=== PATIENT | female | born 1970 | race Caucasian/White ===

== ENCOUNTER → 2019-10-03 14:01 | Outpatient (BNVA) | payer MEDICAID, SELFPAY | PROVIDERS: Family Provider Family Medicine; PCP Nurse Practitioner; Visit Provider Anesthesiology | DX: M54.5 Low back pain (principal); Z79.891 Long term (current) use of opiate analgesic | CPT/HCPCS: 99213; 99214 ==

== ENCOUNTER → 2019-10-10 15:27 | Outpatient (BNVA) | payer MEDICAID, SELFPAY | PROVIDERS: Family Provider Family Medicine; PCP Nurse Practitioner; Visit Provider Internal Medicine Rheumatology | DX: M06.00 Rheumatoid arthritis without rheumatoid factor, unspecified site (principal); Z79.899 Other long term (current) drug therapy; Z11.1 Encounter for screening for respiratory tuberculosis; Z11.59 Encounter for screening for other viral diseases; Z72.89 Other problems related to lifestyle | CPT/HCPCS: 36415; 80076; 82565; 86480; 86706; 86803; 87340 ==

== ENCOUNTER → 2019-10-10 15:28 | Outpatient (BNVA) | payer MEDICAID, SELFPAY | PROVIDERS: Family Provider Family Medicine; PCP Nurse Practitioner; Visit Provider Internal Medicine Rheumatology | DX: M06.00 Rheumatoid arthritis without rheumatoid factor, unspecified site (principal) | CPT/HCPCS: 85025 ==

== ENCOUNTER → 2019-11-08 09:15 | Outpatient (BNVA) | payer MEDICAID, SELFPAY | PROVIDERS: Family Provider Family Medicine; PCP Nurse Practitioner; Visit Provider Internal Medicine Rheumatology | DX: M06.00 Rheumatoid arthritis without rheumatoid factor, unspecified site (principal); Z11.59 Encounter for screening for other viral diseases; Z79.899 Other long term (current) drug therapy; M17.0 Bilateral primary osteoarthritis of knee | CPT/HCPCS: 36415; G0463 ==

== ENCOUNTER 2019-11-08 11:02 | Outpatient (CLI) | payer MEDICAID, SELFPAY ==
--- NOTE | 2019-11-08 11:40 | XR_ITS ---
WS: [id number] XR hand RT min 3V* [id number] REASON FOR EXAM: rheumatoid arthritis FINDINGS: The right hand shows no swelling at the styloid processes of the ulna or radius. No destructive changes of the phalanges, metacarpals, carpals. XR/XR hand RT min 3V* [id number] IMPRESSION: Negative right hand.
--- NOTE | 2019-11-08 11:40 | XR_ITS ---
WS: [id number] XR hand LT min 3V* [id number] REASON FOR EXAM: rheumatoid arthritis FINDINGS: No swelling is seen in the wrist area. The phalanges, metacarpals, and carpal bones show no lytic changes or destructive changes. XR/XR hand LT min 3V* [id number] IMPRESSION: Negative left hand.
--- NOTE | 2019-11-08 11:40 | XR_ITS ---
WS: [id number] XR foot RT min 3V* [id number] REASON FOR EXAM: rheumatoid arthritis FINDINGS: The phalanges, metatarsals, tarsals all appear to be essentially normal. A prominent calcaneal spur is seen. XR/XR foot RT min 3V* [id number] IMPRESSION: Prominent calcaneal spur.
== END 2019-11-08 11:03 | disposition home or self-care (01) ==
LOC: RADWPI 11:05
PROVIDERS: Family Provider Family Medicine; PCP Nurse Practitioner; Visit Provider Internal Medicine Rheumatology
DX: M06.00 Rheumatoid arthritis without rheumatoid factor, unspecified site (principal); M77.32 Calcaneal spur, left foot; Z79.899 Other long term (current) drug therapy; Z11.59 Encounter for screening for other viral diseases
CPT/HCPCS: 73130; 73630; 82306; 85651; 86140; 86704

== ENCOUNTER 2020-01-10 08:58 | Outpatient (CLI) | payer MEDICAID, SELFPAY ==
[2020-01-10 09:05] VITALS: BP 143/88; PULSE 97; RESP 16; TEMP 36.8; O2SAT 98
[2020-01-10] MEDS: diphenhydrAMINE 50 mg/mL SDV 1mL 25 MG IVP (10:11)
[2020-01-10] MEDS: rituximab 1,000 MG in sodium chloride 0.9% 250 ML, primary tubing onc 1 EACH 70 MG IV (10:11)
[2020-01-10 14:40] VITALS: BP 130/77; PULSE 83; RESP 16; O2SAT 98
== END 2020-01-10 08:59 | disposition home or self-care (01) ==
LOC: RHEOACUTE 08:58
PROVIDERS: Family Provider Family Medicine; PCP Nurse Practitioner; Visit Provider Internal Medicine Rheumatology
DX: Z79.899 Other long term (current) drug therapy (principal); M06.09 Rheumatoid arthritis without rheumatoid factor, multiple sites
CPT/HCPCS: 36415; 80076; 82565; 85025; 85651; 86140; 96365; 96366; 96374; 96375; J1200; J2930; J7050; J9312

== ENCOUNTER → 2020-01-18 19:24 | Outpatient (BNVA) | payer MEDICAID, SELFPAY | PROVIDERS: Family Provider Family Medicine; PCP Nurse Practitioner; Visit Provider Internal Medicine Rheumatology | DX: D89.9 Disorder involving the immune mechanism, unspecified (principal); Z79.899 Other long term (current) drug therapy; R10.9 Unspecified abdominal pain | CPT/HCPCS: 81001; 87077; 87086; 87186 ==

== ENCOUNTER → 2020-01-25 12:46 | Outpatient (BNVA) | payer MEDICAID, SELFPAY | PROVIDERS: Family Provider Family Medicine; PCP Nurse Practitioner; Visit Provider Nurse Practitioner | DX: M54.5 Low back pain (principal); Z79.891 Long term (current) use of opiate analgesic | CPT/HCPCS: 99214 ==

== ENCOUNTER → 2020-01-31 12:55 | Outpatient (BNVA) | payer MEDICAID, SELFPAY | PROVIDERS: Family Provider Family Medicine; PCP Nurse Practitioner; Visit Provider Internal Medicine Rheumatology | DX: Z79.899 Other long term (current) drug therapy (principal); N39.0 Urinary tract infection, site not specified; A49.9 Bacterial infection, unspecified | CPT/HCPCS: 81001; 87077; 87086; 87186 ==

== ENCOUNTER → 2020-02-22 14:55 | Outpatient (BNVA) | payer MEDICAID, SELFPAY | PROVIDERS: Family Provider Family Medicine; PCP Nurse Practitioner; Visit Provider Anesthesiology | DX: M54.5 Low back pain (principal); Z51.81 Encounter for therapeutic drug level monitoring; Z79.891 Long term (current) use of opiate analgesic | CPT/HCPCS: 99213; 99214 ==

== ENCOUNTER → 2020-03-14 11:54 | Outpatient (BNVA) | payer MEDICAID, SELFPAY | PROVIDERS: Family Provider Family Medicine; PCP Nurse Practitioner; Visit Provider Internal Medicine Rheumatology | DX: E27.40 Unspecified adrenocortical insufficiency (principal); M06.09 Rheumatoid arthritis without rheumatoid factor, multiple sites; M17.0 Bilateral primary osteoarthritis of knee; M51.35 Other intervertebral disc degeneration, thoracolumbar region; M51.36 Other intervertebral disc degeneration, lumbar region; M92.72 Juvenile osteochondrosis of metatarsus, left foot; Z79.899 Other long term (current) drug therapy | CPT/HCPCS: 99214 ==

== ENCOUNTER → 2020-04-24 13:27 | Outpatient (BNVA) | payer MEDICAID, SELFPAY | PROVIDERS: Family Provider Family Medicine; PCP Nurse Practitioner; Visit Provider Nurse Practitioner | DX: M54.5 Low back pain (principal); Z79.891 Long term (current) use of opiate analgesic | CPT/HCPCS: 99214 ==

== ENCOUNTER → 2020-06-17 13:11 | Outpatient (BNVA) | payer MEDICAID, SELFPAY | PROVIDERS: Family Provider Family Medicine; PCP Nurse Practitioner; Visit Provider Internal Medicine Rheumatology | DX: M06.00 Rheumatoid arthritis without rheumatoid factor, unspecified site (principal); Z79.899 Other long term (current) drug therapy; B99.9 Unspecified infectious disease; Z23 Encounter for immunization; Z87.19 Personal history of other diseases of the digestive system; M17.0 Bilateral primary osteoarthritis of knee | CPT/HCPCS: 36415; 80076; 82565; 85025; 85651; 86140; 90471; 90686; 99214 ==

== ENCOUNTER → 2020-06-21 12:36 | Outpatient (BNVA) | payer MEDICAID, SELFPAY | PROVIDERS: Family Provider Family Medicine; PCP Nurse Practitioner; Visit Provider Anesthesiology | DX: M54.5 Low back pain (principal); Z79.891 Long term (current) use of opiate analgesic | CPT/HCPCS: 99212; 99214 ==

== ENCOUNTER → 2020-08-21 12:49 | Outpatient (BNVA) | payer MEDICAID, SELFPAY | PROVIDERS: Family Provider Family Medicine; PCP Nurse Practitioner; Visit Provider Anesthesiology | DX: M54.5 Low back pain (principal); M79.606 Pain in leg, unspecified; Z51.81 Encounter for therapeutic drug level monitoring; Z79.891 Long term (current) use of opiate analgesic | CPT/HCPCS: 99213; 99214 ==

== ENCOUNTER 2020-09-19 13:37 | Outpatient (CLI) | payer MEDICAID, SELFPAY ==
[2020-09-19 14:21] LABS: Basophils % 0.3 %; Hematocrit 44.2 % (37.0-47.0); Hemoglobin 14.8 g/dL (11.5-15.3); Lymphocytes # 0.8 10^3/uL (0.8-4.8); Lymphocytes % 8.2 %; Mean Corpuscular HGB Conc 33.5 g/dL (30.0-36.0); Mean Corpuscular Hemoglobin 29.6 pg (28.0-34.0); Mean Corpuscular Volume 88.4 fL (81-99); Mean Platelet Volume 9.1 fL (7.4-10.4); Monocytes # 0.4 10^3/uL (0.2-0.9); Monocytes % 4.6 %; Neutrophils # 8.27 10^3/uL (1.8-7.7); Neutrophils % 86.5 %; Nucleated Red Blood Cells % 0 %; Platelet Count 460 10^3/cmm (130-400); Red Cell Distribution Width 12.2 % (12.1-15.1); White Blood Count 9.6 10^3/uL (4.0-10.0)
[2020-09-19 14:43] LABS: Alanine Aminotransferase 28 U/L (0-33); Albumin Level 4.4 g/dL (3.5-5.2); Alkaline Phosphatase 70 IU/L (35-105); Aspartate Amino Transferase 14 U/L (0-32); C Reactive Protein 0.8 mg/L (0.0-4.9); Globulin 3.1 g/dL (1.3-4.6); Glomerular Filtration Rate 75.3 mL/min (90-130); Total Bilirubin 0.2 mg/dL (0.15-1.2); Total Protein 7.5 g/dL (6.6-8.7)
[2020-09-19 15:18] LABS: Erythrocyte Sedimentation Rate 16 mm/hr (0-15)
== END 2020-09-19 13:38 | disposition home or self-care (01) ==
LOC: LAB 13:43
PROVIDERS: PCP Nurse Practitioner; Visit Provider Internal Medicine Rheumatology
DX: Z79.899 Other long term (current) drug therapy (principal); M06.00 Rheumatoid arthritis without rheumatoid factor, unspecified site
CPT/HCPCS: 36415; 80076; 82565; 85025; 85651; 86140

== ENCOUNTER → 2020-10-24 13:14 | Outpatient (BNVA) | payer MEDICAID, SELFPAY | PROVIDERS: PCP Nurse Practitioner; Visit Provider Anesthesiology | DX: M54.5 Low back pain (principal); Z79.891 Long term (current) use of opiate analgesic | CPT/HCPCS: 99213 ==

== ENCOUNTER → 2020-12-24 13:16 | Outpatient (BNVA) | payer MEDICAID, SELFPAY | PROVIDERS: PCP Nurse Practitioner; Visit Provider Anesthesiology | DX: M54.5 Low back pain (principal); Z79.891 Long term (current) use of opiate analgesic | CPT/HCPCS: 99213 ==

== ENCOUNTER → 2021-01-07 13:16 | Outpatient (BNVA) | payer MEDICAID, SELFPAY | PROVIDERS: PCP Nurse Practitioner; Visit Provider Internal Medicine Rheumatology | DX: M06.041 Rheumatoid arthritis without rheumatoid factor, right hand (principal); M06.042 Rheumatoid arthritis without rheumatoid factor, left hand; Z79.899 Other long term (current) drug therapy; D80.1 Nonfamilial hypogammaglobulinemia; M17.0 Bilateral primary osteoarthritis of knee; M47.895 Other spondylosis, thoracolumbar region; Z87.891 Personal history of nicotine dependence | CPT/HCPCS: 99214 ==

== ENCOUNTER 2021-01-07 16:24 | Outpatient (CLI) | payer MEDICAID, SELFPAY ==
[2021-01-07 17:06] LABS: Basophils # 0.1 10^3/uL (0.0-0.1); Basophils % 1.3 %; Eosinophils # 0.1 10^3/uL (0.0-0.8); Hematocrit 44.1 % (37.0-47.0); Hemoglobin 14.7 g/dL (11.5-15.3); Lymphocytes # 1.7 10^3/uL (0.8-4.8); Lymphocytes % 19.8 %; Mean Corpuscular HGB Conc 33.3 g/dL (30.0-36.0); Mean Corpuscular Hemoglobin 30.1 pg (28.0-34.0); Mean Corpuscular Volume 90.2 fL (81-99); Mean Platelet Volume 8.7 fL (7.4-10.4); Monocytes # 0.5 10^3/uL (0.2-0.9); Neutrophils # 6.24 10^3/uL (1.8-7.7); Neutrophils % 71.6 %; Nucleated Red Blood Cells % 0 %; Platelet Count 401 10^3/cmm (130-400); Red Blood Count 4.89 10^6/uL (4.1-5.3); Red Cell Distribution Width 13.1 % (12.1-15.1); White Blood Count 8.7 10^3/uL (4.0-10.0)
[2021-01-07 20:07] LABS: Alanine Aminotransferase 52 U/L (0-33); Albumin Level 4.7 g/dL (3.5-5.2); Alkaline Phosphatase 69 IU/L (35-105); Aspartate Amino Transferase 31 U/L (0-32); C Reactive Protein 4.4 mg/L (0.0-4.9); Globulin 2.5 g/dL (1.3-4.6); Glomerular Filtration Rate 87.9 mL/min (90-130); Total Bilirubin 0.3 mg/dL (0.15-1.2); Total Protein 7.2 g/dL (6.6-8.7)
[2021-01-08 12:27] LABS: Creatinine, Random Urine 55 mg/dL (20-275); Protein, Total, Random 9 mg/dL (5-24); Protein/Creatinine Ratio 0.164 (0.021-0.161); Protein/Creatinine Ratio 164 mg/g creat (21-161)
[2021-01-09 08:58] LABS: Albumin,Urine Random 100 %; Alpha-1-Globulins Urine Random 0 %; Alpha-2-Globulins Urine Random 0 %; Beta-Globulin,Urine Random 0 %; Gamma Globulin,Urine Random 0 %
[2021-01-09 13:18] LABS: ALBUMIN 4.4 g/dL (3.8-4.8); ALPHA 1 GLOBULIN 0.4 g/dL (0.2-0.3); ALPHA 2 GLOBULIN 0.8 g/dL (0.5-0.9); BETA 1 GLOBULIN 0.6 g/dL (0.4-0.6); BETA 2 GLOBULIN 0.3 g/dL (0.2-0.5); GAMMA GLOBULIN 0.6 g/dL (0.8-1.7)
== END 2021-01-07 16:25 | disposition home or self-care (01) ==
PROVIDERS: PCP Nurse Practitioner; Visit Provider Internal Medicine Rheumatology
DX: M06.041 Rheumatoid arthritis without rheumatoid factor, right hand (principal); M06.042 Rheumatoid arthritis without rheumatoid factor, left hand; Z79.899 Other long term (current) drug therapy
CPT/HCPCS: 36415; 80076; 82565; 84155; 84165; 84260; 85025; 86140; 86335; 86355; 86357; 86359; 86360

== ENCOUNTER → 2021-02-21 13:35 | Outpatient (BNVA) | payer MEDICAID, SELFPAY | PROVIDERS: PCP Nurse Practitioner; Visit Provider Anesthesiology | DX: M54.5 Low back pain (principal); Z79.891 Long term (current) use of opiate analgesic; Z79.899 Other long term (current) drug therapy | CPT/HCPCS: 99213 ==

== ENCOUNTER → 2021-04-15 08:26 | Outpatient (BNVA) | payer MEDICAID, SELFPAY | PROVIDERS: PCP Nurse Practitioner; Visit Provider Anesthesiology | DX: M54.5 Low back pain (principal); Z51.81 Encounter for therapeutic drug level monitoring; Z79.899 Other long term (current) drug therapy; Z79.891 Long term (current) use of opiate analgesic | CPT/HCPCS: 99213 ==

== ENCOUNTER → 2021-06-17 08:16 | Outpatient (BNVA) | payer MEDICAID, SELFPAY | PROVIDERS: PCP Nurse Practitioner; Visit Provider Anesthesiology | DX: M54.50 Low back pain, unspecified (principal); Z02.89 Encounter for other administrative examinations; Z51.81 Encounter for therapeutic drug level monitoring; Z79.899 Other long term (current) drug therapy; Z79.891 Long term (current) use of opiate analgesic | CPT/HCPCS: 99213 ==

== ENCOUNTER → 2021-07-15 09:44 | Outpatient (BNVA) | payer MEDICAID, SELFPAY | PROVIDERS: PCP Family Medicine; Visit Provider Anesthesiology | DX: M54.50 Low back pain, unspecified (principal); Z51.81 Encounter for therapeutic drug level monitoring; Z79.891 Long term (current) use of opiate analgesic; Z79.899 Other long term (current) drug therapy; Z87.891 Personal history of nicotine dependence | CPT/HCPCS: 99213 ==

== ENCOUNTER → 2021-09-11 09:45 | Outpatient (BNVA) | payer MEDICAID, SELFPAY | PROVIDERS: PCP Family Medicine; Visit Provider Anesthesiology | DX: M54.50 Low back pain, unspecified (principal); Z79.891 Long term (current) use of opiate analgesic; Z79.899 Other long term (current) drug therapy | CPT/HCPCS: 99213 ==

== ENCOUNTER → 2021-09-22 11:45 | Outpatient (BNVA) | payer MEDICAID, SELFPAY | PROVIDERS: PCP Family Medicine; Visit Provider Internal Medicine Rheumatology | DX: M06.041 Rheumatoid arthritis without rheumatoid factor, right hand (principal); M06.042 Rheumatoid arthritis without rheumatoid factor, left hand; Z79.899 Other long term (current) drug therapy; D80.1 Nonfamilial hypogammaglobulinemia; M17.0 Bilateral primary osteoarthritis of knee; M47.896 Other spondylosis, lumbar region; M47.894 Other spondylosis, thoracic region; E27.40 Unspecified adrenocortical insufficiency; Z87.19 Personal history of other diseases of the digestive system; Z90.49 Acquired absence of other specified parts of digestive tract; Z71.89 Other specified counseling | CPT/HCPCS: 99214 ==

== ENCOUNTER → 2022-01-07 11:32 | Outpatient (BNVA) | payer MEDICAID, SELFPAY | PROVIDERS: PCP Family Medicine; Visit Provider Internal Medicine Rheumatology | DX: M06.041 Rheumatoid arthritis without rheumatoid factor, right hand (principal); M06.042 Rheumatoid arthritis without rheumatoid factor, left hand; M15.9 Polyosteoarthritis, unspecified; Z79.899 Other long term (current) drug therapy; D80.1 Nonfamilial hypogammaglobulinemia; Z71.89 Other specified counseling; Z90.49 Acquired absence of other specified parts of digestive tract | CPT/HCPCS: 99214 ==

== ENCOUNTER 2022-02-05 04:33 | Observation (INO) | payer MEDICAID, SELFPAY ==
[2022-02-05] VITALS (15 sets, daily range): BP systolic 131–172; BP diastolic 81–115; PULSE 73–98; RESP 14–22; TEMP 36.5–36.9; O2SAT 93–100; BMI 36.0; BMI 34.7
--- NOTE | 2022-02-05 04:35 | ED_ITS ---
Documented by User: Byron Rodriguez MD 02/18/22 19:36 HPI - Abdominal Pain General: Chief Complaint: Abdominal Pain Stated Complaint: ABD pain Time Seen by Provider: 02/05/22 04:36 History of Present Illness: Ms. Smith is a 51-year-old lady with history of se ronegative rheumatoid arthritis, hypogammaglobulinemia, history of diverticulitis, and history of abdominal surgery who presents to the emergency department due to abdominal pain. Onset of symptoms was subacute approximately 36 hours ago without known specific provoking event. She reports initially mild symptoms however they progressively worsened and are now moderate to severe. This has been a significant worsening over the past 6 hours. She has had a few episodes of nonbloody emesis. She reports a small bowel movement yesterday morning which was loose. Denies other changes in bowel movements or urination. No vaginal bleeding or discharge. She reports that this feels similar to prior episode of bowel perforation related to medication that required resection of colon a few years ago No other specific changes in health, exacerbating, or alleviating factors identified. Onset (ago): hour(s) Pain Consistency: constant Location: Diffuse Severity: severe Radiation: back Exacerbating factors: movement Relieving factors: nothing Associated Symptoms: Reports nausea and vomiting Review of Systems General: Reports: 10 or more systems reviewed and unremarkable except in HPI and below GI: Reports: nausea and vomiting PFSH ED PFSH: Medical History Anxiety state Back pain, lumbosacral Cholecystectomy planned Cystocele Encounter for long-term use of opiate analgesic High risk medication use Hx of diverticulitis of colon Hypogammaglobulinemia Immunization counseling Immunosuppression Opioid contract exists Rectocele Recurrent infections Rheumatoid arthritis with negative rheumatoid factor Seronegative rheumatoid arthritis Seronegative rheumatoid arthritis of both hands Surgical History H/O arthroscopic knee surgery H/O section H/O dilation and curettage H/O hernia repair H/O left knee surgery ACL right History of colon resection Family History Other CAD (coronary artery disease) Diabetes Hypertension Psychiatric illness Rheumatoid arthritis Systemic lupus erythematosus, unspecified Denies family history of Anesthesia complication Bleeding disorder Social History Smoking and tobacco status: never smoked Second hand smoke exposure: No Alcohol intake: former History of recent travel: No Physical Exam Const: COMMON NORMALS: alert GENERAL APPEARANCE: cooperative, well developed, in distress (Physical discomfort due to pain) and ill appearing (Mildly) HENMT: COMMON NORMALS: normocephalic and atraumatic HEAD & SCALP: normocephalic and atraumatic Eye: COMMON NORMALS: conjunctivae normal CONJUNCTIVA: Yes conjunctivae normal SCLERA: sclerae normal Neck/C-Spine: COMMON NORMALS: supple GENERAL: Yes trachea midline Resp: COMMON NORMALS: normal respiratory effort and clear to auscultation bilaterally EFFORT & INSPECTION: Yes able to speak in complete sentences AUSCULTATION: clear to auscultation bilaterally Cardio: COMMON NORMALS: regular rhythm RATE: tachycardic RHYTHM: regular rhythm GI: COMMON NORMALS: Soft to palpation PALPATION: Yes Soft to palpation, Yes Tenderness to palpation present (GI), No Guarding due to palpation present (GI) and No Rigid due to palpation PERCUSSION: normal to percussion Extremity: GENERAL: Yes normal exam except as noted and No edema Neuro: COMMON NORMALS: moves all extremities SENSORIUM/ORIENTATION: Yes alert and No Orientation impaired Psych: COMMON NORMALS: mental status grossly normal and Normal thought process present THOUGHT PROCESS: Normal thought process present Course ED course: - Patient was seen and evaluated by me at bedside - Patient placed on cardiac monitors, IV access obtained - Initial evaluation notable for exam as above, discomfort due to pain. - Labs and xrays personally interpreted by me. EKG notable for sinus rhythm, nonspecific abnormalities, no STEMI. -Analgesia and antiemetic ordered. - Labs notable for minimal leukocytosis, normal hemoglobin. Electrolytes unremarkable, mild elevated ALT of unclear etiology. - Patient care handed off to morning ED physician Dr. Jones pending imaging read for disposition. Vital Signs: Vital signs: Vital Signs Temperature 98.4 F 02/06/22 15:30 Pulse Rate 101 H 02/06/22 15:30 Respiratory Rate 16 02/06/22 15:30 Blood Pressure 152/100 02/06/22 15:30 Pulse Oximetry 97 02/06/22 15:30 MDM - Abdominal Pain Medical Records I reviewed the patient's medical records. Lab Data I reviewed the patient's lab results. : 02/06/22 03:04 02/06/22 03:04 Labs/Radiology: Radiology Impressions Abdomen/Pelvis CT 02/05/22 05:10 IMPRESSION: Infraumbilical ventral hernia causing small bowel obstruction with signs suggesting strangulation. ADDENDUM: 02/05/22 0658 THIS REPORT CONTAINS FINDINGS THAT MAY BE CRITICAL TO PATIENT CARE. The exam findings were verbally communicated by me via telephone conference to DR. JONES at 6:50 AM CDT on 02/05/2022. The findings were acknowledged and understood. Chest X-Ray 02/05/22 08:52 Impression: Insertion of nasogastric tube. Laboratory Results WBC 10.3 10^3/uL (4.0-10.0) H 02/05/22 04:45 RBC 5.10 10^6/uL (4.1-5.3) 02/05/22 04:45 Hgb 15.2 g/dL (11.5-15.3) 02/05/22 04:45 Hct 43.6 % (37.0-47.0) 02/05/22 04:45 MCV 85.5 fl (81-99) 02/05/22 04:45 MCH 29.8 pg (28.0-34.0) 02/05/22 04:45 MCHC 34.9 g/dL (30.0-36.0) 02/05/22 04:45 RDW 12.8 % (12.1-15.1) 02/05/22 04:45 Plt Count 387 10^3/cmm (130-400) 02/05/22 04:45 MPV 8.9 fL (7.4-10.4) 02/05/22 04:45 Neut % (Auto) 60.6 % 02/05/22 04:45 Lymph % (Auto) 32.5 % 02/05/22 04:45 [place] % (Auto) 4.4 % 02/05/22 04:45 Eos % (Auto) 1.2 % 02/05/22 04:45 Baso % (Auto) 0.9 % 02/05/22 04:45 Neut # (Auto) 6.23 10^3/uL (1.8-7.7) 02/05/22 04:45 Lymph # (Auto) 3.3 10^3/uL (0.8-4.8) 02/05/22 04:45 [place] # (Auto) 0.5 10^3/uL (0.2-0.9) 02/05/22 04:45 Eos # (Auto) 0.1 10^3/uL (0.0-0.8) 02/05/22 04:45 Baso # (Auto) 0.1 10^3/uL (0.0-0.1) 02/05/22 04:45 Nucleated RBC % (auto) 0 % 02/05/22 04:45 Nucleated RBCs # 0.0 /100WBC 02/05/22 04:45 Sodium 140 mmol/L (136-145) 02/05/22 04:45 Potassium 3.8 mmol/L (3.5-5.1) 02/05/22 04:45 Chloride 98 mmol/L (98-107) 02/05/22 04:45 Carbon Dioxide 29 mmol/L (22-29) 02/05/22 04:45 Anion Gap 16.8 (5-19) 02/05/22 04:45 BUN 13 mg/dL (6-20) 02/05/22 04:45 Creatinine 0.8 mg/dL (0.5-0.9) 02/05/22 04:45 GFR Calculation 75.0 mL/min (90-130) L 02/05/22 04:45 Glucose 128 mg/dL (65-115) H 02/05/22 04:45 Calculated Osmolality 292 mOsm/kg (285-295) 02/05/22 04:45 Lactic Acid 2.6 mmol/L (0.5-2.2) H 02/05/22 04:55 Calcium 9.6 mg/dL (8.5-10.5) 02/05/22 04:45 Total Bilirubin 0.3 mg/dL (0.15-1.2) 02/05/22 04:45 AST 29 U/L (0-32) 02/05/22 04:45 ALT 43 U/L (0-33) H 02/05/22 04:45 Alkaline Phosphatase 76 IU/L (35-105) 02/05/22 04:45 Total Protein 7.6 g/dL (6.6-8.7) 02/05/22 04:45 Albumin 4.5 g/dL (3.5-5.2) 02/05/22 04:45 Globulin 3.1 g/dL (1.3-4.6) 02/05/22 04:45 Lipase 22 U/L (13-60) 02/05/22 04:45 Discharge Plan Discharge Patient Disposition: Admitted As Inpatient Admit Provider: Pola Macias Clinical Impression: Hernia of abdominal wall Condition: Stable Discharge Diet: Advance as tolerated Discharge Activity: Resume usual activity Sign Out Sign Out Data: Patient Sign Out occurred on 02/05/22 at 06:08. Patient's care was discussed, and care was transferred from to Richard Jones DO. Coding Level of Care Code ED Industrial Tractor Driver for Chg Fwd Exam Comprehensive Documented by User: Richard Jones DO 02/05/22 08:17 HPI - Abdominal Pain 2 General: Chief Complaint: Abdominal Pain Stated Complaint: ABD pain Time Seen by Provider: 02/05/22 04:36 PFSH ED PFSH: Medical History Anxiety state Back pain, lumbosacral Cholecystectomy planned Cystocele Encounter for long-term use of opiate analgesic High risk medication use Hx of diverticulitis of colon Hypogammaglobulinemia Immunization counseling Immunosuppression Opioid contract exists Rectocele Recurrent infections Rheumatoid arthritis with negative rheumatoid factor Seronegative rheumatoid arthritis Seronegative rheumatoid arthritis of both hands Surgical History H/O arthroscopic knee surgery H/O section H/O dilation and curettage H/O hernia repair H/O left knee surgery ACL right History of colon resection Family History Other CAD (coronary artery disease) Diabetes Hypertension Psychiatric illness Rheumatoid arthritis Systemic lupus erythematosus, unspecified Denies family history of Anesthesia complication Bleeding disorder Social History Smoking and tobacco status: never smoked Second hand smoke exposure: No Alcohol intake: former History of recent travel: No Course Vital Signs: Vital signs: Vital Signs Temperature 98.4 F 02/06/22 15:30 Pulse Rate 101 H 02/06/22 15:30 Respiratory Rate 16 02/06/22 15:30 Blood Pressure 152/100 02/06/22 15:30 Pulse Oximetry 97 02/06/22 15:30 MDM - Abdominal Pain Medical Decision Making Patient CT exam shows an infraumbilical ventral hernia that has an SBO with likely strangulation. Patient was seen by Dr. Macias in the ER. Dr. Macias was able to reduce. He will admit her to his service for further management. Patient did have an NG tube placed per his request in the ER. Patient was stable upon admission. Lab Data : 02/06/22 03:04 02/06/22 03:04 Labs/Radiology: Radiology Impressions Abdomen/Pelvis CT 02/05/22 05:10 IMPRESSION: Infraumbilical ventral hernia causing small bowel obstruction with signs suggesting strangulation. ADDENDUM: 02/05/22 0658 THIS REPORT CONTAINS FINDINGS THAT MAY BE CRITICAL TO PATIENT CARE. The exam findings were verbally communicated by me via telephone conference to DR. JONES at 6:50 AM CDT on 02/05/2022. The findings were acknowledged and understood. Chest X-Ray 02/05/22 08:52 Impression: Insertion of nasogastric tube. Laboratory Results WBC 10.3 10^3/uL (4.0-10.0) H 02/05/22 04:45 RBC 5.10 10^6/uL (4.1-5.3) 02/05/22 04:45 Hgb 15.2 g/dL (11.5-15.3) 02/05/22 04:45 Hct 43.6 % (37.0-47.0) 02/05/22 04:45 MCV 85.5 fl (81-99) 02/05/22 04:45 MCH 29.8 pg (28.0-34.0) 02/05/22 04:45 MCHC 34.9 g/dL (30.0-36.0) 02/05/22 04:45 RDW 12.8 % (12.1-15.1) 02/05/22 04:45 Plt Count 387 10^3/cmm (130-400) 02/05/22 04:45 MPV 8.9 fL (7.4-10.4) 02/05/22 04:45 Neut % (Auto) 60.6 % 02/05/22 04:45 Lymph % (Auto) 32.5 % 02/05/22 04:45 [place] % (Auto) 4.4 % 02/05/22 04:45 Eos % (Auto) 1.2 % 02/05/22 04:45 Baso % (Auto) 0.9 % 02/05/22 04:45 Neut # (Auto) 6.23 10^3/uL (1.8-7.7) 02/05/22 04:45 Lymph # (Auto) 3.3 10^3/uL (0.8-4.8) 02/05/22 04:45 [place] # (Auto) 0.5 10^3/uL (0.2-0.9) 02/05/22 04:45 Eos # (Auto) 0.1 10^3/uL (0.0-0.8) 02/05/22 04:45 Baso # (Auto) 0.1 10^3/uL (0.0-0.1) 02/05/22 04:45 Nucleated RBC % (auto) 0 % 02/05/22 04:45 Nucleated RBCs # 0.0 /100WBC 02/05/22 04:45 Sodium 140 mmol/L (136-145) 02/05/22 04:45 Potassium 3.8 mmol/L (3.5-5.1) 02/05/22 04:45 Chloride 98 mmol/L (98-107) 02/05/22 04:45 Carbon Dioxide 29 mmol/L (22-29) 02/05/22 04:45 Anion Gap 16.8 (5-19) 02/05/22 04:45 BUN 13 mg/dL (6-20) 02/05/22 04:45 Creatinine 0.8 mg/dL (0.5-0.9) 02/05/22 04:45 GFR Calculation 75.0 mL/min (90-130) L 02/05/22 04:45 Glucose 128 mg/dL (65-115) H 02/05/22 04:45 Calculated Osmolality 292 mOsm/kg (285-295) 02/05/22 04:45 Lactic Acid 2.6 mmol/L (0.5-2.2) H 02/05/22 04:55 Calcium 9.6 mg/dL (8.5-10.5) 02/05/22 04:45 Total Bilirubin 0.3 mg/dL (0.15-1.2) 02/05/22 04:45 AST 29 U/L (0-32) 02/05/22 04:45 ALT 43 U/L (0-33) H 02/05/22 04:45 Alkaline Phosphatase 76 IU/L (35-105) 02/05/22 04:45 Total Protein 7.6 g/dL (6.6-8.7) 02/05/22 04:45 Albumin 4.5 g/dL (3.5-5.2) 02/05/22 04:45 Globulin 3.1 g/dL (1.3-4.6) 02/05/22 04:45 Lipase 22 U/L (13-60) 02/05/22 04:45 Discharge Plan Discharge Patient Disposition: Admitted As Inpatient Admit Provider: Pola Macias Clinical Impression: Hernia of abdominal wall Condition: Stable Discharge Diet: Advance as tolerated Discharge Activity: Resume usual activity Sign Out Sign Out Data: Patient Sign Out occurred on 02/05/22 at 06:08. Patient's care was discussed, and care was transferred from to Richard Jones . Coding Level of Care Code ED Industrial Tractor Driver for Dannyg Fwd Exam Comprehensive
--- NOTE | 2022-02-05 04:44 | ECG_ITS ---
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 Measurements Intervals [place] Rate: P: RI: QRS: QRSD: T: QT: QTc: Interpretive Statements Normal sinus rhythm Possible left atrial enlargement Possible old septal IN ATYPICAL ECG WARNING: DATA QUALITY MAY AFFECT INTERPRETATION Compared to ECG 08/08/2017 12:25:41 Sinus rhythm no longer present Electronically Signed On 02-06-2022 5:44:44 CDT by Kun Spencer M.D. [email or web address]
[2022-02-05] MEDS: morphine 4 mg/mL SDV 1 mL IVP ×4 (04:48→17:56)
[2022-02-05] MEDS: ondansetron 2 mg/ML SDV 2 mL 4 MG IVP ×3 (04:49→15:22)
[2022-02-05 04:52] LABS: Basophils # 0.1 10^3/uL (0.0-0.1); Basophils % 0.9 %; Eosinophils # 0.1 10^3/uL (0.0-0.8); Eosinophils % 1.2 %; Hematocrit 43.6 % (37.0-47.0); Hemoglobin 15.2 g/dL (11.5-15.3); Lymphocytes # 3.3 10^3/uL (0.8-4.8); Lymphocytes % 32.5 %; Mean Corpuscular HGB Conc 34.9 g/dL (30.0-36.0); Mean Corpuscular Hemoglobin 29.8 pg (28.0-34.0); Mean Corpuscular Volume 85.5 fl (81-99); Mean Platelet Volume 8.9 fL (7.4-10.4); Monocytes # 0.5 10^3/uL (0.2-0.9); Monocytes % 4.4 %; Neutrophils # 6.23 10^3/uL (1.8-7.7); Neutrophils % 60.6 %; Nucleated Red Blood Cells % 0 %; Platelet Count 387 10^3/cmm (130-400); Red Cell Distribution Width 12.8 % (12.1-15.1); White Blood Count 10.3 10^3/uL (4.0-10.0)
--- NOTE | 2022-02-05 05:10 | CTR_ITS ---
PROCEDURE INFORMATION: Exam: CT Abdomen And Pelvis With Contrast Exam date and time: 02/05/2022 5:25 AM Age: 51 years old Clinical indication: Abdominal pain; Prior surgery; Surgery type: Csection. Hernia repair. Colon resection. Patient HX: C/O severe periumbilical pain x 3 days. History of bowel perforation. ; Additional info: Abdominal pain, n/v, radiation to back; elevated lactic acid. TECHNIQUE: Imaging protocol: Computed tomography of the abdomen and pelvis with contrast. Radiation optimization: All CT scans at this facility use at least one of these dose optimization techniques: automated exposure control; mA and/or kV adjustment per patient size (includes targeted exams where dose is matched to clinical indication); or iterative reconstruction. Contrast material: OMNI 350; Contrast volume: 75 ml; Contrast route: INTRAVENOUS (IV); COMPARISON: CT Abdomen/Pelvis Renal [id number] 05/18/2016 9:30 AM RADIATION DOSE METRICS: Total DLP (mGy-cm): 1645.15 FINDINGS: Liver: The liver is homogeneous and is not enlarged. Gallbladder and bile ducts: Prior cholecystectomy. No biliary ductal dilatation allowing for that. Pancreas: No pancreatic mass. No peripancreatic inflammation. No pancreatic ductal dilation. Spleen: The spleen is homogeneous and is not enlarged. Adrenal glands: No adrenal mass. Kidneys and ureters: No hydronephrosis, nephrolithiasis, or renal mass. Stomach and bowel: There are multiple loops of mid and distal small bowel which are distended, contain fluid, and demonstrate air-fluid levels and a small bowel feces sign . There is wall thickening involving the terminal ileum which is located in an infraumbilical ventral hernia. Large amount of stool in the proximal colon. No diverticulitis. Prior resection in the sigmoid colon with a widely patent anastomosis. Appendix: No evidence of appendicitis. Intraperitoneal space: There is small volume low-attenuation free intraperitoneal fluid. No pneumoperitoneum. Vasculature: No abdominal aortic aneurysm. The mesenteric arteries are patent. The mesenteric, portal, and hepatic veins are patent. Lymph nodes: No enlarged lymph nodes. Urinary bladder: No urinary bladder calculus or wall thickening. Reproductive: Prior hysterectomy. Bones/joints: Multilevel facet arthropathy in the lumbar spine. Grade 1 degenerative spondylolisthesis at L4-L5. Multilevel disc degeneration with vacuum disc phenomenon in the lower thoracic spine. Nonspecific sclerotic focus in the L5 vertebral body. Soft tissues: There is an infraumbilical ventral hernia containing fluid and a short segment of small bowel. The bowel in the hernia is the terminal ileum as the cecum is located in the mid abdomen. This is associated with obstruction of the small bowel. The terminal ileal wall is thickened. CT/CT abdomen pelvis w con* [id number] IMPRESSION: Infraumbilical ventral hernia causing small bowel obstruction with signs suggesting strangulation.
[2022-02-05 05:20] LABS: Alanine Aminotransferase 43 U/L (0-33); Albumin Level 4.5 g/dL (3.5-5.2); Alkaline Phosphatase 76 IU/L (35-105); Anion Gap 16.8 (5-19); Aspartate Amino Transferase 29 U/L (0-32); Blood Urea Nitrogen 13 mg/dL (6-20); Calcium 9.6 mg/dL (8.5-10.5); Carbon Dioxide 29 mmol/L (22-29); Chloride 98 mmol/L (98-107); Globulin 3.1 g/dL (1.3-4.6); Glucose 128 mg/dL (65-115); Lipase 22 U/L (13-60); Osmolality Calculated 292 mOsm/kg (285-295); Potassium 3.8 mmol/L (3.5-5.1); Sodium 140 mmol/L (136-145); Total Bilirubin 0.3 mg/dL (0.15-1.2); Total Protein 7.6 g/dL (6.6-8.7)
[2022-02-05 05:21] LABS: Lactic Sepsis W/Reflex 2.6 mmol/L (0.5-2.2)
[2022-02-05] MEDS: iohexol 350 mg/mL 100 mL Btl IV (05:23)
[2022-02-05] MEDS: sodium chloride 0.9% 1,000 ML 999 ML IV (05:47)
[2022-02-05] MEDS: morphine 4 mg/mL SDV 1 mL 2 MG IVP (06:36)
[2022-02-05 06:43] LABS: Reflex Lactate Order REFLEX LACTIC ORDERD
--- NOTE | 2022-02-05 07:50 | PC.NURSE ---
Patient reports pain and nausea.
--- NOTE | 2022-02-05 08:52 | XR_ITS ---
WS: [id number] Portable AP upright chest, 02/05/2022 Clinical Data: ng tube placement Comparison: Portable chest, 08/08/2017. Findings: A nasogastric gastric tube has been inserted and appears to end in the body of the stomach. No acute cardiopulmonary changes are seen. XR/XR chest 1V [id number] Impression: Insertion of nasogastric tube.
--- NOTE | 2022-02-05 09:48 | PC.NURSE ---
Called pharmacy for antibiotic, stated they are working on the verification so that medication can be pulled.
[2022-02-05] MEDS: piperacillin-tazobactam 3.375 GM in sodium chloride 0.9% (plus) 50 ML IV ×2 (09:55→17:54)
--- NOTE | 2022-02-05 10:21 | PC.NURSE ---
Patient ambulating to the bathroom.
[2022-02-05 10:48] LABS: Lactic Acid level (Lactate) 1.1 mmol/L (0.5-2.2)
--- NOTE | 2022-02-05 11:38 | P.HP_ITS ---
Providers/Chief Complaint Admitting Physician: Pola Macias DO Primary Care Provider: Nir Paulson Chief Complaint: ABD pain History of Present Illness Cathi Smith is a 51 year old female who presented to the hospital with a 3-day history of abdominal pain. She reports that her pain began to become severe 12 hours ago prompting her to come to the hospital. She reports nausea and vomiting. Denies any hematemesis. Her pain is suprapubic sharp and severe. Pain does not radiate. Palpation makes the pain worse. Nothing makes pain better. She had not had a bowel movement in 1 day. Denies any other symptoms Review of Systems General: Reports: 10 or more systems reviewed and unremarkable except in HPI and below Medications/Allergies Home Medications Medication Instructions Recorded Confirmed Last Taken Type conjugated estrogens 0.625 mg/gram 0.625 mg VAGINAL .COMPLEX 10/03/19 02/05/22 02/04/22 History vaginal cream (Premarin) losartan 100 mg tablet 100 mg PO DAILY 10/03/19 02/05/22 02/04/22 History promethazine 25 mg tablet 25 mg PO Q6H PRN 10/03/19 02/05/22 Unknown History fluticasone propionate 50 1 spray INTRANASAL DAILY 11/08/19 02/05/22 Unknown History mcg/actuation nasal spray,suspension levalbuterol tartrate 45 2 inh INHALATION Q4H PRN gm 11/08/19 02/05/22 Unknown History mcg/actuation aerosol inhaler (Xopenex HFA) mometasone-formoterol HFA 100 2 puff INHALATION BID 11/08/19 02/05/22 Unknown History mcg-5 mcg/actuation aerosol inhaler (Dulera) lancets 33 gauge (Micro Thin #100 each 11/09/19 02/05/22 Unknown History Lancets) azelastine 137 mcg (0.1 %) nasal 1 spray INTRANASAL BID 11/29/19 02/05/22 Unknown History spray aerosol ascorbic acid (vitamin C) 500 mg 500 mg PO DAILY cap 01/25/20 02/05/22 02/04/22 History capsule vitamin B complex 1 cap PO DAILY 01/25/20 02/05/22 02/04/22 History famotidine 40 mg tablet 40 mg PO DAILY #90 tab 03/05/20 02/05/22 02/04/22 Rx jaden root 1 tab PO DAILY 04/24/20 02/05/22 02/04/22 History cholecalciferol (vitamin D3) 50 50 mcg PO DAILY 06/17/20 02/05/22 02/04/22 His tory mcg (2,000 unit) capsule spironolactone 50 mg tablet 50 mg PO BID #60 tab 07/26/20 02/05/22 02/04/22 Rx hydrocortisone 10 mg tablet 20 mg PO BID tab 01/07/21 02/05/22 02/04/22 History immune globulin,gamma(IgG)klhw 10 g SUBCUT Q7D ml 04/15/21 02/05/22 Unknown History levocetirizine 5 mg tablet (Xyzal) 5 mg PO DAILY 06/17/21 02/05/22 02/04/22 History metformin 500 mg tablet 500 mg PO BID 06/17/21 02/05/22 02/04/22 History hydrocodone 10 mg-acetaminophen 1 tab PO .5 times a day PRN 30 09/11/21 02/05/22 Unknown Rx 325 mg tablet Days #150 tab sarilumab 200 mg/1.14 mL 200 mg (1.14 mL) SUBCUT .[id number] 12/16/21 02/05/22 Unknown Rx subcutaneous pen injector (Jeffzara) #2.28 ml prednisone 10 mg tablet See Rx Instructions PO .COMPLEX 01/07/22 02/05/22 Unknown Rx PRN #30 tab amlodipine 5 mg tablet 5 mg PO DAILY 02/05/22 02/05/22 02/04/22 History diclofenac sodium 1 % topical gel 4 g TOPICAL QID PRN 02/05/22 02/05/22 Unknown History Allergies Allergy/AdvReac Type Severity Reaction Status Date / Time gabapentin Allergy unknown Verified 01/07/22 11:52 albuterol AdvReac Unknown RASH, Verified 01/07/22 11:52 BLISTERS TO FACE AND HTN certolizumab pegol AdvReac Unknown SWELLING Verified 01/07/22 11:52 [From Cimzia] etanercept [From Enbrel] AdvReac Unknown UNKNOWN Verified 01/07/22 11:52 hydralazine AdvReac Unknown HEADACHE/HT Verified 01/07/22 11:52 N/FLUSHING lisinopril AdvReac Unknown Unknown Verified 01/07/22 11:52 PFSH Acute 2 PFSH: Medical History Anxiety state Back pain, lumbosacral Cholecystectomy planned Cystocele Encounter for long-term use of opiate analgesic High risk medication use Hx of diverticulitis of colon Hypogammaglobulinemia Immunization counseling Immunosuppression Opioid contract exists Rectocele Recurrent infections Rheumatoid arthritis with negative rheumatoid factor Seronegative rheumatoid arthritis Seronegative rheumatoid arthritis of both hands Surgical History H/O arthroscopic knee surgery H/O section H/O dilation and curettage H/O hernia repair H/O left knee surgery ACL right History of colon resection Family History Other CAD (coronary artery disease) Diabetes Hypertension Psychiatric illness Rheumatoid arthritis Systemic lupus erythematosus, unspecified Denies family history of Anesthesia complication Bleeding disorder Social History Smoking and tobacco status: never smoked Second hand smoke exposure: No Alcohol intake: former History of recent travel: No Vitals/I&O/Wt Last Vital Signs Temp 98.0 F 02/05/22 04:45 Pulse 82 02/05/22 10:10 Resp 18 02/05/22 10:10 BP 143/81 02/05/22 10:10 Pulse Ox 93 02/05/22 10:10 Weight last 48 hrs Weight 230 lb Physical Exam Narrative: General : Patient is well developed , no acute distress, oriented x3 Head : Normal cephalic, a-traumatic. Ears : Pinnae and external canal are normal. Hearing is normal. Eyes : PERRLA, Sclera and injection are normal. No conjunctival discharge. Nose : Mucous membranes are without erythema. Throat : buccal mucosa is normal, gums are without significant recession or hypertrophy. Lungs : Equal chest rise bilaterally, no use of accessory muscles, trachea is midline. Cor : Rate and rhythm are normal. Abdomen : Soft, distended, tender palpation suprapubically over an incisional hernia which I was able to reduce no g/r/m Extremities : No edema, no cyanosis or clubbing, dorsalis pedis pulses are present bilaterally, non-tender to palpation of calves. Upper extremities are normal bilaterally. Back : non-tender to palpation, no CVA tenderness. Neuro : CN II - XII intact, Upper and lower extremities have equal and full strength Data : 02/05/22 04:45 02/05/22 04:45 A&P Assessment and plan (1) Incarcerated incisional hernia: Status: Acute (2) Small bowel obstruction: Status: Acute Plan CT shows signs of strangulation. I was able to reduce her hernia. I will admit her and take her to the operating room. To OR for laparoscopic incisional hernia repair with mesh, possible open The risks and benefits of the procedure, including but not limited to, bleeding, infection, mesh infection requiring mesh excision antibiotic therapy and repeat surgery, damage surrounding structures, conversion to an open procedure, scar, numbness, pain, and/or recurrence were explained to the patient. Patient is understanding of the risks and wishes to proceed. See orders Attestations Medical Necessity Statement*: Patient has had a surgery for repair of incarcerated incisional hernia. 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
[2022-02-05] MEDS: pantoprazole 40 mg SDV IVP (12:40)
--- NOTE | 2022-02-05 13:09 | PC.NURSE ---
Patient went to surgery
--- NOTE | 2022-02-05 13:29 | ANES.PREANE2 ---
Pre-Anesthetic Assessment Height/Weight: Height 1.7 m Weight 100.743 kg Temp Pulse Resp BP Pulse Ox 97.8 F 80 18 155/84 99 02/05/22 13:19 02/05/22 13:19 02/05/22 13:19 02/05/22 13:19 02/05/22 13:19 Operation Date: 02/05/22 13:05 Proposed Procedures p Laparoscopic Incisional Hernia Repair(Not Applicable) - Pola Macias DO Familial anesthetic complications: PONV Was Beta Hank taken within 24 hours: N/A Was Clonidine taken within 24 hours: N/A Last intake: Intake Last Liquid Date 02/05/22 Last Liquid Time 00:00 Last Solid Date 02/04/22 Last Solid Time 14:00 Social No alcohol and No tobacco Exam alert, oriented x 3, clear to auscultation bilaterally and regular rate & rhythm Airway Mallampati: Class IV Dentition: full Pulmonary Asthma CV/HEM Hypertension Metabolic Adrenal insufficiency - will give hydrocortisone 100 mg IVP before surgery. Patient has not taken her normal doses todaly Musc/skel Rheumatoid Arthritis (adrenal insufficiency d/t chronic prednisone use) Neuropsych None reported Anesthetic Plan ASA status: 4 Anesthesia: General Risk of > 500 ml blood loss (7ml/kg in children): No Medications/Allergies Home Medications Medication Instructions Recorded Confirmed Last Taken Type conjugated estrogens 0.625 mg/gram 0.625 mg VAGINAL .COMPLEX 10/03/19 02/05/22 02/04/22 History vaginal cream (Premarin) losartan 100 mg tablet 100 mg PO DAILY 10/03/19 02/05/22 02/04/22 History promethazine 25 mg tablet 25 mg PO Q6H PRN 10/03/19 02/05/22 Unknown History fluticasone propionate 50 1 spray INTRANASAL DAILY 11/08/19 02/05/22 Unknown History mcg/actuation nasal spray,suspension levalbuterol tartrate 45 2 inh INHALATION Q4H PRN gm 11/08/19 02/05/22 Unknown History mcg/actuation aerosol inhaler (Xopenex HFA) mometasone-formoterol HFA 100 2 puff INHALATION BID 11/08/19 02/05/22 Unknown History mcg-5 mcg/actuation aerosol inhaler (Dulera) lancets 33 gauge (Micro Thin #100 each 11/09/19 02/05/22 Unknown History Lancets) azelastine 137 mcg (0.1 %) nasal 1 spray INTRANASAL BID 11/29/19 02/05/22 Unknown History spray aerosol ascorbic acid (vitamin C) 500 mg 500 mg PO DAILY cap 01/25/20 02/05/22 02/04/22 History capsule vitamin B complex 1 cap PO DAILY 01/25/20 02/05/22 02/04/22 History famotidine 40 mg tablet 40 mg PO DAILY #90 tab 03/05/20 02/05/22 02/04/22 Rx jaden root 1 tab PO DAILY 04/24/20 02/05/22 02/04/22 History cholecalciferol (vitamin D3) 50 50 mcg PO DAILY 06/17/20 02/05/22 02/04/22 History mcg (2,000 unit) capsule spironolactone 50 mg tablet 50 mg PO BID #60 tab 07/26/20 02/05/22 02/04/22 Rx hydrocortisone 10 mg tablet 20 mg PO BID tab 01/07/21 02/05/22 02/04/22 History immune globulin,gamma(IgG)klhw 10 g SUBCUT Q7D ml 04/15/21 02/05/22 Unknown History levocetirizine 5 mg tablet (Xyzal) 5 mg PO DAILY 06/17/21 02/05/22 02/04/22 History metformin 500 mg tablet 500 mg PO BID 06/17/21 02/05/22 02/04/22 History hydrocodone 10 mg-acetaminophen 1 tab PO .5 times a day PRN 30 09/11/21 02/05/22 Unknown Rx 325 mg tablet Days #150 tab sarilumab 200 mg/1.14 mL 200 mg (1.14 mL) SUBCUT .[id number] 12/16/21 02/05/22 Unknown Rx subcutaneous pen injector (Kevzara) #2.28 ml prednisone 10 mg tablet See Rx Instructions PO .COMPLEX 01/07/22 02/05/22 Unknown Rx PRN #30 tab amlodipine 5 mg tablet 5 mg PO DAILY 02/05/22 02/05/22 02/04/22 History diclofenac sodium 1 % topical gel 4 g TOPICAL QID PRN 02/05/22 02/05/22 Unknown History Allergies Allergy/AdvReac Type Severity Reaction Status Date / Time gabapentin Allergy unknown Verified 01/07/22 11:52 albuterol AdvReac Unknown RASH, Verified 01/07/22 11:52 BLISTERS TO FACE AND HTN certolizumab pegol AdvReac Unknown SWELLING Verified 01/07/22 11:52 [From Cimzia] etanercept [From Enbrel] AdvReac Unknown UNKNOWN Verified 01/07/22 11:52 hydralazine AdvReac Unknown HEADACHE/HT Verified 01/07/22 11:52 N/FLUSHING lisinopril AdvReac Unknown Unknown Verified 01/07/22 11:52 Current Medications Generic Name Dose Route Start Last Admin Trade Name Freq PRN Reason Stop Dose Admin Piperacillin Sod/Tazobactam 50 mls @ 12.5 mls/hr 02/05/22 10:00 02/05/22 09:55 Sod 3.375 gm/ Sodium Chloride IV 12.5 mls/hr Q8H BIGG Administration Protocol Morphine Sulfate 4 mg 02/05/22 12:09 02/05/22 12:39 Morphine 4 Mg/Ml Sdv 1 Ml IVP 4 mg Q4H PRN Administration SEVERE PAIN Pantoprazole Sodium 40 mg 02/05/22 13:00 02/05/22 12:40 Pantoprazole 40 Mg Sdv IVP 40 mg Q24H BIGG Administration PFSH Anesthesia Medical History Anxiety state Back pain, lumbosacral Cholecystectomy planned Cystocele Encounter for long-term use of opiate analgesic High risk medication use Hx of diverticulitis of colon Hypogammaglobulinemia Immunization counseling Immunosuppression Opioid contract exists Rectocele Recurrent infections Rheumatoid arthritis with negative rheumatoid factor Seronegative rheumatoid arthritis Seronegative rheumatoid arthritis of both hands Surgical History H/O arthroscopic knee surgery H/O section H/O dilation and curettage H/O hernia repair H/O left knee surgery ACL right History of colon resection Family History Other CAD (coronary artery disease) Diabetes Hypertension Psychiatric illness Rheumatoid arthritis Systemic lupus erythematosus, unspecified Denies family history of Anesthesia complication Bleeding disorder Social History Smoking and tobacco status: never smoked Second hand smoke exposure: No Alcohol intake: former History of recent travel: No Data Anesthesia : 02/05/22 04:45 02/05/22 04:45 Short CBC 02/05/22 Range/Units 04:45 WBC 10.3 H (4.0-10.0) 10^3/uL Hgb 15.2 (11.5-15.3) g/dL Hct 43.6 (37.0-47.0) % MCV 85.5 (81-99) fl Plt Count 387 (130-400) 10^3/cmm Neut % (Auto) 60.6 % Neut # (Auto) 6.23 (1.8-7.7) 10^3/uL BMP 02/05/22 04:45 Sodium 140 Potassium 3.8 Chloride 98 Carbon Dioxide 29 BUN 13 Creatinine 0.8 Glucose 128 H Calcium 9.6 Liver Function 02/05/22 Range/Units 04:45 Total Bilirubin 0.3 (0.15-1.2) mg/dL AST 29 (0-32) U/L ALT 43 H (0-33) U/L Alkaline Phosphatase 76 (35-105) IU/L Albumin 4.5 (3.5-5.2) g/dL Cardiac Studies: No Data to Display
[2022-02-05] MEDS: scopolamine 1.5 Patch 1 PATCH TRANSDERMA (13:33)
[2022-02-05] MEDS: sodium chloride 0.9% 1,000 ML 30 ML IV (13:34)
[2022-02-05] MEDS: heparin 5,000 unit/mL INJ 1 mL 5000 UNIT SUBCUT (14:43)
--- NOTE | 2022-02-05 15:17 | SUR.PREOP ---
case cancelled for today, supposed to be put on schedule for tomorrow due to OR schedule timing and Dr. Macias states he wants the patient to have more IV antibiotics prior to surgery. patient had NG tube when transported from floor to ops, was not hooked to suction. this was clarified with Dr. Macias and he states NG should be connected to suction on floor. Pt received first dose of heparin SQ injection in ops. Dr. Macias also stated that he would be managing Adrenal meds for patient while she is here and plans to order a dose for this evening and tomorrow morning. all of this was relayed to the patient and the RN Serenity. Patient was transported back to the floor via gurney, awake and alert. NG was connected to low intermittent suction in room. Patient ambulated from gurney to floor bed. Pt in room on arrival. SCDs in place and hooked up in room. RN aware of patient back on floor and plan for surgery for tomorrow.
[2022-02-05] MEDS: lactated ringers 1,000 ML 150 ML IV (15:23)
[2022-02-05] MEDS: HYDROmorphone 1 mg/mL INJ 1 mL IVP (20:40)
[2022-02-05] MEDS: hydrocortisone 100 mg/2 mL SDV IVP (20:55)
[2022-02-06] VITALS (23 sets, daily range): BP systolic 135–190; BP diastolic 66–113; PULSE 67–101; RESP 13–20; TEMP 36.1–37; O2SAT 93–99
[2022-02-06] MEDS: HYDROmorphone 1 mg/mL INJ 1 mL IVP ×3 (01:51→15:17)
[2022-02-06] MEDS: ondansetron 2 mg/ML SDV 2 mL 4 MG IVP (01:51)
[2022-02-06] MEDS: piperacillin-tazobactam 3.375 GM in sodium chloride 0.9% (plus) 50 ML IV ×2 (01:54→10:08)
[2022-02-06] MEDS: lactated ringers 1,000 ML 150 ML IV (01:55)
[2022-02-06 03:59] LABS: Basophils # 0.1 10^3/uL (0.0-0.1); Basophils % 0.8 %; Eosinophils # 0.1 10^3/uL (0.0-0.8); Eosinophils % 0.7 %; Hematocrit 40.5 % (37.0-47.0); Hemoglobin 13.5 g/dL (11.5-15.3); Lymphocytes # 1.3 10^3/uL (0.8-4.8); Lymphocytes % 15.5 %; Mean Corpuscular HGB Conc 33.3 g/dL (30.0-36.0); Mean Corpuscular Hemoglobin 29.3 pg (28.0-34.0); Mean Corpuscular Volume 87.9 fl (81-99); Mean Platelet Volume 9.2 fL (7.4-10.4); Monocytes # 0.3 10^3/uL (0.2-0.9); Neutrophils # 6.62 10^3/uL (1.8-7.7); Neutrophils % 79.6 %; Nucleated Red Blood Cells % 0 %; Platelet Count 363 10^3/cmm (130-400); Red Blood Count 4.61 10^6/uL (4.1-5.3); White Blood Count 8.3 10^3/uL (4.0-10.0)
[2022-02-06 04:32] LABS: Anion Gap 13.2 (5-19); Blood Urea Nitrogen 12 mg/dL (6-20); Calcium 9.2 mg/dL (8.5-10.5); Carbon Dioxide 30 mmol/L (22-29); Chloride 100 mmol/L (98-107); Glucose 114 mg/dL (65-115); Magnesium 2.5 mg/dL (1.7-2.3); Osmolality Calculated 289 mOsm/kg (285-295); Phosphorus 4.9 mg/dL (2.5-4.5); Potassium 4.2 mmol/L (3.5-5.1); Sodium 139 mmol/L (136-145)
--- NOTE | 2022-02-06 07:42 | SUR.OPER ---
Saida used in surgical procedure
[2022-02-06] MEDS: HYDROmorphone 1 mg/mL INJ 1 mL 0.5 MG IVP ×3 (08:35→09:01)
--- NOTE | 2022-02-06 09:31 | PC.NURSE ---
Report called from CHEIKH Vee in PACU
--- NOTE | 2022-02-06 09:48 | PC.NURSE ---
Patient back from OR at this time. Patient is awake and alert. Mild pain noted. Patient returned to floor without previous NG tube. SCDs placed on bilateral legs per order. Will continue to monitor throughout the rest of this shift, passing along care to oncoming shift this evening
--- NOTE | 2022-02-06 10:09 | PC.NURSE ---
Patient brought to patient. No transfer orders were placed. This nurse called PACU and they messaged doctor Macias. Patient is asking for pain medication. All her previous pain medications are on hold at this time.
[2022-02-06] MEDS: amlodipine 5 mg Tablet PO (11:23)
[2022-02-06] MEDS: estrogens Conjugated Cream 30 gm 0.625 APPLIC VAGINAL (12:28)
[2022-02-06] MEDS: pantoprazole 40 mg SDV IVP (12:29)
[2022-02-06] MEDS: HYDROcodone-acetaminophen 10-325 mg Tablet 1 TAB PO (14:04)
[2022-02-06] MEDS: heparin 5,000 unit/mL INJ 1 mL 5000 UNIT SUBCUT (14:10)
--- NOTE | 2022-02-06 14:41 | PM.DCS ---
Discharge Providers Date of Admission: 02/05/22 08:24 Date of Discharge: February 06, 2022 Attending Provider at Admission: Pola Macias DO Attending Provider at Discharge: Pola Macias DO Primary Care Provider: Nir Paulson Diagnoses at Discharge Discharge Diagnosis (1) Incarcerated incisional hernia: Status: Acute (2) Small bowel obstruction: Status: Acute Reason for Visit Reason for Visit: ABD pain Hospital Course Hospital Course 51-year-old female, with a history of perforated colon and hernia repair with mesh, came in with an incarcerated incisional hernia and small bowel obstruction. She underwent laparoscopic incisional hernia repair with mesh. She is tolerating a diet postoperatively and was discharged home in good condition. Physical Exam Narrative: General : Patient is well developed , no acute distress, oriented x3 Head : Normal cephalic, a-traumatic. Ears : Pinnae and external canal are normal. Hearing is normal. Eyes : PERRLA, Sclera and injection are normal. No conjunctival discharge. Nose : Mucous membranes are without erythema. Throat : buccal mucosa is normal, gums are without significant recession or hypertrophy. Lungs : Equal chest rise bilaterally, no use of accessory muscles, trachea is midline. Cor : Rate and rhythm are normal. Abdomen : Soft, ND, appropriately tender, no g/r/m, incisions intact without erythema or exudate Extremities : No edema, no cyanosis or clubbing, dorsalis pedis pulses are present bilaterally, non-tender to palpation of calves. Upper extremities are normal bilaterally. Back : non-tender to palpation, no CVA tenderness. Neuro : CN II - XII intact, Upper and lower extremities have equal and full strength Discharge Data Studies Completed and Pending Completed Studies During Hospitalization Category Date Time Status CT abdomen pelvis w con* [id number] Stat Cat Scan 02/05/22 05:10 Completed XR chest 1V [id number] Stat Exams 02/05/22 08:52 Completed Pending at discharge Category Date Time Status Basic Metabolic Panel AM LABS Lab 02/07/22 04:00 Ordered Basic Metabolic Panel AM LABS Lab 02/08/22 04:00 Ordered Complete Blood Count w/Auto AM LABS Lab 02/07/22 04:00 Ordered Complete Blood Count w/Auto AM LABS Lab 02/08/22 04:00 Ordered Magnesium AM LABS Lab 02/07/22 04:00 Ordered Magnesium AM LABS Lab 02/08/22 04:00 Ordered Phosphorus AM LABS Lab 02/07/22 04:00 Ordered Phosphorus AM LABS Lab 02/08/22 04:00 Ordered Urinalysis Stat Lab 02/05/22 09:30 Ordered Radiology Impressions Abdomen/Pelvis CT 02/05/22 05:10 IMPRESSION: Infraumbilical ventral hernia causing small bowel obstruction with signs suggesting strangulation. ADDENDUM: 02/05/22 0658 THIS REPORT CONTAINS FINDINGS THAT MAY BE CRITICAL TO PATIENT CARE. The exam findings were verbally communicated by me via telephone conference to DR. JONES at 6:50 AM CDT on 02/05/2022. The findings were acknowledged and understood. Chest X-Ray 02/05/22 08:52 Impression: Insertion of nasogastric tube. Laboratory Results WBC 8.3 10^3/uL (4.0-10.0) 02/06/22 03:04 RBC 4.61 10^6/uL (4.1-5.3) 02/06/22 03:04 Hgb 13.5 g/dL (11.5-15.3) 02/06/22 03:04 Hct 40.5 % (37.0-47.0) 02/06/22 03:04 MCV 87.9 fl (81-99) 02/06/22 03:04 MCH 29.3 pg (28.0-34.0) 02/06/22 03:04 MCHC 33.3 g/dL (30.0-36.0) 02/06/22 03:04 RDW 13.0 % (12.1-15.1) 02/06/22 03:04 Plt Count 363 10^3/cmm (130-400) 02/06/22 03:04 MPV 9.2 fL (7.4-10.4) 02/06/22 03:04 Neut % (Auto) 79.6 % 02/06/22 03:04 Lymph % (Auto) 15.5 % 02/06/22 03:04 Talbot % (Auto) 3.0 % 02/06/22 03:04 Eos % (Auto) 0.7 % 02/06/22 03:04 Baso % (Auto) 0.8 % 02/06/22 03:04 Neut # (Auto) 6.62 10^3/uL (1.8-7.7) 02/06/22 03:04 Lymph # (Auto) 1.3 10^3/uL (0.8-4.8) 02/06/22 03:04 Talbot # (Auto) 0.3 10^3/uL (0.2-0.9) 02/06/22 03:04 Eos # (Auto) 0.1 10^3/uL (0.0-0.8) 02/06/22 03:04 Baso # (Auto) 0.1 10^3/uL (0.0-0.1) 02/06/22 03:04 Nucleated RBC % (auto) 0 % 02/06/22 03:04 Nucleated RBCs # 0.0 /100WBC 02/06/22 03:04 Sodium 139 mmol/L (136-145) 02/06/22 03:04 Potassium 4.2 mmol/L (3.5-5.1) 02/06/22 03:04 Chloride 100 mmol/L (98-107) 02/06/22 03:04 Carbon Dioxide 30 mmol/L (22-29) H 02/06/22 03:04 Anion Gap 13.2 (5-19) 02/06/22 03:04 BUN 12 mg/dL (6-20) 02/06/22 03:04 Creatinine 0.8 mg/dL (0.5-0.9) 02/06/22 03:04 GFR Calculation 75.0 mL/min (90-130) L 02/06/22 03:04 Glucose 114 mg/dL (65-115) 02/06/22 03:04 Calculated Osmolality 289 mOsm/kg (285-295) 02/06/22 03:04 Lactic Acid 2.6 mmol/L (0.5-2.2) H 02/05/22 04:55 Lactic Acid (Sepsis) 1.1 mmol/L (0.5-2.2) 02/05/22 10:28 Calcium 9.2 mg/dL (8.5-10.5) 02/06/22 03:04 Phosphorus 4.9 mg/dL (2.5-4.5) H 02/06/22 03:04 Magnesium 2.5 mg/dL (1.7-2.3) H 02/06/22 03:04 Total Bilirubin 0.3 mg/dL (0.15-1.2) 02/05/22 04:45 AST 29 U/L (0-32) 02/05/22 04:45 ALT 43 U/L (0-33) H 02/05/22 04:45 Alkaline Phosphatase 76 IU/L (35-105) 02/05/22 04:45 Total Protein 7.6 g/dL (6.6-8.7) 02/05/22 04:45 Albumin 4.5 g/dL (3.5-5.2) 02/05/22 04:45 Globulin 3.1 g/dL (1.3-4.6) 02/05/22 04:45 Lipase 22 U/L (13-60) 02/05/22 04:45 Procedures Performed Laparoscopic incisional hernia repair with mesh Vitals Last Vital Signs Temp 98.6 F 02/06/22 11:43 Pulse 87 02/06/22 11:43 Resp 16 02/06/22 11:43 BP 142/83 02/06/22 11:43 Pulse Ox 97 02/06/22 11:43 Discharge Plan Discharge Patient Disposition: Home Condition: Stable Prescriptions: Continued losartan 100 mg tablet 100 mg PO DAILY 0RF promethazine 25 mg tablet 25 mg PO Q6H PRN (Reason: Nausea) 0RF Premarin 0.625 mg/gram cream 0.625 mg VAGINAL .COMPLEX 0RF Rx Instructions: 0.625 mg vaginal PEA SIZE 2-3 TIMES PER WEEK; levalbuterol tartrate [Xopenex HFA] 45 mcg/actuation HFA aerosol inhaler 2 inh INHALATION Q4H PRN (Reason: Shortness Of Breath) 0RF Dulera 100-5 mcg/actuation HFA aerosol inhaler 2 puff INHALATION BID 0RF azelastine 137 mcg (0.1 %) aerosol,spray 1 spray INTRANASAL BID 0RF fluticasone propionate 50 mcg/actuation spray,suspension 1 spray INTRANASAL DAILY 0RF (DME) lancets [Micro Thin Lancets] 33 gauge misc See Rx Instructions .ROUTE .MEDSUPPLY Qty: 100 0RF Rx Instructions: As directed ascorbic acid (vitamin C) 500 mg capsule 500 mg PO DAILY 0RF vitamin B complex Capsule 1 cap PO DAILY 0RF hydrocortisone 10 mg tablet 20 mg PO BID 0RF cholecalciferol (vitamin D3) 50 mcg (2,000 unit) capsule 50 mcg PO DAILY 0RF prednisone 10 mg tablet See Rx Instructions PO .COMPLEX PRN (Reason: joint pain flare) Qty: 30 1RF Rx Instructions: take 1 tab daily for 3-7 days prn joint pain flare PO PRN; jaden root 1 tab PO DAILY 0RF immune globulin,gamma(IgG)klhw 10 gram/50 mL (20 %) solution 10 g SUBCUT Q7D 0RF levocetirizine [Xyzal] 5 mg tablet 5 mg PO DAILY 0RF metformin 500 mg tablet 500 mg PO BID 0RF hydrocodone-acetaminophen 10-325 mg tablet 1 tab PO .5 times a day PRN (Reason: pain) 30 Days Qty: 150 0RF Rx Instructions: fill on or after 10/21/21 famotidine 40 mg tablet 40 mg PO DAILY Qty: 90 0RF Rx Instructions: refill request spironolactone 50 mg tablet 50 mg PO BID Qty: 60 0RF Rx Instructions: need apt for refills Kevzara 200 mg/1.14 mL pen injector 200 mg SUBCUT .[id number] Qty: 2.28 3RF amlodipine 5 mg tablet 5 mg PO DAILY 0RF diclofenac sodium 1 % gel 4 g TOPICAL QID PRN (Reason: Pain) 0RF Rx Instructions: apply lumbar region Discharge Orders: Discharge Order (Routine); Ordered 02/06/22 Ordered By: Pola Macias Referrals: Nir Paulson [Primary Care Provider] - 4-7 days Pola Macias DO [Physician] - 2 weeks Discharge Diet: Advance as tolerated Discharge Activity: Resume usual activity Patient Instructions: Opioid Safety Activity Restrictions/Additional Instructions: No lifting, pushing or pulling over 15 lbs for 6 weeks. Do not soak incisions under water for 2 weeks. Shower daily. Discharge Attestations Time Spent in Discharge Care*: less than 30 min Quality Metrics Clinical Quality Measures [ No reported AMI, CVA or VTE this stay] Coding Level of Care Code Acute Chg [facility] note Diagnoses Incarcerated incisional hernia K43.0 Small bowel obstruction K56.609
--- NOTE | 2022-02-09 17:23 | P.OP_ITS ---
Operative Report Date of procedure: February 05, 2022 Pre-op diagnosis: Incarcerated recurrent incisional hernia Post-op diagnosis: same Procedure done: Laparoscopic repair of incarcerated recurrent incisional hernia with mesh Specimens removed/disposition: none Surgeon: Dr. Pola Macias DO Estimated blood loss: 5 Complications: none apparent Brief History: 51 year old female with a recurrent incarcerated incisional hernia and resulting small bowel obstruction. Laparoscopic repair with mesh is indicated. Risks were explained and documented. Procedure: Patient was wheeled into the operative room and placed on the OR table in a supine position. Abdomen was inspected prepped and draped in usual sterile fash ion. Time-out was performed and all present were in agreement. A 15 blade scalp was used to make a 5 millimeter incision left upper quadrant. A Veress needle was placed into the incision and intra-abdominal insufflation was brought to 15 millimeters of mercury. A 2nd 5 millimeter trocar was placed into the left lower quadrant. The energy but device was then used to cut out the hernia sac. An 11.4 centimeter mesh was placed into the abdomen and brought up through the umbilicus using an 0 Vicryl suture. The mesh was then tacked in place in a double crown fashion. The hernia sac was then removed from the abdomen via an endobag at the left lower quadrant. The 0 Vicryl suture was removed from the mesh. The left lower quadrant port site was closed with an 0 Vicryl suture in a Alexsander-Suzanne in a lnquua-mb-xwurr fashion. Incisions were closed with 4 O Vicryl in a subcuticular interrupted fashion. Skin glue was applied. A dressing that included cotton balls and a Tegaderm was placed over the umbilicus. Patient tolerated the procedure well.
== END 2022-02-06 17:28 | disposition home or self-care (01) ==
LOC: ER 10:22 → MEDSURG 19:23
PROVIDERS: Emergency Medicine; Admitting Provider Surgery; Emergency Provider Student in an Organized Health Care Education/Training Program; PCP Family Medicine; Visit Provider Surgery
PROC: 0WQF4ZZ Repair Abdominal Wall, Percutaneous Endoscopic Approach (ICD-10-PCS; CPT 49657; principal; 2022-02-05 12:45)
DX: K43.0 Incisional hernia with obstruction, without gangrene (principal); K56.609 Unspecified intestinal obstruction, unspecified as to partial versus complete obstruction; I10 Essential (primary) hypertension; J45.909 Unspecified asthma, uncomplicated; M06.9 Rheumatoid arthritis, unspecified; Z79.52 Long term (current) use of systemic steroids; Z79.899 Other long term (current) drug therapy; Z90.49 Acquired absence of other specified parts of digestive tract
CPT/HCPCS: 49657; 36415; 71045; 74177; 80048; 80053; 83605; 83690; 83735; 84100; 85025; 93005; 96365; 96372; 96375; 96376; 99285; C9113; G0378; J1100; J1170; J1644; J1720; J2001; J2250; J2270; J2370; J2405; J2543; J2704; J3010; J3490; J7030; Q9967

== ENCOUNTER → 2022-02-20 08:20 | Outpatient (BNVA) | payer MEDICAID, SELFPAY | PROVIDERS: PCP Family Medicine; Visit Provider Surgery | DX: Z98.890 Other specified postprocedural states (principal) | CPT/HCPCS: 99024 ==

== ENCOUNTER → 2022-12-03 09:48 | Outpatient (BNVA) | payer MEDICAID, SELFPAY | PROVIDERS: PCP Family Medicine; Visit Provider Internal Medicine Rheumatology | DX: M06.041 Rheumatoid arthritis without rheumatoid factor, right hand (principal); M06.042 Rheumatoid arthritis without rheumatoid factor, left hand; Z79.899 Other long term (current) drug therapy; M06.00 Rheumatoid arthritis without rheumatoid factor, unspecified site; M19.90 Unspecified osteoarthritis, unspecified site | CPT/HCPCS: 36415; 80076; 82565; 85025; 86140; 96372; 99214; J1030 ==

== ENCOUNTER → 2023-01-11 14:35 | Outpatient (BNVA) | payer MEDICAID, SELFPAY | PROVIDERS: PCP Family Medicine; Visit Provider Internal Medicine Rheumatology | DX: M06.00 Rheumatoid arthritis without rheumatoid factor, unspecified site (principal); Z79.899 Other long term (current) drug therapy | CPT/HCPCS: 20605; J1030 ==

== ENCOUNTER → 2023-03-10 09:35 | Outpatient (BNVA) | payer MEDICAID, SELFPAY | PROVIDERS: PCP Family Medicine; Visit Provider Internal Medicine Rheumatology | DX: M06.041 Rheumatoid arthritis without rheumatoid factor, right hand (principal); M06.042 Rheumatoid arthritis without rheumatoid factor, left hand; Z79.899 Other long term (current) drug therapy | CPT/HCPCS: 36415; 80076; 82565; 85025; 86140; 96372; 99214 ==

== ENCOUNTER 2023-03-19 17:21 | Emergency (ER) | payer MEDICAID, SELFPAY ==
[2023-03-19 17:34] VITALS: BP 209/95; PULSE 99; RESP 16; TEMP 36.8; O2SAT 99; BMI 33.6
--- NOTE | 2023-03-19 18:14 | XRR_ITS ---
PROCEDURE INFORMATION: Exam: XR Left Tibia and Fibula Exam date and time: 03/19/2023 6:26 PM Age: 53 years old Clinical indication: Injury or trauma; Fall; Blunt trauma; Lower leg; Left; Additional info: Fall injury, PT states most of her pain in anterior left lower leg TECHNIQUE: Imaging protocol: Radiologic exam of the left tibia and fibula. Views: 2 views. COMPARISON: No relevant prior studies available. FINDINGS: Bones/joints: Tibia and fibula are intact. Negative for fracture. Soft tissues: Focal soft tissue swelling/hematoma along the proximal anterior mabry. XR/XR tibia fibula LT 2V [id number] IMPRESSION: 1. No acute osseous abnormalities. 2. Soft tissue swelling/hematoma along the proximal anterior mabry.
--- NOTE | 2023-03-19 18:14 | XRR_ITS ---
PROCEDURE INFORMATION: Exam: XR Left Knee Exam date and time: 03/19/2023 6:26 PM Age: 53 years old Clinical indication: Injury or trauma; Fall; Blunt trauma; Lower leg; Left; Additional info: Fall, injury, no sunrise view TECHNIQUE: Imaging protocol: Radiologic exam of the left knee. Views: 1 or 2 views. COMPARISON: No relevant prior studies available. FINDINGS: Bones/joints: Osseous structures are intact. Negative for fracture. Mild DJD centered in the medial compartment. Soft tissues: Soft tissue swelling along the proximal anterior mabry. XR/XR knee LT 1-2V [id number] IMPRESSION: 1. No acute osseous abnormalities. 2. Soft tissue swelling along the proximal anterior mabry.
--- NOTE | 2023-03-19 18:14 | XRR_ITS ---
PROCEDURE INFORMATION: Exam: XR Right Shoulder Exam date and time: 03/19/2023 6:26 PM Age: 53 years old Clinical indication: Injury or trauma; Fall; Blunt trauma (contusions or hematomas); Shoulder; Right; Additional info: Fall, injury TECHNIQUE: Imaging protocol: Radiologic exam of the right shoulder. Views: 2 or more views. COMPARISON: CR XR chest 1V [id number] 02/05/2022 8:56 AM FINDINGS: Bones/joints: Osseous structures are intact. Negative for fracture or dislocation. Soft tissues: Normal. XR/XR shoulder RT min 2V* [id number] IMPRESSION: No acute findings.
--- NOTE | 2023-03-19 18:16 | W.ED.EXTPRO ---
HPI - Extremity Problem General: Chief complaint: Extremity Injury, Lower Stated complaint: Fell, Leg injury Time Seen by Provider: 03/19/23 18:05 History of Present Illness: Leonie Smith is a 53-year-old [id number] female that presents to the emergency department with complaints of left knee pain, left tibia pain, right shoulder pain. Patient states that she tripped and fell at 1400 today. She denies striking her head or loss of consciousness. She reports that she was able to get up and ambulate without difficulty but had increasing pain since 1400. Primarily, she is complaining of left lower extremity pain. She has a large hematoma noted to anterior tibia She has been icing the extremity. She is also taken a Rudd. Patient does report some low back muscle spasm. She states she is status post lumbar fusion within the last 12 months. Associated symptoms: Deny chest pain, fever(s) or rash Review of Systems General: Reports: 10 or more systems reviewed and unremarkable except in HPI and below Const: Denies: fever(s), chills, change in appetite, change in weight, fatigue or malaise Eyes: Denies: change in vision, eye discomfort, eye discharge or eye redness ENMT: Denies: throat pain, enlarged tonsils, odynophagia, hoarseness, ear or mastoid pain, ear discharge, change in hearing, tinnitus, nasal discharge, nasal congestion, post nasal drip or sinus pain Card: Denies: chest pain, palpitations, irregular heart rhythm, edema, dyspnea on exertion, orthopnea or leg pain with exertion Resp: Denies: dyspnea, productive cough, non-productive cough, wheezing, stridor or chest congestion GI: Denies: abdominal pain, nausea, vomiting, dysphagia, diarrhea, constipation, bloating, GI cramping or hematochezia : Denies: flank pain, difficulty voiding, dysuria, urinary frequency, urinary urgency, urinary hesitancy, oliguria or hematuria Musc: Reports: back pain, extremity pain and joint pain; Denies: neck pain, joint swelling, joint redness, joint warmth or muscle weakness Skin/Breast: Denies: rash, pruritus, erythema, photosensitivity or new lesions Neuro: Denies: headache(s), numbness in extremities, weakness in extremities, sensory changes, lack of coordination, difficulty walking, frequent falls, dizziness, confusion, Slurred speech present, difficulty communicating thoughts, seizure-like activity or involuntary movements Endo: Denies: polyuria, polydipsia or tired all the time Nile/Lymph: Denies: easy bruising or easy bleeding PFSH ED PFSH: Medical History Anxiety state Back pain, lumbosacral Cholecystectomy planned Cystocele Encounter for long-term use of opiate analgesic High risk medication use Hx of diverticulitis of colon Hypogammaglobulinemia Immunization counseling Immunosuppression Opioid contract exists Rectocele Recurrent infections Rheumatoid arthritis with negative rheumatoid factor Seronegative rheumatoid arthritis Seronegative rheumatoid arthritis of both hands Surgical History H/O arthroscopic knee surgery H/O section H/O dilation and curettage H/O hernia repair H/O left knee surgery ACL right History of colon resection S/P hernia repair Laparoscopic Incisional Hernia Repair 02/05/22 Family History Other CAD (coronary artery disease) Diabetes Hypertension Psychiatric illness Rheumatoid arthritis Systemic lupus erythematosus, unspecified Denies family history of Anesthesia complication Bleeding disorder Social History Smoking and tobacco status: never smoked Second hand smoke exposure: No Alcohol intake: former Substance/Drug Use: never Physical Exam Const: COMMON NORMALS: no acute distress, patient oriented x3 and alert GENERAL APPEARANCE: cooperative ORIENTATION/CONSCIOUSNESS: Yes awake, Yes oriented to person, Yes oriented to place and Yes oriented to time HENMT: COMMON NORMALS: normocephalic and atraumatic HEAD & SCALP: normocephalic and atraumatic FACE & SINUS: normal facial exam MOUTH: Normal oral and palatal mucosa present THROAT: posterior oropharynx normal Eye: COMMON NORMALS: Equal, round and reactive pupils present, EOMs intact bilaterally, conjunctivae normal and no scleral icterus GENERAL EYE: appearance normal, both eyes and all related structures ALIGNMENT: Yes alignment normal PERIORBITAL: periorbital findings normal CONJUNCTIVA: Yes conjunctivae normal PUPIL: Yes Equal, round and reactive pupils present Neck/C-Spine: COMMON NORMALS: full ROM GENERAL: Yes normal visual inspection Lymph: LYMPHATIC: no lymphadenopathy noted Chest: COMMONS NORMALS: normal inspection of the chest Breast/axilla inspection: Yes no chest deformity, asymmetry, normal contours, no nodules, masses, tenderness Resp: COMMON NORMALS: normal respiratory effort, No retractions, No use of accessory muscles and clear to auscultation bilaterally EFFORT & INSPECTION: Yes able to speak in complete sentences and Yes symmetric chest movement AUSCULTATION: clear to auscultation bilaterally Cardio: COMMON NORMALS: regular rate, regular rhythm and Peripheral pulses 2+ throughout RATE: regular rate RHYTHM: regular rhythm PERIPHERAL PULSES: Peripheral pulses 2+ throughout GI: COMMON NORMALS: Normal to inspection, nondistended, normoactive bowel sounds present, Soft to palpation, non-tender and No hepatosplenomegaly present INSPECTION: Yes normal to inspection AUSCULTATION: Yes normoactive bowel sounds PALPATION: Yes Soft to palpation and Yes No hepatosplenomegaly present RECTAL EXAM: deferred Back/Pelvis: OTHER: Lumbar tightness Denies sensory changes in lower extremities 5/5 strength?hip flexor, quad, anterior tibialis in right lower extremity 4 -/5 strength hip flexor, quad, anterior tibialis and left lower extremity?this is limited due to pain. Sensation intact throughout lower extremities Extremity: COMMON NORMALS: normal to inspection GENERAL: Yes normal exam except as noted OTHER: Right upper extremity: Skin is clean dry and intact Ecchymosis in several stages of healing in the right hand and forearm Full active range of motion of shoulder, elbow Able to extend wrist, give a thumbs up, make an okay sign, cross fingers, abduct fingers and make a fist Sensation intact to light touch at axillary, radial, median, ulnar nerve distribution Radial pulses palpable and cap refills less than 3 seconds Left lower extremity: Skin is clean dry and intact Ecchymosis and edema to proximal aspect of the anterior tibia. Tissue is compressible in all compartments. Patient is able to flex and extend the knee although limited due to pain Patient is able to perform a straight leg raise Sensation intact to light touch at medial, lateral, dorsal, plantar surface of the foot and first webspace Posterior tibialis pulses palpable and cap refills less than 3 seconds Neuro: COMMON NORMALS: patient oriented x3 SENSORIUM/ORIENTATION: Yes alert, Yes oriented to person, Yes oriented to place and Yes oriented to time CRANIAL NERVES: Yes CN normal except as noted Psych: COMMON NORMALS: mental status grossly normal, Normal thought process present, cooperative, activity/motor behavior normal, denies homicidal ideation and denies suicidal ideation THOUGHT PROCESS: Normal thought process present Skin: COMMON NORMALS: no rashes or lesions noted, no wounds and turgor normal GENERAL SKIN EXAM: no rashes or lesions noted and turgor normal Course Vital Signs: Vital signs: Vital Signs Temperature 98.2 F 03/19/23 17:34 Pulse Rate 93 03/19/23 18:24 Respiratory Rate 16 03/19/23 18:24 Blood Pressure 177/108 03/19/23 18:24 Pulse Oximetry 96 03/19/23 18:24 Oxygen Delivery Me thod Room Air 03/19/23 17:34 MDM - Extremity (Nontraumatic) Medical Decision Making Differential diagnosis includes fracture, fracture dislocation, hardware failure, contusions, compartment syndrome. Patient underwent XR imaging of the shoulder, lumbar spine, tibia, and knee. Imaging reveals no acute fractures. I did treat her pain here in the emergency department with oxycodone. Minimal relief. Patient's compartments in the left lower extremity remain compressible and there is been no further extension of the hematoma while here. Patient and I discussed sequela of trauma and swelling. I have advised patient to use RICE as well as NSAIDs/topical NSAIDs, acetaminophen, and her newly prescribed hydrocodone. Patient was offered a CT as well as ultrasound to evaluate the hematoma but after discussion on utility, we opted to forego any further imaging. Well the right upper extremity/shoulder x-ray does not reveal any acute fractures or obvious separation of the AC joint, there is a chance she may have more severely injured the ligaments. Ultimately she will require an MRI but this is not available here. Patient was offered a sling but has declined. I am going to discharge her home with her . She is to return to the emergency department for new concerning or worsening symptoms. Follow-up with primary care. Lab Data Radiology Impressions Knee X-Ray 03/19/23 18:14 IMPRESSION: 1. No acute osseous abnormalities. 2. Soft tissue swelling along the proximal anterior mabry. Shoulder X-Ray 03/19/23 18:14 IMPRESSION: No acute findings. Tibia/Fibula X-Ray 03/19/23 18:14 IMPRESSION: 1. No acute osseous abnormalities. 2. Soft tissue swelling/hematoma along the proximal anterior mabry. Lumbar Spine X-Ray 03/19/23 18:20 IMPRESSION: No acute findings. Discharge Plan Discharge Patient Disposition: Home Clinical Impression: Multiple contusions, Sprain and strain, Acute lumbar myofascial strain Condition: Stable Prescriptions: No Action losartan 100 mg tablet 100 mg PO DAILY promethazine 25 mg tablet 25 mg PO Q6H PRN (Reason: Nausea) Premarin 0.625 mg/gram cream 0.625 mg VAGINAL .COMPLEX Rx Instructions: 0.625 mg vaginal PEA SIZE 2-3 TIMES PER WEEK; levalbuterol tartrate [Xopenex HFA] 45 mcg/actuation HFA aerosol inhaler 2 inh INHALATION Q4H PRN (Reason: Shortness Of Breath) Dulera 100-5 mcg/actuation HFA aerosol inhaler 2 puff INHALATION BID azelastine 137 mcg (0.1 %) aerosol,spray 1 spray INTRANASAL BID fluticasone propionate 50 mcg/actuation spray,suspension 1 spray INTRANASAL DAILY (DME) lancets [Micro Thin Lancets] 33 gauge misc See Rx Instructions .ROUTE .MEDSUPPLY Qty: 100 Rx Instructions: As directed ascorbic acid (vitamin C) 500 mg capsule 500 mg PO DAILY vitamin B complex Capsule 1 cap PO DAILY hydrocortisone 10 mg tablet 20 mg PO BID cholecalciferol (vitamin D3) 50 mcg (2,000 unit) capsule 50 mcg PO DAILY jaden root 1 tab PO DAILY immune globulin,gamma(IgG)klhw 10 gram/50 mL (20 %) solution 10 g SUBCUT Q7D levocetirizine [Xyzal] 5 mg tablet 5 mg PO DAILY metformin 500 mg tablet 500 mg PO BID hydrocodone-acetaminophen 10-325 mg tablet 1 tab PO .5 times a day PRN (Reason: pain) 30 Days Qty: 150 0RF Rx Instructions: fill on or after 10/21/21 famotidine 40 mg tablet 40 mg PO DAILY Qty: 90 1RF Rx Instructions: refill request spironolactone 50 mg tablet 50 mg PO BID Qty: 60 0RF Rx Instructions: need apt for refills prednisone 10 mg tablet 10 mg PO DAILY Qty: 90 1RF Rinvoq 15 mg tablet extended release 24 hr 15 mg PO DAILY Qty: 30 3RF amlodipine 5 mg tablet 5 mg PO DAILY diclofenac sodium 1 % gel 4 g TOPICAL QID PRN (Reason: Pain) Rx Instructions: apply lumbar region Discharge Orders: Discharge ED (Routine); Ordered 03/19/23 Ordered By: Yasmine Oliveros Referrals: Nir Paulson [Primary Care Provider] - Discharge Diet: Advance as tolerated Discharge Activity: Resume usual activity Patient Instructions: Contusion in Adults (ED), Opioid Safety, Pain Management Activity Restrictions/Additional Instructions: Use RICE?rest, ice, compression, elevation. Use Bryan wrap provided for compression You can trial Voltaren cream over the left leg to see if it helps with pain Take a multimodal approach to managing your pain. 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
--- NOTE | 2023-03-19 18:20 | XRR_ITS ---
PROCEDURE INFORMATION: Exam: XR Lumbosacral Spine Exam date and time: 03/19/2023 6:26 PM Age: 53 years old Clinical indication: Injury or trauma; Fall; Blunt trauma (contusions or hematomas); Additional info: Fall, lower back fusion done in August TECHNIQUE: Imaging protocol: Radiologic exam of the lumbosacral spine. Views: 2 or 3 views. COMPARISON: CR XR lumbar spine 2-3V* [id number] 05/19/2016 12:25 PM FINDINGS: Bones/joints: Intact posterior spinal fusion hardware at the L4-S1 segment with intervertebral disc spacers. No acute fracture. Normal alignment. Soft tissues: Unremarkable. XR/XR lumbar spine 2-3V* [id number] IMPRESSION: No acute findings.
[2023-03-19 18:23] VITALS: RESP 16
[2023-03-19] MEDS: oxyCODONE-APAP 5-325 mg Tablet 1 TAB PO (18:23)
[2023-03-19 18:24] VITALS: BP 177/108; PULSE 93; RESP 16; O2SAT 96
== END 2023-03-19 20:31 | disposition home or self-care (01) ==
PROVIDERS: Emergency Provider Nurse Practitioner; PCP Family Medicine
DX: S39.012A Strain of muscle, fascia and tendon of lower back, initial encounter (principal); S60.221A Contusion of right hand, initial encounter; S50.11XA Contusion of right forearm, initial encounter; S80.12XA Contusion of left lower leg, initial encounter; M06.042 Rheumatoid arthritis without rheumatoid factor, left hand; M06.041 Rheumatoid arthritis without rheumatoid factor, right hand; Z79.899 Other long term (current) drug therapy; W01.0XXA Fall on same level from slipping, tripping and stumbling without subsequent striking against object, initial encounter; Z98.1 Arthrodesis status
CPT/HCPCS: 72100; 73030; 73560; 73590; 99283

== ENCOUNTER → 2023-06-14 15:58 | Outpatient (BNVA) | payer MEDICAID, SELFPAY | PROVIDERS: PCP Family Medicine; Visit Provider Specialist | DX: R26.9 Unspecified abnormalities of gait and mobility (principal); G62.9 Polyneuropathy, unspecified; G95.9 Disease of spinal cord, unspecified; M06.9 Rheumatoid arthritis, unspecified; Z91.81 History of falling | CPT/HCPCS: 99205 ==

== ENCOUNTER 2023-07-13 15:21 | Outpatient (CLI) | payer MEDICAID, SELFPAY ==
--- NOTE | 2023-07-13 15:15 | MR_ITS ---
WS: [id number] MRI CERVICAL SPINE NONCONTRAST TECHNIQUE: Sagittal T1, T2 and STIR imaging. Axial T2, gradient, and fiesta imaging. CLINICAL INFORMATION: R29.90 - Unspecified symptoms and signs involving the ner... COMPARISON: None. FINDINGS: Straightening of the normal cervical doses. Slight anterolisthesis C3 on C4. Disc osteophyte protrusi on C5-C6. C2-C3: Mild facet arthropathy. Mild LEFT and no significant RIGHT foraminal narrowing. Spinal canal i s patent. C3-C4: Slight anterolisthesis. Moderate facet arthropathy. The spinal canal and foramen are patent. C4-C5: Mild disc osteophytic ridging. Moderate facet arthropathy. Mild LEFT and no significant RIGHT foraminal narrowing. C5-C6: Disc osteophyte complex with a RIGHT paracentral disc osteophyte protrusion. Mild central daniel l stenosis. Slight contact of the RIGHT ventral cervical cord. Severe RIGHT and moderate LEFT bony fo raminal narrowing. Moderate facet arthropathy. C6-C7: Mild LEFT and no significant RIGHT foraminal narrowing. Spinal canal is patent. C7-T1: Spinal canal and foramen are patent. Visualized brain stem structures: Normal. Prevertebral soft tissues: Normal. IMPRESSION: 1. Straightening of the normal cervical lordosis with slight anterolisthesis C3 on C4 and C4 on C5. 2. Disc osteophyte protrusion C5-C6 with slight contact of the RIGHT ventral cervical cord and mild central canal stenosis. 3. Severe RIGHT and moderate LEFT bony foraminal narrowing at C5-C6. 4. Moderate facet arthropathy C3-C4 C4-C5 and C5-C6.
--- NOTE | 2023-07-13 16:00 | MR_ITS ---
WS: [id number] MRI LUMBAR SPINE WITH CONTRAST TECHNIQUE: Sagittal T1, T2 and STIR imaging. Axial T1 and T2 imaging. Post gadolinium imaging was obt ained. CLINICAL INFORMATION: M54.5 - Low back pain COMPARISON: None. FINDINGS: Mild lumbar curve. No acute compression. Prior pedicle screw fixation L4-S1 with interbody fusion gra fts. Slight anterolisthesis L4 on L5. Slight retrolisthesis L1 on L2 and L2 on L3. L1-L2: Mild annular bulging with slight effacement of the ventral thecal sac. Slight retrolisthesis. Narrowing of the subarticular recess bilaterally LEFT greater than RIGHT. Mild facet arthropathy. Mil d LEFT greater than RIGHT foraminal narrowing. L2-L3: Slight retrolisthesis. Mild annular bulging with slight effacement of the ventral thecal sac. Mild facet arthropathy. Small RIGHT foraminal protrusion with mild RIGHT greater than LEFT foraminal narrowing. L3-L4: Slight anterolisthesis. Moderate facet arthropathy. Mild LEFT greater than RIGHT foraminal clifford rowing. L4-L5: Pedicle screw fixation with interbody fusion. Spinal canal and foramen are patent. Laminectomy defects. L5-S1: Pedicle screw fixation. Mild RIGHT bony foraminal narrowing. Spinal canal and LEFT foramen are patent. Interbody fusion graft. Visualized pelvic bony structures: Normal. Paravertebral soft tissues: Normal. IMPRESSION: 1. Prior postoperative changes pedicle screw fixation L4-S1. Interbody fusion grafts and laminectomy defects. Spinal canal is patent. 2. Mild RIGHT L5-S1 bony foraminal narrowing. 3. Disc bulging L1-2 with narrowing of the subarticular recess bilaterally. Slight retrolisthesis. M ild LEFT foraminal narrowing with a small LEFT foraminal protrusion. 4. Slight retrolisthesis L2-L3 with mild annular bulging and narrowing of the subarticular recess bi laterally. Mild RIGHT L2-3 foraminal narrowing with a small RIGHT foraminal protrusion. 5. Small LEFT foraminal protrusion L3-4 slightly impinges the LEFT L3 nerve root.
== END 2023-07-13 15:22 | disposition home or self-care (01) ==
LOC: RAD 15:21
PROVIDERS: PCP Family Medicine; Visit Provider Specialist
DX: M51.36 Other intervertebral disc degeneration, lumbar region (principal); R29.90 Unspecified symptoms and signs involving the nervous system; Z98.1 Arthrodesis status; M48.07 Spinal stenosis, lumbosacral region; M43.16 Spondylolisthesis, lumbar region
CPT/HCPCS: 72141; 72158; A9577

== ENCOUNTER → 2023-07-29 09:42 | Outpatient (BNVA) | payer MEDICAID, SELFPAY | PROVIDERS: PCP Family Medicine; Visit Provider Specialist | DX: G62.89 Other specified polyneuropathies (principal) | CPT/HCPCS: 95908; 95910 ==

== ENCOUNTER → 2023-08-31 15:38 | Outpatient (BNVA) | payer MEDICAID, SELFPAY | PROVIDERS: PCP Family Medicine; Visit Provider Specialist | DX: M62.838 Other muscle spasm (principal); G95.9 Disease of spinal cord, unspecified; G62.89 Other specified polyneuropathies; M06.00 Rheumatoid arthritis without rheumatoid factor, unspecified site; D80.1 Nonfamilial hypogammaglobulinemia; R26.9 Unspecified abnormalities of gait and mobility; Z91.81 History of falling | CPT/HCPCS: 99215 ==

== ENCOUNTER → 2023-09-21 09:31 | Outpatient (BNVA) | payer MEDICAID, SELFPAY | PROVIDERS: PCP Family Medicine; Visit Provider Internal Medicine Rheumatology | DX: M06.041 Rheumatoid arthritis without rheumatoid factor, right hand (principal); M06.042 Rheumatoid arthritis without rheumatoid factor, left hand; Z79.899 Other long term (current) drug therapy; Z71.89 Other specified counseling; D80.1 Nonfamilial hypogammaglobulinemia | CPT/HCPCS: 36415; 80076; 82565; 85025; 86140; 99214 ==

== ENCOUNTER → 2023-10-14 08:31 | Outpatient (BNVA) | payer MEDICAID, SELFPAY | PROVIDERS: PCP Family Medicine; Visit Provider Specialist | DX: M62.838 Other muscle spasm (principal); R26.9 Unspecified abnormalities of gait and mobility | CPT/HCPCS: 64642; J0585 ==

== ENCOUNTER 2024-01-11 11:12 | Outpatient (CLI) | payer MEDICAID, SELFPAY ==
[2024-01-11 13:11] LABS: Basophils % 0.4 %; Eosinophils # 0.1 10^3/uL (0.0-0.8); Eosinophils % 0.7 %; Hematocrit 37.7 % (36-47); Lymphocytes # 1.6 10^3/uL (0.8-4.8); Mean Corpuscular HGB Conc 32.1 g/dL (30-55); Mean Corpuscular Hemoglobin 30.3 pg (27-33); Mean Corpuscular Volume 94.3 fl (85-98); Mean Platelet Volume 8.6 fL (7.4-10.4); Monocytes # 0.5 10^3/uL (0.2-0.9); Monocytes % 6.7 %; Neutrophils # 5.06 10^3/uL (1.8-7.7); Neutrophils % 69.8 %; Nucleated Red Blood Cells % 0 %; Platelet Count 318 10^3/cmm (157-399); Red Cell Distribution Width 13.7 % (12.1-15.1); White Blood Count 7.26 10^3/uL (3.29-11.43)
[2024-01-11 13:18] LABS: Erythrocyte Sedimentation Rate 5 mm/hr (0-15)
[2024-01-11 13:27] LABS: Alanine Aminotransferase 41 U/L (0-33); Albumin Level 4.2 g/dL (3.5-5.2); Alkaline Phosphatase 77 U/L (35-105); Aspartate Amino Transferase 32 U/L (0-32); Globulin 2.4 g/dL (1.3-4.6); Glomerular Filtration Rate 86.9 mL/min (90-130); Total Bilirubin 0.2 mg/dL (0.15-1.2); Total Protein 6.6 g/dL (6.6-8.7)
== END 2024-01-11 11:13 | disposition home or self-care (01) ==
LOC: LAB 11:13
PROVIDERS: PCP Family Medicine; Visit Provider Internal Medicine Rheumatology
DX: Z79.899 Other long term (current) drug therapy (principal); M06.00 Rheumatoid arthritis without rheumatoid factor, unspecified site
CPT/HCPCS: 36415; 80076; 82565; 85025; 85651; 86140; 99214; J1010

== ENCOUNTER 2024-01-13 13:17 | Outpatient (CLI) | payer MEDICAID, SELFPAY ==
--- NOTE | 2024-01-13 13:15 | USCV_ITS ---
Luis Cathi Age: 53 Gender: F : 1970 Exam Date: 01/13/2024 13:49 Ordering Phys: Rowan Romero MD Technologist: JUAN [place] [facility] [place] RLE PAIN AND SWELLING HISTORY: Lower extremity swelling. Lower extremity pain. PROCEDURES: Venous duplex imaging was performed in only the right lower extremity. The following venous structures were evaluated: common femoral vein, profunda vein, proximal portion of the greater saphenous vein, superficial femoral vein, and the popliteal vein. In addition, the posterior tibial and peroneal trunk were evaluated. Serial compression, augmentation maneuvers, and spectral Doppler flow evaluation were performed. FINDINGS: No evidence of DVT seen in any vessel visualized at this time. Edema seen in lower Right Leg CONCLUSIONS No DVT right lower extremity. Dr. Dinoar Craft DO (Electronically Signed) Final Date: 13 Jan 2024 15:17 S
== END 2024-01-13 13:18 | disposition home or self-care (01) ==
LOC: RAD 13:17
PROVIDERS: PCP Family Medicine; Visit Provider Specialist
DX: I82.401 Acute embolism and thrombosis of unspecified deep veins of right lower extremity (principal); M79.604 Pain in right leg; M62.838 Other muscle spasm; R22.41 Localized swelling, mass and lump, right lower limb; G95.9 Disease of spinal cord, unspecified; R26.9 Unspecified abnormalities of gait and mobility; R60.0 Localized edema
CPT/HCPCS: 64642; 93971; 99213; J0585

== ENCOUNTER → 2024-03-29 15:00 | Outpatient (BNVA) | payer MEDICAID, SELFPAY | PROVIDERS: PCP Family Medicine; Visit Provider Internal Medicine Rheumatology | DX: M06.041 Rheumatoid arthritis without rheumatoid factor, right hand (principal); M06.042 Rheumatoid arthritis without rheumatoid factor, left hand; Z71.89 Other specified counseling | CPT/HCPCS: 96372 ==

== ENCOUNTER → 2024-04-04 11:48 | Outpatient (BNVA) | payer MEDICAID, SELFPAY | PROVIDERS: PCP Family Medicine; Visit Provider Internal Medicine Rheumatology | DX: M06.041 Rheumatoid arthritis without rheumatoid factor, right hand (principal); M06.042 Rheumatoid arthritis without rheumatoid factor, left hand; D80.1 Nonfamilial hypogammaglobulinemia; M17.0 Bilateral primary osteoarthritis of knee; M92.72 Juvenile osteochondrosis of metatarsus, left foot; M47.816 Spondylosis without myelopathy or radiculopathy, lumbar region; M47.814 Spondylosis without myelopathy or radiculopathy, thoracic region; Z79.899 Other long term (current) drug therapy; Z71.85 Encounter for immunization safety counseling | CPT/HCPCS: 36415; 80076; 82565; 85025; 85651; 86140; 86480; 86803; 87340; 99214 ==

== ENCOUNTER 2024-04-17 10:43 | Oncology outpatient (recurring) (ONCR) | payer MEDICAID, SELFPAY ==
[2024-04-17] VITALS (9 sets, daily range): BP systolic 125–160; BP diastolic 78–86; PULSE 74–91; RESP 16–18; TEMP 35.9–36.4; O2SAT 96–100
--- NOTE | 2024-04-17 11:27 | PC.NURSE ---
patient reports that she has already taken 650mg PO of tylenol at home prior to arrival.
[2024-04-17] MEDS: sodium chloride 0.9% 250 ML 75 ML IV (11:32)
[2024-04-17] MEDS: methylPREDNISolone sod succ 40 mg/mL INJ IVP (11:34)
[2024-04-17] MEDS: diphenhydrAMINE 50 mg/mL SDV 1mL 25 MG IVP (11:36)
[2024-04-17] MEDS: infliximab-abda 500 MG in sodium chloride 0.9% 250 ML 10 MG IV (12:10)
== END 2024-04-22 23:59 | disposition home or self-care (01) ==
PROVIDERS: PCP Family Medicine; Visit Provider Internal Medicine Rheumatology
DX: M06.042 Rheumatoid arthritis without rheumatoid factor, left hand (principal); M06.041 Rheumatoid arthritis without rheumatoid factor, right hand; Z79.899 Other long term (current) drug therapy
CPT/HCPCS: 96375; 96413; 96415; A4222; J1200; J2919; J7050; Q5104

== ENCOUNTER → 2024-04-27 09:15 | Outpatient (BNVA) | payer MEDICAID, SELFPAY | PROVIDERS: PCP Family Medicine; Visit Provider Specialist | DX: R60.0 Localized edema (principal); G95.9 Disease of spinal cord, unspecified; M62.838 Other muscle spasm; R26.9 Unspecified abnormalities of gait and mobility | CPT/HCPCS: 64642; J0585 ==

== ENCOUNTER 2024-05-01 11:07 | Oncology outpatient (recurring) (ONCR) | payer MEDICAID, SELFPAY ==
[2024-05-01] VITALS (8 sets, daily range): BP systolic 133–164; BP diastolic 80–95; PULSE 74–97; RESP 16; TEMP 35.9–36.3; O2SAT 93–99
--- NOTE | 2024-05-01 11:19 | PC.NURSE ---
Pre-medications 05/01/24 Patient stated she took Tylenol 1000mg PO at 0700. Patient refused Tylenol 650mg PO prior to Infliximab today.
[2024-05-01] MEDS: diphenhydrAMINE 50 mg/mL SDV 1mL 25 MG IVP (11:26)
[2024-05-01] MEDS: sodium chloride 0.9% 250 ML 75 ML IV (11:26)
[2024-05-01] MEDS: methylPREDNISolone sod succ 40 mg/mL INJ IVP (11:27)
[2024-05-01] MEDS: infliximab-abda 500 MG in sodium chloride 0.9% 250 ML 10 MG IV (12:10)
== END 2024-05-22 23:59 | disposition home or self-care (01) ==
PROVIDERS: PCP Family Medicine; Visit Provider Internal Medicine Rheumatology
DX: Z79.899 Other long term (current) drug therapy (principal); M06.042 Rheumatoid arthritis without rheumatoid factor, left hand; M06.041 Rheumatoid arthritis without rheumatoid factor, right hand
CPT/HCPCS: 96375; 96413; 96415; A4222; J1200; J2919; J7050; Q5104

== ENCOUNTER 2024-05-31 11:05 | Oncology outpatient (recurring) (ONCR) | payer MEDICAID, SELFPAY ==
[2024-05-31] VITALS (10 sets, daily range): BP systolic 125–151; BP diastolic 79–90; PULSE 78–95; RESP 16–17; TEMP 35.9–36.7; O2SAT 98–99
[2024-05-31] MEDS: sodium chloride 0.9% 250 ML 75 ML IV (11:34)
[2024-05-31] MEDS: methylPREDNISolone sod succ 40 mg/mL INJ IVP (11:36)
[2024-05-31] MEDS: acetaminophen 325 mg Tablet 650 MG PO (11:36)
[2024-05-31] MEDS: diphenhydrAMINE 50 mg/mL SDV 1mL 25 MG IVP (11:38)
[2024-05-31] MEDS: infliximab-abda 500 MG in sodium chloride 0.9% 250 ML 10 MG IV (12:10)
--- NOTE | 2024-05-31 16:37 | PC.NURSE ---
Dr. Lyons notified of no change in patient condition or change in viatlm signs. Patient family took her to ER to be evaluated per <D suggestions via wheelchair.
== END 2024-06-22 23:59 | disposition home or self-care (01) ==
PROVIDERS: PCP Family Medicine; Visit Provider Internal Medicine Rheumatology
DX: M06.042 Rheumatoid arthritis without rheumatoid factor, left hand (principal); M06.041 Rheumatoid arthritis without rheumatoid factor, right hand; Z79.899 Other long term (current) drug therapy
CPT/HCPCS: 96375; 96413; 96415; A4222; J1200; J2919; J7050; Q5104

== ENCOUNTER 2024-05-31 16:32 | Emergency (ER) | payer MEDICAID, SELFPAY ==
[2024-05-31 16:38] VITALS: BP 159/95; PULSE 102; RESP 18; TEMP 37; O2SAT 100; BMI 32.7
--- NOTE | 2024-05-31 17:23 | PC.NURSE ---
pt family presented to registrations desk with c/o increased difficulty breathing, this nurse placed pt in VF on pulse ox & b/p monitor, currently no open rooms in back. pt states she used personal inhaler, oxygen sat currently 97% on room air. pt states lungs feel weird but denies throat tightness
--- NOTE | 2024-05-31 17:30 | ED_ITS ---
HPI - Allergic Reaction General: Chief complaint: Allergic Reaction Stated complaint: allergic reation Time Seen by Provider: 05/31/24 17:22 Source: patient Mode of arrival: ambulatory Limitations: no limitations History of Present Illness: HPI narrative: Patient is a 54-year-old female here in the emergency department for evaluation of a possible allergic reaction. She was reportedly sent over from the infusion center. She was receiving her third dose of Remicade for her rheumatoid arthritis. Patient states she had no previous reactions to her previous 2 doses however she does have a longstanding history of allergic reactions to several other different medications including other DMARDs. Patient states she was receiving her infusion when she stood up and immediately got dizzy and lightheaded and felt like her vision was blurry. She states she sat back down and symptoms did improve but now she feels jittery on the inside . She does not having any lip or tongue swelling. No difficulty breathing or trouble swallowing. She arrives no acute distress. No abdominal pain, vomiting, or diarrhea. No rash or pruritus. MD complaint: allergic reaction Onset (ago): hour(s) Exposure: medication Associated symptoms: Reports dizziness (improved); Deny abdominal pain, nausea or vomiting Severity: mild Treatment prior to arrival: none Previous Allergic Reaction History: other Related Data Home Medications Medication Instructions Recorded Confirmed conjugated estrogens 0.625 mg/gram 0.625 mg vaginal .COMPLEX 10/03/19 04/27/24 vaginal cream (Premarin) losartan 100 mg tablet 100 mg PO DAILY 10/03/19 04/27/24 promethazine 25 mg tablet 25 mg PO Q6H PRN Nausea 10/03/19 04/27/24 fluticasone propionate 50 1 spray intranasal DAILY 11/08/19 04/27/24 mcg/actuation nasal spray,suspension levalbuterol tartrate 45 2 inh inhalation Q4H PRN Shortness 11/08/19 04/27/24 mcg/actuation aerosol inhaler Of Breath (Xopenex HFA) mometasone-formoterol HFA 100 2 puff inhalation BID 11/08/19 04/27/24 mcg-5 mcg/actuation aerosol inhaler (Dulera) lancets 33 gauge (Micro Thin #100 ea 11/09/19 04/27/24 Lancets) azelastine 137 mcg (0.1 %) nasal 1 spray intranasal BID 11/29/19 04/27/24 spray ascorbic acid (vitamin C) 500 mg 500 mg PO DAILY 01/25/20 04/27/24 capsule vitamin B complex 1 cap PO DAILY 01/25/20 04/27/24 jaden root 1 tab PO DAILY 04/24/20 04/27/24 cholecalciferol (vitamin D3) 50 50 mcg PO DAILY 06/17/20 04/27/24 mcg (2,000 unit) capsule hydrocortisone 10 mg tablet 20 mg PO BID 01/07/21 04/27/24 immune globulin,gamma(IgG)klhw 10 10 g SUBCUT Q7D 04/15/21 04/27/24 gram/50 mL(20%)subcut solution levocetirizine 5 mg tablet (Xyzal) 5 mg PO DAILY 06/17/21 04/27/24 metformin 500 mg tablet 500 mg PO BID 06/17/21 04/27/24 amlodipine 5 mg tablet 5 mg PO DAILY 02/05/22 04/27/24 diclofenac sodium 1 % topical gel 4 g topical QID PRN Pain 02/05/22 04/27/24 azithromycin 250 mg tablet ea PO 06/14/23 04/27/24 methocarbamol 750 mg tablet ea PO 06/14/23 04/27/24 acetaminophen 500 mg capsule 500 mg PO BID 09/21/23 04/27/24 Previous Rx's Medication Instructions Recorded spironolactone 50 mg tablet 50 mg PO BID #60 tabs 07/26/20 hydrocodone 10 mg-acetaminophen 1 tab PO .5 times a day PRN pain 09/11/21 325 mg tablet 30 days #150 tabs famotidine 40 mg tablet 40 mg PO DAILY #90 tabs 01/11/24 prednisone 5 mg tablet 5 mg PO DAILY #90 tabs 04/04/24 Allergies Allergy/AdvReac Type Severity Reaction Status Date / Time gabapentin Allergy unknown Verified 04/27/24 09:43 albuterol AdvReac Unknown RASH, Verified 04/27/24 09:43 BLISTERS TO FACE AND HTN certolizumab pegol AdvReac Unknown SWELLING Verified 04/27/24 09:43 [From Cimzia] etanercept [From Enbrel] AdvReac Unknown UNKNOWN Verified 04/27/24 09:43 hydralazine AdvReac Unknown HEADACHE/HT Verified 04/27/24 09:43 N/FLUSHING lisinopril AdvReac Unknown Unknown Verified 04/27/24 09:43 Review of Systems Const: Reports: other (states she feels jittery on the inside ); Denies: fever(s), chills, body aches, fatigue or malaise Eyes: Reports: change in vision (resolved); Denies: blurry vision, photophobia, floaters or seeing flashes ENMT: Denies: throat pain or odynophagia Card: Reports: lightheadedness (improved); Denies: chest pain, palpitations, irregular heart rhythm, edema, syncope, pre- syncope or dyspnea on exertion Resp: Denies: dyspnea GI: Denies: abdominal pain, nausea, vomiting or diarrhea Musc: Denies: neck pain, back pain, extremity pain, extremity swelling, joint pain or joint swelling Skin/Breast: Denies: rash Neuro: Reports: dizziness (improved); Denies: headache(s), numbness in extremities, weakness in extremities, sensory changes, confusion or behavioral changes PFSH ED PFSH: Medical History Hypogammaglobulinemia Seronegative rheumatoid arthritis of both hands Hx of diverticulitis of colon Recurrent infections Cholecystectomy planned Anxiety state Immunization counseling Rheumatoid arthritis with negative rheumatoid factor High risk medication use Immunosuppression Seronegative rheumatoid arthritis Opioid contract exists Encounter for long-term use of opiate analgesic Back pain, lumbosacral Cystocele Rectocele Surgical History S/P hernia repair Laparoscopic Incisional Hernia Repair 02/05/22 H/O left knee surgery ACL right H/O dilation and curettage H/O section H/O hernia repair H/O arthroscopic knee surgery History of colon resection Family History Other CAD (coronary artery disease) Diabetes Hypertension Lupus (systemic lupus erythematosus) Psychiatric illness Rheumatoid arthritis Denies family history of Anesthesia complication Bleeding disorder Social History Smoking and tobacco/nicotine status: never used tobacco/nicotine Second hand smoke exposure: No Alcohol intake: former Substance/Drug Use: never Course Vital Signs: Vital signs: Vital Signs Temperature 98.6 F 05/31/24 16:38 Pulse Rate 93 05/31/24 17:53 Respiratory Rate 16 05/31/24 17:53 Blood Pressure 145/87 05/31/24 17:53 Pulse Oximetry 100 05/31/24 17:53 Oxygen Delivery Me thod Room Air 05/31/24 17:39 MDM - Allergic Reaction Medical Decision Making No concerns for angioedema/anaphylactic reaction. Vital signs are stable. Patient has no acute neurologic deficits. NIHSS of 0. She was ambulatory here without difficulty or assistance. She is ready to go home. Given IV solu-medrol, benadryl, pepcid here. Return precautions given. Differential Diagnosis Likely allergic reaction and adverse reaction to drug Medical Records I reviewed the patient's medical records. No radiology studies performed this visit Discharge Plan Discharge Patient Disposition: Home Clinical Impression: Allergic reaction caused by a drug Qualifiers: Encounter type: initial encounter Qualified Code(s): T78.40XA - Allergy, unspecified, initial encounter Condition: Stable Prescriptions: No Action losartan 100 mg tablet 100 mg PO DAILY promethazine 25 mg tablet 25 mg PO Q6H PRN (Reason: Nausea) Premarin 0.625 mg/gram cream 0.625 mg VAGINAL .COMPLEX Rx Instructions: 0.625 mg vaginal PEA SIZE 2-3 TIMES PER WEEK; levalbuterol tartrate [Xopenex HFA] 45 mcg/actuation HFA aerosol inhaler 2 inh INHALATION Q4H PRN (Reason: Shortness Of Breath) Dulera 100-5 mcg/actuation HFA aerosol inhaler 2 puff INHALATION BID azelastine 137 mcg (0.1 %) aerosol,spray 1 spray INTRANASAL BID fluticasone propionate 50 mcg/actuation spray,suspension 1 spray INTRANASAL DAILY (DME) lancets [Micro Thin Lancets] 33 gauge misc See Rx Instructions .ROUTE .MEDSUPPLY Qty: 100 Rx Instructions: As directed ascorbic acid (vitamin C) 500 mg capsule 500 mg PO DAILY vitamin B complex Capsule 1 cap PO DAILY hydrocortisone 10 mg tablet 20 mg PO BID cholecalciferol (vitamin D3) 50 mcg (2,000 unit) capsule 50 mcg PO DAILY jaden root 1 tab PO DAILY immune globulin,gamma(IgG)klhw 10 gram/50 mL (20 %) solution 10 g SUBCUT Q7D levocetirizine [Xyzal] 5 mg tablet 5 mg PO DAILY metformin 500 mg tablet 500 mg PO BID hydrocodone-acetaminophen 10-325 mg tablet 1 tab PO .5 times a day PRN (Reason: pain) 30 Days Qty: 150 0RF Rx Instructions: fill on or after 10/21/21 acetaminophen 500 mg capsule 500 mg PO BID prednisone 5 mg tablet 5 mg PO DAILY Qty: 90 1RF methocarbamol 750 mg tablet PO azithromycin 250 mg tablet PO famotidine 40 mg tablet 40 mg PO DAILY Qty: 90 1RF Rx Instructions: refill request spironolactone 50 mg tablet 50 mg PO BID Qty: 60 0RF Rx Instructions: need apt for refills amlodipine 5 mg tablet 5 mg PO DAILY diclofenac sodium 1 % gel 4 g TOPICAL QID PRN (Reason: Pain) Rx Instructions: apply lumbar region Discharge Orders: Discharge ED (Routine); Ordered 05/31/24 Ordered By: Telma Argueta Referrals: Nir Paulson [Primary Care Provider] - Activity Restrictions/Additional Instructions: As we discussed, you may continue Benadryl at home every 4-6 hours as needed. 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 You may return to the emergency department immediately for onset of shortness of breath, difficulty breathing, any swelling to your lips or tongue, generally feeling worse or unwell, or any other concerns you may have. Hope you begin to feel better soon. Coding Level of Care Code ED [employer]or [employer] for Josh Hogan
--- NOTE | 2024-05-31 17:35 | ECG_ITS ---
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
[2024-05-31 17:39] VITALS: BP 138/80; PULSE 97; RESP 16; O2SAT 97
[2024-05-31] MEDS: sodium chloride 0.9% 1,000 ML 999 ML IV (17:44)
[2024-05-31] MEDS: famotidine 20 mg/2 mL INJ 40 MG IVP (17:46)
[2024-05-31] MEDS: diphenhydrAMINE 50 mg/mL SDV 1mL 25 MG IVP (17:47)
[2024-05-31] MEDS: methylPREDNISolone sod succ 125 mg/2 mL INJ 80 MG IVP (17:51)
[2024-05-31 17:53] VITALS: BP 145/87; PULSE 93; RESP 16; O2SAT 100
[2024-05-31 18:30] VITALS: BP 162/82; PULSE 113; RESP 20; O2SAT 99
--- NOTE | 2024-05-31 18:45 | PC.NURSE ---
Patient ambulated down the [place] to bathroom without difficulties. Pt states that she did feel a little out of breath. Vitals WNL. Sats upper 90s on RA.
[2024-05-31 19:02] VITALS: BP 152/89; PULSE 92; RESP 18; O2SAT 100
== END 2024-05-31 19:05 | disposition home or self-care (01) ==
PROVIDERS: Emergency Provider Physician Assistant; PCP Family Medicine
DX: R42 Dizziness and giddiness (principal); T39.4X5A Adverse effect of antirheumatics, not elsewhere classified, initial encounter; Z79.84 Long term (current) use of oral hypoglycemic drugs
CPT/HCPCS: 93005; 96361; 96374; 96375; 99284; J1200; J2919; J3490; J7030

== ENCOUNTER → 2024-08-04 09:15 | Outpatient (BNVA) | payer MEDICAID, SELFPAY | PROVIDERS: PCP Family Medicine; Visit Provider Specialist | DX: M62.838 Other muscle spasm (principal); G95.9 Disease of spinal cord, unspecified; R26.9 Unspecified abnormalities of gait and mobility; R60.0 Localized edema | CPT/HCPCS: 64642; J0585 ==

== ENCOUNTER → 2024-08-08 11:00 | Outpatient (BNVA) | payer MEDICAID, SELFPAY | PROVIDERS: PCP Family Medicine; Visit Provider Internal Medicine Rheumatology | DX: Z79.899 Other long term (current) drug therapy (principal); M06.00 Rheumatoid arthritis without rheumatoid factor, unspecified site; M06.041 Rheumatoid arthritis without rheumatoid factor, right hand; M06.042 Rheumatoid arthritis without rheumatoid factor, left hand; Z71.89 Other specified counseling; D80.1 Nonfamilial hypogammaglobulinemia; M17.0 Bilateral primary osteoarthritis of knee; M51.34 Other intervertebral disc degeneration, thoracic region; M51.369 Other intervertebral disc degeneration, lumbar region without mention of lumbar back pain or lower extremity pain | CPT/HCPCS: 36415; 80076; 82565; 85025; 85651; 86140; 99214 ==

== ENCOUNTER 2024-09-23 09:40 | Emergency (ER) | payer MEDICAID, SELFPAY ==
[2024-09-23 09:44] VITALS: BP 117/70; PULSE 95; RESP 16; TEMP 37.3; O2SAT 93; BMI 32.5
--- NOTE | 2024-09-23 10:04 | XRR_ITS ---
PROCEDURE INFORMATION: Exam: XR Chest Exam date and time: 09/23/2024 4:32 PM Age: 54 years old Clinical indication: Fever TECHNIQUE: Imaging protocol: Radiologic exam of the chest. Views: 1 view. COMPARISON: CR XR chest 1V [id number] 02/05/2022 8:56 AM FINDINGS: Limitations: Patient rotation. Lungs: No pulmonary consolidation. Pleural spaces: No pleural effusion or pneumothorax. Heart/Mediastinum: The cardiomediastinal silhouette is within normal limits. Bones/joints: No acute osseous abnormalities are seen. XR/XR chest 1V portable [id number] IMPRESSION: No acute cardiopulmonary disease.
[2024-09-23 11:14] LABS: Covid PCR NEGATIVE (Negative); Influenza A POSITIVE (Negative); Influenza B NEGATIVE (Negative); Respiratory Syncytial Virus Ce NEGATIVE (Negative)
[2024-09-23 11:39] LABS: Basophils % 0.2 %; Hematocrit 39.3 % (36-47); Lymphocytes # 0.4 10^3/uL (0.8-4.8); Lymphocytes % 3.3 %; Mean Corpuscular HGB Conc 32.1 g/dL (30-55); Mean Corpuscular Hemoglobin 29.2 pg (27-33); Mean Platelet Volume 8.3 fL (7.4-10.4); Monocytes # 0.4 10^3/uL (0.2-0.9); Monocytes % 3.4 %; Neutrophils # 9.93 10^3/uL (1.8-7.7); Neutrophils % 92.8 %; Nucleated Red Blood Cells % 0 %; Platelet Count 329 10^3/cmm (157-399); Red Blood Count 4.32 10^6/uL (3.85-5.65); Red Cell Distribution Width 14.6 % (12.1-15.1); White Blood Count 10.69 10^3/uL (3.29-11.43)
[2024-09-23 11:43] LABS: Erythrocyte Sedimentation Rate 37 mm/hr (0-15)
[2024-09-23 11:58] LABS: Alanine Aminotransferase 27 U/L (0-33); Albumin Level 3.8 g/dL (3.5-5.2); Alkaline Phosphatase 86 U/L (35-105); Anion Gap 17.8 (5-19); Aspartate Amino Transferase 21 U/L (0-32); Blood Urea Nitrogen 9 mg/dL (6-20); C Reactive Protein 52.1 mg/L (0.0-4.9); Calcium 9.2 mg/dL (8.5-10.5); Carbon Dioxide 25 mmol/L (22-29); Chloride 95 mmol/L (98-107); Creatinine Clr Calc Pharmacy 105.8233; Glomerular Filtration Rate 86.6 mL/min (90-130); Glucose 216 mg/dL (65-115); Osmolality Calculated 283 mOsm/kg (285-295); Potassium 3.8 mmol/L (3.5-5.1); Sodium 134 mmol/L (136-145); Total Bilirubin 0.2 mg/dL (0.15-1.2); Total Protein 6.8 g/dL (6.6-8.7)
[2024-09-23 11:59] LABS: Lactic Sepsis W/Reflex 3.2 mmol/L (0.5-2.2)
[2024-09-23 13:14] LABS: Reflex Lactate Order REFLEX LACTIC ORDERD
[2024-09-23 16:43] LABS: Bilirubin Urine Negative (Negative); Blood Urine Negative (Negative); Glucose Urine UA Negative (Normal); Ketones Urine Negative (Negative); Leukocyte Esterase Urine Negative (Negative); Nitrate Urine Negative (Negative); Protein Urine Negative (Negative); Specific Gravity, Urine 1.008 (1.005-1.030); Urine Appearance Clear (CLEAR); Urine Color Yellow (Yellow); Urobilinogen Urine 0.2 mg/dL (Negative); pH Urine 6.5 (5-7)
[2024-09-23 16:50] LABS: Bacteria Urine EXCEEDS /hpf; Hyaline Casts Urine 0-4 /lpf; RBC Urine 0-2 /hpf (0-2); Squamous Epithelial Cell Urine 0-5 /hpf (0-5); WBC Urine 0-5 /hpf (0-5)
[2024-09-23 16:56] VITALS: BP 155/93; PULSE 99; O2SAT 98
--- NOTE | 2024-09-23 17:05 | ED_ITS ---
Documented by User: Sloane Meza MD 09/23/24 17:37 HPI - Fever 2 General: Chief Complaint: Fever Stated Complaint: post op fever Time Seen by Provider: 09/23/24 11:52 History of Present Illness: Patient presents with diffuse body aches, shortness of breath, and cough that began morning following a spinal injection procedure performed on Wednesday. Patient received an injection near the tailbone area. Reports fever, dry nonproductive cough, and significant bone pain throughout the body. Patient notes increased use of rescue inhaler for asthma symptoms. Reports sore throat and post-nasal drainage. Patient tested positive for influenza during this visit, despite having had influenza approximately 3 months ago. Patient has not received flu vaccination this year. Reports poor oral intake over several days but maintains fluid intake, though possibly inadequate. The injection site is described as bruised and tender but without signs of infection such as redness or warmth. Constitutional: Positive for fever, body aches, and fatigue Respiratory: Positive for cough, shortness of breath, and increased rescue inhaler use ENT: Positive for sore throat and post-nasal drainage Musculoskeletal: Positive for diffuse bone pain and back pain GI: Negative for nausea or vomiting, poor appetite Skin: Reports some bruising at injection site Related Data Home Medications Medication Instructions Recorded Confirmed conjugated estrogens 0.625 mg/gram 0.625 mg vaginal .COMPLEX 10/03/19 08/08/24 vaginal cream (Premarin) losartan 100 mg tablet 100 mg PO DAILY 10/03/19 08/08/24 promethazine 25 mg tablet 25 mg PO Q6H PRN Nausea 10/03/19 08/08/24 fluticasone propionate 50 1 spray intranasal DAILY 11/08/19 08/08/24 mcg/actuation nasal spray,suspension levalbuterol tartrate 45 2 inh inhalation Q4H PRN Shortness 11/08/19 08/08/24 mcg/actuation aerosol inhaler Of Breath (Xopenex HFA) mometasone-formoterol HFA 100 2 puff inhalation BID 11/08/19 08/08/24 mcg-5 mcg/actuation aerosol inhaler (Dulera) lancets 33 gauge (Micro Thin #100 ea 11/09/19 08/08/24 Lancets) azelastine 137 mcg (0.1 %) nasal 1 spray intranasal BID 11/29/19 08/08/24 spray ascorbic acid (vitamin C) 500 mg 500 mg PO DAILY 01/25/20 08/08/24 capsule vitamin B complex 1 cap PO DAILY 01/25/20 08/08/24 jaden root 1 tab PO DAILY 04/24/20 08/08/24 cholecalciferol (vitamin D3) 50 50 mcg PO DAILY 06/17/20 08/08/24 mcg (2,000 unit) capsule hydrocortisone 10 mg tablet 20 mg PO BID 01/07/21 08/08/24 immune globulin,gamma(IgG)klhw 10 10 g SUBCUT Q7D 04/15/21 08/08/24 gram/50 mL(20%)subcut solution levocetirizine 5 mg tablet (Xyzal) 5 mg PO DAILY 06/17/21 08/08/24 metformin 500 mg tablet 500 mg PO BID 06/17/21 08/08/24 amlodipine 5 mg tablet 5 mg PO DAILY 02/05/22 08/08/24 diclofenac sodium 1 % topical gel 4 g topical QID PRN Pain 02/05/22 08/08/24 azithromycin 250 mg tablet ea PO 06/14/23 08/08/24 methocarbamol 750 mg tablet ea PO 06/14/23 08/08/24 acetaminophen 500 mg capsule 500 mg PO BID 09/21/23 08/08/24 celecoxib 100 mg capsule (Celebrex) 100 mg PO BID 08/08/24 08/08/24 Previous Rx's Medication Instructions Recorded spironolactone 50 mg tablet 50 mg PO BID #60 tabs 07/26/20 hydrocodone 10 mg-acetaminophen 1 tab PO .5 times a day PRN pain 09/11/21 325 mg tablet 30 days #150 tabs famotidine 40 mg tablet 40 mg PO DAILY #90 tabs 01/11/24 etanercept 50 mg/mL (1 mL) 50 mg SUBCUT .Q7days #4 mL 08/08/24 subcutaneous syringe (Enbrel) prednisone 5 mg tablet 7.5 mg (1.5 x 5 mg) PO DAILY #135 08/08/24 tabs benzonatate 200 mg capsule 200 mg PO TID PRN cough #20 caps 09/23/24 cefdinir 300 mg capsule 300 mg PO Q12H 10 days #20 caps 09/23/24 oseltamivir 75 mg capsule (Tamiflu) 75 mg PO BID 5 days #10 caps 09/23/24 prednisone 50 mg tablet 50 mg PO DAILY 7 days #7 tabs 09/23/24 Allergies Allergy/AdvReac Type Severity Reaction Status Date / Time gabapentin Allergy unknown Verified 09/23/24 09:53 albuterol AdvReac Unknown RASH, Verified 09/23/24 09:53 BLISTERS TO FACE AND HTN certolizumab pegol AdvReac Unknown SWELLING Verified 09/23/24 09:53 [From Cimzia] hydralazine AdvReac Unknown HEADACHE/HT Verified 09/23/24 09:53 N/FLUSHING lisinopril AdvReac Unknown Unknown Verified 09/23/24 09:53 PFSH ED 2 PFSH: Medical History Hypogammaglobulinemia Seronegative rheumatoid arthritis of both hands Hx of diverticulitis of colon Recurrent infections Cholecystectomy planned Anxiety state Immunization counseling Rheumatoid arthritis with negative rheumatoid factor High risk medication use Immunosuppression Seronegative rheumatoid arthritis Opioid contract exists Encounter for long-term use of opiate analgesic Back pain, lumbosacral Cystocele Rectocele Surgical History S/P hernia repair Laparoscopic Incisional Hernia Repair 02/05/22 H/O left knee surgery ACL right H/O dilation and curettage H/O section H/O hernia repair H/O arthroscopic knee surgery History of colon resection Family History Other CAD (coronary artery disease) Diabetes Hypertension Lupus (systemic lupus erythematosus) Psychiatric illness Rheumatoid arthritis Denies family history of Anesthesia complication Bleeding disorder Social History Smoking and tobacco/nicotine status: former use of tobacco/nicotine Second hand smoke exposure: No Alcohol intake: former Substance/Drug Use: never Physical Exam 2 Const: COMMON NORMALS: no acute distress, patient oriented x3 and well nourished HENMT: COMMON NORMALS: normocephalic and atraumatic HEAD & SCALP: normal to inspection, normocephalic and atraumatic NOSE: Other nasal findings present (Positive nasal congestion) THROAT: posterior oropharynx normal and other (Mucous membranes slightly dry) Eye: COMMON NORMALS: Equal, round and reactive pupils present, EOMs intact bilaterally and no scleral icterus PUPIL: Yes Equal, round and reactive pupils present Neck/C-Spine: OTHER: No cervical lymphadenopathy, neck is supple, no meningeal signs Resp: OTHER: Diffuse expiratory wheezes in all lung smalls, breath sounds are equal bilaterally Cardio: OTHER: Heart is regular, no murmur. Rate is controlled GI: OTHER: Abdomen is soft, nontender, normal bowel sounds Back/Pelvis: OTHER: Posterior lower back area is not tender, there is no erythema or induration. Extremity: NARRATIVE EXTREMITY EXAM: Extremities have no tenderness or swelling Neuro: COMMON NORMALS: patient oriented x3 Course 2 Vital Signs: Vital signs: Vital Signs Temperature 99.1 F 09/23/24 09:44 Pulse Rate 103 H 09/23/24 18:15 Respiratory Rate 17 09/23/24 17:24 Blood Pressure 166/89 09/23/24 18:15 Pulse Oximetry 100 09/23/24 18:15 Oxygen Delivery Me thod Room Air 09/23/24 17:17 MDM - Fever Medical Decision Making 43-year-old patient with asthma and RA presenting with flu-like symptoms and body aches following recent spinal injection, found to be influenza positive with evidence of dehydration. Patient does have a low-grade fever of 99.1 Problem List: 1. Influenza infection 2. Dehydration 3. Asthma exacerbation 4. Post-procedure pain 5. Possible early sepsis Differential Diagnosis: 1. Influenza infection 2. Post-procedure infection/sepsis 3. Asthma exacerbation 4. Pneumonia 5. COVID-19 6. Post- procedure complications ED Course: Patient to receive IV fluids, IV steroids, breathing treatment, IV Toradol for pain. Plan for repeat lactic acid in 2 hours. Blood cultures to be drawn. Will initiate empiric antibiotics and Tamiflu. Will give the patient Solu-Medrol 125 mg, 1 L of normal saline, Rocephin 2 g IV, Tamiflu 75 mg p.o. as well as a Xopenex nebulizer treatment. Chest x-ray per my interpretation shows no infiltrate or effusion or acute finding. EKG shows no acute ischemic changes from interpretation. After the patient's IV fluids have infused, will repeat her lactic acid. As long as her lactic acid is improving, she should be able to go home on oral steroids and antibiotics for her influenza. She also has rheumatoid arthritis. Given the rheumatoid arthritis, she is somewhat immune compromised. Plan to empirically cover her with antibiotics primarily due to her immune compromised state. Also will give her Tamiflu to keep her from getting worse. 1. Influenza A/B: - Initiate Tamiflu - Symptomatic treatment - Patient education regarding rest and hydration 2. Dehydration: - IV fluid hydration - Monitor lactic acid levels 3. Asthma Exacerbation: - IV steroids - Breathing treatments - Continue home inhalers 4. Post-procedure pain/possible infection: - IV Toradol for pain - Empiric antibiotics after blood cultures - Monitor for signs of sepsis 5. Disposition: - Observe in ED for response to treatment - Will reassess need for admission based on clinical response and repeat labs Lab Data Patient's white blood cell count is normal at 10.6. Remainder the CBC is also normal. She is hyponatremic with a sodium of 134, this may be contributing to her body aches and fatigue but not significant enough for admission. Her chloride is low at 95. Potassium is 3.8, CO2 is 25. Glucose is 216. Renal function is normal. She is positive for influenza A. Urinalysis is negative for UTI. Lactic acid is elevated at 3.2. Her CRP is also elevated at 52.1. This somewhat may be related to her recent injection of steroids. 09/23/24 11:03 09/23/24 11:03 Radiology Impressions Chest X-Ray 09/23/24 10:04 IMPRESSION: No acute cardiopulmonary disease. Laboratory Results WBC 10.69 10^3/uL (3.29-11.43) 09/23/24 11:03 RBC 4.32 10^6/uL (3.85-5.65) 09/23/24 11:03 Hgb 12.60 g/dL (11.27-16.99) 09/23/24 11:03 Hct 39.3 % (36-47) 09/23/24 11:03 MCV 91.0 fl (85-98) 09/23/24 11:03 MCH 29.2 pg (27-33) 09/23/24 11:03 MCHC 32.1 g/dL (30-55) 09/23/24 11:03 RDW 14.6 % (12.1-15.1) 09/23/24 11:03 Plt Count 329 10^3/cmm (157-399) 09/23/24 11:03 MPV 8.3 fL (7.4-10.4) 09/23/24 11:03 Neut % (Auto) 92.8 % 09/23/24 11:03 Lymph % (Auto) 3.3 % 09/23/24 11:03 [place] % (Auto) 3.4 % 09/23/24 11:03 Eos % (Auto) 0.0 % 09/23/24 11:03 Baso % (Auto) 0.2 % 09/23/24 11:03 Neut # (Auto) 9.93 10^3/uL (1.8-7.7) H 09/23/24 11:03 Lymph # (Auto) 0.4 10^3/uL (0.8-4.8) L 09/23/24 11:03 [place] # (Auto) 0.4 10^3/uL (0.2-0.9) 09/23/24 11:03 Eos # (Auto) 0.0 10^3/uL (0.0-0.8) 09/23/24 11:03 Baso # (Auto) 0.0 10^3/uL (0.0-0.1) 09/23/24 11:03 Nucleated RBC % (auto) 0 % 09/23/24 11:03 Nucleated RBCs # 0.0 /100WBC 09/23/24 11:03 ESR 37 mm/hr (0-15) H 09/23/24 11:03 Sodium 134 mmol/L (136-145) L 09/23/24 11:03 Potassium 3.8 mmol/L (3.5-5.1) 09/23/24 11:03 Chloride 95 mmol/L (98-107) L 09/23/24 11:03 Carbon Dioxide 25 mmol/L (22-29) 09/23/24 11:03 Anion Gap 17.8 (5-19) 09/23/24 11:03 BUN 9 mg/dL (6-20) 09/23/24 11:03 Creatinine 0.7 mg/dL (0.5-0.9) 09/23/24 11:03 GFR Calculation 86.6 mL/min (90-130) L 09/23/24 11:03 Glucose 216 mg/dL (65-115) H 09/23/24 11:03 Calculated Osmolality 283 mOsm/kg (285-295) L 09/23/24 11:03 Lactic Acid 3.2 mmol/L (0.5-2.2) H 09/23/24 11:03 Lactic Acid (Sepsis) 3.0 mmol/L (0.5-2.2) H 09/23/24 18:48 Calcium 9.2 mg/dL (8.5-10.5) 09/23/24 11:03 Total Bilirubin 0.2 mg/dL (0.15-1.2) 09/23/24 11:03 AST 21 U/L (0-32) 09/23/24 11:03 ALT 27 U/L (0-33) 09/23/24 11:03 Alkaline Phosphatase 86 U/L (35-105) 09/23/24 11:03 C-Reactive Protein 52.1 mg/L (0.0-4.9) H 09/23/24 11:03 Total Protein 6.8 g/dL (6.6-8.7) 09/23/24 11:03 Albumin 3.8 g/dL (3.5-5.2) 09/23/24 11:03 Globulin 3.0 g/dL (1.3-4.6) 09/23/24 11:03 Urine Color Yellow (Yellow) 09/23/24 16:31 Urine Appearance Clear (CLEAR) 09/23/24 16:31 Urine pH 6.5 (5-7) 09/23/24 16:31 Ur Specific [place] 1.008 (1.005-1.030) 09/23/24 16:31 Urine Protein Negative (Negative) 09/23/24 16:31 Urine Glucose (UA) Negative (Normal) 09/23/24 16:31 Urine Ketones Negative (Negative) 09/23/24 16:31 Urine Blood Negative (Negative) 09/23/24 16:31 Urine Nitrate Negative (Negative) 09/23/24 16:31 Urine Bilirubin Negative (Negative) 09/23/24 16:31 Urine Urobilinogen 0.2 mg/dL (Negative) 09/23/24 16:31 Ur Leukocyte Esterase Negative (Negative) 09/23/24 16:31 Urine RBC 0-2 /hpf (0-2) 09/23/24 16:31 Urine WBC 0-5 /hpf (0-5) 09/23/24 16:31 Ur Squamous Epith Cells 0-5 /hpf (0-5) 09/23/24 16:31 Amorphous Sediment Not Reportable 09/23/24 16:31 Urine Bacteria Exceeds /hpf (NONE) 09/23/24 16:31 Hyaline Casts 0-4 /lpf H 09/23/24 16:31 Coronavirus (PCR) Negative (Negative) 09/23/24 10:32 Influenza A (PCR) Positive (Negative) 09/23/24 10:32 Influenza Type B (PCR) Negative (Negative) 09/23/24 10:32 RSV (PCR) Negative (Negative) 09/23/24 10:32 Discharge Plan Discharge Patient Disposition: Home Clinical Impression: Influenza A, Bronchitis, Asthma exacerbation Condition: Stable Prescriptions: New prednisone 50 mg tablet 50 mg PO DAILY 7 Days Qty: 7 0RF cefdinir 300 mg capsule 300 mg PO Q12H 10 Days Qty: 20 0RF oseltamivir [Tamiflu] 75 mg capsule 75 mg PO BID 5 Days Qty: 10 0RF benzonatate 200 mg capsule 200 mg PO TID PRN (Reason: cough) Qty: 20 0RF No Action losartan 100 mg tablet 100 mg PO DAILY promethazine 25 mg tablet 25 mg PO Q6H PRN (Reason: Nausea) Premarin 0.625 mg/gram cream 0.625 mg VAGINAL .COMPLEX Rx Instructions: 0.625 mg vaginal PEA SIZE 2-3 TIMES PER WEEK; levalbuterol tartrate [Xopenex HFA] 45 mcg/actuation HFA aerosol inhaler 2 inh INHALATION Q4H PRN (Reason: Shortness Of Breath) Dulera 100-5 mcg/actuation HFA aerosol inhaler 2 puff INHALATION BID azelastine 137 mcg (0.1 %) aerosol,spray 1 spray INTRANASAL BID fluticasone propionate 50 mcg/actuation spray,suspension 1 spray INTRANASAL DAILY (DME) lancets [Micro Thin Lancets] 33 gauge misc See Rx Instructions .ROUTE .MEDSUPPLY Qty: 100 Rx Instructions: As directed ascorbic acid (vitamin C) 500 mg capsule 500 mg PO DAILY vitamin B complex Capsule 1 cap PO DAILY hydrocortisone 10 mg tablet 20 mg PO BID cholecalciferol (vitamin D3) 50 mcg (2,000 unit) capsule 50 mcg PO DAILY jaden root 1 tab PO DAILY immune globulin,gamma(IgG)klhw 10 gram/50 mL (20 %) solution 10 g SUBCUT Q7D levocetirizine [Xyzal] 5 mg tablet 5 mg PO DAILY metformin 500 mg tablet 500 mg PO BID hydrocodone-acetaminophen 10-325 mg tablet 1 tab PO .5 times a day PRN (Reason: pain) 30 Days Qty: 150 0RF Rx Instructions: fill on or after 10/21/21 acetaminophen 500 mg capsule 500 mg PO BID celecoxib [Celebrex] 100 mg capsule 100 mg PO BID prednisone 5 mg tablet 7.5 mg PO DAILY Qty: 135 1RF Enbrel 50 mg/mL (1 mL) syringe 50 mg SUBCUT .Q7days Qty: 4 5RF methocarbamol 750 mg tablet PO azithromycin 250 mg tablet PO famotidine 40 mg tablet 40 mg PO DAILY Qty: 90 1RF Rx Instructions: refill request spironolactone 50 mg tablet 50 mg PO BID Qty: 60 0RF Rx Instructions: need apt for refills amlodipine 5 mg tablet 5 mg PO DAILY diclofenac sodium 1 % gel 4 g TOPICAL QID PRN (Reason: Pain) Rx Instructions: apply lumbar region Discharge Orders: Discharge ED (Routine); Ordered 09/23/24 Ordered By: Stevan Crowley Referrals: Nir Paulson [Primary Care Provider] - Discharge Diet: Advance as tolerated and Usual diet Discharge Activity: Increase activity as tolerated Patient Instructions: Asthma Exacerbation - Adult, Influenza (ED), Acute Bronchitis (ED), Opioid Safety, Pain Management Activity Restrictions/Additional Instructions: take her medications as prescribed. Tylenol and/or ibuprofen as needed for fever and pain. Continue her other regular pain medications. Return if her symptoms are worsening. Continue to use your inhalers as you normally do. Follow-up in 3 to 5 days with your primary care provider Coding Level of Care Code ED Executive Asst for Chg Fwd Documented by User: Stevan Crowley DO 09/23/24 19:32 HPI - Fever 2 General: Chief Complaint: Fever Stated Complaint: post op fever Time Seen by Provider: 09/23/24 11:52 Related Data Home Medications Medication Instructions Recorded Confirmed conjugated estrogens 0.625 mg/gram 0.625 mg vaginal .COMPLEX 10/03/19 08/08/24 vaginal cream (Premarin) losartan 100 mg tablet 100 mg PO DAILY 10/03/19 08/08/24 promethazine 25 mg tablet 25 mg PO Q6H PRN Nausea 10/03/19 08/08/24 fluticasone propionate 50 1 spray intranasal DAILY 11/08/19 08/08/24 mcg/actuation nasal spray,suspension levalbuterol tartrate 45 2 inh inhalation Q4H PRN Shortness 11/08/19 08/08/24 mcg/actuation aerosol inhaler Of Breath (Xopenex HFA) mometasone-formoterol HFA 100 2 puff inhalation BID 11/08/19 08/08/24 mcg-5 mcg/actuation aerosol inhaler (Dulera) lancets 33 gauge (Micro Thin #100 ea 11/09/19 08/08/24 Lancets) azelastine 137 mcg (0.1 %) nasal 1 spray intranasal BID 11/29/19 08/08/24 spray ascorbic acid (vitamin C) 500 mg 500 mg PO DAILY 01/25/20 08/08/24 capsule vitamin B complex 1 cap PO DAILY 01/25/20 08/08/24 jaden root 1 tab PO DAILY 04/24/20 08/08/24 cholecalciferol (vitamin D3) 50 50 mcg PO DAILY 06/17/20 08/08/24 mcg (2,000 unit) capsule hydrocortisone 10 mg tablet 20 mg PO BID 01/07/21 08/08/24 immune globulin,gamma(IgG)klhw 10 10 g SUBCUT Q7D 04/15/21 08/08/24 gram/50 mL(20%)subcut solution levocetirizine 5 mg tablet (Xyzal) 5 mg PO DAILY 06/17/21 08/08/24 metformin 500 mg tablet 500 mg PO BID 06/17/21 08/08/24 amlodipine 5 mg tablet 5 mg PO DAILY 02/05/22 08/08/24 diclofenac sodium 1 % topical gel 4 g topical QID PRN Pain 02/05/22 08/08/24 azithromycin 250 mg tablet ea PO 06/14/23 08/08/24 methocarbamol 750 mg tablet ea PO 06/14/23 08/08/24 acetaminophen 500 mg capsule 500 mg PO BID 09/21/23 08/08/24 celecoxib 100 mg capsule (Celebrex) 100 mg PO BID 08/08/24 08/08/24 Previous Rx's Medication Instructions Recorded spironolactone 50 mg tablet 50 mg PO BID #60 tabs 07/26/20 hydrocodone 10 mg-acetaminophen 1 tab PO .5 times a day PRN pain 09/11/21 325 mg tablet 30 days #150 tabs famotidine 40 mg tablet 40 mg PO DAILY #90 tabs 01/11/24 etanercept 50 mg/mL (1 mL) 50 mg SUBCUT .Q7days #4 mL 08/08/24 subcutaneous syringe (Enbrel) prednisone 5 mg tablet 7.5 mg (1.5 x 5 mg) PO DAILY #135 08/08/24 tabs benzonatate 200 mg capsule 200 mg PO TID PRN cough #20 caps 09/23/24 cefdinir 300 mg capsule 300 mg PO Q12H 10 days #20 caps 09/23/24 oseltamivir 75 mg capsule (Tamiflu) 75 mg PO BID 5 days #10 caps 09/23/24 prednisone 50 mg tablet 50 mg PO DAILY 7 days #7 tabs 09/23/24 Allergies Allergy/AdvReac Type Severity Reaction Status Date / Time gabapentin Allergy unknown Verified 09/23/24 09:53 albuterol AdvReac Unknown RASH, Verified 09/23/24 09:53 BLISTERS TO FACE AND HTN certolizumab pegol AdvReac Unknown SWELLING Verified 09/23/24 09:53 [From Cimzia] hydralazine AdvReac Unknown HEADACHE/HT Verified 09/23/24 09:53 N/FLUSHING lisinopril AdvReac Unknown Unknown Verified 09/23/24 09:53 PFSH ED 2 PFSH: Medical History Hypogammaglobulinemia Seronegative rheumatoid arthritis of both hands Hx of diverticulitis of colon Recurrent infections Cholecystectomy planned Anxiety state Immunization counseling Rheumatoid arthritis with negative rheumatoid factor High risk medication use Immunosuppression Seronegative rheumatoid arthritis Opioid contract exists Encounter for long-term use of opiate analgesic Back pain, lumbosacral Cystocele Rectocele Surgical History S/P hernia repair Laparoscopic Incisional Hernia Repair 02/05/22 H/O left knee surgery ACL right H/O dilation and curettage H/O section H/O hernia repair H/O arthroscopic knee surgery History of colon resection Family History Other CAD (coronary artery disease) Diabetes Hypertension Lupus (systemic lupus erythematosus) Psychiatric illness Rheumatoid arthritis Denies family history of Anesthesia complication Bleeding disorder Social History Smoking and tobacco/nicotine status: former use of tobacco/nicotine Second hand smoke exposure: No Alcohol intake: former Substance/Drug Use: never Course 2 Vital Signs: Vital signs: Vital Signs Temperature 99.1 F 09/23/24 09:44 Pulse Rate 103 H 09/23/24 18:15 Respiratory Rate 17 09/23/24 17:24 Blood Pressure 166/89 09/23/24 18:15 Pulse Oximetry 100 09/23/24 18:15 Oxygen Delivery Me thod Room Air 09/23/24 17:17 MDM - Fever Medical Decision Making 43-year-old patient with asthma and RA presenting with flu-like symptoms and body aches following recent spinal injection, found to be influenza positive with evidence of dehydration. Patient does have a low-grade fever of 99.1 Problem List: 1. Influenza infection 2. Dehydration 3. Asthma exacerbation 4. Post-procedure pain 5. Possible early sepsis Differential Diagnosis: 1. Influenza infection 2. Post-procedure infection/sepsis 3. Asthma exacerbation 4. Pneumonia 5. COVID-19 6. Post- procedure complications ED Course: Patient to receive IV fluids, IV steroids, breathing treatment, IV Toradol for pain. Plan for repeat lactic acid in 2 hours. Blood cultures to be drawn. Will initiate empiric antibiotics and Tamiflu. Will give the patient Solu-Medrol 125 mg, 1 L of normal saline, Rocephin 2 g IV, Tamiflu 75 mg p.o. as well as a Xopenex nebulizer treatment. Chest x-ray per my interpretation shows no infiltrate or effusion or acute finding. EKG shows no acute ischemic changes from interpretation. After the patient's IV fluids have infused, will repeat her lactic acid. As long as her lactic acid is improving, she should be able to go home on oral steroids and antibiotics for her influenza. She also has rheumatoid arthritis. Given the rheumatoid arthritis, she is somewhat immune compromised. Plan to empirically cover her with antibiotics primarily due to her immune compromised state. Also will give her Tamiflu to keep her from getting worse. 1. Influenza A/B: - Initiate Tamiflu - Symptomatic treatment - Patient education regarding rest and hydration 2. Dehydration: - IV fluid hydration - Monitor lactic acid levels 3. Asthma Exacerbation: - IV steroids - Breathing treatments - Continue home inhalers 4. Post-procedure pain/possible infection: - IV Toradol for pain - Empiric antibiotics after blood cultures - Monitor for signs of sepsis 5. Disposition: - Observe in ED for response to treatment - Will reassess need for admission based on clinical response and repeat labs Lactic has fallen after IV fluids. Response to medication seems to be appropriate. Home with medication for antibiotic coverage, steroids, Tamiflu. Return for worsening symptoms. Close outpatient follow-up. Lab Data 09/23/24 11:03 09/23/24 11:03 Radiology Impressions Chest X-Ray 09/23/24 10:04 IMPRESSION: No acute cardiopulmonary disease. Laboratory Results WBC 10.69 10^3/uL (3.29-11.43) 09/23/24 11:03 RBC 4.32 10^6/uL (3.85-5.65) 09/23/24 11:03 Hgb 12.60 g/dL (11.27-16.99) 09/23/24 11:03 Hct 39.3 % (36-47) 09/23/24 11:03 MCV 91.0 fl (85-98) 09/23/24 11:03 MCH 29.2 pg (27-33) 09/23/24 11:03 MCHC 32.1 g/dL (30-55) 09/23/24 11:03 RDW 14.6 % (12.1-15.1) 09/23/24 11:03 Plt Count 329 10^3/cmm (157-399) 09/23/24 11:03 MPV 8.3 fL (7.4-10.4) 09/23/24 11:03 Neut % (Auto) 92.8 % 09/23/24 11:03 Lymph % (Auto) 3.3 % 09/23/24 11:03 [place] % (Auto) 3.4 % 09/23/24 11:03 Eos % (Auto) 0.0 % 09/23/24 11:03 Baso % (Auto) 0.2 % 09/23/24 11:03 Neut # (Auto) 9.93 10^3/uL (1.8-7.7) H 09/23/24 11:03 Lymph # (Auto) 0.4 10^3/uL (0.8-4.8) L 09/23/24 11:03 [place] # (Auto) 0.4 10^3/uL (0.2-0.9) 09/23/24 11:03 Eos # (Auto) 0.0 10^3/uL (0.0-0.8) 09/23/24 11:03 Baso # (Auto) 0.0 10^3/uL (0.0-0.1) 09/23/24 11:03 Nucleated RBC % (auto) 0 % 09/23/24 11:03 Nucleated RBCs # 0.0 /100WBC 09/23/24 11:03 ESR 37 mm/hr (0-15) H 09/23/24 11:03 Sodium 134 mmol/L (136-145) L 09/23/24 11:03 Potassium 3.8 mmol/L (3.5-5.1) 09/23/24 11:03 Chloride 95 mmol/L (98-107) L 09/23/24 11:03 Carbon Dioxide 25 mmol/L (22-29) 09/23/24 11:03 Anion Gap 17.8 (5-19) 09/23/24 11:03 BUN 9 mg/dL (6-20) 09/23/24 11:03 Creatinine 0.7 mg/dL (0.5-0.9) 09/23/24 11:03 GFR Calculation 86.6 mL/min (90-130) L 09/23/24 11:03 Glucose 216 mg/dL (65-115) H 09/23/24 11:03 Calculated Osmolality 283 mOsm/kg (285-295) L 09/23/24 11:03 Lactic Acid 3.2 mmol/L (0.5-2.2) H 09/23/24 11:03 Lactic Acid (Sepsis) 3.0 mmol/L (0.5-2.2) H 09/23/24 18:48 Calcium 9.2 mg/dL (8.5-10.5) 09/23/24 11:03 Total Bilirubin 0.2 mg/dL (0.15-1.2) 09/23/24 11:03 AST 21 U/L (0-32) 09/23/24 11:03 ALT 27 U/L (0-33) 09/23/24 11:03 Alkaline Phosphatase 86 U/L (35-105) 09/23/24 11:03 C-Reactive Protein 52.1 mg/L (0.0-4.9) H 09/23/24 11:03 Total Protein 6.8 g/dL (6.6-8.7) 09/23/24 11:03 Albumin 3.8 g/dL (3.5-5.2) 09/23/24 11:03 Globulin 3.0 g/dL (1.3-4.6) 09/23/24 11:03 Urine Color Yellow (Yellow) 09/23/24 16:31 Urine Appearance Clear (CLEAR) 09/23/24 16:31 Urine pH 6.5 (5-7) 09/23/24 16:31 Ur Specific [place] 1.008 (1.005-1.030) 09/23/24 16:31 Urine Protein Negative (Negative) 09/23/24 16:31 Urine Glucose (UA) Negative (Normal) 09/23/24 16:31 Urine Ketones Negative (Negative) 09/23/24 16:31 Urine Blood Negative (Negative) 09/23/24 16:31 Urine Nitrate Negative (Negative) 09/23/24 16:31 Urine Bilirubin Negative (Negative) 09/23/24 16:31 Urine Urobilinogen 0.2 mg/dL (Negative) 09/23/24 16:31 Ur Leukocyte Esterase Negative (Negative) 09/23/24 16:31 Urine RBC 0-2 /hpf (0-2) 09/23/24 16:31 Urine WBC 0-5 /hpf (0-5) 09/23/24 16:31 Ur Squamous Epith Cells 0-5 /hpf (0-5) 09/23/24 16:31 Amorphous Sediment Not Reportable 09/23/24 16:31 Urine Bacteria Exceeds /hpf (NONE) 09/23/24 16:31 Hyaline Casts 0-4 /lpf H 09/23/24 16:31 Coronavirus (PCR) Negative (Negative) 09/23/24 10:32 Influenza A (PCR) Positive (Negative) 09/23/24 10:32 Influenza Type B (PCR) Negative (Negative) 09/23/24 10:32 RSV (PCR) Negative (Negative) 09/23/24 10:32 All radiology interpretation(s) finalized by discharge Discharge Plan Discharge Patient Disposition: Home Clinical Impression: Influenza A, Bronchitis, Asthma exacerbation Condition: Stable Prescriptions: New prednisone 50 mg tablet 50 mg PO DAILY 7 Days Qty: 7 0RF cefdinir 300 mg capsule 300 mg PO Q12H 10 Days Qty: 20 0RF oseltamivir [Tamiflu] 75 mg capsule 75 mg PO BID 5 Days Qty: 10 0RF benzonatate 200 mg capsule 200 mg PO TID PRN (Reason: cough) Qty: 20 0RF No Action losartan 100 mg tablet 100 mg PO DAILY promethazine 25 mg tablet 25 mg PO Q6H PRN (Reason: Nausea) Premarin 0.625 mg/gram cream 0.625 mg VAGINAL .COMPLEX Rx Instructions: 0.625 mg vaginal PEA SIZE 2-3 TIMES PER WEEK; levalbuterol tartrate [Xopenex HFA] 45 mcg/actuation HFA aerosol inhaler 2 inh INHALATION Q4H PRN (Reason: Shortness Of Breath) Dulera 100-5 mcg/actuation HFA aerosol inhaler 2 puff INHALATION BID azelastine 137 mcg (0.1 %) aerosol,spray 1 spray INTRANASAL BID fluticasone propionate 50 mcg/actuation spray,suspension 1 spray INTRANASAL DAILY (DME) lancets [Micro Thin Lancets] 33 gauge misc See Rx Instructions .ROUTE .MEDSUPPLY Qty: 100 Rx Instructions: As directed ascorbic acid (vitamin C) 500 mg capsule 500 mg PO DAILY vitamin B complex Capsule 1 cap PO DAILY hydrocortisone 10 mg tablet 20 mg PO BID cholecalciferol (vitamin D3) 50 mcg (2,000 unit) capsule 50 mcg PO DAILY jaden root 1 tab PO DAILY immune globulin,gamma(IgG)klhw 10 gram/50 mL (20 %) solution 10 g SUBCUT Q7D levocetirizine [Xyzal] 5 mg tablet 5 mg PO DAILY metformin 500 mg tablet 500 mg PO BID hydrocodone-acetaminophen 10-325 mg tablet 1 tab PO .5 times a day PRN (Reason: pain) 30 Days Qty: 150 0RF Rx Instructions: fill on or after 10/21/21 acetaminophen 500 mg capsule 500 mg PO BID celecoxib [Celebrex] 100 mg capsule 100 mg PO BID prednisone 5 mg tablet 7.5 mg PO DAILY Qty: 135 1RF Enbrel 50 mg/mL (1 mL) syringe 50 mg SUBCUT .Q7days Qty: 4 5RF methocarbamol 750 mg tablet PO azithromycin 250 mg tablet PO famotidine 40 mg tablet 40 mg PO DAILY Qty: 90 1RF Rx Instructions: refill request spironolactone 50 mg tablet 50 mg PO BID Qty: 60 0RF Rx Instructions: need apt for refills amlodipine 5 mg tablet 5 mg PO DAILY diclofenac sodium 1 % gel 4 g TOPICAL QID PRN (Reason: Pain) Rx Instructions: apply lumbar region Discharge Orders: Discharge ED (Routine); Ordered 09/23/24 Ordered By: Stevan Crowley Referrals: Nir Paulson [Primary Care Provider] - Discharge Diet: Advance as tolerated and Usual diet Discharge Activity: Increase activity as tolerated Patient Instructions: Asthma Exacerbation - Adult, Influenza (ED), Acute Bronchitis (ED), Opioid Safety, Pain Management Activity Restrictions/Additional Instructions: take her medications as prescribed. Tylenol and/or ibuprofen as needed for fever and pain. Continue her other regular pain medications. Return if her symptoms are worsening. Continue to use your inhalers as you normally do. Follow-up in 3 to 5 days with your primary care provider Coding Level of Care Code ED Executive Asst for Josh Hogan
[2024-09-23 17:17] VITALS: PULSE 97; RESP 16; O2SAT 98
[2024-09-23] MEDS: levalbuterol 1.25 mg/3 mL Neb INHALATION (17:17)
[2024-09-23] MEDS: methylPREDNISolone sod succ 125 mg/2 mL INJ IVP (17:23)
[2024-09-23 17:24] VITALS: RESP 17; O2SAT 99
[2024-09-23] MEDS: morphine 4 mg/mL SDV 1 mL IVP (17:24)
[2024-09-23] MEDS: cefTRIAXone 2,000 mg SDV 2000 MG IVP (17:26)
[2024-09-23] MEDS: sodium chloride 0.9% 1,000 ML 999 ML IV (17:26)
[2024-09-23] MEDS: oseltamivir phosphate 75 mg Capsule PO (17:41)
[2024-09-23 18:15] VITALS: BP 166/89; PULSE 103; O2SAT 100
[2024-09-23] MEDS: ketorolac 30 mg/mL INJ 15 MG IVP (19:50)
[2024-09-23 19:53] VITALS: BP 156/82; PULSE 104; RESP 16; O2SAT 95
== END 2024-09-23 19:58 | disposition home or self-care (01) ==
PROVIDERS: Emergency Medicine; Emergency Provider Emergency Medicine; PCP Family Medicine
DX: J10.1 Influenza due to other identified influenza virus with other respiratory manifestations (principal); J45.901 Unspecified asthma with (acute) exacerbation; Z11.52 Encounter for screening for COVID-19; Z87.891 Personal history of nicotine dependence
CPT/HCPCS: 36415; 71045; 80053; 81001; 83605; 85025; 85651; 86140; 87040; 87637; 94640; 96361; 96374; 96375; 99284; J0696; J1885; J2270; J2919; J7030; J7614

== ENCOUNTER → 2024-11-03 10:03 | Outpatient (BNVA) | payer MEDICAID, SELFPAY | PROVIDERS: PCP Family Medicine; Visit Provider Specialist | DX: M62.838 Other muscle spasm (principal) | CPT/HCPCS: 64642; J0585; J9999 ==

== ENCOUNTER → 2024-12-11 11:36 | Outpatient (BNVA) | payer MEDICAID, SELFPAY | PROVIDERS: PCP Family Medicine; Visit Provider Internal Medicine Rheumatology | DX: M06.041 Rheumatoid arthritis without rheumatoid factor, right hand (principal); M06.042 Rheumatoid arthritis without rheumatoid factor, left hand; Z79.899 Other long term (current) drug therapy; Z71.89 Other specified counseling; D80.1 Nonfamilial hypogammaglobulinemia | CPT/HCPCS: 36415; 80076; 82565; 85025; 85651; 86140; 99214 ==

== ENCOUNTER → 2025-02-09 09:37 | Outpatient (BNVA) | payer MEDICAID, SELFPAY | PROVIDERS: PCP Family Medicine; Visit Provider Specialist | DX: M62.838 Other muscle spasm (principal) | CPT/HCPCS: 64642; 99213; J0585; J9999 ==

== ENCOUNTER → 2025-05-02 11:26 | Outpatient (BNVA) | payer MEDICAID, SELFPAY | PROVIDERS: PCP Family Medicine; Visit Provider Podiatrist Foot & Ankle Surgery | DX: L97.521 Non-pressure chronic ulcer of other part of left foot limited to breakdown of skin (principal); M20.42 Other hammer toe(s) (acquired), left foot | CPT/HCPCS: 99203 ==

== ENCOUNTER 2025-06-24 10:26 | Inpatient (IN) | payer MEDICAID, SELFPAY ==
--- OUTSIDE RECORDS SUMMARY | 2025-02-01 08:40 | XMS_ITS ---
Author Organization [facility] Address [address] [place] [address] Care Team Providers Care Block Stacker Name Role Phone Nir Paulson MD Primary Care Provider UnavailKira Silva Unavailable Nanda Wright Unavailable [phone] REASON FOR VISIT 6 weeks f/u CNA GNA Encounters Encounter Location Date Provider Diagnosis [facility] [place] [address] [place] [address] 02/01/2025 Nanda Wright Chronic pain syndrome G89.4 [...] Treatment Next Appt Details Provider Name:Kira Weinstein, 07/03/2025 10:00:00 AM, [address] [place], [address], History and Physical Notes * HPI (History of Present Illness) Category Sub-Category Detail Notes Category Not es Provider Note Interventions: 09/20/2024 caudal DELFINO L4-S1 TLIF on 09/07/22 Dr. Womack Pertinent Imaging: LS MRI in [facility] at [place] The EMG/NCV study shows a chronic right [...] Donohue who is an ER physician in [place], [place]. She got dismissed from that clinic [...] Tools Last Urine Drug Screen 07/2024 Confirmation [place] Prescription Monitoring Program PDMP Reviewed Progress Notes * Eri SMITHYannB:1970 ( 55 yo F)Acc No.[id number]:02/01/2025 Progress Notes Patient: Cathi Perez Provider: GEOVANNA Grove :1970 A ge:54 Y S ex:Female Date:02/01/2025 Address:[address] [place], [place] [id number] Pcp:Nir Paulson MD Subjective: * Chief Complaints: * 6 weeks f/u CNA GNA * HPI: P ain Details: Pain Location [...] Last Urine Drug Screen 1 09/2023 Confirmation. [place] Prescription Monitoring Program P TINA Reviewed.? Diana [...] Dr. Womack Pertinent Imaging: LS MRI in [facility] at [place] The EMG/NCV study shows a chronic right S1 radiculopathy and a chronic left L5 radiculopathy. Original HPI: [facility] She is being referred by Dr. Womack, [...] Donohue who is an ER physician in [place], [place]. She got dismissed from that clinic [...] Electronic signature of Meagan Wright APRN on 06/24/2025 at 10:31 AM SCHOOL PSYCHOLOGY PROFESSOR Sign off status: Pending * Provider: GEOVANNA Grove Date: 0 02/01/2025 Generated for Rahat beckford/Destiny/Steviesmitting on: 1 08/24/2024 10:31 AM SCHOOL PSYCHOLOGY PROFESSOR
--- OUTSIDE RECORDS SUMMARY | 2025-06-18 14:00 | XMS_ITS | Encounter Summary ---
Author Organization [facility] Address [address] [place] [address] Care Team Providers Care Supervisor Tumbling And Rolling Name Role Phone Nir Paulson MD Primary Care Provider [phone] Reason for Referral * MRI (Routine) - Open Specialty Diagnoses / Procedures Referred By Kang t Referred To Contact Radiology Diagnoses Myelopathy Procedures MRI CERVICAL WO CONTRAST Martínez Han MD [address] [place] [address] Phone: tel: fax: [facility] [place] [address] [place] [address] Phone: tel: fax: Referral ID Status Reason Start Date Expiration Date V isits Requested Visits Authorized [id number] Open NVN View CTS to Schedule 06/18/2025 07/19/2026 1 1 * Eval and Treat (Routine) - Authorized Specialty Diagnoses / Procedures Referred By Kang t Referred To Contact Neurology Diagnoses Myelopathy Procedures WI OFFICE/OUTPATIENT ESTABLISHED MOD MDM 30 MIN WI OFFICE/OUTPATIENT NEW MODERATE MDM 45 MINUTES Martínez Han MD [address] [place] [address] Phone: tel: fax: [facility] Neurology - [place] [address] [place] [address] Phone: tel: fax: Referral ID Status Reason Start Date Expiration Date V isits Requested Visits Authorized [id number] Authorized 06/18/2025 06/18/2026 1 1 Reason for Visit * Reason Comments Consult * Eval and Treat (Routine) - Closed Specialty Diagnoses / Procedures Referred By Contac t Referred To Contact Neurosurgery Diagnoses S/P lumbar fusion Lumbosacral spondylosis without myelopathy Procedures WI OFFICE/OUTPATIENT ESTABLISHED MOD MDM 30 MIN WI OFFICE/OUTPATIENT NEW MODERATE MDM 45 MINUTES Oralia Elliott FNP [address] [place] [address] Phone: tel: fax: [facility] [address] [place] [address] Phone: tel: fax: Referral ID Status Reason Start Date Expiration Date Visits Re quested Visits Authorized [id number] Closed 04/20/2025 04/20/2026 1 1 Encounter Details Date Type Department Care Team (Latest Contact Info) Description 06/18/2025 3:00 PM CDT Office Visit [facility] Neuro[facility] [address] [place] [address] Martínez Han MD [address] [place] [address] Myelopathy (Primary Dx) Social History Tobacco Use Types Packs/Day Years Used Date Smoking Tobacco: Former Cigarettes 0.5 15 0 02/01/1981 - 02/02/1996 Passive Smoke Exposure: Past Smokeless Tobacco: Never Alcohol Use Standard Drinks/Week Comments No 0 (1 standard drink = 0.6 oz pur e alcohol) Food Insecurity Answer Date Recorded Do you find you are eating l ess than you should because you can t pay for food? No 06/01/2025 Transportation Needs Answer Date Record ed Have you gone without health care because you didn t have a way to get there? Or worry about transportation for future doctor visits, supervisor picking crew medication, etc.? No 2024 Housing Stability Answer Date Recorded Do you worry you won t have a steady place to sleep or struggle to pay rent or mortgage? No 06/01/2025 Utility Needs Answer Date Recorded Do you have difficulty payin g for utility costs (electric, water or gas bills)? No 06/01/2025 Medication Needs Answer Date Recorded Have you skipped taking medi cation due to cost or worry you can t afford new medications? No 06/01/2025 Feeling Safe Answer Date Recorded Are you in a relationship wi th someone who hurts you emotionally and/or physically? No 06/01/2025 Comments No Sex and Gender Information Value Date Recorded Sex Assigned at Not on file Legal Sex Female 3:40 AM LYRIC WRITER Gender Identity Not on file Sexual Orientation Not on file documented as of this encounter Last Filed Vital Signs Vital Sign Reading Time Taken Comments Blood Pressure 130/74 06/18/2025 3:14 PM CDT Pulse 72 06/18/2025 3:14 PM CDT Temperature - - Respiratory Rate - - Oxygen Saturation - - Inhaled Oxygen Concentration - - Weight 93.4 kg (206 lb) 06/18/2025 3:14 PM CDT Height 170.2 cm (5' 7 ) 06/18/2025 3:14 PM CDT Body Mass Index 32.26 06/18/2025 3:14 PM CDT documented in this encounter Miscellaneous Notes * Patient Instructions - Janine Coto, RMA - 06/18/2025 3:[address] Han and Venkatesh [facility] may need further testing or referrals to treat you. If you are referred to another doctor or specialty that referring office will contact you within 7-10 business days. If you do not hear anything from us (or the other physician???s office) within 7-10 business days, please contact our office at [phone] and ask for Janine Joint Maker Machine so we can help ensure your referral has been arranged. If you had labs or imaging ordered at your appointment today, you may schedule this by calling centralized scheduling at [phone]. Labs: Go to [facility] ([address] [place] [address]). Enter through the Main Entrance. Admitting Department is on the 1st floor on the left and they will check you in for your labs and direct you from there or any other [facility] Lab. Imaging/Diagnostic such as MRI, CT, Ultrasound or Angiogram. Please Schedule at [phone] or youwill be contacted within 1-2 weeks. 3. If you had Imaging/Diagnostic such as MRI,CT, or Ultrasound. [facility] Central Scheduling will call you within 1-2 weeks. They will make every effort to reach you at home or cell number. However, if we request the test be delayed for extended period, then [facility] scheduling will contact you closer to the requested time frame. If you have any questions, please feel to contact [facility] [employer] Schedulingat [phone] or [phone]. Wednesday -Wednesday 7:30 am to 6pm. 4. If you have FMLA or Insurance paperwork for our office to fill out, please have your portion of the paperwork complete prior to giving it to our office. This will help to insure that your documentation is completed in a timely manner. Any paperwork needed from our office will normally take 48 to72 business hours to be completed. If paperwork is to be faxed or mailed, please provide the fax number or the address for the documents to be sent to. If you have requested our office to mail documents, please be aware that the mail system at [facility] may take up to 1 week to process prior to entering the [place] mail system. Thank You Also, Please be sure to check out [employer] as another tool to contact Venkatesh Caraballo, or Brigitte email. documented in this encounter Plan of Treatment Upcoming Encounters Date Type Department Care Team (Late st Contact Info) Description 06/25/2025 1:00 PM LYRIC WRITER Appointment [facility] [place] [address] [place] [address] [employer]ralia, DIRECTOR DIGITAL SALES [address] [facility] [address] [place] [address] 06/25/2025 2:00 PM LYRIC WRITER Appointment [facility] Ultrasound [place] [address] [place] [address] Lima Perez, [address]STAN[address] [place] [address] 06/25/2025 2:45 PM LYRIC WRITER Appointment [facility] CT Scan [place] [address] [place] [address] Lima Perez, CONSTAN[address] [place] [address] 07/04/2025 1:40 PM LYRIC WRITER Office Visit [facility]opedics [place] [address] [place] [address] Byron Rubi PA-C [address] [place] [address] 07/10/2025 1:00 PM LYRIC WRITER Office Visit [facility] [address] [place] [address] Berlin Summers PA [address] [place] [address] 08/08/2025 3:30 PM LYRIC WRITER Office Visit [facility] Douglas Norm Groton [address] [place] [address] Nanda Mg NP [address] [place] [address] 08/27/2025 2:20 PM LYRIC WRITER Telephone Check Up [facility] Neurosurgery [address] [place] [address] Martínez Han MD [address] [place] [address] 11/07/2025 2:40 PM CDT Office Visit [facility] Family Medicine [place] [address] [address] Nir Paulson MD [address] [place] [address] 11/13/2025 2:30 PM CDT Office Visit [facility] [address] [place] [address] Alfred Tracy MD [address] [place] [address] 01/15/2026 8:45 AM CDT Office Visit [facility] Neu[facility] - [place] [address] [place] [address] Martínez Han MD [address] [place] [address] Yaneth Bass MD [address] [place] [address] Scheduled Orders Name Type Priority Associated Diagnoses Orde r Schedule MRI CERVICAL WO CONTRAST Imaging Routine Myelopathy Expected: 06/18/2025, Expires: 06/18/2026 Scheduled Referrals Name Type Priority Associated Diagnoses Orde r Schedule AMB REFERRAL TO NEUROLOGY Outpatient Referral Routine Myelopathy Ordered: 06/18/2025 documented as of this encounter Visit Diagnoses Diagnosis Myelopathy- Primary Unspecified disease of spinal cord documented in this encounter Care Teams Supervisor Tumbling And Rolling Relationship Specialty Start Date End Date Nir Paulson MD [address] [place] [id number] PCP - General Family Practice 10/13/21 documented as of this encounter
--- OUTSIDE RECORDS SUMMARY | 2025-06-18 14:00 | XMS_ITS | Encounter Summary ---
Author Organization [employer] Address [address] [place] [address] Care Team Providers Care Marketing Co Op Name Role Phone Nir Paulson MD Primary Care Provider [phone] Reason for Referral * MRI (Routine) - Open Specialty Diagnoses / Procedures Referred By Kang t Referred To Contact Radiology Diagnoses Myelopathy Procedures MRI CERVICAL WO CONTRAST Martínez Han MD [address] [place] [address] Phone: tel: fax: [facility] [place] [address] [place] [address] Phone: tel: fax: Referral ID Status Reason Start Date Expiration Date V isits Requested Visits Authorized [id number] Open NYN View CTS to Schedule 06/18/2025 07/19/2026 1 1 * Eval and Treat (Routine) - Authorized Specialty Diagnoses / Procedures Referred By Kang t Referred To Contact Neurology Diagnoses Myelopathy Procedures MO OFFICE/OUTPATIENT ESTABLISHED MOD MDM 30 MIN MO OFFICE/OUTPATIENT NEW MODERATE MDM 45 MINUTES Martínez Han MD [address] [place] [address] Phone: tel: fax: [facility] Neurology - [place] [address] [place] [address] Phone: tel: fax: Referral ID Status Reason Start Date Expiration Date V isits Requested Visits Authorized [id number] Authorized 06/18/2025 06/18/2026 1 1 Reason for Visit * Reason Comments Consult * Eval and Treat (Routine) - Closed Specialty Diagnoses / Procedures Referred By Contac t Referred To Contact Neurosurgery Diagnoses S/P lumbar fusion Lumbosacral spondylosis without myelopathy Procedures MO OFFICE/OUTPATIENT ESTABLISHED MOD MDM 30 MIN MO OFFICE/OUTPATIENT NEW MODERATE MDM 45 MINUTES Oralia Elliott FNP [address] [facility] [address] [place] [address] Phone: tel: fax: [facility] Neurosurgery [address] [place] [address] Phone: tel: fax: Referral ID Status Reason Start Date Expiration Date Visits Re quested Visits Authorized [id number] Closed 04/20/2025 04/20/2026 1 1 Encounter Details Date Type Department Care Team (Latest Contact Info) Description 06/18/2025 3:00 PM CDT Office Visit [facility] Neurosurgery [address] [place] [address] Martínez Han MD [address] [place] [address] Myelopathy (Primary Dx) Social History [...] worry about transportation for future doctor visits, tack picker medication, etc.? No 2024 Housing Stability Answer [...] on file Legal Sex Female 3:40 AM KNITTING MACHINE FIXER HEAD Gender Identity Not on file Sexual Orientation [...] 3:[address] Han and Venkatesh [facility] may need further testing or referrals to treat you. If you are referred to another doctor or specialty that referring office will contact you within 7-10 business days. If you do not hear anything from us (or the other physician???s office) within 7-10 business days, please contact our office at [phone] and ask for Janine Composite Layup Worker so we can help ensure your referral has been arranged. If you had labs or imaging ordered at your appointment today, you may schedule this by calling centralized scheduling at [phone]. Labs: Go to [facility] ([address] [place] [address]). Enter through the Main Entrance. Admitting Department is on the 1st floor on the left and they will check you in for your labs and direct you from there or any other [facility] Lab. Imaging/Diagnostic such as MRI, CT, Ultrasound or Angiogram. Please Schedule at [phone] or youwill be contacted within 1-2 weeks. 3. If you had Imaging/Diagnostic such as MRI,CT, or Ultrasound. [facility] Central Scheduling will call you within 1-2 weeks. They will make every effort to reach you at home or cell number. However, if we request the test be delayed for extended period, then [facility] scheduling will contact you closer to the requested time frame. If you have any questions, please feel to contact [facility] [employer] Schedulingat [phone] or [phone]. Wednesday -Wednesday 7:30 am to 6pm. 4. [...] be aware that the mail system at [facility] may take up to 1 week to process prior to entering the [place] mail system. Thank You Also, Please be sure to check out [employer] as another tool to contact Venkatesh Caraballo, or Brigitte email. documented in this encounter Plan of Treatment Upcoming Encounters Date Type Department Care Team (Late st Contact Info) Description 06/25/2025 1:00 PM KNITTING MACHINE FIXER HEAD Appointment [facility] [employer] [place] [address] [place] [address] EarlOralia, VAT TENDER [address] [facility] [address] [place] [address] 06/25/2025 2:00 PM KNITTING MACHINE FIXER HEAD Appointment [facility] Ultrasound [place] [address] [place] [address] Lima Perez, [address]AN[address] [place] [address] 06/25/2025 2:45 PM KNITTING MACHINE FIXER HEAD Appointment [facility] CT Scan [place] [address] [place] [address] Lima Perez, [address]STAN[address] [place] [address] 07/04/2025 1:40 PM KNITTING MACHINE FIXER HEAD Office Visit [facility] Orthopedics [place] [address] [place] [address] Byron Rubi PA-C [address] [place] [address] 07/10/2025 1:00 PM KNITTING MACHINE FIXER HEAD Office Visit [facility] [address] [place] [address] Berlin Summers PA [address] [place] [address] 08/08/2025 3:30 PM KNITTING MACHINE FIXER HEAD Office Visit [facility] Douglas [place] [address] [place] [address] Nanda Mg NP [address] [place] [address] 08/27/2025 2:20 PM KNITTING MACHINE FIXER HEAD Telephone Check Up [facility] Neurosurgery [address] [place] [address] Martínez Han MD [address] [place] [address] 11/07/2025 2:40 PM CDT Office Visit [facility] Family Medicine [place] [address] [address] Nir Paulson MD [address] [place] [address] 11/13/2025 2:30 PM CDT Office Visit [facility] [address] [place] [address] Alfred Tracy MD [address] [place] [address] 01/15/2026 8:45 AM CDT Office Visit [facility] Neurology - [place] [address] [place] [address] Martínez Han MD [address] [place] [address] Yaneth Bass MD [address] [place] [address] Scheduled Orders Name Type Priority [...] cord documented in this encounter Care Teams Marketing Co Op Relationship Specialty Start Date End Date Nir Paulson MD [address] [place] [address] PCP - General Family Practice 10/13/21 documented as of this encounter
--- OUTSIDE RECORDS SUMMARY | 2025-06-18 14:00 | XMS_ITS | Encounter Summary ---
Author Organization [employer] Address [address] [place] [address] Care Team Providers Care Sand Screener Name Role Phone Nir Paulson MD Primary Care Provider [phone] Reason for Referral * MRI (Routine) - Open Specialty Diagnoses / Procedures Referred By Kang t Referred To Contact Radiology Diagnoses Myelopathy Procedures MRI CERVICAL WO CONTRAST Martínez Han MD [address] [place] [address] Phone: tel: fax: [facility] [place] [address] [place] [address] Phone: tel: fax: Referral ID Status Reason Start Date Expiration Date V isits Requested Visits Authorized [id number] Open ALN View CTS to Schedule 06/18/2025 07/19/2026 1 1 * Eval and Treat (Routine) - Authorized Specialty Diagnoses / Procedures Referred By Kang t Referred To Contact Neurology Diagnoses Myelopathy Procedures MD OFFICE/OUTPATIENT ESTABLISHED MOD MDM 30 MIN MD OFFICE/OUTPATIENT NEW MODERATE MDM 45 MINUTES Martínez Han MD [address] [place] [address] Phone: tel: fax: [facility] Neurology - [place] [address] [place] [address] Phone: tel: fax: Referral ID Status Reason Start Date Expiration Date V isits Requested Visits Authorized [id number] Authorized 06/18/2025 06/18/2026 1 1 Reason for Visit * Reason Comments Consult * Eval and Treat (Routine) - Closed Specialty Diagnoses / Procedures Referred By Contac t Referred To Contact Neurosurgery Diagnoses S/P lumbar fusion Lumbosacral spondylosis without myelopathy Procedures MD OFFICE/OUTPATIENT ESTABLISHED MOD MDM 30 MIN MD OFFICE/OUTPATIENT NEW MODERATE MDM 45 MINUTES Oralia Elliott FNP [address] [facility] [place] [address] Phone: tel: fax: [facility] Neurosurgery [address] [place] [address] Phone: tel: fax: Referral ID Status Reason Start Date Expiration Date Visits Re quested Visits Authorized [id number] Closed 04/20/2025 04/20/2026 1 1 Encounter Details Date Type Department Care Team (Latest Contact Info) Description 06/18/2025 3:00 PM CDT Office Visit [facility] Neurosurgery [address] [place] [address] Martínez Han MD [address] [place] [address] Myelopathy (Primary Dx) Social History [...] worry about transportation for future doctor visits, 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 medication, etc.? No 2024 Housing Stability Answer [...] on file Legal Sex Female 3:40 AM DATA ENTRY Gender Identity Not on file Sexual Orientation [...] 3:[address] Han and [facility] may need further testing or referrals to treat you. If you are referred to another doctor or specialty that referring office will contact you within 7-10 business days. If you do not hear anything from us (or the other physician???s office) within 7-10 business days, please contact our office at [phone] and ask for Janine Cattyman so we can help ensure your referral has been arranged. If you had labs or imaging ordered at your appointment today, you may schedule this by calling centralized scheduling at [phone]. Labs: Go to [facility] ([address] [place] [address]). Enter through the Main Entrance. Admitting Department is on the 1st floor on the left and they will check you in for your labs and direct you from there or any other [facility] Lab. Imaging/Diagnostic such as MRI, CT, Ultrasound or Angiogram. Please Schedule at [phone] or youwill be contacted within 1-2 weeks. 3. If you had Imaging/Diagnostic such as MRI,CT, or Ultrasound. [facility] Central Scheduling will call you within 1-2 weeks. They will make every effort to reach you at home or cell number. However, if we request the test be delayed for extended period, then [facility] scheduling will contact you closer to the requested time frame. If you have any questions, please feel to contact [facility] [employer] Schedulingat [phone] or [phone]. Wednesday -Wednesday 7:30 am to 6pm. 4. [...] be aware that the mail system at [facility] may take up to 1 week to process prior to entering the [place] mail system. Thank You Also, Please be sure to check out [employer] as another tool to contact Venkatesh Caraballo, or Brigitte email. documented in this encounter Plan of Treatment Upcoming Encounters Date Type Department Care Team (Late st Contact Info) Description 06/25/2025 1:00 PM DATA ENTRY Appointment [facility] [employer] [place] [address] [place] [address] EarlOralia, CONSULTING MARINE ENGINEER [address] [facility] [address] [place] [address] 06/25/2025 2:00 PM DATA ENTRY Appointment [facility] Ultrasound [place] [address] [place] [address] Lima Perez, CONSTANZA [address] [place] [address] 06/25/2025 2:45 PM DATA ENTRY Appointment [facility] CT Scan [place] [address] [place] [address] Lima Perez, CONSTANZA [address] [place] [address] 07/04/2025 1:40 PM DATA ENTRY Office Visit [facility] Orthopedics [place] [address] [place] [address] Byron Rubi PA-C [address] [place] [address] 07/10/2025 1:00 PM DATA ENTRY Office Visit [facility] [address] [place] [address] Berlin Summers PA [address] [place] [address] 08/08/2025 3:30 PM DATA ENTRY Office Visit [facility] Douglas Norm [place] [address] [place] [address] Nanda Mg NP [address] [place] [address] 08/27/2025 2:20 PM DATA ENTRY Telephone Check Up [facility] Neurosurgery [address] [place] [address] Martínez Han MD [address] [place] [address] 11/07/2025 2:40 PM CDT Office Visit [facility] Family Medicine [place] [address] [address] Nir Paulson MD [address] [place] [address] 11/13/2025 2:30 PM CDT Office Visit [facility] [address] [place] [address] Alfred Tracy MD [address] [place] [address] 01/15/2026 8:45 AM CDT Office Visit [facility] Neurology - [place] [address] [place] [address] Martínez Han MD [address] [place] [address] Yaneth Bass MD [address] [place] [address] Scheduled Orders Name Type Priority [...] cord documented in this encounter Care Teams Sand Screener Relationship Specialty Start Date End Date Nir Paulson MD [address] [place] [address] PCP - General Family Practice 10/13/21 documented as of this encounter
--- OUTSIDE RECORDS SUMMARY | 2025-06-19 12:20 | XMS_ITS | Encounter Summary ---
Author Organization [facility] Address 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 CVID (common variable immunodeficiency) Productive cough Procedures RESPIRATORY PATHOGEN PCR PANEL Nir Paulson MD [address] [address] Phone: tel: fax: [facility] Medicine [address] [address] Phone: tel: fax: Referral ID Status Reason Start Date Expiration Date Visits Re quested Visits Authorized [id number] Closed 06/19/2025 07/20/2026 1 1 Reason for Visit * Reason Comments Follow Up Respiratory symptoms for 6-8 months Cough Cough x months; prod uctive dark green Shortness of Breath Using nebulizer and inhaler but feels she cannot take deep breath Wheezing Needs Orders Written Nebulizer; previous is 15 years old; [facility] * Laboratory Services (Routine) - Closed Specialty Diagnoses / Procedures Referred By Kang owens Referred To Contact Family Practice Diagnoses Severe persistent asthma with acute exacerbation (CMS/HCC) 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 CVID (common variable immunodeficiency) Productive cough Procedures RESPIRATORY PATHOGEN PCR PANEL Nir Paulson MD [address] [address] Phone: tel: fax: [facility] [address] [address] Phone: tel: fax: Referral ID Status Reason Start Date Expiration Date Visits Re quested Visits Authorized [id number] Closed 06/19/2025 07/20/2026 1 1 Encounter Details Date Type Department Care Team (Late st Contact Info) Description 06/19/2025 1:20 PM CDT Office Visit [facility] [address] [address] Nir Paulson MD [address] [address] Productive cough (Primary Dx); Severe persistent asthma with acute exacerbation (CMS/HCC); FPC (current) use of systemic steroids; CVID (common variable immunodeficiency) Social History Tobacco Use Types Packs/Day Years [...] worry about transportation for future doctor visits, order picker medication, etc.? No 2024 Housing Stability [...] on file Legal Sex Female 3:40 AM MAGNETIC TESTER Gender Identity Not on file Sexual Orientation Not on file documented as of this encounter Last Filed Vital Signs Vital Sign Reading Time Taken Comments Blood Pressure 138/86 06/19/2025 1:28 PM CDT Pulse 114 06/19/2025 1:28 PM CDT Temperature 36.8 C (98.2 F) 06/19/2025 1:28 PM CDT Respiratory Rate 22 06/19/2025 1:28 PM CDT Oxygen Saturation 96% 06/19/2025 1:28 PM CDT Inhaled Oxygen Concentration - - Weight 91.2 kg (201 lb) 06/19/2025 1:28 PM CDT Height 170.2 cm (5' 7 ) 06/19/2025 1:28 PM CDT Body Mass Index 31.48 06/19/2025 1:28 PM CDT documented in this encounter Progress Notes * Nir Paulson MD - 06/19/2025 2:03 PM CDT [facility] 06/19/2025 Subjective: Cathi Smith is a 55 y.o. female who comes today for evaluation of Follow Up (Respiratory symptoms for 6-8 months), Cough (Cough x months; productive dark green), Shortness of Breath (Using nebulizer and inhaler but feels she cannot take deep breath), Wheezing, and Needs Orders Written (Nebulizer; previous is 13 years old; [facility]) . History of Present Illness The patient presents for evaluation of a persistent cough. She has been experiencing recurrent infections since September 2024, coinciding with the initiation of IgG infusions. She reports that her pneumonia did not resolve completely. However, she noticed some improvement after applying Mentholatum to her muscles 4 to 5 days ago. Currently, she is experiencing fatigue and shortness of breath, even with minimal exertion such as walking across a room. She also reports difficulty in deep inhalation. She has been producing thick green sputum for the past 3days. She has been under the care of an allergy and asthma specialist, Dr. Parker, who also administers her IgG infusions. Her current medications include neb levalbuterol, Xopenex as a rescue inhaler, Spiriva twice daily, and Dulera twice daily. She has not required the use of her rescue inhaler until this recent episode. She owns a nebulizer machine that is over 20 years old. She has undergone several courses of antibiotics for UTI and upper respiratory infections since September 2024, with the most recent course of Augmentin completed a month ago. She had a CT scan 2 weeks ago for chest pain and fractured ribs. Patient has history of osteoporosis related to long-term corticosteroid use Review of Systems Constitutional: Positive for malaise/fatigue. Negative for fever. HENT: Positive for congestion. Respiratory: Positive for cough, sputum production and shortness of breath. Cardiovascular: Negative for chest pain. Gastrointestinal: Negative for abdominal pain. Skin: Negative for rash. Neurological: Negative for weakness. Objective: Vitals: 06/19/25 1328 Temp: 98.2 ??F (36.8 ??C) Pulse: (!) 114 BP: 138/86 Resp: 22 SpO2: 96% Physical Exam Vitals and nursing note reviewed. Constitutional: General: She is not in acute distress. Appearance: Normal appearance. She is ill-appearing. HENT: Head: Normocephalic and atraumatic. Eyes: Conjunctiva/sclera: Conjunctivae normal. Cardiovascular: Rate and Rhythm: Normal rate and regular rhythm. Pulmonary: Effort: Pulmonary effort is normal. Breath sounds: Rhonchi (Left lower lobe) present. Abdominal: Palpations: Abdomen is soft. Musculoskeletal: Cervical back: Neck supple. Skin: Findings: No rash. Neurological: Mental Status: She is alert and oriented to person, place, and time. Mental status is at baseline. Psychiatric: Mood and Affect: Mood normal. Behavior: Behavior normal. Past medical history, surgical history and social history reviewed. Past Medical History: Diagnosis Date Asthma Blood in urine Cyst, thyroid 06/30/2016 Diabetes mellitus 2014 States metformin stopped 11/2017 by PCP Headache(784.0) per pt HTN (hypertension) Inflammatory arthritis Injury of back Arthritis Injury of face and neck age 17 Joint pain Migraines Motion sickness Post-operative nausea and vomiting RA (rheumatoid arthritis) 2010 Procedures Assessment/Plan: ICD-10-CM ICD-9-CM 1. Productive cough R05.8 786.2 SPUTUM CULTURE WITH GRAM STAIN RESPIRATORY PATHOGEN PCR PANEL XR CHEST PA AND LATERAL 2 VW 2. Severe persistent asthma with acute exacerbation ([facility]) J45.51 493.92 SPUTUM CULTURE WITH GRAM STAIN RESPIRATORY PATHOGEN PCR PANEL XR CHEST PA AND LATERAL 2 VW nebulizer 3. FPC (current) use of systemic steroids Z79.52 V58.65 SPUTUM CULTURE WITH GRAM STAIN RESPIRATORY PATHOGEN PCR PANEL 4. CVID (common variable immunodeficiency) D83.9 279.06 SPUTUM CULTURE WITH GRAM STAIN RESPIRATORY PATHOGEN PCR PANEL Assessment & Plan 1. Lower respiratory infection - The patient has been experiencing a persistent cough for the past 4-5 days - She reports bringing up thick green mucus for the last 3 days. - A sputum culture and a respiratory pathogen panel will be conducted to identify any potential pathogens. A repeat chest x-ray will be ordered to assess for any new infections that may have developed over the past 2 weeks. - An antibiotic prescription will be sent to her pharmacy. A nebulizer machine will be ordered for her use. If symptoms persist, a referral to a customs appraiser will be considered. 2. Suspected osteoporosis: - Given her history of steroid use, she likely has osteoporosis, which could explain the ease of rib fractures. Nir Paulson MD The author of this note, patient (or authorized technical sales representative), and all other persons present consent to the audio recording of this visit for charting documentation purposes. This note was automatically generated by a Generative AI technology (Burt), reviewed, edited, and finalized by Nir Paulson MD. documented in this encounter Plan of Treatment Upcoming Encounters Date Type Department Care Team (Late st Contact Info) Description 06/25/2025 1:00 PM MAGNETIC TESTER Appointment [facility] [place] [address] [phone] Earl, NEYDA Estrada [address] [place] [phone] 06/25/2025 2:00 PM MAGNETIC TESTER [facility] [place] [address] [place] [address] Lima Perez, [address]STAN[address] [place] [phone] 06/25/2025 2:45 PM MAGNETIC TESTER Appointment [facility] CT Scan [place] [address] [place] [address] Lima Perez NP [address] [place] [address] 07/04/2025 1:40 PM MAGNETIC TESTER Office Visit [facility] Orthopedics [place] [address] [place] [address] Byron Rubi PA-C [address] [place] [address] 07/10/2025 1:00 PM MAGNETIC TESTER Office Visit [facility] [address] [place] [address] Berlin Summers PA [address] [place] [address] 08/08/2025 3:30 PM MAGNETIC TESTER Office Visit [facility] Douglas Zheng [place] [address] [place] [address] Nanda Mg NP [address] [place] [address] 08/27/2025 2:20 PM MAGNETIC TESTER Telephone Check Up [facility] Neurosurgery [address] [place] [address] [place] [address] Martínez Han MD [address] [place] [address] 11/07/2025 2:40 PM CDT Office Visit [facility] Medicine [place] [address] [address] Nir Paulson MD [address] [address] 11/13/2025 2:30 PM CDT Office Visit [facility] Endocrinology [facility] [address] [place] [address] Alfred Tracy MD [address] [place] [address] 01/15/2026 8:45 AM CDT Office Visit [facility] Neurology - [place] [address] [place] [address] Martínez Han MD [address] [place] [address] Yaneth Bass MD [address] [place] [address] Scheduled Orders Name Type Priority Associated Diagnoses Orde r Schedule SPUTUM CULTURE WITH GRAM STAIN Microbiology Routine Severe persistent asthma with acute exacerbation (CMS/HCC) Productive cough Expected: 06/26/2025 (Approximate), Expires: 06/19/2026 documented as of this encounter Procedures Procedure Name Priority Date/Time Associated Diagnosis Comments RESPIRATORY PATHOGEN PCR PANEL Routine 06/20/2025 2:11 PM CDT Severe persistent asthma with acute exacerbation (CMS/HCC) FPC (current) use of systemic steroids CVID (common variable immunodeficiency) Productive cough documented in this encounter Results * (ABNORMAL) RESPIRATORY PATHOGEN PCR PANEL (06/20/2025 2:11 PM CDT) COVID-19 PCR NOT DETECTED Not Detected 06/20/2025 6:41 PM CDT [facility] Parainfluenza 2 by PCR DETECTED(A) Not Detected 06/20/2025 6:41 PM CDT [facility] Upper Respiratory ENTIRE NASOPHARYNX / Unknown Collection / Unknown 06/20/2025 2:11 PM CDT 06/20/2025 4:43 PM CDT Narrative [facility] - 06/20/2025 6:41 PM CDT The Film Array Respiratory Panel (RP2.1) is a multiplex nucleic acid detection test for 22 targets. Viruses: Adenovirus Coronavirus HKU1, NL63, 229E, and OC43 COVID-19/Severe Acute Respiratory Syndrome Coronavirus 2 Influenza A with the following subtypes: H1, H1-2009, and H3 Influenza B Human Metapneumovirus Parainfluenza virus 1, 2, 3, and 4 Respiratory Syncytial virus (RSV) Rhinovirus/Enterovirus (cannot differentiate due to genetic similarities) Bacteria: Bordetella pertussis Bordetella parapertussis Chlamydophila pneumoniae Mycoplasma pneumoniae Nir Paulson MD MICROBIOLOGY - GENERAL OR DERABLES Final Result [facility] CLIA # [id number] [address] [place] [address] * XR CHEST PA AND LATERAL 2 VW (06/19/2025 2:57 PM CDT) Anatomical Region Laterality Modality Chest Computed Radiogr aphy 06/19/2025 2:57 PM CDT Impressions 06/20/2025 11:06 AM CDT IMPRESSION: Small left pleural effusion with associated left basilar atelectasis or airspace disease. Narrative 06/20/2025 11:06 AM CDT Exam: XR CHEST PA AND LATERAL 2 VW Date/Time of Exam: 06/19/2025 2:57 PM Reason For Exam: See Diagnosis. Diagnosis: Severe persistent asthma with acute exacerbation (CMS/HCC); Productive cough. Findings: The cardiomediastinal silhouette is normal in size and contour. The lung volumes are mildly increased. There is a small left pleural effusion with associated atelectasis or airspace disease. Bilateral rib fractures are redemonstrated. Kyphosis is noted in the upper thoracic spine with associated compression fractures. Procedure Note Gume Levin MD - 06/20/2025 Exam: XR CHEST PA AND LATERAL 2 VW Date/Time of Exam: 06/19/2025 2:57 PM Reason For Exam: See Diagnosis. Diagnosis: Severe persistent asthma with acute exacerbation (CMS/HCC); Productive cough. Findings: The cardiomediastinal silhouette is normal in size and contour. The lung volumes are mildly increased. There is a small left pleural effusion with associated atelectasis or airspace disease. Bilateral rib fractures are redemonstrated. Kyphosis is noted in the upper thoracic spine with associated compression fractures. IMPRESSION: Small left pleural effusion with associated left basilar atelectasis or airspace disease. Nir Paulson MD DIAGNOSTIC IMAGING ORDERA BLES Final Result documented in this encounter Visit Diagnoses Diagnosis Productive cough- Primary Cough Severe persistent asthma with acute exacerbation (CMS/HCC) Unspecified asthma, with exacerbation FPC (current) use of systemic steroids CVID (common variable immunodeficiency) Common variable immunodeficiency Severe persistent asthma with acute exacerbation (CMS/HCC) Unspecified asthma, with exacerbation Productive cough Cough documented in this encounter Additional Health Concerns Infection Onset Date Last Indicated Resolved Time R/O Respiratory 06/19/2025 06/20/2025 06/20/2025 6 :41 PM CDT documented as of this encounter Care Teams Paradichlorobenzene Machine Operator Relationship Specialty Start Date End Date Nir Paulson MD [address] [facility] [place] [address] PCP - General Family Practice 10/13/21 documented as of this encounter
--- OUTSIDE RECORDS SUMMARY | 2025-06-19 12:20 | XMS_ITS | Encounter Summary ---
Author Organization [facility] Address 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 CVID (common variable immunodeficiency) Productive cough Procedures RESPIRATORY PATHOGEN PCR PANEL Nir Paulson MD [address] [address] Phone: tel: fax: [facility] Medicine [address] [address] Phone: tel: fax: Referral ID Status Reason Start Date Expiration Date Visits Re quested Visits Authorized [id number] Closed 06/19/2025 07/20/2026 1 1 Reason for [...] Severe persistent asthma with acute exacerbation (CMS/HCC) 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 CVID (common variable immunodeficiency) Productive cough Procedures RESPIRATORY PATHOGEN PCR PANEL Nir Paulson MD [address] [address] Phone: tel: fax: [facility] [address] [address] Phone: tel: fax: Referral ID Status Reason Start Date Expiration Date Visits Re quested Visits Authorized [id number] Closed 06/19/2025 07/20/2026 1 1 Encounter Details Date Type Department Care Team (Late st Contact Info) Description 06/19/2025 1:20 PM CDT Office Visit [facility] [address] [address] Nir Paulson MD [address] [address] Productive cough (Primary Dx); Severe persistent asthma with acute exacerbation (CMS/HCC); MCFP (current) use of systemic steroids; CVID (common [...] worry about transportation for future doctor visits, nut picker medication, etc.? 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 Severe persistent asthma with acute exacerbation ([facility]) J45.51 493.92 SPUTUM CULTURE WITH GRAM STAIN RESPIRATORY PATHOGEN PCR PANEL XR CHEST PA AND LATERAL 2 VW nebulizer 3. MCFP (current) use of systemic steroids Z79.52 V58.65 [...] If symptoms persist, a referral to a printed circuit boards laminator will be considered. 2. Suspected osteoporosis: - Given her history of steroid use, she likely has osteoporosis, which could explain the ease of rib fractures. Nir Paulson MD The author of this note, patient (or authorized retail service representative), and all other persons present consent to the audio recording of this visit for charting documentation purposes. This note was automatically generated by a Generative AI technology (Regenerate), reviewed, edited, and finalized by Nir Paulson MD. documented in this encounter Plan of Treatment Upcoming Encounters Date Type Department Care Team (Late st Contact Info) Description 06/25/2025 1:00 PM STATISTICAL MACHINE SERVICER Appointment [facility] [place] [address] [phone] Earl, NEYDA Estrada [address] [place] [address] 06/25/2025 2:00 PM STATISTICAL MACHINE SERVICER [facility] [place] [address] [place] [address] Lima Perez, CONSTANZA [address] [place] [phone] 06/25/2025 2:45 PM STATISTICAL MACHINE SERVICER Appointment [facility] CT Scan [place] [address] [place] [address] Lima Perez NP [address] [place] [address] 07/04/2025 1:40 PM STATISTICAL MACHINE SERVICER Office Visit [facility] Orthopedics [place] [address] [place] [address] Byron Rubi PA-C [address] [place] [address] 07/10/2025 1:00 PM STATISTICAL MACHINE SERVICER Office Visit [facility] [address] [place] [address] Berlin Summers PA [address] [place] [address] 08/08/2025 3:30 PM STATISTICAL MACHINE SERVICER Office Visit [facility] Douglas Zheng [place] [address] [place] [address] Nanda Mg NP [address] [place] [address] 08/27/2025 2:20 PM STATISTICAL MACHINE SERVICER Telephone Check Up [facility] Neurosurgery [address] [place] [address] [place] [address] Martínez Han MD [address] [place] [address] 11/07/2025 2:40 PM CDT Office Visit [facility] Medicine [place] [address] [address] Nir Paulson MD [address] [address] 11/13/2025 2:30 PM CDT Office Visit [facility] Endocrinology [facility] [address] [place] [address] Alfred Tracy MD [address] [place] [address] 01/15/2026 8:45 AM CDT Office Visit [facility] Neurology - [place] [address] [place] [address] Martínez Han MD [address] [place] [address] Yaneth Bass MD [address] [place] [address] Scheduled Orders Name Type Priority Associated Diagnoses Orde r Schedule SPUTUM CULTURE WITH GRAM STAIN Microbiology Routine Severe persistent asthma with acute exacerbation (CMS/HCC) Productive cough Expected: 06/26/2025 (Approximate), Expires: 06/19/2026 documented as of this encounter Procedures Procedure Name Priority Date/Time Associated Diagnosis Comments RESPIRATORY PATHOGEN PCR PANEL Routine 06/20/2025 2:11 PM CDT Severe persistent asthma with acute exacerbation (CMS/HCC) MCFP (current) use of systemic steroids CVID (common variable immunodeficiency) Productive cough documented in this encounter Results * (ABNORMAL) RESPIRATORY PATHOGEN PCR PANEL (06/20/2025 2:11 PM CDT) COVID-19 PCR NOT DETECTED Not Detected 06/20/2025 6:41 PM CDT [facility] Parainfluenza 2 by PCR DETECTED(A) Not Detected 06/20/2025 6:41 PM CDT [facility] Upper Respiratory ENTIRE NASOPHARYNX / Unknown Collection / Unknown 06/20/2025 2:11 PM CDT 06/20/2025 4:43 PM CDT Narrative [facility] - 06/20/2025 6:41 PM CDT The Film [...] MICROBIOLOGY - GENERAL OR DERABLES Final Result [facility] CLIA # [id number] [address] [place] [id number] * XR CHEST PA AND LATERAL 2 [...] acute exacerbation (CMS/HCC) Unspecified asthma, with exacerbation MCFP (current) use of systemic steroids CVID (common variable immunodeficiency) Common variable immunodeficiency Severe persistent asthma with acute exacerbation (CMS/HCC) Unspecified asthma, with exacerbation Productive cough Cough documented in this encounter Additional Health Concerns Infection Onset Date Last Indicated Resolved Time R/O Respiratory 06/19/2025 06/20/2025 06/20/2025 6 :41 PM CDT documented as of this encounter Care Teams Formal Service Waiter Relationship Specialty Start Date End Date Nir Paulson MD [address] [facility] [place] [address] PCP - General Family Practice 10/13/21 documented as of this encounter
--- OUTSIDE RECORDS SUMMARY | 2025-06-19 12:20 | XMS_ITS | Encounter Summary ---
Author Organization [facility] Address [address] [place] [id number] Care Team Providers Care Data Warehousing Engineer Name Role Phone Nir Paulson MD Primary Care Provider [phone] [phone] Reason for Referral * Laboratory Services (Routine) - Closed Specialty Diagnoses / Procedures Referred By Kang owens Referred To Contact Family Practice Diagnoses Severe persistent asthma with acute exacerbation (CMS/[facility]) gas adjuster (current) use of systemic steroids CVID (common variable immunodeficiency) Productive cough Procedures RESPIRATORY PATHOGEN PCR PANEL Nir Paulson MD [address] [address] Phone: tel: fax: [facility] Medicine [address] [address] Phone: tel: fax: Referral ID Status Reason Start Date Expiration Date Visits Re quested Visits Authorized [id number] Closed 06/19/2025 07/20/2026 1 1 Reason for [...] Severe persistent asthma with acute exacerbation (CMS/HCC) gas adjuster (current) use of systemic steroids CVID (common variable immunodeficiency) Productive cough Procedures RESPIRATORY PATHOGEN PCR PANEL Nir Paulson MD [address] [address] Phone: tel: fax: [facility] [address] [address] Phone: tel: fax: Referral ID Status Reason Start Date Expiration Date Visits Re quested Visits Authorized [id number] Closed 06/19/2025 07/20/2026 1 1 Encounter Details Date Type Department Care Team (Late st Contact Info) Description 06/19/2025 1:20 PM CDT Office Visit [facility] [address] [address] Nir Paulson MD [address] [address] Productive cough (Primary Dx); Severe persistent asthma with acute exacerbation (CMS/HCC); jail (current) use of systemic steroids; CVID (common [...] worry about transportation for future doctor visits, bean picker machine operator medication, etc.? No 2024 Housing Stability Answer [...] on file Legal Sex Female 3:40 AM RHINESTONE SETTER Gender Identity Not on file Sexual Orientation [...] Paulson MD - 06/19/2025 2:[address] [facility] 06/19/2025 Subjective: Cathi Smith is [...] 2. Severe persistent asthma with acute exacerbation ([facility]) J45.51 493.92 SPUTUM CULTURE WITH GRAM STAIN RESPIRATORY PATHOGEN PCR PANEL XR CHEST PA AND LATERAL 2 VW nebulizer 3. jail (current) use of systemic steroids Z79.52 V58.65 [...] If symptoms persist, a referral to a diversity intern will be considered. 2. Suspected osteoporosis: - Given her history of steroid use, she likely has osteoporosis, which could explain the ease of rib fractures. Nir Paulson MD The author of this note, patient (or authorized employee's representative), and all other persons present consent to the audio recording of this visit for charting documentation purposes. This note was automatically generated by a Generative AI technology (Pokelabo), reviewed, edited, and finalized by Nir Paulson MD. documented in this encounter Plan of Treatment Upcoming Encounters Date Type Department Care Team (Late st Contact Info) Description 06/25/2025 1:00 PM RHINESTONE SETTER Appointment [facility] play140 [place] [address] [phone] Earl, NEYDA Estrada [address] [place] [phone] 06/25/2025 2:00 PM RHINESTONE SETTER [facility] [place] [address] [place] [address] Lima Perez, CONSTANZA [address] [place] [phone] 06/25/2025 2:45 PM RHINESTONE SETTER Appointment [facility] CT Scan [place] [address] [place] [address] Lima Perez NP [address] [place] [address] 07/04/2025 1:40 PM RHINESTONE SETTER Office Visit [facility] Orthopedics [place] [address] [place] [address] Byron Rubi PA-C [address] [place] [address] 07/10/2025 1:00 PM RHINESTONE SETTER Office Visit [facility] [address] [place] [address] Berlin Summers PA [address] [place] [address] 08/08/2025 3:30 PM RHINESTONE SETTER Office Visit [facility] Douglas Zheng [place] [address] [place] [address] Nanda Mg NP [address] [place] [address] 08/27/2025 2:20 PM RHINESTONE SETTER Telephone Check Up [facility] Neurosurgery [address] [place] [address] [place] [address] Martínez Han MD [address] [place] [address] 11/07/2025 2:40 PM CDT Office Visit [facility] Medicine [place] [address] [address] Nir Paulson MD [address] [address] 11/13/2025 2:30 PM CDT Office Visit [facility] Endocrinology [facility] [address] [place] [address] Alfred Tracy MD [address] [place] [address] 01/15/2026 8:45 AM CDT Office Visit [facility] Neurology - [place] [address] [place] [address] Martínez Han MD [address] [place] [address] [place] [address] Yaneth Bass MD [address] [place] [address] Scheduled Orders Name Type Priority Associated Diagnoses Orde r Schedule SPUTUM CULTURE WITH GRAM STAIN Microbiology Routine Severe persistent asthma with acute exacerbation (CMS/HCC) Productive cough Expected: 06/26/2025 (Approximate), Expires: 06/19/2026 documented as of this encounter Procedures Procedure Name Priority Date/Time Associated Diagnosis Comments RESPIRATORY PATHOGEN PCR PANEL Routine 06/20/2025 2:11 PM CDT Severe persistent asthma with acute exacerbation (CMS/HCC) jail (current) use of systemic steroids CVID (common variable immunodeficiency) Productive cough documented in this encounter Results * (ABNORMAL) RESPIRATORY PATHOGEN PCR PANEL (06/20/2025 2:11 PM CDT) COVID-19 PCR NOT DETECTED Not Detected 06/20/2025 6:41 PM CDT [facility] Parainfluenza 2 by PCR DETECTED(A) Not Detected 06/20/2025 6:41 PM CDT [facility] Upper Respiratory ENTIRE NASOPHARYNX / Unknown Collection / Unknown 06/20/2025 2:11 PM CDT 06/20/2025 4:43 PM CDT Narrative [facility] - 06/20/2025 6:41 PM CDT The Film [...] MICROBIOLOGY - GENERAL OR DERABLES Final Result [facility] CLIA # [id number] [address] [place] [id number] * XR CHEST PA AND LATERAL 2 [...] acute exacerbation (CMS/HCC) Unspecified asthma, with exacerbation jail (current) use of systemic steroids CVID (common variable immunodeficiency) Common variable immunodeficiency Severe persistent asthma with acute exacerbation (CMS/HCC) Unspecified asthma, with exacerbation Productive cough Cough documented in this encounter Additional Health Concerns Infection Onset Date Last Indicated Resolved Time R/O Respiratory 06/19/2025 06/20/2025 06/20/2025 6 :41 PM CDT documented as of this encounter Care Teams Data Warehousing Engineer Relationship Specialty Start Date End Date Nir Paulson MD [address] [facility] [place] [address] PCP - General Family Practice 10/13/21 documented as of this encounter
--- OUTSIDE RECORDS SUMMARY | 2025-06-19 13:40 | XMS_ITS | Encounter Summary ---
Author Organization [facility] Address [address] [place] [address] Care Team Providers Care Fresh Work Inspector Name Role Phone Nir Paulson MD Primary Care Provider [phone] [phone] Encounter Details Date Type Department Care Team (Latest Contact Info) Description 06/19/2025 2:40 PM CDT - 06/19/2025 11:59 PM CDT Hospital Encounter [facility] [address] [phone] Nir Paulson MD 104 [address] [facility] 60 [place] [address] Discharge Disposition: Home or Self Care Social History Tobacco Use Types Packs/Day Years [...] worry about transportation for future doctor visits, peanut picker medication, etc.? No 2024 Housing Stability [...] on file Legal Sex Female 3:40 AM MERCHANDISING MANAGER Gender Identity Not on file Sexual Orientation Not on file documented as of this encounter Medications at Time of Discharge doxycycline hyclate (VIBRAMYCIN) 100 mg tablet Take 1 Tablet (100 mg) by mouth 2 times daily for 10 days. 20 Tablet 5 06/29/20 25 nebulizerIndicati ons:Severe persistent asthma with acute exacerbation ([facility]) Length of need 99 months Nebulizer with compressor, Kit: Disposable Nebulizer Kit, 2 per month, filters , areosol mask: Yes. Name of Medication: Levalbuterol 1 Each 5 hydrocortisone (CORTEF) 10 mg tablet Take 1 Tablet (10 mg) by mouth 2 times daily. 180 Tablet 1 5 naproxen (NAPROSYN) 500 mg tablet Take 1 Tablet (500 mg) by mouth 2 times daily with meals. 60 Tablet 1 5 losartan (COZAAR) 100 mg tabletIndications :Benign hypertension TAKE 1 TABLET BY MOUTH EVERY DAY 100 Tablet 1 5 methocarbamoL (ROBAXIN) 750 mg tabletIndications :Seronegative rheumatoid arthritis ([facility]) TAKE 1-2 TABLETS (750-1,500 MG) BY MOUTH 3 TIMES DAILY 600 Tablet 1 5 metoprolol succinate (TOPROL XL) 25 mg Extended Release 24 hour tabletIndications :Benign hypertension TAKE 1 TABLET (25 MG) BY MOUTH DAILY. TAKE WITH 50 MG TABLET FOR 75 MG DOSE TOTAL 100 Tablet 1 5 metoprolol succinate (TOPROL XL) 50 mg Extended Release 24 hour tabletIndications :Benign hypertension TAKE 1 TABLET BY MOUTH DAILY. TAKE WITH 25 MG TABLET FOR 75 MG DOSE TOTAL 100 Tablet 1 5 morphine (MS CONTIN) 60 mg Controlled Release tablet TAKE 1 TABLET BY MOUTH ONCE EVERY 12-24 HOURS FOR EXTENDED PAIN RELIEF 5 furosemide (Lasix) 20 mg tabletIndications :Bilateral edema of lower extremity Take 1 Tablet (20 mg) by mouth 1 time daily as needed (swelling). 90 Tablet 2 5 predniSONE (DELTASONE) 10 mg tabletIndications :Rib pain on left side Take 4 tablets for 3 days then 3 tablets for 3 days then 2 tablets for 3 days and 1 tablet for 3 days 30 Tablet 5 lidocaine (LIDODERM) 5 % Adhesive Patch, MedicatedIndicati ons:Rib pain on left side Apply 1 Patch to affected area every 24 hours. 30 Patch 5 promethazine (PHENERGAN) 25 mg tabletIndications :Nausea TAKE 1 TABLET BY MOUTH EVERY 6 HOURS NEEDED FOR NAUSEA AND VOMITING 90 Tablet 5 levalbuterol HFA (XOPENEX HFA) 45 mcg/Actuation HFA Aerosol InhalerIndication s:Moderate persistent asthma without complication Take 1-2 Puffs by inhalation every 4 hours as needed for Shortness of Breath. 15 Gram 1 5 metoprolol tartrate (LOPRESSOR) 25 mg tabletIndications :Chronic migraine without aura, intractable, without status migrainosus TAKE 1 TABLET BY MOUTH EVERY DAY NEEDED FOR MIGRAINE 30 Tablet 6 5 mupirocin (BACTROBAN) 2 % OintmentIndicatio ns:Skin ulcer of toe of left foot, limited to breakdown of skin (CMS/HCC) Apply to affected area daily. 15 Gram 5 spironolactone (ALDACTONE) 50 mg tabletIndications :Benign hypertension Take 1 Tablet (50 mg) by mouth 2 times daily. 200 Tablet 3 5 EnbreL 50 mg/mL (1 mL) Syringe INJECT ONE syringe UNDER THE SKIN EVERY SEVEN DAYS 5 cloNIDine HCL (CATAPRES) 0.1 mg tabletIndications :HTN (hypertension), benign TAKE 1 TABLET BY MOUTH IF BP IS >170/100 ONLY NEEDED 20 Tablet 5 traMADol (ULTRAM) 50 mg tablet take 1 tablet by mouth three times daily as needed for pain 5 amLODIPine (NORVASC) 10 mg tabletIndications :HTN (hypertension), benign Take 1 Tablet (10 mg) by mouth daily. 90 Tablet 3 5 conjugated estrogens (Premarin) 0.625 mg/gram vaginal creamIndications: Post-menopausal INSERT 0.5 GRAM VAGINALLY 2 TIMES A WEEK 30 Gram 11 4 levalbuterol (XOPENEX) 0.63 mg/3 mL Solution for NebulizationIndic ations:Moderate persistent asthma without complication,Mild intermittent asthma, unspecified whether complicated Take 3 mL (0.63 mg) by inhalation every 8 hours as needed for Shortness of Breath or Wheezing. USE 1 VIAL VIA NEBULIZER EVERY 6 HOURS NEEDED FOR SHORTNESS OF BREATH 90 mL 5 4 mometasone-formot judith (Dulera) 200-5 mcg/actuation inhaler Take 2 Puffs by inhalation 2 times daily. 13 Gram 11 4 metFORMIN (GLUCOPHAGE) 500 mg tabletIndications :Controlled type 2 diabetes mellitus without complication, without long-term current use of insulin Take 1 Tablet (500 mg) by mouth 2 times daily with meals. 180 Tablet 4 tiotropium (SPIRIVA RESPIMAT) 1.25 mcg/actuation Mist Take 2 Puffs by inhalation daily. During harder asthma seasons, and interventionally for acute respiratory infections 4 Gram 5 4 oxyCODONE (ROXICODONE) 10 mg tablet TAKE ONE TABLET BY MOUTH TWICE DAILY FOR breakthrough pain 4 morphine (MS CONTIN) 30 mg Controlled Release tablet TAKE ONE TABLET BY MOUTH TWICE DAILY FOR EXTENDED PAIN RELIEF 4 Cholecalciferol, Vitamin D3, (VITAMIN D3) 10 mcg (400 unit) capsule Take 50 mcg by mouth daily. 0 EpiPen 2-Rudy 0.3 mg/0.3 mL Auto-Injector TURMERIC ORAL Turmeric NITRIC ACID, BULK, MISC as directed HALLIE, BULK, MISC as directed azelastine (ASTELIN) 137 mcg/actuation nasal spray USE 1 TO 2 SPRAYS IN EACH NOSTRIL EVERY 12 HOURS NEEDED FOR CONGESTION 30 mL 5 2 famotidine (PEPCID) 40 mg tabletIndications :Gastroesophageal reflux disease without esophagitis TAKE 1 TABLET(40 MG) BY MOUTH TWICE DAILY 180 Tablet 1 2 cetirizine (ZyrTEC) 10 mg tablet Take 30 mg by mouth acetaminophen (TYLENOL) 500 mg tablet 1-2 tabs fluticasone propionate (FLONASE) 50 mcg/spray [place], Suspension nasal inhaler SHAKE LIQUID AND USE 1 TO 2 SPRAYS IN EACH NOSTRIL DAILY 16 Gram 1 multivitamin (DAILY-ART) tablet Take 1 Tablet by mouth daily. levocetirizine (XYZAL) 5 mg tablet Take 5 mg by mouth late in the day. 1 documented as of this encounter Plan of Treatment Upcoming Encounters Date Type Department Care Team (Late st Contact Info) Description 06/25/2025 1:00 PM MERCHANDISING MANAGER Appointment [facility] Services [place] [address] [phone] Oralia Elliott, SHEET METAL SHOP SUPERVISOR [address] [phone] 06/25/2025 2:00 PM MERCHANDISING MANAGER Appointment [facility] Ultrasound [place] [address] [address] Lima Perez NP [address] [place] [phone] 06/25/2025 2:45 PM MERCHANDISING MANAGER Appointment [facility] CT Scan [place] [address] [address] Lima Perez NP [address] [place] [address] 07/04/2025 1:40 PM MERCHANDISING MANAGER Office Visit [facility] Orthopedics [place] [address] [facility] [address] [place] [address] Byron Rubi PA-C [address] [place] [address] 07/10/2025 1:00 PM MERCHANDISING MANAGER Office Visit [facility] [address] [place] [address] Berlin Summers PA [address] [place] [address] 08/08/2025 3:30 PM MERCHANDISING MANAGER Office Visit [facility] Douglas Zheng [place] [address] [place] [address] Nanda Mg NP [address] [place] [address] 08/27/2025 2:20 PM MERCHANDISING MANAGER Telephone Check Up [facility] Neurosurgery [address] [place] [address] [place] [address] [place] [address] Martínez Han MD [address] [place] [address] [place] [address] 11/07/2025 2:40 PM CDT Office Visit [facility] Family Medicine [place] [address] [address] Nir Paulson MD [address] [address] 11/13/2025 2:30 PM CDT Office Visit [facility] Endocrinology [facility] [address] [place] [address] Alfred Tracy MD [address] [place] [address] 01/15/2026 8:45 AM CDT Office Visit [facility] Neurology - [place] [address] [place] [phone] Martínez Han MD [address] [place] [address] [place] [address] Yaneth Bass MD [address] [place] [address] documented as of this encounter Procedures Procedure Name Priority Date/Time Associated Diagnosis Comments XR CHEST PA AND LATERAL 2 VW Routine 06/19/2025 2:57 PM CDT Severe persistent asthma with acute exacerbation (CMS/HCC) Productive cough documented in this encounter Results * XR CHEST PA AND LATERAL 2 [...] documented in this encounter Visit Diagnoses Diagnosis Severe persistent asthma with acute exacerbation ([facility]) Unspecified asthma, with exacerbation Productive cough Cough documented in this encounter Additional Health Concerns Infection Onset Date Last Indicated Resolved Time R/O Respiratory 06/19/2025 06/20/2025 06/20/2025 6 :41 PM CDT documented as of this encounter Care Teams Fresh Work Inspector Relationship Specialty Start Date End Date Nir Paulson MD [address] [place] [address] PCP - General Family Practice 10/13/21 documented as of this encounter
--- OUTSIDE RECORDS SUMMARY | 2025-06-19 13:40 | XMS_ITS | Encounter Summary ---
Author Organization [facility] Address [address] [place] [address] Care Team Providers Care Second Worker Name Role Phone Nir Paulson MD Primary Care Provider [phone] Encounter Details Date Type Department Care Team (Latest Contact Info) Description 06/19/2025 2:40 PM CDT - 06/19/2025 11:59 PM CDT Hospital Encounter [facility] [employer] [facility] [address] [phone] Nir Paulson MD [address] [facility] [address] [place] [address] Discharge Disposition: Home or Self [...] on file Legal Sex Female 3:40 AM DIRECTOR OF STRATEGIC COMMUNICATIONS Gender Identity Not on file Sexual Orientation Not on file documented as of this encounter Medications at Time of Discharge doxycycline hyclate (VIBRAMYCIN) 100 mg tablet Take 1 Tablet (100 mg) by mouth 2 times daily for 10 days. 20 Tablet 5 06/29/20 25 nebulizerIndicati ons:Severe persistent asthma with acute exacerbation ([facility]) Length of need 99 months Nebulizer with [...] (ROBAXIN) 750 mg tabletIndications :Seronegative rheumatoid arthritis ([facility]) TAKE 1-2 TABLETS (750-1,500 MG) BY MOUTH [...] 1-2 tabs fluticasone propionate (FLONASE) 50 mcg/spray [place], Suspension nasal inhaler SHAKE LIQUID AND USE [...] st Contact Info) Description 06/25/2025 1:00 PM DIRECTOR OF STRATEGIC COMMUNICATIONS Appointment [facility] Services [place] [address] [phone] Oralia Elliott, BANKING SERVICES CLERK [address] [phone] 06/25/2025 2:00 PM DIRECTOR OF STRATEGIC COMMUNICATIONS Appointment [facility] Ultrasound [place] [address] [address] Lima Perez NP [address] [place] [phone] 06/25/2025 2:45 PM DIRECTOR OF STRATEGIC COMMUNICATIONS Appointment [facility] CT Scan [place] [address] [address] Lima Perez NP [address] [place] [address] 07/04/2025 1:40 PM DIRECTOR OF STRATEGIC COMMUNICATIONS Office Visit [facility] Orthopedics [place] [address] [facility] [address] [place] [address] Byron Rubi PA-C [address] [place] [address] 07/10/2025 1:00 PM DIRECTOR OF STRATEGIC COMMUNICATIONS Office Visit [facility] [address] [place] [address] Berlin Summers PA [address] [place] [address] 08/08/2025 3:30 PM DIRECTOR OF STRATEGIC COMMUNICATIONS Office Visit [facility] Douglas Zheng [place] [address] [place] [address] Nanda Mg NP [address] [place] [address] 08/27/2025 2:20 PM DIRECTOR OF STRATEGIC COMMUNICATIONS Telephone Check Up [facility] Neurosurgery [address] [place] [address] [place] [address] Martínez Han MD [address] [place] [address] 11/07/2025 2:40 PM CDT Office Visit [facility] Family Medicine [place] [address] [address] Nir Paulson MD [address] [address] 11/13/2025 2:30 PM CDT Office Visit [facility] Endocrinology [facility] [address] [place] [address] Alfred Tracy MD [address] [place] [address] 01/15/2026 8:45 AM CDT Office Visit [facility] Neurology - [place] [address] [place] [phone] Martínez Han MD [address] [place] [address] Yaneth Bass MD [address] [place] [address] documented as of this encounter [...] Diagnosis Severe persistent asthma with acute exacerbation ([facility]) Unspecified asthma, with exacerbation Productive cough Cough documented in this encounter Additional Health Concerns Infection Onset Date Last Indicated Resolved Time R/O Respiratory 06/19/2025 06/20/2025 06/20/2025 6 :41 PM CDT documented as of this encounter Care Teams Second Worker Relationship Specialty Start Date End Date Nir Paulson MD [address] [place] [address] PCP - General Family Practice 10/13/21 documented as of this encounter
--- OUTSIDE RECORDS SUMMARY | 2025-06-19 13:40 | XMS_ITS | Encounter Summary ---
Author Organization [facility] Address [address] [place] [address] Care Team Providers Care Senior Scientist Name Role Phone Nir Paulson MD Primary Care Provider [phone] [phone] Encounter Details Date Type Department Care Team (Latest Contact Info) Description 06/19/2025 2:40 PM CDT - 06/19/2025 11:59 PM CDT Hospital Encounter [facility] [address] [phone] Nir Paulson MD [address] [facility] [address] [place] [address] Discharge Disposition: Home or Self [...] on file Legal Sex Female 3:40 AM RAILROAD CAR REPAIR SUPERVISOR Gender Identity Not on file Sexual Orientation Not on file documented as of this encounter Medications at Time of Discharge doxycycline hyclate (VIBRAMYCIN) 100 mg tablet Take 1 Tablet (100 mg) by mouth 2 times daily for 10 days. 20 Tablet 5 06/29/20 25 nebulizerIndicati ons:Severe persistent asthma with acute exacerbation ([facility]) Length of need 99 months Nebulizer [...] (ROBAXIN) 750 mg tabletIndications :Seronegative rheumatoid arthritis ([facility]) TAKE 1-2 TABLETS (750-1,500 MG) BY [...] 1-2 tabs fluticasone propionate (FLONASE) 50 mcg/spray [place], Suspension nasal inhaler SHAKE LIQUID AND USE [...] st Contact Info) Description 06/25/2025 1:00 PM RAILROAD CAR REPAIR SUPERVISOR Appointment [facility] [place] [address] [phone] Oralia Elliott, MOISTURE TESTER [address] [phone] 06/25/2025 2:00 PM RAILROAD CAR REPAIR SUPERVISOR Appointment [facility] Ultrasound [place] [address] [address] Lima Perez NP [address] [place] [phone] 06/25/2025 2:45 PM RAILROAD CAR REPAIR SUPERVISOR Appointment [facility] CT Scan [place] [address] [address] Lima Perez NP [address] [place] [address] 07/04/2025 1:40 PM RAILROAD CAR REPAIR SUPERVISOR Office Visit [facility] Orthopedics [place] [address] [facility] [address] [place] [address] Byron Rubi PA-C [address] [place] [address] 07/10/2025 1:00 PM RAILROAD CAR REPAIR SUPERVISOR Office Visit [facility] [address] [place] [address] Berlin Summers PA [address] [place] [address] 08/08/2025 3:30 PM RAILROAD CAR REPAIR SUPERVISOR Office Visit [facility] Douglas Zheng Lea [address] [place] [address] Nanda Mg NP [address] [place] [address] 08/27/2025 2:20 PM RAILROAD CAR REPAIR SUPERVISOR Telephone Check Up [facility] Neurosurgery [address] [place] [address] Martínez Han MD [address] [place] [address] 11/07/2025 2:40 PM CDT Office Visit [facility] Family Medicine [place] [address] [address] Nir Paulson MD [address] [address] 11/13/2025 2:30 PM CDT Office Visit [facility] Endocrinology [facility] [address] [place] [address] Alfred Tracy MD [address] [place] [address] 01/15/2026 8:45 AM CDT Office Visit [facility] Neurology - [place] [address] [place] [phone] Martínez Han MD [address] [place] [address] Yaneth Bass MD [address] [place] [address] documented as of this encounter [...] Diagnosis Severe persistent asthma with acute exacerbation ([facility]) Unspecified asthma, with exacerbation Productive cough Cough documented in this encounter Additional Health Concerns Infection Onset Date Last Indicated Resolved Time R/O Respiratory 06/19/2025 06/20/2025 06/20/2025 6 :41 PM CDT documented as of this encounter Care Teams Senior Scientist Relationship Specialty Start Date End Date Nir Paulson MD [address] [place] [address] PCP - General Family Practice 10/13/21 documented as of this encounter
[2025-06-24] VITALS (21 sets, daily range): BP systolic 123–152; BP diastolic 69–101; PULSE 81–107; RESP 12–22; TEMP 36.8–36.9; O2SAT 92–98; BMI 31.3; BMI 30.5
--- OUTSIDE RECORDS SUMMARY | 2025-06-24 10:30 | XMS_ITS | Encounter Summary ---
Author Organization [facility] Address [address] [place] [address] Care Team Providers Care Airplane Pilot Crop Dusting Name Role Phone Nir Paulson MD Primary Care Provider [phone] [phone] Reason for Visit * Reason Comments Provider Call Encounter Details Date Type Department Care Team (Late st Contact Info) Description 06/22/2025 Telephone [facility] Family Medicine [address] [address] Nir Paulson MD [address] [address] Provider Call Social History Tobacco Use Types Packs/Day Years [...] worry about transportation for future doctor visits, brick picker medication, etc.? No 2024 Housing Stability Answer Date Recorded Do you worry you won t have a steady place to sleep or struggle to pay rent or mortgage? No 06/01/2025 Utility Needs Answer Date Recorded Do you have difficulty payin g for utility costs ([employer] water or gas bills)? 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 Visit summary faxed. Arianna Serrato LPN, 06/22/2025 9:24 AM * Telephone Encounter - Brayan Da Silva - 06/22/2025 9:18 AM CDT Copied from [facility] #[id number]. Topic: [id number]-[id number] Call >> Jun 22, 2025 9:02 AM Brayan Reeves wrote: Caller is requesting to speak with Clinical Care Team. Caller Name: Marianne with [employer] Callback Number: Telephone Information: Is the caller a Physician, Nurse Practitioner or Physician Supervisor Heat Treating? No Call Notes: Needing a prior authorization from [place] Medicaid and chart note from the visit on 06/19/2025 for the DME Nebulizer Machine needed for the patient. Please review and fax information tofax # [phone] Is this addressing an immediate patient care need? No documented in this encounter Plan of Treatment Upcoming Encounters Date Type Department Care Team (Late st Contact Info) Description 06/25/2025 1:00 PM RIVERS AND LAKES BOATMAN Appointment [facility] [address] [facility] [address] [place] [address] Oralia Elliott, PAPER CUP HANDLE MACHINE OPERATOR [address] [facility] 60 [place] [address] 06/25/2025 2:00 PM RIVERS AND LAKES BOATMAN Appointment [facility] Ultrasound [place] [address] [place] [address] Lima Perez, CONSTANZA [address] [place] [address] 06/25/2025 2:45 PM RIVERS AND LAKES BOATMAN Appointment [facility] CT Scan [place] [address] [place] [address] Lima Perez, CONSTANZA [address] [place] [address] 07/04/2025 1:40 PM RIVERS AND LAKES BOATMAN Office Visit [facility] Orthopedics [place] [address] [place] [address] Byron Rubi PA-C [address] [place] [address] 07/10/2025 1:00 PM RIVERS AND LAKES BOATMAN Office Visit [facility] [address] [place] [address] Berlin Summers PA [address] [place] [address] 08/08/2025 3:30 PM RIVERS AND LAKES BOATMAN Office Visit [facility] Douglas Zheng [place] [address] [place] [address] Nanda Mg NP [address] [place] [address] 08/27/2025 2:20 PM RIVERS AND LAKES BOATMAN Telephone Check Up [facility] Neurosurgery [address] [place] [address] Martínez Han MD [address] [place] [address] 11/07/2025 2:40 PM CDT Office Visit [facility] Family Medicine [place] [address] [address] Nir Paulson MD [address] [place] [address] 11/13/2025 2:30 PM CDT Office Visit [facility] [address] [place] [address] Alfred Tracy MD [address] [place] [address] 01/15/2026 8:45 AM CDT Office Visit [facility] Neurology - [place] [address] [place] [address] Martínez Han MD [address] [place] [address] Yaneth Bass MD [address] [place] [address] documented as of this encounter Visit Diagnoses Not on filedocumented in this encounter Additional Health Concerns Infection Onset Date Last Indicated Resolved Time Parainfluenza 06/20/2025 06/20/2025 documented as of this encounter Care Teams Airplane Pilot Crop Dusting Relationship Specialty Start Date End Date Nir Paulson MD [address] [address] PCP - General Family Practice 10/13/21 documented as of this encounter
--- OUTSIDE RECORDS SUMMARY | 2025-06-24 10:31 | XMS_ITS | Encounter Summary ---
Author Organization [facility] Address [address] [place] [address] Care Team Providers Care Laboratory Animal Caretaker Name Role Phone Veronica Carvajal MD Primary Care Provider [phone]- [phone] Reason for Referral * Outpatient Services (Routine) - Closed Specialty Diagnoses / Procedures Referred By Contac t Referred To Contact Radiology Diagnoses Abnormal mammogram Procedures MAMMO DIAGNOSTIC UNI LEFT W OR WO CAD MAMMO DIAGNOSTIC UNI LEFT W OR WO CAD Nir Paulson MD [address] [address] Phone: tel: fax: [facility] [address] [facility] [address] [place] [address] Phone: tel: fax: Referral ID Status Reason Start Date Expiration Date V isits Requested Visits Authorized [id number] Closed [facility] TO SCHEDULE (SGF) 12/17/2017 01/17/2019 1 1 Encounter Details Date Type Department Care Team (Late st Contact Info) Description 02/10/2018 Ancillary Orders [facility] [address] 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 Gender Identity Not on file Sexual Orientation Not on file Occupation Industry Job Start Date Job End Date Not on file Not on file Not on file Not on file Not on file Not on file Not on file Not on file documented as of this encounter Plan of Treatment Not on file documented as of this encounter Results * MAMMO DIAGNOSTIC UNI LEFT W OR WO CAD (02/10/2018 1:42 PM CDT) Anatomical Region Laterality Modality Breast Left Mammography 02/10/2018 1:11 PM CDT Narrative 02/10/2018 2:43 PM CDT MAMMO DIAGNOSTIC UNI LEFT W OR WO CAD INDICATION FOR EXAMINATION: Abnormal mammogram COMPARISONS: Mammogram dated 05/24/2017, 05/31/2017, 06/02/2017. Ultrasound dated 06/02/2017, 05/31/2017. BREAST COMPOSITION: Heterogeneously dense which may obscure small masses. FINDINGS: This digital mammogram was also analyzed by the Computer Aided Detection System (CAD), [employer] ImageChecker, Version 8.3. The patient is status post benign left breast biopsy in May 2017. A biopsy clip is seen within the upper outer quadrant of the left breast at mid depth. The previously biopsied left breast mass is unchanged. The left breast fibroglandular pattern is stable; no suspicious abnormality is identified. ASSESSMENT: Benign. No evidence of malignancy. BI-RADS 2. RECOMMENDATIONS: Bilateral diagnostic mammogram in 6 months. [id number] Procedure Note Natanael Salazar MD - 02/10/2018 MAMMO DIAGNOSTIC UNI LEFT W OR WO CAD INDICATION FOR EXAMINATION: Abnormal mammogram COMPARISONS: Mammogram dated 05/24/2017, 05/31/2017, 06/02/2017. Ultrasound dated 06/02/2017, 05/31/2017. BREAST COMPOSITION: Heterogeneously dense which may obscure small masses. FINDINGS: This digital mammogram was also analyzed by the Computer Aided Detection System (CAD), [employer], Version 8.3. The patient is status post benign left breast biopsy in May 2017. A biopsy clip is seen within the upper outer quadrant of the left breast at mid depth. The previously biopsied left breast mass is unchanged. The left breast fibroglandular pattern is stable; no suspicious abnormality is identified. ASSESSMENT: Benign. No evidence of malignancy. BI-RADS 2. RECOMMENDATIONS: Bilateral diagnostic mammogram in 6 months. [id number] Nir Paulson MD MAMMO ORDERABLES Final Re sult documented in this encounter Visit Diagnoses Diagnosis Abnormal mammogram Abnormal mammogram, unspecified Abnormal mammogram Abnormal mammogram, unspecified documented in this encounter Care Teams Laboratory Animal Caretaker Relationship Specialty Start Date End Date Veronica Carvajal MD [address] [address] PCP - General Family Practice 11/20/20 documented as of this encounter
--- OUTSIDE RECORDS SUMMARY | 2025-06-24 10:31 | XMS_ITS | Encounter Summary ---
Author Organization [facility] Address [address] [place] [address] Care Team Providers Care Leather Tanner Name Role Phone Veronica Carvajal MD Primary Care Provider [phone]- [phone] Reason for Referral * Radiology Services (Routine) - Closed Specialty Diagnoses / Procedures Referred By Contac t Referred To Contact Radiology Diagnoses Abnormal mammogram Procedures MAMMO DIAGNOSTIC BILATERAL W OR WO CAD Nir Paulson MD [address] [address] Phone: tel: fax: [facility] [address] [address] Phone: tel: fax: Referral ID Status Reason Start Date Expiration Date V isits Requested Visits Authorized [id number] Closed F [facility] TO SCHEDULE (SGF) 08/03/2018 09/03/2019 1 1 HELPER Encounter Details Date Type Department Care Team (Late st Contact Info) Description 08/03/2018 Ancillary Orders [facility] Pre-Registration [place] CALL TO MAKE APPOINTMENT ONLY [address] [place] [address] Nir Paulson MD [address] [address] Abnormal mammogram Social History Tobacco Use Types Packs/Day Years Used Date Smoking Tobacco: Former Cigarettes 0.5 12 0 02/02/1984 - 02/02/1996 Smokeless Tobacco: Never Alcohol Use Standard Drinks/Week Comments No 0 (1 standard drink = 0.6 oz pur e alcohol) Comments No Sex and Gender Information Value Date Recorded Sex Assigned at Not on file 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 PAN HELPER Gender Identity Not on file Sexual Orientation Not on file Occupation Industry Job Start Date Job End Date Not on file Not on file Not on file Not on file Not on file Not on file Not on file Not on file documented as of this encounter Plan of Treatment Not on file documented as of this encounter Results * MAMMO DIAGNOSTIC BILATERAL W OR WO CAD (10/18/2018 3:42 PM PAN HELPER) Anatomical Region Laterality Modality Breast Bilateral Mammography 10/18/2018 3:42 PM PAN HELPER Impressions 10/20/2018 5:59 AM PAN HELPER : No mammographic evidence of malignancy. Stable postbiopsy changes of the left breast. Recommend returning to bilateral annual screening mammography in one year. The patient was given verbal and written results/recommendations. BI-RADS ASSESSMENT: 2 - Benign RECOMMENDATION: Bilateral annual screening mammography [id number] Narrative 10/20/2018 5:59 AM PAN HELPER EXAM: MAMMO DIAGNOSTIC BILATERAL W OR WO CAD INDICATION: 48-year-old female presents for six month follow-up after a benign left breast biopsy. She has no current concerns. COMPARISON: Mammogram 02/10/2018, 06/02/2017, 05/31/2017, 05/24/2017 MAMMOGRAM TECHNIQUE: MLO and CC digital mammographic images were acquired. In addition, ML, spot compression CC and spot compression MLO images of the right breast were obtained. This digital mammogram was also analyzed by the Computer Aided Detection System (CAD). FINDINGS: The breasts are heterogeneously dense, which may obscure small masses. Stable postbiopsy changes are identified in the upper outer quadrant of the left breast. On additional imaging, there are no new findings in the right breast. There are no suspicious masses, calcifications, or architectural distortions in either breast. Nir Paulson MD MAMMO ORDERABLES Final Re sult documented in this encounter Visit Diagnoses Diagnosis Abnormal mammogram Abnormal mammogram, unspecified Abnormal mammogram Abnormal mammogram, unspecified documented in this encounter Care Teams Leather Tanner Relationship Specialty Start Date End Date Veronica Carvajal MD [address] [phone] PCP - General Family Practice 11/20/20 documented as of this encounter
--- OUTSIDE RECORDS SUMMARY | 2025-06-24 10:31 | XMS_ITS | Clinical Summary ---
Author Organization [facility] Address [address] [facility] Attn: Epic [place] [address] Care Team Providers Care Strategic Manager Name Role Phone Nir Paulson MD Primary Care Provider [phone] Allergies Active Allergy Reactions Criticality Noted Date Comments Albuterol Rash Low 08/20/2017 Certolizumab Pegol Swelling Low 06/04/2014 Cyclobenzaprine Nausea and Vomiting Low 05/07/2022 Diphenhydramine Hcl Other (See Comments) Medium 2018 insomnia Etanercept Unknown 09/11/2021 Gabapentin Dizziness,Unknown Low 10/23/2021 Hydralazine Headache Low 09/11/2021 Leflunomide Other (See Comments) 04/28/2022 Lisinopril Other (See Comments) 03/23/2017 Cough Methotrexate Sodium Other (See Comments) 2021 Phentermine Hcl Other (See Comments) 04/28/2022 Pregabalin Nausea and Vomiting Low 01/03/2019 Propranolol Other (See Comments) 09/02/2023 Shakes / tremors all over body Medications levocetirizine (XYZAL) 5 mg tablet Take 5 mg by mouth late in the day. 021 Active multivitamin (DAILY-ART) tablet Take 1 Tablet by mouth daily. Active fluticasone propionate (FLONASE) 50 mcg/spray [place], Suspension nasal inhaler SHAKE LIQUID AND USE 1 TO 2 SPRAYS IN EACH NOSTRIL DAILY 16 Gram 021 Active cetirizine (ZyrTEC) 10 mg tablet Take 30 mg by mouth Active acetaminophen (TYLENOL) 500 mg tablet 1-2 tabs Active famotidine (PEPCID) 40 mg tabletIndicati ons:Gastroesop hageal reflux disease without esophagitis TAKE 1 TABLET(40 MG) BY MOUTH TWICE DAILY 180 Tablet 1 022 Active azelastine (ASTELIN) 137 mcg/actuation nasal spray USE 1 TO 2 SPRAYS IN EACH NOSTRIL EVERY 12 HOURS NEEDED FOR CONGESTION 30 mL 5 Active TURMERIC ORAL Turmeric Active NITRIC ACID, BULK, MISC as directed Active HALLIE, BULK, MISC as directed Active EpiPen 2-Rudy 0.3 mg/0.3 mL Auto-Injector Active Cholecalcifero l, Vitamin D3, (VITAMIN D3) 10 mcg (400 unit) capsule Take 50 mcg by mouth daily. Active morphine (MS CONTIN) 30 mg Controlled Release tablet TAKE ONE TABLET BY MOUTH TWICE DAILY FOR EXTENDED PAIN RELIEF 024 Active oxyCODONE (ROXICODONE) 10 mg tablet TAKE ONE TABLET BY MOUTH TWICE DAILY FOR breakthrough pain 024 Active tiotropium (SPIRIVA RESPIMAT) 1.25 mcg/actuation Mist Take 2 Puffs by inhalation daily. During harder asthma seasons, and interventionally for acute respiratory infections 4 Gram 5 024 Active metFORMIN (GLUCOPHAGE) 500 mg tabletIndicati ons:Controlled type 2 diabetes mellitus without complication, without long-term current use of insulin Take 1 Tablet (500 mg) by mouth 2 times daily with meals. 180 Tablet 024 Active mometasone-for moterol (Dulera) 200-5 mcg/actuation inhaler Take 2 Puffs by inhalation 2 times daily. 13 Gram 11 024 Active levalbuterol (XOPENEX) 0.63 mg/3 mL Solution for NebulizationIn dications:Mode rate persistent asthma without complication,M ild intermittent asthma, unspecified whether complicated Take 3 mL (0.63 mg) by inhalation every 8 hours as needed for Shortness of Breath or Wheezing. USE 1 VIAL VIA NEBULIZER EVERY 6 HOURS NEEDED FOR SHORTNESS OF BREATH 90 mL 5 024 Active conjugated estrogens (Premarin) 0.625 mg/gram vaginal creamIndicatio ns:Post-menopa usal INSERT 0.5 GRAM VAGINALLY 2 TIMES A WEEK 30 Gram 11 024 Active amLODIPine (NORVASC) 10 mg tabletIndicati ons:HTN (hypertension) , benign Take 1 Tablet (10 mg) by mouth daily. 90 Tablet 3 025 Active traMADol (ULTRAM) 50 mg tablet take 1 tablet by mouth three times daily as needed for pain 025 Active cloNIDine HCL (CATAPRES) 0.1 mg tabletIndicati ons:HTN (hypertension) , benign TAKE 1 TABLET BY MOUTH IF BP IS >170/100 ONLY NEEDED 20 Tablet 025 Active EnbreL 50 mg/mL (1 mL) Syringe INJECT ONE syringe UNDER THE SKIN EVERY SEVEN DAYS 025 Active spironolactone (ALDACTONE) 50 mg tabletIndicati ons:Benign hypertension Take 1 Tablet (50 mg) by mouth 2 times daily. 200 Tablet 3 025 Active mupirocin (BACTROBAN) 2 % OintmentIndica tions:Skin ulcer of toe of left foot, limited to breakdown of skin (CMS/HCC) Apply to affected area daily. 15 Gram 025 Active metoprolol tartrate (LOPRESSOR) 25 mg tabletIndicati ons:Chronic migraine without aura, intractable, without status migrainosus TAKE 1 TABLET BY MOUTH EVERY DAY NEEDED FOR MIGRAINE 30 Tablet 6 025 Active levalbuterol HFA (XOPENEX HFA) 45 mcg/Actuation HFA Aerosol InhalerIndicat ions:Moderate persistent asthma without complication Take 1-2 Puffs by inhalation every 4 hours as needed for Shortness of Breath. 15 Gram 1 025 Active promethazine (PHENERGAN) 25 mg tabletIndicati ons:Nausea TAKE 1 TABLET BY MOUTH EVERY 6 HOURS NEEDED FOR NAUSEA AND VOMITING 90 Tablet 025 Active predniSONE (DELTASONE) 10 mg tabletIndicati ons:Rib pain on left side Take 4 tablets for 3 days then 3 tablets for 3 days then 2 tablets for 3 days and 1 tablet for 3 days 30 Tablet 025 Active lidocaine (LIDODERM) 5 % Adhesive Patch, MedicatedIndic ations:Rib pain on left side Apply 1 Patch to affected area every 24 hours. 30 Patch 025 Active losartan (COZAAR) 100 mg tabletIndicati ons:Benign hypertension TAKE 1 TABLET BY MOUTH EVERY DAY 100 Tablet 1 025 Active methocarbamoL (ROBAXIN) 750 mg tabletIndicati ons:Seronegati ve rheumatoid arthritis (CMS/HCC) TAKE 1-2 TABLETS (750-1,500 MG) BY MOUTH 3 TIMES DAILY 600 Tablet 1 025 Active metoprolol succinate (TOPROL XL) 25 mg Extended Release 24 hour tabletIndicati ons:Benign hypertension TAKE 1 TABLET (25 MG) BY MOUTH DAILY. TAKE WITH 50 MG TABLET FOR 75 MG DOSE TOTAL 100 Tablet 1 025 Active metoprolol succinate (TOPROL XL) 50 mg Extended Release 24 hour tabletIndicati ons:Benign hypertension TAKE 1 TABLET BY MOUTH DAILY. TAKE WITH 25 MG TABLET FOR 75 MG DOSE TOTAL 100 Tablet 1 025 Active morphine (MS CONTIN) 60 mg Controlled Release tablet TAKE 1 TABLET BY MOUTH ONCE EVERY 12-24 HOURS FOR EXTENDED PAIN RELIEF Active furosemide (Lasix) 20 mg tabletIndicati ons:Bilateral edema of lower extremity Take 1 Tablet (20 mg) by mouth 1 time daily as needed (swelling). 90 Tablet 2 025 Active naproxen (NAPROSYN) 500 mg tablet Take 1 Tablet (500 mg) by mouth 2 times daily with meals. 60 Tablet 1 025 Active hydrocortisone (CORTEF) 10 mg tablet Take 1 Tablet (10 mg) by mouth 2 times daily. 180 Tablet 1 025 Active doxycycline hyclate (VIBRAMYCIN) 100 mg tablet Take 1 Tablet (100 mg) by mouth 2 times daily for 10 days. 20 Tablet 025 2024 Active nebulizerIndic ations:Severe persistent asthma with acute exacerbation (CMS/HCC) Length of need 99 months Nebulizer with compressor, Kit: Disposable Nebulizer Kit, 2 per month, filters , areosol mask: Yes. Name of Medication: Levalbuterol 1 Each 025 Active amoxicillin-cl avulanate (AUGMENTIN) 875-125 mg tablet Take 1 Tablet by mouth every 12 hours for 7 days. 14 Tablet 025 2024 Active methocarbamoL (ROBAXIN) 750 mg tabletIndicati ons:Seronegati ve rheumatoid arthritis ([facility]) Take 1-2 Tablets (750-1,500 mg) by mouth 3 times daily. 180 Tablet 11 024 2024 Discontinued losartan (COZAAR) 100 mg tabletIndicati ons:Benign hypertension Take 1 Tablet (100 mg) by mouth daily. 30 Tablet 11 024 2024 Discontinued metoprolol succinate (TOPROL XL) 50 mg Extended Release 24 hour tabletIndicati ons:Benign hypertension Take 1 Tablet (50 mg) by mouth daily. Take with 25 mg tablet for 75 mg dose total 30 Tablet 11 024 2024 Discontinued metoprolol succinate (TOPROL XL) 25 mg Extended Release 24 hour tabletIndicati ons:Benign hypertension Take 1 Tablet (25 mg) by mouth daily. Take with 50 mg tablet for 75 mg dose total 30 Tablet 11 024 2024 Discontinued hydrocortisone (CORTEF) 10 mg tablet TAKE 1 TABLET BY MOUTH 3 TIMES DAILY 90 Tablet 5 025 2024 Discontinued predniSONE (DELTASONE) 5 mg tablet TAKE 1 AND 1/2 TABS BY MOUTH DAILY] 025 2024 Discontinued Phentermine 30 mg CapsuleIndicat ions:Severe obesity (BMI 35.0-39.9) with comorbidity ([facility]) TAKE 1 CAPSULE BY MOUTH EVERY DAY 30 Capsule 2 025 2024 Discontinued furosemide (Lasix) 20 mg tabletIndicati ons:Bilateral edema of lower extremity Take 1 Tablet (20 mg) by mouth 1 time daily as needed (swelling). 30 Tablet 2 025 2024 Discontinued(R eorder) predniSONE (DELTASONE) 10 mg tablet Take 1 tablet by mouth for 3 days and 0.5 tab by mouth for 3 days 5 Tablet 025 2024 Discontinued Hospital, Clinic, or Other Facility Administered Medication Ordered Dose Route Frequency Start Date End Date Status ketorolac (TORADOL) injection 30 mgIndications:Closed fracture of multiple ribs of left side with routine healing, subsequent encounter 30 mg IM ONE TIME ONLY 06/06/2025 06/06/2025 E nded Active Problems Problem Noted Date Diagnosed Date Hamstring tear 01/31/2025 CVID (common variable immunodeficiency) 10/03/19 Severe persistent asthma without complication Controlled type 2 diabetes m ellitus without complication, without long-term current use of insulin 10/03/2024 S/P lumbar fusion 06/12/2024 Influenza vaccination declined 05/29/2024 Post-menopausal 05/29/2024 Osteoporosis with current pa thological fracture with routine healing 07/27/2023 Hematoma of muscle 05/25/2023 Hematoma of thigh, right, initial encounter 10/2022 Traumatic hematoma of buttock 05/25/2023 Swelling of right lower extremity 05/24/2023 Migraine without status migrainosus, not intract able 05/06/2022 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 Spondylolisthesis of lumbar region 09/16/2020 Lumbosacral spondylosis without myelopathy 09/16 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 09/16/2020 Gastroesophageal reflux disease without esophagi tis 08/09/2018 Chronic migraine without aur a, intractable, without status migrainosus 12/16/2017 Atopic dermatitis 10/28/2017 Chronic migraine 09/10/2017 Benign hypertension 09/10/2017 Immunosuppression 09/10/2017 Rectocele 04/09/2017 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 Primary osteoarthritis of both feet 11/11/2016 Freiberg's infraction 10/28/2016 Tenosynovitis of left foot 10/28/2016 Tailor's bunion of left foot 10/28/2016 Neuroma of second interspace of left foot 2016 Ovarian cyst, bilateral 07/15/2015 Seronegative rheumatoid arthritis 06/28/2015 Tendinitis of right rotator cuff 06/28/2015 De Quervain's tenosynovitis, right 06/28/2015 Bilateral carpal tunnel syndrome 06/28/2015 H/O chronic inflammatory arthritis 05/29/2015 Fibromyalgia 05/29/2015 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 9) with comorbidity 05/21/2015 10/03/2024 Prediabetes 05/21/2015 10/03/2024 Acute diverticulitis 019 Sigmoid diverticulitis 01/06 Abdominal pain 01/31/2025 Encounters Date Type Department Care Team Description 06/22/[address] [phone] Nir Paulson MD Provider Call 06/21/[address] [address] Nir Paulson MD Provider Call 06/21/2025 Results Follow-Up [address] [address] Nir Paulson MD RESPIRATORY PATHOGEN PCR PANEL, XR CHEST PA AND LATERAL 2 VW 06/19/2025 2:40 PM CDT - 06/19/2025 11:59 PM CDT Hospital Encounter [facility] [address] [phone] Nir Paulson MD Discharge Disposition: Home or Self Care 06/19/2025 1:20 PM CDT Office Visit [address] [address] Nir Paulson MD Productive cough (Primary Dx); Severe persistent asthma with acute exacerbation (CMS/HCC); correction (current) use of systemic steroids; CVID (common variable immunodeficiency) 06/19/[address] [phone] Nir Paulson MD Provider Call 06/18/2025 3:00 PM CDT Office Visit [facility] [address] [place] [address] Martínez Han MD Myelopathy (Primary Dx) 06/11/2025 Refill [facility] [address] [place] [address] Alfred Tracy MD 06/07/2025 3:20 PM CDT Office Visit [address] [phone] Byron Rubi PA-C Bilateral foot pain (Primary Dx); Left knee injury, initial encounter; Nondisplaced fracture of fourth metatarsal bone, left foot, initial encounter for closed fracture; Closed nondisplaced fracture of fifth metatarsal bone of left foot, initial encounter 06/07/2025 2:40 PM CDT Ancillary Procedure [address] [phone] Byron Rubi PA-C Bilateral foot pain 06/07/2025 2:35 PM CDT Ancillary Procedure [address] [phone] Byron Rubi PA-C Left knee injury, initial encounter 06/07/2025 Results Follow-Up [address] [phone] Oralia Elliott FNP CBC WITH DIFFERENTIAL, BASIC METABOLIC PANEL 06/06/2025 11:00 AM CDT Office Visit [address] [phone] Earl, Crystal Yoly, CLIENT EXPERIENCE CONSULTANT Closed fracture of multiple ribs of left side with routine healing, subsequent encounter (Primary Dx); correction (current) use of systemic steroids; Osteopenia of multiple sites; Localized swelling of both lower legs; Bilateral edema of lower extremity; Serum calcium elevated; Alkaline phosphatase elevation 06/06/[address] [phone] Nir Paulson MD Benign hypertension; Seronegative rheumatoid arthritis ([facility]) 06/05/2025 External Device Data STL ABSTRACTION Provider, Abstract 06/05/2025 External Device Data ST[facility] ABSTRACTION Provider, Abstract 06/05/2025 External Device Data ST[place] ABSTRACTION Provider, Abstract 06/02/2025 Results Follow-Up [facility] Emergency Medicine [address] [place] [phone] Adriana Kauffman APRN URINE CULTURE 06/01/2025 10:12 AM CDT - 06/01/2025 12:30 PM CDT Emergency [facility] Medicine [address] [place] [phone] Closed fracture of multiple ribs of left side, initial encounter (Primary Dx) Discharge Disposition: Home or Self Care 06/01/2025 Travel 05/30/2025 Results Follow-Up [address] [phone] Lima Perez, AUTO BODY MECHANIC BRAIN NATRIURETIC PEPTIDE, BNP OR PROBNP, COMPREHENSIVE METABOLIC PANEL, C-REACTIVE PROTEIN, CBC WITH DIFFERENTIAL 05/30/2025 Results Follow-Up [address] [phone] Lima Perez NP XR CHEST PA AND LATERAL 2 VW 05/30/[address] [phone] Nir Paulson MD Remote Monitoring 05/29/2025 4:27 PM CDT - 05/29/2025 11:59 PM CDT Hospital Encounter [facility] [address] [facility] [address] [place] [phone] Chris, Lima, AUTO BODY MECHANIC Discharge Disposition: Home or Self Care 05/29/2025 4:25 PM CDT - 05/29/2025 11:59 PM CDT Hospital Encounter [facility] [place] [address] [facility] [address] [place] [phone] Chris, Lima, AUTO BODY MECHANIC Chest pain, unspecified Discharge Disposition: Home or Self Care 05/29/2025 4:00 PM CDT Office Visit [address] [place] [phone] Chris, Lima, AUTO BODY MECHANIC Rib pain on left side (Primary Dx); Left-sided chest pain; Bilateral lower extremity edema 05/29/2025 Lab Requisition [facility] [place] 100 [facility] [address] [place] [phone] Raleigh, Lima, AUTO BODY MECHANIC Chest pain, unspecified; Localized edema 05/25/2025 Telephone [facility] [address] [place] [address] Berlin Summers PA Advice Only 05/23/[address] [place] [address] Nir Paulson MD Nausea 05/22/2025 External Device Data STL ABSTRACTION Provider, Abstract 05/18/2025 2:30 PM CDT Office Visit [facility] [address] [place] [address] Berlin Summers PA CVID (common variable immunodeficiency) (CMS/HCC) (Primary Dx); Moderate persistent asthma without complication; Allergic rhinitis due to fungal spores, unspecified seasonality 05/17/2025 Results Follow-Up [facility] [address] [place] [phone] Alfred Tracy MD TSH, VITAMIN D 25 HYDROXY, HEMOGLOBIN A1C 05/16/2025 2:30 PM CDT Office Visit [facility] [address] [place] [address] Alfred Tracy MD Controlled type 2 diabetes mellitus without complication, without long-term current use of insulin ([facility]) (Primary Dx); Hypovitaminosis D; Class 1 obesity with serious comorbidity and body mass index (BMI) of 31.0 to 31.9 in adult, unspecified obesity type 05/16/2025 Results Follow-Up [address] [phone] Oralia Elliott FNP URINE CULTURE 05/10/2025 4:00 PM CDT Office Visit [address] [phone] Oralia Elliott FNP Infection due to salmonella (Primary Dx); Encounter for routine adult health examination with abnormal findings; Yeast infection; Upper respiratory tract infection, unspecified type; Controlled type 2 diabetes mellitus without complication, without long-term current use of insulin ([facility]) 05/07/[address] [phone] Nir Paulson MD Chronic migraine without aura, intractable, without status migrainosus 05/02/[address] [phone] Corie Das, CLIENT EXPERIENCE CONSULTANT Nausea 04/30/2025 Results Follow-Up [address] [phone] Marnie Burns FNP XR CHEST PA AND LATERAL 2 VW 04/27/2025 3:15 PM CDT - 04/27/2025 11:59 PM CDT Hospital Encounter [facility] [address] [phone] Oralia Elliott FNP Discharge Disposition: Home or Self Care 04/27/2025 2:20 PM CDT Office Visit [address] [phone] Oralia Elliott FNP Upper respiratory tract infection, unspecified type (Primary Dx); Skin ulcer of toe of left foot, limited to breakdown of skin (CMS/HCC) 04/19/2025 3:40 PM CDT - 04/19/2025 11:59 PM CDT Hospital Encounter [facility] [address] [address] [place] [phone] Oralia Elliott FNP Discharge Disposition: Home or Self Care 04/18/2025 Results Follow-Up [address] [phone] Marnie Burns FNP COMPREHENSIVE METABOLIC PANEL, CBC WITH DIFFERENTIAL 04/17/2025 2:00 PM CDT Office Visit [address] [phone] Marnie Burns FNP Skin ulcer of toe of left foot, limited to breakdown of skin (CMS/HCC) (Primary Dx); Edema leg 04/11/[address] [facility] [place] [phone] Corie Das FNP Nausea 04/10/2025 External Device Data STL ABSTRACTION Provider, Abstract 04/03/[address] [phone] Oralia Elliott FNP Information 04/02/[address] [phone] Oralia Elliott FNP Acute cystitis without hematuria (Primary Dx) 03/30/2025 Results Follow-Up [address] [place] [phone] Earl Oralia Francon, CLIENT EXPERIENCE CONSULTANT XR FOOT 3+ VW LEFT, POC URINALYSIS DIPSTICK AUTOMATED, BASIC METABOLIC PANEL, Additional followed-up results: 2 03/29/2025 3:37 PM CDT - 03/29/2025 11:59 PM CDT Hospital Encounter [facility] [address] [place] [phone] Earl, Crystal Yoly, CLIENT EXPERIENCE CONSULTANT Discharge Disposition: Home or Self Care 03/29/2025 2:40 PM CDT Office Visit [facility] [address] [phone] Earl, Crystal Yoly, CLIENT EXPERIENCE CONSULTANT Dysuria (Primary Dx); Benign hypertension; Bilateral edema of lower extremity; Chronic bilateral low back pain with bilateral sciatica; Spondylolisthesis of lumbar region; Lumbosacral spondylosis without myelopathy; S/P lumbar fusion; Skin ulcer of toe of left foot, limited to breakdown of skin ([facility]) 03/28/2025 External Device Data ST[facility] ABSTRACTION Provider, Abstract 03/27/[address] [phone] Corie Das FNP Benign hypertension from Last 3 Months Immunizations Immunization Administration Dates Next Due (ADACEL/BOOSTRIX)(10 YR UP) TDAP VACCINE, 0.5ML, IM 09/24/2020 (PNEUMOVAX 23)(50 YRS UP) PN EUMOCOCCAL POLYSACCHARIDE (PPV23) 0.5 ML, IM 12/25/2020 INFLUENZA VACCINE QUADRIVALE NT 3 YR UP PF IM 05/30/2015 INFLUENZA VACCINE QUADRIVALE NT 6 MOS UP PF IM 08/10/2022,07/03/2021,06/13/2019,06/22 Influenza Seasonal Unspecifi ed Formulation IM 08/10/2022,07/03/2021,06/06/2020,06/22,06/22/2017,05/23/2016 Influenza Vaccine Tri Split 4+ Im 2019,06/22/2018,06/22/2017,05/23 PNEUMOVAX (PPSV23) pneumococ migel polysaccharide 23-valent Vaccine 12/25/2020 Family History Medical History Relation Name Comments Heart Disease Maternal Grandfather Hypertension Maternal Grandfather Stroke Maternal Grandfather Heart Disease Mother Hypertension Mother Sickle Cell Anemia Mother Stroke Mother Cancer Paternal Uncle Pancreatic Ca ncer- See media tab Amblyopia Neg Hx Blindness Neg Hx Breast Cancer Neg Hx Colon Cancer Neg Hx Glaucoma Neg Hx Macular Degen Neg Hx Ovarian Cancer Neg Hx Strabismus Neg Hx Relation Name Status Comments Father Alive Maternal Grandfather Mother Alive Paternal Uncle Social History Tobacco Use Types Packs/Day Years Used Date Smoking Tobacco: Former Cigarettes 0.5 15 0 02/01/1981 - 02/02/1996 Passive Smoke Exposure: Past Smokeless Tobacco: Never Tobacco Cessation:Counseling Given: No Alcohol Use Standard Drinks/Week Comments No 0 [...] worry about transportation for future doctor visits, pick up worker medication, etc.? No 2024 Housing Stability Answer [...] on file Legal Sex Female 3:40 AM CARE CONSULTANT Gender Identity Not on file Sexual Orientation Not on file Last Filed Vital Signs Vital Sign Reading [...] Mass Index 31.48 06/19/2025 1:28 PM CDT Plan of Treatment Upcoming Encounters Date Type Department Care Team (Late st Contact Info) Description 06/25/2025 1:00 PM CARE CONSULTANT Appointment [facility] [place] [address] [phone] Oralia Elliott, CLIENT EXPERIENCE CONSULTANT [address] [phone] 06/25/2025 2:00 PM CARE CONSULTANT Appointment [facility] [place] [address] [address] Lima Perez, CONSTANZA [address] [place] [address] 06/25/2025 2:45 PM CARE CONSULTANT Appointment [facility] Scan [place] [address] [phone] Lima Perez, CONSTANZA [address] [place] [phone] 07/04/2025 1:40 PM CARE CONSULTANT Office Visit [facility] [place] [address] [facility] [address] [place] [address] Byron Rubi PA-C [address] [place] [address] 07/10/2025 1:00 PM CARE CONSULTANT Office Visit [facility] [address] [place] [address] Berlin Summers PA [address] [place] [address] 08/08/2025 3:30 PM CARE CONSULTANT Office Visit [facility] Douglas Zheng [place] [address] [place] [address] Nanda Mg NP [address] [place] [address] 08/27/2025 2:20 PM CARE CONSULTANT Telephone Check Up [facility] [address] [place] [address] Martínez Han MD [address] [place] [address] 11/07/2025 2:40 PM CDT Office Visit [facility] Medicine [address] [phone] Nir Paulson MD [address] [phone] 11/13/2025 2:30 PM CDT Office Visit [facility] [address] [place] [address] Alfred Tracy MD [address] [place] [address] 01/15/2026 8:45 AM CDT Office Visit [facility] [place] [address] [address] [place] [address] Martínez Han MD [address] [place] [address] Yaneth Bass MD [address] [place] [address] Health Maintenance Due Date Last Done Comments HEPATITIS B VACCINES (1 of 3 - 19+ 3-dose series) 1987 ZOSTER VACCINE (1 of 2) 1987 FIT-DNA Q 3 years 2013 FIT/FOBT Q 1 year 2013 Flex Sig/CT Colonography Q 5 years 2013 Preventative Visit- Commercial 08/23/2024 1 10/03/2023, 07/28/2023, 07/27/2022, Additional history exists LDL CHOLESTEROL ANNUAL 01/03/2025 , 07/20/2017, 12/24/2016, Additional history exists BREAST CANCER SCREENING 06/14/2025 06/14/20, 10/18/2018, 10/18/2018, Additional history exists DIABETES ANNUAL RETINAL EXAM 07/18/2025 07/18/2024, 05/20/2022 DIABETES HBA1C Q 6 MONTHS 11/13/20252024, 11/14/2024, 05/15/2024, Additional history exists DIABETES ANNUAL FOOT EXAM 12/29/20252024, 08/25/2023, 06/04/2022 DIABETES MICROALBUMIN ANNUAL SCREEN 05/11/2026 05/11/2025, 11/07/2024, 05/06/2023 DIABETES: A1C (Auto Order) 05/16/202605/16, 11/14/2024, 05/15/2024, Additional history exists COLORECTAL SCREENING 03/22/2029 03/22/2019, 03/22/20 Colorectal Cancer Screening 03/22/2029 DTAP/TDAP/TD VACCINES (2 - T d or Tdap) 09/24/2030 09/24/2020 INFLUENZA VACCINE Completed 05/10/2025, , 08/10/2022, Additional history exists Medical Devices Implanted Type Area [employer]ess Device Identifier Shelf Expiration Date Model / Serial / Lot Tightrope Btb Acl [id number] - Sn/A Implanted:Qty: 1 on 06/13/2014 by Onel Ross MD [place] Right: Knee [employer] 02/19/2019 [id number] / N/A / [id number] Mesh Ventralight St 4x6in [id number] - Sna Implanted:Qty: 1 on 09/28/2018 by Andre Law MD Mesh N/A: Abdomen CR [employer] 01/18/2020 [id number] / NA / [id number] Description:Soaked in Ropiva cristian 0.5% 100mg/20mL. Lot [id number], exp 02/11 Screw Biocomp Intrfrnc 9x35mm [id number] - [id number] Implanted:Qty: 1 on 06/13/2014 by Onel Ross MD [place] Right: Knee [employer] 03/22/2015 [id number] / / [id number] Procedures Procedure Name Priority Date/Time Associated Diagnosis Comments RESPIRATORY PATHOGEN PCR PANEL Routine 06/20/2025 2:11 PM CDT Severe persistent asthma with acute exacerbation (CMS/HCC) correction (current) use of systemic steroids CVID (common variable immunodeficiency) Productive cough XR CHEST PA AND LATERAL 2 VW Routine 06/19/2025 2:57 PM CDT Severe persistent asthma with acute exacerbation (CMS/HCC) Productive cough XR FOOT 3+ VW BILAT Routine 06/07/2025 3 :00 PM CDT Bilateral foot pain XR KNEE 3 VW LEFT Routine 06/07/2025 2:5 9 PM CDT Left knee injury, initial encounter COMPREHENSIVE METABOLIC PANEL Routine 06/06/2025 11:39 AM CDT Serum calcium elevated Alkaline phosphatase elevation BASIC METABOLIC PANEL Routine 06/06/2025 11:39 AM CDT Localized swelling of both lower legs CBC WITH DIFFERENTIAL Stat 06/06/2025 11:39 AM CDT Localized swelling of both lower legs CT CHEST W CONTRAST Stat 06/01/2025 1 1:42 AM CDT URINALYSIS W/REFLEX MICROSCOPIC Stat 06/01/2025 10:37 AM CDT BRAIN NATRIURETIC PEPTIDE, BNP OR PROBNP Stat 06/01/2025 10:37 AM CDT COMPREHENSIVE METABOLIC PANEL Stat 06/01/2025 10:37 AM CDT CBC WITH DIFFERENTIAL Stat 06/01/2025 10:37 AM CDT URINE CULTURE Stat 06/01/2025 10:37 AM CDT XR CHEST PA AND LATERAL 2 VW Stat 05/29/2025 4:38 PM CDT Left-sided chest pain CBC WITH DIFFERENTIAL Stat 05/29/2025 4:35 PM CDT Chest pain, unspecified Localized edema C-REACTIVE PROTEIN Stat 05/29/2025 4: 35 PM CDT Chest pain, unspecified Localized edema COMPREHENSIVE METABOLIC PANEL Stat 05/29/2025 4:35 PM CDT Chest pain, unspecified Localized edema BRAIN NATRIURETIC PEPTIDE, BNP OR PROBNP Stat 05/29/2025 4:35 PM CDT Chest pain, unspecified Localized edema HEMOGLOBIN A1C Routine 05/16/2025 3:07 PM CDT Controlled type 2 diabetes mellitus without complication, without long-term current use of insulin ([facility]) VITAMIN D 25 HYDROXY Routine 05/16/2025 3:07 PM CDT Controlled type 2 diabetes mellitus without complication, without long-term current use of insulin ([facility]) Hypovitaminosis D TSH Routine 05/16/2025 3:07 PM CDT Controlled type 2 diabetes mellitus without complication, without long-term current use of insulin ([facility]) Hypovitaminosis D MICROALBUMIN/CREATINI NE RATIO, RANDOM UR Routine 05/11/2025 8:38 AM CDT Controlled type 2 diabetes mellitus without complication, without long-term current use of insulin ([facility]) URINE CULTURE Routine 05/11/2025 8:38 AM CDT Infection due to salmonella XR CHEST PA AND LATERAL 2 VW Routine 04/27/2025 3:23 PM CDT Upper respiratory tract infection, unspecified type MRI LUMBAR WO CONTRAST Routine 04/19/2025 4:17 PM CDT Chronic bilateral low back pain with bilateral sciatica Spondylolisthesis of lumbar region Lumbosacral spondylosis without myelopathy S/P lumbar fusion CBC WITH DIFFERENTIAL Routine 04/17/2025 2:46 PM CDT Skin ulcer of toe of left foot, limited to breakdown of skin (CMS/HCC) COMPREHENSIVE METABOLIC PANEL Routine 04/17/2025 2:41 PM CDT Skin ulcer of toe of left foot, limited to breakdown of skin (CMS/HCC) Edema leg URINE CULTURE Routine 03/29/2025 4:05 PM CDT Dysuria POC URINALYSIS DIPSTICK AUTOMATED Routine 03/29/2025 4:01 PM CDT Dysuria XR FOOT 3+ VW LEFT Routine 03/29/2025 3: 59 PM CDT Skin ulcer of toe of left foot, limited to breakdown of skin (CMS/HCC) BASIC METABOLIC PANEL Routine 03/29/2025 3:21 PM CDT Bilateral edema of lower extremity HM DIABETES EYE EXAM Routine 07/18/2024 12:39 PM CARE CONSULTANT MAMMO 3D SANDRA SCREEN BILAT W OR WO CAD Routine 06/14/2024 3:45 PM CDT Breast cancer screening by mammogram LIPID PANEL Routine 01/04/2024 11:41 AM CDT Controlled type 2 diabetes mellitus without complication, without long-term current use of insulin ([facility]) from Last 3 Months or Most Recently Relevant to Health Maintenance Results * (ABNORMAL) RESPIRATORY PATHOGEN PCR PANEL (06/20/2025 2:11 PM CDT) COVID-19 PCR NOT DETECTED Not Detected 06/20/2025 6:41 PM CDT [facility] Parainfluenza 2 by PCR DETECTED(A) Not Detected 06/20/2025 6:41 PM CDT [facility] Upper Respiratory ENTIRE NASOPHARYNX / Unknown Collection / Unknown 06/20/2025 2:11 PM CDT 06/20/2025 4:43 PM CDT Narrative [facility] - 06/20/2025 6:41 PM CDT The [...] pertussis Bordetella parapertussis Chlamydophila pneumoniae Mycoplasma pneumoniae us Nir Paulson MD MICROBIOLOGY - GENERAL OR DERABLES Final Result [facility] CLIA # [id number] [address] [place] [address] * XR CHEST PA AND LATERAL 2 VW (06/19/2025 2:57 PM CDT) Only the most recent of3 resultswithin the time period is included. Anatomical Region Laterality Modality Chest Computed Radiogr [...] MD DIAGNOSTIC IMAGING ORDERA BLES Final Result * XR FOOT 3+ VW BILAT (06/07/2025 3:00 PM CDT) Anatomical Region Laterality Modality Ankle / Foot Computed Radiogr aphy Narrative 06/11/2025 1:55 PM CDT 3 views of the bilateral feet are significant for a closed, nondisplaced fracture of the 4th and 5th metatarsal heads. There are notable osteoarthritic changes present at the midfoot of both feet and pes planus. Byron Rubi PA-C DIAGNOSTIC IMAGING ORDERABLES Final Result * XR KNEE 3 VW LEFT (06/07/2025 2:59 PM CDT) Anatomical Region Laterality Modality Lower Extremity Computed Radiogr aphy Narrative 06/11/2025 1:55 PM CDT 3 views of the left knee are negative for any acute fractures or dislocation. There are severe tricompartmental degenerative changes most pronounced in medial and lateral compartments. Byron Rubi PA-C DIAGNOSTIC IMAGING ORDERABLES Final Result * (ABNORMAL) CBC WITH DIFFERENTIAL (06/06/2025 11:39 AM CDT) Only the most recent of4 resultswithin the time period is included. WBC 8.6 3.8 - 10.8 Thousand/u L [facility] RBC 4.38 3.80 - 5.10 Million/uL [facility] HEMOGLOBIN 13.7 11.7 - 15.5 g/dL [facility] HEMATOCRIT 42.1 35.0 - 45.0 % [facility] MCV 96.1 80.0 - 100.0 fL [facility] MCH 31.3 27.0 - 33.0 pg [facility] MCHC 32.5 32.0 - 36.0 g/dL [facility] Comment: For adults, a slight decrease in the calculated MCHC value (in the range of 30 to 32 g/dL) is most likely not clinically significant; however, it should be interpreted with caution in correlation with other red cell parameters and the patient's clinical condition. RDW 13.1 11.0 - 15.0 % [facility] PLATELETS 406(H) 140 - 400 Thousand/u L [facility] MPV 8.3 7.5 - 12.5 fL [facility] NEUTROPHIL ABSOLUTE 7,749 1,500 - 7,800 cells/uL [facility] LYMPHOCYTE ABSOLUTE 636(L) 850 - 3,900 cells/uL [facility] MONOCYTE ABSOLUTE 198(L) 200 - 950 cells/uL [facility] EOSINOPHIL ABSOLUTE 0(L) 15 - 500 cells/uL [facility] BASOPHILS ABSOLUTE 17 0 - 200 cells/uL [facility] NEUTROPHIL 90.1 % [facility] LYMPHOCYTES 7.4 % [facility] MONOCYTE 2.3 % [facility] EOSINOPHILS 0.0 % [facility] BASOPHILS 0.2 % [facility] Comment: Test Performed at: [facility] [address] [facility] [place] [address] Tanvir Montero MD Blood 06/06/2025 11:3 9 AM CDT 06/07/2025 3:04 AM CDT Oralia Elliott CLIENT EXPERIENCE CONSULTANT HEMATOLOGY ORDERABLES Fi nal Result [facility] [phone] [facility] [address] [place] [address] * (ABNORMAL) COMPREHENSIVE METABOLIC PANEL (06/06/2025 11:39 AM CDT) Only the most recent of4 resultswithin the time period is included. GLUCOSE 257(H) 65 - 99 mg/dL [facility] Comment: Fasting reference interval For someone without known diabetes, a glucose value >125 mg/dL indicates that they may have diabetes and this should be confirmed with a follow-up test. BUN 15 7 - 25 mg/dL [facility] CREATININE 0.84 0.50 - 1.03 mg/dL [facility] GFR 81 > OR = 60 mL/min/1. 73m2 [facility] BUN/CREAT RATIO SEE NOTE: 6 - 22 (calc) [facility] Comment: Not Reported: BUN and Creatinine are within reference range. SODIUM 135 135 - 146 mmol/L [facility] POTASSIUM 4.3 3.5 - 5.3 mmol/L [facility] CHLORIDE 98 98 - 110 mmol/L [facility] CO2 27 20 - 32 mmol/L [facility] CALCIUM 9.5 8.6 - 10.4 mg/dL [facility] TOTAL PROTEIN 6.8 6.1 - 8.1 g/dL [facility] ALBUMIN 4.4 3.6 - 5.1 g/dL [facility] GLOBULIN 2.4 1.9 - 3.7 g/dL (calc) [facility] ALBUMIN/GLOBULIN RATIO 1.8 1.0 - 2.5 (calc) [facility] BILIRUBIN TOTAL 0.2 0.2 - 1.2 mg/dL [facility] ALKALINE PHOSPHATASE 126 37 - 153 U/L [facility] AST 25 10 - 35 U/L [facility] ALT 36(H) 6 - 29 U/L [facility] Comment: Test Performed at: [email or web address] [place] [address] Tanvir Montero MD Blood 06/06/2025 11:3 9 AM CDT 06/07/2025 3:04 AM CDT us Lima Perez NP CHEMISTRY ORDERABLES Final Res ult [facility] [phone] [facility] [address] [place] [address] * (ABNORMAL) BASIC METABOLIC PANEL (06/06/2025 11:39 AM CDT) Only the most recent of2 resultswithin the time period is included. GLUCOSE 254(H) 65 - 99 mg/dL [facility] Comment: Fasting reference interval For someone without known diabetes, a glucose value >125 mg/dL indicates that they may have diabetes and this should be confirmed with a follow-up test. BUN 14 7 - 25 mg/dL [facility] CREATININE 0.80 0.50 - 1.03 mg/dL [facility] GFR 86 > OR = 60 mL/min/1.7 3m2 [facility] BUN/CREAT RATIO SEE NOTE: 6 - 22 (calc) [facility] Comment: Not Reported: BUN and Creatinine are within reference range. SODIUM 135 135 - 146 mmol/L [facility] POTASSIUM 4.2 3.5 - 5.3 mmol/L [facility] CHLORIDE 99 98 - 110 mmol/L [facility] CO2 27 20 - 32 mmol/L [facility] CALCIUM 9.5 8.6 - 10.4 mg/dL [facility] Comment: Test Performed at: [facility] [address] [place] [address] Tanvir Montero MD Blood 06/06/2025 11:3 9 AM CDT 06/07/2025 3:04 AM CDT us Oralia Elliott CLIENT EXPERIENCE CONSULTANT CHEMISTRY ORDERABLES Fin al Result Performing Organization Address City/State/[facility] Co de Phone Number [facility] [phone] [facility] [address] [place] [address] * CT CHEST W CONTRAST (06/01/2025 11:42 AM CDT) Anatomical Region Laterality Modality Chest Computed Tomogra phy 06/01/2025 11:0 6 AM CDT Impressions 06/01/2025 12:06 PM CDT IMPRESSION: 1. Recent six and seven left rib fractures. 2. No evidence of any pulmonary infiltrates. Narrative 06/01/2025 12:06 PM CDT Exam: CT CHEST W CONTRAST Date/Time of Exam: 06/01/2025 11:42 AM Reason For Exam: Chest wall pain, nontraumatic, infection or inflammation suspected, xray done, Pleural effusion, malignancy suspected. Axial images were obtained through the chest. Sagittal and coronal reformatted images are included. 85 mL of Isovue-300 was given intravenously. Recent fractures are present laterally in ribs six and seven on the left. There is no evidence of any abnormal soft tissue masses or adenopathy in the chest. Subsegmental atelectasis is present in the lung bases. There is no evidence of any pulmonary infiltrates. There is no evidence of any pleural effusion or other abnormal fluid collections. There is no evidence of any thoracic aortic aneurysm or dissection. No pneumothorax is seen. Old T4 and T5 compression fractures are incidentally noted. Procedure Note Leon Aviles MD - 06/01/2025 Exam: CT CHEST W CONTRAST Date/Time of Exam: 06/01/2025 11:42 AM Reason For Exam: Chest wall pain, nontraumatic, infection or inflammation suspected, xray done, Pleural effusion, malignancy suspected. Axial images were obtained through the chest. Sagittal and coronal reformatted images are included. 85 mL of Isovue-300 was given intravenously. Recent fractures are present laterally in ribs six and seven on the left. There is no evidence of any abnormal soft tissue masses or adenopathy in the chest. Subsegmental atelectasis is present in the lung bases. There is no evidence of any pulmonary infiltrates. There is no evidence of any pleural effusion or other abnormal fluid collections. There is no evidence of any thoracic aortic aneurysm or dissection. No pneumothorax is seen. Old T4 and T5 compression fractures are incidentally noted. IMPRESSION: 1. Recent six and seven left rib fractures. 2. No evidence of any pulmonary infiltrates. Adriana Kauffman APRN CT ORDERABLES Final R esult * (ABNORMAL) URINALYSIS WITH REFLEX MICROSCOPIC (06/01/2025 10:37 AM CDT) COLOR UA Yellow Pale to Dark Yellow 06/01/2025 10:48 AM T [facility] CLARITY UA Clear Clear 06/01/2025 10:48 AM CDT [facility] SPECIFIC GRAVITY UA 1.015 1.003 - 1.035 06/01/2025 10:48 AM [facility] PH UA 7.5 5.0 - 8.0 06/01/2025 10:48 AM [facility] LEUKOCYTE ESTERASE UA Negative Negative 06/01/2025 10:48 AM T [facility] NITRITE UA Negative Negative 06/01/2025 10:48 AM [facility] PROTEIN UA Trace(A) Negative 06/01/2025 10:48 AM CDT [facility] GLUCOSE UA 2+(A) Negative 06/01/2025 10:48 AM CDT [facility] KETONES UA Negative Negative 06/01/2025 10:48 AM CDT [facility] UROBILINOGEN UA 0.2 <2.0 mg/dL 10:48 AM CDT [facility] BILIRUBIN UA Negative Negative 06/01/2025 10:48 AM CDT [facility] BLOOD UA Negative Negative 06/01/2025 10:48 AM CDT [facility] Urine URINE SPECIMEN OBTAINED BY CLEAN CATCH PROCEDURE / Unknown Collection / Unknown 06/01/2025 10:37 AM CDT 06/01/2025 10:44 AM CDT Adriana Kauffman APRN URINE ORDERABLES Final Result Performing Organization Address City/[facility]/ZIP Co de Phone Number [facility] CLIA # [id number] [address] [place] [address] * URINE CULTURE (06/01/2025 10:37 AM CDT) Only the most recent of3 resultswithin the time period is included. CULTURE Polymicrobial growth consistent with normal urethral lala and/or colonizing bacteria 06/02/2025 12:31 PM CDT [facility] Urine URINE SPECIMEN OBTAINED BY CLEAN CATCH PROCEDURE / Unknown Collection / Unknown 06/01/2025 10:37 AM CDT 06/01/2025 10:44 AM CDT Adriana Kauffman APRN MICROBIOLOGY - GENERAL ORDERABLES Final Result [facility] CLIA # [id number] [address] [place] [address] * (ABNORMAL) BRAIN NATRIURETIC PEPTIDE, BNP OR PROBNP (06/01/2025 10:37 AM CDT) Only the most recent of2 resultswithin the time period is included. PROBNP, N TERMINAL 230(H) 0 - 125 pg/mL 06/01/2025 11:02 AM CDT [facility] Comment: INTERPRETIVE COMMENT based on diagnosis: Diagnostic NT pro-BNP cutoffs for Heart Failure in the absence of renal failure is suggested for the following ranges <75 years: <125 pg/mL >=75 years: <450 pg/mL Exclusionary rule out cut-point for Acute Decompensated Heart Failure(ADHF) All ages: <300 pg/mL Diagnostic NT pro-BNP cutoffs for Acute Decompensated Heart Failure(ADHF) in the absence of renal failure is suggested for the following ages <50 years: > 450 pg/mL 50-75 years: > 900 pg/mL >75 years: >1800 pg/mL Blood Venipuncture / Unknown 06/01/2025 10:37 AM CDT 06/01/2025 10:42 AM CDT us Adriana Kauffman APRN CHEMISTRY ORDERABLES Fi nal Result Performing Organization Address [facility] Co de Phone Number [facility] CLIA # [id number] [address] [place] [phone] * (ABNORMAL) C-REACTIVE PROTEIN (05/29/2025 4:35 PM CDT) CRP 7.7(H) <5.0 mg/L 05/29/2025 4:54 PM CDT [facility] Blood BLOOD SPECIMEN / Unknown Collection / Unknown 05/29/2025 4:35 PM CDT 05/29/2025 4:38 PM CDT us Lima Perez AUTO BODY MECHANIC CHEMISTRY ORDERABLES Final Res ult Performing Organization Address [facility]/ZIP Co de Phone Number [facility] CLIA # [id number] [address] [place] [phone] * (ABNORMAL) VITAMIN D 25 HYDROXY (05/16/2025 3:07 PM CDT) VITAMIN D, 25 [place], TOTAL 29(L) 30 - 100 ng/mL [facility] Comment: Vitamin D Status 25-OH Vitamin D: Deficiency: <20 ng/mL Insufficiency: 20 - 29 ng/mL Optimal: > or = 30 ng/mL For 25-OH Vitamin D testing on patients on D2-supplementation and patients for whom quantitation of D2 and D3 fractions is required, the [facility]) 25-OH VIT D, (D2,D3), LC/MS/MS is recommended: order code 51334 (patients >2yrs). See Note 1 Note 1 For additional information, please refer to http://education.iSTAR/faq/JXG916 (This link is being provided for informational/ educational purposes only.) FASTING:NO FASTING: NO Test Performed at: [facility] [address] [place] [address] Tanvir Montero MD Blood 05/16/2025 3:07 PM CDT 05/16/2025 3:10 PM CDT us Alfred Tracy MD CHEMISTRY ORDERABLES Final Res ult Performing Organization Address City/[facility]/ZIP Co de Phone Number [facility] [phone] [facility] [address] [place] [phone] * TSH (05/16/2025 3:07 PM CDT) Pathologist [facility] TSH 0.43 0.40 - 4.50 mIU/L [facility] Comment: Test Performed at: [facility] [address] [place] [address] Tanvir Montero MD Blood 05/16/2025 3:07 PM CDT 05/16/2025 3:10 PM CDT us Alfred Tracy MD CHEMISTRY ORDERABLES Final Res ult [facility] [phone] [facility] [address] * (ABNORMAL) HEMOGLOBIN A1C (05/16/2025 3:07 PM CDT) Pathologist [facility] HEMOGLOBIN A1C 6.5(H) <5.7 % [facility] Comment: For someone without known diabetes, a hemoglobin A1c value of 6.5% or greater indicates that they may have diabetes and this should be confirmed with a follow-up test. For someone with known diabetes, a value <7% indicates that their diabetes is well controlled and a value greater than or equal to 7% indicates suboptimal control. A1c targets should be individualized based on duration of diabetes, age, comorbid conditions, and other considerations. Currently, no consensus exists regarding use of hemoglobin A1c for diagnosis of diabetes for children. ESTIMATED AVERAGE GLUCOSE (MG/DL) 140 mg/dL [facility] ESTIMATED AVERAGE GLUCOSE (MMOL/L) 7.7 mmol/L [facility] Comment: FASTING:NO FASTING: NO Test Performed at: [facility] [address] Tanvir Montero MD Blood 05/16/2025 3:07 PM CDT 05/16/2025 3:10 PM CDT Alfred Tracy MD CHEMISTRY ORDERABLES Final Res ult [facility] [phone] [facility] [address] * MICROALBUMIN/CREATININE RATIO, RANDOM UR (05/11/2025 8:38 AM CDT) CREATININE, URINE 232 20 - 275 mg/dL [facility] ALBUMIN, URINE 1.8 See Note: mg/dL [facility] Comment: Reference Range: Reference Range Not established ALB/CREAT RATIO, URINE 8 <30 mg/g creat [facility] Comment: The ADA defines abnormalities in albumin excretion as follows: Albuminuria Category Result (mg/g creatinine) Normal to Mildly increased <30 Moderately increased 30-299 Severely increased > OR = 300 The ADA recommends that at least two of three specimens collected within a 3-6 month period be abnormal before considering a patient to be within a diagnostic category. Test Performed at: [facility] [address] [facility] [place] [address] Tanvir Montero MD Urine URINE SPECIMEN OBTAINED BY CLEAN CATCH PROCEDURE / Unknown 05/11/2025 8:38 AM CDT 05/12/2025 3:12 AM CDT us Nir Paulson MD URINE ORDERABLES Final Re sult [facility] [phone] [facility] [address] [address] [facility] [place] [address] * MRI LUMBAR WO CONTRAST (04/19/2025 4:17 PM CDT) Anatomical Region Laterality Modality Spine Magnetic Resonan ce 04/19/2025 4:17 PM CDT Impressions 04/19/2025 5:02 PM CDT IMPRESSION: Previous L4-S1 posterior decompression and fusion without evidence of hardware failure. Persistent mild to moderate right L5-S1 neural foraminal remaining. Degenerative changes within the upper lumbar spine with moderate to severe neuroforaminal narrowing. Narrative 04/19/2025 5:02 PM CDT Exam: MRI LUMBAR WO CONTRAST Date/Time of Exam: 04/19/2025 4:17 PM Reason For Exam: Low back pain, symptoms persist with > 6 wks treatment. Diagnosis: Chronic bilateral low back pain with bilateral sciatica; Chronic bilateral low back pain with bilateral sciatica; Chronic bilateral low back pain with bilateral sciatica; Spondylolisthesis of lumbar region; Lumbosacral spondylosis without myelopathy; S/P lumbar fusion. Technique: MRI of the lumbar spine was performed without the administration of intravenous contrast. Findings: Previous L4-S1 posterior decompression and fusion. No evidence of hardware failure. Mild retrolisthesis of L1 on L2, L2 on L3 and L3 on L4. No acute fracture or aggressive osseous lesion. The conus medullaris terminates at L1-2. The paraspinal musculature demonstrates moderate atrophy. The retroperitoneal structures demonstrate no acute abnormality. L1-2: Symmetric disc bulge and facet arthropathy with severe bilateral neural foraminal narrowing. L2-3: Symmetric disc bulge and facet arthropathy with severe right and moderate left neural foraminal narrowing. L3-4: Symmetric disc bulge and facet arthropathy. Severe bilateral neural foraminal narrowing. L4-5: Uncovered disc and facet arthropathy. Patent spinal canal and neural foramen. L5-S1: Posterior osteophyte formation facet arthropathy. Mild to moderate right neural foraminal narrowing. Procedure Note Santiago Warner, DO - 04/19/2025 Exam: MRI LUMBAR WO CONTRAST Date/Time of Exam: 04/19/2025 4:17 PM Reason For Exam: Low back pain, symptoms persist with > 6 wks treatment. Diagnosis: Chronic bilateral low back pain with bilateral sciatica; Chronic bilateral low back pain with bilateral sciatica; Chronic bilateral low back pain with bilateral sciatica; Spondylolisthesis of lumbar region; Lumbosacral spondylosis without myelopathy; S/P lumbar fusion. Technique: MRI of the lumbar spine was performed without the administration of intravenous contrast. Findings: Previous L4-S1 posterior decompression and fusion. No evidence of hardware failure. Mild retrolisthesis of L1 on L2, L2 on L3 and L3 on L4. No acute fracture or aggressive osseous lesion. The conus medullaris terminates at L1-2. The paraspinal musculature demonstrates moderate atrophy. The retroperitoneal structures demonstrate no acute abnormality. L1-2: Symmetric disc bulge and facet arthropathy with severe bilateral neural foraminal narrowing. L2-3: Symmetric disc bulge and facet arthropathy with severe right and moderate left neural foraminal narrowing. L3-4: Symmetric disc bulge and facet arthropathy. Severe bilateral neural foraminal narrowing. L4-5: Uncovered disc and facet arthropathy. Patent spinal canal and neural foramen. L5-S1: Posterior osteophyte formation facet arthropathy. Mild to moderate right neural foraminal narrowing. IMPRESSION: Previous L4-S1 posterior decompression and fusion without evidence of hardware failure. Persistent mild to moderate right L5-S1 neural foraminal remaining. Degenerative changes within the upper lumbar spine with moderate to severe neuroforaminal narrowing. us Oralia Elliott CLIENT EXPERIENCE CONSULTANT MR ORDERABLES Final Re sult * (ABNORMAL) POC URINALYSIS DIPSTICK AUTOMATED (03/29/2025 4:01 PM CDT) COLOR UA POC Dark Yellow Pale to Dark Yellow [facility] CLARITY UA POC Slightly Cloudy(A) Clear, Other [facility] GLUCOSE UA POC Negative Negative, Normal [facility] BILIRUBIN UA POC 1+(A) Negative [facility] KETONES UA POC Trace(A) Negative [facility] SPECIFIC GRAVITY UA POC >=1.030 1.000 - 1.030 [facility] BLOOD UA POC Trace(A) Negative [facility] PH UA POC 6.0 5.0 - 8.0 [facility] PROTEIN UA POC 2+(A) Negative [facility] UROBILINOGEN UA POC 0.2 <2.0 mg/dL [facility] NITRITE UA POC Negative Negative [facility] LEUKOCYTE ESTERASE UA POC Negative Negative [facility] KIT LOT NUMBER POC [phone] [facility] KIT EXP DATE POC 03/22/2026 [place] Urine 03/29/2025 4:01 PM CDT Oralia Frederick Earl CLIENT EXPERIENCE CONSULTANT POINT OF CARE TESTING Fi nal Result [facility] CLIA# [id number] [address] [place] [address] * XR FOOT 3+ VW LEFT (03/29/2025 3:59 PM CDT) Anatomical Region Laterality Modality Ankle / Foot Computed Radiogr aphy 03/29/2025 3:59 PM CDT Narrative 03/30/2025 5:46 AM CDT XR FOOT 3+ VW LEFT 03/29/2025 3:59 PM Reason For Exam: See Diagnosis. Diagnosis: Skin ulcer of toe of left foot, limited to breakdown of skin (CMS/HCC). COMPARISON: 02/28/2025 FINDINGS: Healed fracture of the fifth metatarsal noted. No dislocation or subluxation. No overt destructive process is seen to strongly suggest osteomyelitis. Reported soft tissue ulcer is not well visualized. Procedure Note Pola Dao MD - 03/30/2025 XR FOOT 3+ VW LEFT 03/29/2025 3:59 PM Reason For Exam: See Diagnosis. Diagnosis: Skin ulcer of toe of left foot, limited to breakdown of skin (CMS/HCC). COMPARISON: 02/28/2025 FINDINGS: Healed fracture of the fifth metatarsal noted. No dislocation or subluxation. No overt destructive process is seen to strongly suggest osteomyelitis. Reported soft tissue ulcer is not well visualized. Oralia Elliott CLIENT EXPERIENCE CONSULTANT DIAGNOSTIC IMAGING ORDER JANESSA Final Result * DIABETES EYE EXAM (07/18/2024 12:39 PM CARE CONSULTANT) Abstract Provider HEALTH MAINTENANCE Edited Resu lt - Final * MAMMO 3D SANDRA SCREEN BILAT W OR WO CAD (06/14/2024 3:45 PM CDT) Anatomical Region Laterality Modality Breast Bilateral Mammography, Dig ital Radiography Impressions 06/25/2024 2:39 PM CARE CONSULTANT : No mammographic evidence of malignancy. BI-RADS ASSESSMENT: 1 - Negative RECOMMENDATION: Routine annual screening mammography. Narrative 06/25/2024 2:39 PM CARE CONSULTANT EXAM: MAMMO SCRN BILAT 3D SANDRA W OR WO CAD INDICATION: Screening COMPARISON: 10/18/2018 MAMMO DIAGNOSTIC BILATERAL W OR WO CAD, 02/10/2018 MAMMO DIAGNOSTIC UNI LEFT W OR WO CAD, 05/31/2017 MAMMO DIAG UNI LEFT 3D SANDRA W OR WO CAD, and 05/24/2017 MAMMO SCREEN BILAT W OR WO CAD BREAST COMPOSITION: There are scattered areas of fibroglandular density. FINDINGS: RIGHT BREAST: There are no suspicious masses, calcifications, or areas of architectural distortion. LEFT BREAST: There are no suspicious masses, calcifications, or areas of architectural distortion. us Nir Paulson MD MAMMO ORDERABLES Final Re sult * (ABNORMAL) LIPID PANEL (01/04/2024 11:41 AM CDT) CHOLESTEROL 185 <200 mg/dL [facility] HDL 67 > OR = 50 mg/dL [facility] TRIGLYCERIDE 253(H) <150 mg/dL [facility] Comment: If a non-fasting specimen was collected, consider repeat triglyceride testing on a fasting specimen if clinically indicated. Vy et al. J. of Clin. Lipidol. 2015;9:129-169. LDL CALCULATED 85 mg/dL (calc) [facility] Comment: Reference range: <100 Desirable range <100 mg/dL for primary prevention; <70 mg/dL for patients with CHD or diabetic patients with > or = 2 CHD risk factors. LDL-C is now calculated using the Dread-Sykes calculation, which is a validated novel method providing better accuracy than the Friedewald equation in the estimation of LDL-C. Dread SS et al. JOSEF. 2013;310(19): 8441-2796 (http://education.iSTAR/faq/NPB092) CHOL/HDL RATIO 2.8 <5.0 (calc) [facility] TOTAL NON-HDL CHOL(LDL+VLDL) 118 <130 mg/dL (calc) [facility] Comment: For patients with diabetes plus 1 major ASCVD risk factor, treating to a non-HDL-C goal of <100 mg/dL (LDL-C of <70 mg/dL) is considered a therapeutic option. Test Performed at: [facility] [id number] [id number] Tanvir Montero MD Blood 01/04/2024 11:4 1 AM CDT 01/05/2024 3:09 AM CDT Alfred Tracy MD CHEMISTRY ORDERABLES Final Res ult [facility] [phone] [facility] [id number] [phone] from Last 3 Months or Most Recently Relevant to Health Maintenance Additional Health Concerns Infection Onset Date Last Indicated Parainfluenza 06/20/2025 06/20/2025 Insurance [facility] Medicaid [place] Care Teams Strategic Manager Relationship Specialty Start Date End Date Nir Paulson MD [address] [place] [id number] PCP - General Family Practice 10/13/21
--- OUTSIDE RECORDS SUMMARY | 2025-06-24 10:31 | XMS_ITS | Encounter Summary ---
Author Organization [facility] Address [address] [place] [address] Care Team Providers Care Milk Hauler Name Role Phone Veronica Carvajal MD Primary Care Provider [phone] Encounter Details Date Type Department Care Team ([facility] st Contact Info) Description 12/17/[address] 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 WORKER Gender Identity Not on file Sexual Orientation Not on file Occupation Industry Job Start Date Job End Date Not on file Not on file Not on file Not on file Not on file Not on file Not on file Not on file documented as of this encounter Plan of Treatment Not on file documented as of this encounter Visit Diagnoses Diagnosis Abnormal mammogram Abnormal mammogram, unspecified documented in this encounter Care Teams Milk Hauler Relationship Specialty Start Date End Date Veronica Carvajal MD [address] [address] PCP - General Family Practice 11/20/20 documented as of this encounter
--- OUTSIDE RECORDS SUMMARY | 2025-06-24 10:31 | XMS_ITS | Encounter Summary ---
Author Organization [facility] Address [address] [place] [address] Care Team Providers Care Pharmacy Services Representative Name Role Phone Nir Paulson MD Primary Care Provider [phone] Encounter Details Date Type Department Care Team (Late st Contact Info) Description 06/02/2025 Results Follow-Up [facility] Emergency Medicine [address] [facility] [address] [place] [address] Adriana Kauffman, LAND MEASURER [address] [facility] [address] [place] [address] URINE CULTURE Social History Tobacco Use Types Packs/Day Years [...] worry about transportation for future doctor visits, rock picker medication, etc.? No 2024 Housing Stability [...] on file Legal Sex Female 3:40 AM COSTUMER ASSISTANT Gender Identity Not on file Sexual Orientation Not on file documented as of this encounter Plan of Treatment Upcoming Encounters Date Type Department Care Team (Late st Contact Info) Description 06/25/2025 1:00 PM COSTUMER ASSISTANT [facility] [place] [address] [address] Oralia Elliott, BUTCHER HELPER [address] [facility] [address] [place] [address] 06/25/2025 2:00 PM COSTUMER ASSISTANT Appointment [facility] Ultrasound [place] [address] [address] Lima Perez NP [address] [place] [address] 06/25/2025 2:45 PM COSTUMER ASSISTANT Appointment [facility] CT Scan [place] [address] [address] Lima Perez NP [address] [place] [address] 07/04/2025 1:40 PM COSTUMER ASSISTANT Office Visit [facility] Orthopedics [place] [address] [facility] [address] [place] [address] Byron Rubi PA-C [address] [place] [address] 07/10/2025 1:00 PM COSTUMER ASSISTANT Office Visit [facility] [address] [place] [address] Berlin Summers PA [address] [place] [address] 08/08/2025 3:30 PM COSTUMER ASSISTANT Office Visit [facility] Douglas Zheng Olivier [address] [place] [address] Nanda Mg NP [address] [place] [address] 08/27/2025 2:20 PM COSTUMER ASSISTANT Telephone Check Up [facility] Neurosurgery [address] [place] [address] [place] [address] Martínez Han MD [address] [place] [address] 11/07/2025 2:40 PM CDT Office Visit [facility] Family Medicine [place] [address] [address] Nir Paulson MD [address] [address] 11/13/2025 2:30 PM CDT Office Visit [facility] Endocrinology [facility] [address] [place] [address] Alfred Tracy MD [address] [place] [address] 01/15/2026 8:45 AM CDT Office Visit [facility] Neurology - [place] [address] [place] [address] Martínez Han MD [address] [place] [address] Yaneth Bass MD [address] [place] [address] documented as of this encounter Visit Diagnoses Not on filedocumented in this encounter Additional Health Concerns Infection Onset Date Last Indicated Resolved Time R/O Respiratory 06/19/2025 06/20/2025 06/20/2025 6 :41 PM CDT Parainfluenza 06/20/2025 06/20/2025 documented as of this encounter Care Teams Pharmacy Services Representative Relationship Specialty Start Date End Date Nir Paulson MD [address] [facility] [place] [address] PCP - General Family Practice 10/13/21 documented as of this encounter
--- OUTSIDE RECORDS SUMMARY | 2025-06-24 10:31 | XMS_ITS | Encounter Summary ---
Author Organization [facility] Address [address] [place] [address] Care Team Providers Care Globe Tester Name Role Phone Nir Paulson MD Primary Care Provider [phone] Encounter Details Date Type Department Care Team (Late st Contact Info) Description 05/29/2025 Lab Requisition [facility] General Laboratory Services [place] [address] [place] [address] Lima Perez NP [address] [place] [address] Chest pain, unspecified; Localized edema Social History Tobacco Use Types Packs/Day Years [...] worry about transportation for future doctor visits, medicinal plant picker medication, etc.? No 2024 Housing Stability Answer Date Recorded Do you worry you won t have a steady place to sleep or struggle to pay rent or mortgage? No 06/01/2025 Utility Needs Answer Date Recorded Do you have difficulty payin g for utility costs (Talkable water or gas bills)? No 06/01/2025 Medication [...] on file Legal Sex Female 3:40 AM RETREAD OPERATOR Gender Identity Not on file Sexual Orientation Not on file documented as of this encounter Plan of Treatment Upcoming Encounters Date Type Department Care Team (Late st Contact Info) Description 06/25/2025 1:00 PM RETREAD OPERATOR [facility] [place] [address] [address] Oralia Elliott, PARKING METER INSTALLER [address] [facility] [address] [place] [address] 06/25/2025 2:00 PM RETREAD OPERATOR Appointment [facility] Ultrasound [place] [address] [address] Lima Perez NP [address] [place] [address] 06/25/2025 2:45 PM RETREAD OPERATOR Appointment [facility] CT Scan [place] [address] [address] Lima Perez NP [address] [place] [address] 07/04/2025 1:40 PM RETREAD OPERATOR Office Visit [facility] Orthopedics [place] [address] [facility] [address] [place] [address] Byron Rubi PA-C [address] [place] [address] 07/10/2025 1:00 PM RETREAD OPERATOR Office Visit [facility] [address] [place] [address] Berlin Summers PA [address] [place] [address] 08/08/2025 3:30 PM RETREAD OPERATOR Office Visit [facility] Douglas Zheng [place] [address] [place] [address] Nanda Mg NP [address] [place] [address] 08/27/2025 2:20 PM RETREAD OPERATOR Telephone Check Up [facility] Neurosurgery [address] [place] [address] [place] [address] Martínez Han MD [address] [place] [place] [address] 11/07/2025 2:40 PM CDT Office Visit [facility] Family Medicine [place] [address] [address] Nir Paulson MD [address] [address] 11/13/2025 2:30 PM CDT Office Visit [facility] Endocrinology [facility] [address] [place] [address] Alfred Tracy MD [address] [place] [address] 01/15/2026 8:45 AM CDT Office Visit [facility] Neurology - [place] [address] [place] [address] Martínez Han MD [address] [place] [address] [place] [address] Yaneth Bass MD [address] [place] [address] documented as of this encounter Procedures Procedure Name Priority Date/Time Associated Diagnosis Comments CBC WITH DIFFERENTIAL Stat 05/29/2025 4:35 PM CDT Chest pain, unspecified Localized edema C-REACTIVE PROTEIN Stat 05/29/2025 4: 35 PM CDT Chest pain, unspecified Localized edema BRAIN NATRIURETIC PEPTIDE, BNP OR PROBNP Stat 05/29/2025 4:35 PM CDT Chest pain, unspecified Localized edema COMPREHENSIVE METABOLIC PANEL Stat 05/29/2025 4:35 PM CDT Chest pain, unspecified Localized edema documented in this encounter Results * (ABNORMAL) CBC WITH DIFFERENTIAL (05/29/2025 4:35 PM CDT) WBC 8.4 4.0 - 10.0 K/uL 05/29/2025 4:41 PM [facility] RBC 4.16 3.93 - 5.22 M/uL 05/29/2025 4:41 PM [facility] HEMOGLOBIN 12.7 11.2 - 15.7 g/dL 05/29/2025 4:41 PM [facility] HEMATOCRIT 37.8 34.1 - 44.9 % 05/29/2025 4:41 PM [facility] MCV 90.9 79.4 - 94.8 fL 05/29/2025 4:41 PM [facility] MCH 30.5 25.6 - 32.2 pg 05/29/2025 4:41 PM [facility] MCHC 33.6 32.2 - 35.5 g/dL 05/29/2025 4:41 PM [facility] RDW 13.3 11.0 - 14.5 % 05/29/2025 4:41 PM [facility] RDW-STDEV 44.1 36.9 - 56.9 fL 05/29/2025 4:41 PM [facility] PLATELETS 388(H) 163 - 337 K/uL 05/29/2025 4:41 PM [facility] MPV 8.4(L) 10.0 - 14.8 fL 05/29/2025 4:41 PM [facility] NEUTROPHILS 82(H) 34 - 71 % 05/29/2025 4:41 PM [facility] LYMPHOCYTES 11(L) 19 - 52 % 05/29/2025 4:41 PM [facility] MONOCYTES 5 5 - 13 % 05/29/2025 4:41 PM [facility] EOSINOPHILS 0(L) 1 - 6 % 05/29/2025 4:41 PM [facility] BASOPHILS 1 0 - 1 % 05/29/2025 4:41 PM [facility] IMMATURE GRANULOCYTES 1 % 05/29/2025 4:41 PM [facility] NEUTROPHIL ABSOLUTE 6.87(H) 1.56 - 6.13 K/uL 05/29/2025 4:41 PM [facility] LYMPHOCYTE ABSOLUTE 0.92(L) 1.20 - 3.40 K/uL 05/29/2025 4:41 PM [facility] MONOCYTE ABSOLUTE 0.45(H) 0.24 - 0.36 K/uL 05/29/2025 4:41 PM [facility] EOSINOPHIL ABSOLUTE 0.00(L) 0.04 - 0.36 K/uL 05/29/2025 4:41 PM [facility] BASOPHILS ABSOLUTE 0.04 0.01 - 0.08 K/uL 05/29/2025 4:41 PM [facility] IMMATURE GRANULOCYTES ABSOLUTE 0.09 K/uL 05/29/2025 4:41 PM [facility] Blood BLOOD SPECIMEN / Unknown Collection / Unknown 05/29/2025 4:35 PM CDT 05/29/2025 4:38 PM CDT us Lima Chris EDUCATION REPORTER HEMATOLOGY ORDERABLES Final Re sult [facility] CLIA # [id number] [address] [place] [address] * (ABNORMAL) C-REACTIVE PROTEIN (05/29/2025 4:35 PM CDT) CRP 7.7(H) <5.0 mg/L 05/29/2025 4:54 PM CDT [facility] Blood BLOOD SPECIMEN / Unknown Collection / Unknown 05/29/2025 4:35 PM CDT 05/29/2025 4:38 PM CDT us Lima Omaha EDUCATION REPORTER CHEMISTRY ORDERABLES Final Res ult [facility] CLIA # [id number] [address] [place] [address] * (ABNORMAL) COMPREHENSIVE METABOLIC PANEL (05/29/2025 4:35 PM CDT) SODIUM 140 136 - 145 mmol/L 05/29/2025 4:54 PM CDT [facility] POTASSIUM 4.2 3.5 - 5.1 mmol/L 05/29/2025 4:54 PM CDT [facility] CHLORIDE 100 98 - 107 mmol/L 05/29/2025 4:54 PM CDT [facility] CO2 25 22 - 29 mmol/L 05/29/2025 4:54 PM CDT [facility] CALCIUM 10.1(H) 8.6 - 10.0 mg/dL 05/29/2025 4:54 PM CDT [facility] BUN 16 6 - 20 mg/dL 05/29/2025 4:54 PM CDT [facility] CREATININE 0.81 0.51 - 0.95 mg/dL 05/29/2025 4:54 PM CDT [facility] GLUCOSE 153(H) 74 - 99 mg/dL 05/29/2025 4:54 PM T [facility] TOTAL PROTEIN 7.0 6.6 - 8.7 g/dL 05/29/2025 4:54 PM [facility] ALBUMIN 4.3 3.5 - 5.2 g/dL 05/29/2025 4:54 PM [facility] BILIRUBIN TOTAL 0.2 0.0 - 1.2 mg/dL 05/29/2025 4:54 PM [facility] ALKALINE PHOSPHATASE 124(H) 35 - 104 U/L 05/29/2025 4:54 PM [facility] AST 31 0 - 35 U/L 05/29/2025 4:54 PM [facility] ALT 45(H) 0 - 35 U/L 05/29/2025 4:54 PM [facility] GFR >60 >=60 mL/min/1.7 3 sq meter 05/29/2025 4:54 PM T [facility] Comment:eGFR calculated with 2020 CKD-EPI equation. Vegetarian diet, extremely high or low muscle mass, and may affect results. Cystatin C with Glomerular Filtration Rate is a suitable alternative for these patients. ANION GAP 15 5 - 20 mmol/L 05/29/2025 4:54 PM [facility] Blood BLOOD SPECIMEN / Unknown Collection / Unknown 05/29/2025 4:35 PM CDT 05/29/2025 4:38 PM CDT us Lima Perez NP CHEMISTRY ORDERABLES Final Res ult [facility] CLIA # [id number] [address] [place] [address] * (ABNORMAL) BRAIN NATRIURETIC PEPTIDE, BNP OR PROBNP (05/29/2025 4:35 PM CDT) PROBNP, N TERMINAL 278(H) 0 - 125 pg/mL 05/29/2025 4:54 PM CDT [facility] Comment: INTERPRETIVE COMMENT based on diagnosis: Diagnostic [...] 900 pg/mL >75 years: >1800 pg/mL Blood BLOOD SPECIMEN / Unknown Collection / Unknown 05/29/2025 4:35 PM CDT 05/29/2025 4:38 PM CDT us Lima Perez EDUCATION REPORTER CHEMISTRY ORDERABLES Final Res ult [facility] CLIA # [id number] [address] [place] [address] documented in this encounter Visit Diagnoses Diagnosis Chest pain, unspecified Localized edema Edema documented in this encounter Additional Health Concerns Infection Onset Date Last Indicated Resolved Time R/O Respiratory 06/19/2025 06/20/2025 06/20/2025 6 :41 PM CDT Parainfluenza 06/20/2025 06/20/2025 documented as of this encounter Care Teams Globe Tester Relationship Specialty Start Date End Date Nir Paulson MD [address] [facility] [place] [address] PCP - General Family Practice 10/13/21 documented as of this encounter
--- OUTSIDE RECORDS SUMMARY | 2025-06-24 10:31 | XMS_ITS | Encounter Summary ---
Author Organization [facility] Address [address] [place] [address] Care Team Providers Care Care Navigator Name Role Phone Nir Paulson MD Primary Care Provider [phone] Reason for Visit * Reason Onset Date Comments Results 06/21/2025 Encounter Details Date Type Department Care Team (Late st Contact Info) Description 06/21/2025 Results Follow-Up [facility] Family Medicine [address] [address] Nir Paulson MD [address] [address] RESPIRATORY PATHOGEN PCR PANEL, XR CHEST PA AND LATERAL 2 VW Social History Tobacco Use Types Packs/Day Years [...] worry about transportation for future doctor visits, shrimp picker medication, etc.? 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 Voiced understanding. Suri SALAMANCA * Telephone Encounter - Suri Palacios RN - 06/21/2025 9:54 AM CDT ----- Message from Dr. Nir Paulson sent at 06/21/2025 9:49 AM CDT ----- Chest x-ray confirms small lower left pneumonia, this is consistent with her exam in the office, she is currently on doxycycline, will add Augmentin, patient should take both antibiotics together. ----- Message ----- From: [facility] Incoming Radiology Results Sent: 06/20/2025 11:06 AM CDT To: Nir Paulson MD * Telephone Encounter - Suri Palacios RN - 06/21/2025 9:54 AM CDT ----- Message from Dr. Nir Paulson sent at 06/21/2025 9:47 AM CDT ----- Respiratory pathogen panel tests for 22 different viruses and bacteria, parainfluenza was detected,this is a virus similar to the flu and likely is responsible for patient's current symptoms. There are no proven antivirals, continue current management as secondary bacterial infections can occur in the setting of parainfluenza. ----- Message ----- From: [facility], Background Sent: 06/20/2025 6:41 PM CDT To: Nir Paulson MD documented in this encounter Plan of Treatment Upcoming Encounters Date Type Department Care Team (Late st Contact Info) Description 06/25/2025 1:00 PM BRIDGE CRANE OPERATOR Appointment [facility] Services [place] [address] [address] Oralia Elliott, LARD MIXER [address] [facility] 60 [place] [address] 06/25/2025 2:00 PM BRIDGE CRANE OPERATOR Appointment [facility] Ultrasound [place] [address] [address] Lima Perez, PACKER AND CARRY OUT [address] [place] [address] 06/25/2025 2:45 PM BRIDGE CRANE OPERATOR Appointment [facility] CT Scan [place] [address] [address] Lima Perez, PACKER AND CARRY OUT [address] [place] [address] 07/04/2025 1:40 PM BRIDGE CRANE OPERATOR Office Visit [facility] Orthopedics [place] [address] [facility] [address] [place] [address] Byron Rubi PA-C [address] [place] [address] 07/10/2025 1:00 PM BRIDGE CRANE OPERATOR Office Visit [facility] [address] [place] [address] Berlin Summers PA [address] [place] [address] 08/08/2025 3:30 PM BRIDGE CRANE OPERATOR Office Visit [facility] Douglas Zheng Olivier [address] [place] [address] Nanda Mg NP [address] [place] [address] 08/27/2025 2:20 PM BRIDGE CRANE OPERATOR Telephone Check Up [facility] Neurosurgery [place] [address] [place] [address] Martínez Han MD [address] [place] [address] 11/07/2025 2:40 PM CDT Office Visit [facility] Family [facility] [place] [address] [address] Nir Paulson MD [address] [address] 11/13/2025 2:30 PM CDT Office Visit [facility] Endocrinology [facility] [address] [place] [address] Alfred Tracy MD [address] [place] [address] 01/15/2026 8:45 AM CDT Office Visit [facility] [place]rology - [place] [address] [place] [address] Martínez Han MD [address] [place] [address] Yaneth Bass MD [address] [facility] [address] [place] [address] documented as of this encounter Visit Diagnoses Not on filedocumented in this encounter Additional Health Concerns Infection Onset Date Last Indicated Resolved Time Parainfluenza 06/20/2025 06/20/2025 documented as of this encounter Care Teams Care Navigator Relationship Specialty Start Date End Date Nir Paulson MD [address] [facility] [place] [address] PCP - General Family Practice 10/13/21 documented as of this encounter
--- OUTSIDE RECORDS SUMMARY | 2025-06-24 10:31 | XMS_ITS | Encounter Summary ---
Author Organization [facility] Address [address] [place] [address] Care Team Providers Care Hosted Services Analyst Name Role Phone Veronica Carvajal MD Primary Care Provider Encounter Details Date Type Department Care Team (Late st Contact Info) Description 02/10/2018 Ancillary Orders [facility] [address] [facility] [address] [place] [address] Nir Paulson MD [address] [address] Screening for breast cancer Social History Tobacco Use Types Packs/Day Years Used Date Smoking Tobacco: Former Cigarettes 0.5 12 0 02/02/1984 - 02/02/1996 Smokeless Tobacco: Never Alcohol Use Standard Drinks/Week Comments No 0 (1 standard drink = 0.6 oz pur e alcohol) Comments No Sex and Gender Information Value Date Recorded Sex Assigned at Not on file 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 Gender Identity Not on file Sexual Orientation Not on file Occupation Industry Job Start Date Job End Date Not on file Not on file Not on file Not on file Not on file Not on file Not on file Not on file documented as of this encounter Plan of Treatment Not on file documented as of this encounter Visit Diagnoses Diagnosis Screening for breast cancer Breast screening, unspecified documented in this encounter Care Teams Hosted Services Analyst Relationship Specialty Start Date End Date Veronica Carvajal MD [address] [address] PCP - General Family Practice 11/20/20 documented as of this encounter
--- OUTSIDE RECORDS SUMMARY | 2025-06-24 10:31 | XMS_ITS | Encounter Summary ---
Author Organization [facility] Address [address] [place] [address] Care Team Providers Care Plaster Machine Operator Name Role Phone Nir Paulson MD Primary Care Provider [phone] Reason for Visit * Reason Comments Provider Call Encounter Details Date Type Department Care Team (Late st Contact Info) Description 06/21/2025 Telephone [facility] Family Medicine [address] [address] Nir Paulson MD [address] [address] Provider Call Social History Tobacco [...] have difficulty payin g for utility costs ([employer] water or gas bills)? No 06/01/2025 Medication [...] on file Legal Sex Female 3:40 AM SERVICE STATION CASHIER Gender Identity Not on file Sexual Orientation Not on file documented as of this encounter Miscellaneous Notes * Telephone Encounter - Arianna Serrato LPN - 06/21/2025 1:48 PM CDT Approval via Medicaid. [facility] DME notified. Arianna Serrato LPN, 06/21/2025 1:49 PM * Telephone Encounter - Anant Stover - 06/21/2025 11:26 AM CDT Copied from [facility] #[id number]. Topic: [id number] Call >> Jun 21, 2025 11:25 AM Anant Chase wrote: Caller is requesting to speak with Clinical Care Team. Caller Name: Mariam phan/ [employer] (Other) Callback Number: [phone] Is the caller a Physician, Nurse Practitioner or Physician Piece Marker [employer]? No Call Notes: Mariam states that an order for a nebulizer was received. They are needing a pre-cert started by care team in order to bill insurance. Is this addressing an immediate patient care need? No documented in this encounter Plan of Treatment Upcoming Encounters Date Type Department Care Team (Late st Contact Info) Description 06/25/2025 1:00 PM SERVICE STATION CASHIER Appointment [place] [employer] [facility] [address] [address] Oralia Elliott FNP [address] [facility] 60 [place] [address] 06/25/2025 2:00 PM SERVICE STATION CASHIER Appointment [facility] Ultrasound [place] [address] [place] [address] Lima Perez, CONSTANZA [address] [place] [address] 06/25/2025 2:45 PM SERVICE STATION CASHIER Appointment [facility] CT Scan [place] [address] [place] [address] Lima Perez NP [address] [place] [address] 07/04/2025 1:40 PM SERVICE STATION CASHIER Office Visit [facility] Orthopedics [place] [address] [place] [address] Byron Rubi PA-C [address] [place] [address] 07/10/2025 1:00 PM SERVICE STATION CASHIER Office Visit [facility] [address] [place] [address] Berlin Summers PA [address] [place] [address] 08/08/2025 3:30 PM SERVICE STATION CASHIER Office Visit [facility] Douglas Zheng [place] [address] [place] [address] Nanda Mg NP [address] [place] [address] 08/27/2025 2:20 PM SERVICE STATION CASHIER Telephone Check Up [facility] Neurosurgery [place] [address] [place] [address] Martínez Han MD [address] [place] [address] 11/07/2025 2:40 PM CDT Office Visit [facility] Medicine [place] [address] [address] Nir Paulson MD [address] [place] [address] 11/13/2025 2:30 PM CDT Office Visit [facility] [address] [place] [address] Alfred Tracy MD [address] [place] [address] 01/15/2026 8:45 AM CDT Office Visit [facility] Neurology - [place] [address] [place] [address] Martínez Han MD [address] [place] [address] Yaneth Bass MD [address] [place] [address] documented as of this encounter Visit Diagnoses Not on filedocumented in this encounter Additional Health Concerns Infection Onset Date Last Indicated Resolved Time Parainfluenza 06/20/2025 06/20/2025 documented as of this encounter Care Teams Plaster Machine Operator Relationship Specialty Start Date End Date Nir Paulson MD [address] [facility] [email or web address] [address] PCP - General Family Practice 10/13/21 documented as of this encounter
--- OUTSIDE RECORDS SUMMARY | 2025-06-24 10:31 | XMS_ITS | Encounter Summary ---
Author Organization [facility] Address [address] [place] [address] Care Team Providers Care Mercury Washer Name Role Phone Nir Paulson MD Primary Care Provider [phone] Reason for Visit * Reason Comments Provider Call Encounter Details Date Type Department Care Team (Late st Contact Info) Description 06/19/2025 Telephone [facility] Family Medicine [address] [address] Nir Paulson MD [address] [address] Provider Call Social History Tobacco [...] worry about transportation for future doctor visits, strip picker medication, etc.? No 2024 Housing Stability Answer Date Recorded Do you worry you won t have a steady place to sleep or struggle to pay rent or mortgage? No 06/01/2025 Utility Needs Answer Date Recorded Do you have difficulty payin g for utility costs ([employer] water or gas bills)? No 06/01/2025 Medication [...] on file Legal Sex Female 3:40 AM PERSONAL VEHICLE ADVISOR Gender Identity Not on file Sexual Orientation Not on file documented as of this encounter Miscellaneous Notes * Telephone Encounter - Arianna Serrato LPN - 06/19/2025 4:58 PM CDT Faxed again. Arianna Serrato LPN, 06/19/2025 4:58 PM * Telephone Encounter - Aneta Guerrero - 06/19/2025 4:23 PM CDT Copied from [facility] #[id number]. Topic: [id number] Call >> Jun 19, 2025 4:21 PM Aneta Reeves wrote: Caller is requesting to speak with Clinical Care Team. Caller Name: [employer] [facility] [employer]. Callback Number: Ph [phone] Fax [phone] Is the caller a Physician, Nurse Practitioner or Physician Manager Ed? No Call Notes: Please refax the nebulizer order to [employer]. They didn't get it. Is this addressing an immediate patient care need? No documented in this encounter Plan of Treatment Upcoming Encounters Date Type Department Care Team (Late st Contact Info) Description 06/25/2025 1:00 PM PERSONAL VEHICLE ADVISOR Appointment [facility] [address] [phone] EarlOralia echeverria, HATCH SUPERVISOR [address] [address] 06/25/2025 2:00 PM PERSONAL VEHICLE ADVISOR Appointment [facility] Ultrasound [place] [address] [place] [address] Lima Perez, CLAIMS ASSISTANT [address] [place] [address] 06/25/2025 2:45 PM PERSONAL VEHICLE ADVISOR Appointment [facility] CT Scan [place] [address] [place] [address] Lima Perez, CONSTANZA [address] [place] [address] 07/04/2025 1:40 PM PERSONAL VEHICLE ADVISOR Office Visit [facility] Orthopedics [place] [address] [place] [address] Byron Rubi PA-C [address] [place] [address] 07/10/2025 1:00 PM PERSONAL VEHICLE ADVISOR Office Visit [facility] [address] [place] [address] Berlin Summers PA [address] [place] [address] 08/08/2025 3:30 PM PERSONAL VEHICLE ADVISOR Office Visit [facility] Douglas Zheng [place] [address] [place] [address] Nanda Mg NP [address] [place] [address] 08/27/2025 2:20 PM PERSONAL VEHICLE ADVISOR Telephone Check Up [facility] Neurosurgery [address] [place] [address] [place] [address] Martínez Han MD [address] [place] [address] 11/07/2025 2:40 PM CDT Office Visit [facility] Medicine [place] [address] [place] [address] Nir Paulson MD [address] [place] [address] 11/13/2025 2:30 PM CDT Office Visit [facility] [address] [place] [address] Alfred Tracy MD [address] [place] [address] 01/15/2026 8:45 AM CDT Office Visit [facility] Neurology - [place] [address] [place] [address] Martínez Han MD [address] [place] [address] Yaneth Bass MD [address] [place] [address] documented as of this encounter Visit Diagnoses Not on filedocumented in this encounter Additional Health Concerns Infection Onset Date Last Indicated Resolved Time R/O Respiratory 06/19/2025 06/20/2025 06/20/2025 6 :41 PM CDT documented as of this encounter Care Teams Mercury Washer Relationship Specialty Start Date End Date Nir Pualson MD [address] [facility] [place] [address] PCP - General Family Practice 10/13/21 documented as of this encounter
--- OUTSIDE RECORDS SUMMARY | 2025-06-24 10:32 | XMS_ITS | Encounter Summary ---
Author Organization [facility] Address [address] [place] [address] Care Team Providers Care Supervisor White Sugar Name Role Phone Veronica Carvajal MD Primary Care Provider [phone] Encounter Details Date Type Department Care Team (Latest Contact Info) Description 05/11/2000 Outpatient Historical [facility] Nir Soto MD [address] [place] [id number] Headache(784.0) (Primary Dx); Depressive disorder, not elsewhere classified Social History Tobacco Use Types Packs/Day Years Used Date Smoking Tobacco: Never Assessed Comments Unknown Sex and Gender Information Value Date Recorded Sex Assigned at Not on file 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
--- OUTSIDE RECORDS SUMMARY | 2025-06-24 10:32 | XMS_ITS | Encounter Summary ---
Author Organization [facility] Address [address] [place] [address] Care Team Providers Care Quill Worker Name Role Phone Veronica Carvajal MD Primary Care Provider [phone] Encounter Details Date Type Department Care Team (Latest Contact Info) Description 11/05/2000 Outpatient Historical [facility] Nir Soto MD [address] [place] [address] Headache(784.0) (Primary Dx); Depressive disorder, not elsewhere classified Social History Tobacco Use Types Packs/Day Years Used Date Smoking Tobacco: Never Assessed Comments Unknown Sex and Gender Information Value Date Recorded Sex Assigned at Not on file 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
--- OUTSIDE RECORDS SUMMARY | 2025-06-24 10:32 | XMS_ITS | Encounter Summary ---
Author Organization [facility] Address [address] [place] [address] Care Team Providers Care Early Childhood Teacher Name Role Phone Veronica Carvajal MD Primary Care Provider Encounter Details Date Type Department Care Team (Latest Contact Info) Description 05/15/1999 Outpatient Historical [facility] Nir Soto MD [address] [place] [address] Other diseases of trachea and bronchus, not elsewhere classified (Primary Dx); Acute upper respiratory infections of unspecified site Social History Tobacco Use Types Packs/Day Years Used Date Smoking Tobacco: Never Assessed Comments Unknown Sex and Gender Information Value Date Recorded Sex Assigned at Not on file 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
--- OUTSIDE RECORDS SUMMARY | 2025-06-24 10:32 | XMS_ITS | Encounter Summary ---
Author Organization [facility] Address [address] [place] [address] Care Team Providers Care Tennis Coach Name Role Phone Veronica Carvajal MD Primary Care Provider Encounter Details Date Type Department Care Team (Latest Contact Info) Description 05/28/2000 Outpatient Historical [facility] Nir Soto MD [address] [place] [address] Acute sinusitis, unspecified (Primary Dx); Acute bronchitis Social History Tobacco Use Types Packs/Day Years Used Date Smoking Tobacco: Never Assessed Comments Unknown Sex and Gender Information Value Date Recorded Sex Assigned at Not on file 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
--- OUTSIDE RECORDS SUMMARY | 2025-06-24 10:32 | XMS_ITS | Encounter Summary ---
Author Organization [email or web address] Address [address] [place] [address] Care Team Providers Care Electrical Calibrator Name Role Phone Veronica Carvajal MD Primary Care Provider [phone] Encounter Details Date Type Department Care Team (Latest Contact Info) Description 04/10/2002 Outpatient Historical [facility] Nir Soto MD [address] [place] [address] TENSION HEADACHE (Primary Dx) Social History Tobacco Use Types Packs/Day Years Used Date Smoking Tobacco: Never Assessed Comments Unknown Sex and Gender Information Value Date Recorded Sex Assigned at Not on file 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 ROTOR WINDER Gender Identity Not on file Sexual Orientation Not on file documented as of this encounter Plan of Treatment Not on file documented as of this encounter Visit Diagnoses Diagnosis Tension headache- Primary documented in this encounter Care Teams Electrical Calibrator Relationship Specialty Start Date End Date Veronica Carvajal MD [address] [address] PCP - General Family Practice 11/20/20 documented as of this encounter
--- OUTSIDE RECORDS SUMMARY | 2025-06-24 10:32 | XMS_ITS | Encounter Summary ---
Author Organization [facility] Address [address] [place] [address] Care Team Providers Care Residential Case Manager Name Role Phone Veronica Carvajal MD Primary Care Provider [phone] Reason for Referral * Outpatient Services (Routine) - Closed Specialty Diagnoses / Procedures Referred By Contac t Referred To Contact Diagnoses Abnormal findings on diagnostic imaging of breast Procedures MAMMO POST US/STEREO GUIDED PROCEDURE LT Tom Steen Jr., MD Phone: tel: fax: [facility] Pre-Registration [place] CALL TO MAKE APPOINTMENT ONLY [address] [place] [address] Phone: tel: fax: Referral ID Status Reason Start Date Expiration Date Visits Re quested Visits Authorized [id number] Closed 05/31/2017 07/01/2018 1 1 * Outpatient Services (Routine) - Closed Specialty Diagnoses / Procedures Referred By Contac t Referred To Contact Diagnoses Abnormal findings on diagnostic imaging of breast Procedures MAMMO BREAST US BIOPSY LEFT Tom Steen Jr., MD Phone: tel: fax: [facility] Pre-Registration [place] CALL TO MAKE APPOINTMENT ONLY [address] [place] [address] Phone: tel: fax: Referral ID Status Reason Start Date Expiration Date Visits Re quested Visits Authorized [id number] Closed 05/31/2017 07/01/2018 1 1 Encounter Details Date Type Department Care Team (Late st Contact Info) Description 05/31/2017 Ancillary Orders [facility] Breast [place] [address] [place] [phone] Tom Steen Jr., MD [address] [place] [phone] Abnormal findings on diagnostic imaging of breast Social History Tobacco Use Types Packs/Day Years Used Date Smoking Tobacco: Former Cigarettes 0.5 12 0 02/02/1984 - 02/02/1996 Smokeless Tobacco: Never Alcohol Use Standard Drinks/Week Comments No 0 (1 standard drink = 0.6 oz pur e alcohol) Comments No Sex and Gender Information Value Date Recorded Sex Assigned at Not on file 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 This is a benign and concordant result. Recommend repeat left breast diagnostic mammogram in 6 months to ensure stability. [id number] Narrative 06/03/2017 3:46 PM CDT EXAM: MAMMO BREAST US BIOPSY LEFT, MAMMO POST US/STEREO GUIDED PROCEDURE LT, 06/02/2017 8:09 AM PRE-PROCEDURE DIAGNOSIS: Indeterminate left breast mass POST-PROCEDURE DIAGNOSIS: Same COMPARISON: 05/31/2017 FINDINGS: Consent: Following a thorough discussion of the risks, benefits and alternatives of the procedure written informed consent was obtained. Time out was performed. Position: The patient was placed in a supine position on the US table and a preliminary scan was obtained. The abnormality was again identified in the left breast. Preparation: The patient's skin was cleansed, and the skin and subcutaneous tissues anesthetized with 1% Xylocaine. Procedure: A coaxial needle was inserted into the skin. A 14-gauge Bard needle was placed through the coaxial needle into the biopsy site. Multiple core samples were obtained. A butterfly-shaped biopsy clip was positioned into the site. The biopsy device was removed and handheld pressure was applied. The estimated blood loss is minimal. The patient tolerated the procedure well without evidence of immediate complications. Post-procedure: A left digital mammogram in the ML and CC projections was submitted for review. This demonstrates biopsy clip in appropriate position. Tom Steen Jr., MD MAMMO ORDERABLES Jodie keene Result * MAMMO BREAST US BIOPSY LEFT (06/02/2017 8:09 AM CDT) Anatomical Region Laterality Modality Breast Left Ultrasound Tissue SPECIMEN FROM BREAST / Unknown 06/02/2017 8:11 AM CDT Impressions 06/03/2017 3:46 PM CDT : Technically successful ultrasound-guided biopsy of the breast. 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 This is a benign and concordant result. Recommend repeat left breast diagnostic mammogram in 6 months to ensure stability. [id number] Narrative 06/03/2017 3:46 PM CDT EXAM: MAMMO BREAST US BIOPSY LEFT, MAMMO POST US/STEREO GUIDED PROCEDURE LT, 06/02/2017 8:09 AM PRE-PROCEDURE DIAGNOSIS: Indeterminate left breast mass POST-PROCEDURE DIAGNOSIS: Same COMPARISON: 05/31/2017 FINDINGS: Consent: Following a thorough discussion of the risks, benefits and alternatives of the procedure written informed consent was obtained. Time out was performed. Position: The patient was placed in a supine position on the US table and a preliminary scan was obtained. The abnormality was again identified in the left breast. Preparation: The patient's skin was cleansed, and the skin and subcutaneous tissues anesthetized with 1% Xylocaine. Procedure: A coaxial needle was inserted into the skin. A 14-gauge Bard needle was placed through the coaxial needle into the biopsy site. Multiple core samples were obtained. A butterfly-shaped biopsy clip was positioned into the site. The biopsy device was removed and handheld pressure was applied. The estimated blood loss is minimal. The patient tolerated the procedure well without evidence of immediate complications. Post-procedure: A left digital mammogram in the ML and CC projections was submitted for review. This demonstrates biopsy clip in appropriate position. Tom Steen Jr., MD MAMMO ORDERABLES Jodie l Result documented in this encounter Visit Diagnoses Diagnosis Abnormal findings on diagnostic imaging of breast Other (abnormal) findings on radiological examination of breast Abnormal findings on diagnostic imaging of breast Other (abnormal) findings on radiological examination of breast Abnormal findings on diagnostic imaging of breast Other (abnormal) findings on radiological examination of breast documented in this encounter Care Teams Residential Case Manager Relationship Specialty Start Date End Date Veronica Carvajal MD [address] [facility] [address] [place] [phone] PCP - General Family Practice 11/20/20 documented as of this encounter
--- OUTSIDE RECORDS SUMMARY | 2025-06-24 10:32 | XMS_ITS | Encounter Summary ---
Author Organization [facility] Address [address] [place] [address] Care Team Providers Care Casting Machine Set Up Operator Name Role Phone Veronica Carvajal MD Primary Care Provider Encounter Details Date Type Department Care Team (Latest Contact Info) Description 10/09/2002 Outpatient Historical [facility] Nir Soto MD [address] [place] [phone] CHEST PAIN NOS (Primary Dx); SOMATIC DYSFUNCTION NEC Social History Tobacco Use Types Packs/Day Years Used Date Smoking Tobacco: Never Assessed Comments Unknown Sex and Gender Information Value Date Recorded Sex Assigned at Not on file 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
--- OUTSIDE RECORDS SUMMARY | 2025-06-24 10:32 | XMS_ITS | Encounter Summary ---
Author Organization [facility] Address [address] [place] [address] Care Team Providers Care Manager Case Management Name Role Phone Nir Paulson MD Primary Care Provider [phone] Reason for Visit * Reason Onset Date Comments Results 09/14/2024 Encounter Details Date Type Department Care Team (Late st Contact Info) Description 09/14/2024 Results Follow-Up [facility] [place] [address] [address] Oralia Elliott, [facility] [address] [address] URIC ACID Social History Tobacco Use Types Packs/Day Years Used Date Smoking Tobacco: Former Cigarettes 0.5 15 0 02/01/1981 - 02/02/1996 Passive Smoke Exposure: Past Smokeless Tobacco: Never Alcohol Use Standard Drinks/Week Comments No 0 (1 standard drink = 0.6 oz pur e alcohol) Feeling Safe Answer Date Recorded Are you in a relationship wi th someone who hurts you emotionally and/or physically? No 05/25/2023 Comments No Sex and Gender Information Value Date Recorded Sex Assigned at Not on file Legal Sex Female 3:40 AM CLIENT RELATIONS SPECIALIST Gender Identity Not on file Sexual Orientation Not on file documented as of this encounter Miscellaneous Notes * Telephone Encounter - Suri Palacios RN - 09/14/2024 2:48 PM CLIENT RELATIONS SPECIALIST 09/14/2024 2:48 PM No answer. No voicemail or answering machine. Will continue to try to reach patient/caregiver. . Ifpatient/caregiver calls back, contact center please tell caller to review the information which canbe accessed via [facility] and call back with any questions. Suri RN NT RELATIONS SPECIALIST * Telephone Encounter - Suri Palacios RN - 09/14/2024 2:48 PM CLIENT RELATIONS SPECIALIST ----- Message from Oralia Elliott sent at 09/14/2024 2:40 PM CLIENT RELATIONS SPECIALIST ----- Uric acid is normal NEYDA Ramos, 09/14/2024 2:40 PM NT RELATIONS SPECIALIST documented in this encounter Plan of Treatment Upcoming Encounters Date Type Department Care Team (Late st Contact Info) Description 06/25/2025 1:00 PM CLIENT RELATIONS SPECIALIST [facility] [place] [address] [phone] Oralia Elliott FNP [address] [facility] [address] [place] [phone] 06/25/2025 2:00 PM CLIENT RELATIONS SPECIALIST Appointment [facility] Ultrasound [place] [address] [phone] Lima Perez, [address] [place] [phone] 06/25/2025 2:45 PM CLIENT RELATIONS SPECIALIST Appointment [facility] CT Scan [place] [address] [facility] [address] [place] [address] Lima Perez, [address]STAN[address] [place] [phone] 07/04/2025 1:40 PM CLIENT RELATIONS SPECIALIST Office Visit [facility] [place] [address] [place] [address] Byron Rubi PA-C [address] [place] [address] 07/10/2025 1:00 PM CLIENT RELATIONS SPECIALIST Office Visit [facility] [address] [place] [address] Berlin Summers PA [address] [place] [address] 08/08/2025 3:30 PM CLIENT RELATIONS SPECIALIST Office Visit [facility] Douglas Aguayo [address] [place] [address] Nanda Mg NP [address] [place] [address] 08/27/2025 2:20 PM CLIENT RELATIONS SPECIALIST Telephone Check Up [facility] [address] [place] [address] Martínez Han MD [address] [place] [address] 11/07/2025 2:40 PM CDT Office Visit [facility] [place] [address] [phone] Nir Paulson MD [address] [address] 11/13/2025 2:30 PM CDT Office Visit [facility] [address] [place] [address] Alfred Tracy MD [address] [place] [address] 01/15/2026 8:45 AM CDT Office Visit [facility] - [place] [address] [place] [address] Martínez Han MD [address] [place] [address] Yaneth Bass MD [address] [place] [address] documented as of this encounter Visit Diagnoses Not on filedocumented in this encounter Additional Health Concerns Infection Onset Date Last Indicated Resolved Time R/O Respiratory 06/19/2025 06/20/2025 06/20/2025 6 :41 PM CDT Parainfluenza 06/20/2025 06/20/2025 documented as of this encounter Care Teams Manager Case Management Relationship Specialty Start Date End Date Nir Paulson MD [address] [facility] [place] [phone] PCP - General Family Practice 10/13/21 documented as of this encounter
--- OUTSIDE RECORDS SUMMARY | 2025-06-24 10:32 | XMS_ITS | Encounter Summary ---
Author Organization [facility] Address [address] [place] [address] Care Team Providers Care Facing Baster Name Role Phone Veronica Carvajal MD Primary Care Provider [phone] Reason for Referral * Outpatient Services (Routine) - Closed Specialty Diagnoses / Procedures Referred By Contac t Referred To Contact Diagnoses Inconclusive mammography Procedures MAMMO BREAST US LEFT LTD Tom Steen Jr., MD Phone: tel: fax: [facility] Pre-Registration [place] CALL TO MAKE APPOINTMENT ONLY [address] [place] [address] Phone: tel: fax: Referral ID Status Reason Start Date Expiration Date Visits Re quested Visits Authorized [id number] Closed 05/25/2017 06/25/2018 1 1 * Outpatient Services (Routine) - Closed Specialty Diagnoses / Procedures Referred By Contac t Referred To Contact Diagnoses Inconclusive mammography Procedures MAMMO DIAG UNI LEFT 3D SANDRA W OR WO CAD Tom Steen Jr., MD Phone: tel: fax: [facility] Pre-Registration [place] CALL TO MAKE APPOINTMENT ONLY [address] [place] [address] Phone: tel: fax: Referral ID Status Reason Start Date Expiration Date Visits Re quested Visits Authorized [id number] Closed 05/25/2017 06/25/2018 1 1 Encounter Details Date Type Department Care Team (Latest Contact Info) Description 05/25/2017 Ancillary Orders [facility] [address] [place] [phone] Tom Steen Jr., MD [address] [place] [phone] Inconclusive mammography Social History Tobacco Use Types Packs/Day Years Used Date Smoking Tobacco: Former Cigarettes 0.5 12 0 02/02/1984 - 02/02/1996 Smokeless Tobacco: Never Alcohol Use Standard Drinks/Week Comments No 0 (1 standard drink = 0.6 oz pur e alcohol) Comments No Sex and Gender Information Value Date Recorded Sex Assigned at Not on file 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 Gender Identity Not on file Sexual Orientation Not on file Occupation Industry Job Start Date Job End Date Not on file Not on file Not on file Not on file Not on file Not on file Not on file Not on file documented as of this encounter Plan of Treatment Not on file documented as of this encounter Results * (ABNORMAL) MAMMO BREAST US LEFT LTD (05/31/2017 2:54 PM CDT) Anatomical Region Laterality Modality Left Ultrasound 05/31/2017 2:54 PM CDT Narrative 06/01/2017 7:25 AM CDT MAMMO DIAG UNI LEFT 3D SANDRA W OR WO CAD, MAMMO BREAST US LEFT LTD INDICATION FOR EXAMINATION: Inconclusive mammography COMPARISONS: Mammogram dated 05/24/2017. BREAST COMPOSITION: Heterogeneously dense which may obscure small masses. FINDINGS: 3D MLO and CC digital tomosynthesis images were acquired and synthesized 2D images (C view) were generated. This digital mammogram was also analyzed by the Computer Aided Detection System CAD). There is a persistent oval circumscribed, approximately 2 cm, mass within the upper outer quadrant of the left breast at mid depth. A left breast ultrasound was performed. Static sonographic images of the left breast were obtained with Doppler interrogation. At 1:00, a 5 cm oval hypoechoic 1.7 x 1.2 x 1.6 cm mass with predominantly circumscribed margins; however, angular margins are also noted. This mass demonstrates no posterior acoustic shadowing or internal blood flow. Biopsy is recommended. ASSESSMENT: Suspicious abnormality. BI-RADS 4. RECOMMENDATIONS: Ultrasound-guided left breast biopsy. Patient received a result/recommendation letter. [id number] Procedure Note Natanael Salazar MD - 06/01/2017 MAMMO DIAG UNI LEFT 3D SANDRA W OR WO CAD, MAMMO BREAST US LEFT LTD INDICATION FOR EXAMINATION: Inconclusive mammography COMPARISONS: Mammogram dated 05/24/2017. BREAST COMPOSITION: Heterogeneously dense which may obscure small masses. FINDINGS: 3D MLO and CC digital tomosynthesis images were acquired and synthesized 2D images (C view) were generated. This digital mammogram was also analyzed by the Computer Aided Detection System CAD). There is a persistent oval circumscribed, approximately 2 cm, mass within the upper outer quadrant of the left breast at mid depth. A left breast ultrasound was performed. Static sonographic images of the left breast were obtained with Doppler interrogation. At 1:00, a 5 cm oval hypoechoic 1.7 x 1.2 x 1.6 cm mass with predominantly circumscribed margins; however, angular margins are also noted. This mass demonstrates no posterior acoustic shadowing or internal blood flow. Biopsy is recommended. ASSESSMENT: Suspicious abnormality. BI-RADS 4. RECOMMENDATIONS: Ultrasound-guided left breast biopsy. Patient received a result/recommendation letter. [id number] us Tom Steen Jr., MD MAMMO ORDERABLES Jodie keene Result * (ABNORMAL) MAMMO DIAG UNI LEFT 3D SANDRA W OR WO CAD (05/31/2017 2:22 PM CDT) Anatomical Region Laterality Modality Breast Left Mammography 05/31/2017 2:22 PM CDT Narrative 06/01/2017 7:25 AM CDT MAMMO DIAG UNI LEFT 3D SNADRA W OR WO CAD, MAMMO BREAST US LEFT LTD INDICATION FOR EXAMINATION: Inconclusive mammography COMPARISONS: Mammogram dated 05/24/2017. BREAST COMPOSITION: Heterogeneously dense which may obscure small masses. FINDINGS: 3D MLO and CC digital tomosynthesis images were acquired and synthesized 2D images (C view) were generated. This digital mammogram was also analyzed by the Computer Aided Detection System CAD). There is a persistent oval circumscribed, approximately 2 cm, mass within the upper outer quadrant of the left breast at mid depth. A left breast ultrasound was performed. Static sonographic images of the left breast were obtained with Doppler interrogation. At 1:00, a 5 cm oval hypoechoic 1.7 x 1.2 x 1.6 cm mass with predominantly circumscribed margins; however, angular margins are also noted. This mass demonstrates no posterior acoustic shadowing or internal blood flow. Biopsy is recommended. ASSESSMENT: Suspicious abnormality. BI-RADS 4. RECOMMENDATIONS: Ultrasound-guided left breast biopsy. Patient received a result/recommendation letter. [id number] Procedure Note Natanael Salazar MD - 06/01/2017 MAMMO DIAG UNI LEFT 3D SANDRA W OR WO CAD, MAMMO BREAST US LEFT LTD INDICATION FOR EXAMINATION: Inconclusive mammography COMPARISONS: Mammogram dated 05/24/2017. BREAST COMPOSITION: Heterogeneously dense which may obscure small masses. FINDINGS: 3D MLO and CC digital tomosynthesis images were acquired and synthesized 2D images (C view) were generated. This digital mammogram was also analyzed by the Computer Aided Detection System CAD). There is a persistent oval circumscribed, approximately 2 cm, mass within the upper outer quadrant of the left breast at mid depth. A left breast ultrasound was performed. Static sonographic images of the left breast were obtained with Doppler interrogation. At 1:00, a 5 cm oval hypoechoic 1.7 x 1.2 x 1.6 cm mass with predominantly circumscribed margins; however, angular margins are also noted. This mass demonstrates no posterior acoustic shadowing or internal blood flow. Biopsy is recommended. ASSESSMENT: Suspicious abnormality. BI-RADS 4. RECOMMENDATIONS: Ultrasound-guided left breast biopsy. Patient received a result/recommendation letter. [id number] Tom Steen Jr., MD MAMMO ORDERABLES Jodie l Result documented in this encounter Visit Diagnoses Diagnosis Inconclusive mammography Inconclusive mammogram Inconclusive mammography Inconclusive mammogram Inconclusive mammography Inconclusive mammogram documented in this encounter Care Teams Facing Baster Relationship Specialty Start Date End Date Veronica Carvajal MD [address] [phone] PCP - General Family Practice 11/20/20 documented as of this encounter
--- OUTSIDE RECORDS SUMMARY | 2025-06-24 10:32 | XMS_ITS | Encounter Summary ---
Author Organization [facility] Address [address] [place] [address] Care Team Providers Care Workers Compensation Specialist Name Role Phone Veronica Carvajal MD Primary Care Provider Encounter Details Date Type Department Care Team (Latest Contact Info) Description 04/13/2000 Outpatient Historical [facility] Nir Soto MD [address] [place] [address] Headache(784.0) (Primary Dx); Tension headache; Anxiety state, unspecified; Depressive disorder, not elsewhere classified Social History Tobacco Use Types Packs/Day Years Used Date Smoking Tobacco: Never Assessed Comments Unknown Sex and Gender Information Value Date Recorded Sex Assigned at Not on file 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
--- OUTSIDE RECORDS SUMMARY | 2025-06-24 10:32 | XMS_ITS | Clinical Summary ---
[facility] Organization [facility] Address [address] [place] [address] Care Team Providers Care Video Game Programmer Name Role Phone Veronica Carvajal MD Primary Care Provider Allergies Active Allergy Reactions Criticality Noted Date Comments Albuterol Rash Low 08/20/2017 Certolizumab Pegol Swelling Low 06/04/2014 Diphenhydramine Hcl Other (See Comments) Medium 2018 insomnia Lisinopril Other (See Comments) 03/23/2017 Cough Pregabalin Nausea and Vomiting Low 01/03/2019 Medications multivitamin (DAILY-ART) tablet Take 1 Tab by mouth daily. Active furosemide (LASIX) 20 mg tabletIndications: Benign hypertension TAKE ONE TABLET BY MOUTH EVERY DAY NEEDED FOR EDEMA 90 Tablet 1 8 Active HYDROcodone-acetam inophen (NORCO) 7.5-325 mg Tablet TK 1 T PO Q 6 H PRN FOR PAIN. FILL ON OR AFTER 01/28/2020. 0 Active OTHERIndications:L umbar radiculopathy,Spon dylolisthesis of lumbar region 1 time daily as needed for Other (See Comment) (when up and active). Provide aspen [place] 631 lumbar brace Suggested vendors: [phone] [employer] [phone] Bach 1 Each 0 Active Dulera 200-5 mcg/actuation inhaler INHALE 2 PUFFS BY MOUTH TWICE DAILY 13 Gram 5 1 Active fluticasone propionate (FLONASE) 50 mcg/spray [place], Suspension nasal inhaler INSTILL 1-2 SPRAYS IN EACH NOSTRIL DAILY 16 Gram 5 1 Active azelastine (ASTELIN) 137 mcg/actuation nasal spray INSTILL 1-2 SPRAYS IN EACH NOSTRIL EVERY 12 HOURS NEEDED FOR CONGESTION 30 mL 5 1 Active spironolactone (ALDACTONE) 50 mg tabletIndications: Benign hypertension Take 1 Tablet (50 mg) by mouth 2 times daily. 180 Tablet 1 1 Active metFORMIN (GLUCOPHAGE) 500 mg tablet Take 1 Tablet (500 mg) by mouth 2 times daily with meals. 180 Tablet 3 1 Active amLODIPine (NORVASC) 5 mg tablet Take 1 Tablet (5 mg) by mouth daily. 90 Tablet 1 1 Active conjugated estrogens (Premarin) 0.625 mg/gram vaginal cream INSERT 0.5 GRAMS VAGINALLY 2 TIMES A WEEK. 30 Gram 2 1 Active Spiriva with HandiHaler 18 mcg capsule INHALE ONE CAPSULE VIA HANDIHALER ONCE DAILY 1 Active losartan (COZAAR) 100 mg tabletIndications: Benign hypertension TAKE 1 TABLET BY MOUTH EVERY DAY 90 Tablet 1 1 Active methenamine hippurate (HIPREX) 1 gram TabletIndications: Recurrent UTI Take 1 Tablet (1,000 mg) by mouth 2 times daily. 180 Tablet 1 Active Phentermine 30 mg CapsuleIndications :Severe obesity (BMI 35.0-39.9) with comorbidity (CMS/HCC) Take 30 mg by mouth daily. 30 Capsule 4 1 Active famotidine (PEPCID) 40 mg tabletIndications: Gastroesophageal reflux disease without esophagitis Take 1 Tablet (40 mg) by mouth 2 times daily. 180 Tablet 1 1 Active promethazine (PHENERGAN) 25 mg tabletIndications: Chronic migraine,Nausea TAKE 1 TABLET BY MOUTH EVERY 6 NEEDED FOR FOR NAUSEA AND VOMITING 30 Tablet 1 1 Active levalbuterol HFA (XOPENEX HFA) 45 mcg/Actuation HFA Aerosol InhalerIndications :Moderate persistent asthma without complication INHALE 2 PUFFS BY MOUTH EVERY 6 HOURS NEEDED FOR SHORTNESS OF BREATH 15 Gram 5 1 Active levocetirizine (Xyzal) 5 mg tablet Take 5 mg by mouth late in the day. Active hydrocortisone (CORTEF) 20 mg tabletIndications: Adrenal insufficiency due to corticosteroid withdrawal,Moderat e persistent asthma without complication Take 3 Tablets (60 mg) by mouth daily. 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 09/16/2020 Gastroesophageal reflux disease without esophagi tis 08/09/2018 Chronic migraine without aur a, intractable, without status migrainosus 12/16/2017 Atopic dermatitis 10/28/2017 Moderate persistent asthma without complication 09/10/2017 Chronic migraine 09/10/2017 Benign hypertension 09/10/2017 Immunosuppression 09/10/2017 Rectocele 04/09/2017 Hematuria 03/12/2017 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 Primary osteoarthritis of both feet 11/11/2016 Tenosynovitis of left foot 10/28/2016 Freiberg's infraction 10/28/2016 Tailor's bunion of left foot 10/28/2016 Neuroma of second interspace of left foot 2016 Ovarian cyst, bilateral 07/15/2015 Seronegative rheumatoid arthritis 06/28/2015 Tendinitis of right rotator cuff 06/28/2015 De Quervain's tenosynovitis, right 06/28/2015 Bilateral carpal tunnel syndrome 06/28/2015 H/O chronic inflammatory arthritis 05/29/2015 Fibromyalgia 05/29/2015 Severe obesity (BMI 35.0-39.9) with comorbidity 05/21/2015 meterman (current) use of systemic steroids Prediabetes 05/21/2015 Abdominal pain Resolved Problems Problem Noted Date Diagnosed Date Resolved Date Diverticulitis of large inte vianca with perforation without bleeding 12/26/2018 01/06/2019 IC (interstitial cystitis) 11/11/2017 0 09/16/2020 ERRONEOUS ENCOUNTER--DISREGARD 01/14/2017 09/10/2017 Cyst, thyroid 06/30/2016 12/21/2020 On prednisone therapy 05/29/20152017 Chronic back pain greater th an 3 months duration 05/29/2015 09/10/2017 Acute diverticulitis 019 Sigmoid diverticulitis 01/06 Immunizations Immunization Administration Dates Next Due (ADACEL/BOOSTRIX)(10 YR UP) TDAP VACCINE, 0.5ML, IM 09/24/2020 (PNEUMOVAX 23)(50 YRS UP) PN EUMOCOCCAL POLYSACCHARIDE (PPV23) 0.5 ML, IM 12/25/2020 INFLUENZA VACCINE QUADRIVALE NT 3 YR UP PF IM 05/30/2015 Influenza Seasonal Unspecifi ed Formulation IM 06/06/2020,06/22/2018,06/22/2017,05/23 Influenza Vaccine Tri Split 4+ Im 2019,06/22/2018,06/22/2017,05/23 Family History Medical History Relation Name Comments [...] 0 02/02/1984 - 02/02/1996 Smokeless Tobacco: Never Tobacco Cessation:Counseling Given: Yes Alcohol Use Standard Drinks/Week Comments No 0 (1 standard drink = 0.6 oz pur e alcohol) Comments No Sex and Gender Information Value Date Recorded Sex Assigned at Not on file 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 Gender Identity Not on file Sexual Orientation Not on file Occupation Industry Job Start Date Job End Date Not on file Not on file Not on file Not on file Not on file Not on file Not on file Not on file Last Filed Vital Signs Vital Sign Reading Time Taken Comments Blood Pressure 161/96 01/30/2021 12:31 PM CDT Pulse 93 01/30/2021 12:31 PM CDT Temperature 36.6 C (97.8 F) 01/30/2021 11:45 AM CDT Respiratory Rate 16 01/30/2021 12:31 PM CDT Oxygen Saturation 98% 01/30/2021 12:31 PM CDT Inhaled Oxygen Concentration - - Weight 105.7 kg (233 lb) 01/30/2021 11:45 AM CDT Height 160 cm (5' 3 ) 01/30/2021 11:45 AM CDT Body Mass Index 41.27 01/30/2021 11:45 AM CDT Plan of Treatment Health Maintenance Due Date Last Done Comments DIABETES ANNUAL FOOT EXAM 1986 DIABETES MICROALBUMIN ANNUAL SCREEN 1986 HEPATITIS B VACCINES (1 of 3 - 19+ 3-dose series) 1987 ZOSTER VACCINE (1 of 2) 1987 HPV/Cotest (21-29) 1989 CERVICAL CANCER SCREENING 1998 HPV/Cotest (30-65) 1998 PAP SMEAR 1998 FIT-DNA Q 3 years 2013 FIT/FOBT Q 1 year 2013 Flex Sig/CT Colonography Q 5 years 2013 LDL CHOLESTEROL ANNUAL 07/20/2018 7, 12/24/2016, 05/30/2015 BREAST CANCER SCREENING 10/18/2019 10/18/19 19, 02/10/2018, 05/31/2017, Additional history exists DIABETES HBA1C Q 6 MONTHS 03/24/20212020, 04/02/2020, 11/16/2018, Additional history exists DIABETES ANNUAL RETINAL EXAM 05/20/2023 05/20/2022 Preventative Visit-Managed Medicaid 07/29/2024 07/28/2023, 07/27/2022, 04/03/2021, Additional history exists INFLUENZA VACCINE (#1) 2025 , 06/06/2020, 06/22/2018, Additional history exists COLORECTAL SCREENING 03/22/2029 03/22/2019 Colorectal Cancer Screening 03/22/2029 DTAP/TDAP/TD VACCINES (2 - T d or Tdap) 09/24/2030 09/24/2020 Medical Devices Implanted Type Area Vending Machine Coin Collector Device Identifier Shelf Expiration Date Model / Serial / Lot Tightrope Btb Acl [id number] - Sn/A Implanted:Qty: 1 on 06/13/2014 by Onel Ross MD at [facility] [place] Right: Knee [employer] 02/19/2019 [id number] / N/A / [id number] Mesh Ventralight St 4x6in [id number] - Sna Implanted:Qty: 1 on 09/28/2018 by Andre Law MD at [facility] Mesh N/A: Abdomen CR [employer]ARD[employer] 01/18/2020 [id number] / NA / [id number] Description:Soaked in Ropiva cristian 0.5% 100mg/20mL. Lot [id number], exp 02/11 Screw Biocomp Intrfrnc 9x35mm [id number] - [id number] Implanted:Qty: 1 on 06/13/2014 by Onel Ross MD at [facility] [place] Right: Knee [employer] 03/22/2015 [id number] / / [id number] Procedures Procedure Name Priority Date/Time Associated Diagnosis Comments HEMOGLOBIN A1C Routine 09/24/2020 10:42 AM HR ANALYST Type 2 diabetes mellitus without complication, without long-term current use of insulin ([facility]) MAMMO DIAGNOSTIC BILATERAL W OR WO CAD Routine 10/18/2018 3:42 PM HR ANALYST Abnormal mammogram LIPID PANEL Routine 07/20/2017 3:32 PM HR ANALYST Seronegative rheumatoid arthritis ([facility]) Essential hypertension Hypertriglyceridemi a from Last 3 Months or Most Recently Relevant to Health Maintenance Results * (ABNORMAL) HEMOGLOBIN A1C (09/24/2020 10:42 AM HR ANALYST) HEMOGLOBIN A1C 7.0(H) See Comment % 09/24/2020 9:03 PM HR ANALYST [facility] EST. AVG GLUCOSE, A1C 154 mg/dL 09/24/2020 9:03 PM HR ANALYST [facility] Blood Collection / Unknown 09/24/2020 10:42 AM HR ANALYST 09/24/2020 8:38 PM HR ANALYST Narrative [facility] - 09/24/2020 9:03 PM HR ANALYST HGB A1C INTERPRETATION NORMAL: <5.7% PRE-DIABETES: 5.7 - 6.4% DIABETES: 6.5% OR GREATER Falsely low A1C measurements can occur when: 1. Anemia and/or hemolytic anemia is present. 2. Hemoglobin variants present. 3. Renal failure. 4. Transfusion of blood product in the last 120 days. We recommend ordering a fructosamine test([id number]) to more accurately assess glycemic status if any of the above conditions are present. us [place] JOHN CHEMISTRY ORDERABLES Final Re sult [facility] CLIA# [id number] [address] [place] [address] * MAMMO DIAGNOSTIC BILATERAL W OR WO CAD (10/18/2018 3:42 PM HR ANALYST) Anatomical Region Laterality Modality Breast Bilateral Mammography 10/18/2018 3:42 PM HR ANALYST Impressions 10/20/2018 5:59 AM HR ANALYST : No mammographic evidence of malignancy. Stable postbiopsy changes of the left breast. Recommend returning to bilateral annual screening mammography in one year. The patient was given verbal and written results/recommendations. BI-RADS ASSESSMENT: 2 - Benign RECOMMENDATION: Bilateral annual screening mammography [id number] Narrative 10/20/2018 5:59 AM HR ANALYST EXAM: MAMMO DIAGNOSTIC BILATERAL W OR WO [...] calcifications, or architectural distortions in either breast. us Nir Paulson MD MAMMO ORDERABLES Final Re sult * (ABNORMAL) LIPID PANEL (07/20/2017 3:32 PM HR ANALYST) CHOLESTEROL 235(H) <200 mg/dL 07/26/2017 8:46 AM [facility] TRIGLYCERIDE 162(H) <150 mg/dL 07/26/2017 8:46 AM [facility] HDL 62(H) 40 - 59 mg/dL 07/26/2017 8:46 AM [facility] LDL CALCULATED 141(H) <100 mg/dL 07/26/2017 8:46 AM [facility] NON-HDL CHOLESTEROL 173(H) <130 mg/dL 07/26/2017 8:46 AM [facility] Blood Collection / Unknown 07/20/2017 3:32 PM HR ANALYST 07/26/2017 8:32 AM HR ANALYST [facility] - 07/26/2017 8:46 AM HR ANALYST TOTAL CHOLESTEROL mg/dL Desirable <200 Borderline high 200-239 High >=240 TRIGLYCERIDES mg/dL Normal <150 Borderline high 150-199 High 200-499 Very high >=500 HDL CHOLESTEROL mg/dL Low <40 Normal 40-59 Desirable >=60 NON HDL CHOLESTEROL mg/dL Optimal <130 Near Optimal 130-159 Borderline High 160-189 Very High >=190 Calculated LDL mg/dL Optimal <100 Near Optimal 100-129 Borderline High 130-159 High 160-189 Very High >=190 ATPIII Guidelines Reference Ranges for Lipid Panels (NCEP/AMA) us Tom Steen Jr., MD CHEMISTRY ORDERABLES Final Result [facility] CHRISTIE# [id number] [facility] [place] [id number] from Last 3 Months or Most Recently Relevant to Health Maintenance Insurance [place] RX INFOCROSSING Medicaid [place] Advance Directives For more information, please contact: [phone] * Full Code (Latest Code Status on File) Date Activated Date Inactivated Comments 03/22/2019 11:37 AM 03/22/2019 3:25 PM * Full Code Date Activated Date Inactivated Comments 01/03/2019 6:02 PM 01/06/2019 4:01 PM * Full Code Date Activated Date Inactivated Comments 09/28/2018 6:51 AM 09/28/2018 9:38 AM * Full Code Date Activated Date Inactivated Comments 09/28/2018 6:42 AM 09/28/2018 6:51 AM * Full Code Date Activated Date Inactivated Comments 04/09/2017 2:52 PM 04/09/2017 11:59 PM Care Teams Video Game Programmer Relationship Specialty Start Date End Date Veronica Carvajal MD [address] [phone] PCP - General Family Practice 11/20/20
--- OUTSIDE RECORDS SUMMARY | 2025-06-24 10:32 | XMS_ITS | Encounter Summary ---
Author Organization [facility] Address [address] [place] [address] Care Team Providers Care Payroll Secretary Name Role Phone Nir Paulson MD Primary Care Provider [phone] Encounter Details Date Type Department Care Team ([facility] Contact Info) Description 11/02/2024 Lab Requisition [facility] Laboratory Services [place] [address] [facility] [address] [place] [phone] EarlOralia echeverria, CASE PACKER AND SEALER [address] [address] Cramp and spasm; Spontaneous ecchymoses Social History Tobacco Use Types Packs/Day Years [...] on file Legal Sex Female 3:40 AM FLIGHT ENGINEER MANAGER Gender Identity Not on file Sexual Orientation Not on file documented as of this encounter Plan of Treatment Upcoming Encounters Date Type Department Care Team ([facility] Contact Info) Description 06/25/2025 1:00 PM FLIGHT ENGINEER MANAGER Appointment [facility] [employer] [facility] [address] [facility] [address] [place] [address] EarlOralia, CASE PACKER AND SEALER [address] [facility] [address] [place] [address] 06/25/2025 2:00 PM FLIGHT ENGINEER MANAGER Appointment [facility] Ultrasound [place] [address] [place] [address] Lima Perez, CONSTANZA [address] [place] [address] 06/25/2025 2:45 PM FLIGHT ENGINEER MANAGER Appointment [facility] CT Scan [place] [address] [place] [address] Lima Perez, CONSTANZA [address] [place] [address] 07/04/2025 1:40 PM FLIGHT ENGINEER MANAGER Office Visit [facility] Orthopedics [place] [address] [place] [address] Byron Rubi PA-C [address] [place] [address] 07/10/2025 1:00 PM FLIGHT ENGINEER MANAGER Office Visit [facility] [address] [place] [address] [place] Summers PA [address] [place] [address] 08/08/2025 3:30 PM FLIGHT ENGINEER MANAGER Office Visit [facility] Douglas Norm Iredell [address] [place] [address] Nanda Mg NP [address] [place] [address] 08/27/2025 2:20 PM FLIGHT ENGINEER MANAGER Telephone Check Up [facility] Neurosurgery [address] [place] [address] Martínez Han MD [address] [place] [address] 11/07/2025 2:40 PM CDT Office Visit [facility] Family Medicine [place] [address] [place] [address] Nir Paulson MD [address] [place] [address] 11/13/2025 2:30 PM CDT Office Visit [facility] Endocrinology [facility] [address] [place] [address] Alfred Tracy MD [address] [place] [address] 01/15/2026 8:45 AM CDT Office Visit [facility] Neurology - [place] [address] [place] [address] Martínez Han MD [address] [place] [address] Yaneth Bass MD [address] [place] [address] documented as of this encounter Procedures Procedure Name Priority Date/Time Associated Diagnosis Comments CBC WITH DIFFERENTIAL Stat 11/02/2024 3:30 PM CDT Cramp and spasm Spontaneous ecchymoses MAGNESIUM LEVEL Stat 11/02/2024 3:30 PM CDT Cramp and spasm Spontaneous ecchymoses CK Stat 11/02/2024 3:30 PM CDT Cramp and spasm Spontaneous ecchymoses COMPREHENSIVE METABOLIC PANEL Stat 11/02/2024 3:30 PM CDT Cramp and spasm Spontaneous ecchymoses documented in this encounter Results * CK (11/02/2024 3:30 PM CDT) CK 133 26 - 192 U/L 11/02/2024 3:59 PM CDT [facility] Blood BLOOD SPECIMEN / Unknown Collection / Unknown 11/02/2024 3:30 PM CDT 11/02/2024 3:37 PM CDT us [employer] [facility] CHEMISTRY ORDERABLES Fin al Result Performing Organization Address City/[facility]/ZIP Co de Phone Number [facility] CLIA # [id number] [address] [place] [address] * MAGNESIUM LEVEL (11/02/2024 3:30 PM CDT) Pathologist [facility] MAGNESIUM 2.2 1.6 - 2.6 mg/dL 11/02/2024 3:59 PM CDT [facility] Blood BLOOD SPECIMEN / Unknown Collection / Unknown 11/02/2024 3:30 PM CDT 11/02/2024 3:37 PM CDT us [employer] CASE PACKER AND SEALER CHEMISTRY ORDERABLES Fin al Result [facility] CLIA # [id number] [address] [place] [address] * (ABNORMAL) COMPREHENSIVE METABOLIC PANEL (11/02/2024 3:30 PM CDT) SODIUM 136 136 - 145 mmol/L 11/02/2024 3:59 PM CDT [facility] POTASSIUM 4.6 3.5 - 5.1 mmol/L 11/02/2024 3:59 PM [facility] CHLORIDE 97(L) 98 - 107 mmol/L 11/02/2024 3:59 PM [facility] CO2 28 22 - 29 mmol/L 11/02/2024 3:59 PM [facility] CALCIUM 9.6 8.6 - 10.0 mg/dL 11/02/2024 3:59 PM [facility] BUN 19 6 - 20 mg/dL 11/02/2024 3:59 PM [facility] CREATININE 0.84 0.51 - 0.95 mg/dL 11/02/2024 3:59 PM [facility] GLUCOSE 181(H) 74 - 99 mg/dL 11/02/2024 3:59 PM [facility] TOTAL PROTEIN 7.0 6.6 - 8.7 g/dL 11/02/2024 3:59 PM [facility] ALBUMIN 4.3 4.0 - 4.9 g/dL 11/02/2024 3:59 PM [facility] BILIRUBIN TOTAL 0.3 <=1.2 mg/dL 11/02/2024 3:59 PM [facility] ALKALINE PHOSPHATASE 91 35 - 104 U/L 11/02/2024 3:59 PM [facility] AST 25 0 - 35 U/L 11/02/2024 3:59 PM [facility] ALT 29 0 - 35 U/L 11/02/2024 3:59 PM [facility] GFR >60 >=60 mL/min/1.7 3 sq meter 11/02/2024 3:59 PM [facility] Comment:eGFR calculated with 2020 CKD-EPI equation. Vegetarian diet, extremely high or low muscle mass, and may affect results. Cystatin C with Glomerular Filtration Rate is a suitable alternative for these patients. ANION GAP 11 5 - 20 mmol/L 11/02/2024 3:59 PM [facility] Blood BLOOD SPECIMEN / Unknown Collection / Unknown 11/02/2024 3:30 PM CDT 11/02/2024 3:37 PM CDT Oralia Elliott CASE PACKER AND SEALER CHEMISTRY ORDERABLES Griffin garza Result [facility] CLIA # [id number] [address] [place] [address] * (ABNORMAL) CBC WITH DIFFERENTIAL (11/02/2024 3:30 PM CDT) Pathologist [facility] WBC 11.0(H) 4.0 - 10.0 K/uL 11/02/2024 3:41 PM CDT [facility] RBC 4.00 3.93 - 5.22 M/uL 11/02/2024 3:41 PM T [facility] HEMOGLOBIN 12.1 11.2 - 15.7 g/dL 11/02/2024 3:41 PM T [facility] HEMATOCRIT 36.8 34.1 - 44.9 % 11/02/2024 3:41 PM T [facility] MCV 92.0 79.4 - 94.8 fL 11/02/2024 3:41 PM T [facility] MCH 30.3 25.6 - 32.2 pg 11/02/2024 3:41 PM [facility] MCHC 32.9 32.2 - 35.5 g/dL 11/02/2024 3:41 PM T [facility] RDW 15.5(H) 11.0 - 14.5 % 11/02/2024 3:41 PM [facility] RDW-STDEV 52.7 36.9 - 56.9 fL 11/02/2024 3:41 PM [facility] PLATELETS 504(H) 163 - 337 K/uL 11/02/2024 3:41 PM [facility] MPV 8.6(L) 10.0 - 14.8 fL 11/02/2024 3:41 PM T [facility] NEUTROPHILS 76(H) 34 - 71 % 11/02/2024 3:41 PM T [facility] LYMPHOCYTES 16(L) 19 - 52 % 11/02/2024 3:41 PM T [facility] MONOCYTES 7 5 - 13 % 11/02/2024 3:41 PM [facility] EOSINOPHILS 0(L) 1 - 6 % 11/02/2024 3:41 PM [facility] BASOPHILS 1 0 - 1 % 11/02/2024 3:41 PM [facility] IMMATURE GRANULOCYTES 1 % 11/02/2024 3:41 PM [facility] NEUTROPHIL ABSOLUTE 8.33(H) 1.56 - 6.13 K/uL 11/02/2024 3:41 PM [facility] LYMPHOCYTE ABSOLUTE 1.75 1.20 - 3.40 K/uL 11/02/2024 3:41 PM T [facility] MONOCYTE ABSOLUTE 0.71(H) 0.24 - 0.36 K/uL 11/02/2024 3:41 PM T [facility] EOSINOPHIL ABSOLUTE 0.02(L) 0.04 - 0.36 K/uL 11/02/2024 3:41 PM [facility] BASOPHILS ABSOLUTE 0.09(H) 0.01 - 0.08 K/uL 11/02/2024 3:41 PM [facility] IMMATURE GRANULOCYTES ABSOLUTE 0.09 K/uL 11/02/2024 3:41 PM [facility] Blood BLOOD SPECIMEN / Unknown Collection / Unknown 11/02/2024 3:30 PM CDT 11/02/2024 3:37 PM CDT us Oralia Elliott CASE PACKER AND SEALER HEMATOLOGY ORDERABLES Fi nal Result [facility] CLIA # [id number] [address] [place] [address] documented in this encounter Visit Diagnoses Diagnosis Cramp and spasm Spontaneous ecchymoses documented in this encounter Additional Health Concerns Infection Onset Date Last Indicated Resolved Time R/O Respiratory 06/19/2025 06/20/2025 06/20/2025 6 :41 PM CDT Parainfluenza 06/20/2025 06/20/2025 documented as of this encounter Care Teams Payroll Secretary Relationship Specialty Start Date End Date Nir Paulson MD [address] [place] [address] PCP - General Family Practice 10/13/21 documented as of this encounter
--- OUTSIDE RECORDS SUMMARY | 2025-06-24 10:32 | XMS_ITS | Encounter Summary ---
Author Organization [facility] Address [address] [place] [address] Care Team Providers Care Animal Nutrition Teacher Name Role Phone Veronica Carvajal MD Primary Care Provider Encounter Details Date Type Department Care Team (Latest Contact Info) Description 02/14/2001 Outpatient Historical [facility] Nir Soto MD [address] [place] [id number] Headache(784.0) (Primary Dx) Social History Tobacco Use Types Packs/Day Years Used Date Smoking Tobacco: Never Assessed Comments Unknown Sex and Gender Information Value Date Recorded Sex Assigned at Not on file 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 SIZE MIXER Gender Identity Not on file Sexual Orientation Not on file documented as of this encounter Plan of Treatment Not on file documented as of this encounter Visit Diagnoses Diagnosis Headache(784.0)- Primary Headache documented in this encounter Care Teams Animal Nutrition Teacher Relationship Specialty Start Date End Date Veronica Carvajal MD [address] [facility] [address] [place] [address] PCP - General Family Practice 11/20/20 documented as of this encounter
--- OUTSIDE RECORDS SUMMARY | 2025-06-24 10:32 | XMS_ITS | Encounter Summary ---
Author Organization [facility] Address [address] [place] [address] Care Team Providers Care Forming Yardage Control Operator Name Role Phone Veronica Carvajal MD Primary Care Provider [phone]- [phone] Encounter Details Date Type Department Care Team (Late st Contact Info) Description 09/22/2018 Ancillary Orders [facility] Pain Management [address] [place] [address] Shannen Harrison PA [address] [place] [address] Chronic bilateral low back pain with bilateral sciatica; Subluxation of L4-L5 lumbar vertebra, sequela Social History Tobacco Use Types Packs/Day Years Used Date Smoking Tobacco: Former Cigarettes 0.5 12 0 02/02/1984 - 02/02/1996 Smokeless Tobacco: Never Alcohol Use Standard Drinks/Week Comments No 0 (1 standard drink = 0.6 oz pur e alcohol) Comments No Sex and Gender Information Value Date Recorded Sex Assigned at Not on file 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 SENIOR HEALTH PHYSICS TECHNICIAN Gender Identity Not on file Sexual Orientation Not on file Occupation Industry Job Start Date Job End Date Not on file Not on file Not on file Not on file Not on file Not on file Not on file Not on file documented as of this encounter Plan of Treatment Not on file documented as of this encounter Results * XR LUMBAR SPINE 4+ VW (09/22/2018 8:45 AM SENIOR HEALTH PHYSICS TECHNICIAN) Anatomical Region Laterality Modality Spine Computed Radiogr aphy 09/22/2018 8:45 AM SENIOR HEALTH PHYSICS TECHNICIAN Impressions 09/22/2018 3:42 PM SENIOR HEALTH PHYSICS TECHNICIAN IMPRESSION: Please see below. Exam: XR LUMBAR SPINE 4+ VW Date/Time of Exam: 09/22/2018 8:45 AM Reason For Exam: See Diagnosis. Diagnosis: Chronic bilateral low back pain with bilateral sciatica; Chronic bilateral low back pain with bilateral sciatica; Chronic bilateral low back pain with bilateral sciatica; Subluxation of L4-L5 lumbar vertebra, sequela. Comparison: 10/22/2017. Findings: Stable height and alignment of the lumbar vertebra including a slight retrolisthesis at L1-2 and mild anterior subluxation at L4-5. Slight increase in the subluxation at L4-5 with flexion and a slight decrease with extension. Stable superior L5 endplate sclerosis. Mild multilevel endplate degenerative changes. Multilevel lower lumbar facet arthrosis. IMPRESSION: 1. Evidence of minimal instability at L4-5 with flexion and extension. 2. Multilevel degenerative changes. [id number] Narrative Procedure Note Brayan Roman MD - 09/22/2018 IMPRESSION: Please see below. Exam: XR LUMBAR SPINE 4+ VW Date/Time of Exam: 09/22/2018 8:45 AM Reason For Exam: See Diagnosis. Diagnosis: Chronic bilateral low back pain with bilateral sciatica; Chronic bilateral low back pain with bilateral sciatica; Chronic bilateral low back pain with bilateral sciatica; Subluxation of L4-L5 lumbar vertebra, sequela. Comparison: 10/22/2017. Findings: Stable height and alignment of the lumbar vertebra including a slight retrolisthesis at L1-2 and mild anterior subluxation at L4-5. Slight increase in the subluxation at L4-5 with flexion and a slight decrease with extension. Stable superior L5 endplate sclerosis. Mild multilevel endplate degenerative changes. Multilevel lower lumbar facet arthrosis. IMPRESSION: 1. Evidence of minimal instability at L4-5 with flexion and extension. 2. Multilevel degenerative changes. [id number] Shannen JOHN DIAGNOSTIC IMAGING ORDERABLES Final Result documented in this encounter Visit Diagnoses Diagnosis Chronic bilateral low back pain with bilateral sciatica Subluxation of L4-L5 lumbar vertebra, sequela Chronic bilateral low back pain with bilateral sciatica Subluxation of L4-L5 lumbar vertebra, sequela documented in this encounter Care Teams Forming Yardage Control Operator Relationship Specialty Start Date End Date Veronica Carvajal MD [address] [address] PCP - General Family Practice 11/20/20 documented as of this encounter
--- OUTSIDE RECORDS SUMMARY | 2025-06-24 10:32 | XMS_ITS | Encounter Summary ---
Author Organization [facility] Address [address] [place] [address] Care Team Providers Care Manager University Name Role Phone Nir Paulson MD Primary Care Provider [phone] [phone] Encounter Details Date Type Department Care Team (Latest Contact Info) Description 04/18/2025 Results Follow-Up [facility] Family Medicine [place] [address] [address] Marnie Burns, [facility] [address] [address] COMPREHENSIVE METABOLIC PANEL, CBC WITH DIFFERENTIAL Social History Tobacco Use Types Packs/Day Years [...] on file Legal Sex Female 3:40 AM FORGING ENGINEER Gender Identity Not on file Sexual Orientation Not on file documented as of this encounter Plan of Treatment Upcoming Encounters Date Type Department Care Team (Late st Contact Info) Description 06/25/2025 1:00 PM FORGING ENGINEER [facility] [place] [address] [address] Oralia Elliott, FLORAL SPECIALIST [address] [address] 06/25/2025 2:00 PM FORGING ENGINEER Appointment [facility] Ultrasound [place] [address] [address] Lima Perez NP [address] [place] [address] 06/25/2025 2:45 PM FORGING ENGINEER Appointment [facility] CT Scan [place] [address] [address] Lima Perez NP [address] [place] [address] 07/04/2025 1:40 PM FORGING ENGINEER Office Visit [facility] Orthopedics [place] [address] [facility] [address] [place] [address] Byron Rubi PA-C [address] [place] [address] 07/10/2025 1:00 PM FORGING ENGINEER Office Visit [facility] [address] [place] [address] Berlin Summers PA [address] [place] [address] 08/08/2025 3:30 PM FORGING ENGINEER Office Visit [facility] Douglas Zheng Olivier [address] [place] [address] Nanda Mg NP [address] [place] [address] 08/27/2025 2:20 PM FORGING ENGINEER Telephone Check Up [facility] Neurosurgery [address] [place] [address] [place] [address] Martínez Han MD [address] [place] [address] 11/07/2025 2:40 PM CDT Office Visit [facility] Family Medicine [place] [address] [address] Nir Paulson MD [address] [address] 11/13/2025 2:30 PM CDT Office Visit [facility] Endocrinology [facility] [address] [place] [address] Alfred Tracy MD [address] [place] [address] 01/15/2026 8:45 AM CDT Office Visit [facility] Neurology - [place] [address] [place] [address] Martínez Han MD [address] [place] [address] Yaneth Bass MD [address] [facility] [address] [place] [address] documented as of this encounter Visit Diagnoses Not on filedocumented in this encounter Care Teams Manager University Relationship Specialty Start Date End Date Nir Paulson MD [address] [place] [address] PCP - General Family Practice 10/13/21 documented as of this encounter
--- OUTSIDE RECORDS SUMMARY | 2025-06-24 10:32 | XMS_ITS | Encounter Summary ---
Author Organization [facility] Address [address] [place] [address] Care Team Providers Care City Administrator Name Role Phone Veronica Carvajal MD Primary Care Provider Encounter Details Date Type Department Care Team (Latest Contact Info) Description 08/10/2002 Outpatient Historical HIS [facility] Nir Soto MD [address] [place] [address] UNS ASTHMA WOSTATUS ASTHMATICUS (Primary Dx); MIGRAINE NOS W/O MENTN INTRACTABLE Social History Tobacco Use Types Packs/Day Years Used Date Smoking Tobacco: Never Assessed Comments Unknown Sex and Gender Information Value Date Recorded Sex Assigned at Not on file 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 POULTRY PROCESS WORKER Gender Identity Not on file Sexual Orientation Not on file documented as of this encounter Plan of Treatment Not on file documented as of this encounter Visit Diagnoses Diagnosis Unspecified asthma(493.90)- Primary Unspecified asthma Migraine, unspecified, without mention of intractable migraine without mention of status migrainosus documented in this encounter Care Teams City Administrator Relationship Specialty Start Date End Date Veronica Carvajal MD [address] [phone] PCP - General Family Practice 11/20/20 documented as of this encounter
--- OUTSIDE RECORDS SUMMARY | 2025-06-24 10:32 | XMS_ITS | Encounter Summary ---
Author Organization [facility] Address [address] [place] [address] Care Team Providers Care Plumbing Inspector Name Role Phone Veronica Carvajal MD Primary Care Provider Encounter Details Date Type Department Care Team (Latest Contact Info) Description 04/04/2001 Outpatient Historical HIS [facility] Nir Soto MD [address] [place] [address] Unspecified asthma(493.90) (Primary Dx); Nausea alone; state, incidental Social History Tobacco Use Types Packs/Day Years Used Date Smoking Tobacco: Never Assessed Comments Unknown Sex and Gender Information Value Date Recorded Sex Assigned at Not on file 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 SQL DEVELOPER Gender Identity Not on file Sexual Orientation Not on file documented as of this encounter Plan of Treatment Not on file documented as of this encounter Visit Diagnoses Diagnosis Unspecified asthma(493.90)- Primary Unspecified asthma Nausea alone state, incidental documented in this encounter Care Teams Plumbing Inspector Relationship Specialty Start Date End Date Veronica Carvajal MD [address] [facility] [address] [place] [address] PCP - General Family Practice 11/20/20 documented as of this encounter
--- OUTSIDE RECORDS SUMMARY | 2025-06-24 10:32 | XMS_ITS | Encounter Summary ---
Author Organization [facility] Address [address] [place] [address] Care Team Providers Care Manufacturing Supervisor 2Nd Shift Name Role Phone Veronica Carvajal MD Primary Care Provider Encounter Details Date Type Department Care Team (Latest Contact Info) Description 07/04/1999 Outpatient Historical HIS [facility] Nir Soto MD [address] [place] [phone] Foreign body in unspecified site on external eye (Primary Dx) Social History Tobacco Use Types Packs/Day Years Used Date Smoking Tobacco: Never Assessed Comments Unknown Sex and Gender Information Value Date Recorded Sex Assigned at Not on file 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 FISH NET MAKER Gender Identity Not on file Sexual Orientation Not on file documented as of this encounter Plan of Treatment Not on file documented as of this encounter Visit Diagnoses Diagnosis Foreign body in unspecified site on external eye- Primary documented in this encounter Care Teams Manufacturing Supervisor 2Nd Shift Relationship Specialty Start Date End Date Veronica Carvajal MD [address] [facility] [address] [place] [address] PCP - General Family Practice 11/20/20 documented as of this encounter
--- OUTSIDE RECORDS SUMMARY | 2025-06-24 10:32 | XMS_ITS | Encounter Summary ---
Author Organization [facility] Address [address] [place] [address] Care Team Providers Care Industry Analyst Name Role Phone Veronica Carvajal MD Primary Care Provider [phone] Reason for Referral * Radiology Services (Routine) - Closed Specialty Diagnoses / Procedures Referred By Contac t Referred To Contact Pain Management Diagnoses Other back pain, unspecified chronicity Lumbosacral radiculitis Procedures XR FLUORO LESS THAN 1 HOUR Reymundo Liao MD [facility] Pain Management Procedures [place] [address] [place] [address] Phone: tel: fax: Referral ID Status Reason Start Date Expiration Date Visits Re quested Visits Authorized [id number] Closed 08/19/2020 09/19/2021 1 1 RDOUS WASTE TECHNICIAN Encounter Details Date Type Department Care Team (Late st Contact Info) Description 08/19/2020 Ancillary Orders [facility] Pain Management [place] [address] [place] [address] Reymundo Liao MD NO ADDRESS ON FILE Other back pain, unspecified chronicity; Lumbosacral radiculitis Social History Tobacco Use Types Packs/Day Years Used Date Smoking Tobacco: Former Cigarettes 0.5 12 0 02/02/1984 - 02/02/1996 Smokeless Tobacco: Never Alcohol Use Standard Drinks/Week Comments No 0 (1 standard drink = 0.6 oz pur e alcohol) Comments No Sex and Gender Information Value Date Recorded Sex Assigned at Not on file 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 HAZARDOUS WASTE TECHNICIAN Gender Identity Not on file Sexual Orientation Not on file Occupation Industry Job Start Date Job End Date Not on file Not on file Not on file Not on file Not on file Not on file Not on file Not on file COVID-19 Exposure Response Date Recorded In the last month, have you been in contact with someone who was confirmed or suspected to have Coronavirus / COVID-19? No / Unsure 08/22/2020 1:19 PM HAZARDOUS WASTE TECHNICIAN documented as of this encounter Plan of Treatment Not on file documented as of this encounter Results * XR FLUORO LESS THAN 1 HOUR (08/19/2020 7:35 AM HAZARDOUS WASTE TECHNICIAN) Narrative 08/19/2020 7:51 AM HAZARDOUS WASTE TECHNICIAN Order information only. Exam was auto-finalized. Reymundo Liao MD DIAGNOSTIC IMAGING ORDERAB LES Final Result documented in this encounter Visit Diagnoses Diagnosis Other back pain, unspecified chronicity Lumbosacral radiculitis Thoracic or lumbosacral neuritis or radiculitis, unspecified Other back pain, unspecified chronicity Lumbosacral radiculitis Thoracic or lumbosacral neuritis or radiculitis, unspecified documented in this encounter Care Teams Industry Analyst Relationship Specialty Start Date End Date Veronica Carvajal MD [address] [facility] [address] [place] [address] PCP - General Family Practice 11/20/20 documented as of this encounter
--- OUTSIDE RECORDS SUMMARY | 2025-06-24 10:32 | XMS_ITS | Encounter Summary ---
Author Organization [facility] Address [address] [place] [address] Care Team Providers Care Optoelectronics Engineer Name Role Phone Veronica Carvajal MD Primary Care Provider [phone] Encounter Details Date Type Department Care Team (Latest Contact Info) Description 06/15/2000 Outpatient Historical HIS [facility] Nir Soto MD [address] [place] [address] Allergic rhinitis, cause unspecified (Primary Dx) Social History Tobacco Use Types Packs/Day Years Used Date Smoking Tobacco: Never Assessed Comments Unknown Sex and Gender Information Value Date Recorded Sex Assigned at Not on file 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 HEATING AND VENTILATING DRAFTER Gender Identity Not on file Sexual Orientation Not on file documented as of this encounter Plan of Treatment Not on file documented as of this encounter Visit Diagnoses Diagnosis Allergic rhinitis, cause unspecified- Primary documented in this encounter Care Teams Optoelectronics Engineer Relationship Specialty Start Date End Date Veronica Carvajal MD [address] [facility] [address] [place] [address] PCP - General Family Practice 11/20/20 documented as of this encounter
--- OUTSIDE RECORDS SUMMARY | 2025-06-24 10:32 | XMS_ITS | Encounter Summary ---
Author Organization [facility] Address [address] [place] [address] Care Team Providers Care Coin Rolling Machine Operator Name Role Phone Veronica Carvajal MD Primary Care Provider [phone]- [phone] Reason for Referral * Outpatient Services (Routine) - Closed Specialty Diagnoses / Procedures Referred By Contac t Referred To Contact Diagnoses Pain Procedures XR FLUORO LESS THAN 1 HOUR Salvador Baca MD [address] [address] Phone: tel: fax: Referral ID Status Reason Start Date Expiration Date Visits Re quested Visits Authorized [id number] Closed 03/18/2017 04/18/2018 1 1 Encounter Details Date Type Department Care Team (Late st Contact Info) Description 03/18/2017 Ancillary Orders [facility] Radiology [place] [address] [place] [address] Salvador Baca MD [address] [address] Pain Social History Tobacco Use Types Packs/Day Years Used Date Smoking Tobacco: Former Cigarettes 0.5 12 0 02/02/1984 - 02/02/1996 Smokeless Tobacco: Never Alcohol Use Standard Drinks/Week Comments No 0 (1 standard drink = 0.6 oz pur e alcohol) Comments No Sex and Gender Information Value Date Recorded Sex Assigned at Not on file 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 RN LACTATION Gender Identity Not on file Sexual Orientation [...] * XR FLUORO LESS THAN 1 HOUR (03/18/2017 10:58 AM CDT) Narrative José Marnie F, RT - 03/18/2017 11:34 PM CDT Order information only. Exam was auto-finalized. Salvador Baca MD DIAGNOSTIC IMAGING ORDERAB LES Final Result documented in this encounter Visit Diagnoses Diagnosis Pain Generalized pain Pain Generalized pain documented in this encounter Care Teams Coin Rolling Machine Operator Relationship Specialty Start Date End Date Veronica Carvajal MD [address] [place] [address] PCP - General Family Practice 11/20/20 documented as of this encounter
--- OUTSIDE RECORDS SUMMARY | 2025-06-24 10:32 | XMS_ITS | Encounter Summary ---
Author Organization [facility] Address [address] [place] [address] Care Team Providers Care Wool Shearing Supervisor Name Role Phone Nir Paulson MD Primary Care Provider [phone] [phone] Encounter Details Date Type Department Care Team (Latest Contact Info) Description 05/17/2025 Results Follow-Up [facility] Endocrinology [facility] [address] [place] [address] Alfred Tracy MD [address] [place] [address] TSH, VITAMIN D 25 HYDROXY, HEMOGLOBIN A1C Social History Tobacco Use Types Packs/Day Years [...] on file Legal Sex Female 3:40 AM DENTAL CLAIMS PROCESSOR Gender Identity Not on file Sexual Orientation Not on file documented as of this encounter Miscellaneous Notes * Result Encounter Note - Alfred Tracy MD - 05/17/2025 1:16 PM CDT Vitamin D level is on the low side. Take extra 1000 international units of vitamin D daily for 3 months. Thyroid level came back within acceptable limits. A1c went up but this could be due to prednisone documented in this encounter Plan of Treatment Upcoming Encounters Date Type Department Care Team (Late st Contact Info) Description 06/25/2025 1:00 PM DENTAL CLAIMS PROCESSOR [facility] [place] [address] [address] Oralia Elliott, HOSPITAL PERSONNEL DIRECTOR [address] [facility] [address] [place] [address] 06/25/2025 2:00 PM DENTAL CLAIMS PROCESSOR Appointment [facility] Ultrasound [place] [address] [address] Lima Perez NP [address] [place] [address] 06/25/2025 2:45 PM DENTAL CLAIMS PROCESSOR Appointment [facility] CT Scan [place] [address] [address] Lima Perez NP [address] [place] [address] 07/04/2025 1:40 PM DENTAL CLAIMS PROCESSOR Office Visit [facility] Orthopedics [place] [address] [place] [address] Byron Rubi PA-C [address] [place] [address] 07/10/2025 1:00 PM DENTAL CLAIMS PROCESSOR Office Visit [facility] [address] [place] [address] Berlin Summers PA [address] [place] [address] 08/08/2025 3:30 PM DENTAL CLAIMS PROCESSOR Office Visit [facility] Douglas Zheng Olivier [address] [place] [address] Haritha Nandapat Tello, CONSTAN[place] [address] [place] [address] 08/27/2025 2:20 PM DENTAL CLAIMS PROCESSOR Telephone Check Up [facility] Neurosurgery [address] [place] [address] Martínez Han MD [address] [place] [address] 11/07/2025 2:40 PM CDT Office Visit [facility] Family Medicine [address] [address] Nir Paulson MD [address] [address] 11/13/2025 2:30 PM CDT Office Visit [facility] [address] [place] [address] Alfred Tracy MD [address] [place] [address] 01/15/2026 8:45 AM CDT Office Visit [facility] Neurology - [place] [address] [place] [address] Martínez Han MD [address] [place] [address] Yaneth Bass MD [address] [place] [address] documented as of this encounter Visit Diagnoses Not on filedocumented in this encounter Additional Health Concerns Infection Onset Date Last Indicated Resolved Time R/O Respiratory 06/19/2025 06/20/2025 06/20/2025 6 :41 PM CDT Parainfluenza 06/20/2025 06/20/2025 documented as of this encounter Care Teams Wool Shearing Supervisor Relationship Specialty Start Date End Date Nir Paulson MD [address] [place] [address] PCP - General Family Practice 10/13/21 documented as of this encounter
--- OUTSIDE RECORDS SUMMARY | 2025-06-24 10:32 | XMS_ITS | Patient Health Record ---
Author Organization [facility] Address [address] [place] [address] Drive RAFA NELSON [address] Care Team Providers Care [employer] Studies Professor Name Role Phone Nir Paulson MD Primary Care Provider Unavaila Kira Harkins Unavailable Jalil Womack Unavailable [phone] Nanda Wright Unavailable [phone] Allergies Allergen (clinical drug ingredient) Drug/Non Drug Allergy documented on EMR Reaction Allergy Type Onset Date Status leflunomide Arava Hair loss Drug Allergy Activ e methotrexate Methotrexate Sodium nausea Drug Allergy Active phentermine Phentermine HCl headache, hypertension Drug Allergy Active certolizumab pegol Cimzia Unknown Drug Allergy Active lisinopril Lisinopril Unknown Drug Allergy Activ e Results Component Value Reference Range Flag Notes Basic Metabolic Panel (BMP) [id number] Reviewed date:11/14/2024 08:02:05 AM Interpretation: Performing Lab: Notes/Report: Sodium 138 136-145 MMOL/L Potassium 3.9 3.5-5.1 MMOL/L Chloride 98 98-107 MMOL/L CO2 30.0 20.0-31.0 MMOL/L Glucose Serum 103 71-110 MG/DL Testing p erformed at [facility], [address] [place] [address] Dr. Myesha Glover, RAFA [address]. CLIA ID#: [id number] BUN 17 7-21 MG/DL Creat .77 .51-1.17 MG/DL F-acrlel-m-benzoquinone imine (NAPQI) is a metabolite of acetaminophen, NAPQI concentrations of apparoximately 10 mg/L correlation to toxic levels of acetaminophen demonstrates a greater than or equil to 10% change in results. NAPQI concentrations greater than this may lead to falsely depressed results for patient samples. Use of this assay is not recommended for patients undergoing treatment with phenindione, due to the potential for falsely depressed results. GFR 90.7 NA Calculation pe rformed from GFR calculator provided by the [employer]. Glomerular Filtration rate(GRF) is the best overall index of kidney function. Normal GFR varies according to age,sex, body size, and declines with age. The National [employer] recommends using the CKD-EPI Creatinine Equation(2020) to estimate GFR. Anion Gap 14 5-15 BUN/Creat Ratio 22.1 12.0-20.0 % HI Calcium 9.9 8.7-10.4 MG/DL Osmo Serum,Calculated 288 280-300 MOSM/KG Fluoro Needle For Placement - Spine 96825 Reviewed date:09/20/2024 10:20:34 AM Interpretation: Performing Lab: Notes/Report: Urine Drug Screen (cup read) - [id number] Reviewed date:08/22/2024 11:16:40 AM Interpretation:Positive Performing Lab: Notes/Report: Positive AMP + BZO + OXY + zzzUrine Drug Screen (confir mation by instrument) - [id number] Reviewed date:08/29/2024 12:48:06 PM Interpretation: Performing Lab: Notes/Report: Reason For Referral Reason Comprehensive Pain M anagement Diagnosis 1 Spondylolisthesis at L4-L5 level (M43.16) Referral Organization [facility] [place] Referring Provider First Name Jalil Referring Provider Last Name Vu Referring Provider Speciality Neurosurge kinza Referred Organization [facility] Referred Provider Erin Muro Referred Address [address] [place] [address],[place],[phone], Referred Provider Specialty Pain Medicin e Referral Priority Routine Reason Comprehensive pain m anagement Diagnosis 1 Chronic pain syndrom e (G89.4) Diagnosis 2 Arthrodesis status ( Z98.1) Diagnosis 3 Spondylolisthesis at L4-L5 level (M43.16) Referral Organization [facility] [place] Referring Provider First Name Jalil Referring Provider Last Name Vu Referring Provider Speciality Neurosurge kinza Referred Provider [facility] [place] Referred Provider Specialty Pain Medicin e Referral Priority Routine Medications Medication SIG (Take, Route, Frequency, Duration) Notes Start Date End Date Status Famotidine 40 MG Tablet 1 tablet at bedtime Orally Once a day Active HYDROcodone-Acetaminoph en 10-325 MG Tablet 1 tablet as needed Orally every 6 hrs Active predniSONE 5 MG Tablet 1-2 tabs po daily prn Oral; Duration: 30 Prednisone 5mg Tablet 1-2 tabs po daily prn 05/24/20 13 Not-Phoenixin g Morphine Sulfate 15 MG Tablet Take 1 tab by mouth BID. Oral; Duration: 30 Morphine Sulfate 15mg Tablet Take 1 tab by mouth BID. 05/24/20 13 Not-Phoenixin g Hydrocortisone 20 MG Tablet 1 tablet with food or milk Orally Four times a day Active Acetaminophen 500 MG Capsule 1 capsule as needed Orally every 6 hrs Active Fluconazole 150 MG Tablet 1 tablet Orally Active diazePAM 5 MG Tablet 1/2 tab po q am, and 1 tab po q hs Oral; Duration: 30 Diazepam 5mg Tablet 1/2 tab po q am, and 1 tab po q hs 05/24/20 13 Not-Phoenixin g Cyclobenzaprine HCl 10 MG Tablet 1 tab (s) po q 8 hours prn muscle spasm Oral; Duration: 30 Cyclobenzaprine HCl 10mg Tablet 1 tab (s) po q 8 hours prn muscle spasm 05/24/20 13 Not-Phoenixin g Hizentra 10 GM/50ML Solution as directed Subcutaneous Active medroxyPROGESTERone Acetate 10 MG Tablet 1 tab(s) po qd Oral; Duration: 30 Medroxyprogesterone Acetate 10mg Tablet 1 tab(s) po qd 05/24/20 13 Not-Dipak g hydroCHLOROthiazide 50 MG Tablet Take 1 tablet(s) by mouth daily Oral; Duration: 30 Hydrochlorothiazide (HCTZ) 50mg Tablet Take 1 tablet(s) by mouth daily 05/24/20 13 Not-Takin g Spiriva HandiHaler 18 MCG Capsule 1 capsule by inhaling the contents of the capsule using the HandiHaler device Inhalation Once a day Active Promethazine HCl 25 MG Tablet 1 tablet as needed Orally every 12 hrs Active Flonase Allergy Relief 50 MCG/ACT Suspension 1 spray in each nostril Nasally Once a day Active CeleBREX 200 MG Capsule Take 1 capsule(s) by mouth bid Oral; Duration: 30 Celebrex (Celecoxib) 200mg Capsules Take 1 capsule(s) by mouth bid #60 (Sixty) capsule(s) 05/25/20 13 Not-Takin g Spironolactone 50 MG Tablet 1 tablet Orally Once a day Active amLODIPine Besylate 5 MG Tablet 1 tablet Orally Once a day Active EPINEPHrine 0.3 MG/0.3ML Solution Prefilled Syringe as directed Injection Active Phentermine HCl 30 MG Capsule 1 capsule Orally Once a day Active Multivitamin - Tablet 1 tablet Orally Once a day Active Excedrin Extra Strength 250-250-65 MG Tablet 2 tablets Orally Once a day Active Premarin 0.625 MG/GM Cream as directed Vaginal Active Cetirizine HCl 10 MG Tablet 1 tablet Orally Once a day Active Meloxicam 7.5 MG Tablet 1 tablet Orally Once a day Active Losartan Potassium 100 MG Tablet 1 tablet Orally Once a day Active Dulera 200-5 MCG/ACT Aerosol 2 puffs Inhalation Twice a day Active Metoprolol Tartrate 25 MG Tablet 1 tablet with food Orally Twice a day Active metFORMIN HCl 500 MG Tablet 1 tablet with a meal Orally Once a day Active Azelastine HCl 137 MCG/SPRAY Solution 1 puff in each nostril Nasally Twice a day Active Levalbuterol Tartrate 45 MCG/ACT Aerosol 1 puff as needed Inhalation every 6 hrs Active Hydrocortisone 10 MG Tablet 1 tablet with food or milk Orally every 12 hrs Active Social History Tobacco Use: Social History Observation Description Date Details (start date - stop date) Never Smoker NA - NA Social History Drugs/Alcohol: Social Info Question Answer Notes Alcohol Screen (Audit-C) Did you have a drink containing alcohol in the past year? No Points 0 Interpretation Negative Drugs Have you used drugs other than those for medical reasons in the past 12 months? 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 Problems Problem Type SNOMED Code ICD Code Onset Dates Problem Status W/U Status Risk Notes Problem Chronic pain syndrome (263354469) Chronic pain syndrome (G89.4) Active confirmed Problem Lumbosacral radiculopathy (6526711) Radiculopathy, lumbosacral region (M54.17) Active confirmed Problem Neurogenic claudication (424762603) Spinal stenosis, lumbar region with neurogenic claudication (M48.062) Active confirmed Problem Lumbar radiculopathy (844616787) Lumbar radiculopathy (M54.16) Active confirmed Problem Pain in right leg (074926280) Right leg pain (M79.604) Active confirmed Problem Pain in left leg (524504839) Left leg pain (M79.605) Active confirmed Problem Degeneration of lumbar intervertebral disc (72544163) Lumbar degenerative disc disease (M51.36) Active confirmed Problem Degeneration of lumbar intervertebral disc (09815128) Degenerative disc disease, lumbar (M51.36) Active confirmed Problem Chronic pain (37011984) Chronic pain (G89.29) Active confirmed Problem Acquired spondylolisthesis (069792286) Spondylolisthesis at L4-L5 level (M43.16) Active confirmed Problem Arthropathy of lumbar facet joint (disorder) (154170919) Facet arthropathy, lumbar (M47.816) Active confirmed Problem Rheumatoid arthritis (61151841) Rheumatoid arthritis (714.0) 013 Active confirmed [facility] 5911- Vital Signs Height-cm 170.18 cm 05/01/2025 Weight-kg 91.63 kg 05/01/2025 Height 67 in 05/01/2025 Weight 202 lbs 05/01/2025 BMI 31.63 kg/m2 05/01/2025 Procedures Procedure Date Ordered Date Performed Result Body Sit e Epidural, Lumbar/Sacral (Cau judy), w/ imaging guidance - [id number] 09/20/2024 09/20/2024 N/A Conscious Sedation, Professi onal Only - 89564 09/20/2024 09/20/2024 N/A Encounters Encounter Location Date Provider Diagnosis [facility] [place] [address] [place] [address] 05/01/2025 Kira [facility] e Chronic pain syndrome G89.4 ; Radiculopathy, lumbosacral region M54.17 ; Spinal stenosis, lumbar region with neurogenic claudication M48.062 ; Strain of muscle, fascia and tendon of the posterior muscle group at thigh level, unspecified thigh, sequela S76.319S ; Chronic prescription opiate use Z79.891 and Hamstring tear S76.319A [facility] [place] [address] [place] [phone] 02/08/2025 Nanda Wright Chronic pain syndrome G89.4 ; Radiculopathy, lumbosacral region M54.17 ; Spinal stenosis, lumbar region with neurogenic claudication M48.062 and Chronic prescription opiate use Z79.891 [facility] [place] [address] [place] [address] 12/19/2024 Kira [facility] e Chronic pain syndrome G89.4 ; Radiculopathy, lumbosacral region M54.17 ; Spinal stenosis, lumbar region with neurogenic claudication M48.062 ; Hamstring tear S76.319A and Chronic prescription opiate use Z79.891 [facility] [address] [address] 11/28/2024 Kira [facility] Chronic pain syndrome G89.4 ; Radiculopathy, lumbosacral region M54.17 ; Spinal stenosis, lumbar region with neurogenic claudication M48.062 and Chronic prescription opiate use Z79.891 [facility] [address] [address] 11/08/2024 Kira [facility]yutova[facility] Chronic pain syndrome G89.4 ; Radiculopathy, lumbosacral region M54.17 ; Spinal stenosis, lumbar region with neurogenic claudication M48.062 and Chronic prescription opiate use Z79.891 [facility] [place] [address] [place] [address] 10/10/2024 Kira [facility]uksyutova[facility] e Chronic pain syndrome G89.4 ; Radiculopathy, lumbosacral region M54.17 ; Spinal stenosis, lumbar region with neurogenic claudication M48.062 and Chronic prescription opiate use Z79.891 [facility] [address] [facility] [place] [address] 09/20/2024 Kira [facility]ova[facility] Spinal stenosis, lumbar region with neurogenic claudication M48.062 [facility] [place] [address] [place] [place] [address] 08/22/2024 Kira [facility] Chronic pain syndrome G89.4 ; Radiculopathy, lumbosacral region M54.17 ; Spinal stenosis, lumbar region with neurogenic claudication M48.062 and Chronic prescription opiate use Z79.891 [facility] [address] [facility] [place] [address] 12/28/2024 Kira [facility] [address] [facility] [place] [address] 11/10/2024 Kira [facility] [address] [facility] [place] [address] 11/01/2024 Kira [facility]ova[facility] e [facility] [address] [facility] [place] [address] 09/21/2024 Kira [facility]uks[facility]utova[facility] e [facility] [address] [facility] [place] [address] 09/21/2024 Kira [facility]ova[facility] [place] [address] [place] [address] 07/06/2024 Jalil Womack Assessments Encounter Date Diagnosis (ICD Code) Assessment Notes Treatment Notes Treatment Clinical Notes Section Notes 05/01/2025 Chronic pain syndrome (ICD-10 - G89.4) She is a very pleasant patient with a history of immunodeficiency, hypogammaglobulinemia, rheumatoid arthritis, hypertension, EMG confirmed left sided L5 radiculopathy and right sided S1 radiculopathy. She has laminectomy fusion from L4 to S1 from [address] Womack. Back in August in 2024, she had a caudal DELFINO with good benefit. Unfortunately, she developed pneumonia and was bed bound for about 1 month afterward. Overall, she was deconditioned and ended up obtaining left hamstring rupture complicated by hematoma and rhabdomyolysis. This was back in October, and she was treated by me with over the counter PO hydration and close BMP monitoring. She recovered from her rhabdomyolysis with no significant sequelae. She has been working with her physician in [place] who manages her hypogammaglobulinemia, and they have slowly been taking her off her IgG infusions. She has now developed multiple infections over the last few months, having a new infection every 3 - 4 weeks requiring antibiotics. I discussed with her that I can offer her a caudal DELFINO, but I was concerned with the steroid hypogammaglobulinemia anemia and adrenal insufficiency regarding infection She continues her home exercise program and her opioids are managed by Dr. Baldwin out of [place]. I encouraged her to discuss with her prior physician options to take care of her general immunocompromised state. She is also seeing a neurosurgeon and had an updated MRI L spine that I reviewed with her utilizing a 3D model. My recommendation to hold off on the caudal DELFINO still holds. I will see her back in 8 weeks after she has further workup and evaluation from her doctor in [place]. 05/01/2025 Radiculopathy, lumbosacral region (ICD-10 - M54.17) 08/22/2024 Chronic pain syndrome (ICD-10 - G89.4) Ms. Smith is a very pleasant female with history and physical exam of lumbar post-laminectomy syndrome and neurogenic claudication. She has a syrinx at L4 and L5, which makes me hesitant to do epidural steroid injections at that location. Thus, we will perform a caudal epidural steroid injection on her. Can consider trans S1 in the future as well versus scs trial . Her opiates are prescribed by a physician in [place], we discussed that I will not be taking over these, she is just seeing me for interventional procedures. 08/22/2024 Radiculopathy, lumbosacral region (ICD-10 - M54.17) 09/20/2024 Spinal stenosis, lumbar region with neurogenic claudication (ICD-10 - M48.062) 12/19/2024 Chronic pain syndrome (ICD-10 - G89.4) Ms. Smith is a pleasant patient who had an acute hamstring tear several weeks ago. She's still recovering from this on her left side. She wanted to come in today because she's having some paresthesias in the area of her left ischial tuberosity. From our discussion today, I suspect she's having some strainage of the smaller nerve fibers within the hamstring tenet itself. I provided her an aquatic therapy regimen for her to be able to kathe at the therapy pool that her son is the web development manager of. We'll see her back in one months time. I also counseled her to trial Lidocaine patches OTC as her insurance does not cover Lidocaine 5% patches for her diagnosis. 12/19/2024 Radiculopathy, lumbosacral region (ICD-10 - M54.17) 11/28/2024 Chronic pain syndrome (ICD-10 - G89.4) Ms. Smith is a pleasant patient who had an acute hamstring tear but she's doing much better with the compression that I recommended for her. She'll start gentle range of motion and hamstring exercises. I want to hold off on the caudal epidural steroid injection at this time. I'll see her back in 2 months. At that point, we can get her schedueld for episodic caudal DELFINO. 11/08/2024 Chronic pain syndrome (ICD-10 - G89.4) Ms. Smith is a pleasant patient with history, physical exam, and imaging consistent with acute left hamstring rupture complicated by hematoma. She reports she's not interested in surgery, but I also encouraged her to visit with an orthopedic surgeon regarding options. She did present me with her blood work. She has had a significant increase in her creatine and a decrease in her GFR over the course of 5 days. From 11/02 I have her BUN is 19 and creatine is 0.84 and from 11/07 her BUN is 20 and creatine is 1.56. She is not drinking appropriate amounts of water. I encouraged her to continue hydrating and I will repeat the BMP on Wednesday to make sure she's not going into rhabdomyolosis. I counseled her regarding signs and symptoms of this and gave her ER precautions. I also encouraged range of motion and compression of her hamstring and calf in a graduated manner and tort in order to help the pooling of blood to be returned back to the core. All questions addressed, and she has a follow up already scheduled with me in [place]. I'll call her with the lab results. 11/08/2024 Radiculopathy, lumbosacral region (ICD-10 - M54.17) 10/10/2024 Chronic pain syndrome (ICD-10 - G89.4) Ms. Smith is a pleasant patient who had a caudal epidural steroid injection with me on 09/20/2024. She reports 50-60% pain relief on going and 60-80% functional improvement. She did unfortunately get sick shortly thereafter with the flu. I'll see her back in 2 months to reevaluate. At that time, we can repeat the caudal epidural steroid injection versus doing a trans S1 TFESI. 10/10/2024 Radiculopathy, lumbosacral region (ICD-10 - M54.17) 02/08/2025 Chronic pain syndrome (ICD-10 - G89.4) I had a nice discussion with the patient today regarding her chronic pain complaints. She states she is doing much better from her hamstring tear. She still has some occasional pain and tingling but feels it is much improved and states she continues to improve daily. She feels she is ready to proceed with another caudal DELFINO. She continues with lower back pain as well as radicular symptoms. She has had 1 of these in the past and apparently ended up with influenza A and then with sepsis pretty soon after. Therefore she feels she is not really sure how much it helped as she was so sick for a while during that time. I did review her most recent MRI with her. She denies any other changes. She continues with physical therapy exercises in a pool which she feels is helping some. She will return to clinic after procedure to monitor for treatment effectiveness and compliance The procedure and risks were discussed with the patient including but not limited to infection, bleeding, neurological complications, side effects from medications, no change in pain, worsening of pain, or even . We also discussed conservative options, surgical options, and medical management with patient as well. The patient indicates understanding and wishes to proceed with the recommended treatment approach. The patient was given written information about the procedure and all questions were answered. 02/08/2025 Radiculopathy, lumbosacral region (ICD-10 - M54.17) 10/10/2024 Spinal stenosis, lumbar region with neurogenic claudication (ICD-10 - M48.062) 11/08/2024 Spinal stenosis, lumbar region with neurogenic claudication (ICD-10 - M48.062) 11/28/2024 Radiculopathy, lumbosacral region (ICD-10 - M54.17) 12/19/2024 Spinal stenosis, lumbar region with neurogenic claudication (ICD-10 - M48.062) 05/01/2025 Spinal stenosis, lumbar region with neurogenic claudication (ICD-10 - M48.062) 08/22/2024 Spinal stenosis, lumbar region with neurogenic claudication (ICD-10 - M48.062) Patient has imaging, history, and physical exam consistent with pain generated from neurogenic claudication of the lumbosacral region. Patient has tried conservative measures including medication with limited benefit including medications to include gabapentin if they could tolerate it and physical therapy including home exercise regimen under a physician's guidance for at least 6 weeks. They have had a decrease in their quality of life as a result of this pain. This pain is impairing their ability to perform ADLs and care for their family. This pain is also interfering with their ability to work. They now have had to increase their medication use. It is medically necessary to proceed with this procedure, risks and expectations of the procedure where discussed with the patient and they agreed to proceed. The options for treatment were explained in detail, this included PT, medications, injections, lifestyle modifications and exercise. Proceed with caudal DELFINO w/ sedation The aforementioned procedure is medically necessary to be performed with minimal sedation. This sedation is necessary to ensure patient comfort and cooperation, while also minimizing anxiety and discomfort. 05/01/2025 Strain of muscle, fascia and tendon of the posterior muscle group at thigh level, unspecified thigh, sequela (ICD-10 - S76.319S) 08/22/2024 Chronic prescription opiate use (ICD-10 - Z79.891) 12/19/2024 Hamstring tear (ICD-10 - S76.319A) 11/28/2024 Spinal stenosis, lumbar region with neurogenic claudication (ICD-10 - M48.062) 11/08/2024 Chronic prescription opiate use (ICD-10 - Z79.891) 10/10/2024 Chronic prescription opiate use (ICD-10 - Z79.891) 02/08/2025 Spinal stenosis, lumbar region with neurogenic claudication (ICD-10 - M48.062) 02/08/2025 Chronic prescription opiate use (ICD-10 - Z79.891) 11/28/2024 Chronic prescription opiate use (ICD-10 - Z79.891) 05/01/2025 Chronic prescription opiate use (ICD-10 - Z79.891) 12/19/2024 Chronic prescription opiate use (ICD-10 - Z79.891) 05/01/2025 Hamstring tear (ICD-10 - S76.319A) 08/22/2024 Other RECOMMEND THERAPEUTIC Caudal EPIDURAL STEROID INJECTION The patient reports overall 50% improvement in function and decrease in pain for greater than one month from previous diagnostic DELFINO. The patient also reports improvement in tolerance to activities which generally cause pain. Based on the results of previous diagnostic DELFINO, a therapeutic DELFINO is recommended. Expectation from a successful therapeutic epidural steroid injection is at least 50-70% relief of pain from baseline and evidence of improved function for at least six to eight weeks after delivery. The goal of epidural steroid injections is to reduce pain and inflammation, restoring range of motion and, thereby, facilitating progress in more active treatment programs, and avoiding surgery. The procedure and risks were discussed with the patient including but not limited to infection, bleeding, neurological complications, side effects from medications, no change in pain, worsening of pain, or even . We also discussed conservative options, surgical options, and medical management with patient as well. The patient indicates understanding and wishes to proceed with the recommended treatment approach. The patient was given written information about the procedure and all questions were answered. Total time spent caring for the patient today was greater than 45 minutes. This includes time spent before the visit reviewing the chart, time spent during the visit, and time spent after the visit on documentation Dolores Lyons am scribing for Dr. Frye. Dr. Uday Lyons, personally performed the services described in this documentatio n, as scribed by Dolores Peña, and it is both accurate and complete. 10/10/2024 Other Dolores Lyons am scribing for Dr. Frye. Dr. Uday Lyons, personally performed the services described in this documentation, as scribed by Dolores Peña, and it is both accurate and complete. 11/08/2024 Other Dolores Lyons am scribing for Dr. Frye. I, Dr. Frye, personally performed the services described in this documentation, as scribed by Dolores Peña, and it is both accurate and complete. 11/28/2024 Other Dolores Lyons, am scribing for Dr. Frye. I, Dr. Frye, personally performed the services described in this documentation, as scribed by Dolores Peña, and it is both accurate and complete. 12/19/2024 Other lidocaine 4 % patches called in to patient's POC #15 for hamstring tear IDolores am scribing for Dr. Frye. I, Dr. Frye, personally performed the services described in this documentation, as scribed by Dolores Peña, and it is both accurate and complete. 05/01/2025 Other Johnathan Lyons am scribing for Dr. Kira Muro. Kira Lyons, personally performed the services described in this documentation, as scribed by Johnathan Kay, and it is both accurate and complete. Plan Of Treatment Pending Test Test Name Order Date Prothrombin Time 08398 07/29/2022 Prothrombin Time 20585 08/03/2022 Prothrombin Time 76550 08/31/2022 ABORh 74432, 41314 08/03/2022 ABORh 84399, 02882 08/31/2022 ABORh 66226, 33265 07/29/2022 Antibody Screen 25838 07/29/2022 Antibody Screen 31227 08/31/2022 Antibody Screen 01468 08/03/2022 Basic Metabolic Panel (BMP) 65456 2021 Basic Metabolic Panel (BMP) 48673 2022 Basic Metabolic Panel (BMP) 98070 2021 Basic Metabolic Panel (BMP) 79488 2022 Basic Metabolic Panel (BMP) 49211 2022 CBC w\ Auto Diff 82462 09/08/2022 CBC w\ Auto Diff 00772 07/29/2022 CBC w\ Auto Diff 04109 01/26/2023 CBC w\ Auto Diff 17558 08/31/2022 CBC w\ Auto Diff 77318 08/03/2022 Comprehensive Metabolic Panel (CMP) 8005 3 01/26/2023 Partial Thromboplastin Time 87553 2021 Partial Thromboplastin Time 22134 2021 Partial Thromboplastin Time 12232 2022 Sedimentation Rate 02750 01/26/2023 CBC Reflex Man Diff 47234, 72928 023 CRP 37396 01/26/2023 Chest PA/Lat-66734 07/29/2022 Chest PA/Lat-73939 08/03/2022 CT L-Spine w/o Contrast incl Recon-17003 02/23/2024 CT L-Spine w/o Contrast incl Recon-55550 01/25/2024 Lumbosacral Spine AP/Lat-65336 3 Lumbosacral Spine AP/Lat-42458 3 Lumbosacral Spine AP/Lat-96313 3 Lumbosacral Spine AP/Lat-67437 3 Lumbosacral Spine AP/Lat-75794 3 Lumbosacral Spine AP/Lat-40468 3 Lumbosacral Spine AP/Lat-07203 3 Lumbosacral Spine AP/Lat-45503 3 MRI Lumbar Spine w/o Cont-26538 01/27/20 23 MRI Lumbar Spine w/o Cont-73489 06/23/20 22 MRI Lumbar Spine w/o Cont-81418 07/15/20 22 Electrocardiogram 12 Lead Tracing-10936 07/29/2022 Electrocardiogram 12 Lead Tracing-64108 08/03/2022 Glucometer WBG--66112 09/07/2022 WBC Auto Diff--77840 09/07/2022 BB ABORH-63488,60861 08/31/2022 zzzFluoro >1h4 09/07/2022 Schedule Confirmation 02/23/2024 Schedule Confirmation 02/23/2024 Future Test Test Name Order Date Epidural, Lumbar/Sacral (Caudal), w/ oswald ging guidance - 57548 04/03/2025 Next Appt Details Provider Name:Kira Lyons Esequiel Weinstein, 07/03/2025 10:00:00 AM, [address] [place], [address], Insurance Providers Payer Name Payer Address Payer Phone Subscriber Number Group Number Insured Name Patient Relationship to Insured Coverage Start Date Coverage End Date [place] Medicaid [address] [place] [phone] [phone] [id number] Cathi Smith Self - patient is the insured Medical (General) History Medical History History ICD Code Rheumatoid Arthritis Migrain e Headaches CURRENT MEDICAL PROVIDERS:Undercutter: [employer] PREVENTIVE HEALTH MAINTENANCE INFLUENZA VACCINE: was last done 2010 PNEUMOCOCCAL VACCINE: was last done 2010 TETANUS VACCINE: cannot recall chicken pox scarlet fever pneumonia arthritis bladder infections migraine headaches diabetes hernia back trouble high blood pressure asthma fibromyalgia IBS RA Surgical History Surgery Date(Month/Year) section: X 1; hernia repair colon resection ACL repair hysterectomy Lumbar fusion 09/2022 Hospitalization History Reason Date(Month/Year) see surgical hx
--- NOTE | 2025-06-24 10:38 | XRR_ITS ---
PROCEDURE INFORMATION: Exam: XR Chest Exam date and time: 06/24/2025 10:46 AM Age: 55 years old Clinical indication: Shortness of breath; Additional info: SOB TECHNIQUE: Imaging protocol: Radiologic exam of the chest. Views: 1 view. COMPARISON: CR XR chest 1V portable [id number] 09/23/2024 4:32 PM FINDINGS: Lungs: Mild left basilar opacity. Pleural spaces: Small dependent left pleural effusion. Mild left basilar opacity. Heart/Mediastinum: Unremarkable. No cardiomegaly. Bones/joints: New fracture deformities of the lateral aspects of multiple right ribs. XR/XR chest 1V portable [id number] IMPRESSION: 1. Mild left basilar opacity with small left effusion. Pneumonia is not excluded. 2. Interval development of multiple apparent fracture deformities of the upper right chest.
--- NOTE | 2025-06-24 10:40 | ECG_ITS ---
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 Measurements Intervals [place] Rate: 88 P: 58 [place]: 168 QRS: -8 QRSD: 78 T: 34 QT: 329 QTc: 399 Interpretive Statements SINUS RHYTHM POSSIBLE LEFT ATRIAL ENLARGEMENT [-0.1mV P-WAVE IN V1/V2] INFERIOR MYOCARDIAL INFARCTION , PROBABLY OLD [40+ ms Q WAVE AND/OR ST/T ABNORMALITY IN II/aVF] Compared to ECG 05/31/2024 17:58:13 Myocardial infarct finding now present Electronically Signed On 06-24-2025 14:09:18 CEMENT CUTTER by Nicholas Liu M.D. [email or web address]
--- NOTE | 2025-06-24 10:42 | W.ED.SOB ---
HPI - SOB/Dyspnea General: Chief Complaint: Shortness of Breath/Dyspnea Stated Complaint: Sob and cant walk Time Seen by Provider: 06/24/25 10:28 Source: patient Mode of arrival: ambulatory Limitations: no limitations History of Present Illness: HPI Narrative: 55-year-old female history of adrenal insufficiency states she has been having shortness of breath cough is going on for 3 to 4 days. She states that she has been on Augmentin and doxycycline and has had worsening symptoms. She has had subjective fevers. She has had some sharp chest pains as well. She denies any vomiting or diarrhea. Related Data Home Medications ?Medication ?Instructions ?Recorded ?Confirmed conjugated estrogens 0.625 mg/gram 0.625 mg vaginal .COMPLEX 10/03/19 05/02/25 vaginal cream (Premarin) losartan 100 mg tablet 100 mg PO DAILY 10/03/19 05/02/25 promethazine 25 mg tablet 25 mg PO Q6H PRN Nausea 10/03/19 05/02/25 fluticasone propionate 50 1 spray intranasal DAILY 11/08/19 05/02/25 mcg/actuation nasal spray,suspension levalbuterol tartrate 45 2 inh inhalation Q4H PRN Shortness 11/08/19 05/02/25 mcg/actuation aerosol inhaler Of Breath (Xopenex HFA) mometasone-formoterol HFA 100 2 puff inhalation BID 11/08/19 05/02/25 mcg-5 mcg/actuation aerosol inhaler (Dulera) azelastine 137 mcg (0.1 %) nasal 1 spray intranasal BID 11/29/19 05/02/25 spray ascorbic acid (vitamin C) 500 mg 500 mg PO DAILY 01/25/20 05/02/25 capsule vitamin B complex 1 cap PO DAILY 01/25/20 05/02/25 jaden root 1 tab PO DAILY 04/24/20 05/02/25 cholecalciferol (vitamin D3) 50 50 mcg PO DAILY 06/17/20 05/02/25 mcg (2,000 unit) capsule hydrocortisone 10 mg tablet 20 mg PO BID 01/07/21 05/02/25 immune globulin,gamma(IgG)klhw 10 10 g SUBCUT Q7D 04/15/21 05/02/25 gram/50 mL(20%)subcut solution levocetirizine 5 mg tablet (Xyzal) 5 mg PO DAILY 06/17/21 05/02/25 metformin 500 mg tablet 500 mg PO BID 06/17/21 05/02/25 amlodipine 5 mg tablet 5 mg PO DAILY 02/05/22 05/02/25 methocarbamol 750 mg tablet ea PO 06/14/23 05/02/25 acetaminophen 500 mg capsule 500 mg PO BID 09/21/23 05/02/25 celecoxib 100 mg capsule (Celebrex) 100 mg PO BID 08/08/24 05/02/25 Previous Rx's ?Medication ?Instructions ?Recorded spironolactone 50 mg tablet 50 mg PO BID #60 tabs 07/26/20 etanercept 50 mg/mL (1 mL) 50 mg SUBCUT .Q7days #4 mL 12/11/24 subcutaneous syringe (Enbrel) prednisone 5 mg tablet 7.5 mg (1.5 x 5 mg) PO DAILY #135 12/11/24 tabs tramadol 50 mg tablet 50 mg PO TID PRN pain #60 tabs 04/20/25 mupirocin 2 % topical ointment 1 applic topical TID #15 grams 05/02/25 famotidine 40 mg tablet 40 mg PO DAILY #90 tabs 06/13/25 Allergies Allergy/AdvReac Type Severity Reaction Status Date / Time gabapentin Allergy unknown Verified 05/02/25 11:28 albuterol AdvReac Unknown RASH, Verified 05/02/25 11:28 BLISTERS TO FACE AND HTN certolizumab pegol (From AdvReac Unknown SWELLING Verified 05/02/25 11:28 Cimzia) hydralazine AdvReac Unknown HEADACHE/HT Verified 05/02/25 11:28 N/FLUSHING lisinopril AdvReac Unknown Unknown Verified 05/02/25 11:28 Review of Systems Resp: Reports: dyspnea PFSH ED PFSH: Medical History Hypogammaglobulinemia Seronegative rheumatoid arthritis of both hands Hx of diverticulitis of colon Recurrent infections Cholecystectomy planned Anxiety state Immunization counseling Rheumatoid arthritis with negative rheumatoid factor High risk medication use Immunosuppression Seronegative rheumatoid arthritis Opioid contract exists Encounter for long-term use of opiate analgesic Back pain, lumbosacral Cystocele Rectocele Surgical History S/P hernia repair Laparoscopic Incisional Hernia Repair 02/05/22 H/O left knee surgery ACL right H/O dilation and curettage H/O section H/O hernia repair H/O arthroscopic knee surgery History of colon resection Family History Other CAD (coronary artery disease) Diabetes Hypertension Lupus (systemic lupus erythematosus) Psychiatric illness Rheumatoid arthritis Denies family history of Anesthesia complication Bleeding disorder Social History Smoking and tobacco/nicotine status: former use of tobacco/nicotine Second hand smoke exposure: No Alcohol intake: former Substance/Drug Use: never Physical Exam Const: COMMON NORMALS: no acute distress, patient oriented x3 and healthy appearing HENMT: COMMON NORMALS: normocephalic and atraumatic HEAD & SCALP: normocephalic and atraumatic Neck/C-Spine: COMMON NORMALS: full ROM and supple Chest: COMMONS NORMALS: normal inspection of the chest and normal palpation of entire chest wall Resp: COMMON NORMALS: No retractions and No use of accessory muscles AUSCULTATION: rales Cardio: COMMON NORMALS: regular rate, regular rhythm and No murmurs present (Cardio) RATE: regular rate RHYTHM: regular rhythm GI: COMMON NORMALS: Normal to inspection, nondistended, normoactive bowel sounds present, Soft to palpation, non-tender and no masses PALPATION: Yes Soft to palpation Extremity: COMMON NORMALS: normal to inspection and full ROM Neuro: COMMON NORMALS: patient oriented x3, moves all extremities and no focal motor deficits Psych: COMMON NORMALS: mental status grossly normal, Normal thought process present and cooperative THOUGHT PROCESS: Normal thought process present Skin: COMMON NORMALS: no rashes or lesions noted and no wounds GENERAL SKIN EXAM: no rashes or lesions noted Course Vital Signs: Vital signs: Vital Signs Temperature 98.2 F 06/24/25 10:31 Pulse Rate 82 06/24/25 11:13 Respiratory Rate 18 06/24/25 11:08 Blood Pressure 133/69 06/24/25 10:31 Pulse Oximetry 94 06/24/25 11:08 Oxygen Delivery Me thod Room Air 06/24/25 11:08 MDM - SOB/Dyspnea Medical Decision Making Patient presents here with shortness of breath. Differential included pulmonary emboli, pneumothorax. Patient has no signs of pulm emboli here x-ray shows no signs of a pneumothorax. Patient does have a small left pleural effusion with likely left-sided pneumonia. Does have an elevated white count as well. Patient is not septic she has been on outpatient antibiotics does get very dyspneic here with exertion we will start her on azithromycin and Rocephin. I did go over her chest x-ray and labs with her. EKG here showed normal sinus rhythm heart rate [address] elevation QRS 86 QTc 380. I spoke to physician Dr. Mathews and will admit for observation for pneumonia. Medical Records I reviewed the patient's medical records. Lab Data I reviewed the patient's lab results. 06/24/25 10:47 06/24/25 10:47 Labs/Radiology: Radiology Impressions Chest X-Ray 06/24/25 10:38 IMPRESSION: 1. Mild left basilar opacity with small left effusion. Pneumonia is not excluded. 2. Interval development of multiple apparent fracture deformities of the upper right chest. Laboratory Results WBC 13.25 10^3/uL (3.29-11.43) H 06/24/25 10:47 RBC 4.60 10^6/uL (3.85-5.65) 06/24/25 10:47 Hgb 13.50 g/dL (11.27-16.99) 06/24/25 10:47 Hct 42.8 % (36-47) 06/24/25 10:47 MCV 93.0 fl (85-98) 06/24/25 10:47 MCH 29.3 pg (27-33) 06/24/25 10:47 MCHC 31.5 g/dL (30-55) 06/24/25 10:47 RDW 14.0 % (12.1-15.1) 06/24/25 10:47 Plt Count 449 10^3/cmm (157-399) H 06/24/25 10:47 MPV 8.3 fL (7.4-10.4) 06/24/25 10:47 Neut % (Auto) 84.9 % 06/24/25 10:47 Lymph % (Auto) 8.7 % 06/24/25 10:47 Hunt % (Auto) 4.2 % 06/24/25 10:47 Eos % (Auto) 0.8 % 06/24/25 10:47 Baso % (Auto) 0.6 % 06/24/25 10:47 Neut # (Auto) 11.26 10^3/uL (1.8-7.7) H 06/24/25 10:47 Lymph # (Auto) 1.2 10^3/uL (0.8-4.8) 06/24/25 10:47 Hunt # (Auto) 0.6 10^3/uL (0.2-0.9) 06/24/25 10:47 Eos # (Auto) 0.1 10^3/uL (0.0-0.8) 06/24/25 10:47 Baso # (Auto) 0.1 10^3/uL (0.0-0.1) 06/24/25 10:47 Nucleated RBC % (auto) 0 % 06/24/25 10:47 Nucleated RBCs # 0.0 /100WBC 06/24/25 10:47 Sodium 135 mmol/L (136-145) L 06/24/25 10:47 Potassium 4.0 mmol/L (3.5-5.1) 06/24/25 10:47 Chloride 93 mmol/L (98-107) L 06/24/25 10:47 Carbon Dioxide 29 mmol/L (22-29) 06/24/25 10:47 Anion Gap 17.0 (5-19) 06/24/25 10:47 BUN 11 mg/dL (6-20) 06/24/25 10:47 Creatinine 0.8 mg/dL (0.5-0.9) 06/24/25 10:47 GFR Calculation 73.9 mL/min (90-130) L 06/24/25 10:47 Glucose 218 mg/dL (65-115) H 06/24/25 10:47 Calculated Osmolality 286 mOsm/kg (285-295) 06/24/25 10:47 Calcium 9.6 mg/dL (8.5-10.5) 06/24/25 10:47 Total Bilirubin 0.3 mg/dL (0.15-1.2) 06/24/25 10:47 AST 24 U/L (0-32) 06/24/25 10:47 ALT 36 U/L (0-33) H 06/24/25 10:47 Alkaline Phosphatase 174 U/L (35-105) H 06/24/25 10:47 NT-Pro-B Natriuret Pep 127 pg/mL (0-125) H 06/24/25 10:47 Total Protein 7.2 g/dL (6.6-8.7) 06/24/25 10:47 Albumin 4.2 g/dL (3.5-5.2) 06/24/25 10:47 Globulin 3.0 g/dL (1.3-4.6) 06/24/25 10:47 Influenza A (PCR) Negative (Negative) 06/24/25 11:08 Influenza Type B (PCR) Negative (Negative) 06/24/25 11:08 RSV (PCR) Negative (Negative) 06/24/25 11:08 SARS-CoV-2 (PCR) Negative (Negative) 06/24/25 11:08 All radiology interpretation(s) finalized by discharge EKG Data EKG 1: I personally reviewed and interpreted this EKG as follows: EKG Interpretation Date: 06/24/25 EKG interpretation time: 10:34 Interpretation: nsr hr [address] elevation qrs 86 qtc 380 Discharge Plan Discharge Patient Disposition: Admitted As Inpatient Clinical Impression: Community acquired pneumonia Condition: Stable Coding Level of Care Code ED Community Director for Josh Hogan
[2025-06-24 10:54] LABS: Hematocrit 42.8 % (36-47); Hemoglobin 13.50 g/dL (11.27-16.99); Mean Corpuscular HGB Conc 31.5 g/dL (30-55); Mean Corpuscular Hemoglobin 29.3 pg (27-33); Mean Corpuscular Volume 93.0 fl (85-98); Nucleated Red Blood Cells % 0 %; Platelet Count 449 10^3/cmm (157-399); Red Blood Count 4.60 10^6/uL (3.85-5.65); White Blood Count 13.25 10^3/uL (3.29-11.43)
[2025-06-24 11:26] LABS: Alanine Aminotransferase 36 U/L (0-33); Albumin Level 4.2 g/dL (3.5-5.2); Alkaline Phosphatase 174 U/L (35-105); Anion Gap 17.0 (5-19); Aspartate Amino Transferase 24 U/L (0-32); Blood Urea Nitrogen 11 mg/dL (6-20); Calcium 9.6 mg/dL (8.5-10.5); Carbon Dioxide 29 mmol/L (22-29); Chloride 93 mmol/L (98-107); Globulin 3.0 g/dL (1.3-4.6); Glucose 218 mg/dL (65-115); NT Pro B Type Natriuretic Pept 127 pg/mL (0-125); Osmolality Calculated 286 mOsm/kg (285-295); Potassium 4.0 mmol/L (3.5-5.1); Sodium 135 mmol/L (136-145); Total Protein 7.2 g/dL (6.6-8.7)
[2025-06-24 11:53] LABS: Respiratory Syncytial Virus Ce NEGATIVE (Negative); SARS-CoV-2 PCR NEGATIVE (Negative)
--- NOTE | 2025-06-24 12:17 | USR_ITS ---
PROCEDURE INFORMATION: Exam: US Duplex Lower Extremity Veins, Bilateral Exam date and time: 06/24/2025 1:14 PM Age: 55 years old Clinical indication: Swelling (edema) of limb; Lower extremity, bilateral TECHNIQUE: Imaging protocol: Real-time duplex ultrasound of the bilateral extremities with 2-D burgos scale, color Doppler flow and spectral waveform analysis including responses to compression and other maneuvers (when performed) with image documentation. Complete exam focused on the lower extremity veins. COMPARISON: CT abdomen pelvis w con* [id number] 02/05/2022 5:25 AM FINDINGS: Right deep veins: Unremarkable. The common femoral, femoral, proximal profunda femoral and popliteal veins are patent without thrombus. Normal Doppler waveforms. Normal compressibility and/or augmentation response. Left deep veins: Unremarkable. The common femoral, femoral, proximal profunda femoral and popliteal veins are patent without thrombus. Normal Doppler waveforms. Normal compressibility and/or augmentation response. Superficial veins: Greater saphenous veins at the saphenofemoral junctions are patent bilaterally without thrombus. Soft tissues: Unremarkable. US/CV venous duplex [facility] [id number] IMPRESSION: No evidence of deep vein thrombosis.
--- NOTE | 2025-06-24 12:17 | ECG_ITS ---
[facility] Test Date: 2025-06-24 Pat Name: Cathi Smith Department: Room: Gender: Female Flour Inspector: : 1970 Requested By: Daniel Hardy Order Number: [id number] Roblero MD: Nicholas Liu M.D. Measurements Intervals [place] Rate: 82 P: 50 [place]: 166 QRS: -1 QRSD: 88 T: 33 QT: 350 QTc: 411 Interpretive Statements SINUS RHYTHM NONSPECIFIC T-WAVE ABNORMALITY Compared to ECG 06/24/2025 10:34:32 T-wave abnormality now present Electronically Signed On 06-24-2025 14:06:16 [employer]LAY STAIN MIXER by Nicholas Liu M.D. [email or web address] [id number]
--- NOTE | 2025-06-24 12:17 | CTR_ITS ---
PROCEDURE INFORMATION: Exam: CTA Chest With Contrast Exam date and time: 06/24/2025 1:33 PM Age: 55 years old Clinical indication: Shortness of breath; Additional info: SOB TECHNIQUE: Imaging protocol: Computed tomographic angiography of the chest with contrast. Exam focused on the arteries. 3D rendering (Not supervised by radiologist): MIP and/or 3D reconstructed images were created by the technologist. Radiation optimization: All CT scans at this facility use at least one of these dose optimization techniques: automated exposure control; mA and/or kV adjustment per patient size (includes targeted exams where dose is matched to clinical indication); or iterative reconstruction. Contrast material: OMNI 350; Contrast volume: 62 ml; Contrast route: INTRAVENOUS (IV); COMPARISON: CR (CHEST, ) 06/24/2025 10:46 AM. MR cervical spine dated 07/13/2023. CT abdomen and pelvis dated 02/05/2022. RADIATION DOSE METRICS: Total DLP (mGy-cm): 432.31 FINDINGS: Pulmonary arteries: Pulmonary arteries are normal. No pulmonary embolus. Aorta: The aorta is unremarkable. No aneurysm. Lungs: 23 mm soft tissue nodule, right lung base, image 5/37. 16 mm soft tissue nodule, lower lobe right lung, image 5/29. Additional smaller nodules of the right lung. Small dependent left pleural effusion. Compressive atelectasis of the posterior left lung base. Pleural spaces: No pneumothorax. Heart: There is cardiomegaly. Esophagus: The esophagus is unremarkable. Lymph nodes: Mediastinal and right hilar adenopathy. Lymph nodes measure up to 12 mm in short axis, as seen with a subcarinal node, image 5/24. Adrenal glands: The adrenal glands are normal in appearance. Status post cholecystectomy. Remaining visible upper abdomen is unremarkable. Bones/joints: Chronic appearing severe compression deformity of the T4 vertebral body, image 9/25. Chronic appearing [id number]-pnownmpz compression deformity of the T5 vertebral body. Acute nondisplaced fracture, posterior aspect right 2nd rib, image 8/17. Acute nondisplaced fracture, lateral aspect, right 5th rib. Acute mildly displaced fracture, lateral aspect, right 6th rib. Acute nondisplaced fracture, posterior left 1st rib, image 5/6. Acute mildly displaced fracture, lateral aspect left 8th rib, image 5/44. Acute mildly displaced fracture, lateral aspect left 9th rib, image 5/49. Multiple chronic, healed fracture deformities of multiple left and right ribs. Soft tissues: 13 mm ovoid nodule with macro calcification, lateral left breast consistent with hyalinized fibroadenoma. The remaining soft tissue is unremarkable. CT/CT angio chest PE protcl [id number] IMPRESSION: 1. Pulmonary arteries are normal. No pulmonary embolus. 2. Multiple soft tissue nodules of the right lung, the largest measures 23 mm, concerning for primary lung carcinoma or metastases. Consider non-emergent PET/CT or tissue sampling. (Reference: Radha) References: Radha Reeves, et al. Guidelines for Management of Incidental Pulmonary Nodules Detected on CT Images: From the Fleischner Society 2017. Radiology. 2017;284(1):228-243. 3. Multiple bilateral rib fractures of different ages, including multiple acute fractures. 4. Chronic appearing compression deformities of the T4 and T5 vertebral bodies. 5. Small left pleural effusion with compressive atelectasis of the left lung. 6. Pneumothorax. 7. Multiple enlarged mediastinal and right hilar lymph nodes concerning for lymph node metastases.
--- NOTE | 2025-06-24 12:18 | PC.PHAR ---
Pt has 5 total, orders for pain management. Tylenol, Naprosyn, Tramadol, Morphine, and Oxycodone.
[2025-06-24] MEDS: cefTRIAXone 1,000 mg SDV 1000 MG IVP (12:24)
[2025-06-24] MEDS: hydrocortisone 100 mg/2 mL SDV IVP (12:26)
--- NOTE | 2025-06-24 12:35 | PM.HP ---
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 Currently patient alert oriented x 3, follow commands, she is on room air, blood pressure 133/69, pulse is 82, respiratory rate is 18, temperature 98.2. She tells me that about a week ago she had a fall, she really did not have any rib pain but she had what it sounds like fracture involving her left foot, she has been in the boot, she is weightbearing, is being medically managed, but she tells me that she has been short of breath, she has had a cough, fatigue, malaise, wheezing, shortness of breath, she has been more immobile, no sick contacts, no recent travel, does have left-sided chest discomfort, more chest wall discomfort with taking a deep breath in, Review of Systems Const: Reports: fever(s) and chills Card: Reports: chest pain Resp: Reports: dyspnea Medications/Allergies Home Medications ?Medication ?Instructions ?Recorded ?Confirmed ?Last Taken ?Type conjugated estrogens 0.625 mg/gram 0.625 mg vaginal .COMPLEX 10/03/19 06/24/25 02/04/22 History vaginal cream (Premarin) losartan 100 mg tablet 100 mg PO DAILY 10/03/19 06/24/25 06/24/25 History promethazine 25 mg tablet 25 mg PO Q6H PRN Nausea 10/03/19 06/24/25 Unknown History fluticasone propionate 50 1 spray intranasal DAILY PRN 11/08/19 06/24/25 Unknown History mcg/actuation nasal allergies spray,suspension levalbuterol tartrate 45 2 inh inhalation Q4H PRN Shortness 11/08/19 06/24/25 Unknown History mcg/actuation aerosol inhaler Of Breath (Xopenex HFA) mometasone-formoterol HFA 100 2 puff inhalation BID 11/08/19 06/24/25 06/24/25 History mcg-5 mcg/actuation aerosol inhaler (Dulera) azelastine 137 mcg (0.1 %) nasal 1 spray intranasal BID PRN 11/29/19 06/24/25 Unknown History spray allergies ascorbic acid (vitamin C) 500 mg 500 mg PO DAILY 01/25/20 06/24/25 06/24/25 History capsule vitamin B complex 1 cap PO DAILY 01/25/20 06/24/25 06/24/25 History jaden root 1 tab PO DAILY 04/24/20 06/24/25 06/24/25 History cholecalciferol (vitamin D3) 50 50 mcg PO DAILY 06/17/20 06/24/25 06/24/25 History mcg (2,000 unit) capsule spironolactone 50 mg tablet 50 mg PO BID #60 tabs 07/26/20 06/24/25 06/24/25 Rx hydrocortisone 10 mg tablet See Rx Instructions .Route .COMPLEX 01/07/21 06/24/25 06/24/25 History immune globulin,gamma(IgG)klhw 10 10 g SUBCUT Q7D 04/15/21 06/24/25 05/06/25 History gram/50 mL(20%)subcut solution levocetirizine 5 mg tablet (Xyzal) 5 mg PO DAILY 06/17/21 06/24/25 06/24/25 History methocarbamol 750 mg tablet 750 mg PO TID PRN Muscle Spasm 06/14/23 06/24/25 Unknown History acetaminophen 500 mg capsule 500 mg PO BID PRN Pain 09/21/23 06/24/25 Unknown History etanercept 50 mg/mL (1 mL) 50 mg SUBCUT .Q7days #4 mL 12/11/24 06/24/25 Unknown Rx subcutaneous syringe (Enbrel) prednisone 5 mg tablet 7.5 mg (1.5 x 5 mg) PO DAILY #135 12/11/24 06/24/25 06/24/25 Rx tabs tramadol 50 mg tablet 50 mg PO TID PRN pain #60 tabs 04/20/25 06/24/25 Unknown Rx mupirocin 2 % topical ointment 1 applic topical TID #15 grams 05/02/25 06/24/25 Unknown Rx amlodipine 10 mg tablet 10 mg PO DAILY 06/24/25 06/24/25 06/24/25 History celecoxib 200 mg capsule 200 mg PO BID 06/24/25 06/24/25 06/24/25 History famotidine 40 mg tablet 40 mg PO DAILY PRN upset stomach 06/24/25 06/24/25 Unknown History furosemide 20 mg tablet 20 mg PO DAILY PRN swelling 06/24/25 06/24/25 Unknown History lidocaine 5 % topical patch 1 patch topical Q24H PRN Pain 06/24/25 06/24/25 Unknown History metoprolol succinate 25 mg 25 mg PO DAILY 06/24/25 06/24/25 06/24/25 History tablet,extended release 24 hr metoprolol succinate 50 mg 50 mg PO DAILY 06/24/25 06/24/25 06/24/25 History tablet,extended release 24 hr metoprolol tartrate 25 mg tablet 25 mg PO DAILY PRN Migraine 06/24/25 06/24/25 Unknown History Headache morphine 30 mg tablet,extended 30 mg PO BID PRN extended relief 06/24/25 06/24/25 Unknown History release naproxen 500 mg tablet 500 mg PO BID 06/24/25 06/24/25 06/24/25 History oxycodone 10 mg tablet 10 mg PO .2-3 TIMES DAILY PRN 06/24/25 06/24/25 Unknown History Breakthrough Pain Allergies Allergy/AdvReac Type Severity Reaction Status Date / Time gabapentin Allergy unknown Verified 05/02/25 11:28 albuterol AdvReac Unknown RASH, Verified 05/02/25 11:28 BLISTERS TO FACE AND HTN certolizumab pegol (From AdvReac Unknown SWELLING Verified 05/02/25 11:28 Cimzia) hydralazine AdvReac Unknown HEADACHE/HT Verified 05/02/25 11:28 N/FLUSHING lisinopril AdvReac Unknown Unknown Verified 05/02/25 11:28 PFSH Acute PFSH: Medical History Hypogammaglobulinemia Seronegative rheumatoid arthritis of both hands Hx of diverticulitis of colon Recurrent infections Cholecystectomy planned Anxiety state Immunization counseling Rheumatoid arthritis with negative rheumatoid factor High risk medication use Immunosuppression Seronegative rheumatoid arthritis Opioid contract exists Encounter for long-term use of opiate analgesic Back pain, lumbosacral Cystocele Rectocele Surgical History S/P hernia repair Laparoscopic Incisional Hernia Repair 02/05/22 H/O left knee surgery ACL right H/O dilation and curettage H/O section H/O hernia repair H/O arthroscopic knee surgery History of colon resection Family History Other CAD (coronary artery disease) Diabetes Hypertension Lupus (systemic lupus erythematosus) Psychiatric illness Rheumatoid arthritis Denies family history of Anesthesia complication Bleeding disorder Social History Smoking and tobacco/nicotine status: former use of tobacco/nicotine Second hand smoke exposure: No Alcohol intake: former Substance/Drug Use: never Vitals/I&O/Wt Last Vital Signs Temp 98.2 F 06/24/25 10:31 Pulse 82 06/24/25 11:13 Resp 18 06/24/25 11:08 BP 133/69 06/24/25 10:31 Pulse Ox 94 06/24/25 11:08 O2 Del Method Room Air 06/24/25 11:08 06/23/25 06/24/25 06/24/25 22:59 05:59 14:59 Intake Total 0 / 0 Balance 0 / 0 Weight last 48 hrs Weight 90.718 kg Physical Exam Const: COMMON NORMALS: no acute distress and patient oriented x3 Resp: OTHER: Nasal flaring or intercostal retractions, suprasternal retractions, tachypnea, wheezing and crackles in all lung smalls, short of breath with a few words Cardio: COMMON NORMALS: no JVD, regular rate, regular rhythm, S1 normal heart sound present and S2 normal heart sound present RATE: regular rate RHYTHM: regular rhythm HEART SOUNDS: S1 normal heart sound present and S2 normal heart sound present GI: COMMON NORMALS: Normal to inspection, nondistended, normoactive bowel sounds present, Soft to palpation and non-tender Extremity: COMMON NORMALS: no pedal edema NARRATIVE EXTREMITY EXAM: Bilateral calf pain Neuro: COMMON NORMALS: patient oriented x3, CN's II-XII intact bilaterally and moves all extremities Psych: COMMON NORMALS: mental status grossly normal Data 06/24/25 10:47 06/24/25 10:47 Micro: Microbiology 06/24/25 12:00 Blood Culture - Preliminary Blood SPECIMEN COLLECTED 06/24/25 12:00 Blood Culture - Preliminary Blood SPECIMEN COLLECTED A&P Assessment and plan 1. Acute hypoxic respiratory failure: Plan: Acute hypoxic respiratory failure - Secondary to concerns for left lower lobe pneumonia - Left pleural effusion - With immunocompromise state, chronically on IgG, currently on Enbrel - Chronically on hydrocortisone, prednisone -Clinically patient has mild respiratory distress, nasal flaring, intercostal retractions, tachypnea, short of breath after fevers diffuse crackles and wheezing in all lung smalls -Left chest pleurisy Plan - Monitor respiratory status closely -CT angiogram of the chest, serial troponins, venous ultrasound bilateral lower extremity - Xopenex - Stress dose steroids - Sputum culture - Blood culture - Rocephin - Azithromycin - Continue home prednisone, and hydrocortisone - Low-dose insulin sliding scale, A1c - Full code - Lovenox for DVT prophylaxis Left-sided chest pain - More like left-sided chest pleurisy - Serial EKGs, serial troponins, telemetry monitoring PDMP PDMP Reviewed: Last Reviewed 06/24/25 12:20 by Daniel Hardy MD Attestations Medical Necessity Statement*: Patient requires hospitalization, inpatient, greater than 2 midnights for acute hypoxic respiratory failure Diagnoses Acute hypoxic respiratory failure J96.01
[2025-06-24 12:39] LABS: Estmated Average Glucose 163; Hemoglobin A1C 7.3 % (4.0-6.0); Troponin(5th) Baseline 50 ng/L (0-10)
[2025-06-24] MEDS: iohexol 350 mg/mL 500 mL Btl (per mL) IV (12:40)
[2025-06-24 12:47] LABS: Troponin 5 2HR 35.88 ng/L (0-10); Troponin 5 2HR Delta -14.12 ABS# (0-10)
[2025-06-24 12:51] LABS: Lactic Sepsis W/Reflex 2.6 mmol/L (0.5-2.2)
[2025-06-24 12:51] LABS: Procalcitonin 0.10 ng/mL (0-0.5)
[2025-06-24 12:55] LABS: Reflex Lactate Order REFLEX LACTIC ORDERD
--- NOTE | 2025-06-24 14:17 | ECG_ITS ---
[facility] Test Date: 2025-06-24 Pat Name: Cathi Smith Department: Room: Gender: Female Financial Cost Analyst: : 1970 Requested By: Daniel Hardy Order Number: [id number] Roblero MD: Nicholas Liu M.D. Measurements Intervals [place] Rate: 92 P: 50 RI: 155 QRS: 2 QRSD: 84 T: 48 QT: 333 QTc: 413 Interpretive Statements SINUS RHYTHM POSSIBLE LEFT ATRIAL ENLARGEMENT [-0.1mV P-WAVE IN V1/V2] Compared to ECG 06/24/2025 12:29:05 NO SIGNIFICANT CHANGE Electronically Signed On 06-24-2025 15:30:14 SAFETY PATROL OFFICER by Nicholas Liu M.D. [email or web address]
[2025-06-24 15:16] LABS: Lactic Acid level (Lactate) 2.1 mmol/L (0.5-2.2)
--- OUTSIDE RECORDS SUMMARY | 2025-06-24 15:51 | XMS_ITS | Encounter Summary ---
Author Organization [facility] Address [address] [place] [address] Care Team Providers Care Car Salesperson Name Role Phone Nir Paulson MD Primary Care Provider [phone] Reason for Visit * Reason Comments Provider Call Encounter Details Date Type Department Care Team (Late st Contact Info) Description 06/22/[address] [facility] Family Medicine [address] [address] Nir Paulson MD [address] [address] Provider Call Social History Tobacco [...] worry about transportation for future doctor visits, picking belt operator medication, etc.? No 2024 Housing Stability Answer Date Recorded Do you worry you won t have a steady place to sleep or struggle to pay rent or mortgage? No 06/01/2025 Utility Needs Answer Date Recorded Do you have difficulty payin g for utility costs ([employer] water or gas bills)? No 06/01/2025 Medication [...] on file Legal Sex Female 3:40 AM LABORATORY VETERINARIAN Gender Identity Not on file Sexual Orientation Not on file documented as of this encounter Miscellaneous Notes * Telephone Encounter - Arianna Serrato LPN - 06/22/2025 9:24 AM CDT Approval received 06-21-25. Visit summary faxed. Arianna Serrato LPN, 06/22/2025 9:24 AM * Telephone Encounter - Brayan Da Silva - 06/22/2025 9:18 AM CDT Copied from [facility] #[id number]. Topic: [place] Call >> Jun 22, 2025 9:02 AM Brayan Reeves wrote: Caller is requesting to speak with Clinical Care Team. Caller Name: Marianne with [employer] Callback Number: Telephone Information: Is the caller a Physician, Nurse Practitioner or Physician Commissary Officer? No Call Notes: Needing a prior authorization from [place] Medicaid and chart note from the visit on 06/19/2025 for the DME Nebulizer Machine needed for the patient. Please review and fax information tofax # [phone] Is this addressing an immediate patient care need? No documented in this encounter Plan of Treatment Upcoming Encounters Date Type Department Care Team (Late st Contact Info) Description 06/25/2025 1:00 PM LABORATORY VETERINARIAN Appointment [facility] [address] [facility] [address] [place] [address] Oralia Elliott, CLINICAL RESEARCH SPECIALIST [address] [facility] [address] [place] [address] 06/25/2025 2:00 PM LABORATORY VETERINARIAN Appointment [facility] Ultrasound [place] [address] [place] [address] Lima Perez, CONSTANZA [address] [place] [address] 06/25/2025 2:45 PM LABORATORY VETERINARIAN Appointment [facility] CT Scan [place] [address] [place] [address] Lima Perez, CONSTANZA [address] [place] [address] 07/04/2025 1:40 PM LABORATORY VETERINARIAN Office Visit [facility] Orthopedics [place] [address] [place] [address] Byron Rubi PA-C [address] [place] [address] 07/10/2025 1:00 PM LABORATORY VETERINARIAN Office Visit [facility] [address] [place] [address] Berlin Summers PA [address] [place] [address] [place] [address] 08/08/2025 3:30 PM LABORATORY VETERINARIAN Office Visit [facility] Douglas Zheng [place] [address] [place] [address] Nanda Mg NP [address] [place] [address] [place] [address] 08/27/2025 2:20 PM LABORATORY VETERINARIAN Telephone Check Up [facility] Neurosurgery [address] [place] [address] [place] [address] Martínez Han MD [address] [place] [address] 11/07/2025 2:40 PM CDT Office Visit [facility] Family Medicine [place] [address] [address] Nir Paulson MD [address] [place] [address] 11/13/2025 2:30 PM CDT Office Visit [facility] [address] [place] [address] Alfred Tracy MD [address] [place] [address] [place] [address] 01/15/2026 8:45 AM CDT Office Visit [facility] Neurology - [place] [address] [place] [address] Martínez Han MD [address] [place] [address] Yaneth Bsas MD [address] [place] [address] documented as of this encounter Visit Diagnoses Not on filedocumented in this encounter Additional Health Concerns Infection Onset Date Last Indicated Resolved Time Parainfluenza 06/20/2025 06/20/2025 documented as of this encounter Care Teams Car Salesperson Relationship Specialty Start Date End Date Nir Paulson MD [address] [address] PCP - General Family Practice 10/13/21 documented as of this encounter
--- OUTSIDE RECORDS SUMMARY | 2025-06-24 15:51 | XMS_ITS | Encounter Summary ---
Author Organization [facility] Address [address] [place] [address] Care Team Providers Care Filenet Admin Name Role Phone Nir Paulson MD Primary Care Provider [phone] Encounter Details Date Type Department Care Team (Late st Contact Info) Description 05/29/2025 Lab Requisition [facility] General Laboratory Services [place] [address] [place] [address] Lima Perez NP [address] [place] [address] Chest pain, unspecified; Localized edema [...] have difficulty payin g for utility costs ([employer] water or gas bills)? No 06/01/2025 Medication [...] on file Legal Sex Female 3:40 AM MARKET RELATIONSHIP MANAGER Gender Identity Not on file Sexual Orientation Not on file documented as of this encounter Plan of Treatment Upcoming Encounters Date Type Department Care Team (Late st Contact Info) Description 06/25/2025 1:00 PM MARKET RELATIONSHIP MANAGER [facility] [place] [address] [address] Oralia Elliott, VISITOR SERVICES ASSISTANT [address] [facility] [address] [place] [address] 06/25/2025 2:00 PM MARKET RELATIONSHIP MANAGER Appointment [facility] Ultrasound [place] [address] [address] Lima Perez NP [address] [place] [address] 06/25/2025 2:45 PM MARKET RELATIONSHIP MANAGER Appointment [facility] CT Scan [place] [address] [address] Lima Perez NP [address] [place] [address] 07/04/2025 1:40 PM MARKET RELATIONSHIP MANAGER Office Visit [facility] Orthopedics [place] [address] [facility] [address] [place] [address] Byron Rubi PA-C [address] [place] [address] 07/10/2025 1:00 PM MARKET RELATIONSHIP MANAGER Office Visit [facility] [address] [place] [address] Berlin Summers PA [address] [place] [address] 08/08/2025 3:30 PM MARKET RELATIONSHIP MANAGER Office Visit [facility] Douglas [place] [address] [place] [address] Nanda Mg NP [address] [place] [address] 08/27/2025 2:20 PM MARKET RELATIONSHIP MANAGER Telephone Check Up [facility] Neurosurgery [address] [place] [address] [place] [address] Martínez Han MD [address] [place] [address] 11/07/2025 2:40 PM CDT Office Visit [facility] Family Medicine [place] [address] [address] Nir Paulson MD [address] [address] 11/13/2025 2:30 PM CDT Office Visit [facility] Endocrinology [facility] [address] [place] [address] Alfred Tracy MD [address] [place] [address] 01/15/2026 8:45 AM CDT Office Visit [facility] Neurology - [place] [address] [place] [address] Martínez Han MD [address] [place] [address] Yaneth Bass MD [address] [place] [address] documented as of this encounter [...] 4.0 - 10.0 K/uL 05/29/2025 4:41 PM [facility] RBC 4.16 3.93 - 5.22 M/uL 05/29/2025 4:41 PM [facility] HEMOGLOBIN 12.7 11.2 - 15.7 g/dL 05/29/2025 4:41 PM [facility] HEMATOCRIT 37.8 34.1 - 44.9 % 05/29/2025 4:41 PM [facility] MCV 90.9 79.4 - 94.8 fL 05/29/2025 4:41 PM [facility] MCH 30.5 25.6 - 32.2 pg 05/29/2025 4:41 PM [facility] MCHC 33.6 32.2 - 35.5 g/dL 05/29/2025 4:41 PM [facility] RDW 13.3 11.0 - 14.5 % 05/29/2025 4:41 PM [facility] RDW-STDEV 44.1 36.9 - 56.9 fL 05/29/2025 4:41 PM [facility] PLATELETS 388(H) 163 - 337 K/uL 05/29/2025 4:41 PM [facility] MPV 8.4(L) 10.0 - 14.8 fL 05/29/2025 4:41 PM [facility] NEUTROPHILS 82(H) 34 - 71 % 05/29/2025 4:41 PM [facility] LYMPHOCYTES 11(L) 19 - 52 % 05/29/2025 4:41 PM [facility] MONOCYTES 5 5 - 13 % 05/29/2025 4:41 PM [facility] EOSINOPHILS 0(L) 1 - 6 % 05/29/2025 4:41 PM [facility] BASOPHILS 1 0 - 1 % 05/29/2025 4:41 PM [facility] IMMATURE GRANULOCYTES 1 % 05/29/2025 4:41 PM [facility] NEUTROPHIL ABSOLUTE 6.87(H) 1.56 - 6.13 K/uL 05/29/2025 4:41 PM [facility] LYMPHOCYTE ABSOLUTE 0.92(L) 1.20 - 3.40 K/uL 05/29/2025 4:41 PM [facility] MONOCYTE ABSOLUTE 0.45(H) 0.24 - 0.36 K/uL 05/29/2025 4:41 PM [facility] EOSINOPHIL ABSOLUTE 0.00(L) 0.04 - 0.36 K/uL 05/29/2025 4:41 PM [facility] BASOPHILS ABSOLUTE 0.04 0.01 - 0.08 K/uL 05/29/2025 4:41 PM [facility] IMMATURE GRANULOCYTES ABSOLUTE 0.09 K/uL 05/29/2025 4:41 PM [facility] Blood BLOOD SPECIMEN / Unknown Collection / Unknown 05/29/2025 4:35 PM CDT 05/29/2025 4:38 PM CDT us Lima Chris PROTECTION MANAGER HEMATOLOGY ORDERABLES Final Re sult [facility] CLIA # [id number] [address] [place] [address] * (ABNORMAL) C-REACTIVE PROTEIN (05/29/2025 4:35 PM CDT) CRP 7.7(H) <5.0 mg/L 05/29/2025 4:54 PM CDT [facility] Blood BLOOD SPECIMEN / Unknown Collection / Unknown 05/29/2025 4:35 PM CDT 05/29/2025 4:38 PM CDT us Lima [place] PROTECTION MANAGER CHEMISTRY ORDERABLES Final Res ult [facility] CLIA # [id number] [address] [place] [address] * (ABNORMAL) COMPREHENSIVE METABOLIC PANEL (05/29/2025 4:35 PM CDT) SODIUM 140 136 - 145 mmol/L 05/29/2025 4:54 PM CDT [facility] POTASSIUM 4.2 3.5 - 5.1 mmol/L 05/29/2025 4:54 PM CDT [facility] CHLORIDE 100 98 - 107 mmol/L 05/29/2025 4:54 PM CDT [facility] CO2 25 22 - 29 mmol/L 05/29/2025 4:54 PM CDT [facility] CALCIUM 10.1(H) 8.6 - 10.0 mg/dL 05/29/2025 4:54 PM CDT [facility] BUN 16 6 - 20 mg/dL 05/29/2025 4:54 PM CDT [facility] CREATININE 0.81 0.51 - 0.95 mg/dL 05/29/2025 4:54 PM CDT [facility] GLUCOSE 153(H) 74 - 99 mg/dL 05/29/2025 4:54 PM T [facility] TOTAL PROTEIN 7.0 6.6 - 8.7 g/dL 05/29/2025 4:54 PM [facility] ALBUMIN 4.3 3.5 - 5.2 g/dL 05/29/2025 4:54 PM [facility] BILIRUBIN TOTAL 0.2 0.0 - 1.2 mg/dL 05/29/2025 4:54 PM [facility] ALKALINE PHOSPHATASE 124(H) 35 - 104 U/L 05/29/2025 4:54 PM [facility] AST 31 0 - 35 U/L 05/29/2025 4:54 PM [facility] ALT 45(H) 0 - 35 U/L 05/29/2025 4:54 PM [facility] GFR >60 >=60 mL/min/1.7 3 sq meter 05/29/2025 4:54 PM T [facility] Comment:eGFR calculated with 2020 CKD-EPI equation. Vegetarian diet, extremely high or low muscle mass, and may affect results. Cystatin C with Glomerular Filtration Rate is a suitable alternative for these patients. ANION GAP 15 5 - 20 mmol/L 05/29/2025 4:54 PM [facility] Blood BLOOD SPECIMEN / Unknown Collection / Unknown 05/29/2025 4:35 PM CDT 05/29/2025 4:38 PM CDT us Lima Perez NP CHEMISTRY ORDERABLES Final Res ult [facility] CLIA # [id number] [address] [place] [address] * (ABNORMAL) BRAIN NATRIURETIC PEPTIDE, BNP OR PROBNP (05/29/2025 4:35 PM CDT) PROBNP, N TERMINAL 278(H) 0 - 125 pg/mL 05/29/2025 4:54 PM CDT [facility] Comment: INTERPRETIVE COMMENT based on [...] 05/29/2025 4:38 PM CDT us Lima Perez PROTECTION MANAGER CHEMISTRY ORDERABLES Final Res ult [facility] CLIA # [id number] [address] [place] [address] documented in this encounter Visit Diagnoses Diagnosis Chest pain, unspecified Localized edema Edema documented in this encounter Additional Health Concerns Infection Onset Date Last Indicated Resolved Time R/O Respiratory 06/19/2025 06/20/2025 06/20/2025 6 :41 PM CDT Parainfluenza 06/20/2025 06/20/2025 documented as of this encounter Care Teams Filenet Admin Relationship Specialty Start Date End Date Nir Paulson MD [address] [facility] [place] [address] PCP - General Family Practice 10/13/21 documented as of this encounter
--- OUTSIDE RECORDS SUMMARY | 2025-06-24 15:51 | XMS_ITS | Encounter Summary ---
Author Organization [facility] Address [address] [place] [address] Care Team Providers Care Mushroom Sorter Grader Name Role Phone Veronica Carvajal MD Primary Care Provider [phone] Reason for Referral * Outpatient Services (Routine) - Closed Specialty Diagnoses / Procedures Referred By Contac t Referred To Contact Diagnoses Abnormal findings on diagnostic imaging of breast Procedures MAMMO POST US/STEREO GUIDED PROCEDURE LT Tom Steen Jr., MD Phone: tel: fax: [facility] Pre-Registration [place] CALL TO MAKE APPOINTMENT ONLY [address] [place] [address] Phone: tel: fax: Referral ID Status Reason Start Date Expiration Date Visits Re quested Visits Authorized [id number] Closed 05/31/2017 07/01/2018 1 1 * Outpatient Services (Routine) - Closed Specialty Diagnoses / Procedures Referred By Contac t Referred To Contact Diagnoses Abnormal findings on diagnostic imaging of breast Procedures MAMMO BREAST US BIOPSY LEFT Tom Steen Jr., MD Phone: tel: fax: [facility] Pre-Registration [place] CALL TO MAKE APPOINTMENT ONLY [address] [place] [address] Phone: tel: fax: Referral ID Status Reason Start Date Expiration Date Visits Re quested Visits Authorized [id number] Closed 05/31/2017 07/01/2018 1 1 Encounter Details Date Type Department Care Team (Late st Contact Info) Description 05/31/2017 Ancillary Orders [facility] Breast [place] [address] [place] [phone] Tom Steen Jr., MD [address] [place] [phone] Abnormal findings on diagnostic imaging of breast [...] on file 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 [id number] Narrative 06/03/2017 3:46 PM CDT EXAM: MAMMO [...] mammogram in 6 months to ensure stability. [id number] Narrative 06/03/2017 3:46 PM CDT EXAM: MAMMO [...] breast documented in this encounter Care Teams Mushroom Sorter Grader Relationship Specialty Start Date End Date Veronica Carvajal MD [address] [facility] [address] [place] [address] PCP - General Family Practice 11/20/20 documented as of this encounter
--- OUTSIDE RECORDS SUMMARY | 2025-06-24 15:51 | XMS_ITS | Encounter Summary ---
Author Organization [facility] Address [address] [place] [address] Care Team Providers Care Office Analyst Name Role Phone Veronica Carvajal MD Primary Care Provider Encounter Details Date Type Department Care Team (Latest Contact Info) Description 08/10/2002 Outpatient Historical HIS [facility] Nir Soto MD [address] [place] [address] UNS ASTHMA WOSTATUS ASTHMATICUS (Primary Dx); MIGRAINE NOS W/O MENTN INTRACTABLE Social History Tobacco Use Types Packs/Day Years Used Date Smoking Tobacco: Never Assessed Comments Unknown Sex and Gender Information Value Date Recorded Sex Assigned at Not on file 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 WAITER/WAITRESS TAKE OUT Gender Identity Not on file Sexual Orientation Not on file documented as of this encounter Plan of Treatment Not on file documented as of this encounter Visit Diagnoses Diagnosis Unspecified asthma(493.90)- Primary Unspecified asthma Migraine, unspecified, without mention of intractable migraine without mention of status migrainosus documented in this encounter Care Teams Office Analyst Relationship Specialty Start Date End Date Veronica Carvajal MD [address] [phone] PCP - General Family Practice 11/20/20 documented as of this encounter
--- OUTSIDE RECORDS SUMMARY | 2025-06-24 15:51 | XMS_ITS | Encounter Summary ---
Author Organization [facility] Address [address] [place] [address] Care Team Providers Care Commission Agent Livestock Name Role Phone Nir Paulson MD Primary Care Provider [phone] Reason for Visit * Reason Onset Date Comments Results 06/21/2025 Encounter Details Date Type Department Care Team (Late st Contact Info) Description 06/21/2025 Results Follow-Up [facility] Family Medicine [address] [address] Nir Paulson MD [address] [address] RESPIRATORY PATHOGEN PCR PANEL, [...] worry about transportation for future doctor visits, olive picker medication, etc.? No 2024 Housing Stability [...] on file Legal Sex Female 3:40 AM SPOUT LINER HELPER Gender Identity Not on file Sexual [...] st Contact Info) Description 06/25/2025 1:00 PM SPOUT LINER HELPER Appointment [facility] Services [place] [address] [address] Oralia Elliott, SAWMILL PRODUCTION WORKER [address] [facility] 60 [place] [address] 06/25/2025 2:00 PM SPOUT LINER HELPER Appointment [facility] Ultrasound [place] [address] [address] Lima Perez, GARAGE DOOR TECHNICIAN [address] [place] [address] 06/25/2025 2:45 PM SPOUT LINER HELPER Appointment [facility] CT Scan [place] [address] [address] Lima Perez, GARAGE DOOR TECHNICIAN [address] [place] [address] 07/04/2025 1:40 PM SPOUT LINER HELPER Office Visit [facility] Orthopedics [place] [address] [facility] [address] [place] [address] Byron Rubi PA-C [address] [place] [address] 07/10/2025 1:00 PM SPOUT LINER HELPER Office Visit [facility] [address] [place] [address] Berlin Summers PA [address] [place] [address] 08/08/2025 3:30 PM SPOUT LINER HELPER Office Visit [facility] Douglas Zheng Olivier [address] [place] [address] Nanda Mg NP [address] [place] [address] 08/27/2025 2:20 PM SPOUT LINER HELPER Telephone Check Up [facility] Neurosurgery [address] [place] [address] [place] [address] Martínez Han MD [address] [place] [address] 11/07/2025 2:40 PM CDT Office Visit [facility] Family Medicine [place] [address] [address] Nir Paulson MD [address] [address] 11/13/2025 2:30 PM CDT Office Visit [facility] Endocrinology [facility] [address] [place] [address] Alfred Tracy MD [address] [place] [address] 01/15/2026 8:45 AM CDT Office Visit [facility] Neurology - [place] [address] [place] [address] Martínez Han MD [address] [place] [address] Yaneth Bass MD [address] [facility] [address] [place] [address] documented as of this encounter Visit Diagnoses Not on filedocumented in this encounter Additional Health Concerns Infection Onset Date Last Indicated Resolved Time Parainfluenza 06/20/2025 06/20/2025 documented as of this encounter Care Teams Commission Agent Livestock Relationship Specialty Start Date End Date Nir Paulson MD [address] [place] [phone] PCP - General Family Practice 10/13/21 documented as of this encounter
--- OUTSIDE RECORDS SUMMARY | 2025-06-24 15:51 | XMS_ITS | Encounter Summary ---
Author Organization [facility] Address [address] [place] [address] Care Team Providers Care Tube Mill Operator Name Role Phone Veronica Carvajal MD Primary Care Provider [phone] Reason for Referral * Radiology Services (Routine) - Closed Specialty Diagnoses / Procedures Referred By Contac t Referred To Contact Pain Management Diagnoses Other back pain, unspecified chronicity Lumbosacral radiculitis Procedures XR FLUORO LESS THAN 1 HOUR Reymundo Liao MD [facility] Pain Management Procedures [place] [address] [place] [address] Phone: tel: fax: Referral ID Status Reason Start Date Expiration Date Visits Re quested Visits Authorized [id number] Closed 08/19/2020 09/19/2021 1 1 TANNER Encounter Details Date Type Department Care Team (Late st Contact Info) Description 08/19/2020 Ancillary Orders [facility] Pain Management Procedures [place] [address] [place] [address] Reymundo Liao MD NO ADDRESS [...] on file 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 BARK TANNER Gender Identity Not on file Sexual Orientation [...] COVID-19? No / Unsure 08/22/2020 1:19 PM BARK TANNER documented as of this encounter Plan of Treatment Not on file documented as of this encounter Results * XR FLUORO LESS THAN 1 HOUR (08/19/2020 7:35 AM BARK TANNER) Narrative 08/19/2020 7:51 AM BARK TANNER Order information only. Exam was auto-finalized. Reymundo Liao MD DIAGNOSTIC IMAGING ORDERAB LES Final Result documented in this encounter Visit Diagnoses Diagnosis Other back pain, unspecified chronicity Lumbosacral radiculitis Thoracic or lumbosacral neuritis or radiculitis, unspecified Other back pain, unspecified chronicity Lumbosacral radiculitis Thoracic or lumbosacral neuritis or radiculitis, unspecified documented in this encounter Care Teams Tube Mill Operator Relationship Specialty Start Date End Date Veronica Carvajal MD [address] [facility] [address] [place] [address] PCP - General Family Practice 11/20/20 documented as of this encounter
--- OUTSIDE RECORDS SUMMARY | 2025-06-24 15:51 | XMS_ITS | Encounter Summary ---
Author Organization [facility] Address [address] [place] [address] Care Team Providers Care Splicing Technician Name Role Phone Nir Paulson MD Primary Care Provider [phone] Reason for Visit * Reason Onset Date Comments Results 09/14/2024 Encounter Details Date Type Department Care Team (Late st Contact Info) Description 09/14/2024 Results Follow-Up [facility] Family Medicine [place] [address] [address] Oralia Elliott, [facility] [address] [address] URIC ACID Social History Tobacco [...] on file Legal Sex Female 3:40 AM RIFLE CASE REPAIRER Gender Identity Not on file Sexual Orientation Not on file documented as of this encounter Miscellaneous Notes * Telephone Encounter - Suri Palacios RN - 09/14/2024 2:48 PM RIFLE CASE REPAIRER 09/14/2024 2:48 PM No answer. No voicemail or answering machine. Will continue to try to reach patient/caregiver. . Ifpatient/caregiver calls back, contact center please tell caller to review the information which canbe accessed via [facility] and call back with any questions. Suri RN E CASE REPAIRER * Telephone Encounter - Suri Palacios RN - 09/14/2024 2:48 PM RIFLE CASE REPAIRER ----- Message from Oralia Elliott sent at 09/14/2024 2:40 PM RIFLE CASE REPAIRER ----- Uric acid is normal NEYDA Ramos, 09/14/2024 2:40 PM E CASE REPAIRER documented in this encounter Plan of Treatment Upcoming Encounters Date Type Department Care Team (Late st Contact Info) Description 06/25/2025 1:00 PM RIFLE CASE REPAIRER [facility] [place] [address] [phone] Oralia Elliott FNP [address] [facility] [address] [place] [address] 06/25/2025 2:00 PM RIFLE CASE REPAIRER Appointment [facility] Ultrasound [place] [address] [phone] Lima Perez, CONSTANZA [address] [place] [address] 06/25/2025 2:45 PM RIFLE CASE REPAIRER Appointment [facility] CT Scan [place] [address] [facility] 60 [place] [address] Lima Perez, CONSTANZA [address] [place] [address] 07/04/2025 1:40 PM RIFLE CASE REPAIRER Office Visit [facility] Orthopedics [place] [address] [place] [address] Byron Rubi PA-C [address] [place] [address] 07/10/2025 1:00 PM RIFLE CASE REPAIRER Office Visit [facility] [address] [place] [address] Berlin Summers PA [address] [place] [address] 08/08/2025 3:30 PM RIFLE CASE REPAIRER Office Visit [facility] Douglas Aguayo [address] [place] [address] Nanda Mg NP [address] [place] [address] 08/27/2025 2:20 PM RIFLE CASE REPAIRER Telephone Check Up [facility] Neurosurgery [address] [place] [address] [place] [address] Martínez Han MD [address] [place] [address] 11/07/2025 2:40 PM CDT Office Visit [facility] Family Medicine [place] [address] [address] Nir Paulson MD [address] [address] 11/13/2025 2:30 PM CDT Office Visit [facility] [address] [place] [address] Alfred Tracy MD [address] [place] [address] 01/15/2026 8:45 AM CDT Office Visit [facility] Neurology - [place] [address] [place] [address] Martínez Han MD [address] [place] [address] Yaneth Bass MD [address] [place] [address] documented as of this encounter Visit Diagnoses Not on filedocumented in this encounter Additional Health Concerns Infection Onset Date Last Indicated Resolved Time R/O Respiratory 06/19/2025 06/20/2025 06/20/2025 6 :41 PM CDT Parainfluenza 06/20/2025 06/20/2025 documented as of this encounter Care Teams Splicing Technician Relationship Specialty Start Date End Date Nir Paulson MD [address] [facility] [place] [phone] PCP - General Family Practice 10/13/21 documented as of this encounter
--- OUTSIDE RECORDS SUMMARY | 2025-06-24 15:51 | XMS_ITS | Encounter Summary ---
Author Organization [facility] Address [address] [place] [address] Care Team Providers Care Hotel Baggage Handler Name Role Phone Veronica Carvajal MD Primary Care Provider Encounter Details Date Type Department Care Team (Latest Contact Info) Description 04/10/2002 Outpatient Historical HIS [facility] Nir Soto MD [address] [place] [address] TENSION HEADACHE (Primary Dx) Social History Tobacco Use Types Packs/Day Years Used Date Smoking Tobacco: Never Assessed Comments Unknown Sex and Gender Information Value Date Recorded Sex Assigned at Not on file 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 QUARTER LINING SMOOTHER Gender Identity Not on file Sexual Orientation Not on file documented as of this encounter Plan of Treatment Not on file documented as of this encounter Visit Diagnoses Diagnosis Tension headache- Primary documented in this encounter Care Teams Hotel Baggage Handler Relationship Specialty Start Date End Date Veronica Carvajal MD [address] [address] PCP - General Family Practice 11/20/20 documented as of this encounter
--- OUTSIDE RECORDS SUMMARY | 2025-06-24 15:51 | XMS_ITS | Encounter Summary ---
Author Organization [facility] Address [address] [place] [address] Care Team Providers Care Scout Name Role Phone Veronica Carvajal MD Primary Care Provider Encounter Details Date Type Department Care Team (Latest Contact Info) Description 02/14/2001 Outpatient Historical HIS [facility] Nir Soto MD [address] [place] [phone] Headache(784.0) (Primary Dx) Social History Tobacco Use Types Packs/Day Years Used Date Smoking Tobacco: Never Assessed Comments Unknown Sex and Gender Information Value Date Recorded Sex Assigned at Not on file 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 QUALITY REP Gender Identity Not on file Sexual Orientation Not on file documented as of this encounter Plan of Treatment Not on file documented as of this encounter Visit Diagnoses Diagnosis Headache(784.0)- Primary Headache documented in this encounter Care Teams Scout Relationship Specialty Start Date End Date Veronica Carvajal MD [address] [facility] 60 [place] [address] PCP - General Family Practice 11/20/20 documented as of this encounter
--- OUTSIDE RECORDS SUMMARY | 2025-06-24 15:51 | XMS_ITS | Encounter Summary ---
Author Organization [facility] Address [address] [place] [address] Care Team Providers Care Cat Scan Tech Name Role Phone Veronica Carvajal MD Primary Care Provider [phone] Reason for Referral * Radiology Services (Routine) - Closed Specialty Diagnoses / Procedures Referred By Contac t Referred To Contact Radiology Diagnoses Abnormal mammogram Procedures MAMMO DIAGNOSTIC BILATERAL W OR WO CAD Nir Paulson MD [address] [address] Phone: tel: fax: [facility] [address] [address] Phone: tel: fax: Referral ID Status Reason Start Date Expiration Date V isits Requested Visits Authorized [id number] Closed F [facility] TO SCHEDULE (SGF) 08/03/2018 09/03/2019 1 1 ARIST Encounter Details Date Type Department Care Team (Late st Contact Info) Description 08/03/2018 Ancillary Orders [facility] Pre-Registration [place] CALL TO MAKE APPOINTMENT ONLY [address] [place] [address] Nir Paulson MD [address] [address] Abnormal mammogram Social History Tobacco Use Types Packs/Day Years Used Date Smoking Tobacco: Former Cigarettes 0.5 12 0 02/02/1984 - 02/02/1996 Smokeless Tobacco: Never Alcohol Use Standard Drinks/Week Comments No 0 (1 standard drink = 0.6 oz pur e alcohol) Comments No Sex and Gender Information Value Date Recorded Sex Assigned at Not on file 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 OCULARIST Gender Identity Not on file Sexual Orientation [...] W OR WO CAD (10/18/2018 3:42 PM OCULARIST) Anatomical Region Laterality Modality Breast Bilateral Mammography 10/18/2018 3:42 PM OCULARIST Impressions 10/20/2018 5:59 AM OCULARIST : No mammographic evidence of malignancy. Stable postbiopsy changes of the left breast. Recommend returning to bilateral annual screening mammography in one year. The patient was given verbal and written results/recommendations. BI-RADS ASSESSMENT: 2 - Benign RECOMMENDATION: Bilateral annual screening mammography [id number] Narrative 10/20/2018 5:59 AM OCULARIST EXAM: MAMMO DIAGNOSTIC BILATERAL W OR WO [...] unspecified documented in this encounter Care Teams Cat Scan Tech Relationship Specialty Start Date End Date Veronica Carvajal MD [address] [phone] PCP - General Family Practice 11/20/20 documented as of this encounter
--- OUTSIDE RECORDS SUMMARY | 2025-06-24 15:51 | XMS_ITS | Encounter Summary ---
Author Organization [facility] Address [address] [place] [address] Care Team Providers Care Changer Fixer Name Role Phone Veronica Carvajal MD Primary Care Provider [phone] Encounter Details Date Type Department Care Team (Latest Contact Info) Description 05/15/1999 Outpatient Historical HIS [facility] Nir Soto MD [address] [place] [address] Other diseases of trachea and bronchus, not elsewhere classified (Primary Dx); Acute upper respiratory infections of unspecified site Social History Tobacco Use Types Packs/Day Years Used Date Smoking Tobacco: Never Assessed Comments Unknown Sex and Gender Information Value Date Recorded Sex Assigned at Not on file 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 MACHINED PARTS QUALITY INSPECTOR Gender Identity Not on file Sexual Orientation Not on file documented as of this encounter Plan of Treatment Not on file documented as of this encounter Visit Diagnoses Diagnosis Other diseases of trachea and bronchus, not elsewhere classified- Primary Acute upper respiratory infections of unspecified site documented in this encounter Care Teams Changer Fixer Relationship Specialty Start Date End Date Veronica Carvajal MD [address] [facility] [address] [place] [address] PCP - General Family Practice 11/20/20 documented as of this encounter
--- OUTSIDE RECORDS SUMMARY | 2025-06-24 15:51 | XMS_ITS | Encounter Summary ---
Author Organization [facility] Address [address] [place] [address] Care Team Providers Care Crook Operator Name Role Phone Veronica Carvajal MD Primary Care Provider [phone] Encounter Details Date Type Department Care Team ([facility] st Contact Info) Description 12/17/2017 Ancillary Orders [facility] Pre-Registration [place] CALL TO MAKE APPOINTMENT ONLY [address] [place] [address] Tom Steen Jr., MD [address] [facility] 3 [place] [address] Abnormal mammogram Social History Tobacco Use Types Packs/Day Years Used Date Smoking Tobacco: Former Cigarettes 0.5 12 0 02/02/1984 - 02/02/1996 Smokeless Tobacco: Never Alcohol Use Standard Drinks/Week Comments No 0 (1 standard drink = 0.6 oz pur e alcohol) Comments No Sex and Gender Information Value Date Recorded Sex Assigned at Not on file 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 TONGER Gender Identity Not on file Sexual Orientation [...] unspecified documented in this encounter Care Teams Crook Operator Relationship Specialty Start Date End Date Veronica Carvajal MD [address] [address] PCP - General Family Practice 11/20/20 documented as of this encounter
--- OUTSIDE RECORDS SUMMARY | 2025-06-24 15:51 | XMS_ITS | Encounter Summary ---
Author Organization [facility] Address [address] [place] [address] Care Team Providers Care Antique Repairer Name Role Phone Nir Paulson MD Primary Care Provider [phone] Encounter Details Date Type Department Care Team (Latest Contact Info) Description 04/18/2025 Results Follow-Up [facility] Family Medicine [place] [address] [address] Marnie Burns, [facility] [address] [address] COMPREHENSIVE METABOLIC PANEL, CBC WITH [...] about transportation for future doctor visits, order picker/assembler medication, etc.? No 2024 Housing Stability Answer [...] on file Legal Sex Female 3:40 AM SITE MEDICAL DIRECTOR Gender Identity Not on file Sexual Orientation Not on file documented as of this encounter Plan of Treatment Upcoming Encounters Date Type Department Care Team (Late st Contact Info) Description 06/25/2025 1:00 PM SITE MEDICAL DIRECTOR [facility]ment [facility] [place] [address] [address] Oralia Elliott, TUBING MACHINE OPERATOR [address] [address] 06/25/2025 2:00 PM SITE MEDICAL DIRECTOR Appointment [facility] Ultrasound [place] [address] [address] Lima Perez NP [address] [place] [address] 06/25/2025 2:45 PM SITE MEDICAL DIRECTOR Appointment [facility] CT Scan [facility] [address] [address] Lima Perez NP [address] [place] [address] 07/04/2025 1:40 PM SITE MEDICAL DIRECTOR Office Visit [facility] Orthopedics [place] [address] [facility] [address] [place] [address] Byron Rubi PA-C [address] [place] [address] 07/10/2025 1:00 PM SITE MEDICAL DIRECTOR Office Visit [facility] [address] [place] [address] [place] Summers PA [address] [place] [address] 08/08/2025 3:30 PM SITE MEDICAL DIRECTOR Office Visit [facility] Douglas Zheng Olivier [address] [place] [address] Nanda Mg NP [address] [place] [address] 08/27/2025 2:20 PM SITE MEDICAL DIRECTOR Telephone Check Up [facility] Neurosurgery [address] [place] [address] [place] [address] Martínez Han MD [address] [place] [address] 11/07/2025 2:40 PM CDT Office Visit [facility] Family Medicine [place] [address] [address] Nir Paulson MD [address] [address] 11/13/2025 2:30 PM CDT Office Visit [facility] Endocrinology [facility] [address] [place] [address] Alfred Tracy MD [address] [place] [address] 01/15/2026 8:45 AM CDT Office Visit [facility] Neurology - [place] [address] [place] [address] Martínez Han MD [address] [place] [address] Yaenth Bass MD [address] [facility] [address] [place] [address] documented as of this encounter Visit Diagnoses Not on filedocumented in this encounter Care Teams Antique Repairer Relationship Specialty Start Date End Date Nir Paulson MD [address] [place] [phone] PCP - General Family Practice 10/13/21 documented as of this encounter
--- OUTSIDE RECORDS SUMMARY | 2025-06-24 15:51 | XMS_ITS | Encounter Summary ---
Author Organization [facility] Address [address] [place] [address] Care Team Providers Care Melt Superintendant Name Role Phone Nir Paulson MD Primary Care Provider [phone] Encounter Details Date Type Department Care Team (Latest Contact Info) Description 05/17/2025 Results Follow-Up [facility] Endocrinology [facility] [address] [place] [address] Alfred Tracy MD [address] [place] [address] TSH, VITAMIN D 25 HYDROXY, [...] on file Legal Sex Female 3:40 AM WRAPPER LAYER Gender Identity Not on file Sexual Orientation [...] st Contact Info) Description 06/25/2025 1:00 PM WRAPPER LAYER [facility] [place] [address] [address] Oralia Elliott, BED MANAGER [address] [facility] [address] [place] [address] 06/25/2025 2:00 PM WRAPPER LAYER Appointment [facility] Ultrasound [place] [address] [address] Lima Perez NP [address] [place] [address] 06/25/2025 2:45 PM WRAPPER LAYER Appointment [facility] CT Scan [place] [address] [address] Lmia Perez NP [address] [place] [address] 07/04/2025 1:40 PM WRAPPER LAYER Office Visit [facility] Orthopedics [place] [address] [place] [address] Byron Rubi PA-C [address] [place] [address] 07/10/2025 1:00 PM WRAPPER LAYER Office Visit [facility] [address] [place] [address] [place] Summers PA [address] [place] [address] 08/08/2025 3:30 PM WRAPPER LAYER Office Visit [facility] Douglas Zheng [place] [address] [place] [address] Haritha Nandapat Tello, CONSTANZA [address] [place] [address] 08/27/2025 2:20 PM WRAPPER LAYER Telephone Check Up [facility] Neurosurgery [address] [place] [address] [place] [address] Martínez Han MD [address] [place] [address] 11/07/2025 2:40 PM CDT Office Visit [facility] Family Medicine [address] [address] Nir Paulson MD [address] [address] 11/13/2025 2:30 PM CDT Office Visit [facility] [address] [place] [address] Alfred Tracy MD [address] [place] [address] 01/15/2026 8:45 AM CDT Office Visit [facility] Neurology - [place] [address] [place] [address] Martínez Han MD [address] [place] [place] [address] Yaneth Bass MD [address] [place] [address] documented as of this encounter Visit Diagnoses Not on filedocumented in this encounter Additional Health Concerns Infection Onset Date Last Indicated Resolved Time R/O Respiratory 06/19/2025 06/20/2025 06/20/2025 6 :41 PM CDT Parainfluenza 06/20/2025 06/20/2025 documented as of this encounter Care Teams Melt Superintendant Relationship Specialty Start Date End Date Nir Paulson MD [address] [place] [address] PCP - General Family Practice 10/13/21 documented as of this encounter
--- OUTSIDE RECORDS SUMMARY | 2025-06-24 15:51 | XMS_ITS | Encounter Summary ---
Author Organization [facility] Address [address] [place] [address] Care Team Providers Care Manager Hospital Name Role Phone Veronica Carvajal MD Primary Care Provider [phone] Encounter Details Date Type Department Care Team (Latest Contact Info) Description 10/09/2002 Outpatient Historical [facility] Nir Soto MD [address] [place] [address] CHEST PAIN NOS (Primary Dx); SOMATIC DYSFUNCTION NEC Social History Tobacco Use Types Packs/Day Years Used Date Smoking Tobacco: Never Assessed Comments Unknown Sex and Gender Information Value Date Recorded Sex Assigned at Not on file 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 SUB ACUTE CARE NURSE Gender Identity Not on file Sexual Orientation Not on file documented as of this encounter Plan of Treatment Not on file documented as of this encounter Visit Diagnoses Diagnosis Chest pain, unspecified- Primary Nonallopathic lesion of abdomen and other sites, not elsewhere classified documented in this encounter Care Teams Manager Hospital Relationship Specialty Start Date End Date Veronica Carvajal MD [address] [facility] [address] [place] [address] PCP - General Family Practice 11/20/20 documented as of this encounter
--- OUTSIDE RECORDS SUMMARY | 2025-06-24 15:51 | XMS_ITS | Encounter Summary ---
Author Organization [facility] Address [address] [place] [address] Care Team Providers Care Underwear Finisher Name Role Phone Veronica Carvajal MD Primary Care Provider [phone] Encounter Details Date Type Department Care Team (Latest Contact Info) Description 07/04/1999 Outpatient Historical [facility] Nir Soto MD [address] [place] [address] Foreign body in unspecified site on external eye (Primary Dx) Social History Tobacco Use Types Packs/Day Years Used Date Smoking Tobacco: Never Assessed Comments Unknown Sex and Gender Information Value Date Recorded Sex Assigned at Not on file 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 DIRECTOR SYSTEMS Gender Identity Not on file Sexual Orientation Not on file documented as of this encounter Plan of Treatment Not on file documented as of this encounter Visit Diagnoses Diagnosis Foreign body in unspecified site on external eye- Primary documented in this encounter Care Teams Underwear Finisher Relationship Specialty Start Date End Date Veronica Carvajal MD [address] [facility] [address] [place] [address] PCP - General Family Practice 11/20/20 documented as of this encounter
--- OUTSIDE RECORDS SUMMARY | 2025-06-24 15:51 | XMS_ITS | Encounter Summary ---
Author Organization [facility] Address [address] [place] [address] Care Team Providers Care Regulatory Law Specialist Name Role Phone Veronica Carvajal MD Primary Care Provider [phone] Reason for Referral * Outpatient Services (Routine) - Closed Specialty Diagnoses / Procedures Referred By Contac t Referred To Contact Radiology Diagnoses Abnormal mammogram Procedures MAMMO DIAGNOSTIC UNI LEFT W OR WO CAD MAMMO DIAGNOSTIC UNI LEFT W OR WO CAD Nir Paulson MD [address] [address] Phone: tel: fax: [facility] [address] [facility] [address] [place] [address] Phone: tel: fax: Referral ID Status Reason Start Date Expiration Date V isits Requested Visits Authorized [id number] Closed SGF [facility] TO SCHEDULE (SGF) 12/17/2017 01/17/2019 1 1 Encounter Details Date Type Department Care Team (Late st Contact Info) Description 02/10/2018 Ancillary Orders [facility] [address] [facility] [address] [place] [address] Nir Paulson MD [address] [address] Abnormal mammogram Social History Tobacco Use Types Packs/Day Years Used Date Smoking Tobacco: Former Cigarettes 0.5 12 0 02/02/1984 - 02/02/1996 Smokeless Tobacco: Never Alcohol Use Standard Drinks/Week Comments No 0 (1 standard drink = 0.6 oz pur e alcohol) Comments No Sex and Gender Information Value Date Recorded Sex Assigned at Not on file 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 The patient is status [...] RECOMMENDATIONS: Bilateral diagnostic mammogram in 6 months. [id number] Procedure Note Natanael Salazar MD - 02/10/2018 MAMMO DIAGNOSTIC UNI LEFT W OR WO CAD INDICATION FOR EXAMINATION: Abnormal mammogram COMPARISONS: Mammogram dated 05/24/2017, 05/31/2017, 06/02/2017. Ultrasound dated 06/02/2017, 05/31/2017. BREAST COMPOSITION: Heterogeneously dense which may obscure small masses. FINDINGS: This digital mammogram was also analyzed by the Computer Aided Detection System (CAD), Solmentumer, Version 8.3. The patient is status post [...] RECOMMENDATIONS: Bilateral diagnostic mammogram in 6 months. [id number] Nir Paulson MD MAMMO ORDERABLES Final Re sult documented in this encounter Visit Diagnoses Diagnosis Abnormal mammogram Abnormal mammogram, unspecified Abnormal mammogram Abnormal mammogram, unspecified documented in this encounter Care Teams Regulatory Law Specialist Relationship Specialty Start Date End Date Veronica Carvajal MD [address] [address] PCP - General Family Practice 11/20/20 documented as of this encounter
--- OUTSIDE RECORDS SUMMARY | 2025-06-24 15:51 | XMS_ITS | Encounter Summary ---
Author Organization [facility] Address [address] [place] [address] Care Team Providers Care Political Researcher Name Role Phone Veronica Carvajal MD Primary Care Provider [phone] Encounter Details Date Type Department Care Team (Latest Contact Info) Description 04/04/2001 Outpatient Historical [facility] Nir Soto MD [address] [place] [phone] Unspecified asthma(493.90) (Primary Dx); Nausea alone; state, incidental Social History Tobacco Use Types Packs/Day Years Used Date Smoking Tobacco: Never Assessed Comments Unknown Sex and Gender Information Value Date Recorded Sex Assigned at Not on file 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
--- OUTSIDE RECORDS SUMMARY | 2025-06-24 15:51 | XMS_ITS | Encounter Summary ---
Author Organization [facility] Address [address] [place] [address] Care Team Providers Care Buffing Wheel Raker Name Role Phone Veronica Carvajal MD Primary Care Provider Encounter Details Date Type Department Care Team (Latest Contact Info) Description 11/05/2000 Outpatient Historical HIS [facility] Nir Soto MD [address] [place] [phone] Headache(784.0) (Primary Dx); Depressive disorder, not elsewhere classified Social History Tobacco Use Types Packs/Day Years Used Date Smoking Tobacco: Never Assessed Comments Unknown Sex and Gender Information Value Date Recorded Sex Assigned at Not on file 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
--- OUTSIDE RECORDS SUMMARY | 2025-06-24 15:51 | XMS_ITS | Encounter Summary ---
Author Organization [facility] Address [address] [place] [address] Care Team Providers Care Weight Clerk Name Role Phone Veronica Carvajal MD Primary Care Provider [phone] Reason for Referral * Outpatient Services (Routine) - Closed Specialty Diagnoses / Procedures Referred By Contac t Referred To Contact Diagnoses Inconclusive mammography Procedures MAMMO BREAST US LEFT LTD Tom Steen Jr., MD Phone: tel: fax: [facility] Pre-Registration [place] CALL TO MAKE APPOINTMENT ONLY [address] [place] [address] Phone: tel: fax: Referral ID Status Reason Start Date Expiration Date Visits Re quested Visits Authorized [id number] Closed 05/25/2017 06/25/2018 1 1 * Outpatient Services (Routine) - Closed Specialty Diagnoses / Procedures Referred By Contac t Referred To Contact Diagnoses Inconclusive mammography Procedures MAMMO DIAG UNI LEFT 3D SANDRA W OR WO CAD Tom Steen Jr., MD Phone: tel: fax: [facility] Pre-Registration [place] CALL TO MAKE APPOINTMENT ONLY [address] [place] [address] Phone: tel: fax: Referral ID Status Reason Start Date Expiration Date Visits Re quested Visits Authorized [id number] Closed 05/25/2017 06/25/2018 1 1 Encounter Details Date Type Department Care Team (Latest Contact Info) Description 05/25/2017 Ancillary Orders [facility] Breast Center [address] [place] [address] Tom Steen Jr., MD [address] [place] [address] Inconclusive mammography Social History Tobacco Use Types Packs/Day Years Used Date Smoking Tobacco: Former Cigarettes 0.5 12 0 02/02/1984 - 02/02/1996 Smokeless Tobacco: Never Alcohol Use Standard Drinks/Week Comments No 0 (1 standard drink = 0.6 oz pur e alcohol) Comments No Sex and Gender Information Value Date Recorded Sex Assigned at Not on file 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 Patient received a result/recommendation letter. [id number] Procedure Note Natanael aSlazar MD - 06/01/2017 MAMMO DIAG UNI LEFT [...] breast biopsy. Patient received a result/recommendation letter. [id number] us Tom Steen Jr., MD MAMMO ORDERABLES [...] breast biopsy. Patient received a result/recommendation letter. [id number] Procedure Note Natanael Salazar MD - 06/01/2017 [...] breast biopsy. Patient received a result/recommendation letter. [id number] Tom Steen Jr., MD MAMMO ORDERABLES Jodie l Result documented in this encounter Visit Diagnoses Diagnosis Inconclusive mammography Inconclusive mammogram Inconclusive mammography Inconclusive mammogram Inconclusive mammography Inconclusive mammogram documented in this encounter Care Teams Weight Clerk Relationship Specialty Start Date End Date Veronica Carvajal MD [address] [address] PCP - General Family Practice 11/20/20 documented as of this encounter
--- OUTSIDE RECORDS SUMMARY | 2025-06-24 15:51 | XMS_ITS | Clinical Summary ---
Author Organization [facility] Address [address] [facility] Attn: Epic [place] [address] Care Team Providers Care Collar Trimmer Name Role Phone Nir Paulson MD Primary Care Provider [phone] Allergies Active Allergy Reactions Criticality Noted Date [...] daily. Active fluticasone propionate (FLONASE) 50 mcg/spray Flushing, Suspension nasal inhaler SHAKE LIQUID AND USE [...] 750 mg tabletIndicati ons:Seronegati ve rheumatoid arthritis ([facility]) Take 1-2 Tablets (750-1,500 mg) by mouth [...] CapsuleIndicat ions:Severe obesity (BMI 35.0-39.9) with comorbidity ([facility]) TAKE 1 CAPSULE BY MOUTH EVERY DAY [...] H/O chronic inflammatory arthritis 05/29/2015 Fibromyalgia 05/29/2015 long term (current) use of systemic steroids Resolved Problems [...] Type Department Care Team Description 06/22/[address] [phone] Nir Paulson MD Provider Call 06/21/[address] [phone] Nir Paulson MD Provider Call 06/21/2025 Results Follow-Up [address] [address] Nir Paulson MD RESPIRATORY PATHOGEN PCR PANEL, XR CHEST PA AND LATERAL 2 VW 06/19/2025 2:40 PM CDT - 06/19/2025 11:59 PM CDT Hospital Encounter [facility] [address] [phone] Nir Paulson MD Discharge Disposition: Home or Self Care 06/19/2025 1:20 PM CDT Office Visit [address] [phone] Nir Paulson MD Productive cough (Primary Dx); Severe persistent asthma with acute exacerbation (CMS/HCC); MCFP (current) use of systemic steroids; CVID (common variable immunodeficiency) 06/19/[address] [address] Nir Paulson MD Provider Call 06/18/2025 3:00 PM CDT Office Visit [facility] [address] [place] [address] [place] [address] Martínez Han MD Myelopathy (Primary Dx) 06/11/2025 Refill [facility] [address] [place] [address] Alrfed Tracy MD 06/07/2025 3:20 PM CDT Office Visit [address] [phone] Byron Rubi PA-C Bilateral foot pain (Primary Dx); Left knee injury, initial encounter; Nondisplaced fracture of fourth metatarsal bone, left foot, initial encounter for closed fracture; Closed nondisplaced fracture of fifth metatarsal bone of left foot, initial encounter 06/07/2025 2:40 PM CDT Ancillary Procedure [address] [phone] Byron Rubi PA-C Bilateral foot pain 06/07/2025 2:35 PM CDT Ancillary Procedure [address] [phone] Byron Rubi PA-C Left knee injury, initial encounter 06/07/2025 Results Follow-Up [address] [phone] Oralia Elliott FNP CBC WITH DIFFERENTIAL, BASIC METABOLIC PANEL 06/06/2025 11:00 AM CDT Office Visit [address] [phone] Earl, Crystal Yoly, BOLTER HELPER Closed fracture of multiple ribs of left side with routine healing, subsequent encounter (Primary Dx); MCFP (current) use of systemic steroids; Osteopenia of multiple sites; Localized swelling of both lower legs; Bilateral edema of lower extremity; Serum calcium elevated; Alkaline phosphatase elevation 06/06/[address] [phone] Nir Paulson MD Benign hypertension; Seronegative rheumatoid arthritis ([facility]) 06/05/2025 External Device Data STL ABSTRACTION Provider, Abstract 06/05/2025 External Device Data STL ABSTRACTION Provider, Abstract 06/05/2025 External Device Data STL ABSTRACTION Provider, Abstract 06/02/2025 Results Follow-Up [facility] Emergency Medicine [address] [place] [address] Adriana Kauffman APRN URINE CULTURE 06/01/2025 10:12 AM CDT - 06/01/2025 12:30 PM CDT Emergency [facility][note 3] Medicine [address] [place] [phone] Closed fracture of multiple ribs of left side, initial encounter (Primary Dx) Discharge Disposition: Home or Self Care 06/01/2025 Travel 05/30/2025 Results Follow-Up [address] [phone] Lima Perez, MANAGER FINE DINING BRAIN NATRIURETIC PEPTIDE, BNP OR PROBNP, COMPREHENSIVE METABOLIC PANEL, C-REACTIVE PROTEIN, CBC WITH DIFFERENTIAL 05/30/2025 Results Follow-Up [address] [phone] Lima Perez NP XR CHEST PA AND LATERAL 2 VW 05/30/[address] [phone] Nir Paulson MD Remote Monitoring 05/29/2025 4:27 PM CDT - 05/29/2025 11:59 PM CDT Hospital Encounter [facility] [address] [facility] [address] [place] [phone] Chris, Lima, MANAGER FINE DINING Discharge Disposition: Home or Self Care 05/29/2025 4:25 PM CDT - 05/29/2025 11:59 PM CDT Hospital Encounter [facility] [place] [address] [facility] [address] [place] [address] Chris, Lima, MANAGER FINE DINING Chest pain, unspecified Discharge Disposition: Home or Self Care 05/29/2025 4:00 PM CDT Office Visit [address] [place] [phone] Chris, Lima, MANAGER FINE DINING Rib pain on left side (Primary Dx); Left-sided chest pain; Bilateral lower extremity edema 05/29/2025 Lab Requisition [facility] Services [place] 100 [facility] [address] [place] [phone] [place], Lima, MANAGER FINE DINING Chest pain, unspecified; Localized edema 05/25/2025 Telephone [facility] [address] [place] [address] Berlin Summers PA Advice Only 05/23/[address] [place] [address] Nir Paulson MD Nausea 05/22/2025 External Device Data STL ABSTRACTION Provider, Abstract 05/18/2025 2:30 PM CDT Office Visit [facility] [address] [place] [address] Berlin Summers PA CVID (common variable immunodeficiency) (CMS/HCC) (Primary Dx); Moderate persistent asthma without complication; Allergic rhinitis due to fungal spores, unspecified seasonality 05/17/2025 Results Follow-Up [facility] [address] [place] [address] Alfred Tracy MD TSH, VITAMIN D 25 HYDROXY, HEMOGLOBIN A1C 05/16/2025 2:30 PM CDT Office Visit [facility] [address] [place] [address] Alfred Tracy MD Controlled type 2 diabetes mellitus without complication, without long-term current use of insulin ([facility]) (Primary Dx); Hypovitaminosis D; Class 1 obesity with serious comorbidity and body mass index (BMI) of 31.0 to 31.9 in adult, unspecified obesity type 05/16/2025 Results Follow-Up [address] [phone] Oralia Elliott FNP URINE CULTURE 05/10/2025 4:00 PM CDT Office Visit [address] [phone] Oralia Elliott FNP Infection due to salmonella (Primary Dx); Encounter for routine adult health examination with abnormal findings; Yeast infection; Upper respiratory tract infection, unspecified type; Controlled type 2 diabetes mellitus without complication, without long-term current use of insulin ([facility]) 05/07/[address] [phone] Nir Paulson MD Chronic migraine without aura, intractable, without status migrainosus 05/02/[address] [phone] Corie Das, BOLTER HELPER Nausea 04/30/2025 Results Follow-Up [address] [phone] Marnie Burns FNP XR CHEST PA AND LATERAL 2 VW 04/27/2025 3:15 PM CDT - 04/27/2025 11:59 PM CDT Hospital Encounter [facility] [address] [phone] Oralia Elliott FNP Discharge Disposition: Home or Self Care 04/27/2025 2:20 PM CDT Office Visit [address] [phone] Oralia Elliott FNP Upper respiratory tract infection, unspecified type (Primary Dx); Skin ulcer of toe of left foot, limited to breakdown of skin (CMS/HCC) 04/19/2025 3:40 PM CDT - 04/19/2025 11:59 PM CDT Hospital Encounter [facility] [place] [address] [place] [phone] Oralia Elliott FNP Discharge Disposition: Home or Self Care 04/18/2025 Results Follow-Up [address] [phone] Marnie Burns FNP COMPREHENSIVE METABOLIC PANEL, CBC WITH DIFFERENTIAL 04/17/2025 2:00 PM CDT Office Visit [address] [phone] Marnie Burns FNP Skin ulcer of toe of left foot, limited to breakdown of skin (CMS/HCC) (Primary Dx); Edema leg 04/11/[address] [facility] [place] [phone] Corie Das FNP Nausea 04/10/2025 External Device Data STL ABSTRACTION Provider, Abstract 04/03/[address] [phone] Oralia Elliott FNP Information 04/02/[address] [phone] Oralia Elliott FNP Acute cystitis without hematuria (Primary Dx) 03/30/2025 Results Follow-Up [address] [place] [phone] Earl Oralia Francon, BOLTER HELPER XR FOOT 3+ VW LEFT, POC URINALYSIS DIPSTICK AUTOMATED, BASIC METABOLIC PANEL, Additional followed-up results: 2 03/29/2025 3:37 PM CDT - 03/29/2025 11:59 PM CDT Hospital Encounter [facility] [address] [place] [phone] Earl, Crystal Yoly, BOLTER HELPER Discharge Disposition: Home or Self Care 03/29/2025 2:40 PM CDT Office Visit [facility] [address] [phone] Earl, Crystal Yoly, BOLTER HELPER Dysuria (Primary Dx); Benign hypertension; Bilateral edema of lower extremity; Chronic bilateral low back pain with bilateral sciatica; Spondylolisthesis of lumbar region; Lumbosacral spondylosis without myelopathy; S/P lumbar fusion; Skin ulcer of toe of left foot, limited to breakdown of skin ([facility]) 03/28/2025 External Device Data STL ABSTRACTION Provider, Abstract 03/27/[address] [phone] Corie Das FNP Benign hypertension from Last [...] worry about transportation for future doctor visits, roller picker medication, etc.? No 2024 Housing Stability [...] on file Legal Sex Female 3:40 AM LANGUAGE INSTRUCTOR Gender Identity Not on file Sexual Orientation [...] st Contact Info) Description 06/25/2025 1:00 PM LANGUAGE INSTRUCTOR Appointment [facility] Services [place] [address] [phone] Oralia Elliott, BOLTER HELPER [address] [phone] 06/25/2025 2:00 PM LANGUAGE INSTRUCTOR Appointment [facility] Ultrasound [place] [address] [address] Lima Perez, CONSTANZA [address] [place] [address] 06/25/2025 2:45 PM LANGUAGE INSTRUCTOR Appointment [facility] CT Scan [place] [address] [address] Lima Perez, CONSTANZA [address] [place] [phone] 07/04/2025 1:40 PM LANGUAGE INSTRUCTOR Office Visit [facility] [place] [address] [facility] [address] [place] [address] Byron Rubi PA-C [address] [place] [address] 07/10/2025 1:00 PM LANGUAGE INSTRUCTOR Office Visit [facility] [address] [place] [address] Berlin Summers PA [address] [place] [address] 08/08/2025 3:30 PM LANGUAGE INSTRUCTOR Office Visit [facility] [place] [address] [place] [address] Nanda Mg NP [address] [place] [address] 08/27/2025 2:20 PM LANGUAGE INSTRUCTOR Telephone Check Up [facility] [address] [place] [address] [place] [address] Martínez Han MD [address] [place] [address] 11/07/2025 2:40 PM CDT Office Visit [facility] [address] [phone] Nir Paulson MD [address] [address] 11/13/2025 2:30 PM CDT Office Visit [facility] [address] [place] [address] Alfred Tracy MD [address] [place] [address] 01/15/2026 8:45 AM CDT Office Visit [facility] [place] [address] [place] [address] Martínez Han MD [address] [place] [address] Yaneth Bass MD [address] [place] [address] Health Maintenance Due Date Last [...] history exists Medical Devices Implanted Type Area Tank Worker Device Identifier Shelf Expiration Date Model / Serial / Lot Tightrope Btb Acl [id number] - Sn/A Implanted:Qty: 1 on 06/13/2014 by Onel Ross MD Marvell Right: Knee [employer] 02/19/2019 [id number] / N/A / [id number] Mesh Ventralight St 4x6in [id number] - Sna Implanted:Qty: 1 on 09/28/2018 by Andre Law MD Mesh N/A: Abdomen CR [employer]ARD[employer] 01/18/2020 [id number] / NA / [id number] Description:Soaked in Ropiva cristian 0.5% 100mg/20mL. Lot [id number], exp 02/11 Screw Biocomp Intrfrnc 9x35mm [id number] - [id number] Implanted:Qty: 1 on 06/13/2014 by Onel Ross MD Screw Right: Knee [employer] 03/22/2015 [id number] / / [id number] Procedures Procedure Name Priority Date/Time Associated Diagnosis [...] complication, without long-term current use of insulin ([facility]) VITAMIN D 25 HYDROXY Routine 05/16/2025 3:07 PM CDT Controlled type 2 diabetes mellitus without complication, without long-term current use of insulin ([facility]) Hypovitaminosis D TSH Routine 05/16/2025 3:07 PM CDT Controlled type 2 diabetes mellitus without complication, without long-term current use of insulin ([facility]) Hypovitaminosis D MICROALBUMIN/CREATINI NE RATIO, RANDOM UR Routine 05/11/2025 8:38 AM CDT Controlled type 2 diabetes mellitus without complication, without long-term current use of insulin ([facility]) URINE CULTURE Routine 05/11/2025 8:38 AM CDT [...] DIABETES EYE EXAM Routine 07/18/2024 12:39 PM LANGUAGE INSTRUCTOR MAMMO 3D SANDRA SCREEN BILAT W OR WO CAD Routine 06/14/2024 3:45 PM CDT Breast cancer screening by mammogram LIPID PANEL Routine 01/04/2024 11:41 AM CDT Controlled type 2 diabetes mellitus without complication, without long-term current use of insulin ([facility]) from Last 3 Months or Most Recently Relevant to Health Maintenance Results * (ABNORMAL) RESPIRATORY PATHOGEN PCR PANEL (06/20/2025 2:11 PM CDT) COVID-19 PCR NOT DETECTED Not Detected 06/20/2025 6:41 PM CDT [facility] Parainfluenza 2 by PCR DETECTED(A) Not Detected 06/20/2025 6:41 PM CDT [facility] Upper Respiratory ENTIRE NASOPHARYNX / Unknown Collection / Unknown 06/20/2025 2:11 PM CDT 06/20/2025 4:43 PM CDT Narrative [facility] - 06/20/2025 6:41 PM CDT The Film [...] MICROBIOLOGY - GENERAL OR DERABLES Final Result [facility] CLIA # [id number] [address] [place] [address] * XR CHEST PA AND LATERAL 2 [...] [facility] Comment: Test Performed at: [facility] [address] [facility] [place] [address] Tanvir Monetro MD Blood 06/06/2025 11:3 9 AM CDT 06/07/2025 3:04 AM CDT Oralia Elliott BOLTER HELPER HEMATOLOGY ORDERABLES Fi nal Result [facility] [phone] [facility] [address] [place] [address] * (ABNORMAL) COMPREHENSIVE METABOLIC PANEL (06/06/2025 11:39 AM CDT) Only the most recent of4 resultswithin the time period is included. GLUCOSE 257(H) 65 - 99 mg/dL [facility] Comment: Fasting reference interval For someone [...] [facility] Comment: Test Performed at: [facility] [place] [address] Tanvir Montero MD Blood 06/06/2025 11:3 9 AM CDT 06/07/2025 3:04 AM CDT us Lima Perez NP CHEMISTRY ORDERABLES Final Res ult [facility] [phone] [facility] [address] [place] [address] * (ABNORMAL) BASIC METABOLIC PANEL (06/06/2025 11:39 AM CDT) Only the most recent of2 resultswithin the time period is included. GLUCOSE 254(H) 65 - 99 mg/dL [facility] Comment: Fasting reference interval For someone [...] [facility] Comment: Test Performed at: [facility] [address] [place] [address] Tanvir Montero MD Blood 06/06/2025 11:3 9 AM CDT 06/07/2025 3:04 AM CDT us Oralia Elliott BOLTER HELPER CHEMISTRY ORDERABLES Fin al Result Performing Organization Address City/State/[facility] Co de Phone Number [facility] [phone] [facility] [address] [place] [address] * CT CHEST W CONTRAST (06/01/2025 11:42 [...] compression fractures are incidentally noted. Procedure Note Leno Aviles MD - 06/01/2025 Exam: CT CHEST [...] to Dark Yellow 06/01/2025 10:48 AM T [facility] CLARITY UA Clear Clear 06/01/2025 10:48 AM CDT [facility] SPECIFIC GRAVITY UA 1.015 1.003 - 1.035 06/01/2025 10:48 AM [facility] PH UA 7.5 5.0 - 8.0 06/01/2025 10:48 AM [facility] LEUKOCYTE ESTERASE UA Negative Negative 06/01/2025 10:48 AM T [facility] NITRITE UA Negative Negative 06/01/2025 10:48 AM [facility] PROTEIN UA Trace(A) Negative 06/01/2025 10:48 AM CDT [facility] GLUCOSE UA 2+(A) Negative 06/01/2025 10:48 AM CDT [facility] KETONES UA Negative Negative 06/01/2025 10:48 AM CDT [facility] UROBILINOGEN UA 0.2 <2.0 mg/dL 10:48 AM CDT [facility] BILIRUBIN UA Negative Negative 06/01/2025 10:48 AM CDT [facility] BLOOD UA Negative Negative 06/01/2025 10:48 AM CDT [facility] Urine URINE SPECIMEN OBTAINED BY CLEAN CATCH PROCEDURE / Unknown Collection / Unknown 06/01/2025 10:37 AM CDT 06/01/2025 10:44 AM CDT Adriana Kauffman APRN URINE ORDERABLES Final Result Performing Organization Address City/[facility]/ZIP Co de Phone Number [facility] CLIA # [id number] [address] [place] [address] * URINE CULTURE (06/01/2025 10:37 AM CDT) Only the most recent of3 resultswithin the time period is included. CULTURE Polymicrobial growth consistent with normal urethral lala and/or colonizing bacteria 06/02/2025 12:31 PM CDT [facility] Urine URINE SPECIMEN OBTAINED BY CLEAN CATCH PROCEDURE / Unknown Collection / Unknown 06/01/2025 10:37 AM CDT 06/01/2025 10:44 AM CDT Adriana Kauffman APRN MICROBIOLOGY - GENERAL ORDERABLES Final Result [facility] CLIA # [id number] [address] [place] [address] * (ABNORMAL) BRAIN NATRIURETIC PEPTIDE, BNP OR PROBNP (06/01/2025 10:37 AM CDT) Only the most recent of2 resultswithin the time period is included. PROBNP, N TERMINAL 230(H) 0 - 125 pg/mL 06/01/2025 11:02 AM CDT [facility] Comment: INTERPRETIVE COMMENT based on [...] ORDERABLES Fi nal Result Performing Organization Address [facility] Co de Phone Number [facility] CLIA # [id number] [address] [place] [phone] * (ABNORMAL) C-REACTIVE PROTEIN (05/29/2025 4:35 PM CDT) CRP 7.7(H) <5.0 mg/L 05/29/2025 4:54 PM CDT [facility] Blood BLOOD SPECIMEN / Unknown Collection / Unknown 05/29/2025 4:35 PM CDT 05/29/2025 4:38 PM CDT us Lima Perez MANAGER FINE DINING CHEMISTRY ORDERABLES Final Res ult Performing Organization Address [facility]/ZIP Co de Phone Number [facility] CLIA # [id number] [address] [place] [address] * (ABNORMAL) VITAMIN D 25 HYDROXY (05/16/2025 3:07 PM CDT) VITAMIN D, 25 OH, TOTAL 29(L) 30 - 100 ng/mL [facility] Comment: Vitamin D Status 25-OH Vitamin D: Deficiency: <20 ng/mL Insufficiency: 20 - 29 ng/mL Optimal: > or = 30 ng/mL For 25-OH Vitamin D testing on patients on D2-supplementation and patients for whom quantitation of D2 and D3 fractions is required, the [facility] 25-OH VIT D, (D2,D3), LC/MS/MS is recommended: order code 72547 (patients >2yrs). See Note 1 Note 1 For additional information, please refer to http://education.Tempered Mind/faq/HVS790 (This link is being provided for informational/ educational purposes only.) FASTING:NO FASTING: NO Test Performed at: [facility] [address] [place] [address] Tanvir Montero MD Blood 05/16/2025 3:07 PM CDT 05/16/2025 3:10 PM CDT us Alfred Tracy MD CHEMISTRY ORDERABLES Final Res ult Performing Organization Address City/[facility]/ZIP Co de Phone Number [facility] [phone] [facility] [address] [place] [address] * TSH (05/16/2025 3:07 PM CDT) Pathologist [facility] TSH 0.43 0.40 - 4.50 mIU/L [facility] Comment: Test Performed at: [facility] [address] [place] [address] Tanvir Montero MD Blood 05/16/2025 3:07 PM CDT 05/16/2025 3:10 PM CDT us Alfred Tracy MD CHEMISTRY ORDERABLES Final Res ult [facility] [phone] [address] * (ABNORMAL) HEMOGLOBIN A1C (05/16/2025 3:07 PM CDT) Pathologist [facility] HEMOGLOBIN A1C 6.5(H) <5.7 % [facility] Comment: For someone without known diabetes, [...] children. ESTIMATED AVERAGE GLUCOSE (MG/DL) 140 mg/dL [facility] ESTIMATED AVERAGE GLUCOSE (MMOL/L) 7.7 mmol/L [facility] Comment: FASTING:NO FASTING: NO Test Performed at: [facility] [address] Tanvir Montero MD Blood 05/16/2025 3:07 PM CDT 05/16/2025 3:10 PM CDT Alfred Tracy MD CHEMISTRY ORDERABLES Final Res ult [facility] [phone] [address] * MICROALBUMIN/CREATININE RATIO, RANDOM UR (05/11/2025 8:38 AM CDT) CREATININE, URINE 232 20 - 275 mg/dL [facility] ALBUMIN, URINE 1.8 See Note: mg/dL [...] within a diagnostic category. Test Performed at: [facility] [address] [facility] [place] [address] Tanvir Montero MD Urine URINE SPECIMEN OBTAINED BY CLEAN CATCH PROCEDURE / Unknown 05/11/2025 8:38 AM CDT 05/12/2025 3:12 AM CDT us Nir Paulson MD URINE ORDERABLES Final Re sult [facility] [phone] [facility] [address] [address] [facility] [place] [address] * MRI LUMBAR WO CONTRAST (04/19/2025 4:17 [...] to severe neuroforaminal narrowing. us Oralia Elliott BOLTER HELPER MR ORDERABLES Final Re sult * (ABNORMAL) POC URINALYSIS DIPSTICK AUTOMATED (03/29/2025 4:01 PM CDT) COLOR UA POC Dark Yellow Pale to Dark Yellow [facility] CLARITY UA POC Slightly Cloudy(A) Clear, Other [facility] GLUCOSE UA POC Negative Negative, Normal [facility] BILIRUBIN UA POC 1+(A) Negative [facility] KETONES UA POC Trace(A) Negative [facility] SPECIFIC GRAVITY UA POC >=1.030 1.000 - 1.030 [facility] BLOOD UA POC Trace(A) Negative [facility] LINIC [facility] PH UA POC 6.0 5.0 - 8.0 [facility] IC [facility] PROTEIN UA POC 2+(A) Negative [facility] UROBILINOGEN UA POC 0.2 <2.0 mg/dL [facility] NITRITE UA POC Negative Negative [facility] LEUKOCYTE ESTERASE UA POC Negative Negative [facility] KIT LOT NUMBER POC [phone] [facility] KIT EXP DATE POC 03/22/2026 [facility] Urine 03/29/2025 4:01 PM CDT Oralia Frederick Earl BOLTER HELPER POINT OF CARE TESTING Fi nal Result [facility] CLIA# [id number] [address] [place] [address] * XR FOOT 3+ VW LEFT (03/29/2025 [...] ulcer is not well visualized. Oralia Elliott BOLTER HELPER DIAGNOSTIC IMAGING ORDER JANESSA Final Result * DIABETES EYE EXAM (07/18/2024 12:39 PM LANGUAGE INSTRUCTOR) Abstract Provider HEALTH MAINTENANCE Edited Resu lt - Final * MAMMO 3D SANDRA SCREEN BILAT W OR WO CAD (06/14/2024 3:45 PM CDT) Anatomical Region Laterality Modality Breast Bilateral Mammography, Dig ital Radiography Impressions 06/25/2024 2:39 PM LANGUAGE INSTRUCTOR : No mammographic evidence of malignancy. BI-RADS ASSESSMENT: 1 - Negative RECOMMENDATION: Routine annual screening mammography. Narrative 06/25/2024 2:39 PM LANGUAGE INSTRUCTOR EXAM: MAMMO SCRN BILAT 3D SANDRA W [...] LDL-C. Dread SS et al. JOSEF. 2013;310(19): 2341-9395 (http://education.Tempered Mind/faq/UOA354) CHOL/HDL RATIO 2.8 <5.0 (calc) [facility] TOTAL NON-HDL CHOL(LDL+VLDL) 118 <130 mg/dL (calc) [facility] Comment: For patients with diabetes plus 1 major ASCVD risk factor, treating to a non-HDL-C goal of <100 mg/dL (LDL-C of <70 mg/dL) is considered a therapeutic option. Test Performed at: [facility] [address] [address] Tanvir Montero MD Blood 01/04/2024 11:4 1 AM CDT 01/05/2024 3:09 AM CDT Alfred Tracy MD CHEMISTRY ORDERABLES Final Res ult [facility] [phone] [facility] [address] [phone] from Last 3 Months or Most Recently Relevant to Health Maintenance Additional Health Concerns Infection Onset Date Last Indicated Parainfluenza 06/20/2025 06/20/2025 Insurance [facility] Medicaid [place] Care Teams Collar Trimmer Relationship Specialty Start Date End Date Nir Paulson MD [address] [place] [phone] PCP - General Family Practice 10/13/21
--- OUTSIDE RECORDS SUMMARY | 2025-06-24 15:51 | XMS_ITS | Encounter Summary ---
Author Organization [facility] Address [address] [place] [address] Care Team Providers Care Lacquer Sizer Name Role Phone Veronica Carvajal MD Primary Care Provider Encounter Details Date Type Department Care Team (Latest Contact Info) Description 06/15/2000 Outpatient Historical [facility] Nir Soto MD [address] [place] [address] Allergic rhinitis, cause unspecified (Primary Dx) Social History Tobacco Use Types Packs/Day Years Used Date Smoking Tobacco: Never Assessed Comments Unknown Sex and Gender Information Value Date Recorded Sex Assigned at Not on file 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 BLOCK PAVER Gender Identity Not on file Sexual Orientation Not on file documented as of this encounter Plan of Treatment Not on file documented as of this encounter Visit Diagnoses Diagnosis Allergic rhinitis, cause unspecified- Primary documented in this encounter Care Teams Lacquer Sizer Relationship Specialty Start Date End Date Veroncia Carvajal MD [address] [facility] [address] [place] [address] PCP - General Family Practice 11/20/20 documented as of this encounter
--- OUTSIDE RECORDS SUMMARY | 2025-06-24 15:51 | XMS_ITS | Encounter Summary ---
Author Organization [facility] Address [address] [place] [address] Care Team Providers Care Wood Buffer Name Role Phone Nir Paulson MD Primary Care Provider [phone] Encounter Details Date Type Department Care Team (Late st Contact Info) Description 06/02/2025 Results Follow-Up [facility] Emergency Medicine [address] [facility] 60 [place] [address] Adriana Kauffman, CATERING TRUCK OPERATOR [address] [facility] [address] [place] [address] URINE CULTURE Social History Tobacco [...] on file Legal Sex Female 3:40 AM SENIOR MAINFRAME DEVELOPER Gender Identity Not on file Sexual Orientation Not on file documented as of this encounter Plan of Treatment Upcoming Encounters Date Type Department Care Team (Late st Contact Info) Description 06/25/2025 1:00 PM SENIOR MAINFRAME DEVELOPER [facility] [place] [address] [address] Oralia Elliott, WIRE INSPECTOR [address] [facility] 60 [place] [address] 06/25/2025 2:00 PM SENIOR MAINFRAME DEVELOPER Appointment [facility] Ultrasound [place] [address] [address] Lima Perez NP [address] [place] [address] 06/25/2025 2:45 PM SENIOR MAINFRAME DEVELOPER Appointment [facility] CT Scan [place] [address] [address] Lima Peerz NP [address] [place] [address] 07/04/2025 1:40 PM SENIOR MAINFRAME DEVELOPER Office Visit [facility] Orthopedics [place] [address] [facility] [address] [place] [address] Byron Rubi PA-C [address] [place] [address] 07/10/2025 1:00 PM SENIOR MAINFRAME DEVELOPER Office Visit [facility] [address] [place] [address] Berlin Summers PA [address] [place] [address] 08/08/2025 3:30 PM SENIOR MAINFRAME DEVELOPER Office Visit [facility] Douglas Zheng Olivier [address] [place] [address] Nanda Mg NP [address] [place] [address] 08/27/2025 2:20 PM SENIOR MAINFRAME DEVELOPER Telephone Check Up [facility] Neurosurgery [address] [place] [address] Martínez Han MD [address] [place] [address] 11/07/2025 2:40 PM CDT Office Visit [facility] Family Medicine [place] [address] [address] Nir Paulson MD [address] [address] 11/13/2025 2:30 PM CDT Office Visit [facility] Endocrinology [facility] [address] [place] [address] Alfred Tracy MD [address] [place] [address] 01/15/2026 8:45 AM CDT Office Visit [facility] Neurology - [place] [address] [place] [address] Martínez Han MD [address] [place] [address] Yaneth Bass MD [address] [place] [address] documented as of this encounter Visit Diagnoses Not on filedocumented in this encounter Additional Health Concerns Infection Onset Date Last Indicated Resolved Time R/O Respiratory 06/19/2025 06/20/2025 06/20/2025 6 :41 PM CDT Parainfluenza 06/20/2025 06/20/2025 documented as of this encounter Care Teams Wood Buffer Relationship Specialty Start Date End Date Nir Paulson MD [address] [facility] [place] [address] PCP - General Family Practice 10/13/21 documented as of this encounter
--- OUTSIDE RECORDS SUMMARY | 2025-06-24 15:51 | XMS_ITS | Clinical Summary ---
[facility] Organization [facility] Address [address] [place] [address] Care Team Providers Care Web Content Manager Name Role Phone Veronica Carvajal MD [...] Comment) (when up and active). 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) use of systemic steroids Prediabetes 05/21/2015 [...] on file 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 LIEUTENANT/DEPUTY Gender Identity Not on file Sexual Orientation [...] 09/24/2030 09/24/2020 Medical Devices Implanted Type Area Web Marketing Assistant Device Identifier Shelf Expiration Date Model / Serial / Lot Tightrope Btb Acl [id number] - Sn/A Implanted:Qty: 1 on 06/13/2014 by Onel Ross MD at [facility] Right: Knee [employer] 02/19/2019 [id number] / N/A / [id number] Mesh Ventralight St 4x6in [id number] - Sna Implanted:Qty: 1 on 09/28/2018 by Andre Law MD at [facility] Mesh N/A: Abdomen CR [employer]ARD[employer] 01/18/2020 [id number] / NA / [id number] Description:Soaked in Ropiva cristian 0.5% 100mg/20mL. Lot [id number], exp 02/11 Screw Biocomp Intrfrnc 9x35mm [id number] - [id number] Implanted:Qty: 1 on 06/13/2014 by Onel Ross MD at [facility] Right: Knee [employer] 03/22/2015 [id number] / / [id number] Procedures Procedure Name Priority Date/Time Associated Diagnosis Comments HEMOGLOBIN A1C Routine 09/24/2020 10:42 AM LIEUTENANT/DEPUTY Type 2 diabetes mellitus without complication, without long-term current use of insulin ([facility]) MAMMO DIAGNOSTIC BILATERAL W OR WO CAD Routine 10/18/2018 3:42 PM LIEUTENANT/DEPUTY Abnormal mammogram LIPID PANEL Routine 07/20/2017 3:32 PM LIEUTENANT/DEPUTY Seronegative rheumatoid arthritis ([facility]) Essential hypertension Hypertriglyceridemi a from Last 3 Months or Most Recently Relevant to Health Maintenance Results * (ABNORMAL) HEMOGLOBIN A1C (09/24/2020 10:42 AM LIEUTENANT/DEPUTY) HEMOGLOBIN A1C 7.0(H) See Comment % 09/24/2020 9:03 PM LIEUTENANT/DEPUTY [facility] EST. AVG GLUCOSE, A1C 154 mg/dL 09/24/2020 9:03 PM LIEUTENANT/DEPUTY [facility] Blood Collection / Unknown 09/24/2020 10:42 AM LIEUTENANT/DEPUTY 09/24/2020 8:38 PM LIEUTENANT/DEPUTY Narrative [facility] - 09/24/2020 9:03 PM LIEUTENANT/DEPUTY HGB A1C INTERPRETATION NORMAL: <5.7% PRE-DIABETES: 5.7 - 6.4% DIABETES: 6.5% OR GREATER Falsely low A1C measurements can occur when: 1. Anemia and/or hemolytic anemia is present. 2. Hemoglobin variants present. 3. Renal failure. 4. Transfusion of blood product in the last 120 days. We recommend ordering a fructosamine test([id number]) to more accurately assess glycemic status if any of the above conditions are present. us [place] JOHN CHEMISTRY ORDERABLES Final Re sult [facility] CLIA# [id number] [address] [place] [address] * MAMMO DIAGNOSTIC BILATERAL W OR WO CAD (10/18/2018 3:42 PM LIEUTENANT/DEPUTY) Anatomical Region Laterality Modality Breast Bilateral Mammography 10/18/2018 3:42 PM LIEUTENANT/DEPUTY Impressions 10/20/2018 5:59 AM LIEUTENANT/DEPUTY : No mammographic evidence of malignancy. Stable postbiopsy changes of the left breast. Recommend returning to bilateral annual screening mammography in one year. The patient was given verbal and written results/recommendations. BI-RADS ASSESSMENT: 2 - Benign RECOMMENDATION: Bilateral annual screening mammography [id number] Narrative 10/20/2018 5:59 AM LIEUTENANT/DEPUTY EXAM: MAMMO DIAGNOSTIC BILATERAL W OR WO [...] * (ABNORMAL) LIPID PANEL (07/20/2017 3:32 PM LIEUTENANT/DEPUTY) CHOLESTEROL 235(H) <200 mg/dL 07/26/2017 8:[address] [facility] TRIGLYCERIDE 162(H) <150 mg/dL 07/26/2017 8:[address] [facility] HDL 62(H) 40 - 59 mg/dL 07/26/2017 8:[address] [facility] LDL CALCULATED 141(H) <100 mg/dL 07/26/2017 8:[address] [facility] NON-HDL CHOLESTEROL 173(H) <130 mg/dL 07/26/2017 8:[address] [facility] Blood Collection / Unknown 07/20/2017 3:32 PM LIEUTENANT/DEPUTY 07/26/2017 8:32 AM LIEUTENANT/DEPUTY [facility] - 07/26/2017 8:46 AM LIEUTENANT/DEPUTY TOTAL CHOLESTEROL mg/dL Desirable <200 Borderline high [...] Steen Jr., MD CHEMISTRY ORDERABLES Final Result [facility]STIE# [id number] [facility] [place] [id number] from Last 3 Months or Most Recently Relevant to Health Maintenance Insurance [place] RX INFOCROSSING Medicaid [place] Advance Directives For more information, please contact: [phone] * Full Code (Latest Code Status on [...] 2:52 PM 04/09/2017 11:59 PM Care Teams Web Content Manager Relationship Specialty Start Date End Date Veronica Carvajal MD [address] [phone] PCP - General Family Practice 11/20/20
--- OUTSIDE RECORDS SUMMARY | 2025-06-24 15:51 | XMS_ITS | Encounter Summary ---
Author Organization [facility] Address [address] [place] [address] Care Team Providers Care Student Admissions Clerk Name Role Phone Veronica Carvajal MD Primary Care Provider [phone] Encounter Details Date Type Department Care Team (Late st Contact Info) Description 09/22/2018 Ancillary Orders [facility] Pain Management [address] [place] [address] Shannen Harrison PA [address] [place] [address] Chronic bilateral low back pain [...] on file 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 PROGRAM SERVICES ASSISTANT Gender Identity Not on file Sexual [...] LUMBAR SPINE 4+ VW (09/22/2018 8:45 AM PROGRAM SERVICES ASSISTANT) Anatomical Region Laterality Modality Spine Computed Radiogr aphy 09/22/2018 8:45 AM PROGRAM SERVICES ASSISTANT Impressions 09/22/2018 3:42 PM PROGRAM SERVICES ASSISTANT IMPRESSION: Please see below. Exam: XR LUMBAR [...] flexion and extension. 2. Multilevel degenerative changes. [id number] Narrative Procedure Note Brayan Roman MD - [...] flexion and extension. 2. Multilevel degenerative changes. [id number] Shannen JOHN DIAGNOSTIC IMAGING ORDERABLES Final Result documented in this encounter Visit Diagnoses Diagnosis Chronic bilateral low back pain with bilateral sciatica Subluxation of L4-L5 lumbar vertebra, sequela Chronic bilateral low back pain with bilateral sciatica Subluxation of L4-L5 lumbar vertebra, sequela documented in this encounter Care Teams Student Admissions Clerk Relationship Specialty Start Date End Date Veronica Carvajal MD [address] [address] PCP - General Family Practice 11/20/20 documented as of this encounter
--- OUTSIDE RECORDS SUMMARY | 2025-06-24 15:51 | XMS_ITS | Encounter Summary ---
Author Organization [facility] Address [address] [place] [address] Care Team Providers Care Lens Blocker Name Role Phone Veronica Carvajal MD Primary Care Provider Encounter Details Date Type Department Care Team (Latest Contact Info) Description 05/11/2000 Outpatient Historical [facility] Nir Soto MD [address] [place] [address] Headache(784.0) (Primary Dx); Depressive disorder, not elsewhere classified Social History Tobacco Use Types Packs/Day Years Used Date Smoking Tobacco: Never Assessed Comments Unknown Sex and Gender Information Value Date Recorded Sex Assigned at Not on file 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 MORTGAGE PROCESSOR Gender Identity Not on file Sexual Orientation Not on file documented as of this encounter Plan of Treatment Not on file documented as of this encounter Visit Diagnoses Diagnosis Headache(784.0)- Primary Headache Depressive disorder, not elsewhere classified documented in this encounter Care Teams Lens Blocker Relationship Specialty Start Date End Date Veronica Carvajal MD [address] [facility] [address] [place] [address] PCP - General Family Practice 11/20/20 documented as of this encounter
--- OUTSIDE RECORDS SUMMARY | 2025-06-24 15:51 | XMS_ITS | Encounter Summary ---
Author Organization [facility] Address [address] [place] [address] Care Team Providers Care Lift Mechanic Name Role Phone Veronica Carvajal MD Primary Care Provider Encounter Details Date Type Department Care Team (Latest Contact Info) Description 04/13/2000 Outpatient Historical [facility] Nir Soto MD [address] [place] [address] Headache(784.0) (Primary Dx); Tension headache; Anxiety state, unspecified; Depressive disorder, not elsewhere classified Social History Tobacco Use Types Packs/Day Years Used Date Smoking Tobacco: Never Assessed Comments Unknown Sex and Gender Information Value Date Recorded Sex Assigned at Not on file 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 MAINTENANCE AIDE Gender Identity Not on file Sexual Orientation Not on file documented as of this encounter Plan of Treatment Not on file documented as of this encounter Visit Diagnoses Diagnosis Headache(784.0)- Primary Headache Tension headache Anxiety state, unspecified Depressive disorder, not elsewhere classified documented in this encounter Care Teams Lift Mechanic Relationship Specialty Start Date End Date Veronica Carvajal MD [address] [address] PCP - General Family Practice 11/20/20 documented as of this encounter
--- OUTSIDE RECORDS SUMMARY | 2025-06-24 15:51 | XMS_ITS | Encounter Summary ---
Author Organization [facility] Address [address] [place] [address] Care Team Providers Care Franchise Field Consultant Name Role Phone Nir Paulson MD Primary Care Provider [phone] Reason for Visit * Reason Comments Provider Call Encounter Details Date Type Department Care Team (Late st Contact Info) Description 06/19/2025 Telephone [facility] Family Medicine [address] [address] Nir Paulson MD [address] [address] Provider Call Social History Tobacco [...] have difficulty payin g for utility costs ([employer] water or gas bills)? No 06/01/2025 Medication [...] on file Legal Sex Female 3:40 AM CHILD DEVELOPMENT ASSISTANT Gender Identity Not on file Sexual Orientation Not on file documented as of this encounter Miscellaneous Notes * Telephone Encounter - Arianna Serrato LPN - 06/19/2025 4:58 PM CDT Faxed again. Arianna Serrato LPN, 06/19/2025 4:58 PM * Telephone Encounter - Aneta Guerrero - 06/19/2025 4:23 PM [address]T [address]ied from [facility] #[id number]. Topic: [id number] Call >> Jun 19, 2025 4:21 PM Aneta Reeves wrote: Caller is requesting to speak with Clinical Care Team. Caller Name: [employer] [facility] [employer]. Callback Number: Ph [phone] Fax [phone] Is the caller a Physician, Nurse Practitioner or Physician Twisting Frame Changer? No Call Notes: Please refax the nebulizer order to [facility]. They didn't get it. Is this addressing an immediate patient care need? No documented in this encounter Plan of Treatment Upcoming Encounters Date Type Department Care Team (Late st Contact Info) Description 06/25/2025 1:00 PM CHILD DEVELOPMENT ASSISTANT Appointment Lacie [facility] [address] [phone] EarlOralia echeverria, FLORICULTURE TEACHER [address] [address] 06/25/2025 2:00 PM CHILD DEVELOPMENT ASSISTANT Appointment [facility] Ultrasound [place] [address] [place] [address] Lima Perez, DEER FARMER [address] [place] [address] 06/25/2025 2:45 PM CHILD DEVELOPMENT ASSISTANT Appointment [facility] CT Scan [place] [address] [place] [address] Lima Perez, CONSTANZA [address] [place] [address] 07/04/2025 1:40 PM CHILD DEVELOPMENT ASSISTANT Office Visit [facility] Orthopedics [place] [address] [place] [address] Byron Rubi PA-C [address] [place] [address] 07/10/2025 1:00 PM CHILD DEVELOPMENT ASSISTANT Office Visit [facility] [address] [place] [address] Berlin Summers PA [address] [place] [address] 08/08/2025 3:30 PM CHILD DEVELOPMENT ASSISTANT Office Visit [facility] Douglas Zheng [place] [address] [place] [address] Nanda Mg NP [address] [place] [address] 08/27/2025 2:20 PM CHILD DEVELOPMENT ASSISTANT Telephone Check Up [facility] Neurosurgery [address] [place] [address] [place] [address] Martínez Han MD [address] [place] [address] 11/07/2025 2:40 PM CDT Office Visit [facility] Medicine [place] [address] [place] [address] Nir Paulson MD [address] [place] [address] 11/13/2025 2:30 PM CDT Office Visit [facility] [address] [place] [address] Alfred Tracy MD [address] [place] [address] 01/15/2026 8:45 AM CDT Office Visit [facility] Neurology - [place] [address] [place] [address] Martínez Han MD [address] [place] [address] Yaneth Bass MD [address] [place] [address] documented as of this encounter Visit Diagnoses Not on filedocumented in this encounter Additional Health Concerns Infection Onset Date Last Indicated Resolved Time R/O Respiratory 06/19/2025 06/20/2025 06/20/2025 6 :41 PM CDT documented as of this encounter Care Teams Franchise Field Consultant Relationship Specialty Start Date End Date Nir Paulson MD [address] [place] [address] PCP - General Family Practice 10/13/21 documented as of this encounter
--- OUTSIDE RECORDS SUMMARY | 2025-06-24 15:51 | XMS_ITS | Encounter Summary ---
Author Organization [facility] Address [address] [place] [address] Care Team Providers Care Principal Database Developer Name Role Phone Nir Paulson MD Primary Care Provider +1 [phone] Encounter Details Date Type Department Care Team ([facility] Contact Info) Description 11/02/2024 Lab Requisition [facility] Laboratory Services [place] [address] [facility] [address] [place] [phone] EarlOralia echeverria, REFERRAL AGENT [address] [address] Cramp and spasm; Spontaneous ecchymoses [...] on file Legal Sex Female 3:40 AM APPLICATIONS DEVELOPMENT ANALYST Gender Identity Not on file Sexual Orientation Not on file documented as of this encounter Plan of Treatment Upcoming Encounters Date Type Department Care Team ([facility] Contact Info) Description 06/25/2025 1:00 PM APPLICATIONS DEVELOPMENT ANALYST Appointment [facility] [address] [facility] [address] [place] [address] EarlOralia, REFERRAL AGENT [address] [facility] 60 [place] [address] 06/25/2025 2:00 PM APPLICATIONS DEVELOPMENT ANALYST Appointment [facility] Ultrasound [place] [address] [place] [address] Lima Perez, CONSTANZA [address] [place] [address] 06/25/2025 2:45 PM APPLICATIONS DEVELOPMENT ANALYST Appointment [facility] CT Scan [place] [address] [place] [address] Lima Perez, CONSTANZA [address] [place] [address] 07/04/2025 1:40 PM APPLICATIONS DEVELOPMENT ANALYST Office Visit [facility] Orthopedics [place] [address] [place] [address] Byron Rubi PA-C [address] [place] [address] 07/10/2025 1:00 PM APPLICATIONS DEVELOPMENT ANALYST Office Visit [facility] [address] [place] [address] Berlin Summers PA [address] [place] [address] 08/08/2025 3:30 PM APPLICATIONS DEVELOPMENT ANALYST Office Visit [facility] Douglas Norm [place] [address] [place] [address] Nanda Mg NP [address] [place] [address] 08/27/2025 2:20 PM APPLICATIONS DEVELOPMENT ANALYST Telephone Check Up [facility] Neurosurgery [address] [place] [address] [place] [address] Martínez Han MD [address] [place] [address] 11/07/2025 2:40 PM CDT Office Visit [facility] Family Medicine [place] [address] [place] [address] Nir Paulson MD [address] [place] [address] 11/13/2025 2:30 PM CDT Office Visit [facility] Endocrinology [facility] [address] [place] [address] Alfred Tracy MD [address] [place] [address] 01/15/2026 8:45 AM CDT Office Visit [facility] Neurology - [place] [address] [place] [address] Martínez Han MD [address] [place] [address] Yaneth Bass MD [address] [place] [address] documented as of this encounter [...] - 192 U/L 11/02/2024 3:59 PM CDT [facility] Blood BLOOD SPECIMEN / Unknown Collection / Unknown 11/02/2024 3:30 PM CDT 11/02/2024 3:37 PM CDT us [employer] [facility] CHEMISTRY ORDERABLES Fin al Result Performing Organization Address City/[facility]/ZIP Co de Phone Number [facility] CLIA # [id number] [address] [place] [address] * MAGNESIUM LEVEL (11/02/2024 3:30 PM CDT) Pathologist [facility] MAGNESIUM 2.2 1.6 - 2.6 mg/dL 11/02/2024 3:59 PM CDT [facility] Blood BLOOD SPECIMEN / Unknown Collection / Unknown 11/02/2024 3:30 PM CDT 11/02/2024 3:37 PM CDT us Adociapps REFERRAL AGENT CHEMISTRY ORDERABLES Fin al Result [facility] CLIA # [id number] [address] [place] [address] * (ABNORMAL) COMPREHENSIVE METABOLIC PANEL (11/02/2024 3:30 PM CDT) SODIUM 136 136 - 145 mmol/L 11/02/2024 3:59 PM CDT [facility] POTASSIUM 4.6 3.5 - 5.1 mmol/L 11/02/2024 3:59 PM [facility] CHLORIDE 97(L) 98 - 107 mmol/L 11/02/2024 3:59 PM [facility] CO2 28 22 - 29 mmol/L 11/02/2024 3:59 PM [facility] CALCIUM 9.6 8.6 - 10.0 mg/dL 11/02/2024 3:59 PM [facility] BUN 19 6 - 20 mg/dL 11/02/2024 3:59 PM [facility] CREATININE 0.84 0.51 - 0.95 mg/dL 11/02/2024 3:59 PM [facility] GLUCOSE 181(H) 74 - 99 mg/dL 11/02/2024 3:59 PM [facility] TOTAL PROTEIN 7.0 6.6 - 8.7 g/dL 11/02/2024 3:59 PM [facility] ALBUMIN 4.3 4.0 - 4.9 g/dL 11/02/2024 3:59 PM [facility] BILIRUBIN TOTAL 0.3 <=1.2 mg/dL 11/02/2024 3:59 PM [facility] ALKALINE PHOSPHATASE 91 35 - 104 U/L 11/02/2024 3:59 PM [facility] AST 25 0 - 35 U/L 11/02/2024 3:59 PM [facility] ALT 29 0 - 35 U/L 11/02/2024 3:59 PM [facility] GFR >60 >=60 mL/min/1.7 3 sq meter 11/02/2024 3:59 PM [facility] Comment:eGFR calculated with 2020 CKD-EPI equation. Vegetarian diet, extremely high or low muscle mass, and may affect results. Cystatin C with Glomerular Filtration Rate is a suitable alternative for these patients. ANION GAP 11 5 - 20 mmol/L 11/02/2024 3:59 PM [facility] Blood BLOOD SPECIMEN / Unknown Collection / Unknown 11/02/2024 3:30 PM CDT 11/02/2024 3:37 PM CDT Oralia Elliott REFERRAL AGENT CHEMISTRY ORDERABLES Griffin garza Result [facility] CLIA # [id number] [address] [place] [address] * (ABNORMAL) CBC WITH DIFFERENTIAL (11/02/2024 3:30 PM CDT) Pathologist [facility] WBC 11.0(H) 4.0 - 10.0 K/uL 11/02/2024 3:41 PM CDT [facility] RBC 4.00 3.93 - 5.22 M/uL 11/02/2024 3:41 PM T [facility] HEMOGLOBIN 12.1 11.2 - 15.7 g/dL 11/02/2024 3:41 PM T [facility] HEMATOCRIT 36.8 34.1 - 44.9 % 11/02/2024 3:41 PM T [facility] MCV 92.0 79.4 - 94.8 fL 11/02/2024 3:41 PM T [facility] MCH 30.3 25.6 - 32.2 pg 11/02/2024 3:41 PM [facility] MCHC 32.9 32.2 - 35.5 g/dL 11/02/2024 3:41 PM T [facility] RDW 15.5(H) 11.0 - 14.5 % 11/02/2024 3:41 PM [facility] RDW-STDEV 52.7 36.9 - 56.9 fL 11/02/2024 3:41 PM [facility] PLATELETS 504(H) 163 - 337 K/uL 11/02/2024 3:41 PM [facility] MPV 8.6(L) 10.0 - 14.8 fL 11/02/2024 3:41 PM T [facility] NEUTROPHILS 76(H) 34 - 71 % 11/02/2024 3:41 PM T [facility] LYMPHOCYTES 16(L) 19 - 52 % 11/02/2024 3:41 PM T [facility] MONOCYTES 7 5 - 13 % 11/02/2024 3:41 PM [facility] EOSINOPHILS 0(L) 1 - 6 % 11/02/2024 3:41 PM [facility] BASOPHILS 1 0 - 1 % 11/02/2024 3:41 PM [facility] IMMATURE GRANULOCYTES 1 % 11/02/2024 3:41 PM [facility] NEUTROPHIL ABSOLUTE 8.33(H) 1.56 - 6.13 K/uL 11/02/2024 3:41 PM [facility] LYMPHOCYTE ABSOLUTE 1.75 1.20 - 3.40 K/uL 11/02/2024 3:41 PM T [facility] MONOCYTE ABSOLUTE 0.71(H) 0.24 - 0.36 K/uL 11/02/2024 3:41 PM T [facility] EOSINOPHIL ABSOLUTE 0.02(L) 0.04 - 0.36 K/uL 11/02/2024 3:41 PM [facility] BASOPHILS ABSOLUTE 0.09(H) 0.01 - 0.08 K/uL 11/02/2024 3:41 PM [facility] IMMATURE GRANULOCYTES ABSOLUTE 0.09 K/uL 11/02/2024 3:41 PM [facility] Blood BLOOD SPECIMEN / Unknown Collection / Unknown 11/02/2024 3:30 PM CDT 11/02/2024 3:37 PM CDT us Oralia Elliott REFERRAL AGENT HEMATOLOGY ORDERABLES Fi nal Result [facility] CLIA # [id number] [address] [place] [address] documented in this encounter Visit Diagnoses Diagnosis Cramp and spasm Spontaneous ecchymoses documented in this encounter Additional Health Concerns Infection Onset Date Last Indicated Resolved Time R/O Respiratory 06/19/2025 06/20/2025 06/20/2025 6 :41 PM CDT Parainfluenza 06/20/2025 06/20/2025 documented as of this encounter Care Teams Principal Database Developer Relationship Specialty Start Date End Date Nir Paulson MD [address] [facility] [place] [address] PCP - General Family Practice 10/13/21 documented as of this encounter
--- OUTSIDE RECORDS SUMMARY | 2025-06-24 15:51 | XMS_ITS | Encounter Summary ---
Author Organization [facility] Address [address] [place] [address] Care Team Providers Care Referral Nurse Name Role Phone Veronica Carvajal MD Primary Care Provider [phone]- [phone] Reason for Referral * Outpatient Services (Routine) - Closed Specialty Diagnoses / Procedures Referred By Contac t Referred To Contact Diagnoses Pain Procedures XR FLUORO LESS THAN 1 HOUR Salvador Baca MD [address] [address] Phone: tel: fax: Referral ID Status Reason Start Date Expiration Date Visits Re quested Visits Authorized [id number] Closed 03/18/2017 04/18/2018 1 1 Encounter Details Date Type Department Care Team (Late st Contact Info) Description 03/18/2017 Ancillary Orders [facility] Radiology [place] [address] [place] [address] Salvador Baca MD [address] [address] Pain Social History Tobacco Use Types Packs/Day Years Used Date Smoking Tobacco: Former Cigarettes 0.5 12 0 02/02/1984 - 02/02/1996 Smokeless Tobacco: Never Alcohol Use Standard Drinks/Week Comments No 0 (1 standard drink = 0.6 oz pur e alcohol) Comments No Sex and Gender Information Value Date Recorded Sex Assigned at Not on file 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 ROBOTICS SYSTEMS ENGINEER Gender Identity Not on file Sexual [...] pain documented in this encounter Care Teams Referral Nurse Relationship Specialty Start Date End Date Veronica Carvajal MD [address] [place] [address] PCP - General Family Practice 11/20/20 documented as of this encounter
--- OUTSIDE RECORDS SUMMARY | 2025-06-24 15:51 | XMS_ITS | Encounter Summary ---
Author Organization [facility] Address [address] [place] [address] Care Team Providers Care Spear Fisher Name Role Phone Nir Paulson MD Primary Care Provider +1 -[phone] Reason for Visit * Reason Comments Provider Call Encounter Details Date Type Department Care Team (Late st Contact Info) Description 06/21/[address] [facility] Family Medicine [address] [address] Nir Paulson MD [address] [address] Provider Call Social History Tobacco [...] worry about transportation for future doctor visits, pickling tank operator medication, etc.? No 2024 Housing Stability Answer Date Recorded Do you worry you won t have a steady place to sleep or struggle to pay rent or mortgage? No 06/01/2025 Utility Needs Answer Date Recorded Do you have difficulty payin g for utility costs ([place] water or gas bills)? No 06/01/2025 Medication [...] on file Legal Sex Female 3:40 AM SWATCH CUTTER Gender Identity Not on file Sexual Orientation Not on file documented as of this encounter Miscellaneous Notes * Telephone Encounter - Arianna Serrato LPN - 06/21/2025 1:48 PM CDT Approval via Medicaid. [facility] notified. Arianna Serrato LPN, 06/21/2025 1:49 PM * Telephone Encounter - Anant Stover - 06/21/2025 11:26 AM CDT Copied from [facility] #[id number]. Topic: [id number] Call >> Jun 21, 2025 11:25 AM Anant Chase wrote: Caller is requesting to speak with Clinical Care Team. Caller Name: Mariam phan/ [employer] (Other) Callback Number: [phone] Is the caller a Physician, Nurse Practitioner or Physician Journal Box Inspector? No Call Notes: Mariam states that an order for a nebulizer was received. They are needing a pre-cert started by care team in order to bill insurance. Is this addressing an immediate patient care need? No documented in this encounter Plan of Treatment Upcoming Encounters Date Type Department Care Team (Late st Contact Info) Description 06/25/2025 1:00 PM SWATCH CUTTER Appointment [facility] [employer] [facility] [address] [address] Oralia Elliott FNP [address] [facility] 60 [place] [address] 06/25/2025 2:00 PM SWATCH CUTTER Appointment [facility] Ultrasound [place] [address] [place] [address] Lima Perez, CONSTANZA [address] [place] [address] 06/25/2025 2:45 PM SWATCH CUTTER Appointment [facility] CT Scan [place] [address] [place] [address] Lima Perez NP [address] [place] [address] 07/04/2025 1:40 PM SWATCH CUTTER Office Visit [facility] Orthopedics [place] [address] [place] [address] Byron Rubi PA-C [address] [place] [address] 07/10/2025 1:00 PM SWATCH CUTTER Office Visit [facility] [address] [place] [address] Berlin Summers PA [address] [place] [address] 08/08/2025 3:30 PM SWATCH CUTTER Office Visit [facility] Douglas Zheng [place] [address] [place] [address] Nanda Mg NP [address] [place] [address] 08/27/2025 2:20 PM SWATCH CUTTER Telephone Check Up [facility] Neurosurgery [place] [address] [place] [address] Martínez Han MD [address] [place] [address] 11/07/2025 2:40 PM CDT Office Visit [facility] Medicine [place] [address] [address] Nir Paulson MD [address] [place] [address] 11/13/2025 2:30 PM CDT Office Visit [facility] [address] [place] [address] Alfred Tracy MD [address] [place] [address] 01/15/2026 8:45 AM CDT Office Visit [facility] Neurology - [place] [address] [place] [address] Martínez Han MD [address] [place] [address] Yaneth Bass MD [address] [place] [address] documented as of this encounter Visit Diagnoses Not on filedocumented in this encounter Additional Health Concerns Infection Onset Date Last Indicated Resolved Time Parainfluenza 06/20/2025 06/20/2025 documented as of this encounter Care Teams Spear Fisher Relationship Specialty Start Date End Date Nir Paulson MD [address] [facility] [place] [address] PCP - General Family Practice 10/13/21 documented as of this encounter
--- OUTSIDE RECORDS SUMMARY | 2025-06-24 15:51 | XMS_ITS | Encounter Summary ---
Author Organization [facility] Address [address] [place] [address] Care Team Providers Care Animal Nutrition Consultant Name Role Phone Veronica Carvajal MD Primary Care Provider Encounter Details Date Type Department Care Team (Late st Contact Info) Description 02/10/2018 Ancillary Orders [facility] [address] 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
--- OUTSIDE RECORDS SUMMARY | 2025-06-24 15:51 | XMS_ITS | Encounter Summary ---
Author Organization [facility] Address [address] [place] [address] Care Team Providers Care Shirt Bander Name Role Phone Veronica Carvjaal MD Primary Care Provider Encounter Details Date Type Department Care Team (Latest Contact Info) Description 05/28/2000 Outpatient Historical [facility] Nir Soto MD [address] [place] [address] Acute sinusitis, unspecified (Primary Dx); Acute bronchitis Social History Tobacco Use Types Packs/Day Years Used Date Smoking Tobacco: Never Assessed Comments Unknown Sex and Gender Information Value Date Recorded Sex Assigned at Not on file 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 MAPPING SPECIALIST Gender Identity Not on file Sexual Orientation Not on file documented as of this encounter Plan of Treatment Not on file documented as of this encounter Visit Diagnoses Diagnosis Acute sinusitis, unspecified- Primary Acute bronchitis documented in this encounter Care Teams Shirt Bander Relationship Specialty Start Date End Date Veronica Carvajal MD [address] [facility] [address] [place] [address] PCP - General Family Practice 11/20/20 documented as of this encounter
[2025-06-24] MEDS: pantoprazole 40 mg SDV IVP (17:34)
[2025-06-24] MEDS: morphine ER (12 HR) 30 mg tablet PO (17:34)
[2025-06-24 17:53] LABS: Troponin 5 6HR 31.52 ng/L (0-10)
[2025-06-24 17:58] LABS: Troponin 5 6HR Delta -18.48 ng/L (0-12)
[2025-06-24 18:00] LABS: Thyroid Stimulating Hormone 0.35 uIU/mL (0.27-4.20)
--- OUTSIDE RECORDS SUMMARY | 2025-06-24 19:40 | XMS_ITS | Encounter Summary ---
Author Organization [facility] Address [address] [place] [address] Care Team Providers Care Ground Control Approach Technician Name Role Phone Veronica Carvajal MD Primary Care Provider [phone]- [phone] Reason for Referral * Outpatient Services (Routine) - Closed Specialty Diagnoses / Procedures Referred By Contac t Referred To Contact Diagnoses Pain Procedures XR FLUORO LESS THAN 1 HOUR Salvador Baca MD [address] [address] Phone: tel: fax: Referral ID Status Reason Start Date Expiration Date Visits Re quested Visits Authorized [id number] Closed 03/18/2017 04/18/2018 1 1 Encounter Details Date Type Department Care Team (Late st Contact Info) Description 03/18/2017 Ancillary Orders [facility] Radiology [place] [address] [place] [address] Salvador Baca MD [address] [address] Pain Social History Tobacco Use Types Packs/Day Years Used Date Smoking Tobacco: Former Cigarettes 0.5 12 0 02/02/1984 - 02/02/1996 Smokeless Tobacco: Never Alcohol Use Standard Drinks/Week Comments No 0 (1 standard drink = 0.6 oz pur e alcohol) Comments No Sex and Gender Information Value Date Recorded Sex Assigned at Not on file 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 EXTRUDER TENDER Gender Identity Not on file Sexual Orientation [...] pain documented in this encounter Care Teams Ground Control Approach Technician Relationship Specialty Start Date End Date Veronica Carvajal MD [address] [place] [address] PCP - General Family Practice 11/20/20 documented as of this encounter
--- OUTSIDE RECORDS SUMMARY | 2025-06-24 19:40 | XMS_ITS | Encounter Summary ---
Author Organization [facility] Address [address] [place] [address] Care Team Providers Care Spa Technician Name Role Phone Nir Paulson MD Primary Care Provider +1 [phone] Encounter Details Date Type Department Care Team (Late st Contact Info) Description 06/02/2025 Results Follow-Up [facility] Emergency Medicine [address] [facility] [address] [place] [address] Adriana Kauffman, ELECTROCARDIOGRAPH REPAIRER [address] [facility] [address] [place] [address] URINE CULTURE Social History Tobacco [...] worry about transportation for future doctor visits, tile picker medication, etc.? No 2024 Housing Stability [...] on file Legal Sex Female 3:40 AM CARRIER BLOWER Gender Identity Not on file Sexual Orientation Not on file documented as of this encounter Plan of Treatment Upcoming Encounters Date Type Department Care Team (Late st Contact Info) Description 06/25/2025 1:00 PM CARRIER BLOWER [facility] [place] [address] [address] Oralia Elliott, INSURANCE CLAIMS SUPERVISOR [address] [facility] 60 [place] [address] 06/25/2025 2:00 PM CARRIER BLOWER Appointment [facility] Ultrasound [place] [address] [address] Lima Perez NP [address] [place] [address] 06/25/2025 2:45 PM CARRIER BLOWER Appointment [facility] CT Scan [place] [address] [address] Lima Perez NP [address] [place] [address] 07/04/2025 1:40 PM CARRIER BLOWER Office Visit [facility] Orthopedics [place] [address] [facility] [address] [place] [address] Byron Rubi PA-C [address] [place] [address] 07/10/2025 1:00 PM CARRIER BLOWER Office Visit [facility] [address] [place] [address] Berlin Summers PA [address] [place] [address] 08/08/2025 3:30 PM CARRIER BLOWER Office Visit [facility] Douglas Zheng [place] [address] [place] [address] Nanda Mg NP [address] [place] [address] 08/27/2025 2:20 PM CARRIER BLOWER Telephone Check Up [facility] Neurosurgery [address] [place] [address] [place] [address] Martínez Han MD [address] [place] [address] 11/07/2025 2:40 PM CDT Office Visit [facility] Family Medicine [place] [address] [address] Nir Paulson MD [address] [address] 11/13/2025 2:30 PM CDT Office Visit [facility] Endocrinology [facility] [address] [place] [address] Alfred Tracy MD [address] [place] [address] 01/15/2026 8:45 AM CDT Office Visit [facility] Neurology - [place] [address] [place] [address] Martínez Han MD [address] [place] [address] Yaneth Bass MD [address] [place] [address] documented as of this encounter Visit Diagnoses Not on filedocumented in this encounter Additional Health Concerns Infection Onset Date Last Indicated Resolved Time R/O Respiratory 06/19/2025 06/20/2025 06/20/2025 6 :41 PM CDT Parainfluenza 06/20/2025 06/20/2025 documented as of this encounter Care Teams Spa Technician Relationship Specialty Start Date End Date Nir Paulson MD [address] [facility] [place] [address] PCP - General Family Practice 10/13/21 documented as of this encounter
--- OUTSIDE RECORDS SUMMARY | 2025-06-24 19:40 | XMS_ITS | Encounter Summary ---
Author Organization [facility] Address [address] [place] [address] Care Team Providers Care Process Control Technician Name Role Phone Veronica Carvajal MD Primary Care Provider [phone] Reason for Referral * Outpatient Services (Routine) - Closed Specialty Diagnoses / Procedures Referred By Contac t Referred To Contact Diagnoses Inconclusive mammography Procedures MAMMO BREAST US LEFT LTD Tom Steen Jr., MD Phone: tel: fax: [facility] Pre-Registration [place] CALL TO MAKE APPOINTMENT ONLY [address] [place] [address] Phone: tel: fax: Referral ID Status Reason Start Date Expiration Date Visits Re quested Visits Authorized [id number] Closed 05/25/2017 06/25/2018 1 1 * Outpatient Services (Routine) - Closed Specialty Diagnoses / Procedures Referred By Contac t Referred To Contact Diagnoses Inconclusive mammography Procedures MAMMO DIAG UNI LEFT 3D SANDRA W OR WO CAD Tom Steen Jr., MD Phone: tel: fax: [facility] Pre-Registration [place] CALL TO MAKE APPOINTMENT ONLY [address] [place] [address] Phone: tel: fax: Referral ID Status Reason Start Date Expiration Date Visits Re quested Visits Authorized [id number] Closed 05/25/2017 06/25/2018 1 1 Encounter Details Date Type Department Care Team (Latest Contact Info) Description 05/25/2017 Ancillary Orders [facility] [address] [place] [phone] Tom Steen Jr., MD [address] [place] [address] Inconclusive mammography Social History Tobacco Use Types Packs/Day Years Used Date Smoking Tobacco: Former Cigarettes 0.5 12 0 02/02/1984 - 02/02/1996 Smokeless Tobacco: Never Alcohol Use Standard Drinks/Week Comments No 0 (1 standard drink = 0.6 oz pur e alcohol) Comments No Sex and Gender Information Value Date Recorded Sex Assigned at Not on file 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 Patient received a result/recommendation letter. [id number] Procedure Note Natanael Salazar MD - 06/01/2017 [...] breast biopsy. Patient received a result/recommendation letter. [id number] Tom Steen Jr., MD MAMMO ORDERABLES [...] breast biopsy. Patient received a result/recommendation letter. [id number] Procedure Note Natanael Salazar MD - 06/01/2017 [...] breast biopsy. Patient received a result/recommendation letter. [id number] Tom Steen Jr., MD MAMMO ORDERABLES Jodie l Result documented in this encounter Visit Diagnoses Diagnosis Inconclusive mammography Inconclusive mammogram Inconclusive mammography Inconclusive mammogram Inconclusive mammography Inconclusive mammogram documented in this encounter Care Teams Process Control Technician Relationship Specialty Start Date End Date Veronica Carvajal MD [address] [phone] PCP - General Family Practice 11/20/20 documented as of this encounter
--- OUTSIDE RECORDS SUMMARY | 2025-06-24 19:40 | XMS_ITS | Encounter Summary ---
Author Organization [facility] Address [address] [place] [address] Care Team Providers Care Assisted Living Executive Director Name Role Phone Nir Paulson MD Primary Care Provider [phone] Encounter Details Date Type Department Care Team (Late st Contact Info) Description 05/29/2025 Lab Requisition [facility] General Laboratory Services [place] [address] [place] [address] Lima Perez NP [address] [place] [address] Chest pain, unspecified; Localized edema [...] worry about transportation for future doctor visits, black pickler medication, etc.? No 2024 Housing Stability Answer Date Recorded Do you worry you won t have a steady place to sleep or struggle to pay rent or mortgage? No 06/01/2025 Utility Needs Answer Date Recorded Do you have difficulty payin g for utility costs ([place] water or gas bills)? No 06/01/2025 Medication [...] on file Legal Sex Female 3:40 AM DIET CONSULTANT Gender Identity Not on file Sexual Orientation Not on file documented as of this encounter Plan of Treatment Upcoming Encounters Date Type Department Care Team (Late st Contact Info) Description 06/25/2025 1:00 PM DIET CONSULTANT Appointment [facility] Generaling Services [place] [address] [address] Oralia Elliott, WAITER/WAITRESS FORMAL [address] [facility] [address] [place] [address] 06/25/2025 2:00 PM DIET CONSULTANT Appointment [facility] Ultrasound [place] [address] [address] Lima Perez NP [address] [place] [address] 06/25/2025 2:45 PM DIET CONSULTANT Appointment [facility] CT Scan [place] [address] [address] Lima Perez NP [address] [place] [phone] 07/04/2025 1:40 PM DIET CONSULTANT Office Visit [facility] Orthopedics [place] [address] [facility] [address] [place] [address] Byron Rubi PA-C [address] [place] [address] 07/10/2025 1:00 PM DIET CONSULTANT Office Visit [facility] [address] [place] [address] Berlin Summers PA [address] [place] [address] 08/08/2025 3:30 PM DIET CONSULTANT Office Visit [facility] Douglas Zheng Carnegie [address] [place] [address] Nanda Mg NP [address] [place] [address] 08/27/2025 2:20 PM DIET CONSULTANT Telephone Check Up [facility] Neurosurgery [address] [place] [address] Martínez Han MD [address] [place] [address] 11/07/2025 2:40 PM CDT Office Visit [facility] Family Medicine [place] [address] [address] Nir Paulson MD [address] [address] 11/13/2025 2:30 PM CDT Office Visit [facility] Endocrinology [facility] [address] [place] [address] Alfred Tracy MD [address] [place] [address] 01/15/2026 8:45 AM CDT Office Visit [facility] Neurology - [place] [address] [place] [address] Martínez Han MD [address] [place] [address] Yaneth Bass MD [address] [place] [address] documented as of this encounter [...] 4.0 - 10.0 K/uL 05/29/2025 4:[address] [facility] RBC 4.16 3.93 - 5.22 M/uL 05/29/2025 4:[address] [facility] HEMOGLOBIN 12.7 11.2 - 15.7 g/dL 05/29/2025 4:[address] [facility] HEMATOCRIT 37.8 34.1 - 44.9 % 05/29/2025 4:[address] [facility] MCV 90.9 79.4 - 94.8 fL 05/29/2025 4:[address] [facility] MCH 30.5 25.6 - 32.2 pg 05/29/2025 4:[address] [facility] MCHC 33.6 32.2 - 35.5 g/dL 05/29/2025 4:[address] [facility] RDW 13.3 11.0 - 14.5 % 05/29/2025 4:[address] [facility] RDW-STDEV 44.1 36.9 - 56.9 fL 05/29/2025 4:[address] [facility] PLATELETS 388(H) 163 - 337 K/uL 05/29/2025 4:[address] [facility] MPV 8.4(L) 10.0 - 14.8 fL 05/29/2025 4:[address] [facility] NEUTROPHILS 82(H) 34 - 71 % 05/29/2025 4:[address] [facility] LYMPHOCYTES 11(L) 19 - 52 % 05/29/2025 4:[address] [facility] MONOCYTES 5 5 - 13 % 05/29/2025 4:[address] [facility] EOSINOPHILS 0(L) 1 - 6 % 05/29/2025 4:[address] [facility] BASOPHILS 1 0 - 1 % 05/29/2025 4:[address] [facility] IMMATURE GRANULOCYTES 1 % 05/29/2025 4:[address] [facility] NEUTROPHIL ABSOLUTE 6.87(H) 1.56 - 6.13 K/uL 05/29/2025 4:[address] [facility] LYMPHOCYTE ABSOLUTE 0.92(L) 1.20 - 3.40 K/uL 05/29/2025 4:[address] [facility] MONOCYTE ABSOLUTE 0.45(H) 0.24 - 0.36 K/uL 05/29/2025 4:[address] [facility] EOSINOPHIL ABSOLUTE 0.00(L) 0.04 - 0.36 K/uL 05/29/2025 4:[address] [facility] BASOPHILS ABSOLUTE 0.04 0.01 - 0.08 K/uL 05/29/2025 4:[address] [facility] IMMATURE GRANULOCYTES ABSOLUTE 0.09 K/uL 05/29/2025 4:[address] [facility] Blood BLOOD SPECIMEN / Unknown Collection / Unknown 05/29/2025 4:35 PM CDT 05/29/2025 4:38 PM CDT us Lima Chris OPTIMIZATION MANAGER HEMATOLOGY ORDERABLES Final Re sult [facility] CLIA # [id number] [address] [place] [address] * (ABNORMAL) C-REACTIVE PROTEIN (05/29/2025 4:35 PM CDT) CRP 7.7(H) <5.0 mg/L 05/29/2025 4:54 PM CDT [facility] Blood BLOOD SPECIMEN / Unknown Collection / Unknown 05/29/2025 4:35 PM CDT 05/29/2025 4:38 PM CDT us Lima Cordova OPTIMIZATION MANAGER CHEMISTRY ORDERABLES Final Res ult [facility] CLIA # [id number] [address] [place] [address] * (ABNORMAL) COMPREHENSIVE METABOLIC PANEL (05/29/2025 4:35 PM CDT) SODIUM 140 136 - 145 mmol/L 05/29/2025 4:54 PM CDT [facility] POTASSIUM 4.2 3.5 - 5.1 mmol/L 05/29/2025 4:54 PM CDT [facility] CHLORIDE 100 98 - 107 mmol/L 05/29/2025 4:54 PM CDT [facility] CO2 25 22 - 29 mmol/L 05/29/2025 4:54 PM CDT [facility] CALCIUM 10.1(H) 8.6 - 10.0 mg/dL 05/29/2025 4:54 PM CDT [facility] BUN 16 6 - 20 mg/dL 05/29/2025 4:54 PM CDT [facility] CREATININE 0.81 0.51 - 0.95 mg/dL 05/29/2025 4:54 PM CDT [facility] GLUCOSE 153(H) 74 - 99 mg/dL 05/29/2025 4:54 PM T [facility] TOTAL PROTEIN 7.0 6.6 - 8.7 g/dL 05/29/2025 4:[address] [facility] ALBUMIN 4.3 3.5 - 5.2 g/dL 05/29/2025 4:[address] [facility] BILIRUBIN TOTAL 0.2 0.0 - 1.2 mg/dL 05/29/2025 4:[address] [facility] ALKALINE PHOSPHATASE 124(H) 35 - 104 U/L 05/29/2025 4:[address] [facility] AST 31 0 - 35 U/L 05/29/2025 4:[address] [facility] ALT 45(H) 0 - 35 U/L 05/29/2025 4:[address] [facility] GFR >60 >=60 mL/min/1.7 3 sq meter 05/29/2025 4:54 PM T [facility] Comment:eGFR calculated with 2020 CKD-EPI equation. Vegetarian diet, extremely high or low muscle mass, and may affect results. Cystatin C with Glomerular Filtration Rate is a suitable alternative for these patients. ANION GAP 15 5 - 20 mmol/L 05/29/2025 4:[address] [facility] Blood BLOOD SPECIMEN / Unknown Collection / Unknown 05/29/2025 4:35 PM CDT 05/29/2025 4:38 PM CDT us Lima Perez NP CHEMISTRY ORDERABLES Final Res ult [facility] CLIA # [id number] [address] [place] [address] * (ABNORMAL) BRAIN NATRIURETIC PEPTIDE, BNP OR PROBNP (05/29/2025 4:35 PM CDT) PROBNP, N TERMINAL 278(H) 0 - 125 pg/mL 05/29/2025 4:54 PM CDT [facility] Comment: INTERPRETIVE COMMENT based on [...] 05/29/2025 4:38 PM CDT us Lima Perez OPTIMIZATION MANAGER CHEMISTRY ORDERABLES Final Res ult [facility] CLIA # [id number] [address] [place] [address] documented in this encounter Visit Diagnoses Diagnosis Chest pain, unspecified Localized edema Edema documented in this encounter Additional Health Concerns Infection Onset Date Last Indicated Resolved Time R/O Respiratory 06/19/2025 06/20/2025 06/20/2025 6 :41 PM CDT Parainfluenza 06/20/2025 06/20/2025 documented as of this encounter Care Teams Assisted Living Executive Director Relationship Specialty Start Date End Date Nir Paulson MD [address] [facility] [place] [address] PCP - General Family Practice 10/13/21 documented as of this encounter
--- OUTSIDE RECORDS SUMMARY | 2025-06-24 19:40 | XMS_ITS | Encounter Summary ---
Author Organization [facility] Address [address] [place] [address] Care Team Providers Care Fisher Oyster Name Role Phone Nir Paulson MD Primary Care Provider [phone] Reason for Visit * Reason Onset Date Comments Results 09/14/2024 Encounter Details Date Type Department Care Team (Late st Contact Info) Description 09/14/2024 Results Follow-Up [facility] Family Medicine [place] [address] [address] Oralia Elliott, [facility] [address] [address] URIC ACID Social History Tobacco [...] on file Legal Sex Female 3:40 AM TECHNICIAN AUTOMATED EQUIPMENT Gender Identity Not on file Sexual Orientation Not on file documented as of this encounter Miscellaneous Notes * Telephone Encounter - Suri Palacios RN - 09/14/2024 2:48 PM TECHNICIAN AUTOMATED EQUIPMENT 09/14/2024 2:48 PM No answer. No voicemail or answering machine. Will continue to try to reach patient/caregiver. . Ifpatient/caregiver calls back, contact center please tell caller to review the information which canbe accessed via [facility] and call back with any questions. Suri RN NICIAN AUTOMATED EQUIPMENT * Telephone Encounter - Suri Palacios RN - 09/14/2024 2:48 PM TECHNICIAN AUTOMATED EQUIPMENT ----- Message from Oralia Elliott sent at 09/14/2024 2:40 PM TECHNICIAN AUTOMATED EQUIPMENT ----- Uric acid is normal NEYDA Ramos, 09/14/2024 2:40 PM NICIAN AUTOMATED EQUIPMENT documented in this encounter Plan of Treatment Upcoming Encounters Date Type Department Care Team (Late st Contact Info) Description 06/25/2025 1:00 PM TECHNICIAN AUTOMATED EQUIPMENT [facility] [place] [address] [phone] Oralia Elliott FNP [address] [facility] [address] [place] [address] 06/25/2025 2:00 PM TECHNICIAN AUTOMATED EQUIPMENT Appointment [facility] Ultrasound [place] [address] [phone] Lima Perez, [address] [address] [place] [address] 06/25/2025 2:45 PM TECHNICIAN AUTOMATED EQUIPMENT Appointment [facility] CT Scan [place] [address] [facility] 60 [place] [address] Lima Perez, CONSTANZA [address] [place] [address] 07/04/2025 1:40 PM TECHNICIAN AUTOMATED EQUIPMENT Office Visit [facility] Orthopedics [place] [address] [place] [address] Byron Rubi PA-C [address] [place] [address] 07/10/2025 1:00 PM TECHNICIAN AUTOMATED EQUIPMENT Office Visit [facility] [address] [place] [address] Berlin Summers PA [address] [place] [address] 08/08/2025 3:30 PM TECHNICIAN AUTOMATED EQUIPMENT Office Visit [facility] Douglas Aguayo [address] [place] [address] Nanda Mg NP [address] [place] [address] 08/27/2025 2:20 PM TECHNICIAN AUTOMATED EQUIPMENT Telephone Check Up [facility] Neurosurgery [address] [place] [address] [place] [address] Martínez Han MD [address] [place] [address] 11/07/2025 2:40 PM CDT Office Visit [facility] Family Medicine [place] [address] [address] Nir Paulson MD [address] [address] 11/13/2025 2:30 PM CDT Office Visit [facility] [address] [place] [address] Alfred Tracy MD [address] [place] [address] 01/15/2026 8:45 AM CDT Office Visit [facility] Neurology - [place] [address] [place] [address] Martínez Han MD [address] [place] [address] Yaneth Bass MD [address] [place] [address] documented as of this encounter Visit Diagnoses Not on filedocumented in this encounter Additional Health Concerns Infection Onset Date Last Indicated Resolved Time R/O Respiratory 06/19/2025 06/20/2025 06/20/2025 6 :41 PM CDT Parainfluenza 06/20/2025 06/20/2025 documented as of this encounter Care Teams Fisher Oyster Relationship Specialty Start Date End Date Nir Paulson MD [address] [facility] [place] [phone] PCP - General Family Practice 10/13/21 documented as of this encounter
--- OUTSIDE RECORDS SUMMARY | 2025-06-24 19:40 | XMS_ITS | Encounter Summary ---
Author Organization [facility] Address [address] [place] [address] Care Team Providers Care International Freight Forwarder Name Role Phone Veronica Carvajal MD Primary Care Provider [phone] Reason for Referral * Outpatient Services (Routine) - Closed Specialty Diagnoses / Procedures Referred By Contac t Referred To Contact Diagnoses Abnormal findings on diagnostic imaging of breast Procedures MAMMO POST US/STEREO GUIDED PROCEDURE LT Tom Steen Jr., MD Phone: tel: fax: [facility] Pre-Registration [place] CALL TO MAKE APPOINTMENT ONLY [address] [place] [address] Phone: tel: fax: Referral ID Status Reason Start Date Expiration Date Visits Re quested Visits Authorized [id number] Closed 05/31/2017 07/01/2018 1 1 * Outpatient Services (Routine) - Closed Specialty Diagnoses / Procedures Referred By Contac t Referred To Contact Diagnoses Abnormal findings on diagnostic imaging of breast Procedures MAMMO BREAST US BIOPSY LEFT Tom Steen Jr., MD Phone: tel: fax: [facility] Pre-Registration [place] CALL TO MAKE APPOINTMENT ONLY [address] [place] [address] Phone: tel: fax: Referral ID Status Reason Start Date Expiration Date Visits Re quested Visits Authorized [id number] Closed 05/31/2017 07/01/2018 1 1 Encounter Details Date Type Department Care Team (Late st Contact Info) Description 05/31/2017 Ancillary Orders [facility] Breast [place] [address] [place] [phone] Tom Steen Jr., MD [address] [place] [phone] Abnormal findings on diagnostic imaging of breast [...] on file 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 MANAGER ADOBE Gender Identity Not on file Sexual Orientation [...] mammogram in 6 months to ensure stability. [id number] Narrative 06/03/2017 3:46 PM CDT EXAM: MAMMO [...] mammogram in 6 months to ensure stability. [id number] Narrative 06/03/2017 3:46 PM CDT EXAM: MAMMO [...] breast documented in this encounter Care Teams International Freight Forwarder Relationship Specialty Start Date End Date Veronica Carvajal MD [address] [facility] [address] [place] [address] PCP - General Family Practice 11/20/20 documented as of this encounter
--- OUTSIDE RECORDS SUMMARY | 2025-06-24 19:40 | XMS_ITS | Encounter Summary ---
Author Organization [facility] Address [address] [place] [address] Care Team Providers Care Dray Truck Driver Name Role Phone Nir Paulson MD Primary Care Provider [phone] Reason for Visit * Reason Onset Date Comments Results 06/21/2025 Encounter Details Date Type Department Care Team (Late st Contact Info) Description 06/21/2025 Results Follow-Up [facility] Family Medicine [address] [address] Nir Paulson MD [address] [address] RESPIRATORY PATHOGEN PCR PANEL, XR [...] worry about transportation for future doctor visits, fern picker medication, etc.? No 2024 Housing Stability [...] on file Legal Sex Female 3:40 AM LINOLEUM LAYER HELPER Gender Identity Not on file Sexual [...] st Contact Info) Description 06/25/2025 1:00 PM LINOLEUM LAYER HELPER Appointment [facility] Services [place] [address] [address] Oralia Elliott, SUPERVISOR SHUTTLE VENEERING [address] [facility] [address] [place] [address] 06/25/2025 2:00 PM LINOLEUM LAYER HELPER Appointment [facility] Ultrasound [place] [address] [address] Lima Perez, CARD ROOM MANAGER [address] [place] [address] 06/25/2025 2:45 PM LINOLEUM LAYER HELPER Appointment [facility] CT Scan [place] [address] [address] Lima Perez, CARD ROOM MANAGER [address] [place] [address] 07/04/2025 1:40 PM LINOLEUM LAYER HELPER Office Visit [facility] Orthopedics [place] [address] [facility] [address] [place] [address] Byron Rubi PA-C [address] [place] [address] 07/10/2025 1:00 PM LINOLEUM LAYER HELPER Office Visit [facility] [address] [place] [address] Berlin Summers PA [address] [place] [address] 08/08/2025 3:30 PM LINOLEUM LAYER HELPER Office Visit [facility] Douglas Zheng Olivier [address] [place] [address] Nanda Mg NP [address] [place] [address] 08/27/2025 2:20 PM LINOLEUM LAYER HELPER Telephone Check Up [facility] Neurosurgery [address] [place] [address] [place] [address] Martínez Han MD [address] [place] [address] 11/07/2025 2:40 PM CDT Office Visit [facility] Family Medicine [place] [address] [address] Nir Paulson MD [address] [address] 11/13/2025 2:30 PM CDT Office Visit [facility] Endocrinology [facility] [address] [place] [address] Alfred Tracy MD [address] [place] [address] 01/15/2026 8:45 AM CDT Office Visit [facility] Neurology - [place] [address] [place] [address] Martínez Han MD [address] [place] [address] Yaneth Bass MD [address] [facility] [address] [place] [address] documented as of this encounter Visit Diagnoses Not on filedocumented in this encounter Additional Health Concerns Infection Onset Date Last Indicated Resolved Time Parainfluenza 06/20/2025 06/20/2025 documented as of this encounter Care Teams Dray Truck Driver Relationship Specialty Start Date End Date Nir Paulson MD [address] [place] [phone] PCP - General Family Practice 10/13/21 documented as of this encounter
--- OUTSIDE RECORDS SUMMARY | 2025-06-24 19:40 | XMS_ITS | Encounter Summary ---
Author Organization [facility] Address [address] [place] [address] Care Team Providers Care Senior Manager Creative Services Name Role Phone Nir Paulson MD Primary Care Provider [phone] [phone] Encounter Details Date Type Department Care Team (Latest Contact Info) Description 04/18/2025 Results Follow-Up [facility] Family Medicine [place] [address] [address] Marnie Burns, [facility] [address] [address] COMPREHENSIVE METABOLIC PANEL, CBC WITH [...] worry about transportation for future doctor visits, brain picker medication, etc.? No 2024 Housing Stability [...] on file Legal Sex Female 3:40 AM FOOD ASSEMBLER Gender Identity Not on file Sexual Orientation Not on file documented as of this encounter Plan of Treatment Upcoming Encounters Date Type Department Care Team (Late st Contact Info) Description 06/25/2025 1:00 PM FOOD ASSEMBLER [facility] [place] [address] [address] Oralia Elliott, CANDY PULLER [address] [address] 06/25/2025 2:00 PM FOOD ASSEMBLER Appointment [facility] Ultrasound [place] [address] [address] Lima Perez NP [address] [place] [address] 06/25/2025 2:45 PM FOOD ASSEMBLER Appointment [facility] CT Scan [place] [address] [address] Lima Perez NP [address] [place] [address] 07/04/2025 1:40 PM FOOD ASSEMBLER Office Visit [facility] Orthopedics [place] [address] [facility] [address] [place] [address] Byron Rubi PA-C [address] [place] [address] 07/10/2025 1:00 PM FOOD ASSEMBLER Office Visit [facility] [address] [place] [address] Berlin Summers PA [address] [place] [address] 08/08/2025 3:30 PM FOOD ASSEMBLER Office Visit [facility] Douglas Zheng Olivier [address] [place] [address] Nanda Mg NP [address] [place] [address] 08/27/2025 2:20 PM FOOD ASSEMBLER Telephone Check Up [facility] Neurosurgery [address] [place] [address] [place] [address] Martínez Han MD [address] [place] [address] 11/07/2025 2:40 PM CDT Office Visit [facility] Family Medicine [place] [address] [address] Nir Paulson MD [address] [address] 11/13/2025 2:30 PM CDT Office Visit [facility] Endocrinology [facility] [address] [place] [address] Alfred Tracy MD [address] [place] [address] 01/15/2026 8:45 AM CDT Office Visit [facility] Neurology - [place] [address] [place] [address] Martínez Han MD [address] [place] [address] Yaneth Bass MD [address] [facility] [address] [place] [address] documented as of this encounter Visit Diagnoses Not on filedocumented in this encounter Care Teams Senior Manager Creative Services Relationship Specialty Start Date End Date Nir Paulson MD [address] [place] [id number] PCP - General Family Practice 10/13/21 documented as of this encounter
--- OUTSIDE RECORDS SUMMARY | 2025-06-24 19:40 | XMS_ITS | Encounter Summary ---
Author Organization [facility] Address [address] [place] [address] Care Team Providers Care Java Performance Engineer Name Role Phone Nir Paulson MD Primary Care Provider [phone] [phone] Reason for Visit * Reason Comments Provider Call Encounter Details Date Type Department Care Team (Late st Contact Info) Description 06/21/2025 Telephone [facility] Family Medicine [address] [address] Nir Paulson MD [address] [address] Provider Call Social History Tobacco [...] worry about transportation for future doctor visits, pear picker medication, etc.? No 2024 Housing Stability Answer Date Recorded Do you worry you won t have a steady place to sleep or struggle to pay rent or mortgage? No 06/01/2025 Utility Needs Answer Date Recorded Do you have difficulty payin g for utility costs ([employer] water or gas bills)? No 06/01/2025 Medication [...] on file Legal Sex Female 3:40 AM P D DRIVER Gender Identity Not on file Sexual Orientation Not on file documented as of this encounter Miscellaneous Notes * Telephone Encounter - Arianna Serrato LPN - 06/21/2025 1:48 PM CDT Approval via Medicaid. [facility] DME notified. Arianna Serrato LPN, 06/21/2025 1:49 PM * Telephone Encounter - Anant Stover - 06/21/2025 11:26 AM CDT Copied from [facility] #[id number]. Topic: [id number] Call >> Jun 21, 2025 11:25 AM Anant Chase wrote: Caller is requesting to speak with Clinical Care Team. Caller Name: Mariam phan/ [employer] (Other) Callback Number: [phone] Is the caller a Physician, Nurse Practitioner or Physician Adjunct Art History Instructor? No Call Notes: Mariam states that an order for a nebulizer was received. They are needing a pre-cert started by care team in order to bill insurance. Is this addressing an immediate patient care need? No documented in this encounter Plan of Treatment Upcoming Encounters Date Type Department Care Team (Late st Contact Info) Description 06/25/2025 1:00 PM P D DRIVER Appointment [facility] [address] [address] Oralia Elliott FNP 104 E [facility] [address] [place] [address] 06/25/2025 2:00 PM P D DRIVER Appointment [facility] Ultrasound [place] [address] [place] [address] Lima Perez, CONSTANZA [address] [place] [address] 06/25/2025 2:45 PM P D DRIVER Appointment [facility] CT Scan [place] [address] [place] [address] Lima Perez NP [address] [place] [address] 07/04/2025 1:40 PM P D DRIVER Office Visit [facility] Orthopedics [place] [address] [place] [address] Byron Rubi PA-C [address] [place] [address] 07/10/2025 1:00 PM P D DRIVER Office Visit [facility] [address] [place] [address] Berlin Summers PA [address] [place] [address] 08/08/2025 3:30 PM P D DRIVER Office Visit [facility] Douglas Zheng [place] [address] [place] [address] Nanda Mg NP [address] [place] [address] 08/27/2025 2:20 PM P D DRIVER Telephone Check Up [facility] Neurosurgery [address] [place] [address] [place] [address] Martínez Han MD [address] [place] [address] 11/07/2025 2:40 PM CDT Office Visit [facility] Medicine [place] [address] [address] Nir Paulson MD [address] [place] [address] 11/13/2025 2:30 PM CDT Office Visit [facility] [address] [place] [address] Alfred Tracy MD [address] [place] [address] 01/15/2026 8:45 AM CDT Office Visit [facility] Neurology - [place] [address] [place] [address] Martínez Han MD [address] [place] [address] Yaneth Bass MD [address] [place] [address] documented as of this encounter Visit Diagnoses Not on filedocumented in this encounter Additional Health Concerns Infection Onset Date Last Indicated Resolved Time Parainfluenza 06/20/2025 06/20/2025 documented as of this encounter Care Teams Java Performance Engineer Relationship Specialty Start Date End Date Nir Paulson MD [address] [facility] [place] [address] PCP - General Family Practice 10/13/21 documented as of this encounter
--- OUTSIDE RECORDS SUMMARY | 2025-06-24 19:40 | XMS_ITS | Encounter Summary ---
Author Organization [facility] Address [address] [place] [address] Care Team Providers Care Die Finisher Name Role Phone Veronica Carvajal MD Primary Care Provider [phone] Encounter Details Date Type Department Care Team ([facility] st Contact Info) Description 12/17/2017 Ancillary Orders [facility] Pre-Registration [place] CALL TO MAKE APPOINTMENT ONLY [address] [place] [address] Tom Steen Jr., MD [address] [facility] 3 [place] [address] Abnormal mammogram Social History Tobacco Use Types Packs/Day Years Used Date Smoking Tobacco: Former Cigarettes 0.5 12 0 02/02/1984 - 02/02/1996 Smokeless Tobacco: Never Alcohol Use Standard Drinks/Week Comments No 0 (1 standard drink = 0.6 oz pur e alcohol) Comments No Sex and Gender Information Value Date Recorded Sex Assigned at Not on file 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 CAP CUTTER Gender Identity Not on file Sexual [...] unspecified documented in this encounter Care Teams Die Finisher Relationship Specialty Start Date End Date Veronica Carvajal MD [address] [address] PCP - General Family Practice 11/20/20 documented as of this encounter
--- OUTSIDE RECORDS SUMMARY | 2025-06-24 19:40 | XMS_ITS | Encounter Summary ---
Author Organization [facility] Address [address] [place] [address] Care Team Providers Care Senior Loan Officer Name Role Phone Veronica Carvajal MD Primary Care Provider [phone] Encounter Details Date Type Department Care Team (Late st Contact Info) Description 02/10/2018 Ancillary Orders [facility] [address] [facility] [address] [place] [address] Nir Paulson MD [address] [address] Screening for breast cancer Social [...] on file 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 CONCRETE SWIMMING POOL INSTALLER Gender Identity Not on file Sexual Orientation [...] unspecified documented in this encounter Care Teams Senior Loan Officer Relationship Specialty Start Date End Date Veronica Carvajal MD [address] [address] PCP - General Family Practice 11/20/20 documented as of this encounter
--- OUTSIDE RECORDS SUMMARY | 2025-06-24 19:40 | XMS_ITS | Encounter Summary ---
Author Organization [facility] Address [address] [place] [address] Care Team Providers Care Pca Name Role Phone Nir Paulson MD Primary Care Provider [phone] Encounter Details Date Type Department Care Team (Latest Contact Info) Description 05/17/2025 Results Follow-Up [facility] Endocrinology [facility] [address] [place] [address] Alfred Tracy MD [address] [place] [address] TSH, VITAMIN D 25 HYDROXY, [...] on file Legal Sex Female 3:40 AM GOAT HERDER Gender Identity Not on file Sexual Orientation [...] st Contact Info) Description 06/25/2025 1:00 PM GOAT HERDER Appointment [facility] [place] [address] [address] Oralia Elliott, CITY BUS DRIVER [address] [facility] [address] [place] [address] 06/25/2025 2:00 PM GOAT HERDER Appointment [facility] Ultrasound [place] [address] [address] Lima Perez NP [address] [place] [address] 06/25/2025 2:45 PM GOAT HERDER Appointment [facility] CT Scan [place] [address] [address] Lima Perez NP [address] [place] [address] 07/04/2025 1:40 PM GOAT HERDER Office Visit [facility] Orthopedics [place] [address] [place] [address] Byron Rubi PA-C [address] [place] [address] 07/10/2025 1:00 PM GOAT HERDER Office Visit [facility] [address] [place] [address] Berlin Summres PA [address] [place] [address] 08/08/2025 3:30 PM GOAT HERDER Office Visit [facility] Douglas Zheng Olivier [address] [place] [address] Haritha Nandapat Tello, CONSTANZA [address] [place] [address] 08/27/2025 2:20 PM GOAT HERDER Telephone Check Up [facility] Neurosurgery [address] [place] [address] [place] [address] Martínez Han MD [address] [place] [address] 11/07/2025 2:40 PM CDT Office Visit [facility] Family Medicine [address] [address] Nir Paulson MD [address] [address] 11/13/2025 2:30 PM CDT Office Visit [facility] [address] [place] [address] Alfred Tracy MD [address] [place] [address] 01/15/2026 8:45 AM CDT Office Visit [facility] Neurology - [place] [address] [place] [address] Martínez Han MD [address] [place] [address] Yaneth Bass MD [address] [place] [address] documented as of this encounter Visit Diagnoses Not on filedocumented in this encounter Additional Health Concerns Infection Onset Date Last Indicated Resolved Time R/O Respiratory 06/19/2025 06/20/2025 06/20/2025 6 :41 PM CDT Parainfluenza 06/20/2025 06/20/2025 documented as of this encounter Care Teams Pca Relationship Specialty Start Date End Date Nir Paulson MD [address] [place] [address] PCP - General Family Practice 10/13/21 documented as of this encounter
--- OUTSIDE RECORDS SUMMARY | 2025-06-24 19:40 | XMS_ITS | Encounter Summary ---
Author Organization [facility] Address [address] [place] [address] Care Team Providers Care Freight Hustler Name Role Phone Veronica Carvajal MD Primary Care Provider [phone] Reason for Referral * Outpatient Services (Routine) - Closed Specialty Diagnoses / Procedures Referred By Contac t Referred To Contact Radiology Diagnoses Abnormal mammogram Procedures MAMMO DIAGNOSTIC UNI LEFT W OR WO CAD MAMMO DIAGNOSTIC UNI LEFT W OR WO CAD Nir Paulson MD [address] [address] Phone: tel: fax: [facility] [address] [facility] [address] [place] [address] Phone: tel: fax: Referral ID Status Reason Start Date Expiration Date V isits Requested Visits Authorized [id number] Closed [facility] TO SCHEDULE (SGF) 12/17/2017 01/17/2019 1 1 Encounter Details Date Type Department Care Team (Late st Contact Info) Description 02/10/2018 Ancillary Orders [facility] [address] [facility] [address] [place] [address] Nir Paulson MD [address] [address] Abnormal mammogram Social History Tobacco Use Types Packs/Day Years Used Date Smoking Tobacco: Former Cigarettes 0.5 12 0 02/02/1984 - 02/02/1996 Smokeless Tobacco: Never Alcohol Use Standard Drinks/Week Comments No 0 (1 standard drink = 0.6 oz pur e alcohol) Comments No Sex and Gender Information Value Date Recorded Sex Assigned at Not on file 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 PERCUSSION INSTRUMENT TUNER Gender Identity Not on file Sexual Orientation [...] by the Computer Aided Detection System (CAD), [employer] ImageChecker, Version 8.3. The patient is status [...] RECOMMENDATIONS: Bilateral diagnostic mammogram in 6 months. [id number] Procedure Note Natanael Salazar MD - 02/10/2018 MAMMO DIAGNOSTIC UNI LEFT W OR WO CAD INDICATION FOR EXAMINATION: Abnormal mammogram COMPARISONS: Mammogram dated 05/24/2017, 05/31/2017, 06/02/2017. Ultrasound dated 06/02/2017, 05/31/2017. BREAST COMPOSITION: Heterogeneously dense which may obscure small masses. FINDINGS: This digital mammogram was also analyzed by the Computer Aided Detection System (CAD), [employer]sger, Version 8.3. The patient is status post [...] RECOMMENDATIONS: Bilateral diagnostic mammogram in 6 months. [id number] Nir Paulson MD MAMMO ORDERABLES Final Re sult documented in this encounter Visit Diagnoses Diagnosis Abnormal mammogram Abnormal mammogram, unspecified Abnormal mammogram Abnormal mammogram, unspecified documented in this encounter Care Teams Freight Hustler Relationship Specialty Start Date End Date Veronica Carvajal MD [address] [address] PCP - General Family Practice 11/20/20 documented as of this encounter
--- OUTSIDE RECORDS SUMMARY | 2025-06-24 19:40 | XMS_ITS | Clinical Summary ---
Author Organization [facility] Address [address] [facility] Attn: Epic [place] [address] Care Team Providers Care Venetian Blind Maker Name Role Phone Nir Paulson MD Primary Care Provider [phone] Allergies Active Allergy Reactions Criticality Noted Date [...] daily. 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 Resolved Problems [...] Type Department Care Team Description 06/22/[address] [phone] Nir Paulson MD Provider Call 06/21/[address] [address] Nir Paulson MD Provider Call 06/21/2025 Results Follow-Up [address] [address] Nir Paulson MD RESPIRATORY PATHOGEN PCR PANEL, XR CHEST PA AND LATERAL 2 VW 06/19/2025 2:40 PM CDT - 06/19/2025 11:59 PM CDT Hospital Encounter [facility] [address] [phone] Nir Paulson MD Discharge Disposition: Home or Self Care 06/19/2025 1:20 PM CDT Office Visit [address] [address] Nir Paulson MD Productive cough (Primary Dx); Severe persistent asthma with acute exacerbation (CMS/HCC); half-way (current) use of systemic steroids; CVID (common variable immunodeficiency) 06/19/[address] [address] Nir Paulson MD Provider Call 06/18/2025 3:00 PM CDT Office Visit [facility] Neurosurgery [address] [place] [address] Martínez Han MD Myelopathy (Primary Dx) 06/11/2025 Refill [facility] Endocrinology [facility] [address] [place] [address] Alfred Tracy MD 06/07/2025 3:20 PM CDT Office Visit [address] [phone] Byron Rubi PA-C Bilateral foot pain (Primary Dx); Left knee injury, initial encounter; Nondisplaced fracture of fourth metatarsal bone, left foot, initial encounter for closed fracture; Closed nondisplaced fracture of fifth metatarsal bone of left foot, initial encounter 06/07/2025 2:40 PM CDT Ancillary Procedure [address] [phone] Byron Rubi PA-C Bilateral foot pain 06/07/2025 2:35 PM CDT Ancillary Procedure [address] [phone] Byron Rubi PA-C Left knee injury, initial encounter 06/07/2025 Results Follow-Up [address] [address] Oralia Elliott FNP CBC WITH DIFFERENTIAL, BASIC METABOLIC PANEL 06/06/2025 11:00 AM CDT Office Visit [address] [address] Earl, Crystal Yoly, WOOD ENGRAVER Closed fracture of multiple ribs of left side with routine healing, subsequent encounter (Primary Dx); half-way (current) use of systemic steroids; Osteopenia of multiple sites; Localized swelling of both lower legs; Bilateral edema of lower extremity; Serum calcium elevated; Alkaline phosphatase elevation 06/06/[address] [phone] Nir Paulson MD Benign hypertension; Seronegative rheumatoid arthritis ([facility]) 06/05/2025 External Device Data STL ABSTRACTION Provider, Abstract 06/05/2025 External Device Data STL ABSTRACTION Provider, Abstract 06/05/2025 External Device Data STL ABSTRACTION Provider, Abstract 06/02/2025 Results Follow-Up [facility] Emergency Medicine [address] [place] [phone] Adriana Kauffman APRN URINE CULTURE 06/01/2025 10:12 AM CDT - 06/01/2025 12:30 PM CDT Emergency [facility] Medicine [address] [place] [phone] Closed fracture of multiple ribs of left side, initial encounter (Primary Dx) Discharge Disposition: Home or Self Care 06/01/2025 Travel 05/30/2025 Results Follow-Up [address] [phone] Lima Perez, RETAIL DELIVERY DRIVER BRAIN NATRIURETIC PEPTIDE, BNP OR PROBNP, COMPREHENSIVE METABOLIC PANEL, C-REACTIVE PROTEIN, CBC WITH DIFFERENTIAL 05/30/2025 Results Follow-Up [address] [phone] Lima Perez NP XR CHEST PA AND LATERAL 2 VW 05/30/[address] [phone] Nir Paulson MD Remote Monitoring 05/29/2025 4:27 PM CDT - 05/29/2025 11:59 PM CDT Hospital Encounter [facility] [address] [facility] 60 [place] [address] Chris, Lima, RETAIL DELIVERY DRIVER Discharge Disposition: Home or Self Care 05/29/2025 4:25 PM CDT - 05/29/2025 11:59 PM CDT Hospital Encounter [facility] Outpatient Laboratory Services [place] [address] [facility] 60 [place] [phone] Chris, Lima, RETAIL DELIVERY DRIVER Chest pain, unspecified Discharge Disposition: Home or Self Care 05/29/2025 4:00 PM CDT Office Visit [address] [place] [phone] Chris, Lima, RETAIL DELIVERY DRIVER Rib pain on left side (Primary Dx); Left-sided chest pain; Bilateral lower extremity edema 05/29/2025 Lab Requisition [facility] General Laboratory Services [place] 100 [facility] 60 [place] [phone] Pharr, Lima, RETAIL DELIVERY DRIVER Chest pain, unspecified; Localized edema 05/25/2025 Telephone [facility] [address] [place] [address] Berlin Summers PA Advice Only 05/23/[address] [place] [address] Nir Paulson MD Nausea 05/22/2025 External Device Data STL ABSTRACTION Provider, Abstract 05/18/2025 2:30 PM CDT Office Visit [facility] [address] [place] [address] Berlin Summers PA CVID (common variable immunodeficiency) (CMS/HCC) (Primary Dx); Moderate persistent asthma without complication; Allergic rhinitis due to fungal spores, unspecified seasonality 05/17/2025 Results Follow-Up [facility] Endocrinology [facility] [address] [place] [address] Alfred Tracy MD TSH, VITAMIN D 25 HYDROXY, HEMOGLOBIN A1C 05/16/2025 2:30 PM CDT Office Visit [facility] Endocrinology [facility] [address] [place] [phone] Alfred Tracy MD Controlled type 2 diabetes mellitus without complication, without long-term current use of insulin ([facility]) (Primary Dx); Hypovitaminosis D; Class 1 obesity with serious comorbidity and body mass index (BMI) of 31.0 to 31.9 in adult, unspecified obesity type 05/16/2025 Results Follow-Up [address] [phone] Oralia Elliott FNP URINE CULTURE 05/10/2025 4:00 PM CDT Office Visit [address] [address] Oralia Elliott FNP Infection due to salmonella (Primary Dx); Encounter for routine adult health examination with abnormal findings; Yeast infection; Upper respiratory tract infection, unspecified type; Controlled type 2 diabetes mellitus without complication, without long-term current use of insulin ([facility]) 05/07/[address] [phone] Nir Paulson MD Chronic migraine without aura, intractable, without status migrainosus 05/02/[address] [address] Corie Das, WOOD ENGRAVER Nausea 04/30/2025 Results Follow-Up [address] [phone] Marnie Burns FNP XR CHEST PA AND LATERAL 2 VW 04/27/2025 3:15 PM CDT - 04/27/2025 11:59 PM CDT Hospital Encounter [facility] [address] [phone] Oralia Elliott FNP Discharge Disposition: Home or Self Care 04/27/2025 2:20 PM CDT Office Visit [address] [phone] Oralia Elliott FNP Upper respiratory tract infection, unspecified type (Primary Dx); Skin ulcer of toe of left foot, limited to breakdown of skin (CMS/HCC) 04/19/2025 3:40 PM CDT - 04/19/2025 11:59 PM CDT Hospital Encounter [facility] Orthopedic [place] [address] [place] [phone] Oralia Elliott FNP Discharge Disposition: Home or Self Care 04/18/2025 Results Follow-Up [address] [phone] Marnie Burns FNP COMPREHENSIVE METABOLIC PANEL, CBC WITH DIFFERENTIAL 04/17/2025 2:00 PM CDT Office Visit [address] [phone] Marnie Burns FNP Skin ulcer of toe of left foot, limited to breakdown of skin (CMS/HCC) (Primary Dx); Edema leg 04/11/[address] [place] [address] Corie Das FNP Nausea 04/10/2025 External Device Data STL ABSTRACTION Provider, Abstract 04/03/[address] [phone] Oralia Elliott FNP Information 04/02/[address] [phone] Oralia Elliott FNP Acute cystitis without hematuria (Primary Dx) 03/30/2025 Results Follow-Up [address] [place] [phone] Earl Oralia Francon, WOOD ENGRAVER XR FOOT 3+ VW LEFT, POC URINALYSIS DIPSTICK AUTOMATED, BASIC METABOLIC PANEL, Additional followed-up results: 2 03/29/2025 3:37 PM CDT - 03/29/2025 11:59 PM CDT Hospital Encounter [facility] [address] [place] [phone] Earl, Crystal Yoly, WOOD ENGRAVER Discharge Disposition: Home or Self Care 03/29/2025 2:40 PM CDT Office Visit [facility] [address] [phone] Earl, Crystal Yoly, WOOD ENGRAVER Dysuria (Primary Dx); Benign hypertension; Bilateral edema of lower extremity; Chronic bilateral low back pain with bilateral sciatica; Spondylolisthesis of lumbar region; Lumbosacral spondylosis without myelopathy; S/P lumbar fusion; Skin ulcer of toe of left foot, limited to breakdown of skin ([facility]) 03/28/2025 External Device Data STL ABSTRACTION Provider, Abstract 03/27/[address] [phone] Corie Das FNP Benign hypertension from Last [...] worry about transportation for future doctor visits, picker/puller medication, etc.? No 2024 Housing Stability Answer [...] on file Legal Sex Female 3:40 AM PUMPER GAUGER APPRENTICE Gender Identity Not on file Sexual Orientation [...] st Contact Info) Description 06/25/2025 1:00 PM PUMPER GAUGER APPRENTICE Appointment [facility] Services [place] [address] [address] Oralia Elliott, WOOD ENGRAVER [address] [address] 06/25/2025 2:00 PM PUMPER GAUGER APPRENTICE Appointment [facility] Ultrasound [place] [address] [address] Lima Perez, CONSTANZA [address] [place] [address] 06/25/2025 2:45 PM PUMPER GAUGER APPRENTICE Appointment [facility] CT Scan [place] [address] [address] Lima Perez, CONSTANZA [address] [place] [phone] 07/04/2025 1:40 PM PUMPER GAUGER APPRENTICE Office Visit [facility] Orthopedics [place] [address] [facility] [address] [place] [address] Byron Rubi PA-C [address] [place] [address] 07/10/2025 1:00 PM PUMPER GAUGER APPRENTICE Office Visit [facility] [address] [place] [address] Berlin Summers PA [address] [place] [address] 08/08/2025 3:30 PM PUMPER GAUGER APPRENTICE Office Visit [facility] Douglas Zheng [place] [address] [place] [address] Nanda Mg NP [address] [place] [address] 08/27/2025 2:20 PM PUMPER GAUGER APPRENTICE Telephone Check Up [facility] Neurosurgery [address] [place] [address] Martínez Han MD [address] [place] [address] 11/07/2025 2:40 PM CDT Office Visit [facility] Family Medicine [address] [address] Nir Paulson MD [address] [address] 11/13/2025 2:30 PM CDT Office Visit [facility] Endocrinology [facility] [address] [place] [address] Alfred Tracy MD [address] [place] [address] 01/15/2026 8:45 AM CDT Office Visit [facility] Neurology - [place] [address] [place] [address] Martínez Han MD [address] [place] [address] Yaneth Bass MD [address] [place] [address] Health Maintenance Due Date Last [...] history exists Medical Devices Implanted Type Area Detail Sergeant Device Identifier Shelf Expiration Date Model / Serial / Lot Tightrope Btb Acl [id number] - Sn/A Implanted:Qty: 1 on 06/13/2014 by Onel Ross MD [place] Right: Knee [employer] 02/19/2019 [id number] / N/A / [id number] Mesh [address]ral[address] 4x6in [id number] - Sna Implanted:Qty: 1 on 09/28/2018 by Andre Law MD Mesh N/A: Abdomen CR [employer]ARD[employer] 01/18/2020 [id number] / NA / [id number] Description:Soaked in Ropiva cristian 0.5% 100mg/20mL. Lot [id number], exp 02/11 Screw Biocomp Intrfrnc 9x35mm [id number] - [id number] Implanted:Qty: 1 on 06/13/2014 by Onel Ross MD [place] Right: Knee [employer] 03/22/2015 [id number] / / [id number] Procedures Procedure Name Priority Date/Time Associated Diagnosis Comments RESPIRATORY PATHOGEN PCR PANEL Routine 06/20/2025 2:11 PM CDT Severe persistent asthma with acute exacerbation (CMS/HCC) half-way (current) use of systemic steroids CVID (common [...] complication, without long-term current use of insulin ([facility]) VITAMIN D 25 HYDROXY Routine 05/16/2025 3:07 PM CDT Controlled type 2 diabetes mellitus without complication, without long-term current use of insulin ([facility]) Hypovitaminosis D TSH Routine 05/16/2025 3:07 PM CDT Controlled type 2 diabetes mellitus without complication, without long-term current use of insulin ([facility]) Hypovitaminosis D MICROALBUMIN/CREATINI NE RATIO, RANDOM UR Routine 05/11/2025 8:38 AM CDT Controlled type 2 diabetes mellitus without complication, without long-term current use of insulin ([facility]) URINE CULTURE Routine 05/11/2025 8:38 AM CDT [...] DIABETES EYE EXAM Routine 07/18/2024 12:39 PM PUMPER GAUGER APPRENTICE MAMMO 3D SANDRA SCREEN BILAT W OR WO CAD Routine 06/14/2024 3:45 PM CDT Breast cancer screening by mammogram LIPID PANEL Routine 01/04/2024 11:41 AM CDT Controlled type 2 diabetes mellitus without complication, without long-term current use of insulin ([facility]) from Last 3 Months or Most Recently Relevant to Health Maintenance Results * (ABNORMAL) RESPIRATORY PATHOGEN PCR PANEL (06/20/2025 2:11 PM CDT) COVID-19 PCR NOT DETECTED Not Detected 06/20/2025 6:41 PM CDT [facility] Parainfluenza 2 by PCR DETECTED(A) Not Detected 06/20/2025 6:41 PM CDT [facility] Upper Respiratory ENTIRE NASOPHARYNX / Unknown Collection / Unknown 06/20/2025 2:11 PM CDT 06/20/2025 4:43 PM CDT Narrative [facility] - 06/20/2025 6:41 PM CDT The Film [...] MICROBIOLOGY - GENERAL OR DERABLES Final Result [facility] CLIA # [id number] [address] [place] [address] * XR CHEST PA AND LATERAL 2 [...] [facility] Comment: Test Performed at: [facility] [address] [facility] [place] [address] Tanvir Montero MD Blood 06/06/2025 11:3 9 AM CDT 06/07/2025 3:04 AM CDT Oralia Elliott WOOD ENGRAVER HEMATOLOGY ORDERABLES Fi nal Result [facility] [phone] [facility] [address] [place] [address] * (ABNORMAL) COMPREHENSIVE METABOLIC PANEL (06/06/2025 11:39 AM CDT) Only the most recent of4 resultswithin the time period is included. GLUCOSE 257(H) 65 - 99 mg/dL [facility] Comment: Fasting reference interval For someone [...] [facility] Comment: Test Performed at: [facility] [place] [address] Tanvir Montero MD Blood 06/06/2025 11:3 9 AM CDT 06/07/2025 3:04 AM CDT us Lima Perez NP CHEMISTRY ORDERABLES Final Res ult [facility] [phone] [facility] [address] [place] [address] * (ABNORMAL) BASIC METABOLIC PANEL (06/06/2025 11:39 AM CDT) Only the most recent of2 resultswithin the time period is included. GLUCOSE 254(H) 65 - 99 mg/dL [facility] Comment: Fasting reference interval For someone [...] [facility] Comment: Test Performed at: [facility] [address] [place] [address] Tanvir Montero MD Blood 06/06/2025 11:3 9 AM CDT 06/07/2025 3:04 AM CDT us Oralia Elliott WOOD ENGRAVER CHEMISTRY ORDERABLES Fin al Result Performing Organization Address City/State/[facility] Co de Phone Number [facility] [phone] [facility] [address] [place] [address] * CT CHEST W CONTRAST (06/01/2025 11:42 [...] to Dark Yellow 06/01/2025 10:48 AM T [facility] CLARITY UA Clear Clear 06/01/2025 10:48 AM CDT [facility] SPECIFIC GRAVITY UA 1.015 1.003 - 1.035 06/01/2025 10:48 AM [facility] PH UA 7.5 5.0 - 8.0 06/01/2025 10:48 AM [facility] LEUKOCYTE ESTERASE UA Negative Negative 06/01/2025 10:48 AM T [facility] NITRITE UA Negative Negative 06/01/2025 10:48 AM [facility] PROTEIN UA Trace(A) Negative 06/01/2025 10:48 AM CDT [facility] GLUCOSE UA 2+(A) Negative 06/01/2025 10:48 AM CDT [facility] KETONES UA Negative Negative 06/01/2025 10:48 AM CDT [facility] UROBILINOGEN UA 0.2 <2.0 mg/dL 10:48 AM CDT [facility] BILIRUBIN UA Negative Negative 06/01/2025 10:48 AM CDT [facility] BLOOD UA Negative Negative 06/01/2025 10:48 AM CDT [facility] Urine URINE SPECIMEN OBTAINED BY CLEAN CATCH PROCEDURE / Unknown Collection / Unknown 06/01/2025 10:37 AM CDT 06/01/2025 10:44 AM CDT Adriana Kauffman APRN URINE ORDERABLES Final Result Performing Organization Address City/[facility]/ZIP Co de Phone Number [facility] CLIA # [id number] [address] [place] [address] * URINE CULTURE (06/01/2025 10:37 AM CDT) Only the most recent of3 resultswithin the time period is included. CULTURE Polymicrobial growth consistent with normal urethral lala and/or colonizing bacteria 06/02/2025 12:31 PM CDT [facility] Urine URINE SPECIMEN OBTAINED BY CLEAN CATCH PROCEDURE / Unknown Collection / Unknown 06/01/2025 10:37 AM CDT 06/01/2025 10:44 AM CDT Adriana Kauffman APRN MICROBIOLOGY - GENERAL ORDERABLES Final Result [facility] CLIA # [id number] [address] [place] [address] * (ABNORMAL) BRAIN NATRIURETIC PEPTIDE, BNP OR PROBNP (06/01/2025 10:37 AM CDT) Only the most recent of2 resultswithin the time period is included. PROBNP, N TERMINAL 230(H) 0 - 125 pg/mL 06/01/2025 11:02 AM CDT [facility] Comment: INTERPRETIVE COMMENT based on diagnosis: Diagnostic [...] ORDERABLES Fi nal Result Performing Organization Address [facility] Co de Phone Number [facility] CLIA # [id number] [address] [place] [phone] * (ABNORMAL) C-REACTIVE PROTEIN (05/29/2025 4:35 PM CDT) CRP 7.7(H) <5.0 mg/L 05/29/2025 4:54 PM CDT [facility] Blood BLOOD SPECIMEN / Unknown Collection / Unknown 05/29/2025 4:35 PM CDT 05/29/2025 4:38 PM CDT us Lima Perez RETAIL DELIVERY DRIVER CHEMISTRY ORDERABLES Final Res ult Performing Organization Address [facility]/ZIP Co de Phone Number [facility] CLIA # [id number] [address] [place] [address] * (ABNORMAL) VITAMIN D 25 HYDROXY (05/16/2025 3:07 PM CDT) VITAMIN D, 25 OH, TOTAL 29(L) 30 - 100 ng/mL [facility] Comment: Vitamin D Status 25-OH Vitamin D: Deficiency: <20 ng/mL Insufficiency: 20 - 29 ng/mL Optimal: > or = 30 ng/mL For 25-OH Vitamin D testing on patients on D2-supplementation and patients for whom quantitation of D2 and D3 fractions is required, the [facility] 25-OH VIT D, (D2,D3), LC/MS/MS is recommended: order code 62473 (patients >2yrs). See Note 1 Note 1 For additional information, please refer to http://education.I & Combine/faq/XON862 (This link is being provided for informational/ educational purposes only.) FASTING:NO FASTING: NO Test Performed at: [facility] [address] [place] [address] Tanvir Montero MD Blood 05/16/2025 3:07 PM CDT 05/16/2025 3:10 PM CDT us Alfred Tracy MD CHEMISTRY ORDERABLES Final Res ult Performing Organization Address City/[facility]/ZIP Co de Phone Number [facility] [phone] [facility] [address] [place] [address] * TSH (05/16/2025 3:07 PM CDT) Pathologist [facility] TSH 0.43 0.40 - 4.50 mIU/L [facility] Comment: Test Performed at: [facility] [address] [place] [address] Tanvir oMntero MD Blood 05/16/2025 3:07 PM CDT 05/16/2025 3:10 PM CDT us Alfred Tracy MD CHEMISTRY ORDERABLES Final Res ult [facility] [phone] [address] * (ABNORMAL) HEMOGLOBIN A1C (05/16/2025 3:07 PM CDT) Pathologist [facility] HEMOGLOBIN A1C 6.5(H) <5.7 % [facility] Comment: For someone without known diabetes, [...] children. ESTIMATED AVERAGE GLUCOSE (MG/DL) 140 mg/dL [facility] ESTIMATED AVERAGE GLUCOSE (MMOL/L) 7.7 mmol/L [facility] Comment: FASTING:NO FASTING: NO Test Performed at: [facility] [address] Tanvir Montero MD Blood 05/16/2025 3:07 PM CDT 05/16/2025 3:10 PM CDT Alfred Tracy MD CHEMISTRY ORDERABLES Final Res ult [facility] [phone] [facility] [address] * MICROALBUMIN/CREATININE RATIO, RANDOM UR (05/11/2025 8:38 AM CDT) CREATININE, URINE 232 20 - 275 mg/dL [facility] ALBUMIN, URINE 1.8 See Note: mg/dL [...] within a diagnostic category. Test Performed at: [facility] [address] [facility] [place] [address] Tanvir Montero MD Urine URINE SPECIMEN OBTAINED BY CLEAN CATCH PROCEDURE / Unknown 05/11/2025 8:38 AM CDT 05/12/2025 3:12 AM CDT us Nir Paulson MD URINE ORDERABLES Final Re sult [facility] [phone] [facility] [address] [address] [facility] [place] [address] * MRI LUMBAR WO CONTRAST (04/19/2025 4:17 [...] to severe neuroforaminal narrowing. us Oralia Elliott WOOD ENGRAVER MR ORDERABLES Final Re sult * (ABNORMAL) POC URINALYSIS DIPSTICK AUTOMATED (03/29/2025 4:01 PM CDT) COLOR UA POC Dark Yellow Pale to Dark Yellow [facility] CLARITY UA POC Slightly Cloudy(A) Clear, Other [facility] GLUCOSE UA POC Negative Negative, Normal [facility] BILIRUBIN UA POC 1+(A) Negative [facility] KETONES UA POC Trace(A) Negative [facility] SPECIFIC GRAVITY UA POC >=1.030 1.000 - 1.030 [facility] BLOOD UA POC Trace(A) Negative [facility] LINIC [facility] PH UA POC 6.0 5.0 - 8.0 [facility] IC [facility] PROTEIN UA POC 2+(A) Negative [facility] UROBILINOGEN UA POC 0.2 <2.0 mg/dL [facility] NITRITE UA POC Negative Negative [facility] LEUKOCYTE ESTERASE UA POC Negative Negative [facility] KIT LOT NUMBER POC [phone] [facility] KIT EXP DATE POC 03/22/2026 [facility] Urine 03/29/2025 4:01 PM CDT Oralia Frederick Earl WOOD ENGRAVER POINT OF CARE TESTING Fi nal Result [facility] CLIA# [id number] [address] [place] [address] * XR FOOT 3+ VW LEFT (03/29/2025 [...] ulcer is not well visualized. Oralia Elliott WOOD ENGRAVER DIAGNOSTIC IMAGING ORDER JANESSA Final Result * DIABETES EYE EXAM (07/18/2024 12:39 PM PUMPER GAUGER APPRENTICE) Abstract Provider HEALTH MAINTENANCE Edited Resu lt - Final * MAMMO 3D SANDRA SCREEN BILAT W OR WO CAD (06/14/2024 3:45 PM CDT) Anatomical Region Laterality Modality Breast Bilateral Mammography, Dig ital Radiography Impressions 06/25/2024 2:39 PM PUMPER GAUGER APPRENTICE : No mammographic evidence of malignancy. BI-RADS ASSESSMENT: 1 - Negative RECOMMENDATION: Routine annual screening mammography. Narrative 06/25/2024 2:39 PM PUMPER GAUGER APPRENTICE EXAM: MAMMO SCRN BILAT 3D SANDRA W [...] LDL-C. Dread SS et al. JOSEF. 2013;310(19): 7552-0091 (http://education.I & Combine/faq/QGM618) CHOL/HDL RATIO 2.8 <5.0 (calc) [facility] TOTAL NON-HDL CHOL(LDL+VLDL) 118 <130 mg/dL (calc) [facility] Comment: For patients with diabetes plus 1 major ASCVD risk factor, treating to a non-HDL-C goal of <100 mg/dL (LDL-C of <70 mg/dL) is considered a therapeutic option. Test Performed at: [facility] [address] [address] Tanvir Montero MD Blood 01/04/2024 11:4 1 AM CDT 01/05/2024 3:09 AM CDT Alfred Tracy MD CHEMISTRY ORDERABLES Final Res ult [facility] [phone] [facility] [id number] [address] from Last 3 Months or Most Recently Relevant to Health Maintenance Additional Health Concerns Infection Onset Date Last Indicated Parainfluenza 06/20/2025 06/20/2025 Insurance [facility] Medicaid [place]ID [place] Care Teams Venetian Blind Maker Relationship Specialty Start Date End Date Nir Paulson MD [address] [place] [phone] PCP - General Family Practice 10/13/21
--- OUTSIDE RECORDS SUMMARY | 2025-06-24 19:40 | XMS_ITS | Encounter Summary ---
Author Organization [facility] Address [address] [place] [address] Care Team Providers Care Plastic Parts Designer Name Role Phone Nir Paulson MD Primary Care Provider [phone] [phone] Reason for Visit * Reason Comments Provider Call Encounter Details Date Type Department Care Team (Late st Contact Info) Description 06/22/2025 Telephone [facility] Family Medicine [address] [address] Nir Paulson MD [address] [address] Provider Call Social History Tobacco [...] worry about transportation for future doctor visits, poultry picker medication, etc.? No 2024 Housing Stability Answer Date Recorded Do you worry you won t have a steady place to sleep or struggle to pay rent or mortgage? No 06/01/2025 Utility Needs Answer Date Recorded Do you have difficulty payin g for utility costs ([employer]phant[employer] water or gas bills)? No 06/01/2025 Medication [...] on file Legal Sex Female 3:40 AM WALL COVERING INSTALLER Gender Identity Not on file Sexual Orientation Not on file documented as of this encounter Miscellaneous Notes * Telephone Encounter - Arianna Serrato LPN - 06/22/2025 9:24 AM CDT Approval received 06-21-25. Visit summary faxed. Arianna Serrato LPN, 06/22/2025 9:24 AM * Telephone Encounter - Brayan Da Silva - 06/22/2025 9:18 AM CDT Copied from [facility] #[id number]. Topic: Jbkxgexs-Ir-Ihdemvej Call >> Jun 22, 2025 9:02 AM Brayan Reeves wrote: Caller is requesting to speak with Clinical Care Team. Caller Name: Marianne with [employer] Callback Number: Telephone Information: Is the caller a Physician, Nurse Practitioner or Physician Air Press Operator? No Call Notes: Needing a prior authorization from [place] Medicaid and chart note from the visit on 06/19/2025 for the DME Nebulizer Machine needed for the patient. Please review and fax information tofax # [phone] Is this addressing an immediate patient care need? No documented in this encounter Plan of Treatment Upcoming Encounters Date Type Department Care Team (Late st Contact Info) Description 06/25/2025 1:00 PM WALL COVERING INSTALLER Appointment [facility] [address] [facility] [address] [place] [address] Oralia Elliott, REHABILITATION PHYSICIAN [address] [facility] [address] [place] [address] 06/25/2025 2:00 PM WALL COVERING INSTALLER Appointment [facility] Ultrasound [place] [address] [place] [address] Lima Perez, [address]AN[address] [place] [address] 06/25/2025 2:45 PM WALL COVERING INSTALLER Appointment [facility] CT Scan [place] [address] [place] [address] Lima Perez, CONSTANZA [address] [place] [address] 07/04/2025 1:40 PM WALL COVERING INSTALLER Office Visit [facility] Orthopedics Branden [address] [place] [address] Byron Rubi PA-C [address] [place] [address] 07/10/2025 1:00 PM WALL COVERING INSTALLER Office Visit [facility] [address] [place] [address] Berlin Summers PA [address] [place] [address] 08/08/2025 3:30 PM WALL COVERING INSTALLER Office Visit [facility] Douglas Zheng [place] [address] [place] [address] Nanda Mg NP [address] [place] [address] 08/27/2025 2:20 PM WALL COVERING INSTALLER Telephone Check Up [facility] Neurosurgery [address] [place] [address] Martínez Han MD [address] [place] [address] 11/07/2025 2:40 PM CDT Office Visit [facility] Family Medicine [place] [address] [address] Nir Paulson MD [address] [place] [address] 11/13/2025 2:30 PM CDT Office Visit [facility] [address] [place] [address] Alfred Tracy MD [address] [place] [address] 01/15/2026 8:45 AM CDT Office Visit [facility] Neurology - [place] [address] [place] [address] Martínez Han MD [address] [place] [address] Yaneth Bass MD [address] [place] [address] documented as of this encounter Visit Diagnoses Not on filedocumented in this encounter Additional Health Concerns Infection Onset Date Last Indicated Resolved Time Parainfluenza 06/20/2025 06/20/2025 documented as of this encounter Care Teams Plastic Parts Designer Relationship Specialty Start Date End Date Nir Paulson MD [address] [address] PCP - General Family Practice 10/13/21 documented as of this encounter
--- OUTSIDE RECORDS SUMMARY | 2025-06-24 19:40 | XMS_ITS | Encounter Summary ---
Author Organization [facility] Address [address] [place] [address] Care Team Providers Care Supply Requirements Officer Name Role Phone Nir Paulson MD Primary Care Provider [phone] [phone] Reason for Visit * Reason Comments Provider Call Encounter Details Date Type Department Care Team (Late st Contact Info) Description 06/19/2025 Telephone [facility] Family Medicine [address] [address] Nir Paulson MD [address] [address] Provider Call Social History Tobacco [...] have difficulty payin g for utility costs ([employer] water or gas bills)? No 06/01/2025 Medication [...] on file Legal Sex Female 3:40 AM DITCHER Gender Identity Not on file Sexual Orientation Not on file documented as of this encounter Miscellaneous Notes * Telephone Encounter - Arianna Serrato LPN - 06/19/2025 4:58 PM CDT Faxed again. Arianna Serrato LPN, 06/19/2025 4:58 PM * Telephone Encounter - Aneta Guerrero - 06/19/2025 4:23 PM CDT Copied from [facility] #[id number]. Topic: Xqeburce-Hv-Igzpvvls Call >> Jun 19, 2025 4:21 PM Aneta Reeves wrote: Caller is requesting to speak with Clinical Care Team. Caller Name: [facility] [employer] [facility] [address]. Callback Number: Ph [phone] Fax [phone] Is the caller a Physician, Nurse Practitioner or Physician Whizzer? No Call Notes: Please refax the nebulizer order to [facility]. They didn't get it. Is this addressing an immediate patient care need? No documented in this encounter Plan of Treatment Upcoming Encounters Date Type Department Care Team (Late st Contact Info) Description 06/25/2025 1:00 PM DITCHER Appointment [facility] [address] [phone] EarlOralia echeverria, STAVE JOINTER [address] [address] 06/25/2025 2:00 PM DITCHER Appointment [facility] Ultrasound [place] [address] [place] [address] Lima Perez, LABOR CUSTODIAN [address] [place] [address] 06/25/2025 2:45 PM DITCHER Appointment [facility] CT Scan [place] [address] [place] [address] Lima Perez, CONSTANZA [address] [place] [address] 07/04/2025 1:40 PM DITCHER Office Visit [facility] Orthopedics [place] [address] [place] [address] Byrno Rubi PA-C [address] [place] [address] 07/10/2025 1:00 PM DITCHER Office Visit [facility] [address] [place] [address] Berlin Summers PA [address] [place] [address] 08/08/2025 3:30 PM DITCHER Office Visit [facility] Douglas Zheng [place] [address] [place] [address] Nanda Mg NP [address] [place] [address] 08/27/2025 2:20 PM DITCHER Telephone Check Up [facility] Neurosurgery [address] [place] [address] Martínez Han MD [address] [place] [address] 11/07/2025 2:40 PM CDT Office Visit [facility] Medicine [place] [address] [place] [address] Nir Paulson MD [address] [place] [address] 11/13/2025 2:30 PM CDT Office Visit [facility] [address] [place] [address] Alfred Tracy MD [address] [place] [address] 01/15/2026 8:45 AM CDT Office Visit [facility] Neurology - [place] [address] [place] [address] Martínez Han MD [address] [place] [address] Yaneth Bass MD [address] [place] [address] documented as of this encounter Visit Diagnoses Not on filedocumented in this encounter Additional Health Concerns Infection Onset Date Last Indicated Resolved Time R/O Respiratory 06/19/2025 06/20/2025 06/20/2025 6 :41 PM CDT documented as of this encounter Care Teams Supply Requirements Officer Relationship Specialty Start Date End Date Nir Paulson MD [address] [facility] [place] [address] PCP - General Family Practice 10/13/21 documented as of this encounter
--- OUTSIDE RECORDS SUMMARY | 2025-06-24 19:40 | XMS_ITS | Clinical Summary ---
Author Organization [facility] Address [address] [place] [address] Care Team Providers Care Woodwinds Teacher Name Role Phone Veronica Carvajal MD [...] Comment) (when up and active). 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 steroids Prediabetes 05/21/2015 [...] on file 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 HOSPICE PLAN ADMINISTRATOR Gender Identity Not on file Sexual [...] 09/24/2030 09/24/2020 Medical Devices Implanted Type Area Plate Stacker Hand Device Identifier Shelf Expiration Date Model / Serial / Lot Tightrope Btb Acl [id number] - Sn/A Implanted:Qty: 1 on 06/13/2014 by Onel Ross MD at [facility] Right: Knee [employer] 02/19/2019 [id number] / N/A / [id number] Mesh Ventralight St 4x6in [id number] - Sna Implanted:Qty: 1 on 09/28/2018 by Andre Law MD at [facility] Mesh N/A: Abdomen CR [employer] 01/18/2020 [id number] / NA / [id number] Description:Soaked in Ropiva cristian 0.5% 100mg/20mL. Lot [id number], exp 02/11 Screw Biocomp Intrfrnc 9x35mm [id number] - [id number] Implanted:Qty: 1 on 06/13/2014 by Onel Ross MD at [facility] [place] Right: Knee [employer] 03/22/2015 [id number] / / [id number] Procedures Procedure Name Priority Date/Time Associated Diagnosis Comments HEMOGLOBIN A1C Routine 09/24/2020 10:42 AM HOSPICE PLAN ADMINISTRATOR Type 2 diabetes mellitus without complication, without long-term current use of insulin ([facility]) MAMMO DIAGNOSTIC BILATERAL W OR WO CAD Routine 10/18/2018 3:42 PM HOSPICE PLAN ADMINISTRATOR Abnormal mammogram LIPID PANEL Routine 07/20/2017 3:32 PM HOSPICE PLAN ADMINISTRATOR Seronegative rheumatoid arthritis ([facility]) Essential hypertension Hypertriglyceridemi a from Last 3 Months or Most Recently Relevant to Health Maintenance Results * (ABNORMAL) HEMOGLOBIN A1C (09/24/2020 10:42 AM HOSPICE PLAN ADMINISTRATOR) HEMOGLOBIN A1C 7.0(H) See Comment % 09/24/2020 9:03 PM HOSPICE PLAN ADMINISTRATOR [facility] EST. AVG GLUCOSE, A1C 154 mg/dL 09/24/2020 9:03 PM HOSPICE PLAN ADMINISTRATOR [facility] Blood Collection / Unknown 09/24/2020 10:42 AM HOSPICE PLAN ADMINISTRATOR 09/24/2020 8:38 PM HOSPICE PLAN ADMINISTRATOR Narrative [facility] - 09/24/2020 9:03 PM HOSPICE PLAN ADMINISTRATOR HGB A1C INTERPRETATION NORMAL: <5.7% PRE-DIABETES: 5.7 - 6.4% DIABETES: 6.5% OR GREATER Falsely low A1C measurements can occur when: 1. Anemia and/or hemolytic anemia is present. 2. Hemoglobin variants present. 3. Renal failure. 4. Transfusion of blood product in the last 120 days. We recommend ordering a fructosamine test([id number]) to more accurately assess glycemic status if any of the above conditions are present. us [place] JOHN CHEMISTRY ORDERABLES Final Re sult [facility] CLIA# [id number] [address] [place] [address] * MAMMO DIAGNOSTIC BILATERAL W OR WO CAD (10/18/2018 3:42 PM HOSPICE PLAN ADMINISTRATOR) Anatomical Region Laterality Modality Breast Bilateral Mammography 10/18/2018 3:42 PM HOSPICE PLAN ADMINISTRATOR Impressions 10/20/2018 5:59 AM HOSPICE PLAN ADMINISTRATOR : No mammographic evidence of malignancy. Stable postbiopsy changes of the left breast. Recommend returning to bilateral annual screening mammography in one year. The patient was given verbal and written results/recommendations. BI-RADS ASSESSMENT: 2 - Benign RECOMMENDATION: Bilateral annual screening mammography [id number] Narrative 10/20/2018 5:59 AM HOSPICE PLAN ADMINISTRATOR EXAM: MAMMO DIAGNOSTIC BILATERAL W OR WO [...] * (ABNORMAL) LIPID PANEL (07/20/2017 3:32 PM HOSPICE PLAN ADMINISTRATOR) CHOLESTEROL 235(H) <200 mg/dL 07/26/2017 8:46 AM [facility] TRIGLYCERIDE 162(H) <150 mg/dL 07/26/2017 8:46 AM [facility] HDL 62(H) 40 - 59 mg/dL 07/26/2017 8:46 AM [facility] LDL CALCULATED 141(H) <100 mg/dL 07/26/2017 8:46 AM [facility] NON-HDL CHOLESTEROL 173(H) <130 mg/dL 07/26/2017 8:46 AM [facility] Blood Collection / Unknown 07/20/2017 3:32 PM HOSPICE PLAN ADMINISTRATOR 07/26/2017 8:32 AM HOSPICE PLAN ADMINISTRATOR [facility]ATORY SERVICES-[facility] GOME[facility] - 07/26/2017 8:46 AM HOSPICE PLAN ADMINISTRATOR TOTAL CHOLESTEROL mg/dL Desirable <200 Borderline high [...] Steen Jr., MD CHEMISTRY ORDERABLES Final Result [facility] CHRISTIE# [id number] [facility] [place] [id number] from Last 3 Months or Most Recently Relevant to Health Maintenance Insurance [place] RX [employer] Medicaid [place] Advance Directives For more information, please contact: [phone] * Full Code (Latest Code Status on [...] 2:52 PM 04/09/2017 11:59 PM Care Teams Woodwinds Teacher Relationship Specialty Start Date End Date Veronica Carvajal MD [address] [phone] PCP - General Family Practice 11/20/20
--- OUTSIDE RECORDS SUMMARY | 2025-06-24 19:40 | XMS_ITS | Encounter Summary ---
Author Organization [facility] Address [address] [place] [address] Care Team Providers Care Power Barker Operator Name Role Phone Veronica Carvajal MD Primary Care Provider [phone]- [phone] Encounter Details Date Type Department Care Team (Late st Contact Info) Description 09/22/2018 Ancillary Orders [facility] Pain Management [address] [place] [address] Shannen Harrison PA [address] [place] [address] Chronic bilateral low back pain [...] on file 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 AIRBRUSH ARTIST PHOTOGRAPHY Gender Identity Not on file Sexual Orientation [...] LUMBAR SPINE 4+ VW (09/22/2018 8:45 AM AIRBRUSH ARTIST PHOTOGRAPHY) Anatomical Region Laterality Modality Spine Computed Radiogr aphy 09/22/2018 8:45 AM AIRBRUSH ARTIST PHOTOGRAPHY Impressions 09/22/2018 3:42 PM AIRBRUSH ARTIST PHOTOGRAPHY IMPRESSION: Please see below. Exam: XR LUMBAR [...] flexion and extension. 2. Multilevel degenerative changes. [id number] Narrative Procedure Note Brayan Roman MD - [...] flexion and extension. 2. Multilevel degenerative changes. [id number] Shannen JOHN DIAGNOSTIC IMAGING ORDERABLES Final Result documented in this encounter Visit Diagnoses Diagnosis Chronic bilateral low back pain with bilateral sciatica Subluxation of L4-L5 lumbar vertebra, sequela Chronic bilateral low back pain with bilateral sciatica Subluxation of L4-L5 lumbar vertebra, sequela documented in this encounter Care Teams Power Barker Operator Relationship Specialty Start Date End Date Veronica Carvajal MD [address] [address] PCP - General Family Practice 11/20/20 documented as of this encounter
--- OUTSIDE RECORDS SUMMARY | 2025-06-24 19:40 | XMS_ITS | Encounter Summary ---
Author Organization [facility] Address [address] [place] [address] Care Team Providers Care Shank Skinner Name Role Phone Veronica Carvajal MD Primary Care Provider [phone]- [phone] Reason for Referral * Radiology Services (Routine) - Closed Specialty Diagnoses / Procedures Referred By Contac t Referred To Contact Radiology Diagnoses Abnormal mammogram Procedures MAMMO DIAGNOSTIC BILATERAL W OR WO CAD Nir Paulson MD [address] [address] Phone: tel: fax: [facility] [address] [address] Phone: tel: fax: Referral ID Status Reason Start Date Expiration Date V isits Requested Visits Authorized [id number] Closed F [facility] TO SCHEDULE (SGF) 08/03/2018 09/03/2019 1 1 TURE MASK ETCHER Encounter Details Date Type Department Care Team (Late st Contact Info) Description 08/03/2018 Ancillary Orders [facility] Pre-Registration [place] CALL TO MAKE APPOINTMENT ONLY [address] [place] [address] Nir Paulson MD [address] [address] Abnormal mammogram Social History Tobacco Use Types Packs/Day Years Used Date Smoking Tobacco: Former Cigarettes 0.5 12 0 02/02/1984 - 02/02/1996 Smokeless Tobacco: Never Alcohol Use Standard Drinks/Week Comments No 0 (1 standard drink = 0.6 oz pur e alcohol) Comments No Sex and Gender Information Value Date Recorded Sex Assigned at Not on file 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 APERTURE MASK ETCHER Gender Identity Not on file Sexual Orientation [...] W OR WO CAD (10/18/2018 3:42 PM APERTURE MASK ETCHER) Anatomical Region Laterality Modality Breast Bilateral Mammography 10/18/2018 3:42 PM APERTURE MASK ETCHER Impressions 10/20/2018 5:59 AM APERTURE MASK ETCHER : No mammographic evidence of malignancy. Stable postbiopsy changes of the left breast. Recommend returning to bilateral annual screening mammography in one year. The patient was given verbal and written results/recommendations. BI-RADS ASSESSMENT: 2 - Benign RECOMMENDATION: Bilateral annual screening mammography [id number] Narrative 10/20/2018 5:59 AM APERTURE MASK ETCHER EXAM: MAMMO DIAGNOSTIC BILATERAL W OR WO [...] unspecified documented in this encounter Care Teams Shank Skinner Relationship Specialty Start Date End Date Veronica Carvajal MD [address] [phone] PCP - General Family Practice 11/20/20 documented as of this encounter
--- OUTSIDE RECORDS SUMMARY | 2025-06-24 19:41 | XMS_ITS | Encounter Summary ---
Author Organization [facility] Address [address] [place] [address] Care Team Providers Care Windows Deployment Technician Name Role Phone Veronica Carvajal MD Primary Care Provider Encounter Details Date Type Department Care Team (Latest Contact Info) Description 11/05/2000 Outpatient Historical [facility] Nir Soto MD [address] [place] [address] Headache(784.0) (Primary Dx); Depressive disorder, not elsewhere classified Social History Tobacco Use Types Packs/Day Years Used Date Smoking Tobacco: Never Assessed Comments Unknown Sex and Gender Information Value Date Recorded Sex Assigned at Not on file 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 SIZING END BANDER Gender Identity Not on file Sexual Orientation Not on file documented as of this encounter Plan of Treatment Not on file documented as of this encounter Visit Diagnoses Diagnosis Headache(784.0)- Primary Headache Depressive disorder, not elsewhere classified documented in this encounter Care Teams Windows Deployment Technician Relationship Specialty Start Date End Date Veronica Carvajal MD [address] [facility] [address] [place] [address] PCP - General Family Practice 11/20/20 documented as of this encounter
--- OUTSIDE RECORDS SUMMARY | 2025-06-24 19:41 | XMS_ITS | Encounter Summary ---
Author Organization [facility] Address [address] [place] [address] Care Team Providers Care Kelp Or Seagrass Gatherer Name Role Phone Veronica Carvajal MD Primary Care Provider Encounter Details Date Type Department Care Team (Latest Contact Info) Description 02/14/2001 Outpatient Historical HIS [facility] Nir Soto MD [address] [place] [phone] Headache(784.0) (Primary Dx) Social History Tobacco Use Types Packs/Day Years Used Date Smoking Tobacco: Never Assessed Comments Unknown Sex and Gender Information Value Date Recorded Sex Assigned at Not on file 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 SUPERVISOR CELL EFFICIENCY Gender Identity Not on file Sexual Orientation Not on file documented as of this encounter Plan of Treatment Not on file documented as of this encounter Visit Diagnoses Diagnosis Headache(784.0)- Primary Headache documented in this encounter Care Teams Kelp Or Seagrass Gatherer Relationship Specialty Start Date End Date Veronica Carvajal MD [address] [facility] [address] [place] [phone] PCP - General Family Practice 11/20/20 documented as of this encounter
--- OUTSIDE RECORDS SUMMARY | 2025-06-24 19:41 | XMS_ITS | Encounter Summary ---
Author Organization [facility] Address [address] [place] [address] Care Team Providers Care Enterprise Systems Engineer Name Role Phone Veronica Carvajal MD Primary Care Provider [phone] Encounter Details Date Type Department Care Team (Latest Contact Info) Description 05/28/2000 Outpatient Historical HIS [facility] Nir Soto MD [address] [place] [address] Acute sinusitis, unspecified (Primary Dx); Acute bronchitis Social History Tobacco Use Types Packs/Day Years Used Date Smoking Tobacco: Never Assessed Comments Unknown Sex and Gender Information Value Date Recorded Sex Assigned at Not on file 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 TRACTOR SWEEPER DRIVER Gender Identity Not on file Sexual Orientation Not on file documented as of this encounter Plan of Treatment Not on file documented as of this encounter Visit Diagnoses Diagnosis Acute sinusitis, unspecified- Primary Acute bronchitis documented in this encounter Care Teams Enterprise Systems Engineer Relationship Specialty Start Date End Date Veronica Carvajal MD [address] [facility] [address] [place] [address] PCP - General Family Practice 11/20/20 documented as of this encounter
--- OUTSIDE RECORDS SUMMARY | 2025-06-24 19:41 | XMS_ITS | Encounter Summary ---
Author Organization [facility] Address [address] [place] [address] Care Team Providers Care Drop Wire Builder Name Role Phone Veronica Carvajal MD Primary Care Provider Encounter Details Date Type Department Care Team (Latest Contact Info) Description 06/15/2000 Outpatient Historical HIS [facility] Nir Soto MD [address] [place] [address] Allergic rhinitis, cause unspecified (Primary Dx) Social History Tobacco Use Types Packs/Day Years Used Date Smoking Tobacco: Never Assessed Comments Unknown Sex and Gender Information Value Date Recorded Sex Assigned at Not on file 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 PRICING CLERK Gender Identity Not on file Sexual Orientation Not on file documented as of this encounter Plan of Treatment Not on file documented as of this encounter Visit Diagnoses Diagnosis Allergic rhinitis, cause unspecified- Primary documented in this encounter Care Teams Drop Wire Builder Relationship Specialty Start Date End Date Veronica Carvajal MD [address] [facility] [address] [place] [phone] PCP - General Family Practice 11/20/20 documented as of this encounter
--- OUTSIDE RECORDS SUMMARY | 2025-06-24 19:41 | XMS_ITS | Encounter Summary ---
Author Organization [facility] Address [address] [place] [address] Care Team Providers Care Assembly Adjuster Name Role Phone Veronica Carvajal MD Primary Care Provider [phone] Encounter Details Date Type Department Care Team (Latest Contact Info) Description 04/10/2002 Outpatient Historical HIS [facility] Nir Soto MD [address] [place] [address] TENSION HEADACHE (Primary Dx) Social History Tobacco Use Types Packs/Day Years Used Date Smoking Tobacco: Never Assessed Comments Unknown Sex and Gender Information Value Date Recorded Sex Assigned at Not on file 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 TOOLMAKER Gender Identity Not on file Sexual Orientation Not on file documented as of this encounter Plan of Treatment Not on file documented as of this encounter Visit Diagnoses Diagnosis Tension headache- Primary documented in this encounter Care Teams Assembly Adjuster Relationship Specialty Start Date End Date Veronica Carvajal MD [address] [address] PCP - General Family Practice 11/20/20 documented as of this encounter
--- OUTSIDE RECORDS SUMMARY | 2025-06-24 19:41 | XMS_ITS | Encounter Summary ---
Author Organization [facility] Address [address] [place] [address] Care Team Providers Care Wirer Passenger Car Name Role Phone Veronica Carvajal MD Primary Care Provider Encounter Details Date Type Department Care Team (Latest Contact Info) Description 08/10/2002 Outpatient Historical HIS [facility] Nir Soto MD [address] [place] [address] UNS ASTHMA WOSTATUS ASTHMATICUS (Primary Dx); MIGRAINE NOS W/O MENTN INTRACTABLE Social History Tobacco Use Types Packs/Day Years Used Date Smoking Tobacco: Never Assessed Comments Unknown Sex and Gender Information Value Date Recorded Sex Assigned at Not on file 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 WHEELCHAIR DRIVER Gender Identity Not on file Sexual Orientation Not on file documented as of this encounter Plan of Treatment Not on file documented as of this encounter Visit Diagnoses Diagnosis Unspecified asthma(493.90)- Primary Unspecified asthma Migraine, unspecified, without mention of intractable migraine without mention of status migrainosus documented in this encounter Care Teams Wirer Passenger Car Relationship Specialty Start Date End Date Veronica Carvajal MD [address] [phone] PCP - General Family Practice 11/20/20 documented as of this encounter
--- OUTSIDE RECORDS SUMMARY | 2025-06-24 19:41 | XMS_ITS | Encounter Summary ---
Author Organization [facility] Address [address] [place] [address] Care Team Providers Care Adult And Pediatric Neurologist Name Role Phone Veronica Carvajal MD Primary Care Provider Encounter Details Date Type Department Care Team (Latest Contact Info) Description 10/09/2002 Outpatient Historical HIS [facility] Nir Soto MD [address] [place] [phone] CHEST PAIN NOS (Primary Dx); SOMATIC DYSFUNCTION NEC Social History Tobacco Use Types Packs/Day Years Used Date Smoking Tobacco: Never Assessed Comments Unknown Sex and Gender Information Value Date Recorded Sex Assigned at Not on file 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
--- OUTSIDE RECORDS SUMMARY | 2025-06-24 19:41 | XMS_ITS | Encounter Summary ---
Author Organization [facility] Address [address] [place] [address] Care Team Providers Care Grocery Team Member Name Role Phone Veronica Carvajal MD Primary Care Provider Encounter Details Date Type Department Care Team (Latest Contact Info) Description 04/04/2001 Outpatient Historical HIS [facility] Nir Soto MD [address] [place] [phone] Unspecified asthma(493.90) (Primary Dx); Nausea alone; state, incidental Social History Tobacco Use Types Packs/Day Years Used Date Smoking Tobacco: Never Assessed Comments Unknown Sex and Gender Information Value Date Recorded Sex Assigned at Not on file 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
--- OUTSIDE RECORDS SUMMARY | 2025-06-24 19:41 | XMS_ITS | Encounter Summary ---
Author Organization [facility] Address [address] [place] [address] Care Team Providers Care Hospitality Aide Name Role Phone Veronica Carvajal MD Primary Care Provider Encounter Details Date Type Department Care Team (Latest Contact Info) Description 05/15/1999 Outpatient Historical HIS [facility] Nir Soto MD [address] [place] [address] Other diseases of trachea and bronchus, not elsewhere classified (Primary Dx); Acute upper respiratory infections of unspecified site Social History Tobacco Use Types Packs/Day Years Used Date Smoking Tobacco: Never Assessed Comments Unknown Sex and Gender Information Value Date Recorded Sex Assigned at Not on file 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
--- OUTSIDE RECORDS SUMMARY | 2025-06-24 19:41 | XMS_ITS | Encounter Summary ---
Author Organization [facility] Address [address] [place] [address] Care Team Providers Care Manager Academic Name Role Phone Veronica Carvajal MD Primary Care Provider Encounter Details Date Type Department Care Team (Latest Contact Info) Description 07/04/1999 Outpatient Historical HIS [facility] Nir Soto MD [address] [place] [phone] Foreign body in unspecified site on external eye (Primary Dx) Social History Tobacco Use Types Packs/Day Years Used Date Smoking Tobacco: Never Assessed Comments Unknown Sex and Gender Information Value Date Recorded Sex Assigned at Not on file 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
--- OUTSIDE RECORDS SUMMARY | 2025-06-24 19:41 | XMS_ITS | Encounter Summary ---
Author Organization [facility] Address [address] [place] [address] Care Team Providers Care Cement And Concrete Plant Worker Name Role Phone Veronica Carvajal MD Primary Care Provider [phone] Reason for Referral * Radiology Services (Routine) - Closed Specialty Diagnoses / Procedures Referred By Contac t Referred To Contact Pain Management Diagnoses Other back pain, unspecified chronicity Lumbosacral radiculitis Procedures XR FLUORO LESS THAN 1 HOUR Reymundo Liao MD [facility] Pain Management Procedures [place] [address] [place] [address] Phone: tel: fax: Referral ID Status Reason Start Date Expiration Date Visits Re quested Visits Authorized [id number] Closed 08/19/2020 09/19/2021 1 1 NISTRATIVE ASSISTANT RECEPTIONIST Encounter Details Date Type Department Care Team (Late st Contact Info) Description 08/19/2020 Ancillary Orders [facility] Pain Management Procedures [place] [address] [place] [address] Reymundo Liao MD NO ADDRESS [...] on file 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 ADMINISTRATIVE ASSISTANT RECEPTIONIST Gender Identity Not on file Sexual Orientation [...] COVID-19? No / Unsure 08/22/2020 1:19 PM ADMINISTRATIVE ASSISTANT RECEPTIONIST documented as of this encounter Plan of Treatment Not on file documented as of this encounter Results * XR FLUORO LESS THAN 1 HOUR (08/19/2020 7:35 AM ADMINISTRATIVE ASSISTANT RECEPTIONIST) Narrative 08/19/2020 7:51 AM ADMINISTRATIVE ASSISTANT RECEPTIONIST Order information only. Exam was auto-finalized. Reymundo Liao MD DIAGNOSTIC IMAGING ORDERAB LES Final Result documented in this encounter Visit Diagnoses Diagnosis Other back pain, unspecified chronicity Lumbosacral radiculitis Thoracic or lumbosacral neuritis or radiculitis, unspecified Other back pain, unspecified chronicity Lumbosacral radiculitis Thoracic or lumbosacral neuritis or radiculitis, unspecified documented in this encounter Care Teams Cement And Concrete Plant Worker Relationship Specialty Start Date End Date Veronica Carvajal MD [address] [facility] [address] [place] [phone] PCP - General Family Practice 11/20/20 documented as of this encounter
--- OUTSIDE RECORDS SUMMARY | 2025-06-24 19:41 | XMS_ITS | Encounter Summary ---
Author Organization [facility] Address [address] [place] [address] Care Team Providers Care Transportation Dispatcher Name Role Phone Veronica Carvajal MD Primary Care Provider Encounter Details Date Type Department Care Team (Latest Contact Info) Description 05/11/2000 Outpatient Historical HIS [facility] Nir Soto MD [address] [place] [phone] Headache(784.0) (Primary Dx); Depressive disorder, not elsewhere classified Social History Tobacco Use Types Packs/Day Years Used Date Smoking Tobacco: Never Assessed Comments Unknown Sex and Gender Information Value Date Recorded Sex Assigned at Not on file 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
--- OUTSIDE RECORDS SUMMARY | 2025-06-24 19:41 | XMS_ITS | Encounter Summary ---
Author Organization [facility] Address [address] [place] [address] Care Team Providers Care Stonecutter Name Role Phone Veronica Carvajal MD Primary Care Provider Encounter Details Date Type Department Care Team (Latest Contact Info) Description 04/13/2000 Outpatient Historical HIS [facility] Nir Soto MD [address] [place] [address] Headache(784.0) (Primary Dx); Tension headache; Anxiety state, unspecified; Depressive disorder, not elsewhere classified Social History Tobacco Use Types Packs/Day Years Used Date Smoking Tobacco: Never Assessed Comments Unknown Sex and Gender Information Value Date Recorded Sex Assigned at Not on file 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
--- OUTSIDE RECORDS SUMMARY | 2025-06-24 19:41 | XMS_ITS | Encounter Summary ---
Author Organization [facility] Address [address] [place] [address] Care Team Providers Care Professor Of Art History Name Role Phone Nir Paulson MD Primary Care Provider [phone] Encounter Details Date Type Department Care Team ([facility] Contact Info) Description 11/02/2024 Lab Requisition [facility] Laboratory Services [place] [address] [place] [phone] EarlOralia echeverria, SAW TAILER [address] [address] Cramp and spasm; Spontaneous ecchymoses [...] on file Legal Sex Female 3:40 AM VP SECURITY Gender Identity Not on file Sexual Orientation Not on file documented as of this encounter Plan of Treatment Upcoming Encounters Date Type Department Care Team ([facility] Contact Info) Description 06/25/2025 1:00 PM VP SECURITY Appointment [facility] [address] [place] [address] EarlOralia, SAW TAILER [address] [facility] [address] [place] [address] 06/25/2025 2:00 PM VP SECURITY Appointment [facility] Ultrasound [place] [address] [place] [address] Lima Perez, CONSTANZA [address] [place] [address] 06/25/2025 2:45 PM VP SECURITY Appointment [facility] CT Scan [place] [address] [place] [address] Lima Perez, CONSTANZA [address] [place] [address] 07/04/2025 1:40 PM VP SECURITY Office Visit [facility] [place] [address] [place] [address] Byron Rubi PA-C [address] [place] [address] 07/10/2025 1:00 PM VP SECURITY Office Visit [facility] [address] [place] [address] Berlin Summers PA [address] [place] [address] 08/08/2025 3:30 PM VP SECURITY Office Visit [facility] Douglas Norm [place] [address] [place] [address] Nanda Mg NP [address] [place] [address] 08/27/2025 2:20 PM VP SECURITY Telephone Check Up [facility] Neurosurgery [address] [place] [address] [place] [address] Martínez Han MD [address] [place] [address] 11/07/2025 2:40 PM CDT Office Visit [facility] Family Medicine [place] [address] [place] [address] Nir Paulson MD [address] [place] [address] 11/13/2025 2:30 PM CDT Office Visit [facility] Endocrinology [facility] [address] [place] [address] Alfred Tracy MD [address] [place] [address] 01/15/2026 8:45 AM CDT Office Visit [facility] Neurology - [place] [address] [place] [address] Martínez Han MD [address] [place] [address] Yaneth Bass MD [address] [place] [address] documented as of this encounter [...] - 192 U/L 11/02/2024 3:59 PM CDT [facility] Blood BLOOD SPECIMEN / Unknown Collection / Unknown 11/02/2024 3:30 PM CDT 11/02/2024 3:37 PM CDT us [facility] CHEMISTRY ORDERABLES Fin al Result Performing Organization Address City/[facility] [address]/ZIP Co de Phone Number [facility] CLIA # [id number] [address] [place] [address] * MAGNESIUM LEVEL (11/02/2024 3:30 PM CDT) Pathologist [facility] MAGNESIUM 2.2 1.6 - 2.6 mg/dL 11/02/2024 3:59 PM CDT [facility] Blood BLOOD SPECIMEN / Unknown Collection / Unknown 11/02/2024 3:30 PM CDT 11/02/2024 3:37 PM CDT us Choisrpps SAW TAILER CHEMISTRY ORDERABLES Fin al Result [facility] CLIA # [id number] [address] [place] [address] * (ABNORMAL) COMPREHENSIVE METABOLIC PANEL (11/02/2024 3:30 PM CDT) SODIUM 136 136 - 145 mmol/L 11/02/2024 3:59 PM CDT [facility] POTASSIUM 4.6 3.5 - 5.1 mmol/L 11/02/2024 3:59 PM [facility] CHLORIDE 97(L) 98 - 107 mmol/L 11/02/2024 3:59 PM [facility] CO2 28 22 - 29 mmol/L 11/02/2024 3:59 PM [facility] CALCIUM 9.6 8.6 - 10.0 mg/dL 11/02/2024 3:59 PM [facility] BUN 19 6 - 20 mg/dL 11/02/2024 3:59 PM [facility] CREATININE 0.84 0.51 - 0.95 mg/dL 11/02/2024 3:59 PM [facility] GLUCOSE 181(H) 74 - 99 mg/dL 11/02/2024 3:59 PM [facility] TOTAL PROTEIN 7.0 6.6 - 8.7 g/dL 11/02/2024 3:59 PM [facility] ALBUMIN 4.3 4.0 - 4.9 g/dL 11/02/2024 3:59 PM [facility] BILIRUBIN TOTAL 0.3 <=1.2 mg/dL 11/02/2024 3:59 PM [facility] ALKALINE PHOSPHATASE 91 35 - 104 U/L 11/02/2024 3:59 PM [facility] AST 25 0 - 35 U/L 11/02/2024 3:59 PM [facility] ALT 29 0 - 35 U/L 11/02/2024 3:59 PM [facility] GFR >60 >=60 mL/min/1.7 3 sq meter 11/02/2024 3:59 PM [facility] Comment:eGFR calculated with 2020 CKD-EPI equation. Vegetarian diet, extremely high or low muscle mass, and may affect results. Cystatin C with Glomerular Filtration Rate is a suitable alternative for these patients. ANION GAP 11 5 - 20 mmol/L 11/02/2024 3:59 PM [facility] Blood BLOOD SPECIMEN / Unknown Collection / Unknown 11/02/2024 3:30 PM CDT 11/02/2024 3:37 PM CDT Oralia Elliott SAW TAILER CHEMISTRY ORDERABLES Griffin garza Result [facility] CLIA # [id number] [address] [place] [address] * (ABNORMAL) CBC WITH DIFFERENTIAL (11/02/2024 3:30 PM CDT) Pathologist [facility] WBC 11.0(H) 4.0 - 10.0 K/uL 11/02/2024 3:41 PM CDT [facility] RBC 4.00 3.93 - 5.22 M/uL 11/02/2024 3:41 PM T [facility] HEMOGLOBIN 12.1 11.2 - 15.7 g/dL 11/02/2024 3:41 PM T [facility] HEMATOCRIT 36.8 34.1 - 44.9 % 11/02/2024 3:41 PM T [facility] MCV 92.0 79.4 - 94.8 fL 11/02/2024 3:41 PM T [facility] MCH 30.3 25.6 - 32.2 pg 11/02/2024 3:41 PM [facility] MCHC 32.9 32.2 - 35.5 g/dL 11/02/2024 3:41 PM T [facility] RDW 15.5(H) 11.0 - 14.5 % 11/02/2024 3:41 PM [facility] RDW-STDEV 52.7 36.9 - 56.9 fL 11/02/2024 3:41 PM [facility] PLATELETS 504(H) 163 - 337 K/uL 11/02/2024 3:41 PM [facility] MPV 8.6(L) 10.0 - 14.8 fL 11/02/2024 3:41 PM T [facility] NEUTROPHILS 76(H) 34 - 71 % 11/02/2024 3:41 PM T [facility] LYMPHOCYTES 16(L) 19 - 52 % 11/02/2024 3:41 PM T [facility] MONOCYTES 7 5 - 13 % 11/02/2024 3:41 PM [facility] EOSINOPHILS 0(L) 1 - 6 % 11/02/2024 3:41 PM [facility] BASOPHILS 1 0 - 1 % 11/02/2024 3:41 PM [facility] IMMATURE GRANULOCYTES 1 % 11/02/2024 3:41 PM [facility] NEUTROPHIL ABSOLUTE 8.33(H) 1.56 - 6.13 K/uL 11/02/2024 3:41 PM [facility] LYMPHOCYTE ABSOLUTE 1.75 1.20 - 3.40 K/uL 11/02/2024 3:41 PM T [facility] MONOCYTE ABSOLUTE 0.71(H) 0.24 - 0.36 K/uL 11/02/2024 3:41 PM T [facility] EOSINOPHIL ABSOLUTE 0.02(L) 0.04 - 0.36 K/uL 11/02/2024 3:41 PM [facility] BASOPHILS ABSOLUTE 0.09(H) 0.01 - 0.08 K/uL 11/02/2024 3:41 PM [facility] IMMATURE GRANULOCYTES ABSOLUTE 0.09 K/uL 11/02/2024 3:41 PM [facility] Blood BLOOD SPECIMEN / Unknown Collection / Unknown 11/02/2024 3:30 PM CDT 11/02/2024 3:37 PM CDT us Oralia Elliott SAW TAILER HEMATOLOGY ORDERABLES Fi nal Result [facility] CLIA # [id number] [address] [place] [address] documented in this encounter Visit Diagnoses Diagnosis Cramp and spasm Spontaneous ecchymoses documented in this encounter Additional Health Concerns Infection Onset Date Last Indicated Resolved Time R/O Respiratory 06/19/2025 06/20/2025 06/20/2025 6 :41 PM CDT Parainfluenza 06/20/2025 06/20/2025 documented as of this encounter Care Teams Professor Of Art History Relationship Specialty Start Date End Date Nir Paulson MD [address] [facility] [place] [address] PCP - General Family Practice 10/13/21 documented as of this encounter
[2025-06-24] MEDS: oxyCODONE 5 mg IR Tab/Cap 10 MG PO (21:05)
[2025-06-25] VITALS (18 sets, daily range): BP systolic 119–146; BP diastolic 78–88; PULSE 86–96; RESP 16–18; TEMP 36.7–37; O2SAT 90–98; BMI 30.6
[2025-06-25 05:19] LABS: Hematocrit 34.5 % (36-47); Hemoglobin 11.20 g/dL (11.27-16.99); Mean Corpuscular HGB Conc 32.5 g/dL (30-55); Mean Corpuscular Hemoglobin 30.0 pg (27-33); Mean Corpuscular Volume 92.5 fl (85-98); Nucleated Red Blood Cells % 0 %; Platelet Count 432 10^3/cmm (157-399); Red Blood Count 3.73 10^6/uL (3.85-5.65); White Blood Count 12.43 10^3/uL (3.29-11.43)
[2025-06-25 05:37] LABS: Alanine Aminotransferase 26 U/L (0-33); Albumin Level 3.5 g/dL (3.5-5.2); Alkaline Phosphatase 138 U/L (35-105); Anion Gap 15.6 (5-19); Aspartate Amino Transferase 16 U/L (0-32); Blood Urea Nitrogen 10 mg/dL (6-20); Calcium 9.0 mg/dL (8.5-10.5); Carbon Dioxide 26 mmol/L (22-29); Chloride 97 mmol/L (98-107); Globulin 2.7 g/dL (1.3-4.6); Glucose 149 mg/dL (65-115); Magnesium 2.2 mg/dL (1.7-2.3); Osmolality Calculated 282 mOsm/kg (285-295); Potassium 3.6 mmol/L (3.5-5.1); Sodium 135 mmol/L (136-145); Total Protein 6.2 g/dL (6.6-8.7)
[2025-06-25] MEDS: cefTRIAXone 1,000 mg SDV 1000 MG IVP (05:55)
[2025-06-25] MEDS: metoprolol succinate ER (24 HR) 50 mg Tablet PO (05:56)
[2025-06-25] MEDS: oxyCODONE 5 mg IR Tab/Cap 10 MG PO ×2 (06:26→12:54)
[2025-06-25 07:48] LABS: Glucose Urine UA 2+ (Normal); Nitrate Urine Negative (Negative)
[2025-06-25 07:53] LABS: Add Urine Microscopic? YES
[2025-06-25 08:00] LABS: Specific Gravity, Urine 1.035 (1.005-1.030)
[2025-06-25] MEDS: morphine ER (12 HR) 30 mg tablet PO ×2 (08:34→20:33)
--- NOTE | 2025-06-25 09:21 | PC.CHAP ---
Pastoral Care Encounter/Spiritual Assessment Type of Contact [] Declined chef de cuisine visit [] Patient/Family/Request visit [] Outpatient visit [] Follow-up visit [] Physician referral [] Code/Alert [x] Routine visit [] Staff referral [] Actively dying [] Patient sleeping [] Family support [] [] Out of room [] Palliative care [] [] Receiving care in room [] Pre-surgical visit [] Trauma [] Long length of stay [] ICU visit [] Other: Relational/Emotional Strength [] Patient feels connected with others/family/visitors/staff [] Distress [] Loneliness/isolation [] Abandonment Spirituality of Patient [x] Person of Maria Teresa [] Attends Gnosticism of their Maria Teresa [x Believes in Prayer [] Reads Bible or Baptism materials [] There are Spiritual issues to be addressed Pyroglazer Interventions [x] Prayer [x] Active listening [] Non-anxious presence [] Spiritual/emotional support [] Crisis/trauma care [] Spiritual counseling [] Bereavement support [] Provided bereavement packet [x] Provided Bible/devotional materials [] Provided toy/stuffed animal, coloring book to patient or family member [] Provided Communion [] Anointing/[place] [] Salvation [x] Completed spiritual assessment [] Other: Impact on Illness or Injury [] Angry [] Fearful [] Anxious [] Often cries [] Exhaustion [] Unable to work [] Unable to attend yazdanism [] Unable to walk/stand [] Unable to read [] Unable to drive [] Unable to eat/drink [] Unable to sleep [] Unable to be with family [] Patient intubated [] Other: Summary Time spent with patient 10 min
[2025-06-25] MEDS: methylPREDNISolone sod succ 40 mg/mL INJ IVP ×2 (11:06→18:23)
--- NOTE | 2025-06-25 13:56 | P.PN_ITS ---
Subjective 2 Subjective: Patient was seen this morning, currently alert and oriented x 3, following all commands, does report chest wall discomfort, does have a cough Vitals/I&O/Wt Last Vital Signs Temp 98.3 F 06/25/25 11:09 Pulse 90 06/25/25 11:09 Resp 18 06/25/25 12:54 BP 134/82 06/25/25 11:09 Pulse Ox 96 06/25/25 11:09 O2 Del Method Room Air 06/25/25 11:09 06/24/25 06/25/25 06/25/25 22:59 06:59 14:59 Intake Total 250 / 500 360 / 360 Output Total 400 / 400 Balance 250 / 500 -40 / -40 Weight last 48 hrs Weight 88.768 kg Weight 88.451 kg Weight 90.718 kg Physical Exam 2 Const: COMMON NORMALS: no acute distress and patient oriented x3 Resp: COMMON NORMALS: normal respiratory effort, No retractions, No use of accessory muscles and clear to auscultation bilaterally AUSCULTATION: clear to auscultation bilaterally Cardio: COMMON NORMALS: regular rate, regular rhythm, S1 normal heart sound present and S2 normal heart sound present RATE: regular rate RHYTHM: r egular rhythm HEART SOUNDS: S1 normal heart sound present and S2 normal heart sound present GI: COMMON NORMALS: Normal to inspection, nondistended, normoactive bowel sounds present, Soft to palpation and non-tender PALPATION: Yes Soft to palpation Extremity: COMMON NORMALS: no pedal edema Neuro: COMMON NORMALS: patient oriented x3 Psych: COMMON NORMALS: mental status grossly normal Data 06/25/25 04:36 06/25/25 04:36 Micro: Microbiology 06/24/25 12:00 Blood Culture - Preliminary Blood NEGATIVE TO DATE 06/24/25 12:00 Blood Culture - Preliminary Blood NEGATIVE TO DATE A&P Assessment and plan 1. 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 Pulmonary arteries are normal. No pulmonary embolus. 2. Multiple soft tissue nodules of the right lung, the largest measures 23 mm, concerning for primary lung carcinoma or metastases. Consider non-emergent PET/CT or tissue sampling. (Reference: Radha) References: Radha Reeves, et al. Guidelines for Management of Incidental Pulmonary Nodules Detected on CT Images: From the Fleischner Society 2017. Radiology. 2017;284(1):228-243. 3. Multiple bilateral rib fractures of different ages, including multiple acute fractures. 4. Chronic appearing compression deformities of the T4 and T5 vertebral bodies. 5. Small left pleural effusion with compressive atelectasis of the left lung. 6. Pneumothorax. 7. Multiple enlarged mediastinal and right hilar lymph nodes concerning for lymph node metastases. Plan - Monitor respiratory status closely - Venous ultrasound negative for DVT - Xopenex - Stress dose steroids - Sputum culture - Blood culture - Rocephin - Azithromycin - Continue home prednisone, and hydrocortisone - Low-dose insulin sliding scale, A1c 7.2 - Full code - Lovenox for DVT prophylaxis Left-sided chest pain - More like left-sided chest pleurisy - Serial EKGs, serial troponins, telemetry monitoring Multiple rib fractures - Pain control - Lidocaine patch Multiple soft tissue nodules of the right lung, multiple enlarged mediastinal and right hilar lymph nodes -Will have patient follow-up with pulmonary as outpatient PDMP PDMP Reviewed: Last Reviewed 06/24/25 12:20 by Daniel Hardy MD Attestations 2 Medical Necessity Statement*: Patient requires hospitalization for acute hypoxic respiratory failure Diagnoses Acute hypoxic respiratory failure J96.01
[2025-06-25] MEDS: pantoprazole 40 mg SDV IVP (18:23)
[2025-06-26] VITALS (15 sets, daily range): BP systolic 148–154; BP diastolic 77–85; PULSE 85–115; RESP 16–20; TEMP 36.5–36.8; O2SAT 93–97
[2025-06-26] MEDS: methylPREDNISolone sod succ 40 mg/mL INJ IVP ×2 (02:08→10:06)
[2025-06-26] MEDS: oxyCODONE 5 mg IR Tab/Cap 10 MG PO ×2 (02:12→12:42)
[2025-06-26] MEDS: metoprolol succinate ER (24 HR) 50 mg Tablet PO (04:04)
[2025-06-26 06:19] LABS: Hematocrit 36.6 % (36-47); Hemoglobin 11.70 g/dL (11.27-16.99); Mean Corpuscular HGB Conc 32.0 g/dL (30-55); Mean Corpuscular Hemoglobin 29.2 pg (27-33); Mean Corpuscular Volume 91.3 fl (85-98); Nucleated Red Blood Cells % 0 %; Platelet Count 455 10^3/cmm (157-399); Red Blood Count 4.01 10^6/uL (3.85-5.65); White Blood Count 13.10 10^3/uL (3.29-11.43)
[2025-06-26] MEDS: cefTRIAXone 1,000 mg SDV 1000 MG IVP (06:30)
[2025-06-26 06:39] LABS: Alanine Aminotransferase 27 U/L (0-33); Albumin Level 3.9 g/dL (3.5-5.2); Alkaline Phosphatase 158 U/L (35-105); Anion Gap 18.0 (5-19); Aspartate Amino Transferase 14 U/L (0-32); Blood Urea Nitrogen 10 mg/dL (6-20); Calcium 9.8 mg/dL (8.5-10.5); Carbon Dioxide 23 mmol/L (22-29); Chloride 99 mmol/L (98-107); Globulin 3.2 g/dL (1.3-4.6); Glucose 274 mg/dL (65-115); Magnesium 2.0 mg/dL (1.7-2.3); Osmolality Calculated 291 mOsm/kg (285-295); Potassium 4.0 mmol/L (3.5-5.1); Sodium 136 mmol/L (136-145); Total Protein 7.1 g/dL (6.6-8.7)
[2025-06-26] MEDS: morphine ER (12 HR) 30 mg tablet PO (08:57)
[2025-06-26] MEDS: morphine 4 mg/mL SDV 1 mL 2 MG IVP ×2 (10:06→20:32)
[2025-06-26] MEDS: FUROsemide 10 mg/mL SDV 4mL 40 MG IVP (13:56)
--- NOTE | 2025-06-26 14:34 | P.PN_ITS ---
Subjective 2 Subjective: Patient is currently alert oriented x 3, following commands, she continues to have bilateral rib pain, no fevers, no chills, does have a nonproductive cough Vitals/I&O/Wt Last Vital Signs Temp 98.1 F 06/26/25 11:37 Pulse 111 H 06/26/25 13:23 Resp 20 H 06/26/25 13:23 BP 152/77 06/26/25 11:37 Pulse Ox 95 06/26/25 13:23 O2 Del Method Room Air 06/26/25 13:23 06/25/25 06/26/25 06/26/25 22:59 06:59 14:59 Intake Total 120 / 480 850 / 850 Balance 120 / 80 850 / 850 Weight last 48 hrs Weight 91.682 kg Weight 88.768 kg Weight 88.451 kg Physical Exam 2 Const: COMMON NORMALS: no acute distress and patient oriented x3 Neck/C-Spine: COMMON NORMALS: no JVD Resp: COMMON NORMALS: normal respiratory effort, No retractions, No use of accessory muscles and clear to auscultation bilaterally AUSCULTATION: clear to auscultation bilaterally Cardio: COMMON NORMALS: no JVD, regular rate, regular rhythm, S1 normal heart sound present and S2 normal heart sound present RATE: regular rate RHYTHM: regular rhythm HEART SOUNDS: S1 normal heart sound present and S2 normal heart sound present GI: COMMON NORMALS: Normal to inspection, nondistended, normoactive bowel sounds present and non-tender Extremity: COMMON NORMALS: no pedal edema Neuro: COMMON NORMALS: patient oriented x3 Psych: COMMON NORMALS: mental status grossly normal Data 06/26/25 05:57 06/26/25 05:57 Micro: Microbiology 06/24/25 12:00 Blood Culture - Preliminary Blood NEGATIVE TO DATE 06/24/25 12:00 Blood Culture - Preliminary Blood NEGATIVE TO DATE A&P Assessment and plan 1. Acute hypoxic respiratory failure: Plan: Acute hypoxic respiratory failure - Secondary to concerns for left lower lobe pneumonia - Left pleural effusion - With immunocompromise state, chronically on IgG, currently on Enbrel - Chronically on hydrocortisone, prednisone -Clinically patient has mild respiratory distress, nasal flaring, intercostal retractions, tachypnea, short of breath after fevers diffuse crackles and wheezing in all lung smalls -Left chest pleurisy CT/CT angio chest PE protcl [id number] IMPRESSION: 1. Pulmonary arteries are normal. No pulmonary embolus. 2. Multiple soft tissue nodules of the right lung, the largest measures 23 mm, concerning for primary lung carcinoma or metastases. Consider non-emergent PET/CT or tissue sampling. (Reference: Radha) References: Radha Reeves, et al. Guidelines for Management of Incidental Pulmonary Nodules Detected on CT Images: From the Fleischner Society 2017. Radiology. 2017;284(1):228-243. 3. Multiple bilateral rib fractures of different ages, including multiple acute fractures. 4. Chronic appearing compression deformities of the T4 and T5 vertebral bodies. 5. Small left pleural effusion with compressive atelectasis of the left lung. 6. Pneumothorax. 7. Multiple enlarged mediastinal and right hilar lymph nodes concerning for lymph node metastases. Plan - Monitor respiratory status closely - Venous ultrasound negative for DVT - Xopenex - Status post stress dose steroids - Sputum culture - Blood culture - Rocephin - Azithromycin - Continue home prednisone, and hydrocortisone - Low-dose insulin sliding scale, A1c 7.2 - Full code - Lovenox for DVT prophylaxis Left-sided chest pain - More like left-sided chest pleurisy - Serial EKGs, serial troponins, telemetry monitoring Multiple rib fractures - Pain control - Lidocaine patch Chronic pain, she is on morphine 60 mg twice daily, will continue Multiple soft tissue nodules of the right lung, multiple enlarged mediastinal and right hilar lymph nodes -Will have patient follow-up with pulmonary as outpatient PDMP PDMP Reviewed: Last Reviewed 06/26/25 14:31 by Daniel Hardy MD Attestations 2 Medical Necessity Statement*: Patient requires hospitalization for acute hypoxic respiratory failure Diagnoses Acute hypoxic respiratory failure J96.01
--- NOTE | 2025-06-26 14:37 | US_ITS ---
WS: [id number] Abdominal ultrasound, limited. History: Evaluate for ascites. Comparison: None. All 4 quadrants are imaged by ultrasound to evaluate for ascites. There is no peritoneal fluid identified. Cirrhotic liver. US/US abdomen lmt fluid [id number] IMPRESSION: No peritoneal ascites.
[2025-06-26] MEDS: pantoprazole 40 mg SDV IVP (16:19)
[2025-06-26] MEDS: lactulose oral liq 20 gm/30 mL UDC PO (16:19)
[2025-06-26] MEDS: morphine ER (12 HR) 30 mg tablet 60 MG PO (16:20)
[2025-06-27] VITALS (11 sets, daily range): BP systolic 138–163; BP diastolic 73–92; PULSE 80–97; RESP 16–19; TEMP 36.4–36.8; O2SAT 90–96
[2025-06-27 04:58] LABS: Hematocrit 34.3 % (36-47); Hemoglobin 11.00 g/dL (11.27-16.99); Mean Corpuscular HGB Conc 32.1 g/dL (30-55); Mean Corpuscular Hemoglobin 30.0 pg (27-33); Mean Corpuscular Volume 93.5 fl (85-98); Nucleated Red Blood Cells % 0 %; Platelet Count 426 10^3/cmm (157-399); Red Blood Count 3.67 10^6/uL (3.85-5.65); White Blood Count 14.93 10^3/uL (3.29-11.43)
[2025-06-27 05:21] LABS: Alanine Aminotransferase 22 U/L (0-33); Albumin Level 3.7 g/dL (3.5-5.2); Alkaline Phosphatase 140 U/L (35-105); Anion Gap 16.0 (5-19); Aspartate Amino Transferase 11 U/L (0-32); Blood Urea Nitrogen 14 mg/dL (6-20); Calcium 9.5 mg/dL (8.5-10.5); Carbon Dioxide 26 mmol/L (22-29); Chloride 101 mmol/L (98-107); Globulin 2.8 g/dL (1.3-4.6); Glucose 140 mg/dL (65-115); Magnesium 2.0 mg/dL (1.7-2.3); Osmolality Calculated 291 mOsm/kg (285-295); Potassium 4.0 mmol/L (3.5-5.1); Sodium 139 mmol/L (136-145); Total Protein 6.5 g/dL (6.6-8.7)
[2025-06-27] MEDS: metoprolol succinate ER (24 HR) 50 mg Tablet PO (05:33)
[2025-06-27] MEDS: morphine ER (12 HR) 30 mg tablet 60 MG PO ×2 (05:33→16:36)
[2025-06-27] MEDS: cefTRIAXone 1,000 mg SDV 1000 MG IVP (05:34)
[2025-06-27] MEDS: morphine 4 mg/mL SDV 1 mL 2 MG IVP ×2 (07:08→17:51)
--- NOTE | 2025-06-27 09:49 | XR_ITS ---
WS: [id number] Portable AP upright chest, 06/27/2025 Clinical Data: sob Comparison: Portable chest, 06/24/2025 Findings: No nodules, masses or effusions are seen. The heart is enlarged. The pulmonary vascularity is not increased. No pneumonia or pneumothorax is seen. There are multiple bilateral rib fractures with right and left pleural thickening unchanged. The aortic arch and descending thoracic aorta show mild tortuosity. XR/XR chest 1V portable [id number] Impression: 1. Bilateral pleural thickening probably secondary to pleural blood from bilate ral rib fractures. 2. Atherosclerosis and cardiomegaly.
[2025-06-27 10:30] LABS: Procalcitonin 0.09 ng/mL (0-0.5)
--- NOTE | 2025-06-27 13:23 | P.PN_ITS ---
Subjective 2 Subjective: Patient was seen this morning, no lightheadedness, dizziness, does report persistent shortness of breath and wheezing Vitals/I&O/Wt Last Vital Signs Temp 98.3 F 06/27/25 11:12 Pulse 84 06/27/25 11:12 Resp 18 06/27/25 11:12 BP 153/76 06/27/25 11:12 Pulse Ox 96 06/27/25 11:12 O2 Del Method Room Air 06/27/25 11:12 06/26/25 06/27/25 06/27/25 22:59 06:59 14:59 Intake Total 390 / 1240 610 / 610 Balance 390 / 1240 610 / 610 Weight last 48 hrs Weight 91.626 kg Weight 91.682 kg Physical Exam 2 Const: COMMON NORMALS: no acute distress and patient oriented x3 Resp: COMMON NORMALS: normal respiratory effort, No retractions, No use of accessory muscles and clear to auscultation bilaterally AUSCULTATION: clear to auscultation bilaterally Cardio: COMMON NORMALS: regular rate, regular rhythm, S1 normal heart sound present and S2 normal heart sound present RATE: regular rate RHYTHM: r egular rhythm HEART SOUNDS: S1 normal heart sound present and S2 normal heart sound present GI: COMMON NORMALS: Normal to inspection, nondistended, normoactive bowel sounds present and non-tender Extremity: COMMON NORMALS: no pedal edema Neuro: COMMON NORMALS: patient oriented x3 Psych: COMMON NORMALS: mental status grossly normal Data 06/27/25 04:43 06/27/25 04:43 A&P Assessment and plan 1. Acute hypoxic respiratory failure: Plan: Acute hypoxic respiratory failure - Secondary to concerns for left lower lobe pneumonia - Left pleural effusion - With immunocompromise state, chronically on IgG, currently on Enbrel - Chronically on hydrocortisone, prednisone -Clinically patient has mild respiratory distress, nasal flaring, intercostal retractions, tachypnea, short of breath after fevers diffuse crackles and wheezing in all lung smalls -Left chest pleurisy CT/CT angio chest PE protcl [id number] IMPRESSION: 1. Pulmonary arteries are normal. No pulmonary embolus. 2. Multiple soft tissue nodules of the right lung, the largest measures 23 mm, concerning for primary lung carcinoma or metastases. Consider non-emergent PET/CT or tissue sampling. (Reference: [place]) References: Radha Reeves, et al. Guidelines for Management of Incidental Pulmonary Nodules Detected on CT Images: From the Fleischner Society 2017. Radiology. 2017;284(1):228-243. 3. Multiple bilateral rib fractures of different ages, including multiple acute fractures. 4. Chronic appearing compression deformities of the T4 and T5 vertebral bodies. 5. Small left pleural effusion with compressive atelectasis of the left lung. 6. Pneumothorax. 7. Multiple enlarged mediastinal and right hilar lymph nodes concerning for lymph node metastases. Plan - Monitor respiratory status closely - Venous ultrasound negative for DVT - Xopenex - Status post stress dose steroids - Sputum culture - Blood culture - Rocephin - Azithromycin - Continue home prednisone, and hydrocortisone - Low-dose insulin sliding scale, A1c 7.2 - Full code - Lovenox for DVT prophylaxis Left-sided chest pain - More like left-sided chest pleurisy - Serial EKGs, serial troponins, telemetry monitoring Multiple rib fractures - Pain control - Lidocaine patch Chronic pain, she is on morphine 60 mg twice daily, will continue Multiple soft tissue nodules of the right lung, multiple enlarged mediastinal and right hilar lymph nodes -Will have patient follow-up with pulmonary as outpatient Plan for today, chest x-ray, inflammatory markers, monitor respiratory status PDMP PDMP Reviewed: Last Reviewed 06/26/25 14:36 by Daniel Hardy MD Attestations 2 Medical Necessity Statement*: Patient requires hospital for acute hypoxic respiratory failure secondary pneumonia, rib fractures Diagnoses Acute hypoxic respiratory failure J96.01
[2025-06-27] MEDS: pantoprazole 40 mg SDV IVP (16:36)
[2025-06-28] VITALS (13 sets, daily range): BP systolic 131–177; BP diastolic 74–93; PULSE 74–100; RESP 16–18; TEMP 36.2–37; O2SAT 92–98
[2025-06-28] MEDS: morphine 4 mg/mL SDV 1 mL 2 MG IVP ×2 (04:01→23:15)
[2025-06-28] MEDS: morphine ER (12 HR) 30 mg tablet 60 MG PO ×2 (04:41→16:40)
[2025-06-28] MEDS: metoprolol succinate ER (24 HR) 50 mg Tablet PO (04:42)
[2025-06-28] MEDS: lactulose oral liq 20 gm/30 mL UDC PO (04:42)
[2025-06-28 06:19] LABS: Hematocrit 37.3 % (36-47); Hemoglobin 11.70 g/dL (11.27-16.99); Mean Corpuscular HGB Conc 31.4 g/dL (30-55); Mean Corpuscular Hemoglobin 29.0 pg (27-33); Mean Corpuscular Volume 92.6 fl (85-98); Nucleated Red Blood Cells % 0 %; Platelet Count 420 10^3/cmm (157-399); Red Blood Count 4.03 10^6/uL (3.85-5.65); White Blood Count 10.16 10^3/uL (3.29-11.43)
[2025-06-28] MEDS: cefTRIAXone 1,000 mg SDV 1000 MG IVP (06:31)
[2025-06-28] MEDS: ondansetron 2 mg/ML SDV 2 mL 4 MG IVP (06:31)
[2025-06-28 06:42] LABS: Alanine Aminotransferase 22 U/L (0-33); Albumin Level 3.8 g/dL (3.5-5.2); Alkaline Phosphatase 140 U/L (35-105); Anion Gap 16.7 (5-19); Aspartate Amino Transferase 14 U/L (0-32); Blood Urea Nitrogen 13 mg/dL (6-20); Calcium 9.4 mg/dL (8.5-10.5); Carbon Dioxide 27 mmol/L (22-29); Chloride 98 mmol/L (98-107); Globulin 3.1 g/dL (1.3-4.6); Glucose 148 mg/dL (65-115); Osmolality Calculated 289 mOsm/kg (285-295); Potassium 3.7 mmol/L (3.5-5.1); Sodium 138 mmol/L (136-145); Total Protein 6.9 g/dL (6.6-8.7)
[2025-06-28] MEDS: metoclopramide 5 mg/mL SDV 2 mL IVP (09:42)
--- NOTE | 2025-06-28 13:38 | P.PN_ITS ---
Subjective 2 Subjective: Patient was seen this morning, alert oriented x 3, follows all commands, reports wheezing and cough, shortness of breath Vitals/I&O/Wt Last Vital Signs Temp 97.6 F 06/28/25 11:00 Pulse 87 06/28/25 13:32 Resp 18 06/28/25 11:00 BP 131/85 06/28/25 11:00 Pulse Ox 97 06/28/25 11:00 O2 Del Method Room Air 06/28/25 11:00 O2 Flow Rate 0 06/28/25 07:31 06/27/25 06/28/25 06/28/25 22:59 06:59 14:59 Intake Total 100 / 950 610 / 610 Balance 100 / 950 610 / 610 Weight last 48 hrs Weight 90.718 kg Weight 91.626 kg Physical Exam 2 Const: COMMON NORMALS: no acute distress and patient oriented x3 Resp: COMMON NORMALS: normal respiratory effort, No retractions and No use of accessory muscles AUSCULTATION: crackles and wheezes Cardio: COMMON NORMALS: regular rate, regular rhythm, S1 normal heart sound present and S2 normal heart sound present RATE: regular rate RHYTHM: r egular rhythm HEART SOUNDS: S1 normal heart sound present and S2 normal heart sound present GI: COMMON NORMALS: Normal to inspection, nondistended, normoactive bowel sounds present and non-tender Extremity: COMMON NORMALS: no pedal edema Neuro: COMMON NORMALS: patient oriented x3 Psych: COMMON NORMALS: mental status grossly normal Data 06/28/25 06:06 06/28/25 06:06 A&P Assessment and plan 1. Acute hypoxic respiratory failure: Plan: Acute hypoxic respiratory failure - Secondary to concerns for left lower lobe pneumonia - Left pleural effusion - With immunocompromise state, chronically on IgG, currently on Enbrel - Chronically on hydrocortisone, prednisone -Clinically patient has mild respiratory distress, nasal flaring, intercostal retractions, tachypnea, short of breath after fevers diffuse crackles and wheezing in all lung smalls -Left chest pleurisy CT/CT angio chest PE protcl [id number] IMPRESSION: 1. Pulmonary arteries are normal. No pulmonary embolus. 2. Multiple soft tissue nodules of the right lung, the largest measures 23 mm, concerning for primary lung carcinoma or metastases. Consider non-emergent PET/CT or tissue sampling. (Reference: [place]) References: Radha Reeves, et al. Guidelines for Management of Incidental Pulmonary Nodules Detected on CT Images: From the Fleischner Society 2017. Radiology. 2017;284(1):228-243. 3. Multiple bilateral rib fractures of different ages, including multiple acute fractures. 4. Chronic appearing compression deformities of the T4 and T5 vertebral bodies. 5. Small left pleural effusion with compressive atelectasis of the left lung. 6. Pneumothorax. 7. Multiple enlarged mediastinal and right hilar lymph nodes concerning for lymph node metastases. Plan - Monitor respiratory status closely - Venous ultrasound negative for DVT - Xopenex - Status post stress dose steroids - Sputum culture - Blood culture - Rocephin - Azithromycin - Continue home prednisone, and hydrocortisone - Low-dose insulin sliding scale, A1c 7.2 - Full code - Lovenox for DVT prophylaxis Left-sided chest pain - More like left-sided chest pleurisy - Serial EKGs, serial troponins, telemetry monitoring Multiple rib fractures - Pain control - Lidocaine patch Chronic pain, she is on morphine 60 mg twice daily, will continue Multiple soft tissue nodules of the right lung, multiple enlarged mediastinal and right hilar lymph nodes -Will have patient follow-up with pulmonary as outpatient Plan for today, chest x-ray, inflammatory markers, monitor respiratory status PDMP PDMP Reviewed: Last Reviewed 06/26/25 14:36 by Daniel Hardy MD Attestations 2 Medical Necessity Statement*: Patient requires hospitalization for respiratory failure Diagnoses Acute hypoxic respiratory failure J96.01
[2025-06-28] MEDS: pantoprazole 40 mg SDV IVP (16:40)
[2025-06-29 04:00] VITALS: BP 141/90; PULSE 75; RESP 18; TEMP 36.7; O2SAT 98
[2025-06-29] MEDS: morphine ER (12 HR) 30 mg tablet 60 MG PO (04:14)
[2025-06-29] MEDS: metoprolol succinate ER (24 HR) 50 mg Tablet PO (04:16)
[2025-06-29 05:19] LABS: Hematocrit 36.3 % (36-47); Hemoglobin 11.30 g/dL (11.27-16.99); Mean Corpuscular HGB Conc 31.1 g/dL (30-55); Mean Corpuscular Hemoglobin 28.8 pg (27-33); Mean Corpuscular Volume 92.6 fl (85-98); Nucleated Red Blood Cells % 0 %; Platelet Count 426 10^3/cmm (157-399); Red Blood Count 3.92 10^6/uL (3.85-5.65); White Blood Count 5.81 10^3/uL (3.29-11.43)
[2025-06-29 05:41] LABS: Alanine Aminotransferase 23 U/L (0-33); Albumin Level 3.5 g/dL (3.5-5.2); Alkaline Phosphatase 126 U/L (35-105); Anion Gap 15.3 (5-19); Aspartate Amino Transferase 14 U/L (0-32); Blood Urea Nitrogen 11 mg/dL (6-20); Calcium 8.9 mg/dL (8.5-10.5); Carbon Dioxide 27 mmol/L (22-29); Chloride 100 mmol/L (98-107); Globulin 2.6 g/dL (1.3-4.6); Glucose 152 mg/dL (65-115); Osmolality Calculated 290 mOsm/kg (285-295); Potassium 3.3 mmol/L (3.5-5.1); Sodium 139 mmol/L (136-145); Total Protein 6.1 g/dL (6.6-8.7)
[2025-06-29] MEDS: cefTRIAXone 1,000 mg SDV 1000 MG IVP (05:44)
[2025-06-29 05:45] VITALS: RESP 18
[2025-06-29] MEDS: morphine 4 mg/mL SDV 1 mL 2 MG IVP (05:45)
[2025-06-29 06:46] VITALS: PULSE 74
[2025-06-29 07:37] VITALS: BP 140/86; PULSE 80; RESP 16; TEMP 36.3; O2SAT 97
[2025-06-29 08:50] VITALS: PULSE 91; RESP 18; O2SAT 99
[2025-06-29 11:42] VITALS: BP 137/88; PULSE 90; RESP 17; TEMP 36.8; O2SAT 97
--- NOTE | 2025-06-29 14:16 | PM.CONSULT ---
Providers/Reason For Consult Consulting Physician/Specialty*: Dr. Sukh Scott/ Pulmonary and Critical care Reason for Consult*: Nodule pneumonia left pleural effusion Attending Physician: Daniel Hardy MD Primary Care Provider: Nir Paulson History of Present Illness History of Present Illness Cathi Smith is a 55 year old female with past medical history of rheumatoid arthritis on Enbrel 50 mcg subcu and prednisone 7.5 mg daily and IVIG weekly infusions Gets admitted in the hospital 06/24/2025 with symptoms of cough shortness of breath wheezing fatigue and malaise. She also had some left chest wall discomfort. She was admitted to the hospital diagnosed with pneumonia and started on antibiotics. Chest CT done showed mild mediastinal lymphadenopathy and lung nodules, was consulted for an opinion regarding abnormal CT Currently patient feels well reports less shortness of breath. On room air. Discharged on doxycycline to be completed for 5 days. Medications/Allergies Home Medications ?Medication ?Instructions ?Recorded ?Confirmed ?Last Taken ?Type conjugated estrogens 0.625 mg/gram 0.625 mg vaginal .COMPLEX 10/03/19 06/24/25 02/04/22 History vaginal cream (Premarin) losartan 100 mg tablet 100 mg PO DAILY 10/03/19 06/24/25 06/24/25 History promethazine 25 mg tablet 25 mg PO Q6H PRN Nausea 10/03/19 06/24/25 Unknown History fluticasone propionate 50 1 spray intranasal DAILY PRN 11/08/19 06/24/25 Unknown History mcg/actuation nasal allergies spray,suspension levalbuterol tartrate 45 2 inh inhalation Q4H PRN Shortness 11/08/19 06/24/25 Unknown History mcg/actuation aerosol inhaler Of Breath (Xopenex HFA) mometasone-formoterol HFA 100 2 puff inhalation BID 11/08/19 06/24/25 06/24/25 History mcg-5 mcg/actuation aerosol inhaler (Dulera) azelastine 137 mcg (0.1 %) nasal 1 spray intranasal BID PRN 11/29/19 06/24/25 Unknown History spray allergies ascorbic acid (vitamin C) 500 mg 500 mg PO DAILY 01/25/20 06/24/25 06/24/25 History capsule vitamin B complex 1 cap PO DAILY 01/25/20 06/24/25 06/24/25 History jaden root 1 tab PO DAILY 04/24/20 06/24/25 06/24/25 History cholecalciferol (vitamin D3) 50 50 mcg PO DAILY 06/17/20 06/24/25 06/24/25 History mcg (2,000 unit) capsule spironolactone 50 mg tablet 50 mg PO BID #60 tabs 07/26/20 06/24/25 06/24/25 Rx hydrocortisone 10 mg tablet See Rx Instructions .Route .COMPLEX 01/07/21 06/24/25 06/24/25 History immune globulin,gamma(IgG)klhw 10 10 g SUBCUT Q7D 04/15/21 06/24/25 05/06/25 History gram/50 mL(20%)subcut solution levocetirizine 5 mg tablet (Xyzal) 5 mg PO DAILY 06/17/21 06/24/25 06/24/25 History methocarbamol 750 mg tablet 750 mg PO TID PRN Muscle Spasm 06/14/23 06/24/25 Unknown History acetaminophen 500 mg capsule 500 mg PO BID PRN Pain 09/21/23 06/24/25 Unknown History etanercept 50 mg/mL (1 mL) 50 mg SUBCUT .Q7days #4 mL 12/11/24 06/24/25 Unknown Rx subcutaneous syringe (Enbrel) tramadol 50 mg tablet 50 mg PO TID PRN pain #60 tabs 04/20/25 06/24/25 Unknown Rx mupirocin 2 % topical ointment 1 applic topical TID #15 grams 05/02/25 06/24/25 Unknown Rx amlodipine 10 mg tablet 10 mg PO DAILY 06/24/25 06/24/25 06/24/25 History celecoxib 200 mg capsule 200 mg PO BID 06/24/25 06/24/25 06/24/25 History famotidine 40 mg tablet 40 mg PO DAILY PRN upset stomach 06/24/25 06/24/25 Unknown History furosemide 20 mg tablet 20 mg PO DAILY PRN swelling 06/24/25 06/24/25 Unknown History lidocaine 5 % topical patch 1 patch topical Q24H PRN Pain 06/24/25 06/24/25 Unknown History metoprolol tartrate 25 mg tablet 25 mg PO DAILY PRN Migraine 06/24/25 06/24/25 Unknown History Headache morphine 30 mg tablet,extended 30 mg PO BID PRN extended relief 06/24/25 06/24/25 Unknown History release benzonatate 100 mg capsule 100 mg PO TID PRN Cough 5 days #15 06/29/25 Unknown Rx caps doxycycline hyclate 100 mg tablet 100 mg PO BID 5 days #10 tabs 06/29/25 Unknown Rx insulin aspart U-100 100 unit/mL See Rx Instructions .Route 06/29/25 Unknown Rx (3 mL) subcutaneous pen (Novolog .COMPLEX #15 mL FlexPen U-100 Insulin aspart) metoprolol succinate 50 mg 50 mg PO DAILY 30 days #30 tabs 06/29/25 06/24/25 06/24/25 Rx tablet,extended release 24 hr prednisone 5 mg tablet 7.5 mg (1.5 x 5 mg) PO DAILY 30 06/29/25 Unknown Rx days #45 tabs Allergies Allergy/AdvReac Type Severity Reaction Status Date / Time gabapentin Allergy unknown Verified 05/02/25 11:28 albuterol AdvReac Unknown RASH, Verified 05/02/25 11:28 BLISTERS TO FACE AND HTN certolizumab pegol (From AdvReac Unknown SWELLING Verified 05/02/25 11:28 Cimzia) hydralazine AdvReac Unknown HEADACHE/HT Verified 05/02/25 11:28 N/FLUSHING lisinopril AdvReac Unknown Unknown Verified 05/02/25 11:28 Current Medications Generic Name Dose Route Start Last Admin Trade Name Freq PRN Reason Stop Dose Admin Amlodipine Besylate 10 mg 06/25/25 05:00 06/29/25 04:13 Amlodipine 10 Mg Tablet PO 10 mg DAILY BIGG Administration Azithromycin 250 mg 06/29/25 05:00 06/29/25 04:14 Azithromycin 250 Mg Tablet PO 250 mg DAILY BIGG Administration Protocol Benzonatate 100 mg 06/25/25 07:33 06/29/25 04:13 Benzonatate 100 Mg Capsule PO 100 mg TID PRN Administration COUGH Ceftriaxone Sodium 1,000 mg 06/25/25 06:00 06/29/25 05:44 Ceftriaxone 1,000 Mg Sdv IVP 1,000 mg Q24H BIGG Administration Protocol Enoxaparin Sodium 40 mg 06/24/25 21:00 06/28/25 21:11 Enoxaparin 40 Mg/0.4 Ml Syringe SUBCUT 40 mg Q24H BIGG Administration Hydrocortisone 10 mg 06/24/25 17:30 06/28/25 16:40 Hydrocortisone 10 Mg Tablet PO 10 mg QPM BIGG Administration Insulin Human Lispro 0 unit 06/24/25 18:00 06/29/25 12:11 Insulin Lispro 100 Unit/1 Ml SUBCUT 2 unit WM&BEDTIME BIGG Administration Protocol Ketorolac Tromethamine 15 mg 06/28/25 20:23 06/29/25 04:12 Ketorolac 30 Mg/Ml Inj IVP 07/03/25 20:22 15 mg TID PRN Administration MODERATE PAIN Lactulose 20 gm 06/26/25 14:40 06/29/25 04:15 Lactulose Oral Liq 20 Gm/30 Ml Udc PO Not Given DAILY BIGG Levalbuterol HCl 0.63 mg 06/24/25 16:56 06/29/25 08:48 Levalbuterol 0.63 Mg/3 Ml Neb INHALATION 0.63 mg Q6H PRN Administration sob Lidocaine 1 patch 06/25/25 10:50 06/29/25 04:15 Lidocaine 5% Patch TOPICAL Not Given [id number] BIGG Metoclopramide HCl 5 mg 06/28/25 09:33 06/28/25 09:42 Metoclopramide 5 Mg/Ml Sdv 2 Ml IVP 5 mg ONCE PRN Administration NAUSEA AND VOMITING Metoprolol Succinate 50 mg 06/25/25 05:00 06/29/25 04:16 Metoprolol Succinate Er (24 Hr) 50 Mg Tablet PO 50 mg DAILY BIGG Administration Morphine Sulfate 2 mg 06/24/25 16:56 06/29/25 05:45 Morphine 4 Mg/Ml Sdv 1 Ml IVP 2 mg Q8H PRN Administration SEVERE PAIN Morphine Sulfate 60 mg 06/26/25 17:00 06/29/25 04:14 Morphine Er (12 Hr) 30 Mg Tablet PO 60 mg BID BIGG Administration Ondansetron HCl 4 mg 06/24/25 16:56 06/28/25 06:31 Ondansetron 2 Mg/Ml Sdv 2 Ml IVP 4 mg Q8H PRN Administration vomiting, or N/V if npo Pantoprazole Sodium 40 mg 06/24/25 16:56 06/28/25 16:40 Pantoprazole 40 Mg Sdv IVP 40 mg Q24H BIGG Administration Prednisone 7.5 mg 06/25/25 05:00 06/29/25 04:14 Prednisone 5 Mg Tablet PO 7.5 mg DAILY BIGG Administration Simethicone 80 mg 06/25/25 09:33 06/25/25 18:24 Simethicone 80 Mg Chew PO 80 mg QID PRN Administration FLATULENCE Spironolactone 50 mg 06/24/25 17:30 06/29/25 04:13 Spironolactone 25 Mg Tablet PO 50 mg BID BIGG Administration PFSH Acute PFSH: Medical History (Updated 06/29/25 @ 18:59 by Sukh Scott MD) Multifocal pneumonia Pleural effusion, left Hypogammaglobulinemia Seronegative rheumatoid arthritis of both hands Hx of diverticulitis of colon Recurrent infections Cholecystectomy planned Anxiety state Immunization counseling Rheumatoid arthritis with negative rheumatoid factor High risk medication use Immunosuppression Seronegative rheumatoid arthritis Opioid contract exists Encounter for long-term use of opiate analgesic Back pain, lumbosacral Cystocele Rectocele Surgical History S/P hernia repair Laparoscopic Incisional Hernia Repair 02/05/22 H/O left knee surgery ACL right H/O dilation and curettage H/O section H/O hernia repair H/O arthroscopic knee surgery History of colon resection Family History Other CAD (coronary artery disease) Diabetes Hypertension Lupus (systemic lupus erythematosus) Psychiatric illness Rheumatoid arthritis Denies family history of Anesthesia complication Bleeding disorder Social History Smoking and tobacco/nicotine status: former use of tobacco/nicotine Second hand smoke exposure: No Alcohol intake: former Substance/Drug Use: never Vitals/I&O/Wt Last Vital Signs Temp 98.3 F 06/29/25 11:42 Pulse 90 06/29/25 11:42 Resp 17 06/29/25 11:42 BP 137/88 06/29/25 11:42 Pulse Ox 97 06/29/25 11:42 O2 Del Method Room Air 06/29/25 11:42 O2 Flow Rate 0 06/29/25 08:00 06/28/25 06/29/25 06/29/25 22:59 06:59 14:59 Intake Total 220 / 830 240 / 1070 840 / 840 Balance 220 / 830 240 / 1070 840 / 840 Weight last 48 hrs Weight 200 lb Weight 200 lb Physical Exam Narrative: Per RN General: alert, NAD HEENT: EOMI Pulmonary: Diminished breath sounds bilaterally Cardiovascular: rrr, nl s1s2, Abdomen: soft, nt, nd, no r/g, Extremities: no edema Neurologic: grossly intact Agree with above exam Data 06/29/25 04:35 06/29/25 04:35 A&P Assessment and plan 1. Pleural effusion, left: 2. Multifocal pneumonia: Plan: # Multifocal pneumonia Reviewed labs I reviewed patient's CT scan personally and interpreted results. She has a right lower lobe lung nodule along with some infiltrates and mediastinal and hilar lymphadenopathy. Small left-sided pleural effusion noted as well. Most likely a result of pneumonia. She is feeling better after a few days of antibiotics already. It would be reasonable to rescan her chest 2 to 3 weeks from now to see if the findings are still persistent. I have recommended her to return back to the hospital if she has recurrence of symptoms at which point she might need a bronchoscopy. She agrees. Patient is pending discharge today. # Left pleural effusion -most likely parapneumonic although underlying malignant effusion cannot be ruled out. Plan is to get a CT scan again 3 weeks from now. # Right lower lobe lung nodule-could be nodular pneumonia versus malignancy although she is low risk. She is a non-smoker does not have any personal or family history of lung cancer # Mediastinal and hilar lymphadenopathy-benign versus malignant # Immunocompromised host # Rheumatoid arthritis Thank you the consult Medical decision making level high high-MDM includes number and complexity of problems actively addressed during encounter, amount and/or complexity of data reviewed/ordered [ previous or external records, resulted lab(s)/test(s), ordered lab(s)/test(s), independent historian, independent test interpretation and other healthcare professional discussion] and described risk of complication, morbidity or mortality of management as documented This documentation was created by [employer] fumigator and sterilizer software (known for inherent fumigator and sterilizer error). Every effort was made to assure accuracy of fumigator and sterilizer. Any obvious errors or omissions should be clarified with the author of the document PDMP PDMP Reviewed: Not Reviewed Coding Level of Care Code 82720 Diagnoses Pleural effusion, left J90 Multifocal pneumonia J18.8
--- NOTE | 2025-06-29 15:08 | P.DS_ITS ---
Discharge Providers Date of Admission: 06/24/25 11:37 Date of Discharge: June 29, 2025 Attending Provider at Admission: Daniel Hardy MD Attending Provider at Discharge: Daniel Hardy MD Primary Care Provider: Nir Paulson Diagnoses at Discharge Discharge Diagnosis 1. 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 Currently patient alert oriented x 3, follow commands, she is on room air, blood pressure 133/69, pulse is 82, respiratory rate is 18, temperature 98.2. She tells me that about a week ago she had a fall, she really did not have any rib pain but she had what it sounds like fracture involving her left foot, she has been in the boot, she is weightbearing, is being medically managed, but she tells me that she has been short of breath, she has had a cough, fatigue, malaise, wheezing, shortness of breath, she has been more immobile, no sick contacts, no recent travel, does have left-sided chest discomfort, more chest wall discomfort with taking a deep breath in, Patient was admitted to [facility] for acute hypoxic respiratory failure secondary to left lower lobe pneumonia, left pleural effusion, with bilateral rib fractures, and immunocompromise state. She received IV antibiotics, IV steroids, and clinically monitored, overall clinically improved. Will be discharged on her home steroid regimen, oral antibiotics with close follow-up with primary care provider For her multiple rib fractures, discharge to resume her home morphine regimen Multiple soft tissue nodules of the right lung, multiple enlarged mediastinal and right hilar lymph nodes -Will have patient follow-up with pulmonary as outpatient Physical Exam Const: COMMON NORMALS: no acute distress and patient oriented x3 Resp: COMMON NORMALS: normal respiratory effort, No retractions, No use of accessory muscles and clear to auscultation bilaterally AUSCULTATION: clear to auscultation bilaterally Cardio: COMMON NORMALS: regular rate, regular rhythm, S1 normal heart sound present and S2 normal heart sound present RATE: regular rate RHYTHM: regular rhythm HEART SOUNDS: S1 normal heart sound present and S2 normal heart sound present GI: COMMON NORMALS: Normal to inspection, nondistended, normoactive bowel sounds present, Soft to palpation and non-tender PALPATION: Yes Soft to palpation Extremity: COMMON NORMALS: no pedal edema Neuro: COMMON NORMALS: patient oriented x3 and moves all extremities Psych: COMMON NORMALS: mental status grossly normal Discharge Data Studies Completed and Pending Completed Studies During Hospitalization Category Date Time Status CT angio chest PE protcl [id number] Stat Cat Scan 06/24/25 12:17 Completed XR chest 1V portable [id number] Routine Exams 06/27/25 09:49 Completed XR chest 1V portable [id number] Stat Exams 06/24/25 10:38 [place] [id number] Stat Ultrasound 06/24/25 12:17 Completed US abdomen lmt fluid [id number] Routine Ultrasound 06/26/25 14:37 Completed Pending at discharge Category Date Time Status Blood Culture Stat Lab 06/24/25 12:00 Results Complete Blood Count w/Auto AM LABS Lab 06/30/25 04:00 Ordered Comprehensive Metabolic Panel AM LABS Lab 06/30/25 04:00 Ordered Radiology Impressions Chest CTA 06/24/25 12:17 IMPRESSION: 1. Pulmonary arteries are normal. No pulmonary embolus. 2. Multiple soft tissue nodules of the right lung, the largest measures 23 mm, concerning for primary lung carcinoma or metastases. Consider non-emergent PET/CT or tissue sampling. (Reference: Radha) References: TyroneMahosalome H, et al. Guidelines for Management of Incidental Pulmonary Nodules Detected on CT Images: From the Fleischner Society 2017. Radiology. 2017;284(1):228-243. 3. Multiple bilateral rib fractures of different ages, including multiple acute fractures. 4. Chronic appearing compression deformities of the T4 and T5 vertebral bodies. 5. Small left pleural effusion with compressive atelectasis of the left lung. 6. Pneumothorax. 7. Multiple enlarged mediastinal and right hilar lymph nodes concerning for lymph node metastases. ADDENDUM: 06/24/25 6086 THIS REPORT CONTAINS FINDINGS THAT MAY BE CRITICAL TO PATIENT CARE. The findings were verbally communicated via telephone conference with DANEIL HARDY at 1:59 PM STOCK LETTERER on 06/24/2025. The findings were acknowledged and understood. Patient has history of trauma 2 weeks ago. #6. Of the impression should read no pneumothorax. ADDENDUM: 06/28/25 0803 THIS REPORT CONTAINS FINDINGS THAT MAY BE CRITICAL TO PATIENT CARE. The findings were verbally communicated via telephone conference Dr Brown on 06/24/2025 1:35p CT. The findings were acknowledged and understood. Venous Duplex 06/24/25 12:17 IMPRESSION: No evidence of deep vein thrombosis. Abdomen Ultrasound 06/26/25 14:37 IMPRESSION: No peritoneal ascites. Chest X-Ray 06/27/25 09:49 Impression: 1. Bilateral pleural thickening probably secondary to pleural blood from bilateral rib fractures. 2. Atherosclerosis and cardiomegaly. Laboratory Results WBC 5.81 10^3/uL (3.29-11.43) 06/29/25 04:35 RBC 3.92 10^6/uL (3.85-5.65) 06/29/25 04:35 Hgb 11.30 g/dL (11.27-16.99) 06/29/25 04:35 Hct 36.3 % (36-47) 06/29/25 04:35 MCV 92.6 fl (85-98) 06/29/25 04:35 MCH 28.8 pg (27-33) 06/29/25 04:35 MCHC 31.1 g/dL (30-55) 06/29/25 04:35 RDW 13.6 % (12.1-15.1) 06/29/25 04:35 Plt Count 426 10^3/cmm (157-399) H 06/29/25 04:35 MPV 8.6 fL (7.4-10.4) 06/29/25 04:35 Neut % (Auto) 46.1 % 06/29/25 04:35 Lymph % (Auto) 41.3 % 06/29/25 04:35 [place] % (Auto) 6.4 % 06/29/25 04:35 Eos % (Auto) 1.9 % 06/29/25 04:35 Baso % (Auto) 0.7 % 06/29/25 04:35 Neut # (Auto) 2.68 10^3/uL (1.8-7.7) 06/29/25 04:35 Lymph # (Auto) 2.4 10^3/uL (0.8-4.8) 06/29/25 04:35 [place] # (Auto) 0.4 10^3/uL (0.2-0.9) 06/29/25 04:35 Eos # (Auto) 0.1 10^3/uL (0.0-0.8) 06/29/25 04:35 Baso # (Auto) 0.0 10^3/uL (0.0-0.1) 06/29/25 04:35 Nucleated RBC % (auto) 0 % 06/29/25 04:35 Nucleated RBCs # 0.0 /100WBC 06/29/25 04:35 Sodium 139 mmol/L (136-145) 06/29/25 04:35 Potassium 3.3 mmol/L (3.5-5.1) L 06/29/25 04:35 Chloride 100 mmol/L (98-107) 06/29/25 04:35 Carbon Dioxide 27 mmol/L (22-29) 06/29/25 04:35 Anion Gap 15.3 (5-19) 06/29/25 04:35 BUN 11 mg/dL (6-20) 06/29/25 04:35 Creatinine 0.6 mg/dL (0.5-0.9) 06/29/25 04:35 GFR Calculation 103.0 mL/min (90-130) 06/29/25 04:35 Glucose 152 mg/dL (65-115) H 06/29/25 04:35 POC Glucose 184 mg/dL (70-110) H 06/29/25 10:57 Estimat Average Glucose 163 06/24/25 10:47 Hemoglobin A1c 7.3 % (4.0-6.0) H 06/24/25 10:47 Calculated Osmolality 290 mOsm/kg (285-295) 06/29/25 04:35 Lactic Acid 2.6 mmol/L (0.5-2.2) H 06/24/25 12:00 Lactic Acid (Sepsis) 2.1 mmol/L (0.5-2.2) 06/24/25 14:51 Calcium 8.9 mg/dL (8.5-10.5) 06/29/25 04:35 Phosphorus 3.4 mg/dL (2.5-4.5) 06/27/25 04:43 Magnesium 2.0 mg/dL (1.7-2.3) 06/27/25 04:43 Total Bilirubin 0.2 mg/dL (0.15-1.2) 06/29/25 04:35 AST 14 U/L (0-32) 06/29/25 04:35 ALT 23 U/L (0-33) 06/29/25 04:35 Alkaline Phosphatase 126 U/L (35-105) H 06/29/25 04:35 Troponin T Baseline 50 ng/L (0-10) H 06/24/25 10:47 Troponin T 120 Minute 35.88 ng/L (0-10) H 06/24/25 12:00 Delta Troponin T -14.12 ABS# (0-10) L 06/24/25 12:00 Troponin T Hi Sens 6Hr 31.52 ng/L (0-10) H 06/24/25 17:29 Troponin T Hi Sens 6Hr Delta -18.48 ng/L (0-12) L 06/24/25 17:29 C-Reactive Protein 44.0 mg/L (0.0-4.9) H 06/27/25 04:43 NT-Pro-B Natriuret Pep 127 pg/mL (0-125) H 06/24/25 10:47 Total Protein 6.1 g/dL (6.6-8.7) L 06/29/25 04:35 Albumin 3.5 g/dL (3.5-5.2) 06/29/25 04:35 Globulin 2.6 g/dL (1.3-4.6) 06/29/25 04:35 Procalcitonin 0.09 ng/mL (0-0.5) 06/27/25 04:43 TSH 0.35 uIU/mL (0.27-4.20) 06/24/25 17:29 Urine Color Yellow (Yellow) 06/25/25 07:36 Urine Appearance Clear (CLEAR) 06/25/25 07:36 Urine pH 6.5 (5-7) 06/25/25 07:36 Ur Specific [place] 1.035 (1.005-1.030) H 06/25/25 07:36 Urine Protein 1+ (Negative) A 06/25/25 07:36 Urine Glucose (UA) 2+ (Normal) H 06/25/25 07:36 Urine Ketones Negative (Negative) 06/25/25 07:36 Urine Blood Negative (Negative) 06/25/25 07:36 Urine Nitrate Negative (Negative) 06/25/25 07:36 Urine Bilirubin Negative (Negative) 06/25/25 07:36 Urine Urobilinogen 0.2 mg/dL (Negative) 06/25/25 07:36 Ur Leukocyte Esterase Negative (Negative) 06/25/25 07:36 Urine RBC 0-2 /hpf (0-2) 06/25/25 07:36 Urine WBC 0-5 /hpf (0-5) 06/25/25 07:36 Ur Squamous Epith Cells 0-5 /hpf (0-5) 06/25/25 07:36 Amorphous Sediment Not Reportable 06/25/25 07:36 Urine Bacteria None seen /hpf (NONE) 06/25/25 07:36 Hyaline Casts 2.05 /lpf 06/25/25 07:36 Influenza A (PCR) Negative (Negative) 06/24/25 11:08 Influenza Type B (PCR) Negative (Negative) 06/24/25 11:08 RSV (PCR) Negative (Negative) 06/24/25 11:08 SARS-CoV-2 (PCR) Negative (Negative) 06/24/25 11:08 Vitals Last Vital Signs Temp 98.3 F 06/29/25 11:42 Pulse 90 06/29/25 11:42 Resp 17 06/29/25 11:42 BP 137/88 06/29/25 11:42 Pulse Ox 97 06/29/25 11:42 O2 Del Method Room Air 06/29/25 11:42 O2 Flow Rate 0 06/29/25 08:00 Discharge Plan Discharge Patient Disposition: Home Condition: Stable Prescriptions: New benzonatate 100 mg Capsule 100 mg PO TID PRN (Reason: Cough) 5 Days Qty: 15 0RF insulin aspart U-100 [Novolog FlexPen U-100 Insulin] 100 unit/mL (3 mL) insulin pen See Rx Instructions .ROUTE .COMPLEX Qty: 15 0RF Rx Instructions: inject subcut, tid after meals, based on low dose insulin sliding scale doxycycline hyclate 100 mg tablet 100 mg PO BID 5 Days Qty: 10 0RF Continued losartan 100 mg tablet 100 mg PO DAILY promethazine 25 mg tablet 25 mg PO Q6H PRN (Reason: Nausea) Premarin 0.625 mg/gram cream 0.625 mg VAGINAL .COMPLEX Rx Instructions: Insert 1 gram vaginally 2-3 TIMES PER WEEK. levalbuterol tartrate [Xopenex HFA] 45 mcg/actuation HFA aerosol inhaler 2 inh INHALATION Q4H PRN (Reason: Shortness Of Breath) Dulera 100-5 mcg/actuation HFA aerosol inhaler 2 puff INHALATION BID azelastine 137 mcg (0.1 %) aerosol,spray 1 spray INTRANASAL BID PRN (Reason: allergies) fluticasone propionate 50 mcg/actuation spray,suspension 1 spray INTRANASAL DAILY PRN (Reason: allergies) ascorbic acid (vitamin C) 500 mg capsule 500 mg PO DAILY vitamin B complex Capsule 1 cap PO DAILY hydrocortisone 10 mg tablet See Rx Instructions .ROUTE .COMPLEX Rx Instructions: Take 20 mg by mouth in the am and 10mg in the afternoon. cholecalciferol (vitamin D3) 50 mcg (2,000 unit) capsule 50 mcg PO DAILY jadne root 1 tab PO DAILY immune globulin,gamma(IgG)klhw 10 gram/50 mL (20 %) solution 10 g SUBCUT Q7D levocetirizine [Xyzal] 5 mg tablet 5 mg PO DAILY acetaminophen 500 mg capsule 500 mg PO BID PRN (Reason: Pain) methocarbamol 750 mg tablet 750 mg PO TID PRN (Reason: Muscle Spasm) Enbrel 50 mg/mL (1 mL) syringe 50 mg SUBCUT .Q7days Qty: 4 5RF mupirocin 2 % ointment 1 applic topical TID Qty: 15 0RF Rx Instructions: apply to wound TID and as needed with dressing changes, cover with band-aid spironolactone 50 mg tablet 50 mg PO BID Qty: 60 0RF tramadol 50 mg tablet 50 mg PO TID PRN (Reason: pain) Qty: 60 1RF celecoxib 200 mg capsule 200 mg PO BID morphine 30 mg tablet extended release 30 mg PO BID PRN (Reason: extended relief) amlodipine 10 mg tablet 10 mg PO DAILY lidocaine 5 % adhesive patch,medicated 1 patch topical Q24H PRN (Reason: Pain) furosemide 20 mg tablet 20 mg PO DAILY PRN (Reason: swelling) metoprolol tartrate 25 mg tablet 25 mg PO DAILY PRN (Reason: Migraine Headache) famotidine 40 mg tablet 40 mg PO DAILY PRN (Reason: upset stomach) Rx Instructions: refill request metoprolol succinate 50 mg tablet extended release 24 hr 50 mg PO DAILY 30 Days Qty: 30 0RF prednisone 5 mg tablet 7.5 mg PO DAILY 30 Days Qty: 45 0RF Discontinued metoprolol succinate 25 mg tablet extended release 24 hr 25 mg PO DAILY Rx Instructions: along with 50mg tablet to=75mg total naproxen 500 mg tablet 500 mg PO BID oxycodone 10 mg tablet 10 mg PO .2-3 TIMES DAILY PRN (Reason: Breakthrough Pain) Discharge Order = DC NOW: Discharge Order (Routine); Ordered 06/29/25 Ordered By: Daniel Hardy Referrals: Sukh Scott MD [Physician, Pulmonology] - 3 weeks Referral Note: We have notified your physician's clinic of the need for a follow-up appointment to be scheduled. If you have not heard from them within the next 2 business days, please call them directly. Nir Paulson [Primary Care Provider, Family Practice] - 07/03/25 8:00 am Discharge Diet: Cardiac Discharge Activity: Resume usual activity Patient Instructions: Benzonatate (By mouth) ([place]), Doxycycline (By mouth), Viral Pneumonia (DC), Acute Respiratory Failure (GEN), Opioid Safety, Patient Portal & Rafa Instructions Discharge Attestations Time Spent in Discharge Care*: greater than 30 min Quality Metrics Clinical Quality Measures [ No reported AMI, CVA or VTE this stay] Coding Level of Care Code 08038 Total time (in minutes) for Discharge: 46 Diagnoses Acute hypoxic respiratory failure J96.01
== END 2025-06-29 15:25 | disposition home or self-care (01) | DRG 139 ==
LOC: ER 14:03 → MEDSURG 19:37
PROVIDERS: Admitting Provider Family Medicine; Emergency Provider Emergency Medicine; PCP Family Medicine; Visit Provider Family Medicine
DX: J18.9 Pneumonia, unspecified organism (principal); J96.01 Acute respiratory failure with hypoxia; E27.40 Unspecified adrenocortical insufficiency; D84.9 Immunodeficiency, unspecified; M06.042 Rheumatoid arthritis without rheumatoid factor, left hand; M06.041 Rheumatoid arthritis without rheumatoid factor, right hand; R91.8 Other nonspecific abnormal finding of lung field; S22.43XA Multiple fractures of ribs, bilateral, initial encounter for closed fracture; W19.XXXA Unspecified fall, initial encounter; D80.1 Nonfamilial hypogammaglobulinemia; G89.29 Other chronic pain; Z79.52 Long term (current) use of systemic steroids; Z87.891 Personal history of nicotine dependence; Z79.891 Long term (current) use of opiate analgesic
CPT/HCPCS: 36415; 36416; 71045; 71275; 76705; 80053; 81001; 82962; 83036; 83605; 83735; 83880; 84100; 84145; 84443; 84484; 85025; 86140; 87040; 87637; 93005; 93970; 94640; 94664; 94760; 96365; 96372; 96375; 99285; J0456; J0696; J1650; J1720; J1815; J1885; J1938; J2270; J2405; J2470; J2765; J2919; J7050; J7512; J7614; J8499; J9999; Q0144

== ENCOUNTER → 2025-07-04 11:44 | Outpatient (BNVA) | payer MEDICAID, SELFPAY | PROVIDERS: PCP Family Medicine; Visit Provider Internal Medicine Rheumatology | DX: M06.041 Rheumatoid arthritis without rheumatoid factor, right hand (principal); M06.042 Rheumatoid arthritis without rheumatoid factor, left hand; Z79.899 Other long term (current) drug therapy; Z71.85 Encounter for immunization safety counseling; D80.1 Nonfamilial hypogammaglobulinemia; N17.8 Other acute kidney failure; Z98.890 Other specified postprocedural states; M47.814 Spondylosis without myelopathy or radiculopathy, thoracic region; M47.816 Spondylosis without myelopathy or radiculopathy, lumbar region | CPT/HCPCS: 99214 ==

== ENCOUNTER 2025-08-08 20:02 | Emergency (ER) | payer MEDICAID, SELFPAY ==
--- OUTSIDE RECORDS SUMMARY | 2025-02-01 08:40 | XMS_ITS ---
Author Organization [facility] Address [address] [place] [address] Care Team Providers Care Solutions Consultant Name Role Phone Nir Paulson MD Primary Care Provider UnavailKira Silva Unavailable [phone] Nanda Wright Unavailable [phone] REASON FOR VISIT 6 weeks f/u GOLD RECLAIMER Encounters Encounter Location Date Provider Diagnosis [facility] [place] [address] [place] [address] 02/01/2025 Nanda Wright Chronic pain syndrome G89.4 ; Radiculopathy, lumbosacral region M54.17 ; Spinal stenosis, lumbar region with neurogenic claudication M48.062 and Chronic prescription opiate use Z79.891 Assessments Encounter Date Diagnosis (ICD Code) Assessment Notes Treatment Notes Treatment Clinical Notes Section Notes 02/01/2025 Chronic pain syndrome (ICD-10 - G89.4) 02/01/2025 Radiculopathy, lumbosacral region (ICD-10 - M54.17) 02/01/2025 Spinal stenosis, lumbar region with neurogenic claudication (ICD-10 - M48.062) 02/01/2025 Chronic prescription opiate use (ICD-10 - Z79.891) Plan Of Treatment Next Appt Details Provider Name:Kira Weinstein, 09/04/2025 02:20:00 PM, [address] [place], [address], History and Physical Notes * HPI (History of Present Illness) Category Sub-Category Detail Notes Category Not es Provider Note Interventions: 09/20/2024 caudal DELFINO L4-S1 TLIF on 09/07/22 Dr. Womack Pertinent Imaging: LS MRI in [facility] at [place] The EMG/NCV study shows a chronic right S1 radiculopathy and a chronic left L5 radiculopathy. Original HPI: Patient presents today to my clinic to establish care. She is being referred by Dr. Womack, her neurosurgeon. She has low back and posterior leg pain ongoing multiple years with no inciting event. Pain level is 9/10 at its worst, 4/10 at its least, and average is 6/10. Pain right now is 7/10. Pain quality is deep, sharp, tender, aching, and numb. It is continuous. Worsening factors include sitting, standing, walking, lifting, housework, increased activity, bending, and twsiting. Relieving factors include sitting, standing, walking, hot pack, massage, rest, and medications. Associated symptoms include nausea, vomiting, weakness, falling, frustration, insomnia, and numbness. No pertinent mental health history. She previously saw Dr. Donohue who is an ER physician in [place], [place]. She got dismissed from that clinic because she got medications from an ER visit, and this went against Dr. Donohue's policy. She's had no previous injections for her pain. She's had PT which was not beneficial for her pain. She has not undergone pain related counseling or hypnosis. She has tried acupuncture by Dr. Gume Cantu, and it was beneficial for her. She has tried herbal therapies, biofeedback, TENS unit, and a chiropractor that was Dr. Gume Cantu as well. It was beneficial for her. Pertinent medical history includes arthritis, asthma, migraines, hypertension, rheumatoid arthritis, and hypogammaglobulinemia. She has an EMG that shows a left-sided L5 radiculopathy and a right-sided S1 radiculopathy. Pain Details Pain Location Low back, bilateral legs an d feet Quality sharp,stabbing, dull /ache, pins/needles, throbbing, burn/tingle, numb Severity of pain at its worst 9/10 Severity of pain at its best 4/10 Severity of average pain 7/10 Severity of pain on medication 10-Medi cations prescribed by Dr. Baldwin When did you last take your pain medicine 9 am today Medication Details Do you have a lock b ox or safe place for medication away from minors and/or others? Yes Do you have any leftover pain medication building up at your house? No Do you understand that pain medication c an be addicting and can cause overdose? Yes Do you feel you can REDUCE the amount of medication you take today? No Opioid Assessment Tools Last Urine Drug Screen 07/2024 Confirmation [place] Prescription Monitoring Program PDMP Reviewed Progress Notes * Eri SMITHYannB:1970 ( 55 yo F)Acc No.[id number]:02/01/2025 Progress Notes Patient: Cathi Perez Provider: GEOVANNA Grove :1970 A ge:54 Y S ex:Female Date:02/01/2025 Address:[address] [place], [place] [id number] Pcp:Nir Paulson MD Subjective: * Chief Complaints: * 6 weeks f/u GOLD RECLAIMER * HPI: P ain Details: Pain Location L ow back, bilateral legs and feet. Quality s harp,stabbing, dull/ache, pins/needles, throbbing, burn/tingle, numb. Severity of pain at its worst 9 /10. Severity of pain at its best 4 /10. Severity of pain on medication -Medications prescribed by Dr. Baldwin. Severity of average pain 7 /10. When did you last take your pain medicine 9 am today. M edication Details: Do you have a lock box or safe place for medication away from minors and/or others? Y es. Do you have any leftover pain medication building up at your house? N o. Do you understand that pain medication can be addicting and can cause overdose? Y es. Do you feel you can REDUCE the amount of medication you take today? N o. O pioid Assessment Tools: Last Urine Drug Screen 1 09/2023 Confirmation. [place] Prescription Monitoring Program P TINA Reviewed.? Diana devi Note: Patient presents today for reevaluation. - - - - - - - - - - - - - - - - - - - - - - - - - - - - - - - - - - - - - - - - - Last UDS Confirmation: n/a, no controlled substances Consent for chronic opioid therapy/clinic policies: 1 CÉSAR: 54% 08/22/24 SOAPP-R: 8 Physical Therapy: yes, dates: Fall 2023 Bowel/bladder incontinence - d enies - - - - - - - - - - - - - - - - - - - - - - - - - - - - - - - - - - - - - - - - -. Interventions: 09/20/2024 c audal DELFINO L4-S1 TLIF on 09/07/22 Dr. Womack Pertinent Imaging: LS MRI in [facility] at [place] The EMG/NCV study shows a chronic right S1 radiculopathy and a chronic left L5 radiculopathy. Original HPI: Patient presents today to my clinic to [facility]. She is being referred by Dr. Womack, her neurosurgeon. She has low back and posterior leg pain ongoing multiple years with no inciting event. Pain level is 9/10 at its worst, 4/10 at its least, and average is 6/10. Pain right now is 7/10. P ain quality is deep, sharp, tender, aching, and numb. It is continuous. Worsening factors include sitting, standing, walking, lifting, housework, increased activity, bending, and twsiting. Relieving factors include sitting, standing, walking, hot pack, massage, rest, and medications. Associated symptoms include nausea, vomiting, weakness, falling, frustration, insomnia, and numbness. No pertinent mental health history. She previously saw Dr. Donohue who is an ER physician in [place], [place]. She got dismissed from that clinic because she got medications from an ER visit, and this went against Dr. Donohue's policy. She's had no previous injections for her pain. She's had PT which was not beneficial for her pain. She has not undergone pain related counseling or h ypnosis. She has tried acupuncture by Dr. Gume Cantu, and it was beneficial for her. She has tried herbal therapies, biofeedback, TENS unit, and a chiropractor that was Dr. Gume Pepe as well. It was beneficial for her. Pertinent medical history includes arthritis, asthma, migraines, hypertension, rheumatoid arthritis, and hypogammaglobulinemia. She has an EMG that shows a left-sided L5 radiculopathy and a right-sided S1 radiculopathy. Assessment: * Assessment: 1. C hronic pain syndrome - G89.4 (Primary) 2 . R adiculopathy, lumbosacral region - M54.17 3 . S elida stenosis, lumbar region with neurogenic claudication - M48.062 4 . C hronic prescription opiate use - Z79.891 Billing Information: * Procedure Codes: Care Plan Details* * Electronic signature of Meagan Wright APRN on 08/08/2025 at 08:08 PM CONTACT LENS CURVE GRINDER Sign off status: Pending * Provider: Gio Wright NP-Charly Date: 0 02/01/2025 Generated for Rahat beckford/Destiny/Shamaritting on: 1 10/09/2024 08:08 PM CONTACT LENS CURVE GRINDER
--- OUTSIDE RECORDS SUMMARY | 2025-08-06 16:14 | XMS_ITS | Encounter Summary ---
Author Organization [facility] Address [address] [place] [address] Care Team Providers Care Dry Starch Supervisor Name Role Phone Nir Paulson MD Primary Care Provider [phone] Reason for Referral * MRI (Routine) - Closed Specialty Diagnoses / Procedures Referred By Donaldac t Referred To Contact Radiology Diagnoses Myelopathy ([facility]) Procedures MRI CERVICAL WO CONTRAST Martínez Han MD [address] [place] [address] Phone: tel: fax: [facility] [address] [address] Phone: tel: fax: Referral ID Status Reason Start Date Expiration Date Visits Re quested Visits Authorized [id number] Closed 07/30/2025 08/29/2025 1 1 MENTATION SUPERVISOR Reason for Visit * MRI (Routine) - Closed Specialty Diagnoses / Procedures Referred By Contac t Referred To Contact Radiology Diagnoses Myelopathy ([facility]) Procedures MRI CERVICAL WO CONTRAST Martínez Han MD [address] [place] [address] Phone: tel: fax: [facility] [address] [place] [address] Phone: tel: fax: Referral ID Status Reason Start Date Expiration Date Visits Re quested Visits Authorized [id number] Closed 07/30/2025 08/29/2025 1 1 Encounter Details Date Type Department Care Team (Latest Contact Info) Description 08/06/2025 4:14 PM DOCUMENTATION SUPERVISOR - 08/06/2025 11:59 PM DOCUMENTATION SUPERVISOR Hospital Encounter [facility] [address] [place] [address] Martínez Han MD [address] [place] [address] Arrived Discharge Disposition: Home or Self Care Social [...] worry about transportation for future doctor visits, pickle processor medication, etc.? No 2024 Housing Stability Answer [...] on file Legal Sex Female 3:40 AM DOCUMENTATION SUPERVISOR Gender Identity Not on file Sexual Orientation Not on file documented as of this encounter Medications at Time of Discharge naproxen (NAPROSYN) 500 mg tablet TAKE 1 TABLET BY MOUTH TWICE A DAY WITH MEALS 60 Tablet 1 08/01/2025 lidocaine (LIDODERM) 5 % Adhesive Patch, MedicatedIndicati ons:Rib pain on left side APPLY 1 PATCH TO AFFECTED AREA EVERY 24 HOURS. 30 Patch 1 07/30/2025 True Metrix Glucose Meter USE TO CHECK BLOOD SUGARS 3 TIMES DAILY 07/10/2025 immun glob G,IgG,-pro-IgA 0-50 (Hizentra) 10 gram/50 mL (20 %) Solution as directed Subcutaneous TRUEplus Lancets 33 gauge USE TO CHECK BLOOD SUGARS 3 TIMES DIALY 07/10/2025 benzonatate (TESSALON) 100 mg capsule Take 1 Capsule (100 mg) by mouth 3 times daily as needed for Cough. 90 Capsule 1 07/30/2025 promethazine (PHENERGAN) 25 mg tabletIndications :Nausea TAKE 1 TABLET BY MOUTH EVERY 6 HOURS NEEDED FOR NAUSEA AND VOMITING 90 Tablet 1 07/26/2025 insulin glargine (Lantus Solostar U-100 Insulin) 100 unit/mL pen syringeIndication s:Uncontrolled type 2 diabetes mellitus with hyperglycemia, with long-term current use of insulin ([facility]) Inject 30 Units by subcutaneous injection daily with breakfast. 15 mL 1 07/23/2025 Insulin [place], Disposable, (BD Ultra-Fine Mini Pen Needle) 31 gauge x 3/16 NeedleIndications :Uncontrolled type 2 diabetes mellitus with hyperglycemia, with long-term current use of insulin ([facility]) Use to inject insulin once a day 100 Each 1 07/23/2025 oxygen home deliveryIndicatio ns:Shortness of breath Home Oxygen Concentrator yes at 0 L/M Rest, 2 L/M Activity, 2 L/M Sleep, Delivery Device: Nasal Cannula Portability: yes, 0 L/M Rest, 2 L/M Activity, May provide device best for patient needs(E system,home fill, conserving device) Length of Need: 99 months 1 Each 07/20/2025 portable oxygenIndications :Shortness of breath Face to Face completed within 30 days: yes Length of Need: 99 months By: Nasal Cannula With Activity at 2 L/min. 1 Each 07/20/2025 Blood-Glucose Meter KitIndications:Co ntrolled type 2 diabetes mellitus without complication, without long-term current use of insulin ([facility]) Use to check blood sugars 3 times daily 1 Each 07/10/2025 lancetsIndication s:Controlled type 2 diabetes mellitus without complication, without long-term current use of insulin ([facility]) Use to check blood sugars 3 times dialy 100 Each 07/10/2025 levalbuterol (XOPENEX) 0.63 mg/3 mL Solution for NebulizationIndic ations:Moderate persistent asthma without complication,Mild intermittent asthma, unspecified whether complicated USE 1 VIAL PER NEBULIZER EVERY 6-8 HOURS NEEDED FOR SHORTNESS OF BREATH OR WHEEZING 90 mL 5 07/04/2025 tiotropium (Spiriva Respimat) 1.25 mcg/actuation Mist TAKE 2 PUFFS BY MOUTH DAILY DURING HARDER ASTHMA SEASONS NEEDED FOR RESPIRATORY INFECTIONS 4 Gram 11 07/03/2025 mometasone-formot judith (Dulera) 200-5 mcg/actuation inhaler TAKE 2 PUFFS BY MOUTH 2 TIMES DAILY. 13 Gram 11 07/03/2025 predniSONE (DELTASONE) 5 mg tablet TAKE 1 AND ONE HALF TABLETS BY MOUTH EVERY DAY FOR 30 DAYS 06/29/2025 Hizentra 4 gram/20 mL (20 %) Syringe 05/28/2025 nebulizerIndicati ons:Severe persistent asthma with acute exacerbation ([facility]) Length of need 99 months Nebulizer with compressor, Kit: Disposable Nebulizer Kit, 2 per month, filters , areosol mask: Yes. Name of Medication: Levalbuterol 1 Each 06/19/2025 hydrocortisone (CORTEF) 10 mg tablet Take 1 Tablet (10 mg) by mouth 2 times daily. 180 Tablet 1 06/12/2025 losartan (COZAAR) 100 mg tabletIndications :Benign hypertension TAKE 1 TABLET BY MOUTH EVERY DAY 100 Tablet 1 06/06/2025 methocarbamoL (ROBAXIN) 750 mg tabletIndications :Seronegative rheumatoid arthritis ([facility]) TAKE 1-2 TABLETS (750-1,500 MG) BY MOUTH 3 TIMES DAILY 600 Tablet 1 06/06/2025 metoprolol succinate (TOPROL XL) 25 mg Extended Release 24 hour tabletIndications :Benign hypertension TAKE 1 TABLET (25 MG) BY MOUTH DAILY. TAKE WITH 50 MG TABLET FOR 75 MG DOSE TOTAL 100 Tablet 1 06/06/2025 metoprolol succinate (TOPROL XL) 50 mg Extended Release 24 hour tabletIndications :Benign hypertension TAKE 1 TABLET BY MOUTH DAILY. TAKE WITH 25 MG TABLET FOR 75 MG DOSE TOTAL 100 Tablet 1 06/06/2025 morphine (MS CONTIN) 60 mg Controlled Release tablet TAKE 1 TABLET BY MOUTH ONCE EVERY 12-24 HOURS FOR EXTENDED PAIN RELIEF 05/16/2025 predniSONE (DELTASONE) 10 mg tabletIndications :Rib pain on left side Take 4 tablets for 3 days then 3 tablets for 3 days then 2 tablets for 3 days and 1 tablet for 3 days 30 Tablet 05/30/2025 levalbuterol HFA (XOPENEX HFA) 45 mcg/Actuation HFA Aerosol InhalerIndication s:Moderate persistent asthma without complication Take 1-2 Puffs by inhalation every 4 hours as needed for Shortness of Breath. 15 Gram 1 05/18/2025 metoprolol tartrate (LOPRESSOR) 25 mg tabletIndications :Chronic migraine without aura, intractable, without status migrainosus TAKE 1 TABLET BY MOUTH EVERY DAY NEEDED FOR MIGRAINE 30 Tablet 6 05/07/2025 mupirocin (BACTROBAN) 2 % OintmentIndicatio ns:Skin ulcer of toe of left foot, limited to breakdown of skin (CMS/HCC) Apply to affected area daily. 15 Gram 04/17/2025 spironolactone (ALDACTONE) 50 mg tabletIndications :Benign hypertension Take 1 Tablet (50 mg) by mouth 2 times daily. 200 Tablet 3 03/27/2025 amLODIPine (NORVASC) 10 mg tabletIndications :HTN (hypertension), benign Take 1 Tablet (10 mg) by mouth daily. 90 Tablet 3 09/13/2024 metFORMIN (GLUCOPHAGE) 500 mg tabletIndications :Controlled type 2 diabetes mellitus without complication, without long-term current use of insulin (CMS/HCC) Take 1 Tablet (500 mg) by mouth 2 times daily with meals. 180 Tablet 06/23/2024 Cholecalciferol, Vitamin D3, (VITAMIN D3) 10 mcg (400 unit) capsule Take 50 mcg by mouth daily. 06/17/2020 EpiPen 2-Rudy 0.3 mg/0.3 mL Auto-Injector TURMERIC ORAL Turmeric NITRIC ACID, BULK, MISC as directed HALLIE, BULK, MISC as directed famotidine (PEPCID) 40 mg tabletIndications :Gastroesophageal reflux disease without esophagitis TAKE 1 TABLET(40 MG) BY MOUTH TWICE DAILY 180 Tablet 1 06/15/2022 cetirizine (ZyrTEC) 10 mg tablet Take 30 mg by mouth acetaminophen (TYLENOL) 500 mg tablet 1-2 tabs fluticasone propionate (FLONASE) 50 mcg/spray [place], Suspension nasal inhaler SHAKE LIQUID AND USE 1 TO 2 SPRAYS IN EACH NOSTRIL DAILY 16 Gram 06/18/2021 multivitamin (DAILY-ART) tablet Take 1 Tablet by mouth daily. levocetirizine (XYZAL) 5 mg tablet Take 5 mg by mouth late in the day. 01/13/2021 doxycycline hyclate (VIBRAMYCIN) 100 mg tablet Take 1 Tablet by mouth 2 times daily. 06/29/2025 furosemide (Lasix) 20 mg tabletIndications :Bilateral edema of lower extremity Take 1 Tablet (20 mg) by mouth 1 time daily as needed (swelling). 90 Tablet 2 06/06/2025 EnbreL 50 mg/mL (1 mL) Syringe INJECT ONE syringe UNDER THE SKIN EVERY SEVEN DAYS 03/06/2025 cloNIDine HCL (CATAPRES) 0.1 mg tabletIndications :HTN (hypertension), benign TAKE 1 TABLET BY MOUTH IF BP IS >170/100 ONLY NEEDED 20 Tablet 01/16/2025 traMADol (ULTRAM) 50 mg tablet take 1 tablet by mouth three times daily as needed for pain 12/11/2024 oxyCODONE (ROXICODONE) 10 mg tablet TAKE ONE TABLET BY MOUTH TWICE DAILY FOR breakthrough pain 05/17/2024 morphine (MS CONTIN) 30 mg Controlled Release tablet TAKE ONE TABLET BY MOUTH TWICE DAILY FOR EXTENDED PAIN RELIEF 12/21/2023 azelastine (ASTELIN) 137 mcg/actuation nasal spray USE 1 TO 2 SPRAYS IN EACH NOSTRIL EVERY 12 HOURS NEEDED FOR CONGESTION 30 mL 5 07/24/2022 blood sugar diagnostic (Blood Glucose Test) StripIndications: Controlled type 2 diabetes mellitus without complication, without long-term current use of insulin ([facility]) Use to check blood sugars 3 times daily 100 Each 07/10/2025 5 conjugated estrogens (Premarin) 0.625 mg/gram vaginal creamIndications: Post-menopausal INSERT 0.5 GRAM VAGINALLY 2 TIMES A WEEK 30 Gram 11 08/02/2024 5 documented as of this encounter Plan of Treatment Upcoming Encounters Date Type Department Care Team (Late st Contact Info) Description 08/13/2025 9:15 AM DOCUMENTATION SUPERVISOR Office Visit [facility] Pulmon[facility] [address] [place] [address] Jaymie Figueroa MD [address] [place] [address] 08/27/2025 2:20 PM DOCUMENTATION SUPERVISOR Telephone Check Up [facility] Neurosurgery [address] [place] [address] Martínez Han MD [address] [place] [address] 11/07/2025 2:40 PM CDT Office Visit [facility] Family Medicine [place] [address] [address] Nir Paulson MD [address] [address] 11/13/2025 2:30 PM CDT Office Visit [facility] Endocrinology [facility] [address] [place] [address] Alfred Tracy MD [address] [place] [address] 01/07/2026 1:00 PM CDT Office Visit [facility] [address] [place] [address] Berlin Summers PA [address] [place] [phone] 01/15/2026 8:45 AM CDT Office Visit [facility] - [place] [address] [place] [phone] Martínez Han MD [address] [place] [phone] Yaneth Bass MD [address] [place] [address] 08/13/2026 3:00 PM DOCUMENTATION SUPERVISOR Office Visit [facility] Douglas Zheng Dubois [address] [place] [address] Nanda Mg NP [address] [place] [address] documented as of this encounter Procedures Procedure Name Priority Date/Time Associated Diagnosis Comments MRI CERVICAL WO CONTRAST Routine 08/06/2025 5:24 PM DOCUMENTATION SUPERVISOR Myelopathy (CMS/HCC) documented in this encounter Results * MRI CERVICAL WO CONTRAST (08/06/2025 5:24 PM DOCUMENTATION SUPERVISOR) Anatomical Region Laterality Modality Spine Magnetic Resonan ce 08/06/2025 5:24 PM DOCUMENTATION SUPERVISOR Impressions 08/07/2025 9:10 AM DOCUMENTATION SUPERVISOR IMPRESSION: Please see below. Exam: MRI CERVICAL WO CONTRAST Date/Time of Exam: 08/06/2025 5:24 PM Reason For Exam: other. Diagnosis: Myelopathy (CMS/HCC). Technique: MRI of the cervical spine was performed without the administration of intravenous contrast. Findings: There is a high-grade chronic compression fracture of the T4 vertebral body. There is a mild chronic compression deformity of the T5 vertebral body. There is a relatively high-grade compression fracture of the T6 vertebral body with associated marrow edema, consistent with a recent fracture. There is suspicion for increased signal in the cord at the T4-T6 levels as seen on the sagittal STIR sequence. The axial images do not extend through this region. There is kyphotic deformity of the upper thoracic alignment. There is at least moderate narrowing of the spinal canal at the T4 and T6 levels. No abnormal cord signal within the cervical region. C2-3: Facet arthropathy, otherwise unremarkable. C3-4: Small uncovertebral osteophytes and facet arthropathy, otherwise unremarkable. C4-5: Shallow disc protrusion and facet arthropathy, otherwise unremarkable. C5-6: Disc height loss, broad-based disc protrusion, and uncovertebral osteophytes. Mild spinal stenosis, moderate left foraminal narrowing, and severe right foraminal narrowing. C6-7: Mild facet arthropathy, otherwise unremarkable. C7-T1: Unremarkable. The visualized paraspinous soft tissues are unremarkable. IMPRESSION: 1. Relatively high-grade compression fracture of the T6 vertebral body with marrow edema. This appears consistent with a recent fracture. There are also chronic compression fractures at T4 and T5, with resultant kyphotic deformity of the upper thoracic alignment. 2. At least moderate narrowing of the spinal canal at T4 and T6. Questionable abnormal cord signal at the T4-T6 levels. Consider further evaluation with dedicated thoracic spine MRI and axial images through this region. 3. Cervical degenerative findings are most pronounced at C5-6 where there is mild spinal stenosis and prominent foraminal narrowing. Narrative Procedure Note Andre Cervantes MD - 08/07/2025 IMPRESSION: Please see below. Exam: MRI CERVICAL WO CONTRAST Date/Time of Exam: 08/06/2025 5:24 PM Reason For Exam: other. Diagnosis: Myelopathy (CMS/HCC). Technique: MRI of the cervical spine was performed without the administration of intravenous contrast. Findings: There is a high-grade chronic compression fracture of the T4 vertebral body. There is a mild chronic compression deformity of the T5 vertebral body. There is a relatively high-grade compression fracture of the T6 vertebral body with associated marrow edema, consistent with a recent fracture. There is suspicion for increased signal in the cord at the T4-T6 levels as seen on the sagittal STIR sequence. The axial images do not extend through this region. There is kyphotic deformity of the upper thoracic alignment. There is at least moderate narrowing of the spinal canal at the T4 and T6 levels. No abnormal cord signal within the cervical region. C2-3: Facet arthropathy, otherwise unremarkable. C3-4: Small uncovertebral osteophytes and facet arthropathy, otherwise unremarkable. C4-5: Shallow disc protrusion and facet arthropathy, otherwise unremarkable. C5-6: Disc height loss, broad-based disc protrusion, and uncovertebral osteophytes. Mild spinal stenosis, moderate left foraminal narrowing, and severe right foraminal narrowing. C6-7: Mild facet arthropathy, otherwise unremarkable. C7-T1: Unremarkable. The visualized paraspinous soft tissues are unremarkable. IMPRESSION: 1. Relatively high-grade compression fracture of the T6 vertebral body with marrow edema. This appears consistent with a recent fracture. There are also chronic compression fractures at T4 and T5, with resultant kyphotic deformity of the upper thoracic alignment. 2. At least moderate narrowing of the spinal canal at T4 and T6. Questionable abnormal cord signal at the T4-T6 levels. Consider further evaluation with dedicated thoracic spine MRI and axial images through this region. 3. Cervical degenerative findings are most pronounced at C5-6 where there is mild spinal stenosis and prominent foraminal narrowing. us Martínez Han MD MR ORDERABLES Final Res ult documented in this encounter Visit Diagnoses Diagnosis Myelopathy (CMS/HCC) Unspecified disease of spinal cord documented in this encounter Care Teams Dry Starch Supervisor Relationship Specialty Start Date End Date Nir Paulson MD [address] [place] [address] PCP - General Family Practice 10/13/21 documented as of this encounter
--- OUTSIDE RECORDS SUMMARY | 2025-08-08 15:30 | XMS_ITS | Encounter Summary ---
Author Organization [facility] Address [address] [place] [address] Care Team Providers Care Loan Assistant Name Role Phone Nir Paulson MD Primary Care Provider [phone] Reason for Visit * Reason Comments Well Woman Exam No concerns Encounter Details Date Type Department Care Team (Late st Contact Info) Description 08/08/2025 3:30 PM PAINTER DRUM Office Visit [facility] Douglas Zheng [place] [address] [place] [address] Nanda Mg, CONSTANZA [address] [place] [address] Encounter for gynecological examination with abnormal finding (Primary Dx); Vaginal itching; Post-menopausal Social History Tobacco Use Types Packs/Day Years [...] on file Legal Sex Female 3:40 AM PAINTER DRUM Gender Identity Not on file Sexual Orientation Not on file documented as of this encounter Last Filed Vital Signs Vital Sign Reading Time Taken Comments Blood Pressure 128/78 08/08/2025 3:11 PM PAINTER DRUM Pulse - - Temperature - - Respiratory Rate - - Oxygen Saturation - - Inhaled Oxygen Concentration - - Weight 91.7 kg (202 lb 1.6 oz) 08/08/2025 3:11 P M PAINTER DRUM Height - - Body Mass Index 31.65 07/30/2025 8:45 AM PAINTER DRUM documented in this encounter Progress Notes * Nanda Mg, COOKIE PADDER - 08/08/2025 3:05 PM CST DISABILITY COORDINATOR Clinic Note: Encounter Date: 08/08/2025 Well Woman Exam Subjective: Cathi is a 55 y.o. here for routine well woman exam. No LMP recorded. Patient has had a hysterectomy due to benign reasons.. The patient has the following concerns today: Well woman exam, She states that she recently completed ATB 3-4 days ago and is starting to experience vaginal itching. Denies vaginal discharge and vaginal burning. -History of Hypertension on medication, also has a history of DM2 Menopause age started Well woman exam Symptoms of menopause: none HRT-Premarin vaginal cream 2 times weekly Contraception: Hysterectomy in 2013 Pap History: -Denies hx of abnormal pap smears Last Mammogram: 2023- normal Exercise: none Calcium: takes MVI Family History of Cancer: Ovarian, uterine, breast, or colon? -none Lab Results Component Value Date/Time CHOLTOT 185 01/04/2024 11:41 AM HDL 67 01/04/2024 11:41 AM LDLCALC 85 01/04/2024 11:41 AM TRIGLYCERIDE 253 (H) 01/04/2024 11:41 AM Lab Results Component Value Date/Time HGBA1C 7.3 06/24/2025 12:00 AM Lab Results Component Value Date/Time TSH 0.43 05/16/2025 03:07 PM Obstetric and Gynecologic History OB History Para Term AB Living 5 0 0 0 1 4 SAB IAB Ectopic Multiple Live Births 1 0 0 4 # Outcome Date GA Lbr Florian/2nd Weight Sex Type Anes PTL Lv 5 2005 4 SAB 2004 3 2001 CS-LTranv 2 1995 Vag-Spont 1 1986 Vag-Spont Past Histories: Patient Active Problem List Diagnosis 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 Z79.52 H/O chronic inflammatory arthritis Z87.39 Fibromyalgia M79.7 Seronegative rheumatoid arthritis M06.00 Tendinitis of right rotator cuff M75.81 De Quervain's tenosynovitis, right M65.4 Bilateral carpal tunnel syndrome G56.03 Ovarian cyst, bilateral N83.201, N83.202 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 Tenosynovitis of left foot M65.972 Tailor's bunion of left foot M21.622 Neuroma of second interspace of left foot G57.62 Primary osteoarthritis of both feet M19.071, M19.072 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 Rectocele N81.6 Chronic migraine [id number] Benign hypertension I10 Immunosuppression D84.9 Atopic dermatitis L20.9 Chronic migraine without aura, intractable, without status migrainosus G43.719 Gastroesophageal reflux disease without esophagitis K21.9 Spondylolisthesis of lumbar region M43.16 Lumbosacral spondylosis without myelopathy M47.817 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, T38.0X5A Migraine without status migrainosus, not intractable G43.909 Swelling of right lower extremity M79.89 Hematoma of muscle T14.8XXA Hematoma of thigh, right, initial encounter S70.11XA Traumatic hematoma of buttock S30.0XXA Osteoporosis with current pathological fracture with routine healing M80.00XD Influenza vaccination declined Z28.21 Post-menopausal Z78.0 S/P lumbar fusion Z98.1 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 Severe persistent asthma without complication ([facility]) J45.50 Controlled type 2 diabetes mellitus without complication, without long-term current use of insulin ([facility]) E11.9 Hamstring tear S76.319A 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, 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 Past Medical History: Diagnosis Date Asthma Blood in urine Cyst, thyroid 06/30/2016 Diabetes mellitus ([facility]) 2014 States metformin stopped 11/2017 by PCP Headache(784.0) per pt HTN (hypertension) Inflammatory arthritis Injury of back Arthritis Injury of face and neck age 17 Joint pain Migraines Motion sickness Post-operative nausea and vomiting RA (rheumatoid arthritis) ([facility]) 2010 Past Surgical History: Procedure Laterality Date HX SECTION HX CHOLECYSTECTOMY HX CORE NEEDLE BREAST BIOPSY Left 06/02/2017 sono guided HX HERNIA REPAIR X2 HX HYSTERECTOMY HX LUMBAR SPINE SURGERY 09/07/2022 INSERT MIDLINE IV 12/28/2018 IA ARTHRS AIDED ANT CRUCIATE LIGM RPR/AGMNTJ/RCNSTJ Right 06/13/2014 KNEE ANTERIOR CRUCIATE LIGAMENT REPAIR ARTHROSCOPIC performed by Onel Ross MD at [facility] OR IA ARTHRS KNE SURG W/MENISCECTOMY MED/LAT W/SHVG Right 06/13/2014 KNEE MENISCECTOMY ARTHROSCOPIC performed by Onel Ross MD at [facility] OR IA ARTHRS KNE SURG W/MENISCECTOMY MED/LAT W/SHVG Left 02/06/2015 KNEE MENISCECTOMY ARTHROSCOPIC performed by Onel Ross MD at [facility] OR [place] ARTHRS KNEE ABRASION ARTHRP/HEADEND TECHNICIAN DRLG/MICROFX Left 02/06/2015 KNEE CHONDROPLASTY ARTHROSCOPIC performed by Onel Ross MD at [facility] OR IA ARTHRS KNEE ABRASION ARTHRP/HEADEND TECHNICIAN DRLG/MICROFX Right 06/13/2014 KNEE CHONDROPLASTY ARTHROSCOPIC performed by Onel Ross MD at [facility] OR IA CMBND ANTERPOST COLPORRAPHY W/CYSTO N/A 04/09/2017 POSTERIOR REPAIR performed by Jemima Hernández MD at [facility] ER OR IA COLONOSCOPY FLX DX W/COLLJ SPEC WHEN PFRMD N/A 03/22/2019 COLONOSCOPY performed by Gene Andino MD at [facility] ENDOSCOPY [place] IA CYSTOURETHROSCOPY Bilateral 03/18/2017 CYSTOSCOPY performed by Salvador Baca MD at [facility] MAIN OR IA ESOPHAGOGASTRODUODENOSCOPY TRANSORAL DIAGNOSTIC N/A 11/13/2014 ESOPHAGOGASTRODUODENOSCOPY performed by Byron Richardson MD at [facility]OS[facility] [place] IA EXC B9 LESION MRGN XCP SK TG T/A/L 0.6-1.0 CM Left 02/25/2018 CYST LESION MASS EXCISION performed by Onel Ross MD at [facility] OR IA LAPAROSCOPY COLECTOMY PARTIAL W/ANASTOMOSIS N/A 01/03/2019 SIGMOID COLECTOMY LAPAROSCOPIC performed by Gene Andino MD at [facility] MAIN OR IA LAPS REPAIR HERNIA EXCEPT INCAL/INGUN REDUCIBLE N/A 09/28/2018 HERNIA VENTRAL REPAIR LAPAROSCOPIC incisional with mesh performed by Andre Law MD at [facility] E [place] IA PERINEOPLASTY RPR PERINEUM NONOBSTETRICAL SPX N/A 04/09/2017 PERINEORRHAPHY performed by Jemima Hernández MD at [facility] MAIN OR IA UNLISTED PROCEDURE URINARY SYSTEM Bilateral 03/18/2017 PYELOGRAM RETROGRADE performed by Salvador Baca MD at [facility] ER OR Family History Problem Relation Name Age of Onset Colon Cancer Neg Hx Amblyopia Neg Hx Blindness Neg Hx Glaucoma Neg Hx Macular Degen Neg Hx Strabismus Neg Hx Breast Cancer Neg Hx Ovarian Cancer Neg Hx Hypertension Mother Heart Disease Mother Stroke Mother Sickle Cell Anemia Mother Hypertension Maternal Grandfather Heart Disease Maternal Grandfather Stroke Maternal Grandfather Cancer Paternal Uncle 80 Pancreatic Cancer- See media tab Social History Socioeconomic History Marital status: Spouse name: Not on file Number of children: Not on file Years of education: 12 Highest education level: Not on file Occupational History Not on file Tobacco Use Smoking status: Former Current packs/day: 0.00 Average packs/day: 0.5 packs/day for 15.0 years (7.5 ttl pk-yrs) Types: Cigarettes Start date: 02/01/1981 Quit date: 02/02/1996 Years since quittin.5 Passive exposure: Past Smokeless tobacco: Never Vaping Use Vaping status: Never Used Substance and Sexual Activity Alcohol use: No Drug use: Never Sexual activity: Yes Partners: Male Comment: hysterectomy Other Topics Concern Not on file Social History Narrative Not on file Health-Related Social Needs Food Insecurity: Low Risk (06/01/2025) Food Insecurity Eating less because can't pay for food: No Transportation Needs: Low Risk (06/01/2025) Transportation Needs Worry about transportation for doctor visits / 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 meds: No Domestic Concerns: Not At Risk (06/01/2025) Feeling Safe Patient has indicated abuse: : No Housing Stability: Low Risk (06/01/2025) Housing Stability Struggle to pay rent or mortgage: No Allergies Allergen Reactions Diphenhydramine Hcl Other (See Comments) insomnia Etanercept Unknown Leflunomide Other (See Comments) Lisinopril Other (See Comments) Cough Methotrexate Sodium Other (See Comments) Phentermine Hcl Other (See Comments) Propranolol Other (See Comments) Shakes / tremors all over body Albuterol Rash Certolizumab Pegol Swelling Cyclobenzaprine Nausea and Vomiting Gabapentin Dizziness and Unknown Hydralazine Headache Pregabalin Nausea and Vomiting Outpatient Medications Marked as Taking for the 08/08/25 encounter (Office Visit) with Nanda Mg NP Medication Sig Dispense Refill conjugated estrogens (Premarin) 0.625 mg/gram vaginal cream INSERT 0.5 GRAM VAGINALLY 2 TIMES A WEEK 30 Gram 11 fluconazole (DIFLUCAN) 150 mg tablet Take 1 Tablet (150 mg) by mouth daily for 2 doses. Take one tablet today and repeat in 72hrs 2 Tablet 0 blood sugar diagnostic (True Metrix Glucose Test Strip) Strip USE TO CHECK BLOOD SUGARS 3 TIMES DAILY 100 Strip 11 naproxen (NAPROSYN) 500 mg tablet TAKE 1 TABLET BY MOUTH TWICE A DAY WITH MEALS 60 Tablet 1 lidocaine (LIDODERM) 5 % Adhesive Patch, Medicated APPLY 1 PATCH TO AFFECTED AREA EVERY 24 HOURS. 30 Patch 1 True Metrix Glucose Meter USE TO CHECK BLOOD SUGARS 3 TIMES DAILY immun glob G,IgG,-pro-IgA 0-50 (Hizentra) 10 gram/50 mL (20 %) Solution as directed Subcutaneous TRUEplus Lancets 33 gauge USE TO CHECK BLOOD SUGARS 3 TIMES DIALY benzonatate (TESSALON) 100 mg capsule Take 1 Capsule (100 mg) by mouth 3 times daily as needed for Cough. 90 Capsule 1 promethazine (PHENERGAN) 25 mg tablet TAKE 1 TABLET BY MOUTH EVERY 6 HOURS NEEDED FOR NAUSEA ANDVOMITING 90 Tablet 1 insulin glargine (Lantus Solostar U-100 Insulin) 100 unit/mL pen syringe Inject 30 Units by subcutaneous injection daily with breakfast. 15 mL 1 Insulin [place], Disposable, (BD Ultra-Fine Mini Pen Needle) 31 gauge x 3/16 Needle Use to inject insulin once a day 100 Each 1 oxygen home delivery Home Oxygen Concentrator yes at 0 L/M Rest, 2 L/M Activity, 2 L/M Sleep, Delivery Device: Nasal Cannula Portability: yes, 0 L/M Rest, 2 L/M Activity, May provide device best for patient needs(E system,home fill, conserving device) Length of Need: 99 months 1 Each 0 portable oxygen Face to Face completed within 30 days: yes Length of Need: 99 months By: Nasal Cannula With Activity at 2 L/min. 1 Each 0 Blood-Glucose Meter Kit Use to check blood sugars 3 times daily 1 Each 0 lancets Use to check blood sugars 3 times dialy 100 Each 0 levalbuterol (XOPENEX) 0.63 mg/3 mL Solution for Nebulization USE 1 VIAL PER NEBULIZER EVERY 6-8 HOURS NEEDED FOR SHORTNESS OF BREATH OR WHEEZING 90 mL 5 tiotropium (Spiriva Respimat) 1.25 mcg/actuation Mist TAKE 2 PUFFS BY MOUTH DAILY DURING HARDER ASTHMA SEASONS NEEDED FOR RESPIRATORY INFECTIONS 4 Gram 11 mometasone-formoterol (Dulera) 200-5 mcg/actuation inhaler TAKE 2 PUFFS BY MOUTH 2 TIMES DAILY. 13 Gram 11 predniSONE (DELTASONE) 5 mg tablet TAKE 1 AND ONE HALF TABLETS BY MOUTH EVERY DAY FOR 30 DAYS Hizentra 4 gram/20 mL (20 %) Syringe nebulizer Length of need 99 months Nebulizer with compressor, Kit: Disposable Nebulizer Kit, 2 per month, filters , areosol mask: Yes.Name of Medication: Levalbuterol 1 Each 0 hydrocortisone (CORTEF) 10 mg tablet Take 1 Tablet (10 mg) by mouth 2 times daily. 180 Tablet 1 losartan (COZAAR) 100 mg tablet TAKE 1 TABLET BY MOUTH EVERY DAY 100 Tablet 1 methocarbamoL (ROBAXIN) 750 mg tablet TAKE 1-2 TABLETS (750-1,500 MG) BY MOUTH 3 TIMES DAILY 600 Tablet 1 metoprolol succinate (TOPROL XL) 25 mg Extended Release 24 hour tablet TAKE 1 TABLET (25 MG) BY MOUTH DAILY. TAKE WITH 50 MG TABLET FOR 75 MG DOSE TOTAL 100 Tablet 1 metoprolol succinate (TOPROL XL) 50 mg Extended Release 24 hour tablet TAKE 1 TABLET BY MOUTH DAILY. TAKE WITH 25 MG TABLET FOR 75 MG DOSE TOTAL 100 Tablet 1 morphine (MS CONTIN) 60 mg Controlled Release tablet TAKE 1 TABLET BY MOUTH ONCE EVERY 12-24 HOURS FOR EXTENDED PAIN RELIEF predniSONE (DELTASONE) 10 mg tablet Take 4 tablets for 3 days then 3 tablets for 3 days then 2 tablets for 3 days and 1 tablet for 3 days 30 Tablet 0 levalbuterol HFA (XOPENEX HFA) 45 mcg/Actuation HFA Aerosol Inhaler Take 1-2 Puffs by inhalation every 4 hours as needed for Shortness of Breath. 15 Gram 1 metoprolol tartrate (LOPRESSOR) 25 mg tablet TAKE 1 TABLET BY MOUTH EVERY DAY NEEDED FOR MIGRAINE 30 Tablet 6 mupirocin (BACTROBAN) 2 % Ointment Apply to affected area daily. 15 Gram 0 spironolactone (ALDACTONE) 50 mg tablet Take 1 Tablet (50 mg) by mouth 2 times daily. 200 Tablet 3 amLODIPine (NORVASC) 10 mg tablet Take 1 Tablet (10 mg) by mouth daily. 90 Tablet 3 metFORMIN (GLUCOPHAGE) 500 mg tablet Take 1 Tablet (500 mg) by mouth 2 times daily with meals. 180 Tablet 0 Cholecalciferol, Vitamin D3, (VITAMIN D3) 10 mcg (400 unit) capsule Take 50 mcg by mouth daily. EpiPen 2-Rudy 0.3 mg/0.3 mL Auto-Injector TURMERIC ORAL Turmeric NITRIC ACID, BULK, MISC as directed HALLIE, BULK, MISC as directed famotidine (PEPCID) 40 mg tablet TAKE 1 TABLET(40 MG) BY MOUTH TWICE DAILY 180 Tablet 1 cetirizine (ZyrTEC) 10 mg tablet Take 30 mg by mouth acetaminophen (TYLENOL) 500 mg tablet 1-2 tabs fluticasone propionate (FLONASE) 50 mcg/spray [place], Suspension nasal inhaler SHAKE LIQUID AND USE 1 TO 2 SPRAYS IN EACH NOSTRIL DAILY 16 Gram 0 multivitamin (DAILY-ART) tablet Take 1 Tablet by mouth daily. levocetirizine (XYZAL) 5 mg tablet Take 5 mg by mouth late in the day. Review of Systems General: Overall appearance is normal CV: Negative for chest pain, racing heart rate, or palpitations LUNG: Negative for difficulty breathing or coughing ABD: Negative for pain/tenderness EXT: no edema, no calf tenderness SKIN: Negative for ecchymosis, rashes, or visible abnormalities : Negative for itching, burning, or dysuria Objective: BP 128/78 (BP Location: Right arm, Patient Position (BP): Sitting) Wt 91.7 kg (202 lb 1.6 oz) No BMI 31.65 kg/m?? Body mass index is 31.65 kg/m??. Physical: GEN: alert, cooperative. Well-appearing on today's exam HEENT: head normocephalic without obvious deformity. Trachea midline. THYROID: normal to inspection CV: regular rate and rhythm LUNG: clear to auscultation bilaterally ABDOMEN: Soft, non-tender. No masses palpable. EXT: no edema SKIN: Skin color and texture normal. No rashes or lesions BREAST EXAM: breasts appear normal, no suspicious masses, no skin or nipple changes or axillary nodes PELVIC EXAM: VULVA: normal appearing vulva with no masses, tenderness or lesions, URETHRAL MEATUS: Normal appearing meatus BLADDER: normal VAGINA: normal appearing vagina with normal color and discharge, no lesions CERVIX: Surgically absent UTERUS:Surgically absent ADNEXA: normal adnexa in size, nontender and no masses, difficult exam due to body habitus Rectum: No hemorrhoids, lesions or visual prolapse 55 y.o. Diagnosis: Encounter Diagnoses Name Primary? Encounter for gynecological examination with abnormal finding Yes Vaginal itching Post-menopausal Assessment/Plan: S/P posterior colporrhaphy Continue use of vaginal premarin cream twice weekly. 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 -Recommend self-breast awareness -TSH: managed by PCP -Diabetes Screening(age>40, q 3 years)-HbA1c/fasting glucose: managed by PCP -Screening Colonoscopy: Discuss with PCP. -Calcium 1200mg daily, Vitamin D 600 IU daily recommended -Exercise-30 minutes of moderate aerobic activity recommended 5 days per week. -Return annually for WWE and prn concerns. Nanda Mg NP TER DRUM documented in this encounter Plan of Treatment Upcoming Encounters Date Type Department Care Team (Late st Contact Info) Description 08/13/2025 9:15 AM PAINTER DRUM Office Visit [facility] Pulmonology [address] [place] [address] Jaymie Figueroa MD [address] [place] [address] 08/27/2025 2:20 PM PAINTER DRUM Telephone Check Up [facility] Neurosurgery [address] [place] [address] Martínez Han MD [address] [place] [address] 11/07/2025 2:40 PM CDT Office Visit [facility] Family Medicine [place] [address] [address] Nir Paulson MD [address] [address] 11/13/2025 2:30 PM CDT Office Visit [facility] Endocrin[facility] [address] [place] [address] Alfred Tracy MD [address] [place] [address] 01/07/2026 1:00 PM CDT Office Visit [facility] [address] [place] [address] Berlin Summers PA [address] [place] [id number] 01/15/2026 8:45 AM CDT Office Visit [facility] Neurology - [place] [address] [place] [address] Martínez Han MD [address] [place] [address] Yaneth Bass MD [address] [place] [address] 08/13/2026 3:00 PM PAINTER DRUM Office Visit [facility] Douglas Zheng [place] [address] [place] [address] Nanda Mg NP [address] [place] [address] documented as of this encounter Visit Diagnoses Diagnosis Encounter for gynecological examination with abnormal finding- Primary Routine gynecological examination Vaginal itching Pruritus of genital organs Post-menopausal Asymptomatic postmenopausal status (age-related) (natural) documented in this encounter Care Teams Loan Assistant Relationship Specialty Start Date End Date Nir Paulson MD [address] [facility] [place] [address] PCP - General Family Practice 10/13/21 documented as of this encounter
--- OUTSIDE RECORDS SUMMARY | 2025-08-08 20:09 | XMS_ITS | Encounter Summary ---
Author Organization [facility] Address [address] [place] [address] Care Team Providers Care Information Security Associate Name Role Phone Nir Paulson MD Primary Care Provider +1 [phone] Encounter Details Date Type Department Care Team (Late st Contact Info) Description 05/29/2025 Lab Requisition [facility] [place] [address] [place] [address] Lima Perez NP [address] [place] [address] Chest pain, unspecified; Localized edema [...] worry about transportation for future doctor visits, lemon picker medication, etc.? No 2024 Housing Stability [...] on file Legal Sex Female 3:40 AM COSMETIC SALES CONSULTANT Gender Identity Not on file Sexual Orientation Not on file documented as of this encounter Plan of Treatment Upcoming Encounters Date Type Department Care Team (Late st Contact Info) Description 08/13/2025 9:15 AM COSMETIC SALES CONSULTANT Office Visit [facility] Pulmonology [address] [place] [address] Jaymie Figueroa MD [address] [place] [address] 08/27/2025 2:20 PM COSMETIC SALES CONSULTANT Telephone Check Up [facility] Neurosurgery [address] [place] [address] Martínez Han MD [address] [place] [address] 11/07/2025 2:40 PM CDT Office Visit [facility] Family Medicine [place] [address] [address] Nir Paulson MD [address] [address] 11/13/2025 2:30 PM CDT Office Visit [facility] End[facility]in[facility] [address] [place] [address] Alfred Tracy MD [address] [place] [address] 01/07/2026 1:00 PM CDT Office Visit [facility] [address] [place] [address] Berlin Summers PA [address] [place] [address] 01/15/2026 8:45 AM CDT Office Visit [facility] Neurology - [place] [address] [place] [address] Martínez Han MD [address] [place] [address] Yaneth Bass MD [address] [place] [address] 08/13/2026 3:00 PM COSMETIC SALES CONSULTANT Office Visit [facility] HANSTamaraChriss Zheng [place] [address] [place] [address] Nanda Mg, CONSTANZA [address] [place] [phone] documented as of this encounter Procedures Procedure [...] 4.0 - 10.0 K/uL 05/29/2025 4:41 PM [facility] RBC 4.16 3.93 - 5.22 M/uL 05/29/2025 4:41 PM [facility] HEMOGLOBIN 12.7 11.2 - 15.7 g/dL 05/29/2025 4:41 PM [facility] HEMATOCRIT 37.8 34.1 - 44.9 % 05/29/2025 4:41 PM [facility] MCV 90.9 79.4 - 94.8 fL 05/29/2025 4:41 PM [facility] MCH 30.5 25.6 - 32.2 pg 05/29/2025 4:41 PM [facility] MCHC 33.6 32.2 - 35.5 g/dL 05/29/2025 4:41 PM [facility] RDW 13.3 11.0 - 14.5 % 05/29/2025 4:41 PM [facility] RDW-STDEV 44.1 36.9 - 56.9 fL 05/29/2025 4:41 PM [facility] PLATELETS 388(H) 163 - 337 K/uL 05/29/2025 4:41 PM [facility] MPV 8.4(L) 10.0 - 14.8 fL 05/29/2025 4:41 PM [facility] NEUTROPHILS 82(H) 34 - 71 % 05/29/2025 4:41 PM [facility] LYMPHOCYTES 11(L) 19 - 52 % 05/29/2025 4:41 PM [facility] MONOCYTES 5 5 - 13 % 05/29/2025 4:41 PM [facility] EOSINOPHILS 0(L) 1 - 6 % 05/29/2025 4:41 PM [facility] BASOPHILS 1 0 - 1 % 05/29/2025 4:41 PM CDT [facility] IMMATURE GRANULOCYTES 1 % 05/29/2025 4:41 PM CDT [facility] NEUTROPHIL ABSOLUTE 6.87(H) 1.56 - 6.13 K/uL 05/29/2025 4:41 PM CDT [facility] LYMPHOCYTE ABSOLUTE 0.92(L) 1.20 - 3.40 K/uL 05/29/2025 4:41 PM CDT [facility] MONOCYTE ABSOLUTE 0.45(H) 0.24 - 0.36 K/uL 05/29/2025 4:41 PM CDT [facility] EOSINOPHIL ABSOLUTE 0.00(L) 0.04 - 0.36 K/uL 05/29/2025 4:41 PM CDT [facility] BASOPHILS ABSOLUTE 0.04 0.01 - 0.08 K/uL 05/29/2025 4:41 PM CDT [facility] IMMATURE GRANULOCYTES ABSOLUTE 0.09 K/uL 05/29/2025 4:41 PM CDT [facility] Blood BLOOD SPECIMEN / Unknown Collection / Unknown 05/29/2025 4:35 PM CDT 05/29/2025 4:38 PM CDT us Lima Chris ANIMAL PARK CODE ENFORCEMENT OFFICER HEMATOLOGY ORDERABLES Final Re sult [facility] CLIA # [id number] [address] [place] [address] * (ABNORMAL) C-REACTIVE PROTEIN (05/29/2025 4:35 PM CDT) CRP 7.7(H) <5.0 mg/L 05/29/2025 4:54 PM CDT [facility] Blood BLOOD SPECIMEN / Unknown Collection / Unknown 05/29/2025 4:35 PM CDT 05/29/2025 4:38 PM CDT us Lima Trilla ANIMAL PARK CODE ENFORCEMENT OFFICER CHEMISTRY ORDERABLES Final Res ult [facility] CLIA # [id number] [address] [address] * (ABNORMAL) COMPREHENSIVE METABOLIC PANEL (05/29/2025 4:35 PM CDT) SODIUM 140 136 - 145 mmol/L 05/29/2025 4:54 PM CDT [facility] POTASSIUM 4.2 3.5 - 5.1 mmol/L 05/29/2025 4:54 PM [facility] CHLORIDE 100 98 - 107 mmol/L 05/29/2025 4:54 PM [facility] CO2 25 22 - 29 mmol/L 05/29/2025 4:54 PM [facility] CALCIUM 10.1(H) 8.6 - 10.0 mg/dL 05/29/2025 4:54 PM [facility] BUN 16 6 - 20 mg/dL 05/29/2025 4:54 PM [facility] CREATININE 0.81 0.51 - 0.95 mg/dL 05/29/2025 4:54 PM [facility] GLUCOSE 153(H) 74 - 99 mg/dL 05/29/2025 4:54 PM [facility] TOTAL PROTEIN 7.0 6.6 - 8.7 g/dL 05/29/2025 4:54 PM [facility] ALBUMIN 4.3 3.5 - 5.2 g/dL 05/29/2025 4:54 PM [facility] BILIRUBIN TOTAL 0.2 0.0 - 1.2 mg/dL 05/29/2025 4:54 PM [facility] ALKALINE PHOSPHATASE 124(H) 35 - 104 U/L 05/29/2025 4:54 PM [facility] AST 31 0 - 35 U/L 05/29/2025 4:54 PM [facility] ALT 45(H) 0 - 35 U/L 05/29/2025 4:54 PM [facility] GFR >60 >=60 mL/min/1.7 3 sq meter 05/29/2025 4:54 PM CDT [facility] Comment:eGFR calculated with 2020 CKD-EPI equation. Vegetarian diet, extremely high or low muscle mass, and may affect results. Cystatin C with Glomerular Filtration Rate is a suitable alternative for these patients. ANION GAP 15 5 - 20 mmol/L 05/29/2025 4:54 PM CDT [facility] Blood BLOOD SPECIMEN / Unknown Collection / Unknown 05/29/2025 4:35 PM CDT 05/29/2025 4:38 PM CDT us Lima Trilla ANIMAL PARK CODE ENFORCEMENT OFFICER CHEMISTRY ORDERABLES Final Res ult Performing Organization Address City/[facility]/ZIP Co de Phone Number [facility] CLIA # [id number] [address] [place] [address] * (ABNORMAL) BRAIN NATRIURETIC PEPTIDE, BNP OR PROBNP (05/29/2025 4:35 PM CDT) PROBNP, N TERMINAL 278(H) 0 - 125 pg/mL 05/29/2025 4:54 PM CDT [facility] Comment: INTERPRETIVE COMMENT based on diagnosis: [...] 05/29/2025 4:38 PM CDT us Lima Chris ANIMAL PARK CODE ENFORCEMENT OFFICER CHEMISTRY ORDERABLES Final Res ult [facility] CLIA # [id number] [address] [address] documented in this encounter Visit Diagnoses Diagnosis Chest pain, unspecified Localized edema Edema documented in this encounter Additional Health Concerns Infection Onset Date Last Indicated Resolved Time R/O Respiratory 06/19/2025 06/20/2025 06/20/2025 6 :41 PM CDT Parainfluenza 06/20/2025 06/20/2025 07/04/2025 10: 21 PM COSMETIC SALES CONSULTANT documented as of this encounter Care Teams Information Security Associate Relationship Specialty Start Date End Date Nir Paulson MD [address] [place] [phone] PCP - General Family Practice 10/13/21 documented as of this encounter
--- OUTSIDE RECORDS SUMMARY | 2025-08-08 20:09 | XMS_ITS | Encounter Summary ---
Author Organization [facility] Address [address] [place] [address] Care Team Providers Care Open Hearth Worker Name Role Phone Veronica Carvajal MD Primary Care Provider [phone]- [phone] Encounter Details Date Type Department Care Team ([facility] st Contact Info) Description 12/17/2017 Ancillary Orders [facility] Pre-Registration [place] CALL TO MAKE APPOINTMENT ONLY [address] [place] [address] Tom Steen Jr., MD [address] [facility] [address] [place] [address] Abnormal mammogram Social History Tobacco Use Types Packs/Day Years Used Date Smoking Tobacco: Former Cigarettes 0.5 12 0 02/02/1984 - 02/02/1996 Smokeless Tobacco: Never Alcohol Use Standard Drinks/Week Comments No 0 (1 standard drink = 0.6 oz pur e alcohol) Comments No Sex and Gender Information Value Date Recorded Sex Assigned at Not on file 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 PATIENT ACCESS MANAGER Gender Identity Not on file Sexual [...] unspecified documented in this encounter Care Teams Open Hearth Worker Relationship Specialty Start Date End Date Veronica Carvajal MD [address] [facility] [address] [place] [address] PCP - General Family Practice 11/20/20 documented as of this encounter
--- OUTSIDE RECORDS SUMMARY | 2025-08-08 20:09 | XMS_ITS | Encounter Summary ---
Author Organization [facility] Address [address] [place] [address] Care Team Providers Care Pickle Maker Name Role Phone Nir Paulson MD Primary Care Provider [phone] Encounter Details Date Type Department Care Team (Late st Contact Info) Description 06/02/2025 Results Follow-Up [facility] Emergency Medicine [address] [facility] [address] [place] [address] Adriana Kauffman, TELE GROUT SEWER LINE REPAIRER [address] [facility] [address] [place] [address] URINE CULTURE Social History Tobacco [...] about transportation for future doctor visits, supervisor opening and picking medication, etc.? No 2024 Housing Stability Answer [...] on file Legal Sex Female 3:40 AM ADULT EDUCATOR Gender Identity Not on file Sexual Orientation Not on file documented as of this encounter Plan of Treatment Upcoming Encounters Date Type Department Care Team (Late st Contact Info) Description 08/13/2025 9:15 AM ADULT EDUCATOR Office Visit [facility] Pulmonology [address] [place] [address] Jaymie Figueroa MD [address] [place] [address] 08/27/2025 2:20 PM ADULT EDUCATOR Telephone Check Up [facility] Neurosurgery [address] [place] [address] Martínez Hna MD [address] [place] [address] 11/07/2025 2:40 PM CDT Office Visit [facility] Family Medicine [place] [address] [address] Nir Paulson MD [address] [address] 11/13/2025 2:30 PM CDT Office Visit [facility] Endocrinology [facility] [address] [place] [address] Alfred Tracy MD [address] [place] [address] 01/07/2026 1:00 PM CDT Office Visit [facility] [address] [place] [address] Berlin Summers PA [address] [place] [address] 01/15/2026 8:45 AM CDT Office Visit [facility] Neurology - [place] [address] [place] [address] Martínez Han MD [address] [place] [address] Yaneth Bass MD [address] [place] [address] 08/13/2026 3:00 PM ADULT EDUCATOR Office Visit [facility] [place] [address] [place] [address] Nanda Mg, CONSTANZA [address] [place] [address] documented as of this encounter Visit Diagnoses Not on filedocumented in this encounter Additional Health Concerns Infection Onset Date Last Indicated Resolved Time R/O Respiratory 06/19/2025 06/20/2025 06/20/2025 6 :41 PM CDT Parainfluenza 06/20/2025 06/20/2025 07/04/2025 10: 21 PM ADULT EDUCATOR documented as of this encounter Care Teams Pickle Maker Relationship Specialty Start Date End Date Nir Paulson MD [address] [place] [address] PCP - General Family Practice 10/13/21 documented as of this encounter
--- OUTSIDE RECORDS SUMMARY | 2025-08-08 20:09 | XMS_ITS | Encounter Summary ---
Author Organization [facility] Address [address] [place] [address] Care Team Providers Care Waist Pleater Name Role Phone Veronica Carvajal MD Primary Care Provider [phone]- [phone] Reason for Referral * Radiology Services (Routine) - Closed Specialty Diagnoses / Procedures Referred By Contac t Referred To Contact Radiology Diagnoses Abnormal mammogram Procedures MAMMO DIAGNOSTIC BILATERAL W OR WO CAD Nir Paulson MD [address] [address] Phone: tel: fax: [facility] [address] [address] Phone: tel: fax: Referral ID Status Reason Start Date Expiration Date V isits Requested Visits Authorized [id number] Closed SGF [facility] TO SCHEDULE (SGF) 08/03/2018 09/03/2019 1 1 ISSIONER OF OFFICIALS Encounter Details Date Type Department Care Team (Late st Contact Info) Description 08/03/2018 Ancillary Orders [facility] Pre-Registration [place] CALL TO MAKE APPOINTMENT ONLY [address] [place] [address] Nir Paulson MD [address] [address] Abnormal mammogram Social History Tobacco Use Types Packs/Day Years Used Date Smoking Tobacco: Former Cigarettes 0.5 12 0 02/02/1984 - 02/02/1996 Smokeless Tobacco: Never Alcohol Use Standard Drinks/Week Comments No 0 (1 standard drink = 0.6 oz pur e alcohol) Comments No Sex and Gender Information Value Date Recorded Sex Assigned at Not on file 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 COMMISSIONER OF OFFICIALS Gender Identity Not on file Sexual Orientation [...] W OR WO CAD (10/18/2018 3:42 PM COMMISSIONER OF OFFICIALS) Anatomical Region Laterality Modality Breast Bilateral Mammography 10/18/2018 3:42 PM COMMISSIONER OF OFFICIALS Impressions 10/20/2018 5:59 AM COMMISSIONER OF OFFICIALS : No mammographic evidence of malignancy. Stable postbiopsy changes of the left breast. Recommend returning to bilateral annual screening mammography in one year. The patient was given verbal and written results/recommendations. BI-RADS ASSESSMENT: 2 - Benign RECOMMENDATION: Bilateral annual screening mammography [id number] Narrative 10/20/2018 5:59 AM COMMISSIONER OF OFFICIALS EXAM: MAMMO DIAGNOSTIC BILATERAL W OR WO [...] unspecified documented in this encounter Care Teams Waist Pleater Relationship Specialty Start Date End Date Veronica Carvajal MD [address] [phone] PCP - General Family Practice 11/20/20 documented as of this encounter
--- OUTSIDE RECORDS SUMMARY | 2025-08-08 20:09 | XMS_ITS | Clinical Summary ---
Author Organization [facility] Address [address] [place] [address] Care Team Providers Care Instructional Resource Teacher Name Role Phone Veronica Carvajal MD [...] Comment) (when up and active). Provide aspen Butler 631 lumbar brace Suggested vendors: [phone] [employer]ban [phone] Bach 1 Each 0 Active Dulera 200-5 mcg/actuation inhaler INHALE 2 PUFFS BY MOUTH TWICE DAILY 13 Gram 5 1 Active fluticasone propionate (FLONASE) 50 mcg/spray [place], Suspension nasal inhaler INSTILL 1-2 SPRAYS IN [...] Severe obesity (BMI 35.0-39.9) with comorbidity 05/21/2015 longterm (current) use of systemic steroids Prediabetes 05/21/2015 [...] on file 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 WIRE WEAVER HELPER Gender Identity Not on file Sexual [...] EXAM 05/20/2023 05/20/2022 Preventative Visit-Managed Medicaid 07/29/2024 08/08/2025, 07/28/2023, 07/27/2022, Additional history exists INFLUENZA VACCINE (#1) 2025 , 06/06/2020, 06/22/2018, Additional history exists COLORECTAL SCREENING 03/22/2029 03/22/2019 Colorectal Cancer Screening 03/22/2029 DTAP/TDAP/TD VACCINES (2 - T d or Tdap) 09/24/2030 09/24/2020 Medical Devices Implanted Type Area Glass Checker Device Identifier Shelf Expiration Date Model / Serial / Lot Tightrope Btb Acl [id number] - Sn/A Implanted:Qty: 1 on 06/13/2014 by Onel Ross MD at [facility] Right: Knee [employer] 02/19/2019 [id number] / N/A / [id number] Mesh Ventralight St 4x6in [id number] - Sna Implanted:Qty: 1 on 09/28/2018 by Andre Law MD at [facility] Mesh N/A: Abdomen CR [employer] 01/18/2020 [id number] / NA / [id number] Description:Soaked in Ropiva cristian 0.5% 100mg/20mL. Lot [id number], exp 02/11 Screw Biocomp Intrfrnc 9x35mm [id number] - [id number] Implanted:Qty: 1 on 06/13/2014 by Onel Ross MD at [facility] [place] Right: Knee [employer] 03/22/2015 [id number] / / [id number] Procedures Procedure Name Priority Date/Time Associated Diagnosis Comments HEMOGLOBIN A1C Routine 09/24/2020 10:42 AM WIRE WEAVER HELPER Type 2 diabetes mellitus without complication, without long-term current use of insulin ([facility]) MAMMO DIAGNOSTIC BILATERAL W OR WO CAD Routine 10/18/2018 3:42 PM WIRE WEAVER HELPER Abnormal mammogram LIPID PANEL Routine 07/20/2017 3:32 PM WIRE WEAVER HELPER Seronegative rheumatoid arthritis ([facility]) Essential hypertension Hypertriglyceridemi a from Last 3 Months or Most Recently Relevant to Health Maintenance Results * (ABNORMAL) HEMOGLOBIN A1C (09/24/2020 10:42 AM WIRE WEAVER HELPER) HEMOGLOBIN A1C 7.0(H) See Comment % 09/24/2020 9:03 PM WIRE WEAVER HELPER [facility] EST. AVG GLUCOSE, A1C 154 mg/dL 09/24/2020 9:03 PM WIRE WEAVER HELPER [facility] Blood Collection / Unknown 09/24/2020 10:42 AM WIRE WEAVER HELPER 09/24/2020 8:38 PM WIRE WEAVER HELPER Narrative [facility] - 09/24/2020 9:03 PM WIRE WEAVER HELPER HGB A1C INTERPRETATION NORMAL: <5.7% PRE-DIABETES: 5.7 - 6.4% DIABETES: 6.5% OR GREATER Falsely low A1C measurements can occur when: 1. Anemia and/or hemolytic anemia is present. 2. Hemoglobin variants present. 3. Renal failure. 4. Transfusion of blood product in the last 120 days. We recommend ordering a fructosamine test([id number]) to more accurately assess glycemic status if any of the above conditions are present. us [place] JOHN CHEMISTRY ORDERABLES Final Re sult [facility] SERVICES[facility]IONETTE [facility]OME[facility] CLIA# [id number] [address] [place] [address] * MAMMO DIAGNOSTIC BILATERAL W OR WO CAD (10/18/2018 3:42 PM WIRE WEAVER HELPER) Anatomical Region Laterality Modality Breast Bilateral Mammography 10/18/2018 3:42 PM WIRE WEAVER HELPER Impressions 10/20/2018 5:59 AM WIRE WEAVER HELPER : No mammographic evidence of malignancy. Stable postbiopsy changes of the left breast. Recommend returning to bilateral annual screening mammography in one year. The patient was given verbal and written results/recommendations. BI-RADS ASSESSMENT: 2 - Benign RECOMMENDATION: Bilateral annual screening mammography [id number] Narrative 10/20/2018 5:59 AM WIRE WEAVER HELPER EXAM: MAMMO DIAGNOSTIC BILATERAL W OR [...] * (ABNORMAL) LIPID PANEL (07/20/2017 3:32 PM WIRE WEAVER HELPER) CHOLESTEROL 235(H) <200 mg/dL 07/26/2017 8:46 AM [facility] TRIGLYCERIDE 162(H) <150 mg/dL 07/26/2017 8:46 AM [facility] HDL 62(H) 40 - 59 mg/dL 07/26/2017 8:46 AM [facility] LDL CALCULATED 141(H) <100 mg/dL 07/26/2017 8:46 AM [facility] NON-HDL CHOLESTEROL 173(H) <130 mg/dL 07/26/2017 8:46 AM [facility] Blood Collection / Unknown 07/20/2017 3:32 PM WIRE WEAVER HELPER 07/26/2017 8:32 AM WIRE WEAVER HELPER [facility]ORATORY SERVICES-[facility] - 07/26/2017 8:46 AM WIRE WEAVER HELPER TOTAL CHOLESTEROL mg/dL Desirable <200 Borderline high [...] Steen Jr., MD CHEMISTRY ORDERABLES Final Result [facility] CHRISTIE# [id number] [facility] [place] [address] from Last 3 Months or Most Recently Relevant to Health Maintenance Insurance [place] RX [address] [place] [address] [place] Advance Directives For more information, please contact: [phone] * Full Code (Latest Code Status on [...] 2:52 PM 04/09/2017 11:59 PM Care Teams Instructional Resource Teacher Relationship Specialty Start Date End Date Veronica Carvajal MD [address] [phone] PCP - General Family Practice 11/20/20
--- OUTSIDE RECORDS SUMMARY | 2025-08-08 20:09 | XMS_ITS | Encounter Summary ---
Author Organization [facility] Address [address] [place] [address] Care Team Providers Care Box Stapler Name Role Phone Nir Paulson MD Primary Care Provider [phone] Encounter Details Date Type Department Care Team (Late st Contact Info) Description 07/30/2025 Results Follow-Up [facility] Family Medicine [place] [address] [address] EarlOralia echeverria, [facility] [address] [address] XR DEXA BONE DENSITY AXIAL 1 OR MORE SITES Social History Tobacco Use Types Packs/Day Years [...] worry about transportation for future doctor visits, clam picker medication, etc.? No 2024 Housing Stability [...] file Legal Sex Female 3:40 AM FOOD SERVICE SUPERVISOR Gender Identity Not on file Sexual Orientation Not on file documented as of this encounter Plan of Treatment Upcoming Encounters Date Type Department Care Team (Late st Contact Info) Description 08/13/2025 9:15 AM FOOD SERVICE SUPERVISOR Office Visit [facility] Pulmonology [address] [place] [address] Jaymie Figueroa MD [address] [place] [address] 08/27/2025 2:20 PM FOOD SERVICE SUPERVISOR Telephone Check Up [facility] Neurosurgery [address] [place] [address] Martínez Han MD [address] [place] [address] 11/07/2025 2:40 PM CDT Office Visit [facility] Family Medicine [place] [address] [address] Nir Paulson MD [address] [address] 11/13/2025 2:30 PM CDT Office Visit [facility] Endocrinology [facility] [address] [place] [address] Alfred Tracy MD [address] [place] [address] 01/07/2026 1:00 PM CDT Office Visit [facility] [address] [place] [address] Berlin Summers PA [address] [place] [address] 01/15/2026 8:45 AM CDT Office Visit [facility] Neurology - [place] [address] [place] [address] Martínez Han MD [address] [place] [address] Yaneth Bass MD [address] [place] [address] 08/13/2026 3:00 PM FOOD SERVICE SUPERVISOR Office Visit [facility] HANSTamaraChriss Zheng [place] [address] [place] [address] Nanda Mg, WOOL PULLER [address] [place] [address] documented as of this encounter Visit Diagnoses Not on filedocumented in this encounter Care Teams Box Stapler Relationship Specialty Start Date End Date Nir Paulson MD [address] [facility] [place] [address] PCP - General Family Practice 10/13/21 documented as of this encounter
--- OUTSIDE RECORDS SUMMARY | 2025-08-08 20:09 | XMS_ITS | Encounter Summary ---
Author Organization [facility] Address [address] [place] [address] Care Team Providers Care Delivery Consultant Name Role Phone Veronica Carvajal MD Primary Care Provider Encounter Details Date Type Department Care Team (Late st Contact Info) Description 02/10/2018 Ancillary Orders [facility] [address] [facility] [address] [place] [address] Nir Paulson MD [address] [address] Screening for breast cancer Social [...] on file 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 DROSS PULLER Gender Identity Not on file Sexual Orientation [...] unspecified documented in this encounter Care Teams Delivery Consultant Relationship Specialty Start Date End Date Veronica Carvajal MD [address] [address] PCP - General Family Practice 11/20/20 documented as of this encounter
--- OUTSIDE RECORDS SUMMARY | 2025-08-08 20:09 | XMS_ITS | Encounter Summary ---
Author Organization [facility] Address [address] [place] [address] Care Team Providers Care Data Analysis Intern Name Role Phone Veronica Carvajal MD Primary Care Provider [phone]- [phone] Reason for Referral * Outpatient Services (Routine) - Closed Specialty Diagnoses / Procedures Referred By Contac t Referred To Contact Radiology Diagnoses Abnormal mammogram Procedures MAMMO DIAGNOSTIC UNI LEFT W OR WO CAD MAMMO DIAGNOSTIC UNI LEFT W OR WO CAD Nir Paulson MD [address] [address] Phone: tel: fax: [facility] [address] [facility] [address] [place] [address] Phone: tel: fax: Referral ID Status Reason Start Date Expiration Date V isits Requested Visits Authorized [id number] Closed SGF [facility] TO SCHEDULE (SGF) 12/17/2017 01/17/2019 1 1 Encounter Details Date Type Department Care Team (Late st Contact Info) Description 02/10/2018 Ancillary Orders [facility] [address] [facility] [address] [place] [address] Nir Paulson MD [address] [address] Abnormal mammogram Social History Tobacco Use Types Packs/Day Years Used Date Smoking Tobacco: Former Cigarettes 0.5 12 0 02/02/1984 - 02/02/1996 Smokeless Tobacco: Never Alcohol Use Standard Drinks/Week Comments No 0 (1 standard drink = 0.6 oz pur e alcohol) Comments No Sex and Gender Information Value Date Recorded Sex Assigned at Not on file 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 MATERIAL REQUIREMENTS PLANNING MANAGER Gender Identity Not on file Sexual [...] by the Computer Aided Detection System (CAD), [employer] ImageChecker, Version 8.3. The patient is status [...] RECOMMENDATIONS: Bilateral diagnostic mammogram in 6 months. [id number] Procedure Note Natanael Salazar MD - 02/10/2018 MAMMO DIAGNOSTIC UNI LEFT W OR WO CAD INDICATION FOR EXAMINATION: Abnormal mammogram COMPARISONS: Mammogram dated 05/24/2017, 05/31/2017, 06/02/2017. Ultrasound dated 06/02/2017, 05/31/2017. BREAST COMPOSITION: Heterogeneously dense which may obscure small masses. FINDINGS: This digital mammogram was also analyzed by the Computer Aided Detection System (CAD), [employer] Image[employer]er, Version 8.3. The patient is status post [...] RECOMMENDATIONS: Bilateral diagnostic mammogram in 6 months. [id number] Nir Paulson MD MAMMO ORDERABLES Final Re sult documented in this encounter Visit Diagnoses Diagnosis Abnormal mammogram Abnormal mammogram, unspecified Abnormal mammogram Abnormal mammogram, unspecified documented in this encounter Care Teams Data Analysis Intern Relationship Specialty Start Date End Date Veronica Carvajal MD [address] [address] PCP - General Family Practice 11/20/20 documented as of this encounter
--- OUTSIDE RECORDS SUMMARY | 2025-08-08 20:09 | XMS_ITS | Encounter Summary ---
Author Organization [facility] Address [address] [place] [address] Care Team Providers Care Technical Engineer Name Role Phone Nir Paulson MD Primary Care Provider [phone] Encounter Details Date Type Department Care Team (Latest Contact Info) Description 07/12/2025 Results Follow-Up [facility] Family Medicine [place] [address] 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 No 2024 Housing Stability [...] on file Legal Sex Female 3:40 AM OUTPATIENT DIETITIAN Gender Identity Not on file Sexual Orientation Not on file documented as of this encounter Miscellaneous Notes * Result Encounter Note - Lima Perez NP - 07/12/2025 11:33 AM OUTPATIENT DIETITIAN Blood count has returned to normal. ATIENT DIETITIAN documented in this encounter Plan of Treatment Upcoming Encounters Date Type Department Care Team (Late st Contact Info) Description 08/13/2025 9:15 AM OUTPATIENT DIETITIAN Office Visit [facility] Pulmonology [address] [place] [address] [place] [address] Jaymie Figueroa MD [address] [place] [address] 08/27/2025 2:20 PM OUTPATIENT DIETITIAN Telephone Check Up [facility] Neurosurgery [address] [place] [address] [place] [address] Martínez Han MD [address] [place] [address] 11/07/2025 2:40 PM CDT Office Visit [facility] Family Medicine [place] [address] [address] Nir Paulson MD [address] [address] 11/13/2025 2:30 PM CDT Office Visit [facility] [address] [place] [address] Alfred Tracy MD [address] [place] [address] 01/07/2026 1:00 PM CDT Office Visit [facility] [address] [place] [address] Berlin Summers PA [address] [place] [address] 01/15/2026 8:45 AM CDT Office Visit [facility] Neurology - [place] [address] [place] [address] Martínez Han MD [address] [place] [address] Yaneth Bass MD [address] [place] [address] 08/13/2026 3:00 PM OUTPATIENT DIETITIAN Office Visit [facility] OBMoris Zheng Olivier [address] [place] [address] Nanda Mg NP [address] [place] [address] documented as of this encounter Visit Diagnoses Not on filedocumented in this encounter Care Teams Technical Engineer Relationship Specialty Start Date End Date Nir Paulson MD [address] [place] [address] PCP - General Family Practice 10/13/21 documented as of this encounter
--- OUTSIDE RECORDS SUMMARY | 2025-08-08 20:09 | XMS_ITS | Encounter Summary ---
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 Exam: XR LUMBAR [...] flexion and extension. 2. Multilevel degenerative changes. [id number] Narrative Procedure Note Brayan Roman MD - [...] flexion and extension. 2. Multilevel degenerative changes. [id number] Shannen [facility] ORDERABLES Final Result documented in this encounter Visit Diagnoses Diagnosis Chronic bilateral low back pain with bilateral sciatica Subluxation of L4-L5 lumbar vertebra, sequela Chronic bilateral low back pain with bilateral sciatica Subluxation of L4-L5 lumbar vertebra, sequela documented in this encounter Care Teams Slasher Relationship Specialty Start Date End Date Veronica Carvajal MD [address] [address] PCP - General Family Practice 11/20/20 documented as of this encounter
--- OUTSIDE RECORDS SUMMARY | 2025-08-08 20:09 | XMS_ITS | Encounter Summary ---
Author Organization [facility] Address [address] [place] [address] Care Team Providers Care Dope And Fabric Worker Name Role Phone Nir Paulson MD Primary Care Provider [phone] [phone] Encounter Details Date Type Department Care Team (Late st Contact Info) Description 07/30/2025 Results Follow-Up [facility] Family Medicine [address] [facility] [address] [place] [address] Lima Perez NP [address] [place] [address] XR CHEST PA AND LATERAL 2 VW [...] worry about transportation for future doctor visits, vegetable picker medication, etc.? 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 US CORNER MACHINE OPERATOR documented in this encounter Plan of Treatment Upcoming Encounters Date Type Department Care Team (Late st Contact Info) Description 08/13/2025 9:15 AM RADIUS CORNER MACHINE OPERATOR Office Visit [facility] Pulmonology [address] [address] [place] [address] Jaymie Figueroa MD [address] [place] [address] 08/27/2025 2:20 PM RADIUS CORNER MACHINE OPERATOR Telephone Check Up [facility] Neurosurgery [address] [place] [address] [place] [address] Martínez Han MD [address] [place] [address] 11/07/2025 2:40 PM CDT Office Visit [facility] Family [facility] [address] [address] Nir Paulson MD [address] [address] 11/13/2025 2:30 PM CDT Office Visit [facility] [address] [place] [phone] Alfred Tracy MD [address] [place] [address] 01/07/2026 1:00 PM CDT Office Visit [facility] [address] [place] [address] Berlin Summers PA [address] [place] [address] 01/15/2026 8:45 AM CDT Office Visit [facility]rology - [place] [address] [place] [address] Martínez Han MD [address] [place] [address] Yaneth Bass MD [address] [place] [address] 08/13/2026 3:00 PM RADIUS CORNER MACHINE OPERATOR Office Visit [facility] [place] [address] [place] [address] Nanda Mg NP [address] [place] [address] documented as of this encounter Visit Diagnoses Not on filedocumented in this encounter Care Teams Dope And Fabric Worker Relationship Specialty Start Date End Date Nir Paulson MD [address] [facility] [place] [phone] PCP - General Family Practice 10/13/21 documented as of this encounter
--- OUTSIDE RECORDS SUMMARY | 2025-08-08 20:09 | XMS_ITS | Clinical Summary ---
Author Organization [facility] Address [address] [place] [address] Dr. Demarcon: Epic [place] [address] Care Team Providers Care Landing Man Name Role Phone Nir Paulson MD Primary Care Provider [phone] Allergies Active Allergy Reactions Criticality Noted Date [...] daily. Active fluticasone propionate (FLONASE) 50 mcg/spray [place], Suspension nasal inhaler SHAKE LIQUID AND USE 1 TO 2 SPRAYS IN EACH NOSTRIL DAILY 16 Gram Active cetirizine (ZyrTEC) 10 mg tablet Take 30 mg by mouth Active acetaminophen (TYLENOL) 500 mg tablet 1-2 tabs Active famotidine (PEPCID) 40 mg tabletIndicatio ns:Gastroesopha geal reflux disease without esophagitis TAKE 1 TABLET(40 MG) BY MOUTH TWICE DAILY 180 Tablet 1 Active azelastine (ASTELIN) 137 mcg/actuation nasal spray USE 1 TO 2 SPRAYS IN EACH NOSTRIL EVERY 12 HOURS NEEDED FOR CONGESTION 30 mL 5 Active TURMERIC ORAL Turmeric Active NITRIC ACID, BULK, MISC as directed Active HALLIE, BULK, MISC as directed Active EpiPen 2-Rudy 0.3 mg/0.3 mL Auto-Injector Active Cholecalciferol , Vitamin D3, (VITAMIN D3) 10 mcg (400 unit) capsule Take 50 mcg by mouth daily. Active morphine (MS CONTIN) 30 mg Controlled Release tablet TAKE ONE TABLET BY MOUTH TWICE DAILY FOR EXTENDED PAIN RELIEF 024 Active oxyCODONE (ROXICODONE) 10 mg tablet TAKE ONE TABLET BY MOUTH TWICE DAILY FOR breakthrough pain Active metFORMIN (GLUCOPHAGE) 500 mg tabletIndicatio ns:Controlled type 2 diabetes mellitus without complication, without long-term current use of insulin (CMS/HCC) Take 1 Tablet (500 mg) by mouth 2 times daily with meals. 180 Tablet 024 Active amLODIPine (NORVASC) 10 mg tabletIndicatio ns:HTN (hypertension), benign Take 1 Tablet (10 mg) by mouth daily. 90 Tablet 3 025 Active traMADol (ULTRAM) 50 mg tablet take 1 tablet by mouth three times daily as needed for pain Active cloNIDine HCL (CATAPRES) 0.1 mg tabletIndicatio ns:HTN (hypertension), benign TAKE 1 TABLET BY MOUTH IF BP IS >170/100 ONLY NEEDED 20 Tablet Active Additional Information Patient not taking.Reported on 08/08/2025 EnbreL 50 mg/mL (1 mL) Syringe INJECT ONE syringe UNDER THE SKIN EVERY SEVEN DAYS Active spironolactone (ALDACTONE) 50 mg tabletIndicatio ns:Benign hypertension Take 1 Tablet (50 mg) by mouth 2 times daily. 200 Tablet 3 025 Active mupirocin (BACTROBAN) 2 % OintmentIndicat ions:Skin ulcer of toe of left foot, limited to breakdown of skin (CMS/HCC) Apply to affected area daily. 15 Gram 025 Active metoprolol tartrate (LOPRESSOR) 25 mg tabletIndicatio ns:Chronic migraine without aura, intractable, without status migrainosus TAKE 1 TABLET BY MOUTH EVERY DAY NEEDED FOR MIGRAINE 30 Tablet 6 025 Active levalbuterol HFA (XOPENEX HFA) 45 mcg/Actuation HFA Aerosol InhalerIndicati ons:Moderate persistent asthma without complication Take 1-2 Puffs by inhalation every 4 hours as needed for Shortness of Breath. 15 Gram 1 025 Active predniSONE (DELTASONE) 10 mg tabletIndicatio ns:Rib pain on left side Take 4 tablets for 3 days then 3 tablets for 3 days then 2 tablets for 3 days and 1 tablet for 3 days 30 Tablet 025 Active losartan (COZAAR) 100 mg tabletIndicatio ns:Benign hypertension TAKE 1 TABLET BY MOUTH EVERY DAY 100 Tablet 1 025 Active methocarbamoL (ROBAXIN) 750 mg tabletIndicatio ns:Seronegative rheumatoid arthritis (CMS/HCC) TAKE 1-2 TABLETS (750-1,500 MG) BY MOUTH 3 TIMES DAILY 600 Tablet 1 025 Active metoprolol succinate (TOPROL XL) 25 mg Extended Release 24 hour tabletIndicatio ns:Benign hypertension TAKE 1 TABLET (25 MG) BY MOUTH DAILY. TAKE WITH 50 MG TABLET FOR 75 MG DOSE TOTAL 100 Tablet 1 025 Active metoprolol succinate (TOPROL XL) 50 mg Extended Release 24 hour tabletIndicatio ns:Benign hypertension TAKE 1 TABLET BY MOUTH DAILY. TAKE WITH 25 MG TABLET FOR 75 MG DOSE TOTAL 100 Tablet 1 025 Active morphine (MS CONTIN) 60 mg Controlled Release tablet TAKE 1 TABLET BY MOUTH ONCE EVERY 12-24 HOURS FOR EXTENDED PAIN RELIEF 025 Active furosemide (Lasix) 20 mg tabletIndicatio ns:Bilateral edema of lower extremity Take 1 Tablet (20 mg) by mouth 1 time daily as needed (swelling). 90 Tablet 2 Active Additional Information Patient not taking.Reported on 08/08/2025 hydrocortisone (CORTEF) 10 mg tablet Take 1 Tablet (10 mg) by mouth 2 times daily. 180 Tablet 1 Active nebulizerIndica tions:Severe persistent asthma with acute exacerbation (CMS/HCC) Length of need 99 months Nebulizer with compressor, Kit: Disposable Nebulizer Kit, 2 per month, filters , areosol mask: Yes. Name of Medication: Levalbuterol 1 Each Active tiotropium (Spiriva Respimat) 1.25 mcg/actuation Mist TAKE 2 PUFFS BY MOUTH DAILY DURING HARDER ASTHMA SEASONS NEEDED FOR RESPIRATORY INFECTIONS 4 Gram 11 Active mometasone-form oterol (Dulera) 200-5 mcg/actuation inhaler TAKE 2 PUFFS BY MOUTH 2 TIMES DAILY. 13 Gram 11 Active levalbuterol (XOPENEX) 0.63 mg/3 mL Solution for NebulizationInd ications:Modera te persistent asthma without complication,Mi ld intermittent asthma, unspecified whether complicated USE 1 VIAL PER NEBULIZER EVERY 6-8 HOURS NEEDED FOR SHORTNESS OF BREATH OR WHEEZING 90 mL 5 Active predniSONE (DELTASONE) 5 mg tablet TAKE 1 AND ONE HALF TABLETS BY MOUTH EVERY DAY FOR 30 DAYS Active doxycycline hyclate (VIBRAMYCIN) 100 mg tablet Take 1 Tablet by mouth 2 times daily. Active Hizentra 4 gram/20 mL (20 %) Syringe Active Blood-Glucose Meter KitIndications: Controlled type 2 diabetes mellitus without complication, without long-term current use of insulin ([facility]) Use to check blood sugars 3 times daily 1 Each Active lancetsIndicati ons:Controlled type 2 diabetes mellitus without complication, without long-term current use of insulin ([facility]) Use to check blood sugars 3 times dialy 100 Each Active oxygen home deliveryIndicat ions:Shortness of breath Home Oxygen Concentrator yes at 0 L/M Rest, 2 L/M Activity, 2 L/M Sleep, Delivery Device: Nasal Cannula Portability: yes, 0 L/M Rest, 2 L/M Activity, May provide device best for patient needs(E system,home fill, conserving device) Length of Need: 99 months 1 Each Active portable oxygenIndicatio ns:Shortness of breath Face to Face completed within 30 days: yes Length of Need: 99 months By: Nasal Cannula With Activity at 2 L/min. 1 Each Active insulin glargine (Lantus Solostar U-100 Insulin) 100 unit/mL pen syringeIndicati ons:Uncontrolle d type 2 diabetes mellitus with hyperglycemia, with long-term current use of insulin ([facility]) Inject 30 Units by subcutaneous injection daily with breakfast. 15 mL 1 Active Insulin [place], Disposable, (BD Ultra-Fine Mini Pen Needle) 31 gauge x 3/16 NeedleIndicatio ns:Uncontrolled type 2 diabetes mellitus with hyperglycemia, with long-term current use of insulin ([facility]) Use to inject insulin once a day 100 Each 1 Active promethazine (PHENERGAN) 25 mg tabletIndicatio ns:Nausea TAKE 1 TABLET BY MOUTH EVERY 6 HOURS NEEDED FOR NAUSEA AND VOMITING 90 Tablet 1 Active lidocaine (LIDODERM) 5 % Adhesive Patch, MedicatedIndica tions:Rib pain on left side APPLY 1 PATCH TO AFFECTED AREA EVERY 24 HOURS. 30 Patch 1 Active True Metrix Glucose Meter USE TO CHECK BLOOD SUGARS 3 TIMES DAILY Active immun glob G,IgG,-pro-IgA 0-50 (Hizentra) 10 gram/50 mL (20 %) Solution as directed Subcutaneous Active TRUEplus Lancets 33 gauge USE TO CHECK BLOOD SUGARS 3 TIMES DIALY Active benzonatate (TESSALON) 100 mg capsule Take 1 Capsule (100 mg) by mouth 3 times daily as needed for Cough. 90 Capsule 1 Active naproxen (NAPROSYN) 500 mg tablet TAKE 1 TABLET BY MOUTH TWICE A DAY WITH MEALS 60 Tablet 1 Active blood sugar diagnostic (True Metrix Glucose Test Strip) StripIndication s:Controlled type 2 diabetes mellitus without complication, without long-term current use of insulin ([facility]) USE TO CHECK BLOOD SUGARS 3 TIMES DAILY 100 Strip 11 Active conjugated estrogens (Premarin) 0.625 mg/gram vaginal cream INSERT 0.5 GRAM VAGINALLY 2 TIMES A WEEK 30 Gram 11 Active fluconazole (DIFLUCAN) 150 mg tablet Take 1 Tablet (150 mg) by mouth daily for 2 doses. Take one tablet today and repeat in 72hrs 2 Tablet 2024 Active conjugated estrogens (Premarin) 0.625 mg/gram vaginal creamIndication s:Post-menopaus al INSERT 0.5 GRAM VAGINALLY 2 TIMES A WEEK 30 Gram 11 024 2024 Discontinued(R eorder) naproxen (NAPROSYN) 500 mg tablet Take 1 Tablet (500 mg) by mouth 2 times daily with meals. 60 Tablet 1 2024 Discontinued lidocaine (LIDODERM) 5 % Adhesive Patch, MedicatedIndica tions:Rib pain on left side APPLY 1 PATCH TO AFFECTED AREA EVERY 24 HOURS. 30 Patch 2024 Discontinued benzonatate (TESSALON) 100 mg capsule TAKE 1 CAPSULE BY MOUTH 3 TIMES A DAY NEEDED FOR COUGH FOR 5 DAYS 2024 Discontinued(R eorder) celecoxib (CeleBREX) 200 mg capsule TAKE 1 CAPSULE BY MOUTH 2 TIMES DAILY. DOSE INCREASE 2024 Discontinued(A lternate therapy prescribed) promethazine (PHENERGAN) 25 mg tabletIndicatio ns:Nausea TAKE 1 TABLET BY MOUTH EVERY 6 HOURS NEEDED FOR NAUSEA AND VOMITING 90 Tablet 2024 Discontinued levoFLOXacin (LEVAQUIN) 500 mg tabletIndicatio ns:Productive cough,Leukocyto sis, unspecified type Take 1 Tablet (500 mg) by mouth daily for 7 days. 7 Tablet 025 2024 blood sugar diagnostic (Blood Glucose Test) StripIndication s:Controlled type 2 diabetes mellitus without complication, without long-term current use of insulin ([facility]) Use to check blood sugars 3 times daily 100 Each 025 2024 Discontinued furosemide (Lasix) 40 mg tabletIndicatio ns:Lower leg edema Take 1 Tablet (40 mg) by mouth daily for 7 days. 7 Tablet 2024 clindamycin HCL (CLEOCIN) 300 mg CapsuleIndicati ons:Pneumonia of left lower lobe due to infectious organism Take 1 Capsule (300 mg) by mouth 4 times daily for 7 days. 28 Capsule 2024 potassium CHLORIDE (KLOR-CON) 10 mEq Extended Release tabletIndicatio ns:Lower leg edema Take 1 Tablet (10 mEq) by mouth daily with breakfast for 7 days. 7 Tablet 2024 predniSONE (DELTASONE) 10 mg tabletIndicatio ns:Shortness of breath Take 4 Tablets (40 mg) by mouth daily with breakfast for 5 days, THEN 3 Tablets (30 mg) daily with breakfast for 5 days. 35 Tablet 2024 oxygen conserving device evaluationIndic ations:Shortnes s of breath SPO2 goal for oxygen titration with oxygen conserving device: > OR = 90%. Current oxygen liter flow: 2 L/min. Your patient will be evaluated for the portable system most appropriate for their needs to include conserving device or homefill system. Pt needs POC 1 Each 2024 amoxicillin-cla vulanate (AUGMENTIN) 875-125 mg tabletIndicatio ns:Shortness of breath,Wheezing Take 1 Tablet by mouth every 12 hours for 7 days. 14 Tablet 2024 Active Problems Problem Noted Date Diagnosed Date Hamstring tear 01/31/2025 CVID (common variable immunodeficiency) 10/03/19 25 Severe persistent asthma without complication Controlled type [...] H/O chronic inflammatory arthritis 05/29/2015 Fibromyalgia 05/29/2015 long-term (current) use of systemic steroids Resolved Problems [...] Encounters Date Type Department Care Team Description 08/08/2025 3:30 PM REVENUE CYCLE MANAGER Office Visit [facility] Douglas Zheng Olivier [address] [place] [phone] Nanda Mg NP Encounter for gynecological examination with abnormal finding (Primary Dx); Vaginal itching; Post-menopausal 08/07/2025 Refill [facility] Endocrinology [facility] [address] [place] [phone] Alfred Tracy MD Controlled type 2 diabetes mellitus without complication, without long-term current use of insulin ([facility]) 08/06/2025 4:14 PM REVENUE CYCLE MANAGER - 08/06/2025 11:59 PM REVENUE CYCLE MANAGER Hospital Encounter [facility] [address] [place] [address] Martínez Han MD Arrived Discharge Disposition: Home or Self Care 08/01/2025 Refill [facility] [address] [place] [phone] Byron Rubi PA-C 07/31/2025 Results Follow-Up [facility] Pulmonology [address] [place] [address] [place] [phone] Tammie Saldivar APRN CT CHEST HIGH RESOLUTION 07/30/2025 9:17 AM REVENUE CYCLE MANAGER - 07/30/2025 11:59 PM REVENUE CYCLE MANAGER Hospital Encounter [facility] Outpatient Laboratory Services [place] [address] [facility] [address] [place] [phone] Lima Perez NP Discharge Disposition: Home or Self Care 07/30/2025 9:14 AM REVENUE CYCLE MANAGER - 07/30/2025 11:59 PM REVENUE CYCLE MANAGER Hospital Encounter [facility] maging [facility] [address] [facility] [address] [place] [phone] Lima Perez NP Discharge Disposition: Home or Self Care 07/30/2025 9:00 AM REVENUE CYCLE MANAGER Office Visit [address] [phone] Lima Perez NP Shortness of breath (Primary Dx); Screening mammogram, encounter for; Wheezing 07/30/2025 7:59 AM REVENUE CYCLE MANAGER - 07/30/2025 11:59 PM REVENUE CYCLE MANAGER Hospital Encounter [facility] CT Scan [place] [address] [place] [address] Jaymie Figueroa MD Discharge Disposition: Home or Self Care 07/30/2025 Results Follow-Up [place] [phone] Lima Perez NP CBC WITH DIFFERENTIAL, COMPREHENSIVE METABOLIC PANEL 07/30/2025 Results Follow-Up [place] [phone] Lima Perez NP XR CHEST PA AND LATERAL 2 VW 07/30/2025 Lab Requisition [facility] General Laboratory Services [place] [address] [place] [phone] Lima Perez NP Shortness of breath 07/30/2025 Results Follow-Up [address] [phone] Earl, Crystal Yoly, SCHOOL RESOURCE OFFICER XR DEXA BONE DENSITY AXIAL 1 OR MORE SITES 07/30/[address] [phone] Lima Perez NP Rib pain on left side 07/26/[address] [place] [address] Lima Perez NP Nausea 07/24/2025 Results Follow-Up [address] [phone] Lima Perez NP COMPREHENSIVE METABOLIC PANEL, CBC WITH DIFFERENTIAL 07/23/2025 1:54 PM REVENUE CYCLE MANAGER - 07/23/2025 11:59 PM REVENUE CYCLE MANAGER [facility] [place] [address] [facility] [address] [place] [phone] Earl, Oralia Frederick, SCHOOL RESOURCE OFFICER Lima Perez NP Discharge Disposition: Home or Self Care 07/23/2025 1:53 PM REVENUE CYCLE MANAGER - 07/23/2025 11:59 PM REVENUE CYCLE MANAGER Hospital Encounter [facility] [address] [facility] [address] [place] [phone] Lima Perez NP Discharge Disposition: Home or Self Care 07/23/2025 Orders Only [facility] Endocrinology [facility] [address] [place] [phone] Alfred Tracy MD Uncontrolled type 2 diabetes mellitus with hyperglycemia, with long-term current use of insulin ([facility]) (Primary Dx) 07/23/2025 Orders Only [facility] [address] [phone] Lima Perez NP Lower leg edema (Primary Dx) 07/20/2025 2:45 PM REVENUE CYCLE MANAGER Initial consult [facility] Pulmonology [address] [place] [phone] Jaymie Figueroa MD Shortness of breath (Primary Dx); Closed fracture of multiple ribs of both sides, sequela 07/17/2025 4:00 PM REVENUE CYCLE MANAGER Office Visit [facility] [address] [phone] Lima Perez NP Lower leg edema (Primary Dx); Screening mammogram, encounter for; Pneumonia of left lower lobe due to infectious organism 07/16/2025 1:32 PM REVENUE CYCLE MANAGER - 07/16/2025 11:59 PM REVENUE CYCLE MANAGER Hospital Encounter [facility] Nuclear Medicine [address] [place] [phone] Lima Perez NP Discharge Disposition: Home or Self Care 07/16/2025 Medication Prior Auth Encounter [facility] Prescription Management Dept [address] [place] [address] Megan Canada, PHARMACIST 07/12/2025 Results Follow-Up [facility] [address] [phone] Lima Perez NP CBC WITH DIFFERENTIAL 07/10/2025 1:00 PM REVENUE CYCLE MANAGER Office Visit [facility] [address] [place] [address] [place] Summers PA Moderate persistent asthma without complication (Primary Dx); CVID (common variable immunodeficiency) ([facility]); Allergic rhinitis due to fungal spores, unspecified seasonality 07/10/2025 Orders Only [facility] [address] [place] [address] Sol Douglas Controlled type 2 diabetes mellitus without complication, without long-term current use of insulin (CMS/[facility]) (Primary Dx) 07/08/2025 Results Follow-Up [facility] [address] [phone] Lima Perez NP CBC WITH DIFFERENTIAL 07/06/2025 Medication Prior Auth Encounter [address] [phone] Codi Stewart 07/06/2025 Orders Only [address] [phone] Lima Perez NP 07/06/2025 Orders Only [address] [phone] Nir Paulson MD 07/05/[address] [phone] Nir Paulson MD Medication Question 07/05/2025 Orders Only [address] [place] [address] Duncannon, Lima, SAS BI DEVELOPER Leukocytosis, unspecified type (Primary Dx) 07/04/2025 Results Follow-Up [address] [phone] Chris Lima, SAS BI DEVELOPER CBC WITH DIFFERENTIAL, COMPREHENSIVE METABOLIC PANEL, PET TUMOR OR INFECTION IMG W CT SKB MDTH 07/03/2025 11:20 AM REVENUE CYCLE MANAGER Office Visit [address] [place] [address] Karolina Perezi, SAS BI DEVELOPER Hospital discharge follow-up (Primary Dx); Screening mammogram, encounter for; Nausea; Lung nodules; Leukocytosis, unspecified type 07/03/2025 External Device Data ST[facility] ABSTRACTION Provider, Abstract 07/03/2025 External Device Data [facility] ABSTRACTION Provider, Abstract 07/03/[address] [phone] Nir Paulson MD 07/03/2025 Orders Only [facility] Information [facility] [place] [address] [place] [phone] Provider, Abstract 07/03/[address] [phone] Telma Valverde, NEYDA Moderate persistent asthma without complication; Mild intermittent asthma, unspecified whether complicated 07/03/2025 Refill [facility] [address] [place] [address] [place] Summers PA 07/02/[address] [phone] Duncannon, Lima, SAS BI DEVELOPER Rib pain on left side 06/29/[address] [phone] Chris, Lima, SAS BI DEVELOPER Rib pain on left side 06/26/2025 External Device Data STL ABSTRACTION Provider, Abstract 06/26/2025 Orders Only [facility] Health Information Management [place] [address] [place] [phone] Provider, Abstract 06/22/[address] [phone] Nir Paulson MD Provider Call 06/21/[address] [phone] Nir Paulson MD Provider Call 06/21/2025 Results Follow-Up [address] [phone] Nir Paulson MD RESPIRATORY PATHOGEN PCR PANEL, XR CHEST PA AND LATERAL 2 VW 06/19/2025 2:40 PM CDT - 06/19/2025 11:59 PM CDT Hospital Encounter [facility] [address] [phone] Nir Paulson MD Discharge Disposition: Home or Self Care 06/19/2025 1:20 PM CDT Office Visit [address] [phone] Nir Paulson MD Productive cough (Primary Dx); Severe persistent asthma with acute exacerbation ([facility]); manager terminal (current) use of systemic steroids; CVID (common variable immunodeficiency) ([facility]) 06/19/[address] [phone] Nir Paulson MD Provider Call 06/18/2025 3:00 PM CDT Office Visit [facility] Neurosurgery [address] [place] [phone] Martínez Han MD Myelopathy ([facility]) (Primary Dx); Chronic back pain greater than 3 months duration 06/11/2025 Refill [facility] Endocrinology [facility] [address] [place] [address] Alfred Tracy MD 06/07/2025 3:20 PM CDT Office Visit [address] [phone] Byron Rubi PA-C Bilateral foot pain (Primary Dx); Left knee injury, initial encounter; Nondisplaced fracture of fourth metatarsal bone, left foot, initial encounter for closed fracture; Closed nondisplaced fracture of fifth metatarsal bone of left foot, initial encounter 06/07/2025 2:40 PM CDT Ancillary Procedure [address] [phone] Byron Rubi PA-C Bilateral foot pain 06/07/2025 2:35 PM CDT Ancillary Procedure [address] [phone] Byron Rubi PA-C Left knee injury, initial encounter 06/07/2025 Results Follow-Up [address] [phone] Oralia Elliott FNP CBC WITH DIFFERENTIAL, BASIC METABOLIC PANEL 06/06/2025 11:00 AM CDT Office Visit [address] [phone] Oralia Elliott FNP Closed fracture of multiple ribs of left side with routine healing, subsequent encounter (Primary Dx); long-term (current) use of systemic steroids; Osteopenia of multiple sites; Localized swelling of both lower legs; Bilateral edema of lower extremity; Serum calcium elevated; Alkaline phosphatase elevation 06/06/[address] [phone] Nir Paulson MD Benign hypertension; Seronegative rheumatoid arthritis ([facility]) 06/05/2025 External Device Data ST[place] ABSTRACTION Provider, Abstract 06/05/2025 External Device Data ST[place] ABSTRACTION Provider, Abstract 06/05/2025 External Device Data STL ABSTRACTION Provider, Abstract 06/02/2025 Results Follow-Up [facility] Emergency [address] [place] [address] Adriana Kauffman APRN URINE CULTURE 06/01/2025 10:12 AM CDT - 06/01/2025 12:30 PM CDT Emergency [facility] [address] [place] [phone] Closed fracture of multiple ribs of left side, initial encounter (Primary Dx) Discharge Disposition: Home or Self Care 06/01/2025 Travel 05/30/2025 Results Follow-Up [address] [phone] Lima Perez, SAS BI DEVELOPER BRAIN NATRIURETIC PEPTIDE, BNP OR PROBNP, COMPREHENSIVE METABOLIC PANEL, C-REACTIVE PROTEIN, CBC WITH DIFFERENTIAL 05/30/2025 Results Follow-Up [address] [phone] Lima Perez, SAS BI DEVELOPER XR CHEST PA AND LATERAL 2 VW 05/30/[address] [phone] Nir Paulson MD Remote Monitoring 05/29/2025 4:27 PM CDT - 05/29/2025 11:59 PM CDT Hospital Encounter [address] [phone] Lima Perez, SAS BI DEVELOPER Discharge Disposition: Home or Self Care 05/29/2025 4:25 PM CDT - 05/29/2025 11:59 PM CDT Hospital Encounter [facility] Laboratory [address] [place] [phone] Lima Perez, SAS BI DEVELOPER Chest pain, unspecified Discharge Disposition: Home or Self Care 05/29/2025 4:00 PM CDT Office Visit [facility] [address] [phone] Chris, Lima, SAS BI DEVELOPER Rib pain on left side (Primary Dx); Left-sided chest pain; Bilateral lower extremity edema 05/29/2025 Lab Requisition [facility] Laboratory Services [place] [address] [place] [address] Duncannon, Lima, SAS BI DEVELOPER Chest pain, unspecified; Localized edema 05/25/2025 Telephone [facility] [address] [place] [address] [place] Summers PA Advice Only 05/23/2025 Refill [facility] [address] [place] [address] [place] [address] Nir Paulson MD Nausea 05/22/2025 External Device Data ST[facility] ABSTRACTION Provider, Abstract 05/18/2025 2:30 PM CDT Office Visit [facility] [address] [place] [address] Berlin Summers PA CVID (common variable immunodeficiency) (CMS/HCC) (Primary Dx); Moderate persistent asthma without complication; Allergic rhinitis due to fungal spores, unspecified seasonality 05/17/2025 Results Follow-Up [facility] [place] [address] [place] [address] Alfred Tracy MD TSH, VITAMIN D 25 HYDROXY, HEMOGLOBIN A1C 05/16/2025 2:30 PM CDT Office Visit [facility] [address] [place] [address] Alfred Tracy MD Controlled type 2 diabetes mellitus without complication, without long-term current use of insulin (CMS/HCC) (Primary Dx); Hypovitaminosis D; Class 1 obesity with serious comorbidity and body mass index (BMI) of 31.0 to 31.9 in adult, unspecified obesity type 05/16/2025 Results Follow-Up [address] [phone] Earl, Oralia Yoly, SCHOOL RESOURCE OFFICER URINE CULTURE 05/10/2025 4:00 PM CDT Office Visit [facility] [address] [phone] Earl, Oralia Francon, SCHOOL RESOURCE OFFICER Infection due to salmonella (Primary Dx); Encounter for routine adult health examination with abnormal findings; Yeast infection; Upper respiratory tract infection, unspecified type; Controlled type 2 diabetes mellitus without complication, without long-term current use of insulin ([facility]) from Last 3 Months Immunizations Immunization Administration [...] worry about transportation for future doctor visits, 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 No 2024 Housing Stability [...] on file Legal Sex Female 3:40 AM REVENUE CYCLE MANAGER Gender Identity Not on file Sexual Orientation Not on file Last Filed Vital Signs Vital Sign Reading Time Taken Comments Blood Pressure 128/78 08/08/2025 3:11 PM REVENUE CYCLE MANAGER Pulse 107 07/30/2025 8:45 AM REVENUE CYCLE MANAGER Temperature 37.1 C (98.7 F) 07/30/2025 8:45 AM REVENUE CYCLE MANAGER Respiratory Rate 22 07/30/2025 8:45 AM REVENUE CYCLE MANAGER Oxygen Saturation 97% 07/30/2025 8:45 AM REVENUE CYCLE MANAGER Inhaled Oxygen Concentration - - Weight 91.7 kg (202 lb 1.6 oz) 08/08/2025 3:11 P M REVENUE CYCLE MANAGER Height 170.2 cm (5' 7 ) 07/30/2025 8:45 AM REVENUE CYCLE MANAGER Body Mass Index 31.65 07/30/2025 8:45 AM REVENUE CYCLE MANAGER Plan of Treatment Upcoming Encounters Date Type Department Care Team (Late st Contact Info) Description 08/13/2025 9:15 AM REVENUE CYCLE MANAGER Office Visit [facility] Pulmonology [address] [place] [address] Jaymie Figueroa MD [address] [place] [address] 08/27/2025 2:20 PM REVENUE CYCLE MANAGER Telephone Check Up [facility] Neurosurgery [address] [place] [address] Martínez Han MD [address] [place] [address] 11/07/2025 2:40 PM CDT Office Visit [facility] [address] [phone] Nir Paulson MD [address] [address] 11/13/2025 2:30 PM CDT Office Visit [facility] [address] [place] [address] Alfred Tracy MD [address] [place] [address] 01/07/2026 1:00 PM CDT Office Visit [facility] [place] [address] [place] [address] Berlin Summers PA [address] [place] [address] 01/15/2026 8:45 AM CDT Office Visit [facility] Neurology - [place] [address] [place] [address] Martínez Han MD [address] [place] [address] Yaneth Bass MD [address] [place] [address] 08/13/2026 3:00 PM REVENUE CYCLE MANAGER Office Visit [facility] Douglas Norm Aguayo [address] [place] [address] Nanda Mg, CON[place]AN[place] [address] [place] [address] Health Maintenance Due Date Last Done Comments HEPATITIS B VACCINES (1 of 3 - 19+ 3-dose series) 1987 ZOSTER VACCINE (1 of 2) 1987 FIT-DNA Q 3 years 2013 FIT/FOBT Q 1 year 2013 Flex Sig/CT Colonography Q 5 years 2013 LDL CHOLESTEROL ANNUAL 01/03/2025 , 07/20/2017, 12/24/2016, Additional history exists BREAST CANCER SCREENING 06/14/2025 06/14/20, 10/18/2018, 10/18/2018, Additional history exists DIABETES ANNUAL RETINAL EXAM 07/18/2025 07/18/2024, 05/20/2022 DIABETES HBA1C Q 6 MONTHS 12/22/20252024, 05/16/2025, 11/14/2024, Additional history exists DIABETES ANNUAL FOOT EXAM 12/29/20252024, 08/25/2023, 06/04/2022 DIABETES MICROALBUMIN ANNUAL SCREEN 05/11/2026 05/11/2025, 11/07/2024, 05/06/2023 DIABETES: A1C (Auto Order) 06/24/202606/24, 05/16/2025, 11/14/2024, Additional history exists Preventative Visit-Managed Medicaid 08/09/2026 08/08/2025, 08/02/2024, 07/28/2023, Additional history exists COLORECTAL SCREENING 03/22/2029 03/22/2019, 03/22/20 Colorectal Cancer Screening 03/22/2029 DTAP/TDAP/TD VACCINES (2 - T d or Tdap) 09/24/2030 09/24/2020 INFLUENZA VACCINE Completed 05/10/2025, , 08/10/2022, Additional history exists Medical Devices Implanted Type Area Senior Digital Designer Device Identifier Shelf Expiration Date Model / Serial / Lot Tightrope Btb Acl [id number] - Sn/A Implanted:Qty: 1 on 06/13/2014 by Onel Ross MD [place] Right: Knee [employer] 02/19/2019 [id number] / N/A / [id number] Mesh Ventralight St 4x6in [id number] - Sna Implanted:Qty: 1 on 09/28/2018 by Andre Law MD Mesh N/A: Abdomen CR [employer]ARD[employer] 01/18/2020 [id number] / NA / [id number] Description:Soaked in Ropiva cristian 0.5% 100mg/20mL. Lot [id number], exp 02/11 Screw Biocomp Intrfrnc 9x35mm [id number] - [id number] Implanted:Qty: 1 on 06/13/2014 by Onel Ross MD [place] Right: Knee [employer] 03/22/2015 [id number] / / [id number] Procedures Procedure Name Priority Date/Time Associated Diagnosis Comments MRI CERVICAL WO CONTRAST Routine 08/06/2025 5:24 PM REVENUE CYCLE MANAGER Myelopathy (CMS/HCC) XR CHEST PA AND LATERAL 2 VW Stat 07/30/2025 9:34 AM REVENUE CYCLE MANAGER Wheezing COMPREHENSIVE METABOLIC PANEL Stat 07/30/2025 9:25 AM REVENUE CYCLE MANAGER Shortness of breath CBC WITH DIFFERENTIAL Stat 07/30/2025 9:25 AM REVENUE CYCLE MANAGER Shortness of breath CT CHEST HIGH RESOLUTION Routine 07/30/2025 8:32 AM REVENUE CYCLE MANAGER Shortness of breath CBC WITH DIFFERENTIAL Routine 07/23/2025 3:01 PM REVENUE CYCLE MANAGER Lower leg edema COMPREHENSIVE METABOLIC PANEL Routine 07/23/2025 3:01 PM REVENUE CYCLE MANAGER Lower leg edema XR DEXA BONE DENSITY AXIAL 1 OR MORE SITES Routine 07/23/2025 2:44 PM REVENUE CYCLE MANAGER manager terminal (current) use of systemic steroids Osteopenia of multiple sites Closed fracture of multiple ribs of left side with routine healing, subsequent encounter ECHO COMPLETE Routine 07/23/2025 2:32 PM REVENUE CYCLE MANAGER Elevated brain natriuretic peptide (BNP) level PET TUMOR OR INFECTION IMG W CT SKB MDTH Routine 07/16/2025 3:52 PM REVENUE CYCLE MANAGER Lung nodules POC GLUCOSE Routine 07/16/2025 2:04 PM REVENUE CYCLE MANAGER CBC WITH DIFFERENTIAL Routine 07/11/2025 3:12 PM REVENUE CYCLE MANAGER Leukocytosis, unspecified type CBC WITH DIFFERENTIAL Routine 07/06/2025 3:32 PM REVENUE CYCLE MANAGER Leukocytosis, unspecified type COMPREHENSIVE METABOLIC PANEL Stat 07/03/2025 12:14 PM REVENUE CYCLE MANAGER Leukocytosis, unspecified type CBC WITH DIFFERENTIAL Routine 07/03/2025 12:14 PM REVENUE CYCLE MANAGER Leukocytosis, unspecified type COMPREHENSIVE METABOLIC PANEL Routine 06/29/2025 1:07 PM REVENUE CYCLE MANAGER COMPREHENSIVE METABOLIC PANEL Routine 06/28/2025 1:06 PM REVENUE CYCLE MANAGER COMPREHENSIVE METABOLIC PANEL Routine 06/27/2025 1:06 PM REVENUE CYCLE MANAGER COMPREHENSIVE METABOLIC PANEL Routine 06/26/2025 1:05 PM REVENUE CYCLE MANAGER COMPREHENSIVE METABOLIC PANEL Routine 06/25/2025 1:04 PM REVENUE CYCLE MANAGER COMPREHENSIVE METABOLIC PANEL Routine 06/24/2025 10:19 AM REVENUE CYCLE MANAGER HEMOGLOBIN A1C Routine 06/24/2025 RESPIRATORY PATHOGEN PCR PANEL Routine 06/20/2025 2:11 PM CDT Severe persistent asthma with acute exacerbation (CMS/HCC) long-term (current) use of systemic steroids CVID (common variable immunodeficiency) (CMS/HCC) Productive cough XR CHEST PA AND LATERAL [...] complication, without long-term current use of insulin ([facility]) VITAMIN D 25 HYDROXY Routine 05/16/2025 3:07 PM CDT Controlled type 2 diabetes mellitus without complication, without long-term current use of insulin ([facility]) Hypovitaminosis D TSH Routine 05/16/2025 3:07 PM CDT Controlled type 2 diabetes mellitus without complication, without long-term current use of insulin ([facility]) Hypovitaminosis D MICROALBUMIN/CREATINI NE RATIO, RANDOM UR Routine 05/11/2025 8:38 AM CDT Controlled type 2 diabetes mellitus without complication, without long-term current use of insulin ([facility]/H[facility]) URINE CULTURE Routine 05/11/2025 8:38 AM CDT Infection due to salmonella HM DIABETES EYE EXAM Routine 07/18/2024 12:39 PM REVENUE CYCLE MANAGER MAMMO 3D SANDRA SCREEN BILAT W OR WO CAD Routine 06/14/2024 3:45 PM CDT Breast cancer screening by mammogram LIPID PANEL Routine 01/04/2024 11:41 AM CDT Controlled type 2 diabetes mellitus without complication, without long-term current use of insulin (CMS/HCC) from Last 3 Months or Most Recently Relevant to Health Maintenance Results * MRI CERVICAL WO CONTRAST (08/06/2025 5:24 PM REVENUE CYCLE MANAGER) Anatomical Region Laterality Modality Spine Magnetic Resonan ce 08/06/2025 5:24 PM REVENUE CYCLE MANAGER Impressions 08/07/2025 9:10 AM REVENUE CYCLE MANAGER IMPRESSION: Please see below. Exam: MRI CERVICAL [...] Han MD MR ORDERABLES Final Res ult * XR CHEST PA AND LATERAL 2 VW (07/30/2025 9:34 AM REVENUE CYCLE MANAGER) Only the most recent of3 resultswithin the time period is included. Anatomical Region Laterality Modality Chest Computed Radiogr aphy 07/30/2025 9:35 AM REVENUE CYCLE MANAGER Impressions 07/30/2025 9:49 AM REVENUE CYCLE MANAGER Impression: The cardiac silhouette appears enlarged. No pulmonary consolidation, pleural effusion or pneumothorax is identified. The osseous structures appear grossly intact. Narrative 07/30/2025 9:49 AM REVENUE CYCLE MANAGER Exam: XR CHEST PA AND LATERAL 2 VW Date/Time of Exam: 07/30/2025 9:34 AM Reason For Exam: See Diagnosis. Diagnosis: Wheezing. Comparison: June 19, 2025. Procedure Note Akshat Cohen MD - 07/30/2025 Exam: XR CHEST PA AND LATERAL 2 VW Date/Time of Exam: 07/30/2025 9:34 AM Reason For Exam: See Diagnosis. Diagnosis: Wheezing. Comparison: June 19, 2025. Impression: The cardiac silhouette appears enlarged. No pulmonary consolidation, pleural effusion or pneumothorax is identified. The osseous structures appear grossly intact. Lima Perez NP DIAGNOSTIC IMAGING ORDERABLES Final Result * (ABNORMAL) CBC WITH DIFFERENTIAL (07/30/2025 9:25 AM REVENUE CYCLE MANAGER) Only the most recent of8 resultswithin the time period is included. WBC 13.9(H) 4.0 - 10.0 K/uL 07/30/2025 9:36 AM [facility] RBC 4.49 3.93 - 5.22 M/uL 07/30/2025 9:36 AM [facility] HEMOGLOBIN 13.0 11.2 - 15.7 g/dL 07/30/2025 9:36 AM [facility] HEMATOCRIT 40.7 34.1 - 44.9 % 07/30/2025 9:36 AM [facility] MCV 90.6 79.4 - 94.8 fL 07/30/2025 9:36 AM [facility] MCH 29.0 25.6 - 32.2 pg 07/30/2025 9:36 AM [facility] MCHC 31.9(L) 32.2 - 35.5 g/dL 07/30/2025 9:36 AM [facility] RDW 14.6(H) 11.0 - 14.5 % 07/30/2025 9:36 AM [facility] RDW-STDEV 48.4 36.9 - 56.9 fL 07/30/2025 9:36 AM [facility] PLATELETS 410(H) 163 - 337 K/uL 07/30/2025 9:36 AM [facility] MPV 8.5(L) 10.0 - 14.8 fL 07/30/2025 9:36 AM [facility] NEUTROPHILS 87(H) 34 - 71 % 07/30/2025 9:36 AM [facility] LYMPHOCYTES 9(L) 19 - 52 % 07/30/2025 9:36 AM [facility] MONOCYTES 3(L) 5 - 13 % 07/30/2025 9:36 AM [facility] EOSINOPHILS 0(L) 1 - 6 % 07/30/2025 9:36 AM [facility] BASOPHILS 0 0 - 1 % 07/30/2025 9:36 AM [facility] IMMATURE GRANULOCYTES 1 % 07/30/2025 9:36 AM [facility] NEUTROPHIL ABSOLUTE 12.04(H) 1.56 - 6.13 K/uL 07/30/2025 9:36 AM [facility] LYMPHOCYTE ABSOLUTE 1.20 1.20 - 3.40 K/uL 07/30/2025 9:36 AM [facility] MONOCYTE ABSOLUTE 0.47(H) 0.24 - 0.36 K/uL 07/30/2025 9:36 AM [facility] EOSINOPHIL ABSOLUTE 0.01(L) 0.04 - 0.36 K/uL 07/30/2025 9:36 AM [facility] BASOPHILS ABSOLUTE 0.04 0.01 - 0.08 K/uL 07/30/2025 9:36 AM [facility] IMMATURE GRANULOCYTES ABSOLUTE 0.13 K/uL 07/30/2025 9:36 AM [facility] Blood Collection / Unknown 07/30/2025 9:25 AM REVENUE CYCLE MANAGER 07/30/2025 9:31 AM REVENUE CYCLE MANAGER us Lima Perez NP HEMATOLOGY ORDERABLES Final Re sult [facility] CLIA # [id number] [address] [place] [address] [id number] * (ABNORMAL) COMPREHENSIVE METABOLIC PANEL (07/30/2025 9:25 AM REVENUE CYCLE MANAGER) Only the most recent of12 resultswithin the time period is included. SODIUM 137 136 - 145 mmol/L 07/30/2025 9:53 AM [facility] POTASSIUM 4.2 3.5 - 5.1 mmol/L 07/30/2025 9:53 AM [facility] CHLORIDE 99 98 - 107 mmol/L 07/30/2025 9:53 AM [facility] CO2 26 22 - 29 mmol/L 07/30/2025 9:53 AM [facility] CALCIUM 9.8 8.6 - 10.0 mg/dL 07/30/2025 9:53 AM [facility] BUN 13 6 - 20 mg/dL 07/30/2025 9:53 AM [facility] CREATININE 0.67 0.51 - 0.95 mg/dL 07/30/2025 9:53 AM [facility] GLUCOSE 183(H) 74 - 99 mg/dL 07/30/2025 9:53 AM [facility] TOTAL PROTEIN 6.8 6.6 - 8.7 g/dL 07/30/2025 9:53 AM [facility] ALBUMIN 4.4 3.5 - 5.2 g/dL 07/30/2025 9:53 AM [facility] BILIRUBIN TOTAL 0.3 0.0 - 1.2 mg/dL 07/30/2025 9:53 AM [facility] ALKALINE PHOSPHATASE 104 35 - 104 U/L 07/30/2025 9:53 AM [facility] AST 40(H) 0 - 35 U/L 07/30/2025 9:53 AM [facility] ALT 50(H) 0 - 35 U/L 07/30/2025 9:53 AM REVENUE CYCLE MANAGER [facility] GFR >60 >=60 mL/min/1.7 3 sq meter 07/30/2025 9:53 AM REVENUE CYCLE MANAGER [facility] Comment:eGFR calculated with 2020 CKD-EPI equation. Vegetarian diet, extremely high or low muscle mass, and may affect results. Cystatin C with Glomerular Filtration Rate is a suitable alternative for these patients. ANION GAP 12 5 - 20 mmol/L 07/30/2025 9:53 AM REVENUE CYCLE MANAGER [facility] Blood Collection / Unknown 07/30/2025 9:25 AM REVENUE CYCLE MANAGER 07/30/2025 9:31 AM REVENUE CYCLE MANAGER us Lima Perez NP CHEMISTRY ORDERABLES Final Res ult [facility] [id number] [address] [place] [id number] * CT CHEST HIGH RESOLUTION (07/30/2025 8:32 AM REVENUE CYCLE MANAGER) Anatomical Region Laterality Modality Chest Computed Tomogra phy 07/30/2025 8:13 AM REVENUE CYCLE MANAGER Impressions 07/31/2025 2:10 PM REVENUE CYCLE MANAGER IMPRESSION: 1. No acute cardiopulmonary findings. 2. New compression deformity of the T6 vertebral body since the CT of the chest from 06/01/2025. 3. Old compression deformities of the T4 and T5 vertebral bodies, including vertebra plana of the T4 vertebral body. 4. Multiple mildly displaced and nondisplaced fractures of the bilateral ribs are at different stages of healing. These rib fractures were present on the PET/CT from 07/16/2025. 5. Cardiomegaly. 6. Cholecystectomy. Narrative 07/31/2025 2:10 PM REVENUE CYCLE MANAGER Exam: CT CHEST HIGH RESOLUTION Diagnosis/Reason For Exam: Dyspnea, chronic, initial exam. Shortness of breath. Date/Time of Exam: 07/30/2025, 8:32 AM. Comparison: CT of the chest obtained on 06/01/2025. PET CT obtained on 07/16/2025. Technique: Axial high-resolution CT images of the chest were obtained without contrast. Sagittal and coronal reconstructions were created. Contrast: None. FINDINGS: Small areas of linear and subsegmental atelectasis or scarring are present within the left lower lobe of the lung. A small area of linear atelectasis or scarring is located in the periphery of the right upper lobe of lung. No focal consolidation, pleural effusion, or pneumothorax is seen. No enlarged hilar or mediastinal lymph nodes are identified. The heart size is enlarged. The thoracic aorta is normal in caliber. The gallbladder is surgically absent. The bones appear diffusely demineralized. There is vertebral plana of the T4 vertebral body. This is unchanged compared to the CT from 06/01/2025. The T5 vertebral body has a compression deformity with 30% loss of anterior vertebral body height. This is unchanged compared to the CT from 06/01/2025. The T6 vertebral body has a compression deformity with 80% loss of anterior vertebral body height. This is new since the CT from 06/01/2025. The left first, second, third, fourth, sixth, seventh, eighth, ninth ribs have mildly displaced fractures. The left 10th and 11th ribs have nondisplaced fractures. The right first, second, third ribs have minimally displaced fractures. The right fourth and fifth ribs have nondisplaced fractures. The right lateral six rib is mildly displaced fracture. The right lateral sixth and seventh ribs have mildly displaced fractures. The right 11th, 10th, and ninth ribs have nondisplaced fractures with evidence of intraluminal filling. There are moderate degenerative changes of the thoracic spine. There is exaggerated kyphosis of the upper thoracic spine. Procedure Note Sergo South MD - 07/31/2025 Exam: CT CHEST HIGH RESOLUTION Diagnosis/Reason For Exam: Dyspnea, chronic, initial exam. Shortness of breath. Date/Time of Exam: 07/30/2025, 8:32 AM. Comparison: CT of the chest obtained on 06/01/2025. PET CT obtained on 07/16/2025. Technique: Axial high-resolution CT images of the chest were obtained without contrast. Sagittal and coronal reconstructions were created. Contrast: None. FINDINGS: Small areas of linear and subsegmental atelectasis or scarring are present within the left lower lobe of the lung. A small area of linear atelectasis or scarring is located in the periphery of the right upper lobe of lung. No focal consolidation, pleural effusion, or pneumothorax is seen. No enlarged hilar or mediastinal lymph nodes are identified. The heart size is enlarged. The thoracic aorta is normal in caliber. The gallbladder is surgically absent. The bones appear diffusely demineralized. There is vertebral plana of the T4 vertebral body. This is unchanged compared to the CT from 06/01/2025. The T5 vertebral body has a compression deformity with 30% loss of anterior vertebral body height. This is unchanged compared to the CT from 06/01/2025. The T6 vertebral body has a compression deformity with 80% loss of anterior vertebral body height. This is new since the CT from 06/01/2025. The left first, second, third, fourth, sixth, seventh, eighth, ninth ribs have mildly displaced fractures. The left 10th and 11th ribs have nondisplaced fractures. The right first, second, third ribs have minimally displaced fractures. The right fourth and fifth ribs have nondisplaced fractures. The right lateral six rib is mildly displaced fracture. The right lateral sixth and seventh ribs have mildly displaced fractures. The right 11th, 10th, and ninth ribs have nondisplaced fractures with evidence of intraluminal filling. There are moderate degenerative changes of the thoracic spine. There is exaggerated kyphosis of the upper thoracic spine. IMPRESSION: 1. No acute cardiopulmonary findings. 2. New compression deformity of the T6 vertebral body since the CT of the chest from 06/01/2025. 3. Old compression deformities of the T4 and T5 vertebral bodies, including vertebra plana of the T4 vertebral body. 4. Multiple mildly displaced and nondisplaced fractures of the bilateral ribs are at different stages of healing. These rib fractures were present on the PET/CT from 07/16/2025. 5. Cardiomegaly. 6. Cholecystectomy. Jaymie Figueroa MD CT ORDERABLES Final Result * (ABNORMAL) XR DEXA BONE DENSITY AXIAL 1 OR MORE SITES (07/23/2025 2:44 PM REVENUE CYCLE MANAGER) T-SCORE HIP (LEFT) -2.00(A) -1.0 - 1.0 INTERFACE SYSTEM T-SCORE SPINE -1.00 -1.0 - 1.0 INTER FACE SYSTEM Anatomical Region Laterality Modality Digital Radiogra phy, Mammography 07/23/2025 2:45 PM REVENUE CYCLE MANAGER Impressions 07/28/2025 12:55 PM REVENUE CYCLE MANAGER IMPRESSION: 1. Findings consistent with osteopenia with site of lowest density at the femoral neck. 2. Age matched Z-score of greater than -2.0 is within expected range for age and does not indicate accelerated bone demineralization. Definitions: T-score > -0.99 = Normal T-score -1.00 to -2.49 = Osteopenia T-score < -2.50 = Osteoporosis Z-score >-2.0 = Normal Z-score <-2.0 = Low bone density for chronologic age RECOMMENDATIONS: Follow up 1 year after starting or changing therapy recommended. NOF guidelines recommend consideration of FDA-approved medical therapies in patients with FRAX determined 10-year probabilities of hip/major osteoporosis-related fractures equal or greater than 3%/20% respectively. Consider assessing fracture risk using the FRAX analysis tool for guidance of clinical management available online at www.shef.ac.uk/FRAX/. Enter [employer] for Select DXA and the Femoral Neck BMD value. Narrative 07/28/2025 12:55 PM REVENUE CYCLE MANAGER Exam: XR DEXA BONE DENSITY AXIAL 1 OR MORE SITES Reason For Exam: See Diagnosis, osteoporosis screening. Diagnosis: manager terminal (current) use of systemic steroids; Osteopenia of multiple sites; Closed fracture of multiple ribs of left side with routine healing, subsequent encounter Findings: The following absorptiometry data were obtained. The quality of this examination is acceptable with regards to count density, processed images, data display and lack of important artifacts (including but not limited to motion and attenuation artifacts). COMPARISON: 05/31/2023 L1-L3 BMD (g/cm2): 0.909 (Previously 0.930) Adult T-score: -1.0 (Previously -0.8) Adult Z-score: Normal (Previously normal) Left Femoral Neck BMD (g/cm2): 0.580 (Previously 0.643) Adult T-score: -2.4 (Previously -1.9) Adult Z-score: Normal (Previously normal) Left Total Femur BMD (g/cm2): 0.694 (Previously 0.767) Adult T-score: -2.0 (Previously -1.4) Adult Z-score: Normal (Previously normal) (PLEASE NOTE: IF BILATERAL FEMUR EVALUATION WAS PERFORMED, ONLY THE SIDE WITH LOWEST T-SCORE IS REPORTED) Procedure Note Turner Lobo MD - 07/28/2025 Exam: XR DEXA BONE DENSITY AXIAL 1 OR MORE SITES Reason For Exam: See Diagnosis, osteoporosis screening. Diagnosis: manager terminal (current) use of systemic steroids; Osteopenia of multiple sites; Closed fracture of multiple ribs of left side with routine healing, subsequent encounter Findings: The following absorptiometry data were obtained. The quality of this examination is acceptable with regards to count density, processed images, data display and lack of important artifacts (including but not limited to motion and attenuation artifacts). COMPARISON: 05/31/2023 L1-L3 BMD (g/cm2): 0.909 (Previously 0.930) Adult T-score: -1.0 (Previously -0.8) Adult Z-score: Normal (Previously normal) Left Femoral Neck BMD (g/cm2): 0.580 (Previously 0.643) Adult T-score: -2.4 (Previously -1.9) Adult Z-score: Normal (Previously normal) Left Total Femur BMD (g/cm2): 0.694 (Previously 0.767) Adult T-score: -2.0 (Previously -1.4) Adult Z-score: Normal (Previously normal) (PLEASE NOTE: IF BILATERAL FEMUR EVALUATION WAS PERFORMED, ONLY THE SIDE WITH LOWEST T-SCORE IS REPORTED) IMPRESSION: 1. Findings consistent with osteopenia with site of lowest density at the femoral neck. 2. Age matched Z-score of greater than -2.0 is within expected range for age and does not indicate accelerated bone demineralization. Definitions: T-score > -0.99 = Normal T-score -1.00 to -2.49 = Osteopenia T-score < -2.50 = Osteoporosis Z-score >-2.0 = Normal Z-score <-2.0 = Low bone density for chronologic age RECOMMENDATIONS: Follow up 1 year after starting or changing therapy recommended. NOF guidelines recommend consideration of FDA-approved medical therapies in patients with FRAX determined 10-year probabilities of hip/major osteoporosis-related fractures equal or greater than 3%/20% respectively. Consider assessing fracture risk using the FRAX analysis tool for guidance of clinical management available online at www.shef.ac.uk/FRAX/. Enter Optherion for Select DXA and the Femoral Neck BMD value. Oralia Frederick Earl SCHOOL RESOURCE OFFICER DIAGNOSTIC IMAGING ORDER JANESSA Final Result * ECHO COMPLETE - CONTRAST AND STRAIN IF INDICATED (07/23/2025 2:32 PM REVENUE CYCLE MANAGER) Pathologist [facility] EJECTION FRACTION 55 INTERFACE SYSTEM 07/23/2025 2:06 PM REVENUE CYCLE MANAGER Narrative INTERFACE SYSTEM - 07/23/2025 8:04 PM REVENUE CYCLE MANAGER [facility] Radiology Services - Echocardiology [address] [place] [address] Transthoracic Echocardiography Patient: Osiris Smith Study [id number] Cathi Diaz ID: Gender: F : 1970 Age: 55 Room: [facility] Study 07/23/2025 Pt Date: Status: Study 02:06:36 PM CSN #: [id number] Time: Ordering:Lima Perez Bliss Press Operator: Marce Dobbs Indications and History: Elevated brain natriuretic peptide (BNP) level [R79.89 (ICD-10-CM)] Summary and Conclusion: - Left ventricle: Not well visualized. The cavity size is normal. Wall thickness is normal. Global systolic function is normal. For Epic reporting: the left ventricular ejection fraction is 55% by visual assessment. Images are inadequate for LV wall motion assessment. Cannot assess LV diastolic function. - Right ventricle: The cavity size is normal. Systolic function is normal. Impressions: Technically difficult study. Procedure information: Study status: Routine. Procedure: A transthoracic echocardiogram was performed. Image quality was suboptimal. Scanning was performed from the parasternal, apical, subcostal, and suprasternal notch acoustic windows. Study components: M-mode, 2D, complete spectral Doppler, and color Doppler. Height: 170.2cm. Height: 67in. Weight: 91.1kg. Weight: 200.9lb. BMI: 31.5kg/m^2. BSA: 2.1m^2. Study date: 07/23/2025. Study time: 02:06 PM. Cardiac Anatomy: LEFT VENTRICLE: Not well visualized. The cavity size is normal. Wall thickness is normal. Global systolic function is normal. For Epic reporting: the left ventricular ejection fraction is 55% by visual assessment. Images are inadequate for LV wall motion assessment. Cannot assess LV diastolic function. RIGHT VENTRICLE: The cavity size is normal. Systolic function is normal. LEFT ATRIUM: The atrium is normal in size. RIGHT ATRIUM: The atrium is normal in size. AORTIC VALVE: Not well visualized. Mobility is not restricted. There is no stenosis. There is no significant regurgitation. MITRAL VALVE: Mobility is not restricted. There is no evidence for stenosis. There is no significant regurgitation. TRICUSPID VALVE: Not well visualized. Mobility is unrestricted. There is no evidence for stenosis. There is no significant regurgitation. PULMONIC VALVE: Not well visualized. There is no evidence for stenosis. There is no significant regurgitation. PERICARDIUM: There is no pericardial effusion. AORTA: Aortic root: The root is not dilated. Measurements Left ventricle Value Left atrium Value FS, LAX 39 % Vol, S 57 ml FS 39 % Vol/bsa, S 27 ml/m^2 EDV 101 ml ESV 31 ml Aortic valve Value EF 70 % Peak v, S 109 cm/sec EDV/bsa 48 ml/m^2 Mean v, S 78 cm/sec ESV/bsa 15 ml/m^2 VTI, S 20.4 cm EF, 1-p A2C 56 % Mean grad, S 3 mm Hg EF, 1-p A4C 59 % EDV, 2-p 93 ml Mitral valve Value ESV, 2-p 40 ml Peak E/A ratio 0.61 EF, 2-p 57 % EDV/bsa, 2-p 44 ml/m^2 Tricuspid valve Value ESV/bsa, 2-p 19 ml/m^2 TR peak v 308 cm/sec EDV, MM Teich. 101 ml Peak RV-RA grad, S 38 mm Hg EF, MM Teich. 70 % EDV/bsa, MM Teich. 48 ml/m^2 Descending aorta Value EF, MM on 2D Teich. 70 % Prox Eric diam 1.4 cm E/e', lat brien, TDI 6 E/e', med brien, TDI 9 Inferior vena cava Value E/e', avg, TDI 7 Prox diam, exp 1.4 cm Legend: (L) and (H) paramjit values outside specified reference range. Prepared and Electronically Authenticated Jesus Yanez MD Confirmed 07/23/2025 20:04 Procedure Note Jesus Yanez MD - 07/23/2025 [facility] Radiology Services - Echocardiology [address] [address] Transthoracic Echocardiography Patient: Osiris Smith, [id number] Cathi Diaz ID: Gender: F : 1970 Age: 55 Room: [facility] Study 07/23/2025 Pt Date: Status: Study 02:06:36 PM CSN #: [id number] Time: Ordering:Lima Perez Bliss Press Operator: Marce Dobbs Indications and History: Elevated brain natriuretic peptide (BNP) level [R79.89 (ICD-10-CM)] Summary and Conclusion: - Left ventricle: Not well visualized. The cavity size is normal. Wall thickness is normal. Global systolic function is normal. For Epicreporting: the left ventricular ejection fraction is 55% by visual assessment.Images are inadequate for LV wall motion assessment. Cannot assess LVdiastolic function. - Right ventricle: The cavity size is normal. Systolic function isnormal. Impressions: Technically difficult study. Procedure information: Study status: Routine. Procedure: Atransthoracic echocardiogram was performed. Image quality was suboptimal. Scanning was performed from the parasternal, apical, subcostal, and suprasternalnotch acoustic windows. Study components: M-mode, 2D, completespectral Doppler, and color Doppler. Height: 170.2cm. Height: 67in. Weight: 91.1kg. Weight: 200.9lb. BMI: 31.5kg/m^2. BSA: 2.1m^2. Studydate: 07/23/2025. Study time: 02:06 PM. Cardiac Anatomy: LEFT VENTRICLE: Not well visualized. The cavity size is normal. Wall thickness is normal. Global systolic function is normal. For Epicreporting: the left ventricular ejection fraction is 55% by visual assessment. Imagesare inadequate for LV wall motion assessment. Cannot assess LV diastolicfunction. RIGHT VENTRICLE: The cavity size is normal. Systolic function isnormal. LEFT ATRIUM: The atrium is normal in size. RIGHT ATRIUM: The atrium is normal in size. AORTIC VALVE: Not well visualized. Mobility is not restricted. There isno stenosis. There is no significant regurgitation. MITRAL VALVE: Mobility is not restricted. There is no evidence forstenosis. There is no significant regurgitation. TRICUSPID VALVE: Not well visualized. Mobility is unrestricted. There isno evidence for stenosis. There is no significant regurgitation. PULMONIC VALVE: Not well visualized. There is no evidence forstenosis. There is no significant regurgitation. PERICARDIUM: There is no pericardial effusion. AORTA: Aortic root: The root is not dilated. Measurements Left ventricle Value Left atrium Value FS, LAX 39 % Vol, S 57 ml FS 39 % Vol/bsa, S 27 ml/m^2 EDV 101 ml ESV 31 ml Aortic valve Value EF 70 % Peak v, S 109 cm/sec EDV/bsa 48 ml/m^2 Mean v, S 78 cm/sec ESV/bsa 15 ml/m^2 VTI, S 20.4 cm EF, 1-p A2C 56 % Mean grad, S 3 mm Hg EF, 1-p A4C 59 % EDV, 2-p 93 ml Mitral valve Value ESV, 2-p 40 ml Peak E/A ratio 0.61 EF, 2-p 57 % EDV/bsa, 2-p 44 ml/m^2 Tricuspid valve Value ESV/bsa, 2-p 19 ml/m^2 TR peak v 308 cm/sec EDV, MM Teich. 101 ml Peak RV-RA grad, S 38 mm Hg EF, MM Teich. 70 % EDV/bsa, MM Teich. 48 ml/m^2 Descending aorta Value EF, MM on 2D Teich. 70 % Prox Eric diam 1.4 cm E/e', lat brien, TDI 6 E/e', med brien, TDI 9 Inferior vena cava Value E/e', avg, TDI 7 Prox diam, exp 1.4 cm Legend: (L) and (H) paramjit values outside specified reference range. Prepared and Electronically Authenticated Jesus Renata CHOW Confirmed 07/23/2025 20:04 Lima Perez NP US ORDERABLES Final Result INTERFACE SYSTEM Refer to clinic/hospital department * PET TUMOR OR INFECTION IMG W CT SKB (07/16/2025 3:52 PM REVENUE CYCLE MANAGER) Anatomical Region Laterality Modality Nuclear Medicine 07/16/2025 3:53 PM REVENUE CYCLE MANAGER Impressions 07/17/2025 7:23 AM REVENUE CYCLE MANAGER IMPRESSION: 1. No suspicious pulmonary nodules are visualized. No suspicious nohemi or pulmonary uptake is seen otherwise to suggest malignancy. 2. Multiple bilateral rib fractures with resultant increased uptake. There is also increased uptake seen involving the left anterior chest wall and the muscles associated with the right scapula likely from traumatic injury/muscle strain or myositis. 3. Other findings as above This laboratory has been accredited by the Intersocietal Commission for the Accreditation of Nuclear Medicine Laboratories (IAC Nuclear/PET). Narrative 07/17/2025 7:23 AM REVENUE CYCLE MANAGER Radionuclide PET Metabolic Tumor Imaging with CT Attenuation Correction and Anatomic Localization from Skull Base to Mid Thigh: Radiopharmaceutical: [id number] Dose: 11.9 mCi Clinical Indication: Initial treatment strategy to evaluate lung nodule FDG (Q-67-Mxrembrqaifgpzzyed) PET imaging was performed approximately one hour following intravenous infusion of the radiopharmaceutical agent using an integrated 16-slice PET/CT scanner. A noncontrast CT scan was performed for attenuation correction of PET data and for anatomic localization. No contrast was administered. Imaging was performed from the skull base to mid thigh levels with subsequent reconstruction of full trunk, orthogonal view slices in transverse, sagittal, and coronal projections which were reviewed along with dynamic multiimage planar and non attenuation corrected sagittal views. The quality of this examination is acceptable with regards to count density, processed images, data display and lack of important artifacts (including but not limited to motion and attenuation artifacts). Correlation made with diagnostic CT of 06/01/2025 Head/Neck: No suspicious focal uptake. Thorax: Mediastinal blood pool :2.8 Max SUV. No suspicious hypermetabolic activity is seen within the lungs or elsewhere in the soft tissue chest. CT localizer images do not reveal suspicious nodules. Mild left lower lobe atelectasis/consolidation is present. Abdomen/Pelvis: Hepatic background :3.9 Max SUV. No suspicious focal uptake. Mild colonic diverticulosis is noted without evidence of diverticulitis. Appendix is unremarkable. Uterus is absent. Musculoskeletal: Multiple bilateral rib fractures are noted with mildly increased resultant uptake at these locations. The upper left chest wall musculature shows asymmetric thickening and increased uptake in keeping with recent rib fractures/traumatic injury. There is hypermetabolic activity seen involving the right upper back muscles associated with the scapula likely from strain injury or myositis with a max SUV of 6.4. Procedure Note Pola Dao MD - 07/17/2025 Radionuclide PET Metabolic Tumor Imaging with CT Attenuation Correction and Anatomic Localization from Skull Base to Mid Thigh: Radiopharmaceutical: [id number] Dose: 11.9 mCi Clinical Indication: Initial treatment strategy to evaluate lung nodule FDG (M-25-Oskelzsewziedztdpk) PET imaging was performed approximately one hour following intravenous infusion of the radiopharmaceutical agent using an integrated 16-slice PET/CT scanner. A noncontrast CT scan was performed for attenuation correction of PET data and for anatomic localization. No contrast was administered. Imaging was performed from the skull base to mid thigh levels with subsequent reconstruction of full trunk, orthogonal view slices in transverse, sagittal, and coronal projections which were reviewed along with dynamic multiimage planar and non attenuation corrected sagittal views. The quality of this examination is acceptable with regards to count density, processed images, data display and lack of important artifacts (including but not limited to motion and attenuation artifacts). Correlation made with diagnostic CT of 06/01/2025 Head/Neck: No suspicious focal uptake. Thorax: Mediastinal blood pool :2.8 Max SUV. No suspicious hypermetabolic activity is seen within the lungs or elsewhere in the soft tissue chest. CT localizer images do not reveal suspicious nodules. Mild left lower lobe atelectasis/consolidation is present. Abdomen/Pelvis: Hepatic background :3.9 Max SUV. No suspicious focal uptake. Mild colonic diverticulosis is noted without evidence of diverticulitis. Appendix is unremarkable. Uterus is absent. Musculoskeletal: Multiple bilateral rib fractures are noted with mildly increased resultant uptake at these locations. The upper left chest wall musculature shows asymmetric thickening and increased uptake in keeping with recent rib fractures/traumatic injury. There is hypermetabolic activity seen involving the right upper back muscles associated with the scapula likely from strain injury or myositis with a max SUV of 6.4. IMPRESSION: 1. No suspicious pulmonary nodules are visualized. No suspicious nohemi or pulmonary uptake is seen otherwise to suggest malignancy. 2. Multiple bilateral rib fractures with resultant increased uptake. There is also increased uptake seen involving the left anterior chest wall and the muscles associated with the right scapula likely from traumatic injury/muscle strain or myositis. 3. Other findings as above This laboratory has been accredited by the Intersocietal Commission for the Accreditation of Nuclear Medicine Laboratories (IAC Nuclear/PET). Lima Perez NP PE ORDERABLES Final Result * (ABNORMAL) POC GLUCOSE (07/16/2025 2:04 PM REVENUE CYCLE MANAGER) GLUCOSE POC 163(H) 74 - 99 mg/dL 07/16/2025 2:04 PM REVENUE CYCLE MANAGER [facility] SPECIMEN SOURCE, GLUCOSE POC Whole Blood 07/16/2025 2:04 PM REVENUE CYCLE MANAGER [facility] Blood, whole 07/16/2025 2:04 PM REVENUE CYCLE MANAGER 07/16/2025 2:12 PM REVENUE CYCLE MANAGER Lima Perez SAS BI DEVELOPER POINT OF CARE TESTING Final Re sult Performing Organization Address City/[facility]/ZIP Co de Phone Number [facility] SHAHNAZ # [id number] [address] [facility] [place] [address] * HEMOGLOBIN A1C (06/24/2025) Only the most recent of2 resultswithin the time period is included. Pathologist [facility] ABSTRACTED HGB A1C 7.3 % Blood 06/24/2025 Abstract Provider CHEMISTRY ORDERABLES Final Res ult * (ABNORMAL) RESPIRATORY PATHOGEN PCR PANEL (06/20/2025 2:11 PM CDT) [facility] COVID-19 PCR NOT DETECTED Not Detected 06/20/2025 6:41 PM CDT [facility] Parainfluenza 2 by PCR DETECTED(A) Not Detected 06/20/2025 6:41 PM CDT [facility] Upper Respiratory ENTIRE NASOPHARYNX / Unknown Collection / Unknown 06/20/2025 2:11 PM CDT 06/20/2025 4:43 PM CDT Narrative [facility] - 06/20/2025 6:41 PM CDT The [...] MICROBIOLOGY - GENERAL OR DERABLES Final Result [facility] # [id number] [address] [place] [address] [place] [address] * XR FOOT 3+ VW BILAT (06/07/2025 3:00 PM CDT) Anatomical Region Laterality Modality Ankle / Foot Computed Radiogr aphy Narrative 06/11/2025 1:55 PM CDT 3 views of the bilateral feet are significant for a closed, nondisplaced fracture of the 4th and 5th metatarsal heads. There are notable osteoarthritic changes present at the midfoot of both feet and pes planus. us Byron Rubi PA-C DIAGNOSTIC IMAGING ORDERABLES Final Result * XR KNEE 3 VW LEFT (06/07/2025 2:59 PM CDT) Anatomical Region Laterality Modality Lower Extremity Computed Radiogr aphy Narrative 06/11/2025 1:55 PM CDT 3 views of the left knee are negative for any acute fractures or dislocation. There are severe tricompartmental degenerative changes most pronounced in medial and lateral compartments. us Byron Rubi PA-C DIAGNOSTIC IMAGING ORDERABLES Final Result * (ABNORMAL) BASIC METABOLIC PANEL (06/06/2025 11:39 AM CDT) GLUCOSE 254(H) 65 - 99 mg/dL [facility] Comment: Fasting reference interval For someone [...] [facility] Comment: Test Performed at: [facility] [address] [place] [address] Tanvir Montero MD Blood 06/06/2025 11:3 9 AM CDT 06/07/2025 3:04 AM CDT us Oralia Elliott SCHOOL RESOURCE OFFICER CHEMISTRY ORDERABLES Fin al Result [facility] [phone] [facility] [address] [place] [address] * CT CHEST W CONTRAST (06/01/2025 11:42 [...] evidence of any pulmonary infiltrates. Adriana Kauffman DIE ATTACHING MACHINE TENDER CT ORDERABLES Final R esult * (ABNORMAL) URINALYSIS WITH REFLEX MICROSCOPIC (06/01/2025 10:37 AM CDT) COLOR UA Yellow Pale to Dark Yellow 06/01/2025 10:48 AM [facility] CLARITY UA Clear Clear 06/01/2025 10:48 AM [facility] SPECIFIC GRAVITY UA 1.015 1.003 - 1.035 06/01/2025 10:48 AM [facility] PH UA 7.5 5.0 - 8.0 06/01/2025 10:48 AM [facility] LEUKOCYTE ESTERASE UA Negative Negative 06/01/2025 10:48 AM [facility] NITRITE UA Negative Negative 06/01/2025 10:48 AM [facility] PROTEIN UA Trace(A) Negative 06/01/2025 10:48 AM [facility] GLUCOSE UA 2+(A) Negative 06/01/2025 10:48 AM CDT [facility] KETONES UA Negative Negative 06/01/2025 10:48 AM CDT [facility] UROBILINOGEN UA 0.2 <2.0 mg/dL 10:48 AM CDT [facility] BILIRUBIN UA Negative Negative 06/01/2025 10:48 AM CDT [facility] BLOOD UA Negative Negative 06/01/2025 10:48 AM CDT [facility] Urine URINE SPECIMEN OBTAINED BY CLEAN CATCH PROCEDURE / Unknown Collection / Unknown 06/01/2025 10:37 AM CDT 06/01/2025 10:44 AM CDT Adriana Kauffman APRN URINE ORDERABLES Final Result Performing Organization Address City/[facility]/ZIP Co de Phone Number [facility] CLIA # [id number] [address] [place] [id number] * URINE CULTURE (06/01/2025 10:37 AM CDT) Only the most recent of2 resultswithin the time period is included. CULTURE Polymicrobial growth consistent with normal urethral lala and/or colonizing bacteria 06/02/2025 12:31 PM CDT [facility] Urine URINE SPECIMEN OBTAINED BY CLEAN CATCH PROCEDURE / Unknown Collection / Unknown 06/01/2025 10:37 AM CDT 06/01/2025 10:44 AM CDT Adriana Kauffman APRN MICROBIOLOGY - GENERAL ORDERABLES Final Result [facility] CLIA # [id number] [address] [place] [address] [phone] * (ABNORMAL) BRAIN NATRIURETIC PEPTIDE, BNP OR PROBNP (06/01/2025 10:37 AM CDT) Only the most recent of2 resultswithin the time period is included. PROBNP, N TERMINAL 230(H) 0 - 125 pg/mL 06/01/2025 11:02 AM CDT [facility] Comment: INTERPRETIVE COMMENT based on diagnosis: [...] nal Result Performing Organization Address [facility] Co de Phone Number [facility] CLIA # [id number] [address] [place] [address] * (ABNORMAL) C-REACTIVE PROTEIN (05/29/2025 4:35 PM CDT) [facility] CRP 7.7(H) <5.0 mg/L 05/29/2025 4:54 PM CDT [facility] Blood BLOOD SPECIMEN / Unknown Collection / Unknown 05/29/2025 4:35 PM CDT 05/29/2025 4:38 PM CDT us Lima Perez SAS BI DEVELOPER CHEMISTRY ORDERABLES Final Res ult Performing Organization Address [facility] Co de Phone Number [facility] CLIA # [id number] [address] [place] [address] * (ABNORMAL) VITAMIN D 25 HYDROXY (05/16/2025 3:07 PM CDT) VITAMIN D, 25 OH, TOTAL 29(L) 30 - 100 ng/mL [facility] Comment: Vitamin D Status 25-OH Vitamin D: Deficiency: <20 ng/mL Insufficiency: 20 - 29 ng/mL Optimal: > or = 30 ng/mL For 25-OH Vitamin D testing on patients on D2-supplementation and patients for whom quantitation of D2 and D3 fractions is required, the [facility](TM) 25-OH VIT D, (D2,D3), LC/MS/MS is recommended: order code 72023 (patients >2yrs). See Note 1 Note 1 For additional information, please refer to http://education.Executive Channel/faq/OPF258 (This link is being provided for informational/ educational purposes only.) FASTING:NO FASTING: NO Test Performed at: [facility] [address] Tanvir Montero MD Blood 05/16/2025 3:07 PM CDT 05/16/2025 3:10 PM CDT us Alfred Tracy MD CHEMISTRY ORDERABLES Final Res ult Performing Organization Address [facility]/ZIP Co de Phone Number [facility] [phone] [facility] [employer] [address] * TSH (05/16/2025 3:07 PM CDT) TSH 0.43 0.40 - 4.50 mIU/L [facility] Comment: Test Performed at: [employer] [address] [place] [phone] Tanvir Montero MD Blood 05/16/2025 3:07 PM CDT 05/16/2025 3:10 PM CDT Alfred Tracy MD CHEMISTRY ORDERABLES Final Res ult [facility] [phone] [employer] [address] * MICROALBUMIN/CREATININE RATIO, RANDOM UR (05/11/2025 8:38 AM CDT) CREATININE, URINE 232 20 - 275 mg/dL [facility] ALBUMIN, URINE 1.8 See Note: mg/dL [facility] Comment: Reference Range: Reference Range Not established ALB/CREAT RATIO, URINE 8 <30 mg/g creat [facility] Comment: The ADA defines abnormalities in albumin excretion as follows: Albuminuria Category Result (mg/g creatinine) Normal to Mildly increased <30 Moderately increased 30-299 Severely increased > OR = 300 The ADA recommends that at least two of three specimens collected within a 3-6 month period be abnormal before considering a patient to be within a diagnostic category. Test Performed at: [facility] [id number] [place] [phone] Tanvir Montero MD Urine URINE SPECIMEN OBTAINED BY CLEAN CATCH PROCEDURE / Unknown 05/11/2025 8:38 AM CDT 05/12/2025 3:12 AM CDT Nir Paulson MD URINE ORDERABLES Final Re sult [facility] [phone] [employer] [address] * DIABETES EYE EXAM (07/18/2024 12:39 PM REVENUE CYCLE MANAGER) us Abstract Provider HEALTH MAINTENANCE Edited Resu lt - Final * MAMMO 3D SANDRA SCREEN BILAT W OR WO CAD (06/14/2024 3:45 PM CDT) Anatomical Region Laterality Modality Breast Bilateral Mammography, Dig ital Radiography Impressions 06/25/2024 2:39 PM REVENUE CYCLE MANAGER : No mammographic evidence of malignancy. BI-RADS ASSESSMENT: 1 - Negative RECOMMENDATION: Routine annual screening mammography. Narrative 06/25/2024 2:39 PM REVENUE CYCLE MANAGER EXAM: MAMMO SCRN BILAT 3D SANDRA W [...] masses, calcifications, or areas of architectural distortion. Nir Paulson MD MAMMO ORDERABLES Final Re sult * (ABNORMAL) LIPID PANEL (01/04/2024 11:41 AM CDT) CHOLESTEROL 185 <200 mg/dL [facility] HDL 67 > OR = 50 mg/dL [facility] TRIGLYCERIDE 253(H) <150 mg/dL [facility] Comment: If a non-fasting specimen was collected, consider repeat triglyceride testing on a fasting specimen if clinically indicated. Vy et al. J. of Clin. Lipidol. 2015;9:129-169. LDL CALCULATED 85 mg/dL (calc) [facility] Comment: Reference range: <100 Desirable range <100 mg/dL for primary prevention; <70 mg/dL for patients with CHD or diabetic patients with > or = 2 CHD risk factors. LDL-C is now calculated using the Dread-Sykes calculation, which is a validated novel method providing better accuracy than the Friedewald equation in the estimation of LDL-C. Dread SS et al. JOSEF. 2013;310(19): 8587-7746 (http://education.Executive Channel/faq/DPX244) CHOL/HDL RATIO 2.8 <5.0 (calc) [facility] TOTAL NON-HDL CHOL(LDL+VLDL) 118 <130 mg/dL (calc) [facility] Comment: For patients with diabetes plus 1 major ASCVD risk factor, treating to a non-HDL-C goal of <100 mg/dL (LDL-C of <70 mg/dL) is considered a therapeutic option. Test Performed at: [facility] [address] [address] Tanvir Monetro MD Blood 01/04/2024 11:4 1 AM CDT 01/05/2024 3:09 AM CDT Alfred Tracy MD CHEMISTRY ORDERABLES Final Res ult [facility] [phone] [facility] [address] [phone] from Last 3 Months or Most Recently Relevant to Health Maintenance Insurance RX [employer] Medicaid [place] Care Teams Landing Man Relationship Specialty Start Date End Date Nir Paulson MD [address] [place] [address] PCP - General Family Practice 10/13/21
--- OUTSIDE RECORDS SUMMARY | 2025-08-08 20:09 | XMS_ITS | Encounter Summary ---
Author Organization [facility] Address [address] [place] [address] Care Team Providers Care 2Nd Grade Teacher Name Role Phone Nir Paulson MD Primary Care Provider [phone] Encounter Details Date Type Department Care Team (Latest Contact Info) Description 07/24/2025 Results Follow-Up [facility] Family Medicine [place] [address] [facility] [address] [place] [address] Lima Perez NP [address] [place] [address] COMPREHENSIVE METABOLIC PANEL, CBC WITH DIFFERENTIAL Social [...] worry about transportation for future doctor visits, bulk picker medication, etc.? No 2024 Housing Stability [...] on file Legal Sex Female 3:40 AM COMPUTER CUSTOMER SUPPORT SPECIALIST Gender Identity Not on file Sexual Orientation Not on file documented as of this encounter Miscellaneous Notes * Result Encounter Note - Lima Perez NP - 07/24/2025 10:43 AM COMPUTER CUSTOMER SUPPORT SPECIALIST Blood count looks good overall. Kidney function and electrolytes are noted to be normal. UTER CUSTOMER SUPPORT SPECIALIST documented in this encounter Plan of Treatment Upcoming Encounters Date Type Department Care Team (Late st Contact Info) Description 08/13/2025 9:15 AM COMPUTER CUSTOMER SUPPORT SPECIALIST Office Visit [facility] Pulmonology [address] [place] [address] Jaymie Figueroa MD [address] [place] [address] 08/27/2025 2:20 PM COMPUTER CUSTOMER SUPPORT SPECIALIST Telephone Check Up [facility] Neurosurgery [address] [place] [address] Martínez Han MD [address] [place] [address] 11/07/2025 2:40 PM CDT Office Visit [facility] Family Medicine [place] [address] [address] Nir Paulson MD [address] [address] 11/13/2025 2:30 PM CDT Office Visit [facility] [address] [place] [address] Alfred Tracy MD [address] [place] [address] 01/07/2026 1:00 PM CDT Office Visit [facility] [address] [place] [address] Berlin Summers PA [address] [place] [address] 01/15/2026 8:45 AM CDT Office Visit [facility] Neurology - [place] [address] [place] [address] Martínez Han MD [address] [place] [address] Yaneth Bass MD [address] [place] [address] 08/13/2026 3:00 PM COMPUTER CUSTOMER SUPPORT SPECIALIST Office Visit [facility] OBLATRICIAN-Chriss Ruddnn Wilkinson [address] [place] [address] Nanda Mg NP [address] [place] [address] documented as of this encounter Visit Diagnoses Not on filedocumented in this encounter Care Teams 2Nd Grade Teacher Relationship Specialty Start Date End Date Nir Paulson MD [address] [facility] [place] [phone] PCP - General Family Practice 10/13/21 documented as of this encounter
--- OUTSIDE RECORDS SUMMARY | 2025-08-08 20:10 | XMS_ITS | Encounter Summary ---
Author Organization [facility] Address [address] [place] [address] Care Team Providers Care Medical Officer Name Role Phone Veronica Carvajal MD Primary Care Provider Encounter Details Date Type Department Care Team (Latest Contact Info) Description 02/14/2001 Outpatient Historical HIS [facility] Nir Soto MD [address] [place] [id number] Headache(784.0) (Primary Dx) Social History Tobacco Use Types Packs/Day Years Used Date Smoking Tobacco: Never Assessed Comments Unknown Sex and Gender Information Value Date Recorded Sex Assigned at Not on file 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 JOB ORDER CLERK Gender Identity Not on file Sexual Orientation Not on file documented as of this encounter Plan of Treatment Not on file documented as of this encounter Visit Diagnoses Diagnosis Headache(784.0)- Primary Headache documented in this encounter Care Teams Medical Officer Relationship Specialty Start Date End Date Veronica Carvajal MD [address] [facility] 60 [place] [address] PCP - General Family Practice 11/20/20 documented as of this encounter
--- OUTSIDE RECORDS SUMMARY | 2025-08-08 20:10 | XMS_ITS | Encounter Summary ---
Author Organization [facility] Address [address] [place] [address] Care Team Providers Care Social Sciences Instructor Name Role Phone Veronica Carvajal MD Primary Care Provider [phone] Encounter Details Date Type Department Care Team (Latest Contact Info) Description 11/05/2000 Outpatient Historical HIS [facility] Nir Soto MD [address] [place] [id number] Headache(784.0) (Primary Dx); Depressive disorder, not elsewhere classified Social History Tobacco Use Types Packs/Day Years Used Date Smoking Tobacco: Never Assessed Comments Unknown Sex and Gender Information Value Date Recorded Sex Assigned at Not on file 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 CHILD CARE SITTER Gender Identity Not on file Sexual Orientation Not on file documented as of this encounter Plan of Treatment Not on file documented as of this encounter Visit Diagnoses Diagnosis Headache(784.0)- Primary Headache Depressive disorder, not elsewhere classified documented in this encounter Care Teams Social Sciences Instructor Relationship Specialty Start Date End Date Veronica Carvajal MD [address] [facility] [address] [place] [address] PCP - General Family Practice 11/20/20 documented as of this encounter
--- OUTSIDE RECORDS SUMMARY | 2025-08-08 20:10 | XMS_ITS | Encounter Summary ---
Author Organization [facility] Address [address] [place] [address] Care Team Providers Care Success Coach Name Role Phone Veronica Carvajal MD Primary Care Provider [phone] Reason for Referral * Outpatient Services (Routine) - Closed Specialty Diagnoses / Procedures Referred By Contac t Referred To Contact Diagnoses Inconclusive mammography Procedures MAMMO BREAST US LEFT LTD Tom Steen Jr., MD Phone: tel: fax: [facility] Pre-Registration [place] CALL TO MAKE APPOINTMENT ONLY [address] [place] [address] Phone: tel: fax: Referral ID Status Reason Start Date Expiration Date Visits Re quested Visits Authorized [id number] Closed 05/25/2017 06/25/2018 1 1 * Outpatient Services (Routine) - Closed Specialty Diagnoses / Procedures Referred By Contac t Referred To Contact Diagnoses Inconclusive mammography Procedures MAMMO DIAG UNI LEFT 3D SANDRA W OR WO CAD Tom Steen Jr., MD Phone: tel: fax: [facility] Pre-Registration [place] CALL TO MAKE APPOINTMENT ONLY [address] [place] [address] Phone: tel: fax: Referral ID Status Reason Start Date Expiration Date Visits Re quested Visits Authorized [id number] Closed 05/25/2017 06/25/2018 1 1 Encounter Details Date Type Department Care Team (Latest Contact Info) Description 05/25/2017 Ancillary Orders [facility] Breast Center [address] [place] [address] Tom Steen Jr., MD [address] [place] [phone] Inconclusive mammography Social History Tobacco Use Types Packs/Day Years Used Date Smoking Tobacco: Former Cigarettes 0.5 12 0 02/02/1984 - 02/02/1996 Smokeless Tobacco: Never Alcohol Use Standard Drinks/Week Comments No 0 (1 standard drink = 0.6 oz pur e alcohol) Comments No Sex and Gender Information Value Date Recorded Sex Assigned at Not on file 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 Patient received a result/recommendation letter. [id number] Procedure Note Natanael Salazar MD - 06/01/2017 [...] breast biopsy. Patient received a result/recommendation letter. [id number] Tom Steen Jr., MD MAMMO ORDERABLES Jodie [...] breast biopsy. Patient received a result/recommendation letter. [id number] Procedure Note Natanael Salazar MD - 06/01/2017 [...] breast biopsy. Patient received a result/recommendation letter. [id number] Tom Steen Jr., MD MAMMO ORDERABLES Jodie l Result documented in this encounter Visit Diagnoses Diagnosis Inconclusive mammography Inconclusive mammogram Inconclusive mammography Inconclusive mammogram Inconclusive mammography Inconclusive mammogram documented in this encounter Care Teams Success Coach Relationship Specialty Start Date End Date Veronica Carvajal MD [address] [phone] PCP - General Family Practice 11/20/20 documented as of this encounter
--- OUTSIDE RECORDS SUMMARY | 2025-08-08 20:10 | XMS_ITS | Encounter Summary ---
Author Organization [facility] Address [address] [place] [address] Care Team Providers Care Data Control Clerk Supervisor Name Role Phone Veronica Carvajal MD Primary Care Provider Encounter Details Date Type Department Care Team (Latest Contact Info) Description 05/11/2000 Outpatient Historical HIS [facility] Nir Soto MD [address] [place] [id number] Headache(784.0) (Primary Dx); Depressive disorder, not elsewhere classified Social History Tobacco Use Types Packs/Day Years Used Date Smoking Tobacco: Never Assessed Comments Unknown Sex and Gender Information Value Date Recorded Sex Assigned at Not on file 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
--- OUTSIDE RECORDS SUMMARY | 2025-08-08 20:10 | XMS_ITS | Encounter Summary ---
Author Organization [facility] Address [address] [place] [address] Care Team Providers Care Data Technician Name Role Phone Nir Paulson MD Primary Care Provider [phone] Reason for Visit * Reason Comments Med Refill Encounter Details Date Type Department Care Team (Late st Contact Info) Description 08/01/2025 Refill [facility] Orthopedics - Orthopedic [facility] [address] [place] [address] Byron Rubi PA-C [address] [place] [address] Social History Tobacco Use Types Packs/Day Years [...] worry about transportation for future doctor visits, draft roller picker medication, etc.? No 2024 Housing [...] on file Legal Sex Female 3:40 AM HULL AND DECK REMOVER Gender Identity Not on file Sexual Orientation Not on file documented as of this encounter Plan of Treatment Upcoming Encounters Date Type Department Care Team (Late st Contact Info) Description 08/13/2025 9:15 AM HULL AND DECK REMOVER Office Visit [facility] Pulmonology [address] [place] [address] Jaymie Figueroa MD [address] [place] [address] 08/27/2025 2:20 PM HULL AND DECK REMOVER Telephone Check Up [facility] Neurosurgery [address] [place] [address] Martínez Han MD [address] [place] [address] 11/07/2025 2:40 PM CDT Office Visit [facility] Family Medicine [place] [address] [address] Nir Paulson MD [address] [address] 11/13/2025 2:30 PM CDT Office Visit [facility] Endocrinology [facility] [address] [place] [address] Alfred Tracy MD [address] [place] [address] 01/07/2026 1:00 PM CDT Office Visit [facility] [address] [place] [address] Berlin Summers PA [address] [place] [address] 01/15/2026 8:45 AM CDT Office Visit [facility] Neurology - [place] [address] [place] [address] Martínez Han MD [address] [place] [address] Yaneth Bass MD [address] [place] [address] 08/13/2026 3:00 PM HULL AND DECK REMOVER Office Visit [facility] HANSTamaraChriss Zheng [place] [address] [place] [address] Nanda Mg, COAL TRAMMER [address] [place] [address] documented as of this encounter Visit Diagnoses Not on filedocumented in this encounter Care Teams Data Technician Relationship Specialty Start Date End Date Nir Paulson MD [address] [facility] [place] [address] PCP - General Family Practice 10/13/21 documented as of this encounter
--- OUTSIDE RECORDS SUMMARY | 2025-08-08 20:10 | XMS_ITS | Encounter Summary ---
Author Organization [facility] Address [address] [place] [address] Care Team Providers Care Perinatal Instructor Name Role Phone Veronica Carvajal MD Primary Care Provider Encounter Details Date Type Department Care Team (Latest Contact Info) Description 10/09/2002 Outpatient Historical HIS [facility] Nir Soto MD [address] [place] [phone] CHEST PAIN NOS (Primary Dx); SOMATIC DYSFUNCTION NEC Social History Tobacco Use Types Packs/Day Years Used Date Smoking Tobacco: Never Assessed Comments Unknown Sex and Gender Information Value Date Recorded Sex Assigned at Not on file 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
--- OUTSIDE RECORDS SUMMARY | 2025-08-08 20:10 | XMS_ITS | Encounter Summary ---
Author Organization [facility] Address [address] [place] [address] Care Team Providers Care Disabilities Services Officer Name Role Phone Veronica Carvajal MD Primary Care Provider Encounter Details Date Type Department Care Team (Latest Contact Info) Description 05/15/1999 Outpatient Historical HIS [facility] Nir Soto MD [address] [place] [address] Other diseases of trachea and bronchus, not elsewhere classified (Primary Dx); Acute upper respiratory infections of unspecified site Social History Tobacco Use Types Packs/Day Years Used Date Smoking Tobacco: Never Assessed Comments Unknown Sex and Gender Information Value Date Recorded Sex Assigned at Not on file 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
--- OUTSIDE RECORDS SUMMARY | 2025-08-08 20:10 | XMS_ITS | Encounter Summary ---
Author Organization [facility] Address 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 White blood cell count is elevated will send in oral antibiotics. CAP MACHINE OPERATOR documented in this encounter Plan of Treatment Upcoming Encounters Date Type Department Care Team (Late st Contact Info) Description 08/13/2025 9:15 AM GRIDCAP MACHINE OPERATOR Office Visit [facility] Pulmonology [address] [place] [address] Jaymie Figueroa MD [address] [place] [address] 08/27/2025 2:20 PM GRIDCAP MACHINE OPERATOR Telephone Check Up [facility] Neurosurgery [address] [place] [address] [place] [address] Martínez Han MD [address] [place] [address] 11/07/2025 2:40 PM CDT Office Visit [facility] Family Medicine [place] [address] [address] Nir Paulson MD [address] [address] 11/13/2025 2:30 PM CDT Office Visit [facility] [address] [place] [address] Alfred Tracy MD [address] [place] [address] 01/07/2026 1:00 PM CDT [facility] Visit [facility] [address] [place] [address] Berlni Summers PA [address] [place] [address] 01/15/2026 8:45 AM CDT Office Visit [facility] Neurology - [place] [address] [place] [address] Martínez Han MD [address] [place] [address] Yaneth Bass MD [address] [place] [address] 08/13/2026 3:00 PM GRIDCAP MACHINE OPERATOR Office Visit [facility] OBMoris Ruddnn Olivier [address] [place] [address] Nanda Mg NP [address] [place] [address] documented as of this encounter Visit Diagnoses Diagnosis Shortness of breath- Primary Wheezing documented in this encounter Care Teams Therapist Respiratory Relationship Specialty Start Date End Date Nir Paulson MD [address] [facility] [place] [phone] PCP - General Family Practice 10/13/21 documented as of this encounter
--- OUTSIDE RECORDS SUMMARY | 2025-08-08 20:10 | XMS_ITS | Encounter Summary ---
Author Organization [facility] Address [address] [place] [address] Care Team Providers Care Drywall Contractor Name Role Phone Nir Paulson MD Primary Care Provider [phone] Reason for Visit * Reason Onset Date Comments Lab Results 07/08/2025 Encounter Details Date Type Department Care Team (Latest Contact Info) Description 07/08/2025 Results Follow-Up [facility] Family Medicine [place] [address] [facility] [address] [place] [address] Lima Perez NP [address] [place] [address] CBC WITH DIFFERENTIAL Social History [...] worry about transportation for future doctor visits, package pick up medication, etc.? No 2024 Housing Stability Answer [...] on file Legal Sex Female 3:40 AM CHRISTMAS TREE CONTRACTOR Gender Identity Not on file Sexual Orientation Not on file documented as of this encounter Miscellaneous Notes * Telephone Encounter - Suri Palacios RN - 07/10/2025 8:04 AM CHRISTMAS TREE CONTRACTOR 07/10/2025 8:04 AM Called and notified patient of results. Voiced understanding. Patient says that she is not supposedto take the levofloxacin due to tendon problems. Suri SALAMANCA STMAS TREE CONTRACTOR * Telephone Encounter - Suri Palacios RN - 07/09/2025 4:22 PM CHRISTMAS TREE CONTRACTOR 07/09/2025 4:22 PM No answer. Left voice mail/message that communication regarding results can be accessed via [employer] . No need to return call unless specific questions. If patient/caregiver calls back, contact center may tell caller White blood cell count is noted to be 11. Will change antibiotics and sent to pharmacy. Recommend repeating lab work on Wednesday we will place orders for lab work . Suri SALAMANCA STMAS TREE CONTRACTOR * Telephone Encounter - Suri Palacios RN - 07/09/2025 9:19 AM CHRISTMAS TREE CONTRACTOR 07/09/2025 9:19 AM No answer. Left voice mail/message that communication regarding results can be accessed via [employer] . No need to return call unless specific questions. If patient/caregiver calls back, contact center may tell caller White blood cell count is noted to be 11. Will change antibiotics and sent to pharmacy. Recommend repeating lab work on Wednesday we will place orders for lab work . Suri RN STMAS TREE CONTRACTOR * Telephone Encounter - Suri Palacios RN - 07/09/2025 9:19 AM CHRISTMAS TREE CONTRACTOR ----- Message from Lima Perez sent at 07/08/2025 11:10 AM CHRISTMAS TREE CONTRACTOR ----- Attempted to call patient via telephone, however, voicemail picked up. White blood cell count is noted to be 11. Will change antibiotics and sent to pharmacy. Recommend repeating lab work on Wednesday we will place orders for lab work. ----- Message ----- From: [place] Enrique Incoming [facility] Results Sent: 07/07/2025 9:02 AM CHRISTMAS TREE CONTRACTOR To: Lima Perez NP STMAS TREE CONTRACTOR * Result Encounter Note - Lima Perez NP - 07/08/2025 11:10 AM CHRISTMAS TREE CONTRACTOR Attempted to call patient via telephone, however, voicemail picked up. White blood cell count is noted to be 11. Will change antibiotics and sent to pharmacy. Recommend repeating lab work on Wednesday we will place orders for lab work. STMAS TREE CONTRACTOR documented in this encounter Plan of Treatment Upcoming Encounters Date Type Department Care Team (Late st Contact Info) Description 08/13/2025 9:15 AM CHRISTMAS TREE CONTRACTOR Office Visit [facility] Pulmonology [address] [place] [address] Jaymie Figueroa MD [address] [place] [address] 08/27/2025 2:20 PM CHRISTMAS TREE CONTRACTOR Telephone Check Up [facility] Neurosurgery [address] [place] [address] Martínez Han MD [address] [place] [address] 11/07/2025 2:40 PM CDT Office Visit [facility] Medicine [place] [address] [place] [address] Nir Paulson MD [address] [place] [address] 11/13/2025 2:30 PM CDT Office Visit [facility] [address] [place] [address] Alfred Tracy MD [address] [place] [address] 01/07/2026 1:00 PM CDT Office Visit [facility] [address] [place] [address] Berlin Summers PA [address] [place] [address] 01/15/2026 8:45 AM CDT Office Visit [facility] [place]rology [place] [address] [place] [address] Martínez Han MD [address] [place] [address] Yaneth Bass MD [address] [place] [address] 08/13/2026 3:00 PM CHRISTMAS TREE CONTRACTOR Office Visit [facility] Douglas Zheng Olivier [address] [place] [address] WorkmanNanda, WIG MAKER [address] [address] documented as of this encounter Results * (ABNORMAL) CBC WITH DIFFERENTIAL (07/11/2025 3:12 PM CHRISTMAS TREE CONTRACTOR) WBC 9.2 3.8 - 10.8 Thousand/u L [facility] RBC 3.98 3.80 - 5.10 Million/uL [facility] HEMOGLOBIN 11.8 11.7 - 15.5 g/dL [facility] HEMATOCRIT 38.0 35.0 - 45.0 % [facility] MCV 95.5 80.0 - 100.0 fL [facility] MCH 29.6 27.0 - 33.0 pg [facility] MCHC 31.1(L) 32.0 - 36.0 g/dL [facility] Comment: For adults, a slight decrease in the calculated MCHC value (in the range of 30 to 32 g/dL) is most likely not clinically significant; however, it should be interpreted with caution in correlation with other red cell parameters and the patient's clinical condition. RDW 13.9 11.0 - 15.0 % [facility] PLATELETS 417(H) 140 - 400 Thousand/u L [facility] MPV 8.8 7.5 - 12.5 fL [facility] NEUTROPHIL ABSOLUTE 7,848(H) 1,500 - 7,800 cells/uL [facility] LYMPHOCYTE ABSOLUTE 856 850 - 3,900 cells/uL [facility] MONOCYTE ABSOLUTE 460 200 - 950 cells/uL [facility] EOSINOPHIL ABSOLUTE 0(L) 15 - 500 cells/uL [facility] BASOPHILS ABSOLUTE 37 0 - 200 cells/uL [facility] NEUTROPHIL 85.3 % [facility] LYMPHOCYTES 9.3 % [facility] MONOCYTE 5.0 % [facility] EOSINOPHILS 0.0 % [facility] BASOPHILS 0.4 % [facility] Comment: Test Performed at: [facility] [address] [place] [address] Tanvir Montero MD Blood 07/11/2025 3:12 PM CHRISTMAS TREE CONTRACTOR 07/12/2025 3:58 AM CHRISTMAS TREE CONTRACTOR us Lima Perez WIG MAKER HEMATOLOGY ORDERABLES Final Re sult [facility] [phone] [facility] [address] [place] [address] documented in this encounter Visit Diagnoses Diagnosis Productive cough- Primary Cough Leukocytosis, unspecified type documented in this encounter Care Teams Drywall Contractor Relationship Specialty Start Date End Date Nir Paulson MD [address] [facility] [place] [phone] PCP - General Family Practice 10/13/21 documented as of this encounter
--- OUTSIDE RECORDS SUMMARY | 2025-08-08 20:10 | XMS_ITS | Encounter Summary ---
Author Organization [facility] Address [address] [place] [address] Care Team Providers Care Managing Jeweler Name Role Phone Veronica Carvajal MD Primary Care Provider [phone] Encounter Details Date Type Department Care Team (Latest Contact Info) Description 04/10/2002 Outpatient Historical HIS [facility] Nir Soto MD [address] [place] [address] TENSION HEADACHE (Primary Dx) Social History Tobacco Use Types Packs/Day Years Used Date Smoking Tobacco: Never Assessed Comments Unknown Sex and Gender Information Value Date Recorded Sex Assigned at Not on file 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
--- OUTSIDE RECORDS SUMMARY | 2025-08-08 20:10 | XMS_ITS | Encounter Summary ---
Author Organization [facility] Address [address] [place] [address] Care Team Providers Care Assembler Musical Equipment Name Role Phone Veronica Carvajal MD Primary Care Provider Encounter Details Date Type Department Care Team (Latest Contact Info) Description 06/15/2000 Outpatient Historical HIS [facility] Nir Soto MD [address] [place] [address] Allergic rhinitis, cause unspecified (Primary Dx) Social History Tobacco Use Types Packs/Day Years Used Date Smoking Tobacco: Never Assessed Comments Unknown Sex and Gender Information Value Date Recorded Sex Assigned at Not on file 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
--- OUTSIDE RECORDS SUMMARY | 2025-08-08 20:10 | XMS_ITS | Encounter Summary ---
Author Organization [facility] Address [address] [place] [address] Care Team Providers Care Tank Truck Milk Receiver Name Role Phone Veronica Carvajal MD Primary Care Provider Encounter Details Date Type Department Care Team (Latest Contact Info) Description 04/13/2000 Outpatient Historical HIS [facility] Nir Soto MD [address] [place] [address] Headache(784.0) (Primary Dx); Tension headache; Anxiety state, unspecified; Depressive disorder, not elsewhere classified Social History Tobacco Use Types Packs/Day Years Used Date Smoking Tobacco: Never Assessed Comments Unknown Sex and Gender Information Value Date Recorded Sex Assigned at Not on file 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 BOOT LINER 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
--- OUTSIDE RECORDS SUMMARY | 2025-08-08 20:10 | XMS_ITS | Encounter Summary ---
Author Organization [facility] Address [address] [place] [address] Care Team Providers Care Automatic Paint Sprayer Operator Name Role Phone Veronica Carvajal MD Primary Care Provider [phone] Reason for Referral * Outpatient Services (Routine) - Closed Specialty Diagnoses / Procedures Referred By Contac t Referred To Contact Diagnoses Pain Procedures XR FLUORO LESS THAN 1 HOUR Salvador Baca MD [address] [address] Phone: tel: fax: Referral ID Status Reason Start Date Expiration Date Visits Re quested Visits Authorized [id number] Closed 03/18/2017 04/18/2018 1 1 Encounter Details Date Type Department Care Team (Late st Contact Info) Description 03/18/2017 Ancillary Orders [facility] Radiology [place] [address] [place] [address] Salvador Baca MD [address] [address] Pain Social History Tobacco Use Types Packs/Day Years Used Date Smoking Tobacco: Former Cigarettes 0.5 12 0 02/02/1984 - 02/02/1996 Smokeless Tobacco: Never Alcohol Use Standard Drinks/Week Comments No 0 (1 standard drink = 0.6 oz pur e alcohol) Comments No Sex and Gender Information Value Date Recorded Sex Assigned at Not on file 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 CHILD WELFARE DIRECTOR Gender Identity Not on file Sexual [...] 1 HOUR (03/18/2017 10:58 AM CDT) Narrative Marnie Kumar Gabriela, RT - 03/18/2017 11:34 PM CDT Order information only. Exam was auto-finalized. Salvador Baca MD DIAGNOSTIC IMAGING ORDERAB LES Final Result documented in this encounter Visit Diagnoses Diagnosis Pain Generalized pain Pain Generalized pain documented in this encounter Care Teams Automatic Paint Sprayer Operator Relationship Specialty Start Date End Date Veronica Carvajal MD [address] [place] [address] PCP - General Family Practice 11/20/20 documented as of this encounter
--- OUTSIDE RECORDS SUMMARY | 2025-08-08 20:10 | XMS_ITS | Encounter Summary ---
Author Organization [facility] Address [address] [place] [address] Care Team Providers Care Car Whacker Name Role Phone Nir Paulson MD Primary Care Provider [phone] Encounter Details Date Type Department Care Team (Late st Contact Info) Description 07/30/2025 Lab Requisition [facility] General Laboratory Services [place] [address] [place] [address] Lima Perez NP [address] [place] [address] Shortness of breath Social History Tobacco Use Types Packs/Day Years [...] worry about transportation for future doctor visits, pharmacy picking tech medication, etc.? No 2024 Housing Stability Answer Date Recorded Do you worry you won t have a steady place to sleep or struggle to pay rent or mortgage? No 06/01/2025 Utility Needs Answer Date Recorded Do you have difficulty payin g for utility costs (Open Places, water or gas bills)? No 06/01/2025 Medication [...] file Legal Sex Female 3:40 AM PAINTER BOTTOM Gender Identity Not on file Sexual Orientation Not on file documented as of this encounter Plan of Treatment Upcoming Encounters Date Type Department Care Team (Late st Contact Info) Description 08/13/2025 9:15 AM PAINTER BOTTOM Office Visit [facility] Pulmonology [address] [place] [address] Jaymie Figueroa MD [address] [place] [address] 08/27/2025 2:20 PM PAINTER BOTTOM Telephone Check Up [facility] Neurosurgery [address] [place] [address] Martínez Han MD [address] [place] [address] 11/07/2025 2:40 PM CDT Office Visit [facility] Family Medicine [place] [address] [address] Nir Paulson MD [address] [address] 11/13/2025 2:30 PM CDT Office Visit [facility] Endocrinology [facility] [address] [place] [address] Alfred Tracy MD [address] [place] [address] 01/07/2026 1:00 PM CDT Office Visit [facility] [address] [place] [address] Berlin Summers PA [address] [place] [address] 01/15/2026 8:45 AM CDT Office Visit [facility] Neurology - [place] [address] [place] [address] Martínez Han MD [address] [place] [address] Yaneth Bass MD [address] [place] [address] 08/13/2026 3:00 PM PAINTER BOTTOM Office Visit [facility] Douglas [place] [address] [place] [address] Nanda Mg, CONSTANZA [address] [place] [address] documented as of this encounter Procedures Procedure Name Priority Date/Time Associated Diagnosis Comments CBC WITH DIFFERENTIAL Stat 07/30/2025 9:25 AM PAINTER BOTTOM Shortness of breath COMPREHENSIVE METABOLIC PANEL Stat 07/30/2025 9:25 AM PAINTER BOTTOM Shortness of breath documented in this encounter Results * (ABNORMAL) COMPREHENSIVE METABOLIC PANEL (07/30/2025 9:25 AM PAINTER BOTTOM) SODIUM 137 136 - 145 mmol/L 07/30/2025 9:53 AM PAINTER BOTTOM [facility] POTASSIUM 4.2 3.5 - 5.1 mmol/L 07/30/2025 9:53 AM [facility] CHLORIDE 99 98 - 107 mmol/L 07/30/2025 9:53 AM [facility] CO2 26 22 - 29 mmol/L 07/30/2025 9:53 AM [facility] CALCIUM 9.8 8.6 - 10.0 mg/dL 07/30/2025 9:53 AM [facility] BUN 13 6 - 20 mg/dL 07/30/2025 9:53 AM [facility] CREATININE 0.67 0.51 - 0.95 mg/dL 07/30/2025 9:53 AM [facility] GLUCOSE 183(H) 74 - 99 mg/dL 07/30/2025 9:53 AM [facility] TOTAL PROTEIN 6.8 6.6 - 8.7 g/dL 07/30/2025 9:53 AM [facility] ALBUMIN 4.4 3.5 - 5.2 g/dL 07/30/2025 9:53 AM [facility] BILIRUBIN TOTAL 0.3 0.0 - 1.2 mg/dL 07/30/2025 9:53 AM [facility] ALKALINE PHOSPHATASE 104 35 - 104 U/L 07/30/2025 9:53 AM [facility] AST 40(H) 0 - 35 U/L 07/30/2025 9:53 AM [facility] ALT 50(H) 0 - 35 U/L 07/30/2025 9:53 AM [facility] GFR >60 >=60 mL/min/1.7 3 sq meter 07/30/2025 9:53 AM [facility] Comment:eGFR calculated with 2020 CKD-EPI equation. Vegetarian diet, extremely high or low muscle mass, and may affect results. Cystatin C with Glomerular Filtration Rate is a suitable alternative for these patients. ANION GAP 12 5 - 20 mmol/L 07/30/2025 9:53 AM [facility] Blood Collection / Unknown 07/30/2025 9:25 AM PAINTER BOTTOM 07/30/2025 9:31 AM PAINTER BOTTOM Lima Perez NP CHEMISTRY ORDERABLES Final Res ult [facility] CLIA # [id number] [address] [place] [id number] * (ABNORMAL) CBC WITH DIFFERENTIAL (07/30/2025 9:25 AM PAINTER BOTTOM) WBC 13.9(H) 4.0 - 10.0 K/uL 07/30/2025 9:36 AM [facility] RBC 4.49 3.93 - 5.22 M/uL 07/30/2025 9:36 AM [facility] HEMOGLOBIN 13.0 11.2 - 15.7 g/dL 07/30/2025 9:36 AM [facility] HEMATOCRIT 40.7 34.1 - 44.9 % 07/30/2025 9:36 AM [facility] MCV 90.6 79.4 - 94.8 fL 07/30/2025 9:36 AM [facility] MCH 29.0 25.6 - 32.2 pg 07/30/2025 9:36 AM [facility] MCHC 31.9(L) 32.2 - 35.5 g/dL 07/30/2025 9:36 AM [facility] RDW 14.6(H) 11.0 - 14.5 % 07/30/2025 9:36 AM [facility] RDW-STDEV 48.4 36.9 - 56.9 fL 07/30/2025 9:36 AM [facility] PLATELETS 410(H) 163 - 337 K/uL 07/30/2025 9:36 AM [facility] MPV 8.5(L) 10.0 - 14.8 fL 07/30/2025 9:36 AM [facility] NEUTROPHILS 87(H) 34 - 71 % 07/30/2025 9:36 AM [facility] LYMPHOCYTES 9(L) 19 - 52 % 07/30/2025 9:36 AM [facility] MONOCYTES 3(L) 5 - 13 % 07/30/2025 9:36 AM [facility] EOSINOPHILS 0(L) 1 - 6 % 07/30/2025 9:36 AM [facility] BASOPHILS 0 0 - 1 % 07/30/2025 9:36 AM [facility] IMMATURE GRANULOCYTES 1 % 07/30/2025 9:36 AM [facility] NEUTROPHIL ABSOLUTE 12.04(H) 1.56 - 6.13 K/uL 07/30/2025 9:36 AM [facility] LYMPHOCYTE ABSOLUTE 1.20 1.20 - 3.40 K/uL 07/30/2025 9:36 AM [facility] MONOCYTE ABSOLUTE 0.47(H) 0.24 - 0.36 K/uL 07/30/2025 9:36 AM [facility] EOSINOPHIL ABSOLUTE 0.01(L) 0.04 - 0.36 K/uL 07/30/2025 9:36 AM [facility] BASOPHILS ABSOLUTE 0.04 0.01 - 0.08 K/uL 07/30/2025 9:36 AM [facility] IMMATURE GRANULOCYTES ABSOLUTE 0.13 K/uL 07/30/2025 9:36 AM [facility] Blood Collection / Unknown 07/30/2025 9:25 AM PAINTER BOTTOM 07/30/2025 9:31 AM PAINTER BOTTOM us Lima Perez WATER FILTRATION TECHNICIAN HEMATOLOGY ORDERABLES Final Re sult [facility] CLIA # [id number] [address] [place] [id number] documented in this encounter Visit Diagnoses Diagnosis Shortness of breath documented in this encounter Care Teams Car Whacker Relationship Specialty Start Date End Date Nir Paulson MD [address] [facility] [place] [phone] PCP - General Family Practice 10/13/21 documented as of this encounter
--- OUTSIDE RECORDS SUMMARY | 2025-08-08 20:10 | XMS_ITS | Encounter Summary ---
Author Organization [facility] Address [address] [place] [address] Care Team Providers Care Head Neck Surgeon Name Role Phone Veronica Carvajal MD Primary Care Provider Encounter Details Date Type Department Care Team (Latest Contact Info) Description 05/28/2000 Outpatient Historical HIS [facility] Nir Soto MD [address] [place] [address] Acute sinusitis, unspecified (Primary Dx); Acute bronchitis Social History Tobacco Use Types Packs/Day Years Used Date Smoking Tobacco: Never Assessed Comments Unknown Sex and Gender Information Value Date Recorded Sex Assigned at Not on file 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 X RAY EXAMINER OF AIRCRAFT Gender Identity Not on file Sexual Orientation Not on file documented as of this encounter Plan of Treatment Not on file documented as of this encounter Visit Diagnoses Diagnosis Acute sinusitis, unspecified- Primary Acute bronchitis documented in this encounter Care Teams Head Neck Surgeon Relationship Specialty Start Date End Date Veronica Carvajal MD [address] [phone] PCP - General Family Practice 11/20/20 documented as of this encounter
--- OUTSIDE RECORDS SUMMARY | 2025-08-08 20:10 | XMS_ITS | Encounter Summary ---
Author Organization [facility] Address [address] [place] [address] Care Team Providers Care Note Keeper Name Role Phone Nir Paulson MD Primary Care Provider [phone] Reason for Visit * Reason Onset Date Comments Results 07/31/2025 Encounter Details Date Type Department Care Team (Latest Contact Info) Description 07/31/2025 Results Follow-Up [facility] Pulmonology [address] [place] [address] [place] [address] Tammie Saldivar, MORTISING MACHINE OPERATOR [address] [place] [address] [address] CHEST HIGH RESOLUTION Social History Tobacco Use Types Packs/Day Years [...] worry about transportation for future doctor visits, lease picker medication, etc.? No 2024 Housing Stability [...] on file Legal Sex Female 3:40 AM PILE DRIVING TECHNICIAN Gender Identity Not on file Sexual Orientation Not on file documented as of this encounter Miscellaneous Notes * Telephone Encounter - Lety Hayward - 08/06/2025 9:04 AM CST Called to let pt know that her CT chest shows multiple rib fractures that have been there but nothing else going on in her lungs, some scarring but no consolidation or nodules. She has an appt with Dr. Gabe Figueroa on 08/13/25 that she can talk about this more at that appt. Pt did not answer. DRIVING TECHNICIAN DRIVING TECHNICIAN documented in this encounter Plan of Treatment Upcoming Encounters Date Type Department Care Team (Late st Contact Info) Description 08/13/2025 9:15 AM PILE DRIVING TECHNICIAN Office Visit [facility] Pulmonology [address] [address] [place] [address] Jaymie Figueroa MD [address] [place] [phone] 08/27/2025 2:20 PM PILE DRIVING TECHNICIAN Telephone Check Up [facility] Neurosurgery [address] [address] [place] [address] Martínez Han MD [address] [place] [address] 11/07/2025 2:40 PM CDT Office Visit [facility] Family [facility] [address] [place] [address] Nir Paulson MD [address] [place] [address] 11/13/2025 2:30 PM CDT Office Visit [facility] [address] [place] [address] Alfred Tracy MD [address] [place] [address] 01/07/2026 1:00 PM CDT Office Visit [facility] [address] [place] [address] Berlin Summers PA [address] [place] [address] 01/15/2026 8:45 AM CDT Office Visit [facility] Neurology - [place] [address] [place] [phone] Martínez Han MD [address] [place] [address] Yaneth Bass MD [address] [place] [address] 08/13/2026 3:00 PM PILE DRIVING TECHNICIAN Office Visit [facility] Douglas Zheng Dukes [address] [place] [address] Nanda Mg NP [address] [place] [address] documented as of this encounter Visit Diagnoses Not on filedocumented in this encounter Care Teams Note Keeper Relationship Specialty Start Date End Date Nir Paulson MD [address] [place] [phone] PCP - General Family Practice 10/13/21 documented as of this encounter
--- OUTSIDE RECORDS SUMMARY | 2025-08-08 20:10 | XMS_ITS | Encounter Summary ---
Author Organization [facility] Address [address] [place] [address] Care Team Providers Care Investment Officer Name Role Phone Nir Paulson MD Primary Care Provider [phone] Reason for Visit * Reason Onset Date Comments Results 09/14/2024 Encounter Details Date Type Department Care Team (Late st Contact Info) Description 09/14/2024 Results Follow-Up [facility] Medicine [place] [address] [address] Oralia Elliott FNP [address] [address] URIC ACID Social History Tobacco [...] on file Legal Sex Female 3:40 AM RISK ENGINEER Gender Identity Not on file Sexual Orientation Not on file documented as of this encounter Miscellaneous Notes * Telephone Encounter - Suri Palacios RN - 09/14/2024 2:48 PM RISK ENGINEER 09/14/2024 2:48 PM No answer. No voicemail or answering machine. Will continue to try to reach patient/caregiver. . Ifpatient/caregiver calls back, contact center please tell caller to review the information which canbe accessed via My [employer] Concierge and call back with any questions. Suri RN ENGINEER * Telephone Encounter - Suri Palacios RN - 09/14/2024 2:48 PM RISK ENGINEER ----- Message from Oralia Elliott sent at 09/14/2024 2:40 PM RISK ENGINEER ----- Uric acid is normal Crystal Tawana Elliott, WOODS SUPERINTENDENT, 09/14/2024 2:40 PM ENGINEER documented in this encounter Plan of Treatment Upcoming Encounters Date Type Department Care Team (Late st Contact Info) Description 08/13/2025 9:15 AM RISK ENGINEER Office Visit [facility] Pulmonology [address] [place] [address] Jaymie Figueroa MD [address] [place] [address] 08/27/2025 2:20 PM RISK ENGINEER Telephone Check Up [facility] Neurosurgery [address] [place] [address] Martínez Han MD [address] [place] [address] 11/07/2025 2:40 PM CDT Office Visit [facility] Family Medicine [place] [address] [address] Nir Paulson MD [address] [address] 11/13/2025 2:30 PM CDT Office Visit [facility] [address] [place] [address] Alfred Tracy MD [address] [place] [address] 01/07/2026 1:00 PM CDT Office Visit [facility] [address] [place] [address] Berlin Summers PA [address] [place] [address] 01/15/2026 8:45 AM CDT Office Visit [facility] Neurology - [place] [address] [place] [address] Martínez Han MD [address] [place] [address] Yaneth Bass MD [address] [place] [address] 08/13/2026 3:00 PM RISK ENGINEER Office Visit [facility] Douglas Zheng [place] [address] [place] [address] Nanda Mg NP [address] [place] [address] documented as of this encounter Visit Diagnoses Not on filedocumented in this encounter Additional Health Concerns Infection Onset Date Last Indicated Resolved Time R/O Respiratory 06/19/2025 06/20/2025 06/20/2025 6 :41 PM CDT Parainfluenza 06/20/2025 06/20/2025 07/04/2025 10: 21 PM RISK ENGINEER documented as of this encounter Care Teams Investment Officer Relationship Specialty Start Date End Date Nir Paulson MD [address] [place] [phone] PCP - General Family Practice 10/13/21 documented as of this encounter
--- OUTSIDE RECORDS SUMMARY | 2025-08-08 20:10 | XMS_ITS | Encounter Summary ---
Author Organization [facility] Address [address] [place] [address] Care Team Providers Care Diesel Mechanic Name Role Phone Veronica Carvajal MD Primary Care Provider Encounter Details Date Type Department Care Team (Latest Contact Info) Description 08/10/2002 Outpatient Historical [facility] Nir Soto MD [address] [place] [address] UNS ASTHMA WOSTATUS ASTHMATICUS (Primary Dx); MIGRAINE NOS W/O MENTN INTRACTABLE Social History Tobacco Use Types Packs/Day Years Used Date Smoking Tobacco: Never Assessed Comments Unknown Sex and Gender Information Value Date Recorded Sex Assigned at Not on file 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 MACHINIST SUPERVISOR Gender Identity Not on file Sexual Orientation Not on file documented as of this encounter Plan of Treatment Not on file documented as of this encounter Visit Diagnoses Diagnosis Unspecified asthma(493.90)- Primary Unspecified asthma Migraine, unspecified, without mention of intractable migraine without mention of status migrainosus documented in this encounter Care Teams Diesel Mechanic Relationship Specialty Start Date End Date Veronica Carvajal MD [address] [phone] PCP - General Family Practice 11/20/20 documented as of this encounter
--- OUTSIDE RECORDS SUMMARY | 2025-08-08 20:10 | XMS_ITS | Encounter Summary ---
Author Organization [facility] Address [address] [place] [address] Care Team Providers Care Site Coordinator Name Role Phone Nir Paulson MD Primary Care Provider [phone] Encounter Details Date Type Department Care Team (Late Contact Info) Description 11/02/2024 Lab Requisition [facility] Laboratory Services [place] [address] [phone] EarlOralia, IT APPLICATIONS DEVELOPER [address] [phone] Cramp and spasm; Spontaneous ecchymoses Social History [...] on file Legal Sex Female 3:40 AM DIVINITY TEACHER Gender Identity Not on file Sexual Orientation Not on file documented as of this encounter Plan of Treatment Upcoming Encounters Date Type Department Care Team (Late Contact Info) Description 08/13/2025 9:15 AM DIVINITY TEACHER Office Visit [facility] Pulmonology [address] [place] [address] [place] [address] Jaymie Figueroa MD [address] [place] [address] 08/27/2025 2:20 PM DIVINITY TEACHER Telephone Check Up [facility] Neurosurgery [address] [place] [address] [place] [address] Martínez Han MD [address] [place] [address] 11/07/2025 2:40 PM CDT Office Visit [facility] Family Medicine [place] [address] [address] Nir Paulson MD [address] [address] 11/13/2025 2:30 PM CDT Office Visit [facility] [address] [place] [address] Alfred Tracy MD [address] [place] [address] 01/07/2026 1:00 PM CDT Office Visit [facility] [address] [place] [address] Berlin Summers PA [address] [place] [address] 01/15/2026 8:45 AM CDT Office Visit [facility] Neurology - [place] [address] [place] [address] Martínez Han MD [address] [place] [address] Yaneth Bass MD [address] [place] [address] 08/13/2026 3:00 PM DIVINITY TEACHER Office Visit [facility] Douglas Zheng [place] [address] [place] [address] Workman Nandaishaan Tello, DATA ANALYST ETL DEVELOPER [address] [place] [address] documented as of this encounter [...] - 192 U/L 11/02/2024 3:59 PM CDT [facility] Blood BLOOD SPECIMEN / Unknown Collection / Unknown 11/02/2024 3:30 PM CDT 11/02/2024 3:37 PM CDT us Oralia Elliott IT APPLICATIONS DEVELOPER CHEMISTRY ORDERABLES Fin al Result [facility] CLIA # [id number] [address] [place] [address] * MAGNESIUM LEVEL (11/02/2024 3:30 PM CDT) MAGNESIUM 2.2 1.6 - 2.6 mg/dL 11/02/2024 3:59 PM CDT [facility] Blood BLOOD SPECIMEN / Unknown Collection / Unknown 11/02/2024 3:30 PM CDT 11/02/2024 3:37 PM CDT us Oralia Frederick Earl IT APPLICATIONS DEVELOPER CHEMISTRY ORDERABLES Fin al Result [facility] CLIA # [id number] [address] [place] [address] * (ABNORMAL) COMPREHENSIVE METABOLIC PANEL (11/02/2024 3:30 PM CDT) Pathologist [facility] SODIUM 136 136 - 145 mmol/L 11/02/2024 3:59 PM CDT [facility] POTASSIUM 4.6 3.5 - 5.1 mmol/L 11/02/2024 3:59 PM [facility] CHLORIDE 97(L) 98 - 107 mmol/L 11/02/2024 3:59 PM T [facility] CO2 28 22 - 29 mmol/L 11/02/2024 3:59 PM T [facility] CALCIUM 9.6 8.6 - 10.0 mg/dL 11/02/2024 3:59 PM T [facility] BUN 19 6 - 20 mg/dL 11/02/2024 3:59 PM T [facility] CREATININE 0.84 0.51 - 0.95 mg/dL 11/02/2024 3:59 PM [facility] GLUCOSE 181(H) 74 - 99 mg/dL 11/02/2024 3:59 PM [facility] TOTAL PROTEIN 7.0 6.6 - 8.7 g/dL 11/02/2024 3:59 PM T [facility] ALBUMIN 4.3 4.0 - 4.9 g/dL 11/02/2024 3:59 PM CDT [facility] BILIRUBIN TOTAL 0.3 <=1.2 mg/dL 11/02/2024 3:59 PM CDT [facility] ALKALINE PHOSPHATASE 91 35 - 104 U/L 11/02/2024 3:59 PM CDT [facility] AST 25 0 - 35 U/L 11/02/2024 3:59 PM CDT [facility] ALT 29 0 - 35 U/L 11/02/2024 3:59 PM CDT [facility] GFR >60 >=60 mL/min/1.7 3 sq meter 11/02/2024 3:59 PM T [facility] Comment:eGFR calculated with 2020 CKD-EPI equation. Vegetarian diet, extremely high or low muscle mass, and may affect results. Cystatin C with Glomerular Filtration Rate is a suitable alternative for these patients. ANION GAP 11 5 - 20 mmol/L 11/02/2024 3:59 PM T [facility] Blood BLOOD SPECIMEN / Unknown Collection / Unknown 11/02/2024 3:30 PM CDT 11/02/2024 3:37 PM CDT Oralia Elliott IT APPLICATIONS DEVELOPER CHEMISTRY ORDERABLES Fin al Result [id number] [address] [place] [address] * (ABNORMAL) CBC WITH DIFFERENTIAL (11/02/2024 3:30 PM CDT) WBC 11.0(H) 4.0 - 10.0 K/uL 11/02/2024 3:41 PM CDT [facility] RBC 4.00 3.93 - 5.22 M/uL 11/02/2024 3:41 PM T [facility] HEMOGLOBIN 12.1 11.2 - 15.7 g/dL 11/02/2024 3:41 PM CDT [facility] HEMATOCRIT 36.8 34.1 - 44.9 % 11/02/2024 3:41 PM [facility] MCV 92.0 79.4 - 94.8 fL 11/02/2024 3:41 PM [facility] MCH 30.3 25.6 - 32.2 pg 11/02/2024 3:41 PM [facility] MCHC 32.9 32.2 - 35.5 g/dL 11/02/2024 3:41 PM [facility] RDW 15.5(H) 11.0 - 14.5 % 11/02/2024 3:41 PM [facility] RDW-STDEV 52.7 36.9 - 56.9 fL 11/02/2024 3:41 PM [facility] PLATELETS 504(H) 163 - 337 K/uL 11/02/2024 3:41 PM [facility] MPV 8.6(L) 10.0 - 14.8 fL 11/02/2024 3:41 PM [facility] NEUTROPHILS 76(H) 34 - 71 % 11/02/2024 3:41 PM [facility] LYMPHOCYTES 16(L) 19 - 52 % 11/02/2024 3:41 PM [facility] MONOCYTES 7 5 - 13 % 11/02/2024 3:41 PM [facility] EOSINOPHILS 0(L) 1 - 6 % 11/02/2024 3:41 PM [facility] BASOPHILS 1 0 - 1 % 11/02/2024 3:41 PM [facility] IMMATURE GRANULOCYTES 1 % 11/02/2024 3:41 PM [facility] NEUTROPHIL ABSOLUTE 8.33(H) 1.56 - 6.13 K/uL 11/02/2024 3:41 PM [facility] LYMPHOCYTE ABSOLUTE 1.75 1.20 - 3.40 K/uL 11/02/2024 3:41 PM [facility] MONOCYTE ABSOLUTE 0.71(H) 0.24 - 0.36 K/uL 11/02/2024 3:41 PM [facility] EOSINOPHIL ABSOLUTE 0.02(L) 0.04 - 0.36 K/uL 11/02/2024 3:41 PM CDT [facility] BASOPHILS ABSOLUTE 0.09(H) 0.01 - 0.08 K/uL 11/02/2024 3:41 PM CDT [facility] IMMATURE GRANULOCYTES ABSOLUTE 0.09 K/uL 11/02/2024 3:41 PM CDT [facility] Blood BLOOD SPECIMEN / Unknown Collection / Unknown 11/02/2024 3:30 PM CDT 11/02/2024 3:37 PM CDT us Oralia Francosalome Nances IT APPLICATIONS DEVELOPER HEMATOLOGY ORDERABLES Fi nal Result [facility] CLIA # [id number] [address] [place] [address] documented in this encounter Visit Diagnoses Diagnosis Cramp and spasm Spontaneous ecchymoses documented in this encounter Additional Health Concerns Infection Onset Date Last Indicated Resolved Time R/O Respiratory 06/19/2025 06/20/2025 06/20/2025 6 :41 PM CDT Parainfluenza 06/20/2025 06/20/2025 07/04/2025 10: 21 PM DIVINITY TEACHER documented as of this encounter Care Teams Site Coordinator Relationship Specialty Start Date End Date Nir Paulson MD [address] [place] [phone] PCP - General Family Practice 10/13/21 documented as of this encounter
--- OUTSIDE RECORDS SUMMARY | 2025-08-08 20:10 | XMS_ITS | Encounter Summary ---
Author Organization [facility] Address [address] [place] [address] Care Team Providers Care Correctional Security Officer Name Role Phone Veronica Carvajal MD Primary Care Provider Encounter Details Date Type Department Care Team (Latest Contact Info) Description 07/04/1999 Outpatient Historical [facility] Nir Soto MD [address] [place] [address] Foreign body in unspecified site on external eye (Primary Dx) Social History Tobacco Use Types Packs/Day Years Used Date Smoking Tobacco: Never Assessed Comments Unknown Sex and Gender Information Value Date Recorded Sex Assigned at Not on file 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 GREEN MEAT GRADER Gender Identity Not on file Sexual Orientation Not on file documented as of this encounter Plan of Treatment Not on file documented as of this encounter Visit Diagnoses Diagnosis Foreign body in unspecified site on external eye- Primary documented in this encounter Care Teams Correctional Security Officer Relationship Specialty Start Date End Date Veronica Carvajal MD [address] [phone] PCP - General Family Practice 11/20/20 documented as of this encounter
--- OUTSIDE RECORDS SUMMARY | 2025-08-08 20:10 | XMS_ITS | Patient Health Record ---
Author Organization [facility] Address [address] [facility] Debora MYESHA GLOVER, RAFA [address] Care Team Providers Care Mis Director Name Role Phone Nir Paulson MD Primary Care Provider Unavaila Kira Harkins Unavailable [phone] Kyle Nanda Unavailable [phone] Allergies Allergen (clinical drug ingredient) Drug/Non Drug Allergy documented on EMR Reaction Allergy Type Onset Date Status leflunomide Arava Hair loss Drug Allergy Activ e methotrexate Methotrexate Sodium nausea Drug Allergy Active phentermine Phentermine HCl headache, hypertension Drug Allergy Active certolizumab pegol Cimzia Unknown Drug Allergy Active lisinopril Lisinopril Unknown Drug Allergy Activ e Results Component Value Reference Range Flag Notes Fluoro Needle For Placement - Spine 77488 Reviewed date:09/20/2024 10:20:34 AM Interpretation: Performing Lab: Notes/Report: Basic Metabolic Panel (BMP) 33259 Reviewed date:11/14/2024 08:02:05 AM Interpretation: Performing Lab: Notes/Report: Sodium 138 136-145 MMOL/L Potassium 3.9 3.5-5.1 MMOL/L Chloride 98 98-107 MMOL/L CO2 30.0 20.0-31.0 MMOL/L Glucose Serum 103 71-110 MG/DL Testing p erformed at [facility], [address] [place] [address] Ham Myesha Glover, RAFA [address]. CLIA ID#: [id number] BUN 17 7-21 MG/DL Creat .77 .51-1.17 MG/DL K-hjlams-f-benzoquinone imine (NAPQI) is a metabolite of acetaminophen, [...] 8.7-10.4 MG/DL Osmo Serum,Calculated 288 280-300 MOSM/KG zzzUrine Drug Screen (confir mation by instrument) - 34866 Reviewed date:08/29/2024 12:48:06 PM Interpretation: Performing Lab: Notes/Report: Urine Drug Screen (cup read) - 34672 Reviewed date:08/22/2024 11:16:40 AM Interpretation:Positive Performing Lab: Notes/Report: Positive AMP + BZO + OXY + Reason For Referral No Information Medications Medication SIG (Take, Route, Frequency, Duration) Notes Start Date End Date Status Famotidine 40 MG Tablet 1 tablet at bedtime Orally Once a day Active HYDROcodone-Acetaminoph en 10-325 MG Tablet 1 tablet as needed Orally every 6 hrs Active predniSONE 5 MG Tablet 1-2 tabs po daily prn Oral; Duration: 30 Prednisone 5mg Tablet 1-2 tabs po daily prn 05/24/20 13 Not-Takin g Morphine Sulfate 15 MG Tablet Take 1 tab by mouth BID. Oral; Duration: 30 Morphine Sulfate 15mg Tablet Take 1 tab by mouth BID. 05/24/20 13 Not-Takin g Hydrocortisone 20 MG Tablet 1 tablet [...] 1 tab po q hs 05/24/20 13 Lindsey joycelyn Cyclobenzaprine HCl 10 MG Tablet 1 tab (s) po q 8 hours prn muscle spasm Oral; Duration: 30 Cyclobenzaprine HCl 10mg Tablet 1 tab (s) po q 8 hours prn muscle spasm 05/24/20 13 Francescaoziel hirsch Hizentra 10 GM/50ML Solution as directed Subcutaneous Active medroxyPROGESTERone Acetate 10 MG Tablet 1 tab(s) po qd Oral; Duration: 30 Medroxyprogesterone Acetate 10mg Tablet 1 tab(s) po qd 05/24/20 13 Lindsey joycelyn hydroCHLOROthiazide 50 MG Tablet Take 1 tablet(s) by mouth daily Oral; Duration: 30 Hydrochlorothiazide (HCTZ) 50mg Tablet Take 1 tablet(s) by mouth daily 05/24/20 13 RenettaPhoenixoziel joycelyn Spiriva HandiHaler 18 MCG Capsule 1 capsule [...] mouth bid #60 (Sixty) capsule(s) 05/25/20 13 RenettaDipak hirsch Spironolactone 50 MG Tablet 1 tablet Orally [...] Status Risk Notes Problem Chronic pain syndrome (318978684) Chronic pain syndrome (G89.4) Active confirmed Problem Lumbosacral radiculopathy (8060114) Radiculopathy, lumbosacral region (M54.17) Active confirmed Problem Neurogenic claudication (152291921) Spinal stenosis, lumbar region with neurogenic claudication (M48.062) Active confirmed Problem Lumbar radiculopathy (590652656) Lumbar radiculopathy (M54.16) Active confirmed Problem Pain in right leg (368374952) Right leg pain (M79.604) Active confirmed Problem Pain in left leg (715965634) Left leg pain (M79.605) Active confirmed Problem Degeneration of lumbar intervertebral disc (04811532) Lumbar degenerative disc disease (M51.36) Active confirmed Problem Degeneration of lumbar intervertebral disc (43696231) Degenerative disc disease, lumbar (M51.36) Active confirmed Problem Chronic pain (59582709) Chronic pain (G89.29) Active confirmed Problem Acquired spondylolisthesis (900111616) Spondylolisthesis at L4-L5 level (M43.16) Active confirmed Problem Arthropathy of lumbar facet joint (disorder) (108830583) Facet arthropathy, lumbar (M47.816) Active confirmed Problem Rheumatoid arthritis (94508522) Rheumatoid arthritis (714.0) 013 Active confirmed [facility] [place]-98 5911- Vital Signs Height-cm 170.18 cm 05/01/2025 Weight-kg 91.63 kg 05/01/2025 Height 67 in 05/01/2025 Weight 202 lbs 05/01/2025 BMI 31.63 kg/m2 05/01/2025 Procedures Procedure Date Ordered Date Performed Result Body Sit e Epidural, Lumbar/Sacral (Cau judy), w/ imaging guidance - 89500 09/20/2024 09/20/2024 N/A Conscious Sedation, Professi onal Only - 17353 09/20/2024 09/20/2024 N/A Encounters Encounter Location Date Provider Diagnosis [facility] [address] [address] [facility] G89.4 ; Radiculopathy, lumbosacral region M54.17 ; Spinal stenosis, lumbar region with neurogenic claudication M48.062 ; Strain of muscle, fascia and tendon of the posterior muscle group at thigh level, unspecified thigh, sequela S76.319S ; Chronic prescription opiate use Z79.891 and Hamstring tear S76.319A [facility] [address] [address] 02/08/2025 Nanda Wright Chronic pain syndrome G89.4 ; Radiculopathy, lumbosacral region M54.17 ; Spinal stenosis, lumbar region with neurogenic claudication M48.062 and Chronic prescription opiate use Z79.891 [facility] [address] [address] 12[facility]19[facility]20[facility] Chronic pain syndrome G89.4 ; Radiculopathy, lumbosacral region M54.17 ; Spinal stenosis, lumbar region with neurogenic claudication M48.062 ; Hamstring tear S76.319A and Chronic prescription opiate use Z79.891 [facility] [address] [place] [address] 11/28/2024 Kira Lyuksyutova-Pric e Chronic pain syndrome G89.4 ; Radiculopathy, lumbosacral region M54.17 ; Spinal stenosis, lumbar region with neurogenic claudication M48.062 and Chronic prescription opiate use Z79.891 [facility] [address] [facility] [place] [address] 11/08/2024 Kira Lyuksyutova-Pric e Chronic pain syndrome G89.4 ; Radiculopathy, lumbosacral region M54.17 ; Spinal stenosis, lumbar region with neurogenic claudication M48.062 and Chronic prescription opiate use Z79.891 [facility] [place] [address] [place] [address] 10/10/2024 Kira Lyuksyutova-Pric e Chronic pain syndrome G89.4 ; Radiculopathy, lumbosacral region M54.17 ; Spinal stenosis, lumbar region with neurogenic claudication M48.062 and Chronic prescription opiate use Z79.891 [facility] [address] [facility] [place] [address] 09/20/2024 Kira Lyuksyutova-Pric e Spinal stenosis, lumbar region with neurogenic claudication M48.062 [facility] [place] [address] [place] [address] 08/22/2024 Kira Lyuksyutova-Pric e Chronic pain syndrome G89.4 ; Radiculopathy, lumbosacral region M54.17 ; Spinal stenosis, lumbar region with neurogenic claudication M48.062 and Chronic prescription opiate use Z79.891 [facility] [address] [facility] [place] [address] 12/28/2024 Kira Yaeluksyutova-Pric e [facility] [address] [facility] [place] [address] 11/10/2024 Kira Conleyuksyutova-Pric e [facility] [address] [facility] [place] [address] 11/01/2024 Kira Conleysyceasar-Pric e [facility] [address] [facility] [place] [address] 09/21/2024 Kira Longosyceasar-Pric e [facility] [address] [place] [place] [address] 09/21/2024 Kira Irahetaceasar-Pric e Assessments Encounter Date Diagnosis (ICD Code) Assessment Notes Treatment Notes Treatment Clinical Notes Section Notes 09/20/2024 Spinal stenosis, lumbar region with neurogenic claudication (ICD-10 - M48.062) 11/08/2024 Chronic pain syndrome (ICD-10 - G89.4) [...] follow up already scheduled with me in [place]. I'll call her with the lab results. 11/08/2024 Radiculopathy, lumbosacral region (ICD-10 - M54.17) 12/19/2024 Chronic pain syndrome (ICD-10 - G89.4) [...] therapy pool that her son is the manager asset management of. We'll see her back in one months time. I also counseled her to trial Lidocaine patches OTC as her insurance does not cover Lidocaine 5% patches for her diagnosis. 12/19/2024 Radiculopathy, lumbosacral region (ICD-10 - M54.17) 02/08/2025 [...] the procedure and all questions were answered. 05/01/2025 Chronic pain syndrome (ICD-10 - G89.4) [...] has been working with her physician in [place] who manages her hypogammaglobulinemia, and they have [...] are managed by Dr. Baldwin out of [place]. I encouraged her to discuss with her [...] workup and evaluation from her doctor in [place]. 05/01/2025 Radiculopathy, lumbosacral region (ICD-10 - M54.17) 11/28/2024 [...] get her schedueld for episodic caudal DELFINO. 10/10/2024 Chronic pain syndrome (ICD-10 - G89.4) [...] 10/10/2024 Radiculopathy, lumbosacral region (ICD-10 - M54.17) 08/22/2024 [...] opiates [place], we discussed that I will not be taking over these, she is just seeing me for interventional procedures. 08/22/2024 Radiculopathy, lumbosacral region (ICD-10 - M54.17) 08/22/2024 Spinal stenosis, lumbar region with neurogenic [...] cooperation, while also minimizing anxiety and discomfort. 10/10/2024 Spinal stenosis, lumbar region with neurogenic claudication (ICD-10 - M48.062) 11/28/2024 Radiculopathy, lumbosacral region (ICD-10 - M54.17) 05/01/2025 Spinal stenosis, lumbar region with neurogenic claudication (ICD-10 - M48.062) 02/08/2025 Radiculopathy, lumbosacral region (ICD-10 - M54.17) 12/19/2024 Spinal stenosis, lumbar region with neurogenic claudication (ICD-10 - M48.062) 11/08/2024 Spinal stenosis, lumbar region with neurogenic claudication (ICD-10 - M48.062) 11/08/2024 Chronic prescription opiate use (ICD-10 - Z79.891) 02/08/2025 Spinal stenosis, lumbar region with neurogenic claudication (ICD-10 - M48.062) 05/01/2025 Strain of muscle, fascia and tendon of the posterior muscle group at thigh level, unspecified thigh, sequela (ICD-10 - S76.319S) 11/28/2024 Spinal stenosis, lumbar region with neurogenic claudication (ICD-10 - M48.062) 10/10/2024 Chronic prescription opiate use (ICD-10 - Z79.891) 08/22/2024 Chronic prescription opiate use (ICD-10 - Z79.891) 12/19/2024 Hamstring tear (ICD-10 - S76.319A) 11/28/2024 Chronic prescription opiate use (ICD-10 - Z79.891) 05/01/2025 Chronic prescription opiate use (ICD-10 - Z79.891) 02/08/2025 Chronic prescription opiate use (ICD-10 - [...] both accurate and complete. 11/28/2024 Other Dolores Lyons am scribing for Dr. Frye. Dr. Uday Lyons, personally performed the services described in this documentation, as scribed by Dolores Peña, and it is both accurate and complete. 12/19/2024 Other lidocaine 4 % patches called in to patient's POC #15 for hamstring tear Dolores Lyons am scribing for Dr. Frye. Dr. Uday Lyons, personally performed the services described in this documentation, as scribed by Dolores Peña, and it is both accurate and complete. 05/01/2025 Other Johnathan Lyons am scribing for Dr. Kira Muro. Kira Lyons personally performed the services described in this documentation, as scribed by Johnathan Kay, and it is both accurate and complete. Plan Of Treatment Pending Test Test Name Order Date Prothrombin Time 84569 07/29/2022 Prothrombin Time 66156 08/03/2022 ABORh 40393, 40212 07/29/2022 ABORh 15464, 31058 08/03/2022 Antibody Screen 83111 07/29/2022 Antibody Screen 82678 08/03/2022 Basic Metabolic Panel (BMP) 93005 2021 Basic Metabolic Panel (BMP) 17397 2022 Basic Metabolic Panel (BMP) 63475 2021 CBC w\ Auto Diff 40123 09/08/2022 CBC w\ Auto Diff 19280 01/26/2023 CBC w\ Auto Diff 21946 08/03/2022 CBC w\ Auto Diff 86686 07/29/2022 Comprehensive Metabolic Panel (CMP) 8005 3 01/26/2023 Partial Thromboplastin Time 95894 2021 Partial Thromboplastin Time 31161 2021 Sedimentation Rate 25206 01/26/2023 CRP 83693 01/26/2023 Lumbosacral Spine AP/Lat-74455 3 Lumbosacral Spine AP/Lat-21397 3 Lumbosacral Spine AP/Lat-19843 3 Lumbosacral Spine AP/Lat-29059 3 Lumbosacral Spine AP/Lat-34193 3 Lumbosacral Spine AP/Lat-82254 3 MRI Lumbar Spine w/o Cont-84119 01/27/20 23 Electrocardiogram 12 Lead Tracing (EKG)- 55093 07/29/2022 Electrocardiogram 12 Lead Tracing (EKG)- 78509 08/03/2022 Future Test Test Name Order Date Epidural, Lumbar/Sacral (Caudal), w/ oswald ging guidance - 28708 04/03/2025 Next Appt Details Provider Name:Kira Iraheta Corinna, 09/04/2025 02:20:00 PM, [address] [place], [address], Insurance Providers Payer Name Payer Address Payer Phone Subscriber Number Group Number Insured Name Patient Relationship to Insured Coverage Start Date Coverage End Date [place] [address] [place] [address] [id number] Cathi Smith Self - patient is the insured Medical (General) History Medical History History ICD Code Rheumatoid Arthritis Migrain e Headaches CURRENT MEDICAL PROVIDERS:Set Decorator: [employer] PREVENTIVE HEALTH MAINTENANCE INFLUENZA VACCINE: was last [...]
--- OUTSIDE RECORDS SUMMARY | 2025-08-08 20:10 | XMS_ITS | Encounter Summary ---
Author Organization [facility] Address [address] [place] [address] Care Team Providers Care Bacon De Rinder Name Role Phone Nir Paulson MD Primary Care Provider [phone] Reason for Visit * Reason Comments Med Refill Encounter Details Date Type Department Care Team (Late st Contact Info) Description 08/07/2025 Refill [facility] [address] [place] [address] Alfred Tracy MD [address] [place] [address] Controlled type 2 diabetes mellitus without complication, without long-term current use of insulin ([facility]) Social History Tobacco Use Types Packs/Day Years [...] transportation for future doctor visits, pick up attendant medication, etc.? No 2024 Housing Stability Answer [...] on file Legal Sex Female 3:40 AM BETTING CLERKS Gender Identity Not on file Sexual Orientation Not on file documented as of this encounter Plan of Treatment Upcoming Encounters Date Type Department Care Team (Late st Contact Info) Description 08/13/2025 9:15 AM BETTING CLERKS Office Visit [facility] Pulmonology [address] [place] [address] Jaymie Figueroa MD [address] [place] [address] 08/27/2025 2:20 PM BETTING CLERKS Telephone Check Up [facility] Neurosurgery [address] [place] [address] Martínez Han MD [address] [place] [address] 11/07/2025 2:40 PM CDT Office Visit [facility] Family Medicine [place] [address] [address] Nir Paulson MD [address] [address] 11/13/2025 2:30 PM CDT Office Visit [facility] [address] [place] [address] Alfred Tracy MD [address] [place] [address] 01/07/2026 1:00 PM CDT Office Visit [facility] [address] [place] [address] Berlin Summers PA [address] [place] [address] 01/15/2026 8:45 AM CDT Office Visit [facility] [place] [address] [place] [address] Martínez Han MD [address] [place] [address] Yaneth Bass MD [address] [place] [address] 08/13/2026 3:00 PM BETTING CLERKS Office Visit [facility] [place] [address] [place] [address] Nanda Mg NP [address] [place] [address] documented as of this encounter Visit Diagnoses Diagnosis Controlled type 2 diabetes mellitus without complication, without long-term current use of insulin ([facility]) documented in this encounter Care Teams Bacon De Rinder Relationship Specialty Start Date End Date Nir Paulson MD [address] [facility] [place] [address] PCP - General Family Practice 10/13/21 documented as of this encounter
--- OUTSIDE RECORDS SUMMARY | 2025-08-08 20:10 | XMS_ITS | Encounter Summary ---
Author Organization [facility] Address [address] [place] [address] Care Team Providers Care Pump Mechanic Name Role Phone Veronica Carvajal MD Primary Care Provider [phone] Reason for Referral * Radiology Services (Routine) - Closed Specialty Diagnoses / Procedures Referred By Contac t Referred To Contact Pain Management Diagnoses Other back pain, unspecified chronicity Lumbosacral radiculitis Procedures XR FLUORO LESS THAN 1 HOUR Reymundo Liao MD [facility] Pain Management Procedures [place] [address] [place] [address] Phone: tel: fax: Referral ID Status Reason Start Date Expiration Date Visits Re quested Visits Authorized [id number] Closed 08/19/2020 09/19/2021 1 1 DULE PLANNING MANAGER Encounter Details Date Type Department Care Team (Late st Contact Info) Description 08/19/2020 Ancillary Orders [facility] Pain Management Procedures [place] [address] [place] [address] Reymundo Liao MD NO ADDRESS [...] on file 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 SCHEDULE PLANNING MANAGER Gender Identity Not on file [...] COVID-19? No / Unsure 08/22/2020 1:19 PM SCHEDULE PLANNING MANAGER documented as of this encounter Plan of Treatment Not on file documented as of this encounter Results * XR FLUORO LESS THAN 1 HOUR (08/19/2020 7:35 AM SCHEDULE PLANNING MANAGER) Narrative 08/19/2020 7:51 AM SCHEDULE PLANNING MANAGER Order information only. Exam was auto-finalized. Reymundo Liao MD DIAGNOSTIC IMAGING ORDERAB LES Final Result documented in this encounter Visit Diagnoses Diagnosis Other back pain, unspecified chronicity Lumbosacral radiculitis Thoracic or lumbosacral neuritis or radiculitis, unspecified Other back pain, unspecified chronicity Lumbosacral radiculitis Thoracic or lumbosacral neuritis or radiculitis, unspecified documented in this encounter Care Teams Pump Mechanic Relationship Specialty Start Date End Date Veronica Carvajal MD [address] [facility] [address] [place] [address] PCP - General Family Practice 11/20/20 documented as of this encounter
--- OUTSIDE RECORDS SUMMARY | 2025-08-08 20:10 | XMS_ITS | Encounter Summary ---
Author Organization [facility] Address [address] [place] [address] Care Team Providers Care Train Control Electronic Technician Name Role Phone Veronica Carvajal MD Primary Care Provider Encounter Details Date Type Department Care Team (Latest Contact Info) Description 04/04/2001 Outpatient Historical [facility] Nir Soto MD [address] [place] [address] Unspecified asthma(493.90) (Primary Dx); Nausea alone; state, incidental Social History Tobacco Use Types Packs/Day Years Used Date Smoking Tobacco: Never Assessed Comments Unknown Sex and Gender Information Value Date Recorded Sex Assigned at Not on file 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
--- OUTSIDE RECORDS SUMMARY | 2025-08-08 20:10 | XMS_ITS | Encounter Summary ---
Author Organization [facility] Address [address] [place] [address] Care Team Providers Care Heel Coverer Machine Operator Name Role Phone Veronica Carvajal MD Primary Care Provider [phone]- [phone] Reason for Referral * Outpatient Services (Routine) - Closed Specialty Diagnoses / Procedures Referred By Contac t Referred To Contact Diagnoses Abnormal findings on diagnostic imaging of breast Procedures MAMMO POST US/STEREO GUIDED PROCEDURE LT Tom Steen Jr., MD Phone: tel: fax: [facility] Pre-Registration [place] CALL TO MAKE APPOINTMENT ONLY [address] [place] [address] Phone: tel: fax: Referral ID Status Reason Start Date Expiration Date Visits Re quested Visits Authorized [id number] Closed 05/31/2017 07/01/2018 1 1 * Outpatient Services (Routine) - Closed Specialty Diagnoses / Procedures Referred By Contac t Referred To Contact Diagnoses Abnormal findings on diagnostic imaging of breast Procedures MAMMO BREAST US BIOPSY LEFT Tom Steen Jr., MD Phone: tel: fax: [facility] Pre-Registration [place] CALL TO MAKE APPOINTMENT ONLY [address] [place] [address] Phone: tel: fax: Referral ID Status Reason Start Date Expiration Date Visits Re quested Visits Authorized [id number] Closed 05/31/2017 07/01/2018 1 1 Encounter Details Date Type Department Care Team (Late st Contact Info) Description 05/31/2017 Ancillary Orders [facility] Breast [place] [address] [place] [address] Tom Steen Jr., MD [address] [place] [address] Abnormal findings on diagnostic imaging of breast [...] on file 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 DRILL PRESS HAND Gender Identity Not on file Sexual Orientation [...] mammogram in 6 months to ensure stability. [id number] Narrative 06/03/2017 3:46 PM CDT EXAM: MAMMO [...] Jr., MD MAMMO ORDERABLES Jodie l Result * MAMMO BREAST US BIOPSY LEFT [...] mammogram in 6 months to ensure stability. [id number] Narrative 06/03/2017 3:46 PM CDT EXAM: MAMMO [...] breast documented in this encounter Care Teams Heel Coverer Machine Operator Relationship Specialty Start Date End Date Veronica Carvajal MD [address] [facility] [address] [place] [address] PCP - General Family Practice 11/20/20 documented as of this encounter
[2025-08-08 20:11] VITALS: BP 157/89; PULSE 115; RESP 16; TEMP 36.8; O2SAT 95; BMI 32.9
[2025-08-08 20:37] VITALS: BP 174/137; PULSE 112; O2SAT 95
[2025-08-08 21:04] VITALS: RESP 16
[2025-08-08] MEDS: tetanus-dipt-pertussis 0.5 mL SDV IM (21:04)
[2025-08-08] MEDS: oxyCODONE 5 mg IR Tab/Cap PO (21:04)
--- NOTE | 2025-08-08 21:42 | W.ED.WOUNDLC ---
HPI - Wound/Laceration General: Chief Complaint: Wound/Laceration Stated Complaint: leg lac on edema. bleeding and weeping Time Seen by Provider: 08/08/25 20:11 History of Present Illness: Patient is a 55-year-old female with past medical history of rheumatoid arthritis, recurrent pneumonia who presents to the ED for a left leg laceration. She kicked a open door earlier this morning, no actual fall, had a mild amount of bleeding initially, but has had persistent weeping of serous fluid since. She has been experiencing bilateral leg edema since she has had recurrent pneumonias, no known history of heart failure, renal dysfunction, cirrhosis. She is not on blood thinners, has had no trauma since event, does not recall when her last tetanus shot was. Related Data Home Medications ?Medication ?Instructions ?Recorded ?Confirmed conjugated estrogens 0.625 mg/gram 0.625 mg vaginal .COMPLEX 10/03/19 07/04/25 vaginal cream (Premarin) losartan 100 mg tablet 100 mg PO DAILY 10/03/19 07/04/25 promethazine 25 mg tablet 25 mg PO Q6H PRN Nausea 10/03/19 07/04/25 fluticasone propionate 50 1 spray intranasal DAILY PRN 11/08/19 07/04/25 mcg/actuation nasal allergies spray,suspension levalbuterol tartrate 45 2 inh inhalation Q4H PRN Shortness 11/08/19 07/04/25 mcg/actuation aerosol inhaler Of Breath (Xopenex HFA) mometasone-formoterol HFA 100 2 puff inhalation BID 11/08/19 07/04/25 mcg-5 mcg/actuation aerosol inhaler (Dulera) azelastine 137 mcg (0.1 %) nasal 1 spray intranasal BID PRN 11/29/19 07/04/25 spray allergies ascorbic acid (vitamin C) 500 mg 500 mg PO DAILY 01/25/20 07/04/25 capsule vitamin B complex 1 cap PO DAILY 01/25/20 07/04/25 jaden root 1 tab PO DAILY 04/24/20 07/04/25 cholecalciferol (vitamin D3) 50 50 mcg PO DAILY 06/17/20 07/04/25 mcg (2,000 unit) capsule hydrocortisone 10 mg tablet See Rx Instructions .Route .COMPLEX 01/07/21 07/04/25 immune globulin,gamma(IgG)klhw 10 10 g SUBCUT Q7D 04/15/21 07/04/25 gram/50 mL(20%)subcut solution levocetirizine 5 mg tablet (Xyzal) 5 mg PO DAILY 06/17/21 07/04/25 methocarbamol 750 mg tablet 750 mg PO TID PRN Muscle Spasm 06/14/23 07/04/25 acetaminophen 500 mg capsule 500 mg PO BID PRN Pain 09/21/23 07/04/25 amlodipine 10 mg tablet 10 mg PO DAILY 06/24/25 07/04/25 celecoxib 200 mg capsule 200 mg PO BID 06/24/25 07/04/25 famotidine 40 mg tablet 40 mg PO DAILY PRN upset stomach 06/24/25 07/04/25 furosemide 20 mg tablet 20 mg PO DAILY PRN swelling 06/24/25 07/04/25 lidocaine 5 % topical patch 1 patch topical Q24H PRN Pain 06/24/25 07/04/25 metoprolol tartrate 25 mg tablet 25 mg PO DAILY PRN Migraine 06/24/25 07/04/25 Headache morphine 30 mg tablet,extended 30 mg PO BID PRN extended relief 06/24/25 07/04/25 release Previous Rx's ?Medication ?Instructions ?Recorded spironolactone 50 mg tablet 50 mg PO BID #60 tabs 07/26/20 etanercept 50 mg/mL (1 mL) 50 mg SUBCUT .Q7days #4 mL 12/11/24 subcutaneous syringe (Enbrel) Held on 07/04/25. Instructions: Doctor's Order tramadol 50 mg tablet 50 mg PO TID PRN pain #60 tabs 04/20/25 mupirocin 2 % topical ointment 1 applic topical TID #15 grams 05/02/25 insulin aspart U-100 100 unit/mL See Rx Instructions .Route 06/29/25 (3 mL) subcutaneous pen (Novolog .COMPLEX #15 mL FlexPen U-100 Insulin aspart) metoprolol succinate 50 mg 50 mg PO DAILY 30 days #30 tabs 06/29/25 tablet,extended release 24 hr prednisone 5 mg tablet 7.5 mg (1.5 x 5 mg) PO DAILY 30 06/29/25 days #45 tabs prednisone 10 mg tablet 10 mg PO DAILY joint pain #90 tabs 07/04/25 Allergies Allergy/AdvReac Type Severity Reaction Status Date / Time gabapentin Allergy unknown Verified 08/08/25 20:18 albuterol AdvReac Unknown RASH, Verified 08/08/25 20:18 BLISTERS TO FACE AND HTN certolizumab pegol (From AdvReac Unknown SWELLING Verified 08/08/25 20:18 Cimzia) hydralazine AdvReac Unknown HEADACHE/HT Verified 08/08/25 20:18 N/FLUSHING lisinopril AdvReac Unknown Unknown Verified 08/08/25 20:18 Review of Systems General: Reports: 10 or more systems reviewed and unremarkable except in HPI and below PFSH ED PFSH: Medical History (Updated 08/08/25 @ 21:36 by Daniel Erazo DO) Multifocal pneumonia Pleural effusion, left Hypogammaglobulinemia Seronegative rheumatoid arthritis of both hands Hx of diverticulitis of colon Recurrent infections Cholecystectomy planned Anxiety state Immunization counseling Rheumatoid arthritis with negative rheumatoid factor High risk medication use Immunosuppression Seronegative rheumatoid arthritis Opioid contract exists Encounter for long-term use of opiate analgesic Back pain, lumbosacral Cystocele Rectocele Surgical History S/P hernia repair Laparoscopic Incisional Hernia Repair 02/05/22 H/O left knee surgery ACL right H/O dilation and curettage H/O section H/O hernia repair H/O arthroscopic knee surgery History of colon resection Family History Other CAD (coronary artery disease) Diabetes Hypertension Lupus (systemic lupus erythematosus) Psychiatric illness Rheumatoid arthritis Denies family history of Anesthesia complication Bleeding disorder Social History Smoking and tobacco/nicotine status: former use of tobacco/nicotine Second hand smoke exposure: No Alcohol intake: former Substance/Drug Use: never Physical Exam Narrative: EXAM NARRATIVE: Well-appearing, mildly tachycardic but normotensive, afebrile, no acute distress. Bilateral lower extremities with moderate amount of nonpitting edema, 6 cm angled left anterior mabry laceration with weeping of serous fluid, mild subcu underlying tissue seen but fairly superficial, some bruising surrounding laceration, no arterial bleeding, no evidence of other injury. Full range of motion at left knee and left ankle joint, no lower leg tenderness, compartments soft, 2+ DP and PT pulse. No other traumatic injuries seen to other 3 extremities. Breathing comfortably on room air, saturating well, mild sinus tachycardia, normotensive, abdomen soft, nontender, nondistended, no chest wall tenderness, no CVA tenderness Procedures Laceration Laceration 1: Site: lower extremity Side (If applicable): left Size (cm): 6 Description: irregular Depth: simple, single layer Local Anesthetic: lidocaine 1% Amount of anesthesia used (mL): 5 Skin layer closed with: vicryl (rapide) Size (cm): 4-0 Number of sutures: 5 Technique: simple, interrupted Course Vital Signs: Vital signs: Vital Signs Temperature 98.2 F 08/08/25 20:11 Pulse Rate 112 H 08/08/25 20:37 Respiratory Rate 16 08/08/25 21:04 Blood Pressure 174/137 08/08/25 20:37 Pulse Oximetry 95 08/08/25 20:37 Oxygen Delivery Me thod Room Air 08/08/25 20:37 MDM - Wound/Laceration Medical Decision Making -ddx: Laceration, leg edema, acute blood loss, considered but less likely: Fracture, dislocation, neurovascular injury - Patient with low mechanism of injury yesterday, presents today because of weeping of serous fluid from wound, has dealt with moderate nonpitting edema since she has had recurrent infections, undergoing current workup for this, this is nothing new, also has some ecchymosis to her lower extremities, this is not new either, she is not on blood thinners, no other trauma, bleeding was slowly controlled after the event. Does not recall her last tetanus, this was updated, she was given oxycodone, lidocaine was then used to anesthetize the area and her wound was sutured together after discussion, because of her edema and thin skin, stated that some of the tissue might which is to be expected but she wanted the best approximation to help the weeping and so this was done but not too tightly as to create too much tension on the wound but was improved and good hemostasis after the procedure, it was wrapped with Kerlix and an Bryan bandage and repeat MSK and neurovascular exam intact, patient then deemed stable to be discharged, supportive care recommendations and wound care given, discharged in stable condition with at bedside. No radiology studies performed this visit Discharge Plan Discharge Patient Disposition: Home Clinical Impression: Laceration Condition: Stable Prescriptions: No Action losartan 100 mg tablet 100 mg PO DAILY promethazine 25 mg tablet 25 mg PO Q6H PRN (Reason: Nausea) Premarin 0.625 mg/gram cream 0.625 mg VAGINAL .COMPLEX Rx Instructions: Insert 1 gram vaginally 2-3 TIMES PER WEEK. levalbuterol tartrate [Xopenex HFA] 45 mcg/actuation HFA aerosol inhaler 2 inh INHALATION Q4H PRN (Reason: Shortness Of Breath) Dulera 100-5 mcg/actuation HFA aerosol inhaler 2 puff INHALATION BID azelastine 137 mcg (0.1 %) aerosol,spray 1 spray INTRANASAL BID PRN (Reason: allergies) fluticasone propionate 50 mcg/actuation spray,suspension 1 spray INTRANASAL DAILY PRN (Reason: allergies) ascorbic acid (vitamin C) 500 mg capsule 500 mg PO DAILY vitamin B complex Capsule 1 cap PO DAILY hydrocortisone 10 mg tablet See Rx Instructions .ROUTE .COMPLEX Rx Instructions: Take 20 mg by mouth in the am and 10mg in the afternoon. cholecalciferol (vitamin D3) 50 mcg (2,000 unit) capsule 50 mcg PO DAILY jaden root 1 tab PO DAILY immune globulin,gamma(IgG)klhw 10 gram/50 mL (20 %) solution 10 g SUBCUT Q7D levocetirizine [Xyzal] 5 mg tablet 5 mg PO DAILY acetaminophen 500 mg capsule 500 mg PO BID PRN (Reason: Pain) prednisone 10 mg tablet 10 mg PO DAILY Qty: 90 1RF methocarbamol 750 mg tablet 750 mg PO TID PRN (Reason: Muscle Spasm) Enbrel 50 mg/mL (1 mL) syringe 50 mg SUBCUT .Q7days Qty: 4 5RF mupirocin 2 % ointment 1 applic topical TID Qty: 15 0RF Rx Instructions: apply to wound TID and as needed with dressing changes, cover with band-aid spironolactone 50 mg tablet 50 mg PO BID Qty: 60 0RF tramadol 50 mg tablet 50 mg PO TID PRN (Reason: pain) Qty: 60 1RF celecoxib 200 mg capsule 200 mg PO BID morphine 30 mg tablet extended release 30 mg PO BID PRN (Reason: extended relief) amlodipine 10 mg tablet 10 mg PO DAILY lidocaine 5 % adhesive patch,medicated 1 patch topical Q24H PRN (Reason: Pain) furosemide 20 mg tablet 20 mg PO DAILY PRN (Reason: swelling) metoprolol tartrate 25 mg tablet 25 mg PO DAILY PRN (Reason: Migraine Headache) famotidine 40 mg tablet 40 mg PO DAILY PRN (Reason: upset stomach) Rx Instructions: refill request insulin aspart U-100 [Novolog FlexPen U-100 Insulin] 100 unit/mL (3 mL) insulin pen See Rx Instructions .ROUTE .COMPLEX Qty: 15 0RF Rx Instructions: inject subcut, tid after meals, based on low dose insulin sliding scale metoprolol succinate 50 mg tablet extended release 24 hr 50 mg PO DAILY 30 Days Qty: 30 0RF prednisone 5 mg tablet 7.5 mg PO DAILY 30 Days Qty: 45 0RF Discharge Orders: Discharge ED (Routine); Ordered 08/08/25 Ordered By: Daniel Erazo Referrals: Nir Paulson [Primary Care Provider, Family Practice] Discharge Diet: Usual diet Discharge Activity: Increase activity as tolerated Patient Instructions: Opioid Safety, Pain Management, Patient Portal & [facility]a Instructions Activity Restrictions/Additional Instructions: You were seen for the cut on your leg, this was repaired with stitches that are self dissolving and should go away on their own in the next 7 to 10 days. In the meantime for the next week, keep it covered whenever doing activity to best prevent it from getting infected but otherwise there are no restrictions or special modifications that need to be done with your leg. Wash with warm water at least once daily if possible. Some of the skin around the stitches might off because of the underneath he swelling, this can be expected and not necessarily a problem. Follow-up with your primary care physician in a week's time if you have concerns about the wound becoming infected. Return to the ED with severe worsening of the bleeding or pain at the site, inability to move or feel your leg, any other emergent concerns. Print Language: Bahamian Coding Level of Care Code ED Clinical Trials Specialist for Josh Hogan
== END 2025-08-08 21:44 | disposition home or self-care (01) ==
PROVIDERS: Emergency Provider Student in an Organized Health Care Education/Training Program; PCP Family Medicine
DX: S81.812A Laceration without foreign body, left lower leg, initial encounter (principal); Z79.4 Long term (current) use of insulin; Z87.891 Personal history of nicotine dependence; W19.XXXA Unspecified fall, initial encounter
CPT/HCPCS: 12002; 90471; 90715; 99283; J9999